=== PATIENT | male | born 1945 | race Caucasian/White ===

== ENCOUNTER 2016-03-12 15:46 | Emergency (ER) | payer MEDICARE ==
[~2016-03-12] VITALS: Ht 180.3 cm; Wt 94.8 kg
[~2016-03-12 15:46] MED LIST: APIX5TAB PO; ASP81CT PO; ASPI-983 PO; ATOR10TA66 PO; CEPH500C PO; CIPR-120 PO; CIPR-225 PO; CIPR500T78 PO; CPR250T PO; FNST5T PO; IBUP-30 PO; LEVO500T2 PO; LEVO500T80 PO; LISI10TA2 PO; LISI5TAB14 PO; Lisinopril PO; METO-270 PO; Metoprolol Succinate PO; NITR-65 PO; NITR100C3 PO; OMEG1CAP51 PO; OMG1KC PO; RIVA15TA PO; Rivaroxaban PO; SIMV10TA PO; SIMV40TA4 PO; Simvastatin PO; TMSL.4C PO; WARF7.5T PO
--- OUTSIDE RECORDS SUMMARY | 2016-03-12 15:51 | XMS REPORT | Continuity of Care Document ---
Author Author [facility] Organization [facility] Address Unknown Phone Unavailable Care Team Providers Care Flight Data Technician Name Role Phone ARNEL REZA MD PCP Insurance Providers Payer Name Policy Number Subscriber Name Relationship [employer] Gold Choice [id number] Jorge Alberto Caldwell 16 Self / Same As Patient Advance Directives Directive Response Recorded Date/Time Advance Directives No 03/15/14 5:31pm Health Care Power of Writing Manager No 03/15/14 5:31pm Organ Donor Yes 03/15/14 5:31pm Resuscitation Status Full Code 03/15/14 5:31pm Chief Complaint and Reason for Visit Chief Complaint BILATERAL PULMONARY EMBOLIS Reason for Visit Bilateral pulmonary embolism Chest pain Bilateral pulmonary embolism Problems Medical Problems Problem Onset Date Status acute renal failure/obstructive Unknown Active hematuria Unknown Active Obstructive Uropathy Unknown Active Urinary tract infectious disease Unknown Active hematuria Unknown Active Urinary obstruction Unknown Active UTI (urinary tract infection) Unknown Active Urinary tract infection Unknown Active Encounter for Sandhu catheter replacement Unknown Active Urinary tract infection Unknown Active Bilateral pulmonary embolism Unknown Active Chest pain Unknown Active Bilateral pulmonary embolism Unknown Active Medications Medication Dose Route Sig Days/Qty Instructions Order Date Discontinued Date Status Ciprofloxacin HCl 1 Tab PO TWICE A DAY 20 Qty 03/11/11 02/08/13 Discontinued Fish Oil 1,000 Mg PO DAILY 1 Qty 02/08/13 02/09/13 Discontinued [place]-3 Fatty Acids/Fish Oil 1,000 Mg PO DAILY 02/09/13 02/23/14 Discontinued Ibuprofen 400 Mg PO TWICE A DAY PRN PAIN TAKES 2 (200MG) TABLETS NEEDED FOR PAIN 02/09/13 03/03/13 Discontinued Warfarin Sodium 1 Each PO DAILY 03/03/13 02/23/14 Discontinued Tamsulosin HCl 0.4 Mg PO DAILY the patient has taken in several months 03/03/13 02/23/14 Discontinued Finasteride 5 Mg PO DAILY 03/03/13 02/23/14 Discontinued Aspirin 81 Mg PO DAILY 03/03/13 Active Nitrofurantoin Macrocrystals 100 Mg PO TWICE A DAY 7 Qty Clcr <60 mL/ minute: Contraindicated 03/05/13 09/11/13 Discontinued Cephalexin Monohydrate (Keflex) 1 Each PO FOUR TIMES DAILY 40 Qty 09/1102/23/14 Discontinued Nitrofurantoin Macrocrystals 1 Each PO TWICE A DAY 20 Qty 12/26/13 Discontinued Ciprofloxacin Hcl 250 Mg PO TWICE A DAY 7 Days 02/23/14 03/15/14 Discontinued [Rivaroxaban] 15 Mg PO BID@,17 42 Qty 03/19/14 Active [Metoprolol Succinate] 25 Mg PO DAILY 30 Qty 03/19/14 Active [Lisinopril] 5 Mg PO DAILY 30 Qty 03/19/14 Active [Simvastatin] 10 Mg PO BEDTIME 30 Qty 03/19/14 Active Social History Social History Problem Response Recorded Date/Time Alcohol Use Occasionally Uses 03/15/2014 5:32pm Recreational Drug Use No 03/15/2014 5:32pm Recent Foreign Travel No 09/11/2013 8:20am Recent Infectious Disease Exposure No 03/15/2014 5:32pm Hospitalization with Isolation Denies 03/19/2014 4:58pm Smoking Status Never a Smoker 03/15/2014 5:52pm Query Response Start Date Stop Date Smoking Status Never a Smoker Hospital Discharge Instructions No hospital discharge instructions. Plan of Care Discharge Date 03/19/14 3:19pm Disposition 30 STILL A PATIENT Instructions/Education Provided Pulmonary Embolism (DC) Prescriptions See Medications Section Referrals DR. TROTTER (Unspecified) Reason(s) for Referral: FOLLOW UP ON MARCH 26 AT 9:00 ([phone]) DR. REZA (Unspecified) Reason(s) for Referral: CALL TO SCHEDULE APPOINTMENT TO SEE DR. REZA IN 1 MONTH Care Plan and Goals Follow up with Dr Hernández per his reccomendation. Follow up with me in 1 month. Call in [facility] starter pac for first fill with #30 of the 20 mg tabs one daily after finishing starter pac with 11 refills thanks. Functional Status Query Response Date Recorded Comprehension Ability Understands Concepts March 17, 2014 9:00pm Allergies, Adverse Reactions, Alerts Allergen Type Severity Reaction Status Last Updated No Known Drug Allergies Active 02/08/13 Immunizations Name Given Type Date of Pneumonia Vaccine 02/11/13 Historical Date of Influenza Vaccine 02/11/13 Historical influenza, split (incl. purified surface antigen) 03/19/14 Administered influenza, split (incl. purified surface antigen) 03/19/14 Administered Vital Signs Acute Vital Signs Vital Response Date/Time Temperature (Fahrenheit) 98.0 degrees F (97.6 - 99.5) Temperature (Calculated Celsius) 36.27557 degrees C (36.4 - 37.5) Temperature Source Tympanic Pulse Rate (adult) 49 bpm (60 - 90) Respiratory Rate 20 bpm (12 - 24) O2 Sat by Pulse Oximetry 97 % (88 - 100) Blood Pressure 108/56 mm Hg Pain Pain Intensity 0 Height (Feet) 5 feet Height (Inches) 11.00 inches Height (Calculated Centimeters) 180.103607 cm Weight (Pounds) 203 pounds Weight (Ounces) 1.0 oz Weight (Calculated Grams) 52901.602 gm Weight (Calculated Kilograms) 92.115693 kilograms Calculated BMI 28.45 Results Laboratory Results Test Name Result Units Flags Reference Collection Date/Time Result Date/ Time Comments Urine Color YELLOW 02/23/2014 12:22pm 02/23/2014 1:10pm Urine Clarity VERY CLOUDY * 02/23/2014 12:22pm 02/23/2014 1:10pm Urine pH 6 5-9 02/23/2014 12:22pm 02/23/2014 1:10pm Urine Specific Lloyd 1.020 1.016-1.022 02/23/2014 12:22pm 2013 1:10pm Urine Protein 2+ * NEGATIVE 02/23/2014 12:22pm 02/23/2014 1:10pm Urine Glucose (UA) NEGATIVE NEGATIVE 02/23/2014 12:22pm 02/23/2014 1: 10pm Urine RBC (Auto) 3+ * NEGATIVE 02/23/2014 12:22pm 02/23/2014 1:10pm Urine Ketones NEGATIVE NEGATIVE 02/23/2014 12:22pm 02/23/2014 1:10pm Urine Nitrite NEGATIVE NEGATIVE 02/23/2014 12:22pm 02/23/2014 1:10pm Urine Bilirubin NEGATIVE NEGATIVE 02/23/2014 12:22pm 02/23/2014 1: 10pm Urine Urobilinogen NORMAL MG/DL NORMAL 02/23/2014 12:22pm 02/23/2014 1: 10pm Urine Leukocyte Esterase 3+ * NEGATIVE 02/23/2014 12:22pm 02/23/2014 1: 10pm Urine RBC 2-5 /HPF * 02/23/2014 12:22pm 02/23/2014 1:10pm Urine WBC >100 /HPF * 02/23/2014 12:22pm 02/23/2014 1:10pm Urine Bacteria FEW /HPF * 02/23/2014 12:22pm 02/23/2014 1:10pm Urine Squamous Epithelial Cells RARE /HPF 02/23/2014 12:22pm 2013 1:10pm Urine Crystals NONE /LPF 02/23/2014 12:22pm 02/23/2014 1:10pm Urine Casts NONE /LPF 02/23/2014 12:22pm 02/23/2014 1:10pm Urine Mucus NEGATIVE /LPF 02/23/2014 12:22pm 02/23/2014 1:10pm Urine Culture Indicated YES 02/23/2014 12:22pm 02/23/2014 1:10pm White Blood Count 5.1 10^3/uL 4.3-11.0 03/19/2014 3:30am 03/19/2014 4: 49am Red Blood Count 4.70 10^6/uL 4.35-5.85 03/19/2014 3:30am 03/19/2014 4: 49am Hemoglobin 14.4 G/DL 13.3-17.7 03/19/2014 3:30am 03/19/2014 4:49am Hematocrit 42 % 40-54 03/19/2014 3:30am 03/19/2014 4:49am Mean Corpuscular Volume 89 FL 80-99 03/19/2014 3:30am 03/19/2014 4: 49am Mean Corpuscular Hemoglobin 31 PG 25-34 03/19/2014 3:30am 03/19/2014 4: 49am Mean Corpuscular Hemoglobin Concent 34 G/DL 32-36 03/19/2014 3:30am 4:49am Red Cell Distribution Width 13.1 % 10.0-14.5 03/19/2014 3:30am 2014 4:49am Platelet Count 175 10^3/uL 130-400 03/19/2014 3:30am 03/19/2014 4:49am Mean Platelet Volume 10.6 FL H 7.4-10.4 03/19/2014 3:30am 03/19/2014 4: 49am Neutrophils (%) (Auto) 48 % 42-75 03/18/2014 5:03/18/2014 5:44am Lymphocytes (%) (Auto) 38 % 12-44 03/18/2014 5:03/18/2014 5:44am Monocytes (%) (Auto) 10 % 0-12 03/18/2014 5:03/18/2014 5:44am Eosinophils (%) (Auto) 4 % 0-10 03/18/2014 5:03/18/2014 5:44am Basophils (%) (Auto) 0 % 0-10 03/18/2014 5:03/18/2014 5:44am Neutrophils # (Auto) 2.5 X 10^3 1.8-7.8 03/18/2014 5:03/18/2014 5: 44am Lymphocytes # (Auto) 2.0 X 10^3 1.0-4.0 03/18/2014 5:03/18/2014 5: 44am Monocytes # (Auto) 0.5 X 10^3 0.0-1.0 03/18/2014 5:03/18/2014 5: 44am Eosinophils # (Auto) 0.2 10^3/uL 0.0-0.3 03/18/2014 5:03/18/2014 5 :44am Basophils # (Auto) 0.0 10^3/uL 0.0-0.1 03/18/2014 5:10am 03/18/2014 5: 44am Prothrombin Time 13.0 SEC 12.2-14.7 03/18/2014 5:10am 03/18/2014 5: 49am INR Comment 1.0 0.8-1.4 03/18/2014 5:10am 03/18/2014 5:49am INTERPRETIVE DATA SUGGESTED THERAPEUTIC RANGE FOR INR'S: VENOUS THROMBOSIS, PULMONARY EMBOLISM, OR PREVENTION OF SYSTEMIC EMBOLISM (EG. IN ATRIAL FIBRILLATION): 2.0 - 3.0 MECHANICAL PROSTHETIC HEART VALVES: 2.5 - 3.5* *NOTE: INR'S UP TO 4.5 MAY BE NECESSARY IN SELECTED GROUPS OF HIGH RISK PATIENTS. [employer] CONSENSUS CONFERENCE ON ANTITHROMBOTIC THERAPY (2000). Activated Partial Thromboplast Time 35 SEC 24-35 03/19/2014 3:30am 4:58am D-Dimer 2.36 UG/ML H 0.00-0.49 03/15/2014 10:50am 03/15/2014 11:13am Sodium Level 134 MMOL/L L 135-145 03/19/2014 3:30am 03/19/2014 4:54am Potassium Level 4.3 MMOL/L 3.6-5.0 03/19/2014 3:30am 03/19/2014 4:54am Chloride Level 104 MMOL/L 98-107 03/19/2014 3:30am 03/19/2014 4:54am Carbon Dioxide Level 23 MMOL/L 21-32 03/19/2014 3:30am 03/19/2014 4: 54am Blood Urea Nitrogen 30 MG/DL H 7-18 03/19/2014 3:30am 03/19/2014 4:54am Creatinine 1.12 MG/DL 0.60-1.30 03/19/2014 3:30am 03/19/2014 4:54am BUN/Creatinine Ratio 27 03/19/2014 3:30am 03/19/2014 4:54am Estimat Glomerular Filtration Rate > 60 03/19/2014 3:30am 2014 4:54am GFR INTERPRETIVE DATA UNITS FOR ESTIMATED GFR (eGFR): mL/min/1.73 M2 REFERENCE RANGE FOR ESTIMATED GFR (eGFR) eGFR NORMAL eGFR >60 MODERATELY DECREASED eGFR 30-59 SEVERLY DECREASED eGFR 15-29 KIDNEY FAILURE <15 (OR DIALYSIS) Glucose Level 84 MG/DL 70-105 03/19/2014 3:3003/19/2014 4:54am Calcium Level 9.4 MG/DL 8.5-10.1 03/19/2014 3:3003/19/2014 4:54am Magnesium Level 2.0 MG/DL 1.8-2.4 03/16/2014 7:27am 03/16/2014 7:56am Total Bilirubin 0.5 MG/DL 0.1-1.0 03/19/2014 3:3003/19/2014 4:54am Alkaline Phosphatase 76 U/L 40-136 03/19/2014 3:3003/19/2014 4:54am Aspartate Amino Transf (AST/SGOT) 24 U/L 5-34 03/19/2014 3:30am 2014 4:54am Alanine Aminotransferase (ALT/SGPT) 19 U/L 0-55 03/19/2014 3:3003/19 4:54am Creatine Kinase MB 4.0 NG/ML <6.6 03/15/2014 4:25pm 03/15/2014 4:52pm Troponin I < 0.30 NG/ML <0.30 03/15/2014 4:25pm 03/15/2014 4:52pm Troponin I < 0.30 NG/ML <0.30 03/15/2014 10:50am 03/15/2014 11:33am Myoglobin 98.6 NG/ML H 10.0-92.0 03/15/2014 10:50am 03/15/2014 11:33am B-Type Natriuretic Peptide 24.9 PG/ML <100.0 03/15/2014 10:50am 2014 11:27am Total Protein 6.2 G/DL L 6.4-8.2 03/19/2014 3:3003/19/2014 4:54am Albumin 3.5 G/DL 3.2-4.5 03/19/2014 3:3003/19/2014 4:54am Triglycerides Level 108 MG/DL <150 03/19/2014 3:3003/19/2014 4:54am Cholesterol Level 176 MG/DL < 200 03/19/2014 3:30am 03/19/2014 4:54am HDL Cholesterol 57 MG/DL 40-60 03/19/2014 3:30am 03/19/2014 4:54am LDL Cholesterol Direct 96 MG/DL 1-129 03/19/2014 3:30am 03/19/2014 4: 54am VLDL Cholesterol 22 MG/DL 5-40 03/19/2014 3:30am 03/19/2014 4:54am Thyroid Stimulating Hormone (TSH) 0.84 UIU/ML 0.35-4.94 03/16/2014 7: 27am 03/16/2014 8:13am Microbiology Results Procedure Source Result Collection Date/Time Result Date/Time Urine Culture Urine, Indwelling Cath (Shelter) PROTEUS SPECIES 02/23/2014 12:22pm 02/26/2014 10:58am PROTEUS SPECIES 02/23/2014 12:22pm 02/26/2014 10:58am PROBABLE PSEUDOMONAS 02/23/2014 12:22pm 02/26/2014 10:58am PROVIDENCIA RETTGERI 02/23/2014 12:22pm 02/26/2014 10:58am PROBABLE PSEUDOMONAS 02/23/2014 12:22pm 02/26/2014 10:58am PROVIDENCIA RETTGERI 02/23/2014 12:22pm 02/26/2014 10:58am PROTEUS MIRABILIS 02/23/2014 12:22pm 02/26/2014 10:58am PROVIDENCIA RETTGERI 02/23/2014 12:22pm 02/26/2014 10:58am PSEUDOMONAS AERUGINOSA 02/23/2014 12:22pm 02/26/2014 10:58am Procedures Procedure Status Date Provider(s) Tracing only of electrocardiogram completed 03/15/14 MARKIE FREIRE MD Tracing only of electrocardiogram completed 03/15/14 PREETI LEMOS MD Tracing only of electrocardiogram completed 03/15/14 PREETI LEMOS MD Tracing only of electrocardiogram completed 03/17/14 PREETI LEMOS MD Tracing only of electrocardiogram completed 03/18/14 PREETI LEMOS MD Tracing only of electrocardiogram completed 03/19/14 PREETI LEMOS MD Encounters Encounter Location Date/Time Discharged Inpatient [facility] 03/15/14 2:02pm Departed Emergency Room [facility] 02/23/14 12:22pm Recent Diagnosis Bilateral pulmonary embolism Chest pain Bilateral pulmonary embolism
[2016-03-12] MEDS ORDERED: ASPIRIN 81 MG CHEW (CHILDREN'S ASA) PO ONE (16:00)
[2016-03-12 16:02] LABS: BASOPHILS % (AUTO) 1 % (0-10); EOSINOPHILS % (AUTO) 0 % (0-10); LYMPHOCYTES # (AUTO) 1.3 X 10^3 (1.0-4.0); LYMPHOCYTES % (AUTO) 33 % (12-44); MEAN CORPUSCULAR HEMOGLOBIN 31 PG (25-34); MEAN CORPUSCULAR HGB CONC 34 G/DL (32-36); MEAN CORPUSCULAR VOLUME 92 FL (80-99); MONOCYTES # (AUTO) 1.1 X 10^3 (0.0-1.0); MONOCYTES % (AUTO) 27 % (0-12); NEUTROPHILS # (AUTO) 1.6 X 10^3 (1.8-7.8); NEUTROPHILS % (AUTO) 39 % (42-75); PLATELET COUNT 145 10^3/uL (130-400); RED BLOOD COUNT 4.74 10^6/uL (4.35-5.85); RED CELL DISTRIBUTION WIDTH 13.7 % (10.0-14.5)
[2016-03-12 16:15] LABS: INR 1.2 (0.8-1.4)
--- NOTE | 2016-03-12 16:23 | Diagnostic Imaging Report ---
Indication: Chest pain and dyspnea starting today. Discussion: Single portable upright view of the chest was obtained, comparison 06/01/2015. Moderate hiatal hernia, stable. Stable normal heart size. Low lung volumes with central atelectasis. No focal consolidation, pleural fluid or pneumothorax. No acute osseous abnormality. Impression: 1. Low lung volumes. Dictated by: Dictated on workstation # [id number]
[2016-03-12 16:29] LABS: ALANINE AMINOTRANSFERASE 24 U/L (0-55); ALBUMIN 4.1 G/DL (3.2-4.5); ANION GAP 9 MMOL/L (5-14); ASPARTATE AMINO TRANSFERASE 25 U/L (5-34); BAND NEUTROPHILS 1 %; BASOPHILS % (MANUAL) 0 %; BILIRUBIN,TOTAL 0.6 MG/DL (0.1-1.0); BLOOD UREA NITROGEN 18 MG/DL (7-18); BUN/CREATININE RATIO 15; CARBON DIOXIDE 21 MMOL/L (21-32); CHLORIDE 108 MMOL/L (98-107); CREATININE SERUM 1.23 MG/DL (0.60-1.30); EOSINOPHILS % (MANUAL) 0 %; GFR ESTIMATED 58; GLUCOSE 82 MG/DL (70-105); LYMPHOCYTES % (MANUAL) 49 %; MAGNESIUM 2.2 MG/DL (1.8-2.4); NEUTROPHILS % (MANUAL) 43 %; POTASSIUM 4.7 MMOL/L (3.6-5.0); REACTIVE LYMPHOCYTES 3 %; SODIUM 138 MMOL/L (135-145); TOTAL PROTEIN 6.9 G/DL (6.4-8.2)
[2016-03-12 16:38] LABS: MYOGLOBIN SERUM 69.8 NG/ML (10.0-92.0)
[2016-03-12 17:31] LABS: BILIRUBIN,URINE NEGATIVE (NEGATIVE); KETONES,URINE NEGATIVE (NEGATIVE); LEUKOCYTE ESTERASE ,URINE 3+ (NEGATIVE); NITRITE,URINE POSITIVE (NEGATIVE); PH,URINE 6 (5-9); PROTEIN,URINE 3+ (NEGATIVE); UROBILINOGEN,URINE 1 MG/DL (NORMAL)
[2016-03-12 17:42] LABS: WBC,URINE TNTC /HPF
--- NOTE | 2016-03-12 17:46 | ED Cardiac General ---
History of Present Illness General Chief Complaint: Chest Pain Stated Complaint: CP/SOA Nursing Triage Note: PT ARRIVED PER EMS, PT CO OF C/P STARTED DURING NITE, STATES PRESSURE, STATES HAS HAD COUGH AND SORE THROAT. ASA GIVEN BY EMS, NITRO X1 GIVEN BY EMS, SL IN PLACE L AC BY EMS. Source: patient Exam Limitations: no limitations History of Present Illness Time seen by provider: 17:41 Initial Comments The patient is a 70-year-old white male who presents with a chief complaint of chest pain. He reports that last evening he began to feel as if he might be feverish he then developed a sore throat and a cough. He has been coughing up some yellow to green sputum. He feels that he is clearly coming down with something. He also has a past history of rheumatic fever but has no known valvular disease at this time. He has had 2 coronary angiograms in the last 3+ years. Both of these were stated that show no blockage greater than 40 or 45 per since. He does not own an automobile and either walks or rides his bicycle. He continues to be employed. 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 (EMS) ASA po REAL ESTATE LOAN OFFICER: Yes (EMS) Allergies and Home Medications Allergies Coded Allergies: metoprolol (Unverified Allergy, Unknown, 09/18/14) "sunburn" rivaroxaban (Unverified Allergy, Unknown, 12/18/14) VOMITING/DIARRHEA Home Medications Apixaban 5 Mg Tablet #60 5 MG PO BID Prescribed by: GABRIELLE TROTTER on 06/03/15830 Aspirin 81 Mg Tablet.dr 81 MG PO DAILY (Reported) Atorvastatin Calcium 10 Mg Tablet #30 20 MG PO HS Prescribed by: GABRIELLE TROTTER on 06/03/15830 Levofloxacin 500 Mg Tablet #6 500 MG PO DAILY Prescribed by: MARKIE FREIRE on 10/24/159 Lisinopril 10 Mg Tablet #30 10 MG PO DAILY Prescribed by: GABRIELLE TROTTER on 06/03/15830 Review of Systems Constitutional: see HPI EENTM: Throat Pain Other (hoarseness) Respiratory: Cough Cardiovascular: Chest Pain Gastrointestinal: No Symptoms Reported Genitourinary: No Symptoms Reported Musculoskeletal: no symptoms reported Skin: no symptoms reported Psychiatric/Neurological: No Symptoms Reported Endocrine: No Symptoms Reported Hematologic/Lymphatic: No Symptoms Reported Past Luddose-Opueae-Tiubsk Hx Patient Social History Alcohol Use: Occasionally Uses Recreational Drug Use: Yes (etoh) Smoking Status: Never a Smoker Recent Foreign Travel: No Contact w/Someone Who Travel: No Recent Infectious Disease Expo: No Recent Hopitalizations: No Physical Abuse Screen: No Sexual Abuse: No Immunizations Up To Date Tetanus Booster (TDap): Unknown Date of Pneumonia Vaccine: Feb 11, 2013 Date of Influenza Vaccine: Apr 18, 2014 Seasonal Allergies Seasonal Allergies: No Surgeries HX Surgeries: Yes (BILATERAL CATARACTS) Surgeries: Eye Surgery Respiratory Hx Respiratory Disorders: Yes (PE 03/15/14) Respiratory Disorders: Pulmonary Embolism Cardiovascular Hx Cardiac Disorders: Yes (snypocal episode 09/17/14) Cardiac Disorders: Coronary Artery Disease, Deep Vein Thrombosis, Heart Murmur , High Cholesterol, Hypertension Neurological Hx Neurological Disorders: No Reproductive System Hx Reproductive Disorders: No Genitourinary Hx Genitourinary Disorders: Yes (obstructive uropathy with chronic solo cathater) Genitourinary Disorders: Benign Prostatic Hyperpl, Prostate Problems, Renal Failure, Neurogenic Bladder, UTI-Chronic Gastrointestinal Hx Gastrointestinal Disorders: No Musculoskeletal Hx Musculoskeletal Disorders: Yes (ANKLE FX) Musculoskeletal Disorders: Fractures Endocrine Hx Endocrine Disorders: No HEENT HX ENT Disorders: Yes (bilateral cataracts removed) HEENT Disorders: Cataract Loss of Vision: Denies Hearing Impairment: Denies Cancer Hx Cancer: No Psychosocial Hx Psychiatric Problems: No Integumentary HX Skin/Integumentary Disorder: No Blood Transfusions Hx Blood Disorders: No Family Medical History Family Medial History: Cancer 03 MOTHER Chest pain 03 FATHER Congestive heart failure 03 FATHER Family history: Arthritis 03 MOTHER Family history: Cardiovascular disease 03 FATHER Heart disease 03 FATHER Hypercholesterolemia 03 FATHER 03 MOTHER Myocardial infarction 03 FATHER Prostate cancer 03 FATHER Stroke 09 SISTER Visual impairment 09 SISTER No Family History of: Abdominal aortic aneurysm [place]'s disease Alcoholism Aphasia Cancer of colon Cataract Congenital heart disease Cystic fibrosis Dementia Dysphagia Family history: Allergy Family history: Alzheimer's disease Family history: Asthma Family history: Breast disease Family history: Coronary thrombosis Family history: Diabetes mellitus Family history: Gastrointestinal disease Family history: Glaucoma Family history: Hypertension Family history: Osteoporosis Family history: Thyroid disorder Headache Hearing loss Hereditary disease History of - anemia History of - disorder History of - respiratory disease History of drug abuse Human immunodeficiency virus (HIV) seropositivity Infertile Kidney disease Malignant neoplasm of lung Parkinson's disease Psychotic disorder Seizure disorder Tuberculosis Physical Exam Vital Signs Vital Sign - Last 12Hours Capillary Refill : Less Than 3 Seconds General Appearance: No Apparent Distress WD/WN HEENT: Normal ENT Inspection Neck: Full Range of Motion Normal Inspection Non Tender Respiratory: Decreased Breath Sounds Cardiovascular: Irregularly Irregular Gastrointestinal: Normal Bowel Sounds No Organomegaly No Pulsatile Mass Non Tender Extremity: Normal Capillary Refill Normal Inspection Normal Range of Motion Non Tender No Calf Tenderness No Pedal Edema Neurologic/Psychiatric: Alert Oriented x3 No Motor/Sensory Deficits Normal Mood/Affect Skin: Normal Color Warm/Dry Lymphatic: No Adenopathy Progress/Results/Core Measures Results/Orders Lab Results Laboratory Tests Test 03/12/16 15:51 03/12/16 17:14 Range/Units Activated Partial Thromboplast Time 26 24-35 SEC Alanine Aminotransferase (ALT/SGPT) 24 0-55 U/L Albumin 4.1 3.2-4.5 G/DL Alkaline Phosphatase 94 40-136 U/L Anion Gap 9 5-14 MMOL/L Aspartate Amino Transf (AST/SGOT) 25 5-34 U/L BUN/Creatinine Ratio 15 Band Neutrophils 1 % Basophils # (Auto) 0.0 0.0-0.1 10^3/uL Basophils % (Manual) 0 % Basophils (%) (Auto) 1 0-10 % Blood Morphology Comment NORMAL Blood Urea Nitrogen 18 7-18 MG/DL Calcium Level 9.0 8.5-10.1 MG/DL Carbon Dioxide Level 21 21-32 MMOL/L Chloride Level 108 H 98-107 MMOL/L Clumped Platelets OCCASIONAL Creatinine 1.23 0.60-1.30 MG/DL Eosinophils # (Auto) 0.0 0.0-0.3 10^3/uL Eosinophils % (Manual) 0 % Eosinophils (%) (Auto) 0 0-10 % Estimat Glomerular Filtration Rate 58 Glucose Level 82 70-105 MG/DL Hematocrit 43 40-54 % Hemoglobin 14.6 13.3-17.7 G/DL INR Comment 1.2 0.8-1.4 Lymphocytes # (Auto) 1.3 1.0-4.0 X 10^3 Lymphocytes % (Manual) 49 % Lymphocytes (%) (Auto) 33 12-44 % Magnesium Level 2.2 1.8-2.4 MG/DL Mean Corpuscular Hemoglobin 31 25-34 PG Mean Corpuscular Hemoglobin Concent 34 32-36 G/DL Mean Corpuscular Volume 92 80-99 FL Mean Platelet Volume 11.0 H 7.4-10.4 FL Monocytes # (Auto) 1.1 H 0.0-1.0 X 10^3 Monocytes % (Manual) 4 % Monocytes (%) (Auto) 27 H 0-12 % Myoglobin 69.8 10.0-92.0 NG/ML Neutrophils # (Auto) 1.6 L 1.8-7.8 X 10^3 Neutrophils % (Manual) 43 % Neutrophils (%) (Auto) 39 L 42-75 % Platelet Count 145 130-400 10^3/uL Potassium Level 4.7 3.6-5.0 MMOL/L Prothrombin Time 15.0 H 12.2-14.7 SEC Reactive Lymphocytes 3 % Red Blood Count 4.74 4.35-5.85 10^6/uL Red Cell Distribution Width 13.7 10.0-14.5 % Sodium Level 138 135-145 MMOL/L Total Bilirubin 0.6 0.1-1.0 MG/DL Total Protein 6.9 6.4-8.2 G/DL Troponin I < 0.30 <0.30 NG/ML White Blood Count 4.0 L 4.3-11.0 10^3/uL My Orders Orders-ERWIN DALLAS MD Ua Culture If Indicated (03/12/16 17:00) Vital Signs/I&O Vital Sign - Last 12Hours 03/12/16 03/12/16 15:46 15:46 Temp 98.2 Pulse 61 Resp 20 B/P 160/88 Pulse Ox 97 O2 Delivery Room Air Room Air Blood Pressure Mean: 112 Departure Impression Impression: Primary Impression: Bronchitis Disposition: 01 HOME, SELF-CARE Condition: Stable/Unchanged Departure-Patient Inst. Referrals: ARNEL REZA MD (PCP/Family) Primary Care Physician Patient Instructions: Acute Bronchitis in Adults Add. Discharge Instructions: All discharge instructions reviewed with patient and/or family. Voiced understanding. Plenty of rest and fluids. Take Z-Margarito as directed Scripts Azithromycin (Zithromax)250 Mg [id number] Mg PO UD #6 TAB TAKE 2 TABLETS TODAY, THEN TAKE 1 TABLET DAILY FOR 4 MORE DAYS Prov:ERWIN DALLAS MD 03/12/16 ERWIN DALLAS MD Mar 12, 2016 17:46
[2016-03-12] MEDS ORDERED: AZIT250T PO (17:50)
[2016-03-12 18:07] VITALS: BP 161/88
[2016-07-09] MEDS ORDERED: ASPI325T32 PO (11:27)
[2016-07-09] MEDS ORDERED: APIX5TAB PO ×2 (11:27→11:29)
[2016-07-09] MEDS ORDERED: LOVA10TA PO (11:27)
[2016-07-09] MEDS ORDERED: CIPR-225 PO (11:27)
== END 2016-03-12 18:02 | disposition home or self-care (01) ==
LOC: EDUNIT# 15:46 → ER 15:47
DX: J40 Bronchitis, not specified as acute or chronic (principal); I10 Essential (primary) hypertension; I25.10 Atherosclerotic heart disease of native coronary artery without angina pectoris; Z79.82 Long term (current) use of aspirin; Z79.899 Other long term (current) drug therapy; Z86.718 Personal history of other venous thrombosis and embolism
CPT/HCPCS: 36415; 51702; 71010; 80053; 81000; 83735; 83874; 84484; 85007; 85027; 85610; 85730; 87077; 87088; 87186; 93005; 93041

== ENCOUNTER 2016-07-07 16:20 | Inpatient (IN) | payer MEDICARE ==
[~2016-07-07] VITALS: Ht 180.3 cm; Wt 99.1 kg
[2016-07-07] VITALS (10 sets, daily range): BP systolic 130–170; BP diastolic 56–71
[~2016-07-07 16:20] MED LIST changes: +AZIT250T PO
[2016-07-07 16:43] LABS: BASOPHILS # (AUTO) 0.1 10^3/uL (0.0-0.1); BASOPHILS % (AUTO) 1 % (0-10); EOSINOPHILS # (AUTO) 0.1 10^3/uL (0.0-0.3); EOSINOPHILS % (AUTO) 2 % (0-10); LYMPHOCYTES # (AUTO) 2.1 X 10^3 (1.0-4.0); LYMPHOCYTES % (AUTO) 25 % (12-44); MEAN CORPUSCULAR HEMOGLOBIN 31 PG (25-34); MEAN CORPUSCULAR HGB CONC 34 G/DL (32-36); MEAN CORPUSCULAR VOLUME 91 FL (80-99); MEAN PLATELET VOLUME 10.7 FL (7.4-10.4); MONOCYTES % (AUTO) 12 % (0-12); NEUTROPHILS % (AUTO) 61 % (42-75); PLATELET COUNT 172 10^3/uL (130-400); RED BLOOD COUNT 4.44 10^6/uL (4.35-5.85); RED CELL DISTRIBUTION WIDTH 13.4 % (10.0-14.5); WHITE BLOOD COUNT 8.3 10^3/uL (4.3-11.0)
[2016-07-07] MEDS ORDERED: ASPIRIN 81 MG CHEW (CHILDREN'S ASA) PO ONE (16:45)
[2016-07-07] MEDS ORDERED: NITROGLYCERIN 2% OINT 1 GM UNIT DOSE PACKET TOP ONE (16:45)
--- NOTE | 2016-07-07 16:50 | ED Chest Pain ---
General Chief Complaint: Chest Pain Stated Complaint: CHEST PAIN/URINARY INFECTION Source: patient History of Present Illness Time seen by provider: 16:27 Initial Comments PT ARRIVES VIA POV C/O CHEST PAIN FOR THE LAST COUPLE OF DAYS STATES CHEST FEELS TIGHT AND RATES PAIN 3-4/10 C/O CONSTANT FEELING OF SHORTNESS OF BREATH + SWEATS HAS HAD A HEADACHE SINCE YESTERDAY, AND HAS BEEN LIGHTHEADED NO SWELLING TO LEGS / FEET OR PAIN IN CALVES NO PALPITATIONS NO RECENT ILLNESS, COUGH, FEVER, ETC. HAS HAD DVT WITH P.E. AND THIS FEELS SIMILAR TO P.E.--PT IS ON ELIQUIS AND DENIES ANY MISSED DOSES AND TOOK ONE THIS AM. PCP: DR. REZA ENVIRONMENTAL SPECIALIST: DR. TROTTER Allergies and Home Medications Allergies Coded Allergies: metoprolol (Unverified Allergy, Unknown, 09/18/14) "sunburn" rivaroxaban (Unverified Allergy, Unknown, 12/18/14) VOMITING/DIARRHEA Home Medications Apixaban 5 Mg Tablet, 5 MG PO BID, #60 Ref 4 Prescribed by: GABRIELLE TROTTER on 06/03/1531 Aspirin 81 Mg Tablet.dr, 81 MG PO DAILY, (Reported) Atorvastatin Calcium 10 Mg Tablet, 20 MG PO HS, #30 Ref 4 Prescribed by: GABRIELLE TROTTER on 06/03/15 0831 Azithromycin 250 Mg Tablet, 250 MG PO UD, #6 TAKE 2 TABLETS TODAY, THEN TAKE 1 TABLET DAILY FOR 4 MORE DAYS Prescribed by: ERWIN DALLAS on 03/12/16 1750 Levofloxacin 500 Mg Tablet, 500 MG PO DAILY, #6 Prescribed by: MARKIE FREIRE on 10/24/15 0219 Lisinopril 10 Mg Tablet, 10 MG PO DAILY, #30 Ref 4 Prescribed by: GABRIELLE TROTTER on 06/03/15 0831 Review of Systems Constitutional: see HPI, diaphoresis, dizziness, malaise, weakness EENTM: No Symptoms Reported Respiratory: See HPI, Shortness of Air, SOA With Exertion, SOA at Rest Cardiovascular: See HPI, Chest Pain, Denies Edema, Denies Irregular Heart Rate , Lightheadedness, Denies Palpitations, Denies Syncope Gastrointestinal: No Symptoms Reported Genitourinary: No Symptoms Reported Musculoskeletal: no symptoms reported Skin: no symptoms reported Psychiatric/Neurological: See HPI, Headache Endocrine: No Symptoms Reported Hematologic/Lymphatic: No Symptoms Reported Past Szsxpvf-Dwntmy-Gqzrfl Hx Patient Social History Recent Foreign Travel: No Contact w/Someone Who Travel: No Recent Hopitalizations: No Immunizations Up To Date Tetanus Booster (TDap): Unknown Date of Pneumonia Vaccine: Feb 11, 2013 Date of Influenza Vaccine: Apr 18, 2014 Seasonal Allergies Seasonal Allergies: No Surgeries HX Surgeries: Yes (BILATERAL CATARACTS) Surgeries: Eye Surgery Respiratory Hx Respiratory Disorders: Yes (PE 03/15/14) Respiratory Disorders: Pulmonary Embolism Cardiovascular Hx Cardiac Disorders: Yes (snypocal episode 09/17/14; DVT WITH P.E. 2014--ON ELIQUIS) Cardiac Disorders: Coronary Artery Disease, Deep Vein Thrombosis, Heart Murmur , High Cholesterol, Hypertension Neurological Hx Neurological Disorders: No Reproductive System Hx Reproductive Disorders: No Genitourinary Hx Genitourinary Disorders: Yes (obstructive uropathy with chronic solo cathater) Genitourinary Disorders: Benign Prostatic Hyperpl, Prostate Problems, Renal Failure, Neurogenic Bladder, UTI-Chronic Gastrointestinal Hx Gastrointestinal Disorders: No Musculoskeletal Hx Musculoskeletal Disorders: Yes (ANKLE FX) Musculoskeletal Disorders: Fractures Endocrine Hx Endocrine Disorders: No HEENT HX ENT Disorders: Yes (bilateral cataracts removed) HEENT Disorders: Cataract Loss of Vision: Denies Hearing Impairment: Denies Cancer Hx Cancer: No Psychosocial Hx Psychiatric Problems: No Integumentary HX Skin/Integumentary Disorder: No Blood Transfusions Hx Blood Disorders: No Family Medical History Family Medial History: Cancer (LINING OF ABD CAVITY, AT AGE 80) 03 MOTHER Chest pain (FATHER OF [place] AT AGE 83) 03 FATHER Congestive heart failure 03 FATHER Family history: Arthritis 03 MOTHER Family history: Cardiovascular disease 03 FATHER Heart disease 03 FATHER Hypercholesterolemia 03 FATHER 03 MOTHER Myocardial infarction 03 FATHER Prostate cancer (DIAGNOSED AT 72 OR 73 PER PT) 03 FATHER Stroke 09 SISTER Visual impairment (SISTER WEARS GLASSES ) 09 SISTER No Family History of: Abdominal aortic aneurysm [place]'s disease Alcoholism Aphasia Cancer of colon Cataract Congenital heart disease Cystic fibrosis Dementia Dysphagia Family history: Allergy Family history: Alzheimer's disease Family history: Asthma Family history: Breast disease Family history: Coronary thrombosis Family history: Diabetes mellitus Family history: Gastrointestinal disease Family history: Glaucoma Family history: Hypertension Family history: Osteoporosis Family history: Thyroid disorder Headache Hearing loss Hereditary disease History of - anemia History of - disorder History of - respiratory disease History of drug abuse Human immunodeficiency virus (HIV) seropositivity Infertile Kidney disease Malignant neoplasm of lung Parkinson's disease Psychotic disorder Seizure disorder Tuberculosis Physical Exam Vital Signs Vital Sign - Last 12Hours 07/07/16 16:20 Temp 97.2 Pulse 42 Resp 20 B/P (MAP) 187/86 Pulse Ox 97 O2 Delivery Room Air O2 Flow Rate 2.00 Capillary Refill : General Appearance: No Apparent Distress, WD/WN, Anxious HEENT: Other (POST OP CHANGES BILATERAL EYES WITH LEFT PUPIL SLIGHTLY LARGER THAN RIGHT) Neck: Full Range of Motion, Normal Inspection, Non Tender, Supple, No JVD Respiratory: Normal Breath Sounds, No Accessory Muscle Use, No Respiratory Distress Cardiovascular: No Edema, No JVD, Normal Peripheral Pulses, Bradycardia ( WITH REGULAR/IRREGULAR RHYTHM--PT IS IN BIGEMINY) Gastrointestinal: Non Tender, Soft Extremity: Normal Capillary Refill, Normal Range of Motion, Non Tender, No Calf Tenderness, Pedal Edema (TRACE ON LEFT), Other (VARICOSE VEINS BILATERALLY , WITH MILD CHRONIC VENOUS STASIS CHANGES--LEFT > RIGHT ) Neurologic/Psychiatric: Alert, Oriented x3, No Motor/Sensory Deficits, fiber machine tender II- XII Norm as Tested Skin: Normal Color, Diaphoresis (MILDLY ) Progress/Results/Core Measures Results/Orders Lab Results Laboratory Tests Test 07/07/16 16:30 Range/Units White Blood Count 8.3 4.3-11.0 10^3/uL Red Blood Count 4.44 4.35-5.85 10^6/uL Hemoglobin 13.6 13.3-17.7 G/DL Hematocrit 40 40-54 % Mean Corpuscular Volume 91 80-99 FL Mean Corpuscular Hemoglobin 31 25-34 PG Mean Corpuscular Hemoglobin Concent 34 32-36 G/DL Red Cell Distribution Width 13.4 10.0-14.5 % Platelet Count 172 130-400 10^3/uL Mean Platelet Volume 10.7 H 7.4-10.4 FL Neutrophils (%) (Auto) 61 42-75 % Lymphocytes (%) (Auto) 25 12-44 % Monocytes (%) (Auto) 12 0-12 % Eosinophils (%) (Auto) 2 0-10 % Basophils (%) (Auto) 1 0-10 % Neutrophils # (Auto) 5.0 1.8-7.8 X 10^3 Lymphocytes # (Auto) 2.1 1.0-4.0 X 10^3 Monocytes # (Auto) 1.0 0.0-1.0 X 10^3 Eosinophils # (Auto) 0.1 0.0-0.3 10^3/uL Basophils # (Auto) 0.1 0.0-0.1 10^3/uL Prothrombin Time 14.8 H 12.2-14.7 SEC INR Comment 1.2 0.8-1.4 Activated Partial Thromboplast Time 28 24-35 SEC Sodium Level 141 135-145 MMOL/L Potassium Level 4.6 3.6-5.0 MMOL/L Chloride Level 110 H 98-107 MMOL/L Carbon Dioxide Level 21 21-32 MMOL/L Anion Gap 10 5-14 MMOL/L Blood Urea Nitrogen 24 H 7-18 MG/DL Creatinine 1.49 H 0.60-1.30 MG/DL Estimat Glomerular Filtration Rate 46 BUN/Creatinine Ratio 16 Glucose Level 89 70-105 MG/DL Calcium Level 9.2 8.5-10.1 MG/DL Magnesium Level 2.3 1.8-2.4 MG/DL Total Bilirubin 0.6 0.1-1.0 MG/DL Aspartate Amino Transf (AST/SGOT) 16 5-34 U/L Alanine Aminotransferase (ALT/SGPT) 11 0-55 U/L Alkaline Phosphatase 98 40-136 U/L Total Creatine Kinase 156 30-200 U/L Creatine Kinase MB 4.4 <6.6 NG/ML Troponin I < 0.30 <0.30 NG/ML B-Type Natriuretic Peptide 347.8 H <100.0 PG/ML Total Protein 6.7 6.4-8.2 G/DL Albumin 4.0 3.2-4.5 G/DL Amylase Level 111 25-125 U/L Lipase 47 8-78 U/L TSH [place] Testing 1.40 0.35-4.94 UIU/ML My Orders Orders - SHAYY REYES DO Amylase (07/07/16 16:36) Cbc With Automated Diff (07/07/16 16:36) Comprehensive Metabolic Panel (07/07/16 16:36) Creatine Kinase (07/07/16 16:36) Creatine Kinase Mb (07/07/16 16:36) Lipase (07/07/16 16:36) Partial Thromboplastin Time (07/07/16 16:36) Protime With Inr (07/07/16 16:36) Troponin I (07/07/16 16:36) Chest 1 View, Ap/Pa Only (07/07/16 16:36) O2 (07/07/16 16:36) Ekg Tracing (07/07/16 16:36) Aspirin Chewable Tablet (Baby Aspirin Ch (07/07/16 16:45) BNP (07/07/16 16:36) Monitor-Rhythm Ecg Trace Only (07/07/16 16:36) Magnesium (07/07/16 16:36) Thyroid Analyzer (07/07/16 16:36) Nitroglycerin Ointment (Nitrobid Ointme (07/07/16 16:45) Medications Given in ED Current Medications Medications Dose Ordered Sig/Sukhjinder Route Start Time Stop Time Status Last Admin Dose Admin Aspirin 324 mg ONCE ONCE PO 07/07/16 16:45 07/07/16 16:46 DC 07/07/16 16:50 324 MG Nitroglycerin 0.5 inch ONCE ONCE TOP 07/07/16 16:45 07/07/16 16:46 DC 07/07/16 16:50 0.5 INCH Vital Signs/I&O Vital Sign - Last 12Hours 07/07/16 07/07/16 07/07/16 16:20 16:20 16:20 Temp 97.2 Pulse 42 Resp 20 B/P (MAP) 187/86 Pulse Ox 97 97 O2 Delivery Room Air Nasal Cannula Nasal Cannula O2 Flow Rate 2.00 Progress Note : Progress Note PT STATES HIS HEART RATE WAS IN 30'S ON HIS LAST ADMISSION--PT REMAINED IN BIGEMINY AND BRADYCARDIC DURING ENTIRE ER STAY PAIN RESOLVED AND BP DOWN WITH NITROPASTE UNEVENTFUL ER STAY ECG Initial ECG Impression Time: 16:26 Initial ECG Rate: 83 Initial ECG Comparisson: Unchanged Comment BIGEMINY WITH LBBB Diagnostic Imaging Comments CXR--NO ACUTE PROCESS, HIATAL HERNIA--PER RADIOLOGIST REPORT @ 1700 Reviewed: Reviewed by Me Departure Communication Progress Notes 1734--SPOKE WITH DR. HINOJOSA, FOR CARDIOLOGY CONSULT. HE DOES NOT ADVISE ANY TREATMENT OF BRADYCARDIA AT THIS TIME, DEFERS DVT/PE PROPHYLAXIS TO DR. HOPPER 6266--SPOKE WITH DR. HOPPER, ACCEPTS PT FOR ADMIT. SHE DOES NOT ADVISE ANY OTHER TREATMENT AT THIS TIME, WILL CONTINUE ELIQUIS Impression Impression: Primary Impression: Chest pain Additional Impression: BRADYCARDIA WITH BIGEMINY Disposition: ADMITTED INPATIENT Condition: Improved Decision to Admit Reason: Admit from ER (General) Decision to Admit/Date: July 07, 2016 Time/Decision to Admit Time: 17:40 Departure-Patient Inst. Referrals: ARNEL REZA MD (PCP/Family) Primary Care Physician SHAYY REYES DO July 07, 2016 16:50
--- NOTE | 2016-07-07 16:55 | Diagnostic Imaging Report ---
INDICATION: Chest pain. EXAMINATION: Portable chest at 4:45 p.m. FINDINGS: Heart size and pulmonary vascularity are normal. There is a hiatal hernia. Lungs are clear. There are no effusions or pneumothoraces. IMPRESSION: Hiatal hernia. No acute abnormalities seen in the chest. Dictated by: Dictated on workstation # [id number]
[2016-07-07 16:56] LABS: INR 1.2 (0.8-1.4); PROTHROMBIN TIME PATIENT 14.8 SEC (12.2-14.7)
[2016-07-07 17:07] LABS: ALANINE AMINOTRANSFERASE 11 U/L (0-55); AMYLASE 111 U/L (25-125); ANION GAP 10 MMOL/L (5-14); ASPARTATE AMINO TRANSFERASE 16 U/L (5-34); BILIRUBIN,TOTAL 0.6 MG/DL (0.1-1.0); BLOOD UREA NITROGEN 24 MG/DL (7-18); BUN/CREATININE RATIO 16; CALCIUM 9.2 MG/DL (8.5-10.1); CARBON DIOXIDE 21 MMOL/L (21-32); CHLORIDE 110 MMOL/L (98-107); CREATINE KINASE 156 U/L (30-200); CREATININE SERUM 1.49 MG/DL (0.60-1.30); GFR ESTIMATED 46; GLUCOSE 89 MG/DL (70-105); LIPASE 47 U/L (8-78); MAGNESIUM 2.3 MG/DL (1.8-2.4); POTASSIUM 4.6 MMOL/L (3.6-5.0); SODIUM 141 MMOL/L (135-145); TOTAL PROTEIN 6.7 G/DL (6.4-8.2)
[2016-07-07 17:28] LABS: TROPONIN I < 0.30 NG/ML (<0.30)
[2016-07-07] MEDS ORDERED: NITROGLYCERIN SUBLINGUAL 0.4 MG TAB (NITROSTAT) SL PRN (20:15)
[2016-07-07] MEDS ORDERED: CATHETER FLUSH 10 ML SYR IV PRN (20:15)
[2016-07-07] MEDS ORDERED: morphine INJ 4 MG/ML 1 ML (VIAL/SYRINGE) IV PRN (20:15)
[2016-07-07] MEDS: 1/2 NS IV SOLUTION 1,000 ML IV SCH (22:40)
[2016-07-07 23:24] LABS: BILIRUBIN,URINE NEGATIVE (NEGATIVE); KETONES,URINE NEGATIVE (NEGATIVE); LEUKOCYTE ESTERASE ,URINE 3+ (NEGATIVE); NITRITE,URINE POSITIVE (NEGATIVE); PH,URINE 6 (5-9); PROTEIN,URINE 2+ (NEGATIVE); UROBILINOGEN,URINE NORMAL (NORMAL)
[2016-07-07 23:34] LABS: WBC,URINE >100 /HPF
[2016-07-08] VITALS (11 sets, daily range): BP systolic 112–161; BP diastolic 62–72
[2016-07-08] MEDS: NITROGLYCERIN 2% OINT 1 GM UNIT DOSE PACKET TOP SCH ×4 (00:03→18:20)
[2016-07-08 04:09] LABS: BASOPHILS % (AUTO) 1 % (0-10); EOSINOPHILS # (AUTO) 0.2 10^3/uL (0.0-0.3); EOSINOPHILS % (AUTO) 3 % (0-10); LYMPHOCYTES # (AUTO) 1.9 X 10^3 (1.0-4.0); LYMPHOCYTES % (AUTO) 29 % (12-44); MEAN CORPUSCULAR HEMOGLOBIN 30 PG (25-34); MEAN CORPUSCULAR HGB CONC 33 G/DL (32-36); MEAN CORPUSCULAR VOLUME 91 FL (80-99); MEAN PLATELET VOLUME 10.6 FL (7.4-10.4); MONOCYTES # (AUTO) 0.7 X 10^3 (0.0-1.0); MONOCYTES % (AUTO) 11 % (0-12); NEUTROPHILS # (AUTO) 3.9 X 10^3 (1.8-7.8); NEUTROPHILS % (AUTO) 57 % (42-75); PLATELET COUNT 164 10^3/uL (130-400); RED BLOOD COUNT 4.31 10^6/uL (4.35-5.85); RED CELL DISTRIBUTION WIDTH 13.4 % (10.0-14.5); WHITE BLOOD COUNT 6.8 10^3/uL (4.3-11.0)
[2016-07-08 04:25] LABS: ALANINE AMINOTRANSFERASE 10 U/L (0-55); ALBUMIN 3.7 G/DL (3.2-4.5); ANION GAP 9 MMOL/L (5-14); ASPARTATE AMINO TRANSFERASE 15 U/L (5-34); BILIRUBIN,TOTAL 0.6 MG/DL (0.1-1.0); BLOOD UREA NITROGEN 25 MG/DL (7-18); BUN/CREATININE RATIO 22; CALCIUM 8.9 MG/DL (8.5-10.1); CARBON DIOXIDE 18 MMOL/L (21-32); CHLORIDE 109 MMOL/L (98-107); CHOLESTEROL 185 MG/DL (< 200); CREATININE SERUM 1.14 MG/DL (0.60-1.30); DIRECT LDL 119 MG/DL (1-129); GFR ESTIMATED > 60; GLUCOSE 85 MG/DL (70-105); POTASSIUM 4.3 MMOL/L (3.6-5.0); SODIUM 136 MMOL/L (135-145); TOTAL PROTEIN 6.2 G/DL (6.4-8.2); TRIGLYCERIDES 102 MG/DL (<150); VLDL CHOLESTEROL 20 MG/DL (5-40)
[2016-07-08] MEDS: 1/2 NS IV SOLUTION 1,000 ML IV SCH ×2 (06:41→17:17)
--- NOTE | 2016-07-08 08:22 | Diagnostic Imaging Report ---
PROCEDURE: CT angiography of the chest with contrast. TECHNIQUE: Multiple contiguous axial images were obtained through the chest after uneventful bolus administration of intravenous contrast. Reconstructed CTA MIP acquisitions were also performed. INDICATION: Shortness of breath. Chest pain. 125 mL of Omnipaque 350 is administered intravenously. FINDINGS: The left lower lobe pulmonary artery demonstrates a nonocclusive pulmonary embolus, new compared to 06/01/2015 exam. There is flow seen around it. It is also in the peripheral location within the vessel which can be seen with a recanalized subacute or chronic PE. This is not definitive and could be acute however. Correlate clinically. The thoracic aorta is normal in caliber. No dissection. The heart size is at the upper limits of normal. There is a moderate-sized hiatal hernia. No significantly enlarged mediastinal, hilar or axillary lymph nodes seen. The lungs demonstrate no significant consolidation, mass or suspicious nodule. There is mild scarring in the lung bases seen. Sections in the upper abdomen demonstrate no significant abnormality. Osseous structures demonstrate flowing syndesmophytes. IMPRESSION: 1. There is a nonocclusive embolus within the left lower lobe pulmonary artery, of indeterminate age. It is new from 06/01/2015 comparison exam, however. 2. Moderate-sized hiatal hernia. The critical findings were called to Dr. Jd Slater by Dr. Skelton at time of dictation. Dictated by: Dictated on workstation # [id number]
[2016-07-08] MEDS: ASPIRIN E.C. 325 MG (ECOTRIN) TABLET PO SCH (09:13)
[2016-07-08] MEDS ORDERED: HEParin DRIP 25000 UNIT/500ML 500 ML IV SCH (10:20)
--- NOTE | 2016-07-08 10:24 | Diagnostic Imaging Report ---
EXAMINATION: Bilateral lower extremity duplex venous ultrasound. TECHNIQUE: DVT protocol. Multiple sonographic images with color Doppler and waveform interrogation were performed of the lower extremity veins bilaterally with compression and augmentation maneuvers. INDICATION: Pulmonary embolism. FINDINGS: There is a partially occlusive thrombosis involving the lower aspect of the femoral vein in the distal thigh and the popliteal vein on both sides. Some color-flow is identified. The common femoral and proximal to mid segments of the femoral vein on both sides as well as the deep femoral vein are patent. The greater saphenous vein is compressible on both sides. The small saphenous vein on the right side demonstrates a clot. Flow is seen in the bilateral posterior tibial veins. The peroneal vein is not seen on both sides. IMPRESSION: Bilateral nonocclusive DVT involving the lower aspect of the femoral vein and popliteal vein on both sides. The findings were discussed with Dr. Molina by Dr. Skelton at the time of dictation. Dictated by: Dictated on workstation # [id number]
--- NOTE | 2016-07-08 10:31 | History & Physical-Hospitalist ---
HPI History of Present Illness: HPI/Chief Complaint CC: SOB HPI: This is a 70yoWM pt who presents with SOB. Pt has a history of heart caths performed by Dr. Mccall. Dr. Mccall Update: Dr. Mccall was informed that the pt has bilateral lower extremity DVTs and Bigeminy. Dr. Mccall states that he sent the pt to [facility] about a year ago, but he was noncompliant. Dr. Mccall would like the pt to be on Heparin for now. agronomy advisor: Pt's pulse is around 28 at times asymptomatic Patient Interview: Pt was informed that he has another PE, but the Xarelto is still helping. Pt states that he is now using Eliquis because after a year of taking Xarelto, it started to make him sick. Pt states that he does not smoke and he uses ETOH infrequently. Pt is feeling better now that he has been able to relax Pt has had two heart caths Feb 09 and one June 2015. Pt feels that he may need bypass, he does not want it, but he understands that this would be the best option for him. Physical exam stable. Lungs sound perfect. 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 Pt states that he is active walking his dog Dr Skelton notified me that his USG was + for bilateral DVT's so placed on Heparin and updated Dr Mccall who will see the patient. He should have had CABG 1 1/2 years ago but was lost to f/u. Scribed by Yara Baires under the direct supervision of Dr. Hopper. Source: patient Exam Limitations: no limitations Date Seen 07/08/16 Attending Physician Jd Slater MD PCP Jd Slater MD Referring Physician Date of Admission July 07, 2016 at 17:40 Home Medications & Allergies Home Medications Reviewed patient Home Medication Reconciliation Form Allergies Allergies Coded Allergies metoprolol (Unverified Allergy, Unknown, 09/18/14) "sunburn" rivaroxaban (Unverified Allergy, Unknown, 12/18/14) VOMITING/DIARRHEA Past Zixodnk-Nixtyh-Xgaxsi Hx Patient Social History Marrital Status: single Employed/Student: retired ([employer]) Alcohol Use: Occasionally Uses Recreational Drug Use: No Smoking Status: Never a Smoker 2nd Hand Smoke Exposure: No Physical Abuse Screen: No Sexual Abuse: No Recent Foreign Travel: No Contact w/other who traveled: No Recent Hopitalizations: No Recent Infectious Disease Expo: No Immunizations Up To Date Tetanus Booster (TDap): Unknown Date of Pneumonia Vaccine: Feb 11, 2013 Date of Influenza Vaccine: Apr 18, 2014 Seasonal Allergies Seasonal Allergies: No Surgeries HX Surgeries: Yes (BILATERAL CATARACTS) Surgeries: Eye Surgery Respiratory Hx Respiratory Disorders: Yes (PE 03/15/14) Cardiovascular Hx Cardiovascular Disorders: Yes (snypocal episode 09/17/14; DVT WITH P.E. 2015- -ON ELIQUIS) Cardiac Disorders: Coronary Artery Disease, Deep Vein Thrombosis, Heart Murmur , High Cholesterol, Hypertension Neurological Hx Neurological Disorders: No Reproductive System Hx Reproductive Disorders: No Genitourinary Hx Genitourinary Disorders: Yes (obstructive uropathy with chronic solo cathater) Genitourinary Disorders: Benign Prostatic Hyperpl, Prostate Problems, Renal Failure, Neurogenic Bladder, UTI-Chronic Gastrointestinal Hx Gastrointestinal Disorders: No Musculoskeletal Hx Musculoskeletal Disorders: Yes (ANKLE FX) Musculoskeletal Disorders: Fractures Endocrine Hx Endocrine Disorders: No HEENT HX ENT Disorders: Yes (bilateral cataracts removed) HEENT Disorders: Cataract Loss of Vision: Denies Hearing Impairment: Denies Cancer Hx Cancer: No Psychosocial Hx Psychiatric Problems: No Integumentary HX Skin/Integumentary Disorder: No Blood Transfusions Hx Blood Disorders: No Family Medical History Family Hx: Cancer (LINING OF ABD CAVITY, AT AGE 80) 03 MOTHER Chest pain (FATHER OF [place] AT AGE 83) 03 FATHER Congestive heart failure 03 FATHER Family history: Arthritis 03 MOTHER Family history: Cardiovascular disease 03 FATHER Heart disease 03 FATHER Hypercholesterolemia 03 FATHER 03 MOTHER Myocardial infarction 03 FATHER Prostate cancer (DIAGNOSED AT 70 OR 71 PER PT) 03 FATHER Stroke 09 SISTER Visual impairment (SISTER WEARS GLASSES ) 09 SISTER No Family History of: Abdominal aortic aneurysm [place]'s disease Alcoholism Aphasia Cancer of colon Cataract Congenital heart disease Cystic fibrosis Dementia Dysphagia Family history: Allergy Family history: Alzheimer's disease Family history: Asthma Family history: Breast disease Family history: Coronary thrombosis Family history: Diabetes mellitus Family history: Gastrointestinal disease Family history: Glaucoma Family history: Hypertension Family history: Osteoporosis Family history: Thyroid disorder Headache Hearing loss Hereditary disease History of - anemia History of - disorder History of - respiratory disease History of drug abuse Human immunodeficiency virus (HIV) seropositivity Infertile Kidney disease Malignant neoplasm of lung Parkinson's disease Psychotic disorder Seizure disorder Tuberculosis Review of Systems Constitutional: see HPI EENTM: no symptoms reported Respiratory: short of breath Cardiovascular: chest pain Gastrointestinal: no symptoms reported Genitourinary: no symptoms reported Musculoskeletal: no symptoms reported Skin: no symptoms reported Psychiatric/Neurological: No Symptoms Reported All Other Systems Reviewed Negative Unless Noted: Yes Physical Exam Physical Exam Vital Signs Vital Sign - Last 12Hours 07/07/16 16:20 Temp 97.2 Pulse 42 Resp 20 B/P (MAP) 187/86 Pulse Ox 97 O2 Delivery Room Air O2 Flow Rate 2.00 Capillary Refill : Less Than 3 Seconds General Appearance: No Apparent Distress, WD/WN, Chronically ill Eyes: Bilateral Eye Normal Inspection, Bilateral Eye PERRL HEENT: PERRL/EOMI, Normal ENT Inspection, Pharynx Normal Neck: Full Range of Motion, Normal Inspection, Non Tender, Supple, Carotid Bruit Respiratory: Chest Non Tender, Lungs Clear, Normal Breath Sounds, No Accessory Muscle Use, No Respiratory Distress Cardiovascular: No Edema, No Gallop, No JVD, No Murmur, Normal Peripheral Pulses, Bradycardia Gastrointestinal: Normal Bowel Sounds, No Organomegaly, No Pulsatile Mass, Non Tender, Soft Back: Normal Inspection, No CVA Tenderness, No Vertebral Tenderness Extremity: Normal Capillary Refill, Normal Inspection, Normal Range of Motion, Non Tender, No Calf Tenderness, No Pedal Edema Neurologic/Psychiatric: Alert, Oriented x3, No Motor/Sensory Deficits, Normal Mood/Affect Skin: Normal Color, Warm/Dry Lymphatic: No Adenopathy Results Results/Procedures Lab Laboratory Tests 07/07/16 16:30 07/08/16 03:40 Assessment/Plan Admission Diagnosis Assessment: Pulmonary embolism due to bilateral lower extremity DVTs occlusive type Poor follow-up and compliance with bypass surgery recommendations 1-1/[address] Mccall Prior pulmonary embolism should've been on Eliquis but noncompliant for the past one year Assessment and Plan Plan: Heparin drip protocol Dr Mccall to see patient and evaluate bigeminy issues Poor compliance with f/u with Dr. Slater and Dr. Mccall Clinical Quality Measures AMI/AHF: ASA po Prior to arrival: No DVT/VTE Risk/Contraindication: Risk Factor Score Per Nursin RFS Level Per Nursing on Admit: 2=Moderate DEBBIE HOPPER DO July 08, 2016 10:31
[2016-07-08 10:53] LABS: INR 1.1 (0.8-1.4); PROTHROMBIN TIME PATIENT 14.2 SEC (12.2-14.7)
[2016-07-08] MEDS: HEParin 1000 UNIT/ML BOLUS (FULL THERAPY) IV PRN (12:12)
--- NOTE | 2016-07-08 12:52 | Consultation-Cardiology ---
HPI-Cardiology Cardiology Consultation Date of Consultation 07/08/16 Date of Admission Indication: chest pain HPI 70-year-old gentleman with history of coronary artery disease, he was referred to sent to [facility] for evaluation for bypass, patient did not go for his appointment. Did not follow-up with my office. Return to the hospital for increasing shortness of breath and chest pain for the past few days. He has been noncompliant with his medications. He denied any syncope or near- syncopal episode, expressed that he usually exercise and walk for 3-5 miles without difficulties. Was resistant to have any cardiac testing or any follow- up done initially, he agreed on a cardiac catheterization at this point Home Medications & Allergies Allergies: Coded Allergies: metoprolol (Unverified Allergy, Unknown, 09/18/14) "sunburn" rivaroxaban (Unverified Allergy, Unknown, 12/18/14) VOMITING/DIARRHEA Home Medication List Reviewed: Yes [id number] Hx Patient Social History Marital Status: single Employed/Student: retired ([employer]) Alcohol Use: Occasionally Uses Recreational Drug Use: No Smoking Status: Never a Smoker 2nd Hand Smoke Exposure: No Recent Foreign Travel: No Recent Infectious Disease Expo: No Recent Hopitalizations: No Physical Abuse Screen: No Sexual Abuse: No Immunizations Up To Date Tetanus Booster (TDap): Unknown Date of Pneumonia Vaccine: Feb 11, 2013 Date of Influenza Vaccine: Apr 18, 2014 Past Medical History Past medical history as discussed below Family Medical History Family History: Cancer (LINING OF ABD CAVITY, AT AGE 80) 03 MOTHER Chest pain (FATHER OF [place] AT AGE 83) 03 FATHER Congestive heart failure 03 FATHER Family history: Arthritis 03 MOTHER Family history: Cardiovascular disease 03 FATHER Heart disease 03 FATHER Hypercholesterolemia 03 FATHER 03 MOTHER Myocardial infarction 03 FATHER Prostate cancer (DIAGNOSED AT 70 OR 71 PER PT) 03 FATHER Stroke 09 SISTER Visual impairment (SISTER WEARS GLASSES ) 09 SISTER No Family History of: Abdominal aortic aneurysm [place]'s disease Alcoholism Aphasia Cancer of colon Cataract Congenital heart disease Cystic fibrosis Dementia Dysphagia Family history: Allergy Family history: Alzheimer's disease Family history: Asthma Family history: Breast disease Family history: Coronary thrombosis Family history: Diabetes mellitus Family history: Gastrointestinal disease Family history: Glaucoma Family history: Hypertension Family history: Osteoporosis Family history: Thyroid disorder Headache Hearing loss Hereditary disease History of - anemia History of - disorder History of - respiratory disease History of drug abuse Human immunodeficiency virus (HIV) seropositivity Infertile Kidney disease Malignant neoplasm of lung Parkinson's disease Psychotic disorder Seizure disorder Tuberculosis Constitutional: see HPI, malaise, weakness EENTM: no symptoms reported, see HPI Respiratory: see HPI, No cough, dyspnea on exertion, No hemoptysis, No orthopnea, No phlegm, short of breath, No stridor, No wheezing, No other Cardiovascular: see HPI, chest pain, No edema, No Hx of Intervention, No palpitations, No syncope, No vascular heart diseas, No other Gastrointestinal: no symptoms reported, see HPI Genitourinary: no symptoms reported, see HPI Musculoskeletal: no symptoms reported, see HPI Skin: no symptoms reported, see HPI Psychiatric/Neurological: No Symptoms Reported, See HPI Reviewed Test Results Reviewed Test Results Lab Laboratory Tests Test 07/07/16 16:30 07/07/16 22:50 07/07/16 23:05 07/08/16 03:40 Range/Units White Blood Count 8.3 6.8 4.3-11.0 10^3/uL Red Blood Count 4.44 4.31 L 4.35-5.85 10^6/uL Hemoglobin 13.6 13.1 L 13.3-17.7 G/DL Hematocrit 40 39 L 40-54 % Mean Corpuscular Volume 91 91 80-99 FL Mean Corpuscular Hemoglobin 31 30 25-34 PG Mean Corpuscular Hemoglobin Concent 34 33 32-36 G/DL Red Cell Distribution Width 13.4 13.4 10.0-14.5 % Platelet Count 172 164 130-400 10^3/uL Mean Platelet Volume 10.7 H 10.6 H 7.4-10.4 FL Neutrophils (%) (Auto) 61 57 42-75 % Lymphocytes (%) (Auto) 25 29 12-44 % Monocytes (%) (Auto) 12 11 0-12 % Eosinophils (%) (Auto) 2 3 0-10 % Basophils (%) (Auto) 1 1 0-10 % Neutrophils # (Auto) 5.0 3.9 1.8-7.8 X 10^3 Lymphocytes # (Auto) 2.1 1.9 1.0-4.0 X 10^3 Monocytes # (Auto) 1.0 0.7 0.0-1.0 X 10^3 Eosinophils # (Auto) 0.1 0.2 0.0-0.3 10^3/uL Basophils # (Auto) 0.1 0.0 0.0-0.1 10^3/uL Prothrombin Time 14.8 H 12.2-14.7 SEC INR Comment 1.2 0.8-1.4 Activated Partial Thromboplast Time 28 24-35 SEC Sodium Level 141 136 135-145 MMOL/L Potassium Level 4.6 4.3 3.6-5.0 MMOL/L Chloride Level 110 H 109 H 98-107 MMOL/L Carbon Dioxide Level 21 18 L 21-32 MMOL/L Anion Gap 10 9 5-14 MMOL/L Blood Urea Nitrogen 24 H 25 H 7-18 MG/DL Creatinine 1.49 H 1.14 0.60-1.30 MG/DL Estimat Glomerular Filtration Rate 46 > 60 BUN/Creatinine Ratio 16 22 Glucose Level 89 85 70-105 MG/DL Calcium Level 9.2 8.9 8.5-10.1 MG/DL Magnesium Level 2.3 1.8-2.4 MG/DL Total Bilirubin 0.6 0.6 0.1-1.0 MG/DL Aspartate Amino Transf (AST/SGOT) 16 15 5-34 U/L Alanine Aminotransferase (ALT/SGPT) 11 10 0-55 U/L Alkaline Phosphatase 98 88 40-136 U/L Total Creatine Kinase 156 30-200 U/L Creatine Kinase MB 4.4 <6.6 NG/ML Troponin I < 0.30 < 0.30 <0.30 NG/ML B-Type Natriuretic Peptide 347.8 H <100.0 PG/ML Total Protein 6.7 6.2 L 6.4-8.2 G/DL Albumin 4.0 3.7 3.2-4.5 G/DL Amylase Level 111 25-125 U/L Lipase 47 8-78 U/L TSH [place] Testing 1.40 0.35-4.94 UIU/ML Myoglobin 59.0 10.0-92.0 NG/ML Urine Color YELLOW Urine Clarity SLIGHTLY CLOUDY Urine pH 6 5-9 Urine Specific [place] 1.015 L 1.016-1.022 Urine Protein 2+ H NEGATIVE Urine Glucose (UA) NEGATIVE NEGATIVE Urine Ketones NEGATIVE NEGATIVE Urine Nitrite POSITIVE H NEGATIVE Urine Bilirubin NEGATIVE NEGATIVE Urine Urobilinogen NORMAL NORMAL MG/DL Urine Leukocyte Esterase 3+ H NEGATIVE Urine RBC (Auto) 4+ H NEGATIVE Urine RBC 5-10 H /HPF Urine WBC >100 H /HPF Urine Crystals NONE /LPF Urine Bacteria FEW H /HPF Urine Casts NONE /LPF Urine Mucus NEGATIVE /LPF Urine Culture Indicated YES Triglycerides Level 102 <150 MG/DL Cholesterol Level 185 < 200 MG/DL LDL Cholesterol Direct 119 1-129 MG/DL VLDL Cholesterol 20 5-40 MG/DL HDL Cholesterol 53 40-60 MG/DL Test 07/08/16 10:30 07/08/16 14:06 Range/Units Prothrombin Time 14.2 12.2-14.7 SEC INR Comment 1.1 0.8-1.4 Activated Partial Thromboplast Time 29 133 *H 24-35 SEC Physical Exam Vital Signs Vital Sign - Last 12Hours 07/07/16 16:20 Temp 97.2 Pulse 42 Resp 20 B/P (MAP) 187/86 Pulse Ox 97 O2 Delivery Room Air O2 Flow Rate 2.00 Capillary Refill : Less Than 3 Seconds General Appearance: No Apparent Distress, WD/WN Eyes: Bilateral Eye EOMI, Bilateral Eye Normal Inspection, Bilateral Eye PERRL HEENT: PERRL/EOMI, TMs Normal, Normal ENT Inspection, Pharynx Normal Neck: Full Range of Motion, Normal Inspection, Non Tender, Supple, Carotid Bruit Respiratory: Chest Non Tender, Lungs Clear, Normal Breath Sounds, No Accessory Muscle Use, No Respiratory Distress Cardiovascular: Regular Rate, Rhythm, No Edema, No Gallop, No JVD, No Murmur, Normal Peripheral Pulses Gastrointestinal: Normal Bowel Sounds, No Organomegaly, No Pulsatile Mass, Non Tender, Soft Back: Normal Inspection, No CVA Tenderness, No Vertebral Tenderness Extremity: Normal Capillary Refill, Normal Inspection, Normal Range of Motion, Non Tender, No Calf Tenderness, No Pedal Edema Neurologic/Psychiatric: Alert, Oriented x3, No Motor/Sensory Deficits, Normal Mood/Affect Skin: Normal Color, Warm/Dry Lymphatic: No Adenopathy A/P-Cardiology Admission Diagnosis Anterior chest pain Coronary artery disease Pulmonary embolism Bradycardia Assessment/Plan Chest pain, resembling angina, patient has extensive cardiac history, cardiac catheterization showed extensive disease, patient will need bypass surgery, it is high risk due to the history of DVT, he requested to have it done at [facility] last here, did not follow-up with the surgeon, we discussed the importance of his condition and I offered him to be transferred to [place] to a tertiary care center for cardiac catheterization and possible bypass surgery, patient is resistant to have anything done at this point, he agreed on having a cardiac catheterization done in our hospital and follow-up with the surgeon as an outpatient but definitely does not want to be transferred to any other hospital. Coronary artery disease, cardiac catheterization was done in October 2012 and then in May 2015, both times patient was referred for bypass surgery and did not follow-up with the surgeon, we had a long discussion again emphasized the importance of having a bypass surgery done, he agreed on having a cardiac catheterization done but did not agree on being transferred to a tertiary care center for evaluation, patient wanted to be done as an outpatient Acute pulmonary embolism in the right upper lobe with deep venous thrombosis, history of DVT and PE in the past, patient has been on Eliquis but has been noncompliant with his medications. 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 Continue to monitor Hypertension, continue on lisinopril and monitor blood pressure Hyperlipidemia, monitor lipid and educated on compliance with medication Left bundle branch block, chronic, currently in bradycardia with ventricular bigeminy, patient has history of chronic sinus bradycardia with sick sinus syndrome, intolerant to beta blockers in the past. Probably will require to have a pacemaker implanted eventually. History of chronic urinary obstruction, had indwelling urinary catheter, managed by Dr. Yost, continue to monitor Clinical Quality Measures AMI/AHF: ASA po Prior to arrival: No DVT/VTE Risk/Contraindication: Risk Factor Score Per Nursin RFS Level Per Nursing on Admit: 2=Moderate GABRIELLE TROTTER MD July 08, 2016 12:52 pm
[2016-07-08] MEDS ORDERED: NS IV 1000 ML 0 ML ONE (15:22)
[2016-07-08] MEDS ORDERED: HEParin (CATH LAB) 2,000 ML IV ONE (15:22)
[2016-07-08] MEDS ORDERED: LIDOCAINE 1% INJ 20 ML (XYLOCAINE) VIAL ONE ×2 (15:22→19:21)
[2016-07-08] MEDS ORDERED: fentaNYL INJECTION 100 MCG/2 ML AMP ONE (18:05)
[2016-07-08] MEDS ORDERED: MIDAZOLAM 5 MG/5 ML (VERSED) VIAL ONE (18:05)
[2016-07-08] MEDS ORDERED: diphenhydrAMINE 50 MG/ML INJ (BENADRYL) ONE (18:05)
[2016-07-08] MEDS ORDERED: VERAPAMIL 5 MG/2 ML (CALAN) VIAL IV ONE (18:05)
[2016-07-08] MEDS ORDERED: NITROGLYCERIN DRIP 25 MG/D5W 250 ML IV ONE (18:06)
--- NOTE | 2016-07-08 18:39 | Cardiac Procedure Note-CS/ASA ---
Pre-Procedure Note Pre-Op Procedure Note H&P Reviewed The H&P was reviewed, patient examined and no changes noted. Date H&P Reviewed: July 08, 2016 Time H&P Reviewed: 18:39 Conscious Sedation Pre-Proced Time Reviewed: 18:39 ASA Class: 3 Airway Mallampati Classification: (kletsel dehe wintun appropriate class) I. II. III, IV Lungs Heart ASA score ASA 1: a normal healthy patient ASA 2: a patient with a mild systemic disease (mid diabetes, controlled hypertension, obesity ASA 3: a patient with a severe systemic disease that limits activity (angina , COPD, prior Myocardial infarction) ASA 4: a patient with an incapacitating disease that is a constant threat to life (CHF, renal failure) ASA 5: a moribund patient not expected to survive 24 hrs. (ruptured aneurysm) ASA 6: a declared brain patient whose organs are being harvested. For emergent operations, add the letter E after the classification Grade 1 Sedation Plan: Analgesia, Amnesia, Plan communicated to team members, Discussed options with patient/fam, Discussed risks with patient/fam Note The patient is an appropriate candidate to undergo the planned procedure, sedation, and anesthesia. The patient immediately re-assessed prior to indication. Gabrielle HINOJOSA MD July 08, 2016 6:39 pm
--- NOTE | 2016-07-08 20:02 | Cardiology Post Procedure Note ---
Post-Procedure Note Post-Op Procedure Note Procedure Start Date: July 08, 2016 Procedure Start Time: 20:00 Name of Procedure: Coronary angiography Findings/Procedure Note Significant LM disease, severe three vessel CAD Anesthesia Type: Conscious Sedation Estimated blood loss (mL): 30 ml Contrast Amount: 83 ml Post-Operative Diagnosis Post-operative diagnosis: Severe LM and three vessel CAD - Surgery is recommended Gabrielle HINOJOSA MD July 08, 2016 8:02 pm
[2016-07-08] MEDS ORDERED: PATIENT MAY USE OWN MEDS, ALL PO SCH (20:15)
[2016-07-08] MEDS: NS IV 1000 ML 1,000 ML IV SCH (23:44)
[2016-07-09] VITALS: BP 151/78
--- NOTE | 2016-07-09 03:01 | CARDIAC CATHETERIZATION ---
DATE OF SERVICE: 07/08/2016 CORONARY ANGIOGRAPHY REFERRING TURN SEWER: Dr. Mccall. INDICATION: Shortness of breath, Chest pain, previous history of left main disease without revascularization. PREOPERATIVE DIAGNOSES: Shortness of breath and chest pain, previous history of left main, severe triple -vessel disease, referred to surgery. However, the patient never followed up with surgery. POSTOPERATIVE DIAGNOSES: Left main disease, severe three-vessel disease. HISTORY: The patient is a 70-year-old gentleman who is a patient of Dr. Mccall. He previously had coronary angiography which showed left main disease and severe 3-vessel disease and was referred for surgery to [facility]. However, the patient never followed up with cardiac surgery and also did not follow up with cardiology. He presented in the last 24 hours with complaints of shortness of breath and chest pain and the working diagnosis is pulmonary embolism. The patient also has sinus bradycardia with ventricular bigeminy, although he is asymptomatic with normal blood pressure. Coronary angiography is recommended to evaluate for left main disease and transfer for cardiac surgery. COMPLICATIONS: None. SPECIMENS: None. BLOOD LOSS: 30 mL. ANTICOAGULATION: IV heparin. CONTRAST: 83 mL of Omnipaque. FLUOROSCOPY TIME: 13.9 minutes. FLUOROSCOPY DOSE: 893 mg. PROCEDURE IN DETAIL: The patient was brought to the laboratory apparatus glass blower after informed consent was taken. All the risks and complications were explained. He was draped and prepped in the usual sterile fashion. We gained access in the right radial artery with a 6-Afghan sheath. The patient has significantly tortuous right brachiocephalic artery. Therefore, it was very difficult to get to the aortic root with Troung catheter. We therefore exchanged the Truong catheter with a JL4 catheter; however, due to the tortuosity neither could be manipulate the catheter nor we were able to get to the aortic root. Therefore, we gained access in the right femoral artery with a 6-Afghan sheath. There was a kink in the sheath, therefore we were not able to pass a catheter or wire through it. During the process, we pulled the sheath back just so that at least we were able to pass the wire; however, the sheath came out. A manual pressure was held. We then gained access in the left femoral artery with a 6-Afghan sheath and coronary angiography was performed with a JR4 catheter and JL4 catheter. FINDINGS: 1. Left main: 50-60% distal left main disease. 2. LAD: moderate to severe proximal stenosis (60%). There is no severe disease in the rest of the LAD. Severe ostial stenosis of the first diagonal vessel which is 90% stenosis. 3. LCX: Severe ostial left circumflex artery stenosis with haziness. The stenosis severity is around 80 to 90%. There is also severe proximal first obtuse marginal artery stenosis with stenosis severity of 80 to 90%. 3. RCA: RCA has severe proximal 95% stenosis. There is also a mid stenosis which is 95% and distal disease which is also 80 to 90%. IMPRESSION/CONCLUSION: 1. Significant left main disease, severe 3-vessel disease. 2. Cardiac surgery is recommended. 3. Aggressive secondary prevention measures are recommended. Job ID: [id number] DocumentID: [id number] Dictated Date: 07/08/2016 19:50:19 Bobtail Driver Date: 07/09/2016 02:43:29 Dictated By: RADHA HINOJOSA MD MTDD
[2016-07-09] MEDS: NS IV 1000 ML 1,000 ML IV SCH (03:03)
[2016-07-09 04:00] VITALS: BP 130/64
[2016-07-09] MEDS: HEParin 1000 UNIT/ML BOLUS (FULL THERAPY) IV PRN (07:30)
[2016-07-09 08:18] VITALS: BP 140/68
[2016-07-09] MEDS: ASPIRIN E.C. 325 MG (ECOTRIN) TABLET PO SCH (08:52)
[2016-07-09] MEDS ORDERED: CIPR-225 PO (11:27)
[2016-07-09] MEDS ORDERED: LOVA10TA PO (11:27)
[2016-07-09] MEDS ORDERED: APIX5TAB PO ×2 (11:27→11:29)
[2016-07-09] MEDS ORDERED: ASPI325T32 PO (11:27)
[2016-07-09] MEDS ORDERED: APIXABAN 5 MG (ELIQUIS) TABLET PO NR (11:33)
--- NOTE | 2016-07-09 11:47 | Discharge Summary-Hospitalist ---
Diagnosis/Chief Complaint Date of Admission July 08, 2016 at 11:36 Date of Discharge Discharge Date: July 09, 2016 Admission Diagnosis Assessment: Pulmonary embolism due to bilateral lower extremity DVTs occlusive type Poor follow-up and compliance with bypass surgery recommendations 1-1/[address] Mccall Prior pulmonary embolism should've been on Eliquis but noncompliant for the past one year Discharge Diagnosis Assessment: Pulmonary embolism due to bilateral lower extremity DVTs occlusive type non- compliant with Eliquis Poor follow-up and compliance with bypass surgery recommendations 1-1/[address] Mccall now confirmed on cath yesterday that he needs bypass surgery and he is agreeable for clinic evaluation for Dr Canales and refused ambulance transfer after cath Prior pulmonary embolism should've been on Eliquis but noncompliant for the past one year Chronic in-dwelling catheter Plan: Heparin drip protocol Dr Mccall to see patient and evaluate bigeminy issues Poor compliance with f/u with Dr. Slater and Dr. Mccall Reason Hospital Visit/Course CC: SOB HPI: This is a 70yoWM pt who presents with SOB. Pt has a history of heart caths performed by Dr. Mccall. Dr. Mccall Update: Dr. Mccall was informed that the pt has bilateral lower extremity DVTs and Bigeminy. Dr. Mccall states that he sent the pt to [facility] about a year ago, but he was noncompliant. Dr. Mccall would like the pt to be on Heparin for now. project control officer: Pt's pulse is around 28 at times asymptomatic Patient Interview: Pt was informed that he has another PE, but the Xarelto is still helping. Pt states that he is now using Eliquis because after a year of taking Xarelto, it started to make him sick. Pt states that he does not smoke and he uses ETOH infrequently. Pt is feeling better now that he has been able to relax Pt has had two heart caths Feb 09 and one June 2015. Pt feels that he may need bypass, he does not want it, but he understands that this would be the best option for him. Physical exam stable. Lungs sound perfect. 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 Pt states that he is active walking his dog Dr Skelton notified me that his USG was + for bilateral DVT's so placed on Heparin and updated Dr Mccall who will see the patient. He should have had CABG 1 1/2 years ago but was lost to f/u. Scribed by Yara Baires under the direct supervision of Dr. Hopper. Note from 07/09/16 Chart Review: No fever, Vitals stable Pharmacy Review: Pt has 10 days worth of Eliquis at home. Pt needs Eliquis 10 BID for PE. Pt needs Lovastatin. Pt will receive coupon for Eliquis. Palliative Care Review: Pt can go home on Xarelto. Pt needs CABG but is not critical now. project control officer: Pt was on Eliquis. Pt has a Sandhu cath tube in. Pt has chronic urinary bladder infection. Confer with Cardiology if pt can be DC. Patient Interview: Pt states he has about 10 days worth of Eliquis with him. Pt states he has an appointment with Dr. Canales on Tuesday. Pt states he has a cath in currently. Pt states cath has been in for 3 months. Pt states he might have UTI. Pt would like cath changed. Pt states he would like to start seeing Dr. Hardin. Pt states he uses [facility]. Plan: Confer with Cardiology Scribed by Calixto Bradley under the direct supervision of Dr. Hopper. No fever, vital signs stable, pleasant Regular rate and rhythm, clear to auscultation bilaterally Hospital course: Patient had a lengthy hospital course he was admitted for shortness of breath found to have recurrent pulmonary embolism considering he had been noncompliant with Eliquis for the past one year the ultrasound on the lower extremity showed bilateral occlusive DVTs but he did undergo cardiac catheter after 3 attempts they did perform the catheter with radial approach he was found to have multivessel disease refused ambulance transfer for bypass surgery with Dr. Canales at [facility] and agreed for outpatient clinic appointment on Tuesday. Chronic indwelling catheter was removed and replaced and UTI per luminary culture prompted Cipro to be initiated for UTI treatment chronic with acute flare. Overall his prognosis remains poor considering his significant noncompliance with every medical recommendations initiated and poor follow-up with primary care provider office but he did seem interested in establishing his care with Dr. [place] so that was encouraged and he will be counseled to fill all of his new medications sent to his pharmacy but overall prognosis remains poor. Discharge Summary Discharge Physical Examination Allergies: Coded Allergies: metoprolol (Unverified Allergy, Unknown, 09/18/14) "sunburn" rivaroxaban (Unverified Allergy, Unknown, 12/18/14) VOMITING/DIARRHEA Vitals & I&Os Vital Signs Date Time Temp Pulse Resp B/P (MAP) Pulse Ox O2 Delivery O2 Flow Rate FiO2 07/09/16 13:14 98.8 34 20 135/70 98 07/08/16 08:30 Room Air 07/07/16 21:08 2.00 Hospital Course Labs (last 24 hrs) Laboratory Tests 07/08/16 14:06: Activated Partial Thromboplast Time 133*H 07/08/16 16:36: Activated Partial Thromboplast Time 98H 07/09/16 04:20: Platelet Count 182 07/09/16 07:09: Activated Partial Thromboplast Time 51H Microbiology 07/07/16 Urine Culture - Preliminary, Resulted Gram Negative Mark Gram Negative Mark#2 Enterococcus Faecalis Pending Labs Laboratory Tests 07/09/16 07:09: Activated Partial Thromboplast Time 51 Discharge Home Medications: Active Scripts Active Eliquis (Apixaban) 5 Mg Tablet 5 Mg PO BID START AFTER ELIQUIS 10MG BID X 7 DAYS Cipro (Ciprofloxacin HCl) 500 Mg Tablet 500 Mg PO BID Lovastatin 10 Mg Tablet 10 Mg PO DAILY Eliquis (Apixaban) 5 Mg Tablet 10 Mg PO BID 2 TABLETS TWICE DAILY X 7 DAYS Aspirin EC (Aspirin) 325 Mg Tablet.dr 325 Mg PO DAILY 30 Days Instructions to patient/family Please see electonic discharge instructions given to patient. Clinical Quality Measures AMI/AHF: ASA po Prior to arrival: No DVT/VTE Risk/Contraindication: Risk Factor Score Per Nursin RFS Level Per Nursing on Admit: 2=Moderate DEBBEI HOPPER DO July 09, 2016 11:47
--- NOTE | 2016-07-09 11:54 | Cardiology Progress Note ---
Cardiology SOAP Progress Note Subjective: no complaints Objective: I&O/Vital Signs Vital Sign - Last 12Hours 07/09/16 07/09/16 07/09/16 07/09/16 00:00 00:56 04:00 07:23 Temp 98.0 97.8 Pulse 32 53 28 30 Resp 18 18 B/P (MAP) 151/78 130/64 Pulse Ox 97 97 07/09/16 08:18 Temp 98.6 Pulse 36 Resp 18 B/P (MAP) 140/68 Pulse Ox 94 Intake and Output 07/09/16 00:00 Intake Total 1000 ml Balance 1000 ml Weight (Pounds): 218 Weight (Ounces): 6.0 Weight (Calculated Kilograms): 99.896999 Side: left Groin site without hematoma: No Device Insertion Site: without hematoma Constitutional: No appears stated age, No AAO x 3, No apparent distress, No PERRL, No well-developed, No well-nourished, No other Respiratory: chest expansion is symmetric, chest is bilaterally symmetric, lungs clear to percussion, lungs clear to auscultation Cardiovascular: regular rate-rhythm, S1 and S2 Gastrointestional: No tender, No soft, No round, No distended, No pulsatile mass, No organomegaly, No guarding, No rebound, No tenderness, No hernia, No mass, No audible bowel sounds, No abnormal bowel sounds, No abdominal bruits, No spleenomegaly, No other Extremities: No normal range of motion, No non-tender, No normal inspection, No pedal edema, No calf tenderness, No normal capillary refill, No pelvis stable , No calf tenderness, No inflammation, No pedal edema, No slow capillary refill , No swelling, other (right radial pulse palpable, normal right and left groin with no bruits.), No abrasion, No clubbing, No cyanosis, No ecchymosis, No laceration, No no lower extremity edema bilateral, No significant edema, No tenderness, No wound Neurologic/Psychiatric: No brush holder assembler II-XII nml as tested, No no motor/sensory deficits, No alert, No normal mood/affect, No oriented x 3, No abnormal cerebellar tests, No abnormal brush holder assembler II-XII, No abnormal gait, No aphasia, No EOM palsy, No facial droop, No motor weakness, No sensory deficit, No depressed affect, No disoriented x 3, No other, No grossly intact, No power is 5/5 both on sides Skin: No normal color, No warm/dry, No cyanosis, No cool, No diaphoresis, No damp, No ecchymosis, No jaundice, No mottled, No pallor, No rash, No tattoos/ piercings, No ulcerations, No rash on exposed areas, No ulcerations on exposed areas, No other Results/Procedures: Labs Laboratory Tests 07/08/16 14:06: Activated Partial Thromboplast Time 133*H 07/08/16 16:36: Activated Partial Thromboplast Time 98H 07/09/16 04:20: Platelet Count 182 07/09/16 07:09: Activated Partial Thromboplast Time 51H Microbiology 07/07/16 Urine Culture - Preliminary, Resulted Gram Negative Mark Gram Negative Mark#2 Probable Enterococcus Species A/P: Assessment/Dx: Chest pain, known history of severe coronary artery disease, status post coronary angiography yesterday Plan: Coronary angiography revealed severe left main and [place] three-vessel disease. I spoke at length to the patient and recommended inpatient transfer to [facility] for CABG however the patient refused. Dr. Mccall had also previously discussed with him but he refused as well. He has an appointment with Dr. Estrada on Tuesday and the patient promised me that he will keep the appointment. Medication compliance was also strongly recommended. All the risks of not following up with Dr. Estrada and early CABG were explained including recurrent NC and even . Patient will follow-up with Dr. Mccall as an outpatient as well. 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 Thank you for your consultation. Please call me if you have any questions. Jordyn Santos MD, FACP, FACC, FSCAI, FHRS, CCDS Interventional Cardiology Cardiac Electrophysiology Vascular Medicine and Endovascular Interventions Clinical Quality Measures AMI/AHF: ASA po Prior to arrival: Gabrielle Hicks MD July 09, 2016 11:54
[2016-07-09 13:14] VITALS: BP 135/70
--- NOTE | 2016-07-12 13:12 | ECHOCARDIOGRAPHY REPORT ---
DATE OF SERVICE: 07/08/2016 A 2D ECHOCARDIOGRAM REFERRING PHYSICIAN: INDICATION: Chest pain. MEASUREMENT: LVID end diastolic 5.8. IVS thickness 1.3. LVPW thickness 1.1. Left atrial diameter 4.3. Ejection fraction 50%. FINDINGS: 1. Technical quality is good. 2. The left ventricle is normal in size. The patient was in ventricular bigeminy which affected the quality of the study. Overall, systolic function appeared to be preserved. Estimated ejection fraction 50%. 3. The left atrium is mildly dilated. No clot or thrombus were seen within the left atrium. 4. The right atrium and right ventricle are normal in size. No clot or thrombus were seen within the right side. 5. Mitral valve is normal in morphology with mild mitral regurgitation noted by color Doppler flow, no mitral valve prolapse, no mitral valve stenosis. 6. Aortic valve is calcified, trileaflet with normal opening and closing pattern, no significant aortic valve stenosis was noted. Mild aortic regurgitation noted by color Doppler flow. 7. Tricuspid valve is normal in morphology with mild tricuspid regurgitation noted by color Doppler flow. Doppler across the tricuspid valve estimated pulmonary artery pressure of 10 plus right atrial pressure. 8. Pulmonic valve is functioning normally. 9. No pericardial effusion. CONCLUSION: 1. Normal left ventricular size, patient is in ventricular bigeminy. Overall systolic function appeared to be preserved. Estimated ejection fraction 50%. 2. Mildly dilated left atrium. 3. Aortic valve sclerosis, no aortic stenosis, mild aortic regurgitation. 4. Mild mitral and tricuspid regurgitation. 5. Estimated pulmonary artery pressure of 15 to 20 mmHg. Job ID: [id number] DocumentID: [id number] Dictated Date: 07/12/2016 08:08:13 Contract Runner Date: 07/12/2016 09:49:20 Dictated By: GABRIELLE TROTTER MD
== END 2016-07-09 13:40 | disposition home or self-care (01) | DRG 176 ==
LOC: EDUNIT# 16:20 → ER 16:22 → UNDOADMOB 17:40 → CSD 17:40 → OBSVTOIN 07-08 11:26 → INTOOBSV 07-08 11:36 → UNDODISIN 07-09 13:40
PROVIDERS: ADMIT Internal Medicine; ATTEND Internal Medicine
PROC: B2111ZZ Fluoroscopy of Multiple Coronary Arteries using Low Osmolar Contrast (ICD-10-PCS; principal; 2016-07-08)
DX: I26.99 Other pulmonary embolism without acute cor pulmonale (principal); I82.413 Acute embolism and thrombosis of femoral vein, bilateral; I82.433 Acute embolism and thrombosis of popliteal vein, bilateral; I50.22 Chronic systolic (congestive) heart failure; N39.0 Urinary tract infection, site not specified; E78.5 Hyperlipidemia, unspecified; I10 Essential (primary) hypertension; I44.7 Left bundle-branch block, unspecified; I25.10 Atherosclerotic heart disease of native coronary artery without angina pectoris; N40.1 Benign prostatic hyperplasia with lower urinary tract symptoms; Z79.01 Long term (current) use of anticoagulants; Z91.14 Patient's other noncompliance with medication regimen; Z91.19 Patient's noncompliance with other medical treatment and regimen
CPT/HCPCS: 36415; 71010; 71275; 80053; 80061; 81000; 82150; 82550; 82553; 83690; 83735; 83874; 83880; 84443; 84484; 85025; 85049; 85610; 85730; 87077; 87088; 87186; 93005; 93041; 93306; 93970; G0378

== ENCOUNTER 2016-09-08 17:28 | Inpatient (IN) | payer MEDICARE, MEDICAID ==
[~2016-09-08] VITALS: Ht 180.3 cm; Wt 98.2 kg
[~2016-09-08 17:28] MED LIST changes: +ASPI325T32 PO; +LOVA10TA PO; -METO-270 PO; +METO-387 PO
--- OUTSIDE RECORDS SUMMARY | 2016-09-08 17:35 | XMS REPORT | Continuity of Care Document ---
Author Author [facility] Organization [facility] Address Unknown Phone Unavailable Allergies Active Description Code Type Severity Reaction Onset Reported/Identified Relationship to Patient Clinical Status Yes No Known Drug Allergies [id number] Drug Allergy Unknown N/ A 02/08/2013 Yes metoprolol [id number] Drug Allergy Unknown N/A 09/18/2014 Yes rivaroxaban [id number] Drug Allergy Unknown N/A 12/18/2014 Medications Problems Date Dx Coded Attending Type Code Diagnosis Diagnosed By 03/05/2013 SOLOMON CAMPOS, JAYJAY A Ot 257.2 03/05/2013 SOLOMON CAMPOS, JAYJAY A Ot 414.01 03/05/2013 SOLOMON CAMPOS, JAYJAY A Ot 425.4 03/05/2013 SOLOMON CAMPOS, JAYJAY A Ot 428.0 03/05/2013 SOLOMON CAMPOS, JAYJAY A Ot 564.00 03/05/2013 SOLOMON CAMPOS, JAYJAY A Ot 586 03/05/2013 SOLOMON CAMPOS, JAYJAY A Ot 596.54 03/05/2013 SOLOMON CAMPOS, JAYJAY A Ot 599.0 03/05/2013 SOLOMON CAMPOS, JAYJAY A Ot 599.71 03/05/2013 SOLOMON CAMPOS, JAYJAY A Ot 600.01 03/05/2013 SOLOMON CAMPOS, JAYJAY A Ot 607.84 03/05/2013 SOLOMON CAMPOS, JAYJAY A Ot 788.20 03/05/2013 SOLOMON CAMPOS, JAYJAY A Ot V12.51 03/05/2013 SOLOMON CAMPOS, JAYJAY A Ot V58.61 03/05/2013 SOLOMON CAMPOS, JAYJAY A Ot V58.66 09/11/2013 ROSEMARY CAMPOS, PIEDAD Waller Ot 599.0 URIN TRACT INFECTION NOS 09/11/2013 ROSEMARY CAMPOS, PIEDAD Waller Ot 729.81 SWELLING OF LIMB 09/11/2013 ROSEMARY CAMPOS, PIEDAD Waller Ot 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 09/11/2013 ROSEMARY CAMPOS, PIEDAD Waller Ot V12.51 HX-VENOUS THROMBOSIS EMBOLISM 09/11/2013 ROSEMARY CAMPOS, PIEDAD Waller Ot V58.61 ANTICOAGULANTS,LT,CURRENT USE 09/11/2013 PIEDAD RILEY MD Ot V58.69 OTH MED,LT,CURRENT USE 12/26/2013 ERIC DO, SHAYY K Ot 599.0 URIN TRACT INFECTION NOS 12/26/2013 ERIC DO, SHAYY K Ot 788.20 RETENTION OF URINE NOS 12/26/2013 ERIC DO, SHAYY K Ot V53.6 FITTING URINARY DEVICES 02/23/2014 PHANI VILLA SHACKLER Ot 599.0 URIN TRACT INFECTION NOS 02/23/2014 PHANI VILLA SHACKLER Ot V55.6 ATTEN TO URINOSTOMY NEC 03/19/2014 ARNEL REZA MD Ot 415.19 03/19/2014 ARNEL REZA MD Ot 453.40 03/19/2014 ARNEL REZA MD Ot 414.01 CORONARY ATHEROSCLEROSIS OF [place] CORON 03/19/2014 ARNEL REZA MD Ot 414.8 CHR ISCHEMIC HRT DIS NEC 03/19/2014 ARNEL REZA MD Ot 415.19 OTH PULMON EMBOLISM/INFARCT 03/19/2014 ARNEL REZA MD Ot 453.40 ACUTE VENOUS EMBOLISM THROMBOSIS UNSP 03/19/2014 ARNEL REZA MD Ot 596.54 NEUROGENIC BLADDER, NOT OTHERWISE SPECIF 03/19/2014 ARNEL REZA MD Ot 600.01 HYPERTROPHY (BENIGN) OF PROSTATE W URINA 03/19/2014 ARNEL REZA MD Ot 788.20 RETENTION OF URINE NOS 03/19/2014 ARNEL REZA MD Ot V04.81 ND FOR PROPHYLACTIC VACCIN AND INOCULATI 03/19/2014 ARNEL REZA MD Ot V15.81 HX OF PAST NONCOMPLIANCE 03/19/2014 ARNEL REZA MD Ot 414.01 03/19/2014 ARNEL REZA MD Ot 414.8 03/19/2014 ARNEL REZA MD Ot 415.19 03/19/2014 ARNEL REZA MD Ot 453.40 03/19/2014 ARNEL REZA MD Ot 596.54 03/19/2014 LIBIA CAMPOS, ARNEL Jenkins Ot 600.01 03/19/2014 ARNEL REZA MD Ot 788.20 03/19/2014 ARNEL REZA MD Ot V15.81 04/11/2014 ROSE MARIE CAMPOS, GABRIELLE J Ot 414.00 04/11/2014 ROSE MARIE CAMPOS, BASHAR J Ot 425.4 04/11/2014 ROSE MARIE CAMPOS, BASHAR J Ot 426.3 04/11/2014 ROSE MARIE CAMPOS, BASHAR J Ot 453.40 04/23/2014 ROSE MARIE CAMPOS, BASHAR J Ot 414.00 04/23/2014 ROSE MARIE CAMPOS, BASHAR J Ot 425.4 04/23/2014 ROSE MARIE CAMPOS, BASHAR J Ot 426.3 04/23/2014 ROSE MARIE CAMPOS, BASHAR J Ot 453.40 05/05/2014 Ot 599.70 HEMATURIA, UNSPECIFIED 09/18/2014 ROSE MARIE CAMPOS, BASHAR J Ot 414.00 09/18/2014 ROSE MARIE CAMPOS, BASHAR J Ot 425.4 09/18/2014 ROSE MARIE CAMPOS, BASHAR J Ot 426.3 09/18/2014 ROSE MARIE CAMPOS, BASHAR J Ot 453.40 09/18/2014 ARNEL REZA MD Ot 272.4 HYPERLIPIDEMIA NEC/NOS 09/18/2014 ARNEL REZA MD Ot 305.02 ALCOHOL ABUSE-EPISODIC 09/18/2014 ARNEL REZA MD Ot 401.9 HYPERTENSION NOS 09/18/2014 ARNEL REZA MD Ot 596.54 NEUROGENIC BLADDER, NOT OTHERWISE SPECIF 09/18/2014 ARNEL REZA MD Ot 780.2 SYNCOPE AND COLLAPSE 09/18/2014 ARNEL REZA MD Ot 791.9 ABN URINE FINDINGS NEC 09/18/2014 ARNEL REZA MD Ot V12.51 HX-VENOUS THROMBOSIS EMBOLISM 09/18/2014 ARNEL REZA MD Ot V12.55 PERSONAL HISTORY OF PULMONARY EMBOLISM 12/18/2014 ROSEMARY CAMPOS, PIEDAD Waller Ot N13.9 OBSTRUCTIVE AND REFLUX UROPATHY, UNSPECI 12/18/2014 PIEDAD RILEY MD Ot N39.0 URINARY TRACT INFECTION, SITE NOT SPECIF 12/18/2014 PIEDAD RILEY MD Ot R31.9 HEMATURIA, UNSPECIFIED 12/18/2014 ROSEMARY CAMPOS, PIEDAD Waller Ot 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 12/18/2014 ROSEMARY CAMPOS, PIEDAD Waller Ot Z79.899 OTHER DETENTION (CURRENT) DRUG THERAPY 06/03/2015 WARD EPSTEIN DEBBIE Ot E78.5 HYPERLIPIDEMIA, UNSPECIFIED 06/03/2015 WARD DO, DEBBIE Ot I10 ESSENTIAL (PRIMARY) HYPERTENSION 06/03/2015 WARD EPSTEIN DEBBIE Ot I25.110 ATHSCL HEART DISEASE OF [place] COR ART W 06/03/2015 WARD DO DEBBIE Ot I44.7 LEFT BUNDLE-BRANCH BLOCK, UNSPECIFIED 06/03/2015 WARD DO DEBBIE Ot 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 SYSTOLIC (CONGESTIVE) HEART FAIL 06/03/2015 WARD EPSTEIN DEBBIE Ot I70.0 ATHEROSCLEROSIS OF [place] 06/03/2015 WARD EPSTEIN DEBBIE Ot I82.402 ACUTE EMBOLISM AND THOMBOS UNSP DEEP VEI 06/03/2015 WARD EPSTEIN DEBBIE Ot 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 06/03/2015 WARD EPSTEIN DEBBIE Ot N13.9 OBSTRUCTIVE AND REFLUX UROPATHY, UNSPECI 06/03/2015 WARD EPSTEIN DEBBIE Ot 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 06/03/2015 WARD EPSTEIN DEBBIE Ot Z79.899 OTHER ELECTRONIC CALIBRATION TECHNICIAN (CURRENT) DRUG THERAPY 06/10/2015 WARD EPSTEIN DEBBIE Ot E78.5 06/10/2015 WARD EPSTEIN DEBBIE Ot I10 06/10/2015 WARD EPSTEIN DEBBIE Ot I25.110 06/10/2015 WARD EPSTEIN, DEBBIE Ot I44.7 06/10/2015 WARD EPSTEIN, DEBBIE Ot I50.22 06/10/2015 WARD DO, DEBBIE Ot I70.0 06/10/2015 WARD EPSTEIN DEBBIE Ot I82.402 06/10/2015 WARD EPSTEIN DEBBIE Ot I82.91 06/10/2015 WARD DO, DEBBIE Ot N13.9 06/10/2015 WARD EPSTEIN DEBBIE Ot Z79.01 06/10/2015 WARD EPSTEIN DEBBIE Ot Z79.899 07/27/2015 BRUPIEDAD PANDA MD Ot F17.210 NICOTINE DEPENDENCE, CIGARETTES, UNCOMPL 07/27/2015 PIEDAD RILEY MD Ot N39.0 URINARY TRACT INFECTION, SITE NOT SPECIF 07/27/2015 PIEDAD RILEY MD Ot N40.1 ENLARGED PROSTATE WITH LOWER URINARY TRA 07/27/2015 PIEDAD RILEY MD Ot 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 07/29/2015 PIEDAD RILEY MD Ot F17.210 NICOTINE DEPENDENCE, CIGARETTES, UNCOMPL 07/29/2015 PIEDAD RILEY MD Ot N39.0 URINARY TRACT INFECTION, SITE NOT SPECIF 07/29/2015 PIEDAD RILEY MD Ot N40.1 ENLARGED PROSTATE WITH LOWER URINARY TRA 07/29/2015 PIEDAD RILEY MD Ot 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 07/30/2015 PIEDAD RILEY MD Ot F17.210 NICOTINE DEPENDENCE, CIGARETTES, UNCOMPL 07/30/2015 PIEDAD RILEY MD Ot N39.0 URINARY TRACT INFECTION, SITE NOT SPECIF 07/30/2015 PIEDAD RILEY MD Ot N40.1 ENLARGED PROSTATE WITH LOWER URINARY TRA 07/30/2015 PIEDAD RILEY MD Ot 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 08/02/2015 PIEDAD RILEY MD Ot F17.210 NICOTINE DEPENDENCE, CIGARETTES, UNCOMPL 08/02/2015 PIEDAD RILEY MD Ot N39.0 URINARY TRACT INFECTION, SITE NOT SPECIF 08/02/2015 PIEDAD RILEY MD Ot N40.1 ENLARGED PROSTATE WITH LOWER URINARY TRA 08/02/2015 PIEDAD RILEY MD Ot 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 09/03/2015 DEBBIE HOPPER DO Ot E78.5 HYPERLIPIDEMIA, UNSPECIFIED 09/03/2015 DEBBIE HOPPER DO Ot I10 ESSENTIAL (PRIMARY) HYPERTENSION 09/03/2015 DEBBIE HOPPER DO Ot I25.110 ATHSCL HEART DISEASE OF [place] COR ART W 09/03/2015 DEBBIE HOPPER DO Ot I44.7 LEFT BUNDLE-BRANCH BLOCK, UNSPECIFIED 09/03/2015 DEBBIE HOPPER DO Ot 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 SYSTOLIC (CONGESTIVE) HEART FAIL 09/03/2015 DEBBIE HOPPER DO Ot I70.0 ATHEROSCLEROSIS OF [place] 09/03/2015 DEBBIE HOPPER DO Ot I82.402 ACUTE EMBOLISM AND THOMBOS UNSP DEEP VEI 09/03/2015 DEBBIE HOPPER DO Ot 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 09/03/2015 DEBBIE HOPPER DO Ot N13.9 OBSTRUCTIVE AND REFLUX UROPATHY, UNSPECI 09/03/2015 DEBBIE HOPPER DO Ot Z79.01 DETENTION (CURRENT) USE OF ANTICOAGULANT 09/03/2015 DEBBIE HOPPER DO Ot Z79.899 OTHER DETENTION (CURRENT) DRUG THERAPY 10/24/2015 MARKIE FREIRE MD Ot N40.1 ENLARGED PROSTATE WITH LOWER URINARY TRA 10/24/2015 MARKIE FREIRE MD Ot 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 03/12/2016 ERWIN DALLAS MD, Ot I10 ESSENTIAL (PRIMARY) HYPERTENSION 03/12/2016 ERWIN DALLAS MD Ot I25.10 ATHSCL HEART DISEASE OF [place] CORONARY 03/12/2016 ERWIN DALLAS MD, Ot J40 BRONCHITIS, NOT SPECIFIED ACUTE OR CH 03/12/2016 ERWIN DALLAS MD, Ot R05 COUGH 03/12/2016 ERWIN DALLAS MD Ot Z79.82 DETENTION (CURRENT) USE OF ASPIRIN 03/12/2016 ERWIN DALLAS MD Ot Z79.899 OTHER ELECTRONIC CALIBRATION TECHNICIAN (CURRENT) DRUG THERAPY 03/12/2016 ERWIN DALLAS MD Ot Z86.718 PERSONAL HISTORY OF OTHER VENOUS THROMBO 03/12/2016 GABRIELLE TROTTER MD Ot 414.00 CORON ATHEROSCLER NOS TYPE VESSEL, NATIV 03/12/2016 GABRIELLE TROTTER MD Ot 425.4 PRIM CARDIOMYOPATHY NEC 03/12/2016 GABRIELLE TROTTER MD Ot 426.3 LEFT BB BLOCK NEC 03/12/2016 GABRIELLE TROTTER MD Ot 453.40 ACUTE VENOUS EMBOLISM THROMBOSIS UNSP 03/15/2016 ERWIN DALLAS MD Ot I10 ESSENTIAL (PRIMARY) HYPERTENSION 03/15/2016 ERWIN DALLAS MD Ot I25.10 ATHSCL HEART DISEASE OF [place] CORONARY 03/15/2016 ERWIN DALLAS MD Ot J40 BRONCHITIS, NOT SPECIFIED ACUTE OR CH 03/15/2016 ERWIN DALLAS MD Ot R05 COUGH 03/15/2016 ERWIN DALLAS MD Ot Z79.82 DETENTION (CURRENT) USE OF ASPIRIN 03/15/2016 ERWIN DALLAS MD Ot Z79.899 OTHER ELECTRONIC CALIBRATION TECHNICIAN (CURRENT) DRUG THERAPY 03/15/2016 ERWIN DALLAS MD Ot Z86.718 PERSONAL HISTORY OF OTHER VENOUS THROMBO 07/09/2016 ARNEL REZA MD Ot E78.5 HYPERLIPIDEMIA, UNSPECIFIED 07/09/2016 ARNEL REZA MD, Ot I10 ESSENTIAL (PRIMARY) HYPERTENSION 07/09/2016 ARNEL REZA MD Ot I25.10 ATHSCL HEART DISEASE OF [place] CORONARY 07/09/2016 ARNEL REZA MD Ot I26.99 OTHER PULMONARY EMBOLISM WITHOUT ACUTE C 07/09/2016 ARNEL REZA MD Ot I44.7 LEFT BUNDLE-BRANCH BLOCK, UNSPECIFIED 07/09/2016 ARNEL REZA MD Ot 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 SYSTOLIC (CONGESTIVE) HEART FAIL 07/09/2016 ARNEL ERZA MD Ot I82.413 ACUTE EMBOLISM AND THROMBOSIS OF [place] 07/09/2016 ARNEL REZA MD Ot I82.433 ACUTE EMBOLISM AND THROMBOSIS OF [place] 07/09/2016 ARNEL REZA MD Ot N39.0 URINARY TRACT INFECTION, SITE NOT SPECIF 07/09/2016 ARNEL REZA MD Ot N40.1 BENIGN PROSTATIC HYPERPLASIA WITH LOWER 07/09/2016 ARNEL REZA MD Ot Z79.01 DETENTION (CURRENT) USE OF ANTICOAGULANT 07/09/2016 ARNEL REZA MD Ot Z91.14 PATIENT'S OTHER NONCOMPLIANCE WITH MEDIC 07/09/2016 ARNEL REZA MD Ot Z91.19 PATIENT'S NONCOMPLIANCE W [facility] Procedures Code Description Performed By Performed On [id number] FLUOROSCOPY OF MULT COR ART USING L OSM 07/08/2016 Results Test Result Range Complete urinalysis with reflex to culture - 10/24/15 02:18 Urine color determination YELLOW NRG Urine clarity determination CLEAR NRG Urine pH measurement by test strip 6 5- 9 Specific gravity of urine by test strip 1.015 1.016-1.022 Urine protein assay by test strip, semi-quantitative 1+ NEGATIVE Urine glucose detection by automated test strip NEGATIVE NEGATIVE Erythrocytes detection in urine sediment by light microscopy 5+ NEGATIVE Urine ketones detection by automated test strip NEGATIVE NEGATIVE Urine nitrite detection by test strip POSITIVE NEGATIVE Urine total bilirubin detection by test strip NEGATIVE NEGATIVE Urine urobilinogen measurement by automated test strip (mass/volume) NORMAL NORMAL Urine leukocyte esterase detection by dipstick 3+ NEGATIVE Automated urine sediment erythrocyte count by microscopy (number/high power field) [HPF] NRG Automated urine sediment leukocyte count by microscopy (number/high power field ) [HPF] NRG Bacteria detection in urine sediment by light microscopy FEW NRG Squamous epithelial cells detection in urine sediment by light microscopy 0-2 NRG Crystals detection in urine sediment by light microscopy NONE NRG Casts detection in urine sediment by light microscopy NONE NRG Mucus detection in urine sediment by light microscopy NEGATIVE NRG Complete urinalysis with reflex to culture YES NRG Bacterial urine culture - 10/24/15 02:18 Bacterial urine culture [id number] NRG COLONY COUNT 10,000/ML - 100,000/ML NRG FTX;REPORTABLE SENSITIVITY REPORTED AT 0953, 8-28-16 [facility] Bacterial susceptibility panel - 10/24/15 02:18 Gentamicin susceptibility test by minimum inhibitory concentration R NRG Trimethoprim/sulfamethoxazole susceptibility test by minimum inhibitoryconcentration <= NR Ampicillin susceptibility test by minimum inhibitory concentration >= NR Tobramycin susceptibility test by minimum inhibitory concentration R NRG Cefazolin susceptibility test by minimum inhibitory concentration >= NR Ceftriaxone susceptibility test by minimum inhibitory concentration <= NR Ampicillin/sulbactam susceptibility test by minimum inhibitory concentration R NRG Piperacillin/tazobactam susceptibility test by minimum inhibitory concentration <= NR Ciprofloxacin susceptibility test by minimum inhibitory concentration <= NR Meropenem susceptibility test by minimum inhibitory concentration <= NR Nitrofurantoin susceptibility test by minimum inhibitory concentration 256 NR Aztreonam susceptibility test by minimum inhibitory concentration <= NR Bacterial susceptibility panel - 10/24/15 02:18 Gentamicin susceptibility test by minimum inhibitory concentration S NR Vancomycin susceptibility test by minimum inhibitory concentration 1 NRG Levofloxacin susceptibility test by minimum inhibitory concentration 1 NR Tetracycline susceptibility test by minimum inhibitory concentration <= NRG Ampicillin susceptibility test by minimum inhibitory concentration <= NRG Nitrofurantoin susceptibility test by minimum inhibitory concentration <= NRG Linezolid susceptibility test by minimum inhibitory concentration 2 NRG Complete blood count (CBC) with automated white blood cell (WBC) differential - 03/12/16 15:51 Blood leukocytes automated count (number/volume) 4.0 10*3/ uL 4.3-11.0 Blood erythrocytes automated count (number/volume) 4.74 10*6 /uL 4.35-5.85 Venous blood hemoglobin measurement (mass/volume) 14.6 g/dL 13.3-17.7 Blood hematocrit (volume fraction) 43 % 40-54 Automated erythrocyte mean corpuscular volume 92 [foz_us] 80-99 Automated erythrocyte mean corpuscular hemoglobin (mass per erythrocyte) 31 pg 25-34 Automated erythrocyte mean corpuscular hemoglobin concentration measurement ( mass/volume) 34 g/dL 32-36 Automated erythrocyte distribution width ratio 13.7 % 10.0-14.5 Automated blood platelet count (count/volume) 145 10*3/uL 130-400 Automated blood platelet mean volume measurement 11.0 [foz_ us] 7.4-10.4 Automated blood neutrophils/100 leukocytes 39 % 42-75 Automated blood lymphocytes/100 leukocytes 33 % 12-44 Blood monocytes/100 leukocytes 27 % 0-12 Automated blood eosinophils/100 leukocytes 0 % 0-10 Automated blood basophils/100 leukocytes 1 % 0-10 Blood neutrophils automated count (number/volume) 1.6 10*3 1.8-7.8 Blood lymphocytes automated count (number/volume) 1.3 10*3 1.0-4.0 Blood monocytes automated count (number/volume) 1.1 10*3 0.0-1.0 Automated eosinophil count 0.0 10*3/uL 0.0-0.3 Automated blood basophil count (count/volume) 0.0 10*3/uL 0.0-0.1 PT panel in platelet poor plasma by coagulation assay - 03/12/16 15:51 Prothrombin time (PT) in platelet poor plasma by coagulation assay 15.0 s 12.2-14.7 INR in platelet poor plasma or blood by coagulation assay 1.2 0.8-1.4 Activated partial thromboplastin time (aPTT) in platelet poor plasma bycoagulation assay - 03/12/16 15:51 Activated partial thromboplastin time (aPTT) in platelet poor plasma bycoagulation assay 26 s 24-35 Blood manual differential performed detection - 03/12/16 15:51 Blood monocytes/100 leukocytes 4 % NR Manual blood segmented neutrophils/100 leukocytes 43 % NRG Blood band neutrophils/100 leukocytes 1 % NR Manual blood lymphocytes/100 leukocytes 49 % NRG Manual eosinophils/100 leukocytes in nose 0 % NRG Manual blood basophils/100 leukocytes 0 % NRG Blood lymphocytes variant/100 leukocytes 3 % NRG Blood erythrocyte morphology finding identification NORMAL [facility] Blood platelet clump detection by light microscopy [facility] Comprehensive metabolic panel - 03/12/16 15:51 Serum or plasma sodium measurement (moles/volume) 138 mmol/ L 135-145 Serum or plasma potassium measurement (moles/volume) 4.7 mmol/L 3.6-5.0 Serum or plasma chloride measurement (moles/volume) 108 mmol /L 98-107 Carbon dioxide 21 mmol/L 21-32 Serum or plasma anion gap determination (moles/volume) 9 mmol/L 5-14 Serum or plasma urea nitrogen measurement (mass/volume) 18 mg/dL 7-18 Serum or plasma creatinine measurement (mass/volume) 1.23 mg /dL 0.60-1.30 Serum or plasma urea nitrogen/creatinine mass ratio 15 NRG Serum or plasma creatinine measurement with calculation of estimated glomerular filtration rate 58 NRG Serum or plasma glucose measurement (mass/volume) 82 mg/dL 70-105 Serum or plasma calcium measurement (mass/volume) 9.0 mg/dL 8.5-10.1 Serum or plasma total bilirubin measurement (mass/volume) 0.6 mg/dL 0.1-1.0 Serum or plasma alkaline phosphatase measurement (enzymatic activity/volume) 94 U/L 40-136 Serum or plasma aspartate aminotransferase measurement (enzymatic activity/ volume) 25 U/L 5-34 Serum or plasma alanine aminotransferase measurement (enzymatic activity/volume ) 24 U/L 0-55 Serum or plasma protein measurement (mass/volume) 6.9 g/dL 6.4-8.2 Serum or plasma albumin measurement (mass/volume) 4.1 g/dL 3.2-4.5 Magnesium - 03/12/16 15:51 Magnesium 2.2 mg/dL 1.8-2.4 Serum or plasma troponin i.cardiac measurement (mass/volume) - 03/12/16 15:51 Serum or plasma troponin i.cardiac measurement (mass/volume) < ng/mL <0.30 Myoglobin, serum - 03/12/16 15:51 Myoglobin, serum 69.8 ng/mL 10.0-92.0 Complete urinalysis with reflex to culture - 03/12/16 17:14 Urine color determination BROWN NRG Urine clarity determination VERY CLOUDY NRG Urine pH measurement by test strip 6 5- 9 Specific gravity of urine by test strip 1.020 1.016-1.022 Urine protein assay by test strip, semi-quantitative 3+ NEGATIVE Urine glucose detection by automated test strip NEGATIVE NEGATIVE Erythrocytes detection in urine sediment by light microscopy 5+ NEGATIVE Urine ketones detection by automated test strip NEGATIVE NEGATIVE Urine nitrite detection by test strip POSITIVE NEGATIVE Urine total bilirubin detection by test strip NEGATIVE NEGATIVE Urine urobilinogen measurement by automated test strip (mass/volume) 1 mg/dL NORMAL Urine leukocyte esterase detection by dipstick 3+ NEGATIVE Automated urine sediment erythrocyte count by microscopy (number/high power field) TNTC NRG Automated urine sediment leukocyte count by microscopy (number/high power field ) TNTC NRG Bacteria detection in urine sediment by light microscopy MODERATE NRG Crystals detection in urine sediment by light microscopy NONE NRG Casts detection in urine sediment by light microscopy NONE NRG Mucus detection in urine sediment by light microscopy NEGATIVE NRG Complete urinalysis with reflex to culture YES NRG Bacterial urine culture - 03/12/16 17:14 Bacterial urine culture [id number] NRG COLONY COUNT 10,000/ML - 100,000/ML NRG FTX;REPORTABLE SENSITIVITIES REPORTED 03/15 08:20 NRG Bacterial susceptibility panel - 03/12/16 17:14 Gentamicin susceptibility test by minimum inhibitory concentration 2 NRG Trimethoprim/sulfamethoxazole susceptibility test by minimum inhibitoryconcentration <= NRG Tobramycin susceptibility test by minimum inhibitory concentration 2 NRG Cefazolin susceptibility test by minimum inhibitory concentration >= NRG Ceftriaxone susceptibility test by minimum inhibitory concentration <= NRG Piperacillin/tazobactam susceptibility test by minimum inhibitory concentration <= NRG Ciprofloxacin susceptibility test by minimum inhibitory concentration <= NRG Meropenem susceptibility test by minimum inhibitory concentration <= NRG Nitrofurantoin susceptibility test by minimum inhibitory concentration 128 NRG Aztreonam susceptibility test by minimum inhibitory concentration <= NRG Bacterial susceptibility panel - 03/12/16 17:14 Gentamicin susceptibility test by minimum inhibitory concentration S NRG Vancomycin susceptibility test by minimum inhibitory concentration 1 NRG Levofloxacin susceptibility test by minimum inhibitory concentration 1 NRG Tetracycline susceptibility test by minimum inhibitory concentration <= NRG Ampicillin susceptibility test by minimum inhibitory concentration <= NRG Nitrofurantoin susceptibility test by minimum inhibitory concentration <= NRG Linezolid susceptibility test by minimum inhibitory concentration 2 NRG Complete blood count (CBC) with automated white blood cell (WBC) differential - 07/07/16 16:30 Blood leukocytes automated count (number/volume) 8.3 10*3/ uL 4.3-11.0 Blood erythrocytes automated count (number/volume) 4.44 10*6 /uL 4.35-5.85 Venous blood hemoglobin measurement (mass/volume) 13.6 g/dL 13.3-17.7 Blood hematocrit (volume fraction) 40 % 40-54 Automated erythrocyte mean corpuscular volume 91 [foz_us] 80-99 Automated erythrocyte mean corpuscular hemoglobin (mass per erythrocyte) 31 pg 25-34 Automated erythrocyte mean corpuscular hemoglobin concentration measurement ( mass/volume) 34 g/dL 32-36 Automated erythrocyte distribution width ratio 13.4 % 10.0-14.5 Automated blood platelet count (count/volume) 172 10*3/uL 130-400 Automated blood platelet mean volume measurement 10.7 [foz_ us] 7.4-10.4 Automated blood neutrophils/100 leukocytes 61 % 42-75 Automated blood lymphocytes/100 leukocytes 25 % 12-44 Blood monocytes/100 leukocytes 12 % 0-12 Automated blood eosinophils/100 leukocytes 2 % 0-10 Automated blood basophils/100 leukocytes 1 % 0-10 Blood neutrophils automated count (number/volume) 5.0 10*3 1.8-7.8 Blood lymphocytes automated count (number/volume) 2.1 10*3 1.0-4.0 Blood monocytes automated count (number/volume) 1.0 10*3 0.0-1.0 Automated eosinophil count 0.1 10*3/uL 0.0-0.3 Automated blood basophil count (count/volume) 0.1 10*3/uL 0.0-0.1 PT panel in platelet poor plasma by coagulation assay - 07/07/16 16:30 Prothrombin time (PT) in platelet poor plasma by coagulation assay 14.8 s 12.2-14.7 INR in platelet poor plasma or blood by coagulation assay 1.2 0.8-1.4 Activated partial thromboplastin time (aPTT) in platelet poor plasma bycoagulation assay - 07/07/16 16:30 Activated partial thromboplastin time (aPTT) in platelet poor plasma bycoagulation assay 28 s 24-35 Comprehensive metabolic panel - 07/07/16 16:30 Serum or plasma sodium measurement (moles/volume) 141 mmol/ L 135-145 Serum or plasma potassium measurement (moles/volume) 4.6 mmol/L 3.6-5.0 Serum or plasma chloride measurement (moles/volume) 110 mmol /L 98-107 Carbon dioxide 21 mmol/L 21-32 Serum or plasma anion gap determination (moles/volume) 10 mmol/L 5-14 Serum or plasma urea nitrogen measurement (mass/volume) 24 mg/dL 7-18 Serum or plasma creatinine measurement (mass/volume) 1.49 mg /dL 0.60-1.30 Serum or plasma urea nitrogen/creatinine mass ratio 16 NRG Serum or plasma creatinine measurement with calculation of estimated glomerular filtration rate 46 NRG Serum or plasma glucose measurement (mass/volume) 89 mg/dL 70-105 Serum or plasma calcium measurement (mass/volume) 9.2 mg/dL 8.5-10.1 Serum or plasma total bilirubin measurement (mass/volume) 0.6 mg/dL 0.1-1.0 Serum or plasma alkaline phosphatase measurement (enzymatic activity/volume) 98 U/L 40-136 Serum or plasma aspartate aminotransferase measurement (enzymatic activity/ volume) 16 U/L 5-34 Serum or plasma alanine aminotransferase measurement (enzymatic activity/volume ) 11 U/L 0-55 Serum or plasma protein measurement (mass/volume) 6.7 g/dL 6.4-8.2 Serum or plasma albumin measurement (mass/volume) 4.0 g/dL 3.2-4.5 Magnesium - 07/07/16 16:30 Magnesium 2.3 mg/dL 1.8-2.4 Serum or plasma creatine kinase measurement (enzymatic activity/volume) - 07/07 16:30 Serum or plasma creatine kinase measurement (enzymatic activity/volume) 156 U/L 30-200 Serum or plasma creatine kinase MB measurement (enzymatic activity/volume) - 16:30 Serum or plasma creatine kinase MB measurement (enzymatic activity/volume) 4.4 ng/mL <6.6 Serum or plasma troponin i.cardiac measurement (mass/volume) - 07/07/16 16:30 Serum or plasma troponin i.cardiac measurement (mass/volume) < ng/mL <0.30 Serum or plasma lithium measurement (moles/volume) - 07/07/16 16:30 BNP level 347.8 pg/mL <100.0 Serum or plasma amylase measurement (enzymatic activity/volume) - 07/07/16 16: 30 Serum or plasma amylase measurement (enzymatic activity/volume) 111 U/L 25-125 Lipase - 07/07/16 16:30 Lipase 47 U/L 8-78 Serum or plasma thyrotropin measurement by detection limit <=0.05 miu/l (units/ volume) - 07/07/16 16:30 Serum or plasma thyrotropin measurement by detection limit <=0.05 miu/l (units/ volume) 1.40 u[iU]/mL 0.35-4.94 Serum or plasma troponin i.cardiac measurement (mass/volume) - 07/07/16 22:50 Serum or plasma troponin i.cardiac measurement (mass/volume) < ng/mL <0.30 Myoglobin, serum - 07/07/16 22:50 Myoglobin, serum 59.0 ng/mL 10.0-92.0 Complete urinalysis with reflex to culture - 07/07/16 23:05 Urine color determination YELLOW NRG Urine clarity determination SLIGHTLY CLOUDY NRG Urine pH measurement by test strip 6 5- 9 Specific gravity of urine by test strip 1.015 1.016-1.022 Urine protein assay by test strip, semi-quantitative 2+ NEGATIVE Urine glucose detection by automated test strip NEGATIVE NEGATIVE Erythrocytes detection in urine sediment by light microscopy 4+ NEGATIVE Urine ketones detection by automated test strip NEGATIVE NEGATIVE Urine nitrite detection by test strip POSITIVE NEGATIVE Urine total bilirubin detection by test strip NEGATIVE NEGATIVE Urine urobilinogen measurement by automated test strip (mass/volume) NORMAL NORMAL Urine leukocyte esterase detection by dipstick 3+ NEGATIVE Automated urine sediment erythrocyte count by microscopy (number/high power field) [HPF] NRG Automated urine sediment leukocyte count by microscopy (number/high power field ) > [HPF] NRG Bacteria detection in urine sediment by light microscopy FEW NRG Crystals detection in urine sediment by light microscopy NONE NRG Casts detection in urine sediment by light microscopy NONE NRG Mucus detection in urine sediment by light microscopy NEGATIVE NRG Complete urinalysis with reflex to culture YES NRG Bacterial urine culture - 07/07/16 23:05 Bacterial urine culture [id number] NRG COLONY COUNT 10,000/ML - 100,000/ML NRG FTX;REPORT[place] SENSITIVITIES [place]ED [place] [address], 07-10-16 NR URINE CULTURE RESULTS PLUS NR Bacterial susceptibility panel - 07/07/16 23:05 Gentamicin susceptibility test by minimum inhibitory concentration <= NRG Trimethoprim/sulfamethoxazole susceptibility test by minimum inhibitoryconcentration <= NRG Ampicillin susceptibility test by minimum inhibitory concentration R NRG Tobramycin susceptibility test by minimum inhibitory concentration <= NRG Cefazolin susceptibility test by minimum inhibitory concentration >= NRG Ceftriaxone susceptibility test by minimum inhibitory concentration <= NRG Ampicillin/sulbactam susceptibility test by minimum inhibitory concentration <= NRG Piperacillin/tazobactam susceptibility test by minimum inhibitory concentration <= NRG Ciprofloxacin susceptibility test by minimum inhibitory concentration 0.5 NRG Meropenem susceptibility test by minimum inhibitory concentration <= NRG Nitrofurantoin susceptibility test by minimum inhibitory concentration R NR Aztreonam susceptibility test by minimum inhibitory concentration <= NR Bacterial susceptibility panel - 07/07/16 23:05 Gentamicin susceptibility test by minimum inhibitory concentration <= NRG Trimethoprim/sulfamethoxazole susceptibility test by minimum inhibitoryconcentration <= NRG Tobramycin susceptibility test by minimum inhibitory concentration <= NRG Cefazolin susceptibility test by minimum inhibitory concentration >= NRG Ceftriaxone susceptibility test by minimum inhibitory concentration <= NRG Piperacillin/tazobactam susceptibility test by minimum inhibitory concentration <= NRG Ciprofloxacin susceptibility test by minimum inhibitory concentration <= NRG Meropenem susceptibility test by minimum inhibitory concentration <= NRG Nitrofurantoin susceptibility test by minimum inhibitory concentration 256 NR Aztreonam susceptibility test by minimum inhibitory concentration <= NR Bacterial susceptibility panel - 07/07/16 23:05 Gentamicin susceptibility test by minimum inhibitory concentration S NR Vancomycin susceptibility test by minimum inhibitory concentration 1 NRG Levofloxacin susceptibility test by minimum inhibitory concentration 2 NR Tetracycline susceptibility test by minimum inhibitory concentration <= NRG Ampicillin susceptibility test by minimum inhibitory concentration <= NRG Ciprofloxacin susceptibility test by minimum inhibitory concentration S NRG Nitrofurantoin susceptibility test by minimum inhibitory concentration <= NRG Linezolid susceptibility test by minimum inhibitory concentration 2 NRG Complete blood count (CBC) with automated white blood cell (WBC) differential - 07/08/16 03:40 Blood leukocytes automated count (number/volume) 6.8 10*3/ uL 4.3-11.0 Blood erythrocytes automated count (number/volume) 4.31 10*6 /uL 4.35-5.85 Venous blood hemoglobin measurement (mass/volume) 13.1 g/dL 13.3-17.7 Blood hematocrit (volume fraction) 39 % 40-54 Automated erythrocyte mean corpuscular volume 91 [foz_us] 80-99 Automated erythrocyte mean corpuscular hemoglobin (mass per erythrocyte) 30 pg 25-34 Automated erythrocyte mean corpuscular hemoglobin concentration measurement ( mass/volume) 33 g/dL 32-36 Automated erythrocyte distribution width ratio 13.4 % 10.0-14.5 Automated blood platelet count (count/volume) 164 10*3/uL 130-400 Automated blood platelet mean volume measurement 10.6 [foz_ us] 7.4-10.4 Automated blood neutrophils/100 leukocytes 57 % 42-75 Automated blood lymphocytes/100 leukocytes 29 % 12-44 Blood monocytes/100 leukocytes 11 % 0-12 Automated blood eosinophils/100 leukocytes 3 % 0-10 Automated blood basophils/100 leukocytes 1 % 0-10 Blood neutrophils automated count (number/volume) 3.9 10*3 1.8-7.8 Blood lymphocytes automated count (number/volume) 1.9 10*3 1.0-4.0 Blood monocytes automated count (number/volume) 0.7 10*3 0.0-1.0 Automated eosinophil count 0.2 10*3/uL 0.0-0.3 Automated blood basophil count (count/volume) 0.0 10*3/uL 0.0-0.1 Comprehensive metabolic panel - 07/08/16 03:40 Serum or plasma sodium measurement (moles/volume) 136 mmol/ L 135-145 Serum or plasma potassium measurement (moles/volume) 4.3 mmol/L 3.6-5.0 Serum or plasma chloride measurement (moles/volume) 109 mmol /L 98-107 Carbon dioxide 18 mmol/L 21-32 Serum or plasma anion gap determination (moles/volume) 9 mmol/L 5-14 Serum or plasma urea nitrogen measurement (mass/volume) 25 mg/dL 7-18 Serum or plasma creatinine measurement (mass/volume) 1.14 mg /dL 0.60-1.30 Serum or plasma urea nitrogen/creatinine mass ratio 22 NRG Serum or plasma creatinine measurement with calculation of estimated glomerular filtration rate > NRG Serum or plasma glucose measurement (mass/volume) 85 mg/dL 70-105 Serum or plasma calcium measurement (mass/volume) 8.9 mg/dL 8.5-10.1 Serum or plasma total bilirubin measurement (mass/volume) 0.6 mg/dL 0.1-1.0 Serum or plasma alkaline phosphatase measurement (enzymatic activity/volume) 88 U/L 40-136 Serum or plasma aspartate aminotransferase measurement (enzymatic activity/ volume) 15 U/L 5-34 Serum or plasma alanine aminotransferase measurement (enzymatic activity/volume ) 10 U/L 0-55 Serum or plasma protein measurement (mass/volume) 6.2 g/dL 6.4-8.2 Serum or plasma albumin measurement (mass/volume) 3.7 g/dL 3.2-4.5 Lipid 1996 panel - 07/08/16 03:40 Serum or plasma triglyceride measurement (mass/volume) 102 mg/dL <150 Serum or plasma cholesterol measurement (mass/volume) 185 mg /dL < 200 Serum or plasma cholesterol in HDL measurement (mass/volume) 53 mg/dL 40-60 Cholesterol in LDL [mass/volume] in serum or plasma by direct assay 119 mg/dL 1-129 Serum or plasma cholesterol in VLDL measurement (mass/volume) 20 mg/dL 5-40 PT panel in platelet poor plasma by coagulation assay - 07/08/16 10:30 Prothrombin time (PT) in platelet poor plasma by coagulation assay 14.2 s 12.2-14.7 INR in platelet poor plasma or blood by coagulation assay 1.1 0.8-1.4 Activated partial thromboplastin time (aPTT) in platelet poor plasma bycoagulation assay - 07/08/16 10:30 Activated partial thromboplastin time (aPTT) in platelet poor plasma bycoagulation assay 29 s 24-35 Activated partial thromboplastin time (aPTT) in platelet poor plasma bycoagulation assay - 07/08/16 14:06 Activated partial thromboplastin time (aPTT) in platelet poor plasma bycoagulation assay 133 s 24-35 Activated partial thromboplastin time (aPTT) in platelet poor plasma bycoagulation assay - 07/08/16 16:36 Activated partial thromboplastin time (aPTT) in platelet poor plasma bycoagulation assay 98 s 24-35 Automated blood platelet count (count/volume) - 07/09/16 04:20 Automated blood platelet count (count/volume) 182 10*3/uL 130-400 Activated partial thromboplastin time (aPTT) in platelet poor plasma bycoagulation assay - 07/09/16 07:09 Activated partial thromboplastin time (aPTT) in platelet poor plasma bycoagulation assay 51 s 24-35 Encounters ACCT No. Visit Date/Time Discharge Status Pt. Type Provider Facility Loc./Unit Complaint [id number] 07/08/2016 11:26:00 2016 13:40:00 DIS Outpatient LIBIA CAMPOS, ARNEL Jenkins [facility] CSD CHEST PAIN; BRODYCARDIA WITH BIGEMINY [id number] 03/12/2016 15:47:00 2016 18:02:00 DIS Emergency CELENA CAMPOS, ERWIN Rodríguez [facility] ER CP/SOA [id number] 10/24/2015 02:02:00 2015 02:49:00 DIS Emergency MARKIE FREIRE MD [facility] ER CATH STOPPED UP [id number] 07/27/2015 15:24:00 2015 19:05:00 DIS Emergency ROSEMARY CAMPOS, PIEDAD Waller [facility] ER CATHETER BLOCKED [id number] 06/01/2015 20:14:00 2015 11:05:00 DIS Outpatient DEBBIE HOPPER DO [facility] CATH CHEST PAIN;LEG EDEMA;DYSPNEA;HX OF DVT P E [id number] 12/18/2014 20:04:00 2014 21:34:00 DIS Emergency PIEDAD RILEY MD [facility] ER UNABLE TO URINATE [id number] 09/18/2014 04:05:00 2014 14:55:00 DIS Inpatient ARNEL REZA MD [facility] CSD SYNCOPAL EPISODE;CHRONIC PULMONARY EMBOLISM [id number] 04/10/2014 11:56:00 2014 23:59:59 CLS Outpatient GABRIELLE TROTTER MD [facility] CARD LBB,DVT [id number] 03/15/2014 14:02:00 2014 15:19:00 DIS Inpatient ARNEL REZA MD [facility] CSD BILATERAL PULMONARY EMBOLIS [id number] 02/23/2014 12:22:00 2013 13:19:00 DIS Emergency PHANI VILLA APRN [facility] ER CATHETER CAME OUT [id number] 12/26/2013 22:05:00 2013 23:56:00 DIS Emergency SHAYY REYES DO [facility] ER CATH FELL OUT [id number] 09/11/2013 08:12:00 2013 10:38:00 DIS Emergency ROSEMARY CAMPOS, PIEDAD Waller [facility] ER CATHETER PLUGGED [id number] 06/15/2013 15:52:00 2013 16:45:00 DIS Emergency [id number] 03/03/2013 08:10:00 2013 11:02:00 DIS Inpatient JAYJAY CARBAJAL MD [facility] SURGICAL [id number] 02/27/2013 21:03:00 2012 22:30:00 DIS Emergency [id number] 02/08/2013 15:26:00 2012 17:24:00 DIS Inpatient [id number] 05/05/2014 20:44:00 Document Registration
[2016-09-08] MEDS ORDERED: ONDANSETRON 4 MG/2 ML (SDV) Z0FRAN IVP ONE (17:45)
[2016-09-08] MEDS ORDERED: ASPIRIN 81 MG CHEW (CHILDREN'S ASA) PO ONE (17:45)
[2016-09-08 17:49] LABS: BASOPHILS # (AUTO) 0.1 10^3/uL (0.0-0.1); BASOPHILS % (AUTO) 1 % (0-10); EOSINOPHILS # (AUTO) 1.1 10^3/uL (0.0-0.3); EOSINOPHILS % (AUTO) 17 % (0-10); LYMPHOCYTES # (AUTO) 1.5 X 10^3 (1.0-4.0); LYMPHOCYTES % (AUTO) 23 % (12-44); MEAN CORPUSCULAR HEMOGLOBIN 28 PG (25-34); MEAN CORPUSCULAR HGB CONC 31 G/DL (32-36); MEAN CORPUSCULAR VOLUME 91 FL (80-99); MEAN PLATELET VOLUME 9.4 FL (7.4-10.4); MONOCYTES # (AUTO) 0.7 X 10^3 (0.0-1.0); MONOCYTES % (AUTO) 10 % (0-12); NEUTROPHILS # (AUTO) 3.3 X 10^3 (1.8-7.8); NEUTROPHILS % (AUTO) 50 % (42-75); PLATELET COUNT 328 10^3/uL (130-400); RED BLOOD COUNT 3.47 10^6/uL (4.35-5.85); RED CELL DISTRIBUTION WIDTH 14.3 % (10.0-14.5); WHITE BLOOD COUNT 6.7 10^3/uL (4.3-11.0)
--- NOTE | 2016-09-08 17:52 | ED Cardiac General ---
History of Present Illness General Chief Complaint: Cardiac/General Problems Stated Complaint: SOB,CP Nursing Triage Note: pt reports a couple lightheadedness episodes this am. pt reports about an hour ago he became nauseated and soa. Source: patient, EMS Exam Limitations: no limitations History of Present Illness Time seen by provider: 17:35 Initial Comments Patient presents by EMS with chief complaint of shortness of breath. He is 3 weeks status post CABG with veins harvested from the right leg. He feels that his edema is been getting better he is not having any chest pain. However he just got out of rehabilitation yesterday he went home and his electricity was shut off. He did have a fan running on him but he feels like he was out in the heat and just got too dehydrated and is very weak. He is having mild nausea with no vomiting. He is not having any sweats now for the past hour and a half. He is had no chills or fever. No rash and his wounds are all healing quite well. He sees Dr. Mccall locally and was seen by Dr. Fraser in [place] for his CABG. Patient is a Solo catheter that he had drains into a leg bag at night. 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 He is having some tenderness in his bladder. Allergies and Home Medications Allergies Coded Allergies: metoprolol (Unverified Allergy, Unknown, 09/18/14) "sunburn" rivaroxaban (Unverified Allergy, Unknown, 12/18/14) VOMITING/DIARRHEA Home Medications Apixaban 5 Mg Tablet, 10 MG PO BID, #14 2 TABLETS TWICE DAILY X 7 DAYS Prescribed by: DEBBIE HOPPER on 07/09/16 1127 Apixaban 5 Mg Tablet, 5 MG PO BID, #60 START AFTER ELIQUIS 10MG BID X 7 DAYS Prescribed by: SHAHEEN LARKIN on 07/09/16 1129 Aspirin 325 Mg Tablet., 325 MG PO DAILY for 30 Days Prescribed by: DEBBIE HOPPER on 07/09/16 1127 Ciprofloxacin HCl 500 Mg Tablet, 500 MG PO BID, #14 Prescribed by: DEBBIE HOPPER on 07/09/16 1127 Lovastatin 10 Mg Tablet, 10 MG PO DAILY, #30 Prescribed by: DEBBIE HOPPER on 07/09/16 1127 Review of Systems Constitutional: No chills, No diaphoresis, No fever, malaise, weakness Respiratory: Denies Cough, Denies Orthopnea, Shortness of Air, SOA With Exertion, SOA at Rest Cardiovascular: Denies Chest Pain, Edema, Denies Irregular Heart Rate (baseline , improved), Denies Lightheadedness Gastrointestinal: Denies Constipated, Denies Diarrhea, Nausea, Denies Vomiting Genitourinary: Denies Burning, Denies Discharge Musculoskeletal: No back pain, No joint pain Skin: No pruritus, No rash Psychiatric/Neurological: Denies Headache, Denies Numbness Past Esoswqt-Kdwzah-Hmsnlw Hx Patient Social History Alcohol Use: Past History Recreational Drug Use: Yes (etoh) Smoking Status: Never a Smoker 2nd Hand Smoke Exposure: No Recent Foreign Travel: No Contact w/Someone Who Travel: No Recent Infectious Disease Expo: No Recent Hopitalizations: No Immunizations Up To Date Tetanus Booster (TDap): Unknown Date of Pneumonia Vaccine: Feb 11, 2013 Date of Influenza Vaccine: Apr 18, 2014 Seasonal Allergies Seasonal Allergies: No Surgeries HX Surgeries: Yes (BILATERAL CATARACTS) Surgeries: CABG, Eye Surgery, Pacemaker, Vascular Surgery Respiratory Hx Respiratory Disorders: Yes (PE 03/15/14) Respiratory Disorders: Pulmonary Embolism Cardiovascular Hx Cardiac Disorders: Yes (snypocal episode 09/17/14; DVT WITH P.E. 2015--ON ELIQUIS) Cardiac Disorders: Coronary Artery Disease, Deep Vein Thrombosis, Heart Murmur , High Cholesterol, Hypertension Neurological Hx Neurological Disorders: No Reproductive System Hx Reproductive Disorders: No Genitourinary Hx Genitourinary Disorders: Yes (obstructive uropathy with chronic solo cathater) Genitourinary Disorders: Benign Prostatic Hyperpl, Prostate Problems, Renal Failure, Neurogenic Bladder, UTI-Chronic Gastrointestinal Hx Gastrointestinal Disorders: No Musculoskeletal Hx Musculoskeletal Disorders: Yes (ANKLE FX) Musculoskeletal Disorders: Fractures Endocrine Hx Endocrine Disorders: No HEENT HX ENT Disorders: Yes (bilateral cataracts removed) HEENT Disorders: Cataract Loss of Vision: Denies Hearing Impairment: Denies Cancer Hx Cancer: No Psychosocial Hx Psychiatric Problems: No Integumentary HX Skin/Integumentary Disorder: No Blood Transfusions Hx Blood Disorders: No Family Medical History Family Medial History: Cancer (LINING OF ABD CAVITY, AT AGE 80) 03 MOTHER Chest pain (FATHER OF MD AT AGE 83) 03 FATHER Congestive heart failure 03 FATHER Family history: Arthritis 03 MOTHER Family history: Cardiovascular disease 03 FATHER Heart disease 03 FATHER Hypercholesterolemia 03 FATHER 03 MOTHER Myocardial infarction 03 FATHER Prostate cancer (DIAGNOSED AT 72 OR 73 PER PT) 03 FATHER Stroke 09 SISTER Visual impairment (SISTER WEARS GLASSES ) 09 SISTER No Family History of: Abdominal aortic aneurysm [place]'s disease Alcoholism Aphasia Cancer of colon Cataract Congenital heart disease Cystic fibrosis Dementia Dysphagia Family history: Allergy Family history: Alzheimer's disease Family history: Asthma Family history: Breast disease Family history: Coronary thrombosis Family history: Diabetes mellitus Family history: Gastrointestinal disease Family history: Glaucoma Family history: Hypertension Family history: Osteoporosis Family history: Thyroid disorder Headache Hearing loss Hereditary disease History of - anemia History of - disorder History of - respiratory disease History of drug abuse Human immunodeficiency virus (HIV) seropositivity Infertile Kidney disease Malignant neoplasm of lung Parkinson's disease Psychotic disorder Seizure disorder Tuberculosis Physical Exam Vital Signs Vital Sign - Last 12Hours 09/08/16 17:39 Temp 98.9 Pulse 82 Resp 16 B/P (MAP) 121/87 Pulse Ox 99 Capillary Refill : Less Than 3 Seconds General Appearance: WD/WN, Mild Distress HEENT: PERRL/EOMI, Pharynx Normal Neck: Full Range of Motion, Supple Respiratory: Chest Non Tender, Lungs Clear, Normal Breath Sounds, No Accessory Muscle Use Cardiovascular: Regular Rate, Rhythm, No Edema, Normal Peripheral Pulses Gastrointestinal: Normal Bowel Sounds, Non Tender, Soft Extremity: Normal Capillary Refill, Non Tender, No Calf Tenderness, Pedal Edema (1+ Edema bilateral), Other (wounds from vein grafts are healing well. Dry and intact.) Neurologic/Psychiatric: Alert, Oriented x3, No Motor/Sensory Deficits Skin: Normal Color, Warm/Dry Lymphatic: No Adenopathy Progress/Results/Core Measures Results/Orders Lab Results Laboratory Tests Test 09/08/16 17:31 09/08/16 18:10 09/08/16 18:57 Range/Units White Blood Count 6.7 4.3-11.0 10^3/uL Red Blood Count 3.47 L 4.35-5.85 10^6/uL Hemoglobin 9.8 L 13.3-17.7 G/DL Hematocrit 32 L 40-54 % Mean Corpuscular Volume 91 80-99 FL Mean Corpuscular Hemoglobin 28 25-34 PG Mean Corpuscular Hemoglobin Concent 31 L 32-36 G/DL Red Cell Distribution Width 14.3 10.0-14.5 % Platelet Count 328 130-400 10^3/uL Mean Platelet Volume 9.4 7.4-10.4 FL Neutrophils (%) (Auto) 50 42-75 % Lymphocytes (%) (Auto) 23 12-44 % Monocytes (%) (Auto) 10 0-12 % Eosinophils (%) (Auto) 17 H 0-10 % Basophils (%) (Auto) 1 0-10 % Neutrophils # (Auto) 3.3 1.8-7.8 X 10^3 Lymphocytes # (Auto) 1.5 1.0-4.0 X 10^3 Monocytes # (Auto) 0.7 0.0-1.0 X 10^3 Eosinophils # (Auto) 1.1 H 0.0-0.3 10^3/uL Basophils # (Auto) 0.1 0.0-0.1 10^3/uL Neutrophils % (Manual) 48 % Lymphocytes % (Manual) 27 % Monocytes % (Manual) 2 % Eosinophils % (Manual) 19 % Basophils % (Manual) 0 % Band Neutrophils 4 % Blood Morphology Comment NORMAL Prothrombin Time 16.4 H 12.2-14.7 SEC INR Comment 1.4 0.8-1.4 Activated Partial Thromboplast Time 32 24-35 SEC B-Type Natriuretic Peptide 233.1 H <100.0 PG/ML Sodium Level 137 135-145 MMOL/L Potassium Level 4.5 3.6-5.0 MMOL/L Chloride Level 105 98-107 MMOL/L Carbon Dioxide Level 25 21-32 MMOL/L Anion Gap 7 5-14 MMOL/L Blood Urea Nitrogen 22 H 7-18 MG/DL Creatinine 1.69 H 0.60-1.30 MG/DL Estimat Glomerular Filtration Rate 40 BUN/Creatinine Ratio 13 Glucose Level 84 70-105 MG/DL Calcium Level 8.3 L 8.5-10.1 MG/DL Magnesium Level 1.8 1.8-2.4 MG/DL Total Bilirubin 0.6 0.1-1.0 MG/DL Aspartate Amino Transf (AST/SGOT) 14 5-34 U/L Alanine Aminotransferase (ALT/SGPT) 13 0-55 U/L Alkaline Phosphatase 117 40-136 U/L Myoglobin 50.5 10.0-92.0 NG/ML Troponin I 0.43 *H <0.30 NG/ML Total Protein 6.0 L 6.4-8.2 GM/DL Albumin 3.2 3.2-4.5 GM/DL My Orders Orders - ODILON FITZGERALD Cbc With Automated Diff (09/08/16 17:40) Magnesium (09/08/16 17:40) Chest 1 View, Ap/Pa Only (09/08/16 17:40) Ekg Tracing (09/08/16 17:40) Cardiac Profile 1 (09/08/16 17:40) Comprehensive Metabolic Panel (09/08/16 17:40) Myoglobin Serum (09/08/16 17:40) Protime With Inr (09/08/16:40) Partial Thromboplastin Time (09/08/16 17:40) O2 (09/08/16 17:40) Monitor-Rhythm Ecg Trace Only (09/08/16 17:40) Lipid Panel (09/09/16 06:00) Aspirin Chewable Tablet (Baby Aspirin Ch (09/08/16 17:45) Saline Lock/Iv-Start (09/08/16 17:40) BNP (09/08/16 17:40) Ondansetron Injection (Zofran Injectio (09/08/16 17:45) Manual Differential (09/08/16 17:31) Saline Lock/Iv-Start (09/08/16 18:35) Ns Iv 500 Ml (Sodium Chloride 0.9%) (09/08/16 18:35) Ua Culture If Indicated (09/08/16 18:52) Medications Given in ED Current Medications Medications Dose Ordered Sig/Sukhjinder Route Start Time Stop Time Status Last Admin Dose Admin Aspirin 324 mg ONCE ONCE PO 09/08/16 17:45 09/08/16 17:46 DC 09/08/16 17:51 324 MG Ondansetron HCl 4 mg ONCE ONCE IVP 09/08/16 17:45 09/08/16 17:46 DC 09/08/16 17:52 4 MG Vital Signs/I&O Vital Sign - Last 12Hours 09/08/16 17:39 Temp 98.9 Pulse 82 Resp 16 B/P (MAP) 121/87 Pulse Ox 99 Blood Pressure Mean: 98 Progress Note #1: Time: 17:51 Progress Note Patient appears to have been suffering from possible heat exhaustion status post CABG 3 weeks ago. We'll workup his heart and he will probably need an observation stay given his recent coronary status. Sending him home without electricity is not a good idea. Progress Note #2: Time: 18:55 Progress Note Clinically the patient oral mucosa appears dry and his history indicates he is not sweating in his edema is down. However he does have edema and his BNP is elevated to 230. We will give him the liter of fluid and stop there. He is mildly anemic but this is probably due to his recent CABG. His troponin was called back critical at 0.43 this is likely related to his recent surgery and will need to be trended overnight. His creatinine is elevated at 1.69 however his baseline over the past year is 1-1.5. ECG Initial ECG Impression Date: Sep 08, 2016 Initial ECG Impression Time: 17:39 Initial ECG Rate: 80 Initial ECG Intervals: QRS (prolonged) Initial ECG Intervals Atrioventricular dual paced rhythm Initial ECG Impression: Nonspecific Changes Initial ECG Comparisson: Changed Comment No ST-T wave aberrations. P waves not since. Paced rhythm. Diagnostic Imaging Diagonstic Imaging: Xray Plain Films/CT/US/NM/MRI: chest Comments Left lower atelectasis and pulmonary effusion. Compared last study in June this is stable. There are no acute cardiopulmonary processes noted. NAME: JAVIJORGE ALBERTO Tamir [facility] REC#: [id number] PHYSICIAN: ODILON FITZGERALD MD CC: TONA QUIGLEY; ODILON FITZGERALD Page 1 of 1 RADIOLOGY REPORT [facility]. [place], [place] CC: TONA QUIGLEY; ODILON FITZGERALD Page 1 of 1 RADIOLOGY REPORT NAME: JAVIJORGE ALBERTO [facility] REC#: [id number] PT STATUS: REG ER : 1945 PHYSICIAN: ODILON FITZGERALD MD ADMIT DATE: 09/08/16/ER Signed Date of Exam: 09/08/16 CHEST 1 VIEW, AP/PA ONLY INDICATION: Shortness of breath. COMPARISON: Comparison is made with the prior examination dated 07/07/2016. FINDINGS: There is cardiomegaly. There is some left basilar atelectasis and pneumonitis. There is a left pleural effusion. There is no pneumothorax. Mediastinum is unremarkable. Pacemaker overlies the left hemithorax. There has been previous median sternotomy and coronary artery bypass graft. IMPRESSION: 1. Left basilar atelectasis, pneumonitis, and left pleural effusion. 2. Cardiomegaly. Dictated by: Dictated on workstation # [id number] Dict: 09/08/161817 Trans: 09/08/161824 Interpreted by: TONA QUIGLEY Electronically signed by: TONA QUIGLEY 09/08/161824 Reviewed: Reviewed by Me Departure Communication Time/Spoke to Admitting Phy: 19:12 Communication Hopper: Consult cardiology. Time/Spoke to Consulting Physi: 19:12 Communication/Consulting BNP elevations probably secondary to elevated creatinine secondary to dehydration. Trend the troponins. Impression Impression: Primary Impression: SOB (shortness of breath) Additional Impressions: Chest pain, rule out acute myocardial infarction Urinary retention Disposition: ADMITTED INPATIENT (obs) Condition: Improved Decision to Admit Reason: Admit from ER (General) Decision to Admit/Date: Sep 08, 2016 Time/Decision to Admit Time: 19:12 Departure-Patient Inst. Referrals: ARNEL REZA MD (PCP/Family) Primary Care Physician Copy Copies To 1: ARNEL REZA MD, TITUS J Sep 08, 2016 17:52
[2016-09-08 18:21] LABS: INR 1.4 (0.8-1.4); PROTHROMBIN TIME PATIENT 16.4 SEC (12.2-14.7)
--- NOTE | 2016-09-08 18:25 | Diagnostic Imaging Report ---
INDICATION: Shortness of breath. COMPARISON: Comparison is made with the prior examination dated 07/07/2016. FINDINGS: There is cardiomegaly. There is some left basilar atelectasis and pneumonitis. There is a left pleural effusion. There is no pneumothorax. Mediastinum is unremarkable. Pacemaker overlies the left hemithorax. There has been previous median sternotomy and coronary artery bypass graft. IMPRESSION: 1. Left basilar atelectasis, pneumonitis, and left pleural effusion. 2. Cardiomegaly. Dictated by: Dictated on workstation # [id number]
[2016-09-08] MEDS ORDERED: NS IV 500 ML 500 ML IV ONE (18:35)
[2016-09-08 18:38] LABS: BAND NEUTROPHILS 4 %; BASOPHILS % (MANUAL) 0 %; EOSINOPHILS % (MANUAL) 19 %; LYMPHOCYTES % (MANUAL) 27 %; NEUTROPHILS % (MANUAL) 48 %
[2016-09-08 18:44] LABS: ALBUMIN 3.2 GM/DL (3.2-4.5); BILIRUBIN,TOTAL 0.6 MG/DL (0.1-1.0); CALCIUM 8.3 MG/DL (8.5-10.1); CREATININE SERUM 1.69 MG/DL (0.60-1.30); MAGNESIUM 1.8 MG/DL (1.8-2.4); POTASSIUM 4.5 MMOL/L (3.6-5.0)
[2016-09-08 18:51] LABS: MYOGLOBIN SERUM 50.5 NG/ML (10.0-92.0)
[2016-09-08 19:03] LABS: BILIRUBIN,URINE NEGATIVE (NEGATIVE); KETONES,URINE NEGATIVE (NEGATIVE); LEUKOCYTE ESTERASE ,URINE 3+ (NEGATIVE); NITRITE,URINE POSITIVE (NEGATIVE); PH,URINE 6 (5-9); PROTEIN,URINE NEGATIVE (NEGATIVE); UROBILINOGEN,URINE NORMAL (NORMAL)
[2016-09-08 19:12] LABS: WBC,URINE 50-100 /HPF
--- OUTSIDE RECORDS SUMMARY | 2016-09-08 19:47 | XMS REPORT | Continuity of Care Document ---
Author Author [facility] Organization [facility] Address Unknown Phone Unavailable Allergies Active Description Code Type Severity Reaction Onset Reported/Identified Relationship to Patient Clinical Status Yes No Known Drug Allergies [id number] Drug Allergy Unknown N/ A 02/08/2013 Yes metoprolol [id number] Drug Allergy Unknown N/A 09/18/2014 Yes rivaroxaban [id number] Drug Allergy Unknown N/A 12/18/2014 Medications Problems [...] V53.6 FITTING URINARY DEVICES 02/23/2014 PHANI VILLA DAY CARE PROVIDER Ot 599.0 URIN TRACT INFECTION NOS 02/23/2014 PHANI VILLA DAY CARE PROVIDER Ot V55.6 ATTEN TO URINOSTOMY NEC 03/19/2014 ARNEL REZA MD Ot 415.19 03/19/2014 ARNEL REZA MD Ot 453.40 03/19/2014 ARNEL REZA MD Ot 414.01 CORONARY ATHEROSCLEROSIS OF [place] CORON 03/19/2014 ARNEL REZA MD Ot 414.8 [...] 12/18/2014 ROSEMARY CAMPOS, PIEDAD Waller Ot Z79.82 COUNTERINTELLIGENCE ANALYST (CURRENT) USE OF ASPIRIN 12/18/2014 ROSEMARY CAMPOS, PIEDAD Waller Ot Z79.899 OTHER SKILLED NURSING (CURRENT) DRUG THERAPY 06/03/2015 WARD EPSTEIN DEBBIE Ot E78.5 HYPERLIPIDEMIA, UNSPECIFIED 06/03/2015 WARD DO, DEBBIE Ot I10 ESSENTIAL (PRIMARY) HYPERTENSION 06/03/2015 WARD EPSTEIN DEBBIE Ot I25.110 ATHSCL HEART DISEASE OF [place] COR ART W 06/03/2015 WARD DO DEBBIE [...] UNSPECI 06/03/2015 WARD EPSTEIN DEBBIE Ot Z79.01 COUNTERINTELLIGENCE ANALYST (CURRENT) USE OF ANTICOAGULANT 06/03/2015 WARD EPSTEIN DEBBIE Ot Z79.899 OTHER COUNTERINTELLIGENCE ANALYST (CURRENT) DRUG THERAPY 06/10/2015 WARD EPSTEIN DEBBIE [...] TRA 07/27/2015 PIEDAD RILEY MD Ot T83.098A [facility] COMPL OF OTH INDWELLING URETHRAL CA 07/29/2015 PIEDAD RILEY MD Ot F17.210 NICOTINE DEPENDENCE, CIGARETTES, UNCOMPL 07/29/2015 PIEDAD RILEY MD Ot N39.0 URINARY TRACT INFECTION, SITE NOT SPECIF 07/29/2015 PIEDAD RILEY MD Ot N40.1 ENLARGED PROSTATE WITH LOWER URINARY TRA 07/29/2015 PIEDAD RILEY MD Ot T83.098A [facility] COMPL OF OTH INDWELLING URETHRAL CA 07/30/2015 PIEDAD RILEY MD Ot F17.210 NICOTINE DEPENDENCE, CIGARETTES, UNCOMPL 07/30/2015 PIEDAD RILEY MD Ot N39.0 URINARY TRACT INFECTION, SITE NOT SPECIF 07/30/2015 PIEDAD RILEY MD Ot N40.1 ENLARGED PROSTATE WITH LOWER URINARY TRA 07/30/2015 PIEDAD RILEY MD Ot T83.098A [facility] COMPL OF OTH INDWELLING URETHRAL CA 08/02/2015 PIEDAD RILEY MD Ot F17.210 NICOTINE DEPENDENCE, CIGARETTES, UNCOMPL 08/02/2015 PIEDAD RILEY MD Ot N39.0 URINARY TRACT INFECTION, SITE NOT SPECIF 08/02/2015 PIEDAD RILEY MD Ot N40.1 ENLARGED PROSTATE WITH LOWER URINARY TRA 08/02/2015 PIEDAD RILEY MD Ot T83.098A [facility] COMPL OF OTH INDWELLING URETHRAL CA 09/03/2015 DEBBIE HOPPER DO Ot E78.5 HYPERLIPIDEMIA, UNSPECIFIED 09/03/2015 DEBBIE HOPPER DO Ot I10 ESSENTIAL (PRIMARY) HYPERTENSION 09/03/2015 DEBBIE HOPPER DO Ot I25.110 ATHSCL HEART DISEASE OF [place] COR ART W 09/03/2015 DEBBIE HOPPER DO [...] UNSPECI 09/03/2015 DEBBIE HOPPER DO Ot Z79.01 SKILLED NURSING (CURRENT) USE OF ANTICOAGULANT 09/03/2015 DEBBIE HOPPER DO Ot Z79.899 OTHER SKILLED NURSING (CURRENT) DRUG THERAPY 10/24/2015 MARKIE FREIRE MD Ot N40.1 ENLARGED PROSTATE WITH LOWER URINARY TRA 10/24/2015 MARKIE FREIRE MD Ot T83.098A [facility] COMPL OF OTH INDWELLING URETHRAL CA 03/12/2016 ERWIN DALLAS MD, Ot I10 ESSENTIAL (PRIMARY) HYPERTENSION 03/12/2016 ERWIN DALLAS MD Ot I25.10 ATHSCL HEART DISEASE OF [place] CORONARY 03/12/2016 ERWIN DALLAS MD, Ot J40 BRONCHITIS, NOT SPECIFIED ACUTE OR CH 03/12/2016 ERWIN DALLAS MD, Ot R05 COUGH 03/12/2016 ERWIN DALLAS MD Ot Z79.82 SKILLED NURSING (CURRENT) USE OF ASPIRIN 03/12/2016 ERWIN DALLAS MD Ot Z79.899 OTHER COUNTERINTELLIGENCE ANALYST (CURRENT) DRUG THERAPY 03/12/2016 ERWIN DALLAS MD [...] MD Ot I25.10 ATHSCL HEART DISEASE OF [place] CORONARY 03/15/2016 ERWIN DALLAS MD Ot J40 BRONCHITIS, NOT SPECIFIED ACUTE OR CH 03/15/2016 ERWIN DALLAS MD Ot R05 COUGH 03/15/2016 ERWIN DALLAS MD Ot Z79.82 SKILLED NURSING (CURRENT) USE OF ASPIRIN 03/15/2016 ERWIN DALLAS MD Ot Z79.899 OTHER COUNTERINTELLIGENCE ANALYST (CURRENT) DRUG THERAPY 03/15/2016 ERWIN DALLAS MD Ot Z86.718 PERSONAL HISTORY OF OTHER VENOUS THROMBO 07/09/2016 ARNEL REZA MD Ot E78.5 HYPERLIPIDEMIA, UNSPECIFIED 07/09/2016 ARNEL REZA MD, Ot I10 ESSENTIAL (PRIMARY) HYPERTENSION 07/09/2016 ARNEL REZA MD Ot I25.10 ATHSCL HEART DISEASE OF [place] CORONARY 07/09/2016 ARNEL REZA MD Ot I26.99 OTHER PULMONARY EMBOLISM WITHOUT ACUTE C 07/09/2016 ARNEL REZA MD Ot I44.7 LEFT BUNDLE-BRANCH BLOCK, UNSPECIFIED 07/09/2016 ARNEL REZA MD Ot 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 SYSTOLIC (CONGESTIVE) HEART FAIL 07/09/2016 ARNEL REZA MD Ot I82.413 ACUTE EMBOLISM AND THROMBOSIS OF [place] 07/09/2016 ARNEL REZA MD Ot I82.433 ACUTE EMBOLISM AND THROMBOSIS OF [place] 07/09/2016 ARNEL REZA MD Ot N39.0 URINARY TRACT INFECTION, SITE NOT SPECIF 07/09/2016 ARNEL REZA MD Ot N40.1 BENIGN PROSTATIC HYPERPLASIA WITH LOWER 07/09/2016 ARNEL REZA MD Ot Z79.01 SKILLED NURSING (CURRENT) USE OF ANTICOAGULANT 07/09/2016 ARNEL REZA MD Ot Z91.14 PATIENT'S OTHER NONCOMPLIANCE WITH MEDIC 07/09/2016 ARNEL REZA MD Ot Z91.19 PATIENT'S NONCOMPLIANCE W [facility] Procedures Code Description Performed By Performed On [id number] FLUOROSCOPY OF MULT COR ART USING L [...] culture - 10/24/15 02:18 Bacterial urine culture [id number] NRG COLONY COUNT 10,000/ML - 100,000/ML NRG FTX;REPORTABLE SENSITIVITY REPORTED AT 0953, 8-28-16 [facility] Bacterial susceptibility panel - 10/24/15 02:18 Gentamicin [...] NRG Blood erythrocyte morphology finding identification NORMAL [facility] Blood platelet clump detection by light microscopy OCCASIONAL [facility] Comprehensive metabolic panel - 03/12/16 15:51 Serum [...] culture - 03/12/16 17:14 Bacterial urine culture [id number] NRG COLONY COUNT 10,000/ML - 100,000/ML NRG [...] culture - 07/07/16 23:05 Bacterial urine culture [id number] NRG COLONY COUNT 10,000/ML - 100,000/ML NRG [...] Status Pt. Type Provider Facility Loc./Unit Complaint [id number] 07/08/2016 11:26:00 2016 13:40:00 DIS Outpatient LIBIA CAMPOS, ARNEL Jenkins [facility] CSD CHEST PAIN; BRODYCARDIA WITH BIGEMINY [id number] 03/12/2016 15:47:00 2016 18:02:00 DIS Emergency CELENA CAMPOS, ERWIN Rodríguez [facility] ER CP/SOA [id number] 10/24/2015 02:02:00 2015 02:49:00 DIS Emergency MARKIE FREIRE MD [facility] ER CATH STOPPED UP [id number] 07/27/2015 15:24:00 2015 19:05:00 DIS Emergency ROSEMARY CAMPOS, PIEDAD Waller [facility] ER CATHETER BLOCKED [id number] 06/01/2015 20:14:00 2015 11:05:00 DIS Outpatient DEBBIE HOPPER DO [facility] CATH CHEST PAIN;LEG EDEMA;DYSPNEA;HX OF DVT P E [id number] 12/18/2014 20:04:00 2014 21:34:00 DIS Emergency PIEDAD RILEY MD [facility] ER UNABLE TO URINATE [id number] 09/18/2014 04:05:00 2014 14:55:00 DIS Inpatient ARNEL REZA MD [facility] CSD SYNCOPAL EPISODE;CHRONIC PULMONARY EMBOLISM [id number] 04/10/2014 11:56:00 2014 23:59:59 CLS Outpatient GABRIELLE TROTTER MD [facility] CARD LBB,DVT [id number] 03/15/2014 14:02:00 2014 15:19:00 DIS Inpatient ARNEL REZA MD [facility] CSD BILATERAL PULMONARY EMBOLIS [id number] 02/23/2014 12:22:00 2013 13:19:00 DIS Emergency PHANI VILLA APRN [facility] ER CATHETER CAME OUT [id number] 12/26/2013 22:05:00 2013 23:56:00 DIS Emergency SHAYY REYES DO [facility] ER CATH FELL OUT [id number] 09/11/2013 08:12:00 2013 10:38:00 DIS Emergency ROSEMARY CAMPOS, PIEDAD Waller [facility] ER CATHETER PLUGGED [id number] 06/15/2013 15:52:00 2013 16:45:00 DIS Emergency [id number] 03/03/2013 08:10:00 2013 11:02:00 DIS Inpatient JAYJAY CARBAJAL MD [facility] SURGICAL [id number] 02/27/2013 21:03:00 2012 22:30:00 DIS Emergency [id number] 02/08/2013 15:26:00 2012 17:24:00 DIS Inpatient [id number] 05/05/2014 20:44:00 Document Registration
[2016-09-08 21:21] VITALS: BP 150/79
[2016-09-09] VITALS (7 sets, daily range): BP systolic 108–147; BP diastolic 65–86
[2016-09-09 06:22] LABS: BASOPHILS # (AUTO) 0.1 10^3/uL (0.0-0.1); BASOPHILS % (AUTO) 1 % (0-10); EOSINOPHILS # (AUTO) 1.4 10^3/uL (0.0-0.3); EOSINOPHILS % (AUTO) 22 % (0-10); LYMPHOCYTES # (AUTO) 1.3 X 10^3 (1.0-4.0); LYMPHOCYTES % (AUTO) 20 % (12-44); MEAN CORPUSCULAR HEMOGLOBIN 29 PG (25-34); MEAN CORPUSCULAR HGB CONC 32 G/DL (32-36); MEAN CORPUSCULAR VOLUME 92 FL (80-99); MEAN PLATELET VOLUME 9.2 FL (7.4-10.4); MONOCYTES # (AUTO) 0.5 X 10^3 (0.0-1.0); MONOCYTES % (AUTO) 9 % (0-12); NEUTROPHILS % (AUTO) 48 % (42-75); PLATELET COUNT 336 10^3/uL (130-400); RED BLOOD COUNT 3.33 10^6/uL (4.35-5.85); RED CELL DISTRIBUTION WIDTH 14.3 % (10.0-14.5); WHITE BLOOD COUNT 6.3 10^3/uL (4.3-11.0)
[2016-09-09 06:44] LABS: ALBUMIN 3.3 GM/DL (3.2-4.5); BILIRUBIN,TOTAL 0.7 MG/DL (0.1-1.0); CALCIUM 8.9 MG/DL (8.5-10.1); CREATININE SERUM 1.46 MG/DL (0.60-1.30); POTASSIUM 4.6 MMOL/L (3.6-5.0); TOTAL PROTEIN 6.3 GM/DL (6.4-8.2)
[2016-09-09 06:48] LABS: CHOLESTEROL 153 MG/DL (< 200); DIRECT LDL 89 MG/DL (1-129); TRIGLYCERIDES 52 MG/DL (<150); VLDL CHOLESTEROL 10 MG/DL (5-40)
[2016-09-09 06:54] LABS: TROPONIN I 0.51 NG/ML (<0.30)
[2016-09-09] MEDS ORDERED: CATHETER FLUSH 10 ML SYR IV PRN (09:00)
[2016-09-09] MEDS ORDERED: APIXABAN 5 MG (ELIQUIS) TABLET PO SCH (09:00)
[2016-09-09] MEDS ORDERED: REGADENOSON 0.4 MG/5 ML SYR (LEXISCAN) IV ONE ×2 (09:43→10:00)
--- NOTE | 2016-09-09 10:01 | Consultation-Cardiology ---
HPI-Cardiology Cardiology Consultation: Date of Consultation 09/09/16 Date of Admission Attending Physician Cinthya Hopper DO Admitting Physician Jd Slater MD Consulting Physician Gabrielle SANTOS MD HPI: Time Seen by Provider: 09:45 Chief Complaint: chest pain and shortness of breath this is a 70-year-old gentleman who has history of significant coronary artery disease, he had CABG with 5 bypasses at [facility] in [place] 3 weeks ago. He also had a pacemaker due to significant bradycardia. He presents with episode of shortness of breath, sweating and chest pain yesterday. Symptoms were substernal with no radiation. There were no associated palpitations , syncope or near syncope. Review of Systems-Cardiology Review of Systems Constitutional: No As described under HPI, No no symptoms reported, No chills, No fever, No lightheadedness, No malaise, No tiredness, No weight loss, No weight gain, No other Eyes: No As described under HPI, No no symptoms reported, No blindness, No blurred vision, No contact lenses, No drainage, No decreased acuity, No foreign body sensation, No glasses, No inflammation, No pain, No photophobia, No previous injury, No shadows, No tunnel vision, No other, No vision change Ears/Nose/Throat: No As described under HPI, No no symptoms reported, No chronic hearing loss, No epistaxis, No ear discharge, No ear pain, No loose teeth, No mouth pain, No mouth swelling, No nasal drainage, No nose pain, No recent hearing loss, No throat pain, No throat swelling, No ulcerations, No other Respiratory: shortness of breath Cardiovascular: chest pain Gastrointestinal: No no symptoms reported, No As described under HPI, No abdomen distended, No abdominal pain, No blood streaked bowels, No constipation , No diarrhea, No difficulty swallowing, No nausea, No poor appetite, No poor fluid intake, No rectal bleeding, No vomiting, No other, No nausea/vomiting/ diarrhea, No stool coloration changes Genitourinary: No no symptoms reported, No As described under HPI, No burning, No dysuria, No discharge, No frequency, No flank pain, No hematuria, No incontinence, No pain, No urgency, No other, No urine frequency changes, No urine coloration changes Musculoskeletal: No no symptoms reported, No As describe under HPI, No back pain, No gout, No joint pain, No joint swelling, No muscle pain, No muscle stiffness, No neck pain, No other Skin: No no symptoms reported, No As described under HPI, No change in color, No change in hair/nails, No dryness, No lesions, No lumps, No rash, No other, No skin related problems, No ulcerations, No rash on exposed areas, No ulcerations on exposed areas Psychiatric/Neurological: No As described under HPI, No anxiety, No depression , No emotional problems, No focal weakness, No headache, No no symptoms reported , No numbness, No other, No pre-existing deficit, No seizure, No syncope, No tingling, No tremors, No weakness AOM-[id number]-Pjlizu Hx Patient Social History Alcohol Use: Denies Use Recreational Drug Use: No Smoking Status: Never a Smoker 2nd Hand Smoke Exposure: No Recent Foreign Travel: No Recent Infectious Disease Expo: No Physical Abuse Screen: No Sexual Abuse: No Immunizations Up To Date Tetanus Booster (TDap): Unknown Date of Pneumonia Vaccine: Feb 28, 2013 Date of Influenza Vaccine: Apr 18, 2014 Past Medical History PMH As described under Assessment. Family Medical History Family History: Cancer (LINING OF ABD CAVITY, AT AGE 80) 03 MOTHER Chest pain (FATHER OF [place] AT AGE 83) 03 FATHER Congestive heart failure 03 FATHER Family history: Arthritis 03 MOTHER Family history: Cardiovascular disease 03 FATHER Heart disease 03 FATHER Hypercholesterolemia 03 FATHER 03 MOTHER Myocardial infarction 03 FATHER Prostate cancer (DIAGNOSED AT 72 OR 73 PER PT) 03 FATHER Stroke 09 SISTER Visual impairment (SISTER WEARS GLASSES ) 09 SISTER No Family History of: Abdominal aortic aneurysm Jorge's disease Alcoholism Aphasia Cancer of colon Cataract Congenital heart disease Cystic fibrosis Dementia Dysphagia Family history: Allergy Family history: Alzheimer's disease Family history: Asthma Family history: Breast disease Family history: Coronary thrombosis Family history: Diabetes mellitus Family history: Gastrointestinal disease Family history: Glaucoma Family history: Hypertension Family history: Osteoporosis Family history: Thyroid disorder Headache Hearing loss Hereditary disease History of - anemia History of - disorder History of - respiratory disease History of drug abuse Human immunodeficiency virus (HIV) seropositivity Infertile Kidney disease Malignant neoplasm of lung Parkinson's disease Psychotic disorder Seizure disorder Tuberculosis Allergies and Home Medications Allergies Coded Allergies: metoprolol (Unverified Allergy, Unknown, 09/18/14) "sunburn" rivaroxaban (Unverified Allergy, Unknown, 12/18/14) VOMITING/DIARRHEA Home Medications Amiodarone HCl 200 Mg Tablet, 400 MG PO BID, (Reported) TAKES 2 (200MG) TABLETS Apixaban 5 Mg Tablet, 5 MG PO BID, (Reported) Aspirin 325 Mg Tablet.dr, 325 MG PO DAILY for 30 Days Prescribed by: CINTHYA HOPPER on 07/09/16 1127 Carvedilol 12.5 Mg Tablet, 12.5 MG PO BID, (Reported) Furosemide 40 Mg Tablet, 40 MG PO DAILY, (Reported) Losartan Potassium 25 Mg Tablet, 25 MG PO DAILY, (Reported) Lovastatin 10 Mg Tablet, 10 MG PO DAILY, (Reported) Potassium Chloride 20 Meq Tab.er.prt, 20 MEQ PO DAILY, (Reported) Physical Exam-Cardiology Physical Exam Vital Signs/I&O Vital Sign - Last 12Hours 09/09/16 09/09/16 09/09/16 09/09/16 00:00 01:00 04:00 07:00 Temp 98.3 99.1 Pulse 85 80 81 85 Resp 22 20 B/P (MAP) 118/73 112/69 Pulse Ox 94 96 O2 Delivery Room Air Room Air 09/09/16 09/09/16 08:00 09:00 Temp 97.5 Pulse 80 Resp 20 B/P (MAP) 133/78 Pulse Ox 95 95 O2 Delivery Room Air Room Air O2 Flow Rate 2.00 Intake and Output 09/09/16 00:00 Intake Total 0 ml Output Total 375 ml Balance -375 ml Capillary Refill : Less Than 3 Seconds Constitutional: No appears stated age, No AAO x 3, No apparent distress, No PERRL, No well-developed, No well-nourished, No other HEENT: No PERRL, No normal ENT inspection, No TMs normal, No pharynx normal, No scleral icterus (R), No scleral icterus (L), No pale conjunctivae (R), No pale conjunctivae (L), No photophobia, No TM abnormal (R), No TM abnormal (L), No pharyngeal erythema, No tonsillar exudate, No other, No discharge, No EOMI, No hearing is well preserved, No hard of hearing, No oral hygience is good, No ulceration, No xanthelasmas are seen Neck: No non-tender, No full range of motion, No supple, No normal inspection, No carotid bruit, No limited range of motion, No lymphadenopathy (R), No lymphadenopathy (L), No tender lateral, No tender midline, No thyromegaly, No other, No carotid pulses are 2 + bilaterally, No with good upstrokes Respiratory: No accessory muscle use, No respiratory distress, No chest tender , No chest expansion is symmetric, No chest is bilaterally symmetric, No lungs clear to percussion, No lungs clear to auscultation, No crackles, No rhonchi, No rales, No stridor, No wheezing, No pleural rub, No other Cardiovascular: No regular rate-rhythm, No irregularly irregular, No extra beats, No parasternal heave is noted, No JVD, edema, No bradycardia, No tachycardia, No point of maximal impulse, No cardiac thrills are palpable, No S1 and S2, No gallop/S3, No gallop/S4, No diastolic murmur, No systolic murmur, No friction rub, No click, No other Gastrointestinal: No tender, No soft, No round, No distended, No pulsatile mass , No organomegaly, No guarding, No rebound, No tenderness, No hernia, No mass, No audible bowel sounds, No abnormal bowel sounds, No abdominal bruits, No spleenomegaly, No other Rectal: deferred Extremities: No normal range of motion, No non-tender, No normal inspection, No pedal edema, No calf tenderness, No normal capillary refill, No pelvis stable , No calf tenderness, No inflammation, No pedal edema, No slow capillary refill , No swelling, No other, No abrasion, No clubbing, No cyanosis, No ecchymosis, No laceration, No no lower extremity edema bilateral, No significant edema, No tenderness, No wound Neurologic/Psychiatric: No wet pan operator II-XII nml as tested, No no motor/sensory deficits, No alert, No normal mood/affect, No oriented x 3, No abnormal cerebellar tests, No abnormal wet pan operator II-XII, No abnormal gait, No aphasia, No EOM palsy, No facial droop, No motor weakness, No sensory deficit, No depressed affect, No disoriented x 3, No other, No grossly intact, No power is 5/5 both on sides Skin: No normal color, No warm/dry, No cyanosis, No cool, No diaphoresis, No damp, No ecchymosis, No jaundice, No mottled, No pallor, No rash, No tattoos/ piercings, No ulcerations, No rash on exposed areas, No ulcerations on exposed areas, No other Data Review Labs Laboratory Tests 09/08/16 17:31: White Blood Count 6.7, Red Blood Count 3.47L, Hemoglobin 9.8L, Hematocrit 32L, Mean Corpuscular Volume 91, Mean Corpuscular Hemoglobin 28, Mean Corpuscular Hemoglobin Concent 31L, Red Cell Distribution Width 14.3, Platelet Count 328, Mean Platelet Volume 9.4, Neutrophils (%) (Auto) 50, Lymphocytes (%) (Auto) 23, Monocytes (%) (Auto) 10, Eosinophils (%) (Auto) 17H, Basophils (%) (Auto) 1, Neutrophils # (Auto) 3.3, Lymphocytes # (Auto) 1.5, Monocytes # (Auto) 0.7, Eosinophils # (Auto) 1.1H, Basophils # (Auto) 0.1, Neutrophils % (Manual) 48, Lymphocytes % (Manual) 27, Monocytes % (Manual) 2, Eosinophils % (Manual) 19, Basophils % (Manual) 0, Band Neutrophils 4, Blood Morphology Comment NORMAL, Prothrombin Time 16.4H, INR Comment 1.4, Activated Partial Thromboplast Time 32 , B-Type Natriuretic Peptide 233.1H 09/08/16 18:10: Sodium Level 137, Potassium Level 4.5, Chloride Level 105, Carbon Dioxide Level 25, Anion Gap 7, Blood Urea Nitrogen 22H, Creatinine 1.69H, Estimat Glomerular Filtration Rate 40, BUN/Creatinine Ratio 13, Glucose Level 84, Calcium Level 8.3L, Magnesium Level 1.8, Total Bilirubin 0.6, Aspartate Amino Transf (AST/SGOT ) 14, Alanine Aminotransferase (ALT/SGPT) 13, Alkaline Phosphatase 117, Myoglobin 50.5, Troponin I 0.43*H, Total Protein 6.0L, Albumin 3.2 09/08/16 18:57: Urine Color YELLOW, Urine Clarity CLEAR, Urine pH 6, Urine Specific [place] 1.010L, Urine Protein NEGATIVE, Urine Glucose (UA) NEGATIVE, Urine Ketones NEGATIVE, Urine Nitrite POSITIVEH, Urine Bilirubin NEGATIVE, Urine Urobilinogen NORMAL, Urine Leukocyte Esterase 3+H, Urine RBC (Auto) NEGATIVE, Urine RBC NONE , Urine WBC 50-100H, Urine Crystals NONE, Urine Bacteria MODERATEH, Urine Casts NONE, Urine Mucus NEGATIVE, Urine Culture Indicated YES 09/08/16 23:43: Troponin I 0.46*H 09/09/16 06:11: White Blood Count 6.3, Red Blood Count 3.33L, Hemoglobin 9.7L, Hematocrit 31L, Mean Corpuscular Volume 92, Mean Corpuscular Hemoglobin 29, Mean Corpuscular Hemoglobin Concent 32, Red Cell Distribution Width 14.3, Platelet Count 336, Mean Platelet Volume 9.2, Neutrophils (%) (Auto) 48, Lymphocytes (%) (Auto) 20, Monocytes (%) (Auto) 9, Eosinophils (%) (Auto) 22H, Basophils (%) (Auto) 1, Neutrophils # (Auto) 3.0, Lymphocytes # (Auto) 1.3, Monocytes # (Auto) 0.5, Eosinophils # (Auto) 1.4H, Basophils # (Auto) 0.1, Sodium Level 138, Potassium Level 4.6, Chloride Level 105, Carbon Dioxide Level 23, Anion Gap 10, Blood Urea Nitrogen 20H, Creatinine 1.46H, Estimat Glomerular Filtration Rate 47, BUN/ Creatinine Ratio 14, Glucose Level 86, Calcium Level 8.9, Total Bilirubin 0.7, Aspartate Amino Transf (AST/SGOT) 18, Alanine Aminotransferase (ALT/SGPT) 15, Alkaline Phosphatase 123, Troponin I 0.51*H, Total Protein 6.3L, Albumin 3.3, Triglycerides Level 52, Cholesterol Level 153, LDL Cholesterol Direct 89, VLDL Cholesterol 10, HDL Cholesterol 49 Microbiology 09/08/16 Urine Culture - Preliminary, Resulted Gram Negative Mark ECG Impression ECG Initial ECG Rhythm: Normal Sinus A/P-Cardiology Assessment/Admission Diagnosis chest pain, shortness of breath, Coronary artery disease status post recent CABG. Bradycardia, status post recent permanent pacemaker. Plan continue current medical therapy. Pharmacological nuclear stress test is recommended. If abnormal, patient will require coronary angiography. On examination the patient is not in significant congestive heart failure area did bilateral lower external to swelling is noted though Thank you for your consultation. Please call me if you have any questions. Jordyn Santos MD, FACP, FACC, FSCAI, FHRS, CCDS Interventional Cardiology Cardiac Electrophysiology Vascular Medicine and Endovascular Interventions Clinical Quality Measures DVT/VTE Risk/Contraindication: Risk Factor Score Per Nursin RFS Level Per Nursing on Admit: 4+=Very High Gabrielle SANTOS MD Sep 09, 2016 10:01 am
[2016-09-09] MEDS ORDERED: POTA20TA8 PO (10:31)
[2016-09-09] MEDS ORDERED: AMIO200T2 PO (10:31)
[2016-09-09] MEDS ORDERED: CARV12.53 PO (10:31)
[2016-09-09] MEDS ORDERED: FURO40TA4 PO (10:31)
[2016-09-09] MEDS ORDERED: APIX5TAB PO (10:31)
[2016-09-09] MEDS ORDERED: LOSA25TA21 PO (10:31)
[2016-09-09] MEDS ORDERED: LOVA10TA PO (10:31)
[2016-09-09] MEDS ORDERED: ASPI325T32 PO (12:43)
[2016-09-09] MEDS ORDERED: NS IV 1000 ML 0 ML ONE (12:49)
[2016-09-09] MEDS ORDERED: HEParin (CATH LAB) 2,000 ML IV ONE (12:49)
[2016-09-09] MEDS ORDERED: MIDAZOLAM 5 MG/5 ML (VERSED) VIAL ONE (12:55)
[2016-09-09] MEDS ORDERED: fentaNYL INJECTION 100 MCG/2 ML AMP ONE (12:55)
--- NOTE | 2016-09-09 13:48 | Cardiology Progress Note ---
Cardiology SOAP Progress Note Objective: I&O/Vital Signs Vital Sign - Last 12Hours 09/09/16 09/09/16 09/09/16 09/09/16 04:00 07:00 08:00 09:00 Temp 99.1 97.5 Pulse 81 85 80 Resp 20 20 B/P (MAP) 112/69 133/78 Pulse Ox 96 95 95 O2 Delivery Room Air Room Air Room Air O2 Flow Rate 2.00 09/09/16 09/09/16 12:00 12:00 Temp 97.1 97.1 Pulse 80 80 Resp 20 20 B/P (MAP) 147/86 147/86 Pulse Ox 98 98 O2 Delivery Room Air Room Air Intake and Output 09/09/16 00:00 Intake Total 0 ml Output Total 375 ml Balance -375 ml Weight (Pounds): 218 Weight (Ounces): 10.0 Weight (Calculated Kilograms): 99.067465 Constitutional: No appears stated age, No AAO x 3, No apparent distress, No PERRL, No well-developed, No well-nourished, No other Respiratory: No accessory muscle use, No respiratory distress, No chest tender , No chest expansion is symmetric, No chest is bilaterally symmetric, No lungs clear to percussion, No lungs clear to auscultation, No crackles, No rhonchi, No rales, No stridor, No wheezing, No pleural rub, No other Cardiovascular: No regular rate-rhythm, No irregularly irregular, No extra beats, No parasternal heave is noted, No JVD, edema, No bradycardia, No tachycardia, No point of maximal impulse, No cardiac thrills are palpable, No S1 and S2, No gallop/S3, No gallop/S4, No diastolic murmur, No systolic murmur, No friction rub, No click, No other Gastrointestional: No tender, No soft, No round, No distended, No pulsatile mass, No organomegaly, No guarding, No rebound, No tenderness, No hernia, No mass, No audible bowel sounds, No abnormal bowel sounds, No abdominal bruits, No spleenomegaly, No other Extremities: No normal range of motion, No non-tender, No normal inspection, No pedal edema, No calf tenderness, No normal capillary refill, No pelvis stable , No calf tenderness, No inflammation, No pedal edema, No slow capillary refill , No swelling, No other, No abrasion, No clubbing, No cyanosis, No ecchymosis, No laceration, No no lower extremity edema bilateral, No significant edema, No tenderness, No wound Neurologic/Psychiatric: No precision aircraft structure assembler II-XII nml as tested, No no motor/sensory deficits, No alert, No normal mood/affect, No oriented x 3, No abnormal cerebellar tests, No abnormal precision aircraft structure assembler II-XII, No abnormal gait, No aphasia, No EOM palsy, No facial droop, No motor weakness, No sensory deficit, No depressed affect, No disoriented x 3, No other, No grossly intact, No power is 5/5 both on sides Skin: No normal color, No warm/dry, No cyanosis, No cool, No diaphoresis, No damp, No ecchymosis, No jaundice, No mottled, No pallor, No rash, No tattoos/ piercings, No ulcerations, No rash on exposed areas, No ulcerations on exposed areas, No other Results/Procedures: Labs Laboratory Tests 09/08/16 17:31: White Blood Count 6.7, Red Blood Count 3.47L, Hemoglobin 9.8L, Hematocrit 32L, Mean Corpuscular Volume 91, Mean Corpuscular Hemoglobin 28, Mean Corpuscular Hemoglobin Concent 31L, Red Cell Distribution Width 14.3, Platelet Count 328, Mean Platelet Volume 9.4, Neutrophils (%) (Auto) 50, Lymphocytes (%) (Auto) 23, Monocytes (%) (Auto) 10, Eosinophils (%) (Auto) 17H, Basophils (%) (Auto) 1, Neutrophils # (Auto) 3.3, Lymphocytes # (Auto) 1.5, Monocytes # (Auto) 0.7, Eosinophils # (Auto) 1.1H, Basophils # (Auto) 0.1, Neutrophils % (Manual) 48, Lymphocytes % (Manual) 27, Monocytes % (Manual) 2, Eosinophils % (Manual) 19, Basophils % (Manual) 0, Band Neutrophils 4, Blood Morphology Comment NORMAL, Prothrombin Time 16.4H, INR Comment 1.4, Activated Partial Thromboplast Time 32 , B-Type Natriuretic Peptide 233.1H 09/08/16 18:10: Sodium Level 137, Potassium Level 4.5, Chloride Level 105, Carbon Dioxide Level 25, Anion Gap 7, Blood Urea Nitrogen 22H, Creatinine 1.69H, Estimat Glomerular Filtration Rate 40, BUN/Creatinine Ratio 13, Glucose Level 84, Calcium Level 8.3L, Magnesium Level 1.8, Total Bilirubin 0.6, Aspartate Amino Transf (AST/SGOT ) 14, Alanine Aminotransferase (ALT/SGPT) 13, Alkaline Phosphatase 117, Myoglobin 50.5, Troponin I 0.43*H, Total Protein 6.0L, Albumin 3.2 09/08/16 18:57: Urine Color YELLOW, Urine Clarity CLEAR, Urine pH 6, Urine Specific [place] 1.010L, Urine Protein NEGATIVE, Urine Glucose (UA) NEGATIVE, Urine Ketones NEGATIVE, Urine Nitrite POSITIVEH, Urine Bilirubin NEGATIVE, Urine Urobilinogen NORMAL, Urine Leukocyte Esterase 3+H, Urine RBC (Auto) NEGATIVE, Urine RBC NONE , Urine WBC 50-100H, Urine Crystals NONE, Urine Bacteria MODERATEH, Urine Casts NONE, Urine Mucus NEGATIVE, Urine Culture Indicated YES 09/08/16 23:43: Troponin I 0.46*H 09/09/16 06:11: White Blood Count 6.3, Red Blood Count 3.33L, Hemoglobin 9.7L, Hematocrit 31L, Mean Corpuscular Volume 92, Mean Corpuscular Hemoglobin 29, Mean Corpuscular Hemoglobin Concent 32, Red Cell Distribution Width 14.3, Platelet Count 336, Mean Platelet Volume 9.2, Neutrophils (%) (Auto) 48, Lymphocytes (%) (Auto) 20, Monocytes (%) (Auto) 9, Eosinophils (%) (Auto) 22H, Basophils (%) (Auto) 1, Neutrophils # (Auto) 3.0, Lymphocytes # (Auto) 1.3, Monocytes # (Auto) 0.5, Eosinophils # (Auto) 1.4H, Basophils # (Auto) 0.1, Sodium Level 138, Potassium Level 4.6, Chloride Level 105, Carbon Dioxide Level 23, Anion Gap 10, Blood Urea Nitrogen 20H, Creatinine 1.46H, Estimat Glomerular Filtration Rate 47, BUN/ Creatinine Ratio 14, Glucose Level 86, Calcium Level 8.9, Total Bilirubin 0.7, Aspartate Amino Transf (AST/SGOT) 18, Alanine Aminotransferase (ALT/SGPT) 15, Alkaline Phosphatase 123, Troponin I 0.51*H, Total Protein 6.3L, Albumin 3.3, Triglycerides Level 52, Cholesterol Level 153, LDL Cholesterol Direct 89, VLDL Cholesterol 10, HDL Cholesterol 49 Microbiology 09/08/16 Urine Culture - Preliminary, Resulted Gram Negative Mark A/P: Assessment/Dx: chest pain, shortness of breath, Coronary artery disease status post recent CABG. Bradycardia, status post recent permanent pacemaker. Plan: continue current medical therapy. Pharmacological nuclear stress test shows distal anterior/apical infarct with evidence of moderate sized earline-infarct ischemia. EF is 28 percent. I spoke to the patient and recommended coronary angiography but the patient refused. I spoke to him for at least 30 minutes and discussed all the risks and benefits. However, the patient does not want to proceed with an angiogram at this point in time and he understands the risk. I also gave him the option of in the hospital and transferred to [facility] and also an outpatient visit with his cardiac surgeon, however, that will entail higher risk. The patient will think about it and let us know tomorrow morning. The patient also has no electricity at home and is worried about that. I have requested manager social media to get involved. Thank you for your consultation. Please call me if you have any questions. Jordyn Santos MD, FACP, FACC, FSCAI, FHRS, CCDS Interventional Cardiology Cardiac Electrophysiology Vascular Medicine and Endovascular Interventions Gabrielle SANTOS MD Sep 09, 2016 1:48 pm
--- NOTE | 2016-09-09 17:24 | History & Physical-Hospitalist ---
HPI History of Present Illness: HPI/Chief Complaint Mr. Banuelos is a 70-year-old white male roughly 3 weeks out from reported 5 vessel coronary artery bypass grafting done by Dr. Parkinson in [place]. reports that he been progressing well and over the weekend walked up to a mile and a half without symptoms. He currently doesn't have air conditioning and it became quite hot in his home. For 24 hours prior to his admission he was feeling lightheaded with shortness of breath aggravated by exertion. He has a history of ischemic cardiomyopathy and previously is not noted any anginal sounding symptoms. He has never described chest pain or discomfort. He has chronic venous insufficiency and lower extremity edema right greater than left denies that it been any worse than baseline. He has a past history of pulmonary embolism with several episodes. His last occurred in June when he had been noncompliant with L Kaplan. He reports she's been taking L Kaplan and has not missed any of his home medication. He is still on high-dose amiodarone for reasons unknown to him. He is not sure whether or not he had any problems with atrial fibrillation or other heart arrhythmias around his bypass surgery. I'm not aware of any past bouts prior to bypass of atrial fibrillation or ventricular arrhythmia. Date Seen 09/09/16 Time Seen by Provider: 17:30 Attending Physician Cinthya Molina Mark D MD Referring Physician Date of Admission Sep 08, 2016 at 19:40 Home Medications & Allergies Home Medications Reviewed patient Home Medication Reconciliation Form Allergies Allergies Coded Allergies metoprolol (Unverified Allergy, Unknown, 09/18/14) "sunburn" rivaroxaban (Unverified Allergy, Unknown, 12/18/14) VOMITING/DIARRHEA Past [id number] Hx Patient Social History Alcohol Use: Denies Use Recreational Drug Use: No Smoking Status: Never a Smoker 2nd Hand Smoke Exposure: No Physical Abuse Screen: No Sexual Abuse: No Recent Foreign Travel: No Contact w/other who traveled: No Recent Hopitalizations: Yes Recent Infectious Disease Expo: No Immunizations Up To Date Tetanus Booster (TDap): Unknown Date of Pneumonia Vaccine: Feb 28, 2013 Date of Influenza Vaccine: Apr 18, 2014 Seasonal Allergies Seasonal Allergies: No Surgeries HX Surgeries: Yes (BILATERAL CATARACTS) Surgeries: CABG, Eye Surgery, Pacemaker, Vascular Surgery Respiratory Hx Respiratory Disorders: Yes (PE 03/15/14) Cardiovascular Hx Cardiovascular Disorders: Yes (snypocal episode 09/17/14; DVT WITH P.E. 2015- -ON ELIQUIS) Cardiac Disorders: Coronary Artery Disease, Deep Vein Thrombosis, Heart Murmur , High Cholesterol, Hypertension Neurological Hx Neurological Disorders: No Reproductive System Hx Reproductive Disorders: No Genitourinary Hx Genitourinary Disorders: Yes (obstructive uropathy with chronic solo cathater) Genitourinary Disorders: Benign Prostatic Hyperpl, Prostate Problems, Renal Failure, Neurogenic Bladder, UTI-Chronic Gastrointestinal Hx Gastrointestinal Disorders: No Musculoskeletal Hx Musculoskeletal Disorders: Yes (ANKLE FX) Musculoskeletal Disorders: Fractures Endocrine Hx Endocrine Disorders: No HEENT HX ENT Disorders: Yes (bilateral cataracts removed) HEENT Disorders: Cataract Loss of Vision: Denies Hearing Impairment: Denies Cancer Hx Cancer: No Psychosocial Hx Psychiatric Problems: No Integumentary HX Skin/Integumentary Disorder: No Blood Transfusions Hx Blood Disorders: No Family Medical History Family Hx: Cancer (LINING OF ABD CAVITY, AT AGE 80) 03 MOTHER Chest pain (FATHER OF [place] AT AGE 83) 03 FATHER Congestive heart failure 03 FATHER Family history: Arthritis 03 MOTHER Family history: Cardiovascular disease 03 FATHER Heart disease 03 FATHER Hypercholesterolemia 03 FATHER 03 MOTHER Myocardial infarction 03 FATHER Prostate cancer (DIAGNOSED AT 72 OR 73 PER PT) 03 FATHER Stroke 09 SISTER Visual impairment (SISTER WEARS GLASSES ) 09 SISTER No Family History of: Abdominal aortic aneurysm Jorge's disease Alcoholism Aphasia Cancer of colon Cataract Congenital heart disease Cystic fibrosis Dementia Dysphagia Family history: Allergy Family history: Alzheimer's disease Family history: Asthma Family history: Breast disease Family history: Coronary thrombosis Family history: Diabetes mellitus Family history: Gastrointestinal disease Family history: Glaucoma Family history: Hypertension Family history: Osteoporosis Family history: Thyroid disorder Headache Hearing loss Hereditary disease History of - anemia History of - disorder History of - respiratory disease History of drug abuse Human immunodeficiency virus (HIV) seropositivity Infertile Kidney disease Malignant neoplasm of lung Parkinson's disease Psychotic disorder Seizure disorder Tuberculosis Review of Systems Constitutional: No chills, No diaphoresis, No dizziness, No fever, No malaise, weakness, No weight gain, No weight loss, No other Respiratory: No cough, dyspnea on exertion, No hemoptysis, No orthopnea, No phlegm, short of breath, No stridor, No wheezing, No other Cardiovascular: No no symptoms reported, see HPI, No chest pain, edema, No Hx of Intervention, No palpitations, No syncope, vascular heart diseas Physical Exam Physical Exam Vital Signs Vital Sign - Last 12Hours 09/08/16 09/08/16 09/08/16 17:39 21:00 21:01 Temp 98.9 Pulse 82 Resp 16 B/P (MAP) 121/87 Pulse Ox 99 O2 Delivery Room Air O2 Flow Rate 2.00 Capillary Refill : Less Than 3 Seconds General Appearance: No Apparent Distress Neck: Full Range of Motion, Normal Inspection, Non Tender, Supple, Carotid Bruit Respiratory: Chest Non Tender, Lungs Clear, Normal Breath Sounds, No Accessory Muscle Use, No Respiratory Distress Cardiovascular: Regular Rate, Rhythm, No Edema, No Gallop, No JVD, No Murmur, Normal Peripheral Pulses Gastrointestinal: Normal Bowel Sounds, No Organomegaly, No Pulsatile Mass, Non Tender, Soft Extremity: Other (2+ right pedal edema to the mid tibia 1+ on the left lower tibia. Chronic changes of venous insufficiency without ulceration. healing vein harvest surgical incision sites.) Neurologic/Psychiatric: Alert, Oriented x3 Results Results/Procedures Lab Laboratory Tests 09/08/16 17:31 09/08/16 18:10 09/09/16 06:11 09/10/16 10:50 Assessment/Plan Admission Diagnosis 1. Non-ST segment elevation [place] with abnormal nuclear medicine stress test suggesting there is still myocardium at risk. After discussion with the patient he now states that he will go through with recommended cardiac catheterization per Dr. Santos tomorrow. Currently he feels well. While he denies chest discomfort this has not been a symptom he is experienced with ischemic heart disease in the past. We discussed that his warts of breath with lightheadedness may very well be an anginal equivalent. 2. Neurogenic bladder with chronic indwelling Solo catheter. The patient always has bacteriuria and pyuria. He does not feel like he has a urinary tract infection. His urine is slightly yellowish but clear in the bag. We will hold off treatment although I expect him to have multiple cultured bacteria with sensitivities. This may need to be reconsidered if the patient undergoes stent placement. 3. Past history of multiple DVTs with chronic lower extremity venous insufficiency and several episodes of symptomatic pulmonary embolism. The patient has only had recurrences when he is been off of anticoagulant therapy which had been due to intermittent noncompliance in the past. Currently has been taking medication in the form of Eliquis regularly and understands the importance of continuing. Clinical Quality Measures DVT/VTE Risk/Contraindication: Risk Factor Score Per Nursin RFS Level Per Nursing on Admit: 4+=Very High ARNEL REZA MD Sep 09, 2016 17:24
[2016-09-09] MEDS: APIXABAN 5 MG (ELIQUIS) TABLET PO SCH (21:10)
[2016-09-09] MEDS: ATORVASTATIN 40 MG (LIPITOR) TABLET PO SCH (21:10)
[2016-09-09] MEDS: AMIODARONE 200 MG (CORDARONE) TAB PO SCH (21:10)
[2016-09-09] MEDS: CARVEDILOL 12.5 MG (COREG) TABLET PO SCH (21:10)
[2016-09-10] VITALS (12 sets, daily range): BP systolic 90–127; BP diastolic 61–83
[2016-09-10] MEDS: CARVEDILOL 12.5 MG (COREG) TABLET PO SCH ×2 (08:47→20:21)
[2016-09-10] MEDS: FUROSEMIDE 40 MG (LASIX) TAB PO SCH (08:47)
[2016-09-10] MEDS: APIXABAN 5 MG (ELIQUIS) TABLET PO SCH ×2 (08:47→20:30)
[2016-09-10] MEDS: AMIODARONE 200 MG (CORDARONE) TAB PO SCH ×2 (08:47→20:30)
[2016-09-10] MEDS: KCL 20 MEQ TAB (K-DUR) PO SCH (08:47)
[2016-09-10] MEDS: LOSARTAN 25 MG (COZAAR) TAB PO SCH (08:47)
[2016-09-10] MEDS ORDERED: ASPIRIN E.C. 325 MG (ECOTRIN) TABLET PO SCH (09:00)
[2016-09-10] MEDS ORDERED: NS IV 1000 ML 1,000 ML ONE ×2 (10:28→14:27)
[2016-09-10] MEDS ORDERED: HEParin (CATH LAB) 2,000 ML IV ONE (10:28)
[2016-09-10 11:07] LABS: RED BLOOD COUNT 3.68 10^6/uL (4.35-5.85); RED CELL DISTRIBUTION WIDTH 14.2 % (10.0-14.5); WHITE BLOOD COUNT 5.7 10^3/uL (4.3-11.0)
[2016-09-10 11:25] LABS: ALANINE AMINOTRANSFERASE 14 U/L (0-55); ALBUMIN 3.2 GM/DL (3.2-4.5); ANION GAP 5 MMOL/L (5-14); ASPARTATE AMINO TRANSFERASE 16 U/L (5-34); BILIRUBIN,TOTAL 0.7 MG/DL (0.1-1.0); BLOOD UREA NITROGEN 17 MG/DL (7-18); BUN/CREATININE RATIO 15; CARBON DIOXIDE 26 MMOL/L (21-32); CHLORIDE 105 MMOL/L (98-107); CREATININE SERUM 1.15 MG/DL (0.60-1.30); GFR ESTIMATED > 60; GLUCOSE 90 MG/DL (70-105); POTASSIUM 4.8 MMOL/L (3.6-5.0); SODIUM 136 MMOL/L (135-145); TOTAL PROTEIN 6.1 GM/DL (6.4-8.2)
--- NOTE | 2016-09-10 12:24 | STRESS TEST ---
PROCEDURE PHYSICIAN: RADHA SANTOS DATE OF PROCEDURE: 09/09/2016 PHARMACOLOGIC NUCLEAR STRESS TEST REPORT: ATTENDING PHYSICIAN: Dr. Cinthya Molina. PRIMARY PHYSICIAN: Dr. Slater PERFORMING PHYSICIAN: Dr. Adam Santos. DIAGNOSES: 1. Shortness of breath. 2. Chest tightness. 3. Coronary artery disease. 4. Status post CABG. PROCEDURE DETAILS: The patient was brought to the stress lab after informed consent was taken. Lexiscan stress test was performed according to the protocol. 0.4 mg of Lexiscan was given IV. Low grade exercise was performed. Baseline EKG shows atrial ventricular paced rhythm, heart rate was 80 bpm. 10.12 mCi of Myoview were given for rest imaging and 29 mCi of Myoview were given for stress imaging. TID was 1.01. Ejection fraction is 28%. There is severe, moderate sized distal anterior, apical fixed defect. Around this fixed defect there is distal anterior wall and apical reversible defect. SSS 14, SRS is 9 and SDS is 4. IMPRESSION/CONCLUSION: 1. Pharmacological stress test is negative for ischemia. 2. LV systolic dysfunction is noted with an EF of 28%. 3. There is evidence of distal anterior, apical infarct with evidence of significant earline-infarct ischemia. Job ID: [id number] Dictated Date: 09/09/2016 13:12:57 Bridge Carpenter Date: 09/10/2016 12:20:10 / tbeda
--- NOTE | 2016-09-10 13:06 | Progress Note-Hospitalist ---
Subjective HPI/CC On Admission Date Seen by Provider: Sep 10, 2016 Time Seen by Provider: 12:30 Mr. Banuelos is a 70-year-old white male roughly 3 weeks out from reported 5 vessel coronary artery bypass grafting done by Dr. Parkinson in [place]. reports that he been progressing well and over the weekend walked up to a mile and a half without symptoms. He currently doesn't have air conditioning and it became quite hot in his home. For 24 hours prior to his admission he was feeling lightheaded with shortness of breath aggravated by exertion. He has a history of ischemic cardiomyopathy and previously is not noted any anginal sounding symptoms. He has never described chest pain or discomfort. He has chronic venous insufficiency and lower extremity edema right greater than left denies that it been any worse than baseline. He has a past history of pulmonary embolism with several episodes. His last occurred in June when he had been noncompliant with L Kaplan. He reports she's been taking L Kaplan and has not missed any of his home medication. He is still on high-dose amiodarone for reasons unknown to him. He is not sure whether or not he had any problems with atrial fibrillation or other heart arrhythmias around his bypass surgery. I'm not aware of any past bouts prior to bypass of atrial fibrillation or ventricular arrhythmia. Subjective/Events-last exam patient reports he slept well last night reports no chest pain or shortness of breath. Appetite is been normal and he denies any significant pain over his chest or leg incision sites. Objective Exam Vital Signs Vital Sign - Last 12Hours 09/08/16 09/08/16 09/08/16 17:39 21:00 21:01 Temp 98.9 Pulse 82 Resp 16 B/P (MAP) 121/87 Pulse Ox 99 O2 Delivery Room Air O2 Flow Rate 2.00 Capillary Refill : Less Than 3 Seconds General Appearance: No Apparent Distress, WD/WN Respiratory: Chest Non Tender, Lungs Clear, Normal Breath Sounds, No Accessory Muscle Use, No Respiratory Distress Cardiovascular: Regular Rate, Rhythm, No Edema, No Gallop, No JVD, No Murmur, Normal Peripheral Pulses Extremity: Other (stable lower extremity edema 2+ right 1+ left) Neurologic/Psychiatric: Alert, Oriented x3 Results/Procedures Lab Laboratory Tests 09/10/16 10:50 Assessment/Plan Assessment and Plan Assess & Plan/Chief Complaint an. Non-ST segment elevation [place] 3 weeks post 5 vessel cardiac bypass. Abnormal nuclear medicines stress test per Dr. Santos isn't consenting now to proceed with cardiac catheterization to follow later today. Discharge orders have been placed timing to be determined by Dr. Santos. 2. Past history of multiple DVTs and several episodes of pulmonary embolism continue Eliquis indefinitely. ARNEL REZA MD Sep 10, 2016 13:06
[2016-09-10] MEDS ORDERED: fentaNYL INJECTION 100 MCG/2 ML AMP ONE (14:12)
[2016-09-10] MEDS ORDERED: MIDAZOLAM 5 MG/5 ML (VERSED) VIAL ONE (14:12)
--- NOTE | 2016-09-10 14:21 | Cardiac Procedure Note-CS/ASA ---
Pre-Procedure Note Pre-Op Procedure Note H&P Reviewed The H&P was reviewed, patient examined and no changes noted. Date H&P Reviewed: Sep 10, 2016 Time H&P Reviewed: 14:21 Conscious Sedation Pre-Proced Time Reviewed: 14:21 ASA Class: 3 Airway Mallampati Classification: (deering appropriate class) I. II. III, IV Lungs Heart ASA score ASA 1: a normal healthy patient ASA 2: a patient with a mild systemic disease (mid diabetes, controlled hypertension, obesity ASA 3: a patient with a severe systemic disease that limits activity (angina , COPD, prior Myocardial infarction) ASA 4: a patient with an incapacitating disease that is a constant threat to life (CHF, renal failure) ASA 5: a moribund patient not expected to survive 24 hrs. (ruptured aneurysm) ASA 6: a declared brain patient whose organs are being harvested. For emergent operations, add the letter E after the classification Grade 1 Sedation Plan: Analgesia, Amnesia, Plan communicated to team members, Discussed options with patient/fam, Discussed risks with patient/fam Note The patient is an appropriate candidate to undergo the planned procedure, sedation, and anesthesia. The patient immediately re-assessed prior to indication. Gabrielle HINOJOSA MD Sep 10, 2016 2:21 pm
--- NOTE | 2016-09-10 14:21 | Cardiology Progress Note ---
Cardiology SOAP Progress Note Subjective: no further chest discomfort Objective: I&O/Vital Signs Vital Sign - Last 12Hours 09/10/16 09/10/16 09/10/16 09/10/16 03:15 07:00 08:00 12:00 Temp 99.2 98.7 98.2 Pulse 75 91 81 81 Resp 20 16 20 B/P (MAP) 115/71 110/71 116/66 Pulse Ox 91 96 98 O2 Delivery Room Air Room Air Room Air Intake and Output 09/10/16 00:00 Intake Total 710 ml Output Total 2550 ml Balance -1840 ml Weight (Pounds): 212 Weight (Ounces): 8.0 Weight (Calculated Kilograms): 96.957023 Constitutional: No appears stated age, No AAO x 3, No apparent distress, No PERRL, No well-developed, No well-nourished, No other Respiratory: No accessory muscle use, No respiratory distress, No chest tender , No chest expansion is symmetric, No chest is bilaterally symmetric, No lungs clear to percussion, No lungs clear to auscultation, No crackles, No rhonchi, No rales, No stridor, No wheezing, No pleural rub, No other Cardiovascular: No regular rate-rhythm, No irregularly irregular, No extra beats, No parasternal heave is noted, No JVD, edema, No bradycardia, No tachycardia, No point of maximal impulse, No cardiac thrills are palpable, No S1 and S2, No gallop/S3, No gallop/S4, No diastolic murmur, No systolic murmur, No friction rub, No click, No other Gastrointestional: No tender, No soft, No round, No distended, No pulsatile mass, No organomegaly, No guarding, No rebound, No tenderness, No hernia, No mass, No audible bowel sounds, No abnormal bowel sounds, No abdominal bruits, No spleenomegaly, No other Extremities: No normal range of motion, No non-tender, No normal inspection, No pedal edema, No calf tenderness, No normal capillary refill, No pelvis stable , No calf tenderness, No inflammation, No pedal edema, No slow capillary refill , No swelling, No other, No abrasion, No clubbing, No cyanosis, No ecchymosis, No laceration, No no lower extremity edema bilateral, No significant edema, No tenderness, No wound Neurologic/Psychiatric: No medical management trainer II-XII nml as tested, No no motor/sensory deficits, No alert, No normal mood/affect, No oriented x 3, No abnormal cerebellar tests, No abnormal medical management trainer II-XII, No abnormal gait, No aphasia, No EOM palsy, No facial droop, No motor weakness, No sensory deficit, No depressed affect, No disoriented x 3, No other, No grossly intact, No power is 5/5 both on sides Skin: No normal color, No warm/dry, No cyanosis, No cool, No diaphoresis, No damp, No ecchymosis, No jaundice, No mottled, No pallor, No rash, No tattoos/ piercings, No ulcerations, No rash on exposed areas, No ulcerations on exposed areas, No other Results/Procedures: Labs Laboratory Tests 09/10/16 10:50: White Blood Count 5.7, Red Blood Count 3.68L, Hemoglobin 10.4L, Hematocrit 34L, Mean Corpuscular Volume 91, Mean Corpuscular Hemoglobin 28, Mean Corpuscular Hemoglobin Concent 31L, Red Cell Distribution Width 14.2, Platelet Count 318, Mean Platelet Volume 9.0, Sodium Level 136, Potassium Level 4.8, Chloride Level 105, Carbon Dioxide Level 26, Anion Gap 5, Blood Urea Nitrogen 17, Creatinine 1.15, Estimat Glomerular Filtration Rate > 60, BUN/Creatinine Ratio 15, Glucose Level 90, Calcium Level 9.0, Total Bilirubin 0.7, Aspartate Amino Transf (AST/ SGOT) 16, Alanine Aminotransferase (ALT/SGPT) 14, Alkaline Phosphatase 123, Total Protein 6.1L, Albumin 3.2 Microbiology 09/08/16 Urine Culture - Final, Complete Gram Negative Mark A/P: Assessment/Dx: chest pain, shortness of breath, Coronary artery disease status post recent CABG. Bradycardia, status post recent permanent pacemaker. Plan: continue current medical therapy. Pharmacological nuclear stress test shows distal anterior/apical infarct with evidence of moderate sized earline-infarct ischemia. EF is 28 percent. initially the patient had refused coronary angiography yesterday afternoon. I discussed with him again this morning and he is agreeing to coronary angiography. All the risks and complication were explained in detail. Thank you for your consultation. Please call me if you have any questions. Jordyn Santos MD, FACP, FACC, FSCAI, FHRS, CCDS Interventional Cardiology Cardiac Electrophysiology Vascular Medicine and Endovascular Interventions Gabrielle SANTOS MD Sep 10, 2016 2:21 pm
[2016-09-10] MEDS ORDERED: diphenhydrAMINE 50 MG/ML INJ (BENADRYL) ONE (14:35)
--- NOTE | 2016-09-10 15:36 | Cardiology Post Procedure Note ---
Post-Procedure Note Physician (s)/Records Specialist (s) Physician Gabrielle HINOJOSA MD Pre-Procedure Diagnosis Pre-Procedure Diagnosis: Unstable angina, recent CABG Post-Procedure Note Procedure Start Date: Sep 10, 2016 Procedure Start Time: 15:00 Name of Procedure: coronary angiography, LHC, GILLESPIE angiography, Venous graft angiography Findings/Procedure Note Moderate to severe distal LM disease. Severe proximal LAD - Patent GILLESPIE to the LAD. Patent graft to OM. Graft to another OM is occluded. SVG to first diagonal is occluded. First diagonal has diffuse severe disease. Severe RCA disease with patent SVG to distal RCA. Poor LV systolic function Flouro time 9.1min Flouro dose [id number] Anesthesia Type: Conscious Sedation Estimated blood loss (mL): 30 Contrast Amount: 195 Post-Procedure Diagnosis Post-operative diagnosis: Severe [place] CAD. Patent grafts to LAD, OM2 and RCA. Occluded graft to OM1 and First diagonal Gabrielle HINOJOSA MD Sep 10, 2016 3:36 pm
[2016-09-10] MEDS ORDERED: PATIENT MAY USE OWN MEDS, ALL PO SCH (15:45)
[2016-09-10] MEDS: ATORVASTATIN 40 MG (LIPITOR) TABLET PO SCH (20:30)
[2016-09-11 00:09] VITALS: BP 106/64
[2016-09-11] MEDS: NS IV 1000 ML 1,000 ML IV SCH ×4 (02:52→22:17)
[2016-09-11 03:43] VITALS: BP 119/64
[2016-09-11 04:35] LABS: MEAN PLATELET VOLUME 9.7 FL (7.4-10.4); RED BLOOD COUNT 3.61 10^6/uL (4.35-5.85); RED CELL DISTRIBUTION WIDTH 14.2 % (10.0-14.5)
[2016-09-11 05:00] LABS: ANION GAP 10 MMOL/L (5-14); BLOOD UREA NITROGEN 21 MG/DL (7-18); BUN/CREATININE RATIO 18; CALCIUM 8.7 MG/DL (8.5-10.1); CARBON DIOXIDE 21 MMOL/L (21-32); CHLORIDE 104 MMOL/L (98-107); CREATININE SERUM 1.18 MG/DL (0.60-1.30); GFR ESTIMATED > 60; GLUCOSE 88 MG/DL (70-105); POTASSIUM 4.4 MMOL/L (3.6-5.0); SODIUM 135 MMOL/L (135-145)
[2016-09-11 08:00] VITALS: BP 121/58
[2016-09-11] MEDS: FUROSEMIDE 40 MG (LASIX) TAB PO SCH (08:46)
[2016-09-11] MEDS: APIXABAN 5 MG (ELIQUIS) TABLET PO SCH ×2 (08:47→20:07)
[2016-09-11] MEDS: LOSARTAN 25 MG (COZAAR) TAB PO SCH (08:47)
[2016-09-11] MEDS: ASPIRIN E.C. 81 MG (ECOTRIN) TAB PO SCH (08:47)
[2016-09-11] MEDS: CARVEDILOL 12.5 MG (COREG) TABLET PO SCH ×2 (08:47→20:07)
[2016-09-11] MEDS: AMIODARONE 200 MG (CORDARONE) TAB PO SCH ×2 (08:47→20:07)
[2016-09-11] MEDS: KCL 20 MEQ TAB (K-DUR) PO SCH (08:47)
[2016-09-11] MEDS: CLOPIDOGREL 75 MG (PLAVIX) TABLET PO SCH (08:47)
--- NOTE | 2016-09-11 11:53 | Cardiology Progress Note ---
Cardiology SOAP Progress Note Subjective: No Cardec symptoms Objective: I&O/Vital Signs Vital Sign - Last 12Hours 09/11/16 09/11/16 09/11/16 09/11/16 00:09 01:00 03:43 07:00 Temp 99.4 98.7 Pulse 84 78 77 80 Resp 18 18 B/P (MAP) 106/64 119/64 Pulse Ox 95 96 O2 Delivery Room Air Room Air 09/11/16 09/11/16 08:00 08:14 Temp 98.8 Pulse 88 Resp 18 B/P (MAP) 121/58 Pulse Ox 95 95 O2 Delivery Room Air Room Air Intake and Output 09/11/16 00:00 Intake Total 1795 ml Output Total 250 ml Balance 1545 ml Weight (Pounds): 212 Weight (Ounces): 1.0 Weight (Calculated Kilograms): 96.756384 Side: right Groin site without hematoma: Yes Device Insertion Site: without hematoma Drainage: No Constitutional: No appears stated age, No AAO x 3, No apparent distress, No PERRL, No well-developed, No well-nourished, No other Respiratory: No accessory muscle use, No respiratory distress, No chest tender , No chest expansion is symmetric, No chest is bilaterally symmetric, No lungs clear to percussion, No lungs clear to auscultation, No crackles, No rhonchi, No rales, No stridor, No wheezing, No pleural rub, No other Cardiovascular: No regular rate-rhythm, No irregularly irregular, No extra beats, No parasternal heave is noted, No JVD, edema, No bradycardia, No tachycardia, No point of maximal impulse, No cardiac thrills are palpable, No S1 and S2, No gallop/S3, No gallop/S4, No diastolic murmur, No systolic murmur, No friction rub, No click, No other Gastrointestional: No tender, No soft, No round, No distended, No pulsatile mass, No organomegaly, No guarding, No rebound, No tenderness, No hernia, No mass, No audible bowel sounds, No abnormal bowel sounds, No abdominal bruits, No spleenomegaly, No other Extremities: No normal range of motion, No non-tender, No normal inspection, No pedal edema, No calf tenderness, No normal capillary refill, No pelvis stable , No calf tenderness, No inflammation, No pedal edema, No slow capillary refill , No swelling, No other, No abrasion, No clubbing, No cyanosis, No ecchymosis, No laceration, No no lower extremity edema bilateral, No significant edema, No tenderness, No wound Neurologic/Psychiatric: No gis software developer II-XII nml as tested, No no motor/sensory deficits, No alert, No normal mood/affect, No oriented x 3, No abnormal cerebellar tests, No abnormal gis software developer II-XII, No abnormal gait, No aphasia, No EOM palsy, No facial droop, No motor weakness, No sensory deficit, No depressed affect, No disoriented x 3, No other, No grossly intact, No power is 5/5 both on sides Skin: No normal color, No warm/dry, No cyanosis, No cool, No diaphoresis, No damp, No ecchymosis, No jaundice, No mottled, No pallor, No rash, No tattoos/ piercings, No ulcerations, No rash on exposed areas, No ulcerations on exposed areas, No other Results/Procedures: Labs Laboratory Tests 09/11/16 03:48: White Blood Count 6.0, Red Blood Count 3.61L, Hemoglobin 10.3L, Hematocrit 33L, Mean Corpuscular Volume 91, Mean Corpuscular Hemoglobin 29, Mean Corpuscular Hemoglobin Concent 31L, Red Cell Distribution Width 14.2, Platelet Count 296, Mean Platelet Volume 9.7, Sodium Level 135, Potassium Level 4.4, Chloride Level 104, Carbon Dioxide Level 21, Anion Gap 10, Blood Urea Nitrogen 21H, Creatinine 1.18, Estimat Glomerular Filtration Rate > 60, BUN/Creatinine Ratio 18, Glucose Level 88, Calcium Level 8.7 Microbiology 09/08/16 Urine Culture - Final, Complete Gram Negative Mark A/P: Assessment/Dx: chest pain, shortness of breath, Coronary artery disease status post recent CABG. Bradycardia, status post recent permanent pacemaker. Plan: continue current medical therapy. Pharmacological nuclear stress test shows distal anterior/apical infarct with evidence of moderate sized earline-infarct ischemia. EF is 28 percent. Ischemic cardiomyopathy: Continue current aggressive medical therapy. Coronary angiography showed severe [place] three-vessel coronary artery disease. Patent GILLESPIE to the LAD, patent SVG graft to the distal RCA, patent SVG graft to OM. Occluded graft to first diagonal and another OM. No intervention required. Continue medical therapy. Right groin site no complication. Okay to discharge as per cardiology. He can follow-up with me for cardiology as an outpatient in the next 2-3 weeks. Thank you for your consultation. Please call me if you have any questions. Jordyn Santos MD, FACP, FACC, FSCAI, FHRS, CCDS Interventional Cardiology Cardiac Electrophysiology Vascular Medicine and Endovascular Interventions Gabrielle SANTOS MD Sep 11, 2016 11:53 am
[2016-09-11 12:00] VITALS: BP 92/58
--- NOTE | 2016-09-11 12:07 | Progress Note-Hospitalist ---
Subjective HPI/CC On Admission Date Seen by Provider: Sep 11, 2016 Time Seen by Provider: 11:00 Mr. Banuelos is a 70-year-old white male roughly 3 weeks out from reported 5 vessel coronary artery bypass grafting done by Dr. Parkinson in [place]. reports that he been progressing well and over the weekend walked up to a mile and a half without symptoms. He currently doesn't have air conditioning and it became quite hot in his home. For 24 hours prior to his admission he was feeling lightheaded with shortness of breath aggravated by exertion. He has a history of ischemic cardiomyopathy and previously is not noted any anginal sounding symptoms. He has never described chest pain or discomfort. He has chronic venous insufficiency and lower extremity edema right greater than left denies that it been any worse than baseline. He has a past history of pulmonary embolism with several episodes. His last occurred in June when he had been noncompliant with L Kaplan. He reports she's been taking L Kaplan and has not missed any of his home medication. He is still on high-dose amiodarone for reasons unknown to him. He is not sure whether or not he had any problems with atrial fibrillation or other heart arrhythmias around his bypass surgery. I'm not aware of any past bouts prior to bypass of atrial fibrillation or ventricular arrhythmia. Subjective/Events-last exam patient is without complaint this morning. He does not have air conditioning at home and is very reticent to go home in the heat. He is been ambulating without problems otherwise. Objective Exam Vital Signs Vital Sign - Last 12Hours 09/08/16 09/08/16 09/08/16 17:39 21:00 21:01 Temp 98.9 Pulse 82 Resp 16 B/P (MAP) 121/87 Pulse Ox 99 O2 Delivery Room Air O2 Flow Rate 2.00 Capillary Refill : Less Than 3 Seconds General Appearance: No Apparent Distress HEENT: Normal ENT Inspection Neck: Normal Inspection Respiratory: Lungs Clear, Normal Breath Sounds, No Accessory Muscle Use, No Respiratory Distress Cardiovascular: Regular Rate, Rhythm, No Gallop, No Murmur Gastrointestinal: Normal Bowel Sounds, Non Tender, Soft Extremity: No Calf Tenderness, Pedal Edema, Other (healing incision) Neurologic/Psychiatric: Alert, Oriented x3, No Motor/Sensory Deficits, Normal Mood/Affect Results/Procedures Lab Laboratory Tests 7/15/17 03:48 Assessment/Plan Assessment and Plan Assess & Plan/Chief Complaint coronary artery disease status post bypass with a new occlusion of one of his grafts History of pulmonary emboli multiple on Elquis chronic indwelling Sandhu catheter Poor social situation Plan to continue to monitor patient for another 24 hours hopefully reinstating his air condition PREETI LEMOS MD Sep 11, 2016 12:07
[2016-09-11 16:08] VITALS: BP 132/76
[2016-09-11 20:00] VITALS: BP 122/63
[2016-09-11] MEDS: ATORVASTATIN 40 MG (LIPITOR) TABLET PO SCH (20:07)
[2016-09-12] VITALS: BP 125/68
[2016-09-12 04:00] VITALS: BP 125/85
[2016-09-12] MEDS: FUROSEMIDE 40 MG (LASIX) TAB PO SCH (08:32)
[2016-09-12] MEDS: KCL 20 MEQ TAB (K-DUR) PO SCH (08:32)
[2016-09-12] MEDS: AMIODARONE 200 MG (CORDARONE) TAB PO SCH (08:32)
[2016-09-12] MEDS: ASPIRIN E.C. 81 MG (ECOTRIN) TAB PO SCH (08:32)
[2016-09-12] MEDS: LOSARTAN 25 MG (COZAAR) TAB PO SCH (08:32)
[2016-09-12] MEDS: APIXABAN 5 MG (ELIQUIS) TABLET PO SCH (08:32)
[2016-09-12] MEDS: CLOPIDOGREL 75 MG (PLAVIX) TABLET PO SCH (08:32)
[2016-09-12] MEDS: CARVEDILOL 12.5 MG (COREG) TABLET PO SCH (08:32)
[2016-09-12 08:37] VITALS: BP 105/66
[2016-09-12 11:08] VITALS: BP 94/57
--- NOTE | 2016-09-12 13:54 | Progress Note-Hospitalist ---
Subjective HPI/CC On Admission Date Seen by Provider: Sep 12, 2016 Time Seen by Provider: 12:50 Mr. Banuelos is a 70-year-old white male roughly 3 weeks out from reported 5 vessel coronary artery bypass grafting done by Dr. Parkinson in [place]. reports that he been progressing well and over the weekend walked up to a mile and a half without symptoms. He currently doesn't have air conditioning and it became quite hot in his home. For 24 hours prior to his admission he was feeling lightheaded with shortness of breath aggravated by exertion. He has a history of ischemic cardiomyopathy and previously is not noted any anginal sounding symptoms. He has never described chest pain or discomfort. He has chronic venous insufficiency and lower extremity edema right greater than left denies that it been any worse than baseline. He has a past history of pulmonary embolism with several episodes. His last occurred in June when he had been noncompliant with L Kaplan. He reports she's been taking L Kaplan and has not missed any of his home medication. He is still on high-dose amiodarone for reasons unknown to him. He is not sure whether or not he had any problems with atrial fibrillation or other heart arrhythmias around his bypass surgery. I'm not aware of any past bouts prior to bypass of atrial fibrillation or ventricular arrhythmia. Subjective/Events-last exam patient is clinically ready to go home although he continues to have some anxiety about going home to an air-conditioned home. Otherwise he's been ambulating with is without complaint Review of Systems Neurological: Weakness Objective Exam Vital Signs Vital Sign - Last 12Hours 09/08/16 09/08/16 09/08/16 17:39 21:00 21:01 Temp 98.9 Pulse 82 Resp 16 B/P (MAP) 121/87 Pulse Ox 99 O2 Delivery Room Air O2 Flow Rate 2.00 Capillary Refill : Less Than 3 Seconds General Appearance: No Apparent Distress HEENT: Normal ENT Inspection Neck: Supple Respiratory: Lungs Clear, Normal Breath Sounds, No Accessory Muscle Use, No Respiratory Distress Cardiovascular: Regular Rate, Rhythm, No Gallop Gastrointestinal: Soft Extremity: Pedal Edema, Other (healing incisions post sternal and on his legs without evidence of infection) Neurologic/Psychiatric: Alert, Oriented x3, No Motor/Sensory Deficits, Normal Mood/Affect Assessment/Plan Assessment and Plan Assess & Plan/Chief Complaint coronary artery disease status post bypass with a new occlusion of one of his grafts History of pulmonary emboli multiple on Elquis chronic indwelling Sandhu catheter Poor social situation Plan to discharge today PREETI LEMOS MD Sep 12, 2016 1:54 pm
--- NOTE | 2016-09-12 14:51 | Cardiology Progress Note ---
Cardiology SOAP Progress Note Subjective: stable Objective: I&O/Vital Signs Vital Sign - Last 12Hours 09/12/16 09/12/16 09/12/16 09/12/16 04:00 07:00 08:37 11:08 Temp 98.8 98.7 98.5 Pulse 80 81 88 84 Resp 18 16 18 B/P (MAP) 125/85 105/66 94/57 Pulse Ox 96 97 94 O2 Delivery Room Air Room Air Room Air 09/12/16 13:00 Pulse 80 Intake and Output 09/12/16 00:00 Intake Total 2900 ml Output Total 2800 ml Balance 100 ml Weight (Pounds): 216 Weight (Ounces): 7.0 Weight (Calculated Kilograms): 98.791592 Side: right Groin site without hematoma: Yes Device Insertion Site: without hematoma Drainage: No Constitutional: No appears stated age, No AAO x 3, No apparent distress, No PERRL, No well-developed, No well-nourished, No other Respiratory: No accessory muscle use, No respiratory distress, No chest tender , No chest expansion is symmetric, No chest is bilaterally symmetric, No lungs clear to percussion, No lungs clear to auscultation, No crackles, No rhonchi, No rales, No stridor, No wheezing, No pleural rub, No other Cardiovascular: No regular rate-rhythm, No irregularly irregular, No extra beats, No parasternal heave is noted, No JVD, edema, No bradycardia, No tachycardia, No point of maximal impulse, No cardiac thrills are palpable, No S1 and S2, No gallop/S3, No gallop/S4, No diastolic murmur, No systolic murmur, No friction rub, No click, No other Gastrointestional: No tender, No soft, No round, No distended, No pulsatile mass, No organomegaly, No guarding, No rebound, No tenderness, No hernia, No mass, No audible bowel sounds, No abnormal bowel sounds, No abdominal bruits, No spleenomegaly, No other Extremities: No normal range of motion, No non-tender, No normal inspection, No pedal edema, No calf tenderness, No normal capillary refill, No pelvis stable , No calf tenderness, No inflammation, No pedal edema, No slow capillary refill , No swelling, No other, No abrasion, No clubbing, No cyanosis, No ecchymosis, No laceration, No no lower extremity edema bilateral, No significant edema, No tenderness, No wound Neurologic/Psychiatric: No senior dynamics crm developer II-XII nml as tested, No no motor/sensory deficits, No alert, No normal mood/affect, No oriented x 3, No abnormal cerebellar tests, No abnormal senior dynamics crm developer II-XII, No abnormal gait, No aphasia, No EOM palsy, No facial droop, No motor weakness, No sensory deficit, No depressed affect, No disoriented x 3, No other, No grossly intact, No power is 5/5 both on sides Skin: No normal color, No warm/dry, No cyanosis, No cool, No diaphoresis, No damp, No ecchymosis, No jaundice, No mottled, No pallor, No rash, No tattoos/ piercings, No ulcerations, No rash on exposed areas, No ulcerations on exposed areas, No other Results/Procedures: Labs Microbiology 09/08/16 Urine Culture - Final, Complete Gram Negative Mark A/P: Assessment/Dx: chest pain, shortness of breath, Coronary artery disease status post recent CABG. Bradycardia, status post recent permanent pacemaker. Plan: continue current medical therapy. Pharmacological nuclear stress test shows distal anterior/apical infarct with evidence of moderate sized earline-infarct ischemia. EF is 28 percent. Ischemic cardiomyopathy: Continue current aggressive medical therapy. Coronary angiography showed severe [place] three-vessel coronary artery disease. Patent GILLESPIE to the LAD, patent SVG graft to the distal RCA, patent SVG graft to OM. Occluded graft to first diagonal and another OM. No intervention required. Continue medical therapy. Okay to discharge as per cardiology. He can follow-up with me for cardiology as an outpatient in the next 2-3 weeks. Thank you for your consultation. Please call me if you have any questions. Jordyn Santos MD, FACP, FACC, FSCAI, FHRS, CCDS Interventional Cardiology Cardiac Electrophysiology Vascular Medicine and Endovascular Interventions Gabrielle SANTOS MD Sep 12, 2016 2:51 pm
--- NOTE | 2016-09-13 12:16 | CARDIAC CATHETERIZATION ---
PROCEDURE PHYSICIAN: RADHA HINOJOSA DATE OF PROCEDURE: 09/10/2016 CORONARY ANGIOGRAPHY REPORT INDICATION: Chest pain, shortness of breath, positive cardiac enzymes, recent CABG. PREOPERATIVE DIAGNOSIS: Chest pain, shortness of breath, positive cardiac enzymes, and recent CABG. POSTOPERATIVE DIAGNOSES: 1. Severe [place] 3 vessel disease. 2. Patent grafts to LAD, obtuse marginal artery, and RCA. 3. Occluded graft to another OM and first diagonal artery. HISTORY: Mr. Banuelos is a 70-year-old gentleman who has known history of distal left main disease and significant three-vessel disease. He was referred to [facility] for CABG 3 to 4 weeks ago. He presented into the ER with complaint of prolonged episode of chest pain with sweating and shortness of breath. Cardiac enzymes was positive; however there was no significant upward trend. Therefore, the question was whether this is tail end of the troponin after a previous event during the bypass. Therefore nuclear stress test was performed, which showed evidence of anterior infarct with periinfarct ischemia. Therefore coronary angiography was recommended. Initially the patient was hesitant to get coronary angiography however all the risks and complications were explained in detail at length and he finally agreed. PROCEDURE PERFORMED: 1. Coronary angiography. 2. Left heart catheterization. 3. GILLESPIE angiography. 4. Venous graft angiography. COMPLICATIONS: None. SPECIMENS: None. ESTIMATED BLOOD LOSS: 30 mL. Anticoagulation: None. Contrast: 195 mL of Omnipaque. Fluoroscopy time: 9.1 minutes. Fluoroscopy dose: 1333 mGy. PROCEDURE DETAILS: The patient was brought to the [facility] after informed consent was taken. All the risks and complications were explained in detail. He was draped and prepped in the usual sterile fashion. Access was gained in the right femoral artery with a 6-Armenian sheath. The following catheters were used: JR4 catheter, IMC catheter for GILLESPIE, JL4 catheter for left coronary system. FINDINGS: 1. Left heart catheterization showed aortic pressure 107-67 mmHg. LV pressure 115/1 mmHg, LVEDP 10 mmHg. Severe LV systolic dysfunction with an EF of 25 to 30%. Mid to distal anterior akinesis is noted with severe apical hypokinesis as well. Normal wall motion is noted in the inferior and basal anterior wall. There was no gradient across the aortic valve. 2. RCA shows KLEBER one to KLEBER 2 flow. There is severe tandem lesions in the proximal and mid RCA which are over 90% stenosis. Comparative flow is noted in the distal RCA. 3. There are two occluded saphenous vein grafts; one to likely to the first diagonal artery and secondary is likely to an obtuse marginal artery. 4. Patent graft to an obtuse marginal artery. No significant disease is noted. The obtuse marginal artery is small and diffusely diseased; however, there is no focal stenosis. 5. Patent SVG graft to the distal RCA/PDA. There is no proximal or distal anastomotic heart disease. There is no focal stenosis after the distal anastomotic site. 6. Very tortuous left subclavian artery is noted. We therefore switched to an IMC catheter. The GILLESPIE is very tortuous; however, there is no disease in the graft. The distal anastomotic site is normal and attaches to the mid LAD with reasonable flow distally. There is no focal stenosis noted distally. 7. Left main: Moderate to severe distal left main disease is noted. There is likely severe disease in the proximal left circumflex artery. Severe disease is noted in the proximal segment of the LAD as well. Competitive flow is noted in the LAD mid to distal LAD. There is first diagonal artery, which has ostial disease. IMPRESSION/CONCLUSION: 1. Severe 3 vessel [place] coronary artery disease with distal left main disease. 2. Patent GILLESPIE to the mid LAD, patent SVG graft to obtuse marginal artery and patent SVG graft to the distal RCA. 3. Occluded graft to first diagonal artery as well as another obtuse marginal artery. 4. Severe LV systolic dysfunction with distal anterior akinesis is noted. No intervention was recommended. Job ID: [id number] Dictated Date: 09/12/2016 16:32:14 Corn Miller Date: 09/13/2016 11:51:57 / thea PHILLIPS
--- NOTE | 2016-09-23 08:33 | Discharge Summary-Hospitalist ---
Diagnosis/Chief Complaint Date of Admission Sep 08, 2016 at 19:40 Date of Discharge Sep 12, 2016 at 14:50 Discharge Date: Sep 12, 2016 Discharge Time: 1500 Admission Diagnosis 1. Non-ST segment elevation UT with abnormal nuclear medicine stress test suggesting there is still myocardium at risk. After discussion with the patient he now states that he will go through with recommended cardiac catheterization per Dr. Santos tomorrow. Currently he feels well. While he denies chest discomfort this has not been a symptom he is experienced with ischemic heart disease in the past. We discussed that his warts of breath with lightheadedness may very well be an anginal equivalent. 2. Neurogenic bladder with chronic indwelling Sandhu catheter. The patient always has bacteriuria and pyuria. He does not feel like he has a urinary tract infection. His urine is slightly yellowish but clear in the bag. We will hold off treatment although I expect him to have multiple cultured bacteria with sensitivities. This may need to be reconsidered if the patient undergoes stent placement. 3. Past history of multiple DVTs with chronic lower extremity venous insufficiency and several episodes of symptomatic pulmonary embolism. The patient has only had recurrences when he is been off of anticoagulant therapy which had been due to intermittent noncompliance in the past. Currently has been taking medication in the form of Eliquis regularly and understands the importance of continuing. Discharge Diagnosis coronary artery disease status post bypass with a new occlusion of one of his grafts History of pulmonary emboli multiple on Elquis chronic indwelling Sandhu catheter Poor social situation Plan to discharge today Reason Hospital Visit/Course Mr. Banuelos is a 70-year-old white male roughly 3 weeks out from reported 5 vessel coronary artery bypass grafting done by Dr. Parkinson in [place]. reports that he been progressing well and over the weekend walked up to a mile and a half without symptoms. He currently doesn't have air conditioning and it became quite hot in his home. For 24 hours prior to his admission he was feeling lightheaded with shortness of breath aggravated by exertion. He has a history of ischemic cardiomyopathy and previously is not noted any anginal sounding symptoms. He has never described chest pain or discomfort. He has chronic venous insufficiency and lower extremity edema right greater than left denies that it been any worse than baseline. He has a past history of pulmonary embolism with several episodes. His last occurred in June when he had been noncompliant with L Kaplan. He reports she's been taking L Kaplan and has not missed any of his home medication. He is still on high-dose amiodarone for reasons unknown to him. He is not sure whether or not he had any problems with atrial fibrillation or other heart arrhythmias around his bypass surgery. I'm not aware of any past bouts prior to bypass of atrial fibrillation or ventricular arrhythmia. Discharge Summary Procedures Cardiac cath stress test Consultations Dr. Santos Discharge Physical Examination Allergies: Coded Allergies: metoprolol (Unverified Allergy, Unknown, 09/18/14) "sunburn" rivaroxaban (Unverified Allergy, Unknown, 12/18/14) VOMITING/DIARRHEA General Appearance: Alert, Oriented X3, Cooperative Respiratory: Clear to Auscultation Cardiovascular: Regular Rate Abdominal: Soft Neuro: Normal Gait Psych/Mental Status: Mental Status NL Hospital Course Pt admitted with NSTEMI- heart cath revealed occlusion of graft to the OM and first diagonal :;patent grafts to LAD,OM, RCA, severe systolic dysfunction, severe [place] vessel disease. No intervention done. D/c in stable condition Labs (last 24 hrs) Microbiology 09/08/16 Urine Culture - Final, Complete Gram Negative Mark Discharge Home Medications: Active Scripts Active Reported Aspirin EC (Aspirin) 325 Mg Tablet.dr 325 Mg PO DAILY Eliquis (Apixaban) 5 Mg Tablet 5 Mg PO BID Losartan Potassium 25 Mg Tablet 25 Mg PO DAILY Klor-Con M20 (Potassium Chloride) 20 Meq Tab.er.prt 20 Meq PO DAILY Carvedilol 12.5 Mg Tablet 12.5 Mg PO BID Furosemide 40 Mg Tablet 40 Mg PO DAILY Amiodarone HCl 200 Mg Tablet 400 Mg PO BID TAKES 2 (200MG) TABLETS Lovastatin 10 Mg Tablet 10 Mg PO DAILY Condition at discharge stable Instructions to patient/family Please see electonic discharge instructions given to patient. Clinical Quality Measures DVT/VTE Risk/Contraindication: Risk Factor Score Per Nursin RFS Level Per Nursing on Admit: 4+=Very High PREETI LEMOS MD Sep 23, 2016 08:33
[2016-09-23] MEDS ORDERED: AMOX500C2 PO (13:04)
[2016-09-23] MEDS ORDERED: CIPR-225 PO (13:04)
[2016-12-21] MEDS ORDERED: LOVA20TA2 PO (08:23)
[2016-12-21] MEDS ORDERED: MULT-35 PO (08:27)
[2016-12-21] MEDS ORDERED: OMG1KC PO (08:27)
[2016-12-23] MEDS ORDERED: CARV3.122 PO (09:20)
[2016-12-23] MEDS ORDERED: MECL-106 PO (09:20)
[2016-12-23] MEDS ORDERED: FLDR.1T PO (09:20)
[2016-12-23] MEDS ORDERED: CEPH-507 PO (09:20)
[2016-12-24] MEDS ORDERED: WALK1EAC23 MC (12:54)
[2016-12-30] MEDS ORDERED: LOSA25TA21 PO (10:27)
[2016-12-31] MEDS ORDERED: AMOX1TAB12 PO (12:56)
[2017-01-06] MEDS ORDERED: LEVO750T39 PO (10:14)
[2017-01-06] MEDS ORDERED: ASPI-479 PO (10:14)
[2017-01-06] MEDS ORDERED: NEBI2.5T5 PO (11:26)
== END 2016-09-12 14:50 | disposition home or self-care (01) | DRG 281 ==
LOC: ER 17:28 → EDUNIT# 17:28 → 4TH 19:40 → ENPENDDIS 09-12 15:00
PROVIDERS: ADMIT Internal Medicine; ATTEND Internal Medicine
PROC: 4A023N7 Measurement of Cardiac Sampling and Pressure, Left Heart, Percutaneous Approach (ICD-10-PCS; principal; 2016-09-10)
PROC: B2151ZZ Fluoroscopy of Left Heart using Low Osmolar Contrast (ICD-10-PCS; 2016-09-10)
PROC: B2181ZZ Fluoroscopy of Left Internal Mammary Bypass Graft using Low Osmolar Contrast (ICD-10-PCS; 2016-09-10)
PROC: B2131ZZ Fluoroscopy of Multiple Coronary Artery Bypass Grafts using Low Osmolar Contrast (ICD-10-PCS; 2016-09-10)
PROC: B2111ZZ Fluoroscopy of Multiple Coronary Arteries using Low Osmolar Contrast (ICD-10-PCS; 2016-09-10)
DX: I25.110 Atherosclerotic heart disease of native coronary artery with unstable angina pectoris (principal); I25.710 Atherosclerosis of autologous vein coronary artery bypass graft(s) with unstable angina pectoris; I21.4 Non-ST elevation (NSTEMI) myocardial infarction; N31.9 Neuromuscular dysfunction of bladder, unspecified; I87.2 Venous insufficiency (chronic) (peripheral); E78.00 Pure hypercholesterolemia, unspecified; I10 Essential (primary) hypertension; R01.1 Cardiac murmur, unspecified; D64.9 Anemia, unspecified; Z95.1 Presence of aortocoronary bypass graft; Z79.01 Long term (current) use of anticoagulants; Z95.0 Presence of cardiac pacemaker; Z86.711 Personal history of pulmonary embolism; Z86.718 Personal history of other venous thrombosis and embolism
CPT/HCPCS: 36415; 71010; 78452; 80048; 80053; 80061; 81000; 83735; 83874; 83880; 84484; 85007; 85025; 85027; 85610; 85730; 87077; 87088; 93005; 93017; 93041; 93306; 93459; 96374

== ENCOUNTER 2016-09-16 03:59 | Emergency (ER) | payer MEDICARE, MEDICAID ==
[~2016-09-16] VITALS: Ht 180.3 cm; Wt 94.8 kg
[~2016-09-16 03:59] MED LIST changes: +AMIO200T2 PO; +CARV12.53 PO; +FURO40TA4 PO; +LOSA25TA21 PO; +METO-270 PO; -METO-387 PO; +POTA20TA8 PO
[2016-09-16] MEDS ORDERED: LIDOCAINE UROJET 2% GEL 10 ML PKG ONE (04:17)
--- NOTE | 2016-09-16 04:20 | ED GU-Male ---
General Chief Complaint: -Male Stated Complaint: CAN'T URINATE Nursing Triage Note: PT REPORTS HE IS UNABLE TO URINATE. HE HAD AN INDWELLING CATHETER FOR 3.5 YEARS, REMOVED YESTERDAY AT APPROX 1300. HE HAS BEEN UNABLE TO VOID OR SELF-CATH EFFECTIVELY SINCE IT WAS DC'D. Source: patient Exam Limitations: no limitations History of Present Illness Time seen by provider: 04:06 Initial Comments Here with report of being unable to urinate. He had an indwelling catheter for the last 3 Years. He is transitioning to self catheter but does not have all his supplies jet. His catheter was removed yesterday and he has been unable to void since. Denies other concerns. Timing/Duration: yesterday, getting worse Severity/Quality: moderate Location: suprapubic Radiation: none Activities at Onset: none Associated Symptoms: No fever/chills, No nausea/vomiting Allergies and Home Medications Allergies Coded Allergies: metoprolol (Unverified Allergy, Unknown, 09/18/14) "sunburn" rivaroxaban (Unverified Allergy, Unknown, 12/18/14) VOMITING/DIARRHEA Home Medications Amiodarone HCl 200 Mg Tablet, 400 MG PO BID, (Reported) TAKES 2 (200MG) TABLETS Apixaban 5 Mg Tablet, 5 MG PO BID, (Reported) Aspirin 325 Mg Tablet.dr, 325 MG PO DAILY, (Reported) Carvedilol 12.5 Mg Tablet, 12.5 MG PO BID, (Reported) Furosemide 40 Mg Tablet, 40 MG PO DAILY, (Reported) Losartan Potassium 25 Mg Tablet, 25 MG PO DAILY, (Reported) Lovastatin 10 Mg Tablet, 10 MG PO DAILY, (Reported) Potassium Chloride 20 Meq Tab.er.prt, 20 MEQ PO DAILY, (Reported) Constitutional: see HPI, No chills, No fever Respiratory: no symptoms reported Cardiovascular: no symptoms reported Genitourinary: see HPI, denies dysuria Psychiatric/Neurological: No Symptoms Reported Past Tmjqkse-Nmpagl-Lbtncp Hx Patient Social History Alcohol Use: Denies Use Recreational Drug Use: No Smoking Status: Never a Smoker 2nd Hand Smoke Exposure: No Recent Foreign Travel: No Contact w/Someone Who Travel: No Recent Infectious Disease Expo: No Recent Hopitalizations: Yes Immunizations Up To Date Tetanus Booster (TDap): Unknown PED Vaccines UTD: No Date of Pneumonia Vaccine: Feb 28, 2013 Date of Influenza Vaccine: Apr 18, 2014 Seasonal Allergies Seasonal Allergies: No Surgeries HX Surgeries: Yes (BILATERAL CATARACTS) Surgeries: CABG, Eye Surgery, Pacemaker, Vascular Surgery Respiratory Hx Respiratory Disorders: Yes (PE 03/15/14) Respiratory Disorders: Pulmonary Embolism Cardiovascular Hx Cardiac Disorders: Yes (snypocal episode 09/17/14; DVT WITH P.E. 2015--ON ELIQUIS) Cardiac Disorders: Coronary Artery Disease, Deep Vein Thrombosis, Heart Murmur , High Cholesterol, Hypertension Neurological Hx Neurological Disorders: No Reproductive System Hx Reproductive Disorders: No Genitourinary Hx Genitourinary Disorders: Yes (obstructive uropathy with chronic solo cathater) Genitourinary Disorders: Benign Prostatic Hyperpl, Prostate Problems, Renal Failure, Neurogenic Bladder, UTI-Chronic Gastrointestinal Hx Gastrointestinal Disorders: No Musculoskeletal Hx Musculoskeletal Disorders: Yes (ANKLE FX) Musculoskeletal Disorders: Fractures Endocrine Hx Endocrine Disorders: No HEENT HX ENT Disorders: Yes (bilateral cataracts removed) HEENT Disorders: Cataract Loss of Vision: Denies Hearing Impairment: Denies Cancer Hx Cancer: No Psychosocial Hx Psychiatric Problems: No Integumentary HX Skin/Integumentary Disorder: No Blood Transfusions Hx Blood Disorders: No Reviewed Nursing Assessment Reviewed/Agree w Nursing PMH: Yes Family Medical History Family Medial History: Cancer (LINING OF ABD CAVITY, AT AGE 80) 03 MOTHER Chest pain (FATHER OF ME AT AGE 83) 03 FATHER Congestive heart failure 03 FATHER Family history: Arthritis 03 MOTHER Family history: Cardiovascular disease 03 FATHER Heart disease 03 FATHER Hypercholesterolemia 03 FATHER 03 MOTHER Myocardial infarction 03 FATHER Prostate cancer (DIAGNOSED AT 70 OR 73 PER PT) 03 FATHER Stroke 09 SISTER Visual impairment (SISTER WEARS GLASSES ) 09 SISTER Physical Exam Vital Signs Vital Sign - Last 12Hours 09/16/16 04:07 Temp 98.6 Pulse 84 Resp 18 B/P (MAP) 105/73 Capillary Refill : Less Than 3 Seconds General Appearance: WD/WN, no apparent distress Cardiovascular: regular rate, rhythm, no murmur Respiratory: lungs clear, normal breath sounds Gastrointestinal: non tender, soft Neurologic/Psychiatric: alert, oriented x 3 Progress/Results/Core Measures Results/Orders Vital Signs/I&O Vital Sign - Last 12Hours 09/16/16 04:07 Temp 98.6 Pulse 84 Resp 18 B/P (MAP) 105/73 Blood Pressure Mean: 84 Progress Note : Progress Note Seen and evaluated. Indwelling urinary catheter placed by nursing. Discharged home with return precautions. Patient verbalize understanding instructions and agreement with plan. Departure Impression Impression: Primary Impression: Urinary retention Additional Impression: Solo catheter placement Disposition: 01 HOME, SELF-CARE Condition: Improved Departure-Patient Inst. Decision time for Depature: 04:19 Referrals: ARNEL REZA MD (PCP/Family) Primary Care Physician Patient Instructions: How to Care for Your Solo Catheter, Male, Urinary Retention (DC) Add. Discharge Instructions: All discharge instructions reviewed with patient and/or family. Voiced understanding. Follow-up with your DrPablo in a few days for recheck. When you have your supplies available for self-catheterization, follow-up with your DrPablo for Solo catheter removal and self catheterization training. Return for other concerns as needed. MARKIE FREIRE MD Sep 16, 2016 04:20
[2016-09-16 04:54] VITALS: BP 110/68
[2016-09-16 05:01] LABS: BILIRUBIN,URINE NEGATIVE (NEGATIVE); KETONES,URINE NEGATIVE (NEGATIVE); LEUKOCYTE ESTERASE ,URINE 3+ (NEGATIVE); NITRITE,URINE POSITIVE (NEGATIVE); PH,URINE 6 (5-9); PROTEIN,URINE 2+ (NEGATIVE); UROBILINOGEN,URINE NORMAL (NORMAL)
[2016-09-16 05:06] LABS: WBC,URINE 25-50 /HPF
== END 2016-09-16 04:54 | disposition home or self-care (01) ==
LOC: EDUNIT# 03:59 → ER 04:01
DX: R33.9 Retention of urine, unspecified (principal); I25.10 Atherosclerotic heart disease of native coronary artery without angina pectoris; E78.00 Pure hypercholesterolemia, unspecified; I10 Essential (primary) hypertension; Z46.6 Encounter for fitting and adjustment of urinary device; Z87.81 Personal history of (healed) traumatic fracture; Z86.718 Personal history of other venous thrombosis and embolism; Z86.711 Personal history of pulmonary embolism; Z95.1 Presence of aortocoronary bypass graft; Z95.0 Presence of cardiac pacemaker; Z79.82 Long term (current) use of aspirin; Z79.01 Long term (current) use of anticoagulants
CPT/HCPCS: 51702; 81000; 87088; 87186

== ENCOUNTER 2017-02-18 06:49 | Emergency (ER) | payer MEDICARE, MEDICAID ==
[~2017-02-18] VITALS: Ht 180.3 cm; Wt 93.9 kg
[~2017-02-18 06:49] MED LIST changes: +AMOX1TAB12 PO; +AMOX500C2 PO; +ASPI-479 PO; +CARV3.122 PO; +CEPH-507 PO; +FLDR.1T PO; +LEVO750T39 PO; +LOVA20TA2 PO; +MECL-106 PO; -METO-270 PO; +METO-387 PO; +MULT-35 PO; +NEBI2.5T5 PO; +WALK1EAC23 MC
[2017-02-18 07:17] LABS: BASOPHILS # (AUTO) 0.1 10^3/uL (0.0-0.1); BASOPHILS % (AUTO) 2 % (0-10); EOSINOPHILS # (AUTO) 0.1 10^3/uL (0.0-0.3); EOSINOPHILS % (AUTO) 2 % (0-10); LYMPHOCYTES # (AUTO) 1.8 X 10^3 (1.0-4.0); LYMPHOCYTES % (AUTO) 39 % (12-44); MEAN CORPUSCULAR HEMOGLOBIN 26 PG (25-34); MEAN CORPUSCULAR HGB CONC 32 G/DL (32-36); MEAN CORPUSCULAR VOLUME 82 FL (80-99); MEAN PLATELET VOLUME 10.5 FL (7.4-10.4); MONOCYTES # (AUTO) 0.6 X 10^3 (0.0-1.0); MONOCYTES % (AUTO) 13 % (0-12); NEUTROPHILS % (AUTO) 44 % (42-75); PLATELET COUNT 234 10^3/uL (130-400); RED BLOOD COUNT 4.58 10^6/uL (4.35-5.85); RED CELL DISTRIBUTION WIDTH 18.9 % (10.0-14.5); WHITE BLOOD COUNT 4.6 10^3/uL (4.3-11.0)
--- NOTE | 2017-02-18 07:26 | Diagnostic Imaging Report ---
INDICATION: Coronary artery disease, arrhythmia. Portable chest 7:13 a.m. There are postop changes from CABG surgery. There is a dual-chamber pacemaker. Heart size and pulmonary vascularity are normal. Lungs are clear. There are no effusions or pneumothoraces. There is a small hiatal hernia. IMPRESSION: No acute abnormalities in the chest. Dictated by: Dictated on workstation # [id number]
[2017-02-18 07:29] LABS: ALANINE AMINOTRANSFERASE 16 U/L (0-55); ALBUMIN 3.9 GM/DL (3.2-4.5); ANION GAP 10 MMOL/L (5-14); ASPARTATE AMINO TRANSFERASE 19 U/L (5-34); BILIRUBIN,TOTAL 0.7 MG/DL (0.1-1.0); BLOOD UREA NITROGEN 14 MG/DL (7-18); BUN/CREATININE RATIO 11; CALCIUM 9.2 MG/DL (8.5-10.1); CARBON DIOXIDE 23 MMOL/L (21-32); CHLORIDE 107 MMOL/L (98-107); CREATININE SERUM 1.27 MG/DL (0.60-1.30); GFR ESTIMATED 56; GLUCOSE 89 MG/DL (70-105); POTASSIUM 4.1 MMOL/L (3.6-5.0); SODIUM 140 MMOL/L (135-145); TOTAL PROTEIN 6.7 GM/DL (6.4-8.2)
[2017-02-18 07:35] LABS: TROPONIN I < 0.30 NG/ML (<0.30)
--- NOTE | 2017-02-18 07:36 | ED Cardiac General ---
History of Present Illness General Chief Complaint: Dizziness/Syncope Stated Complaint: LIGHTHEADED Nursing Triage Note: Pt c/o dizziness upon standing, has pacemaker but heartrate varies from upper 20's to 80's. Source: patient Exam Limitations: no limitations History of Present Illness Time seen by provider: 07:31 Initial Comments The patient is a 71-year-old white male known to me. He has had numerous recent admissions. He has had a previous cardiac Bypass surgery and pacemaker implantation. He reports that this morning he felt very lightheaded and woozy as if he might pass out. This was worse if he were to stand up or attempts to walk. He presently lives at [facility]. They reported that his pulse was alternately between 30 and 80. The tracing from EMS showed a left bundle- branch block and a bigeminal rhythm. He denies chest pain. He also notes a bulge below the xiphoid on standing. It resolves when lying down. It is not painful. Timing/Duration: 1-3 hours Severity: mild Activities at Onset: activity Prior CP/Workup: cardiac cath, other (cardiothoracic surgery and pacemaker) NTG SL COLLECTOR OF PORT: No ASA po COLLECTOR OF PORT: No Allergies and Home Medications Allergies Coded Allergies: metoprolol (Unverified Allergy, Unknown, 09/18/14) "sunburn" rivaroxaban (Unverified Allergy, Unknown, 12/18/14) VOMITING/DIARRHEA Home Medications Apixaban 5 Mg Tablet, 5 MG PO BID, (Reported) Aspirin 81 Mg Tablet.dr, 81 MG PO DAILY, #30 Prescribed by: ROBE LOMBARDI on 01/06/17 1014 Fludrocortisone Acetate 0.1 Mg Tab, 0.1 MG PO DAILY, #30 Prescribed by: LIZA PIMENTEL on 12/23/16 0920 Levofloxacin 750 Mg Tablet, 750 MG PO DAILY@1100, #5 Prescribed by: ROBE LOMBARDI on 01/06/17 1014 Lovastatin 20 Mg Tablet, 10 MG PO HS, (Reported) TAKES 1/2 (20MG) TABLET Multivitamin 1 Each Tablet, 1 TAB PO DAILY, (Reported) Nebivolol HCl 2.5 Mg Tablet, 2.5 MG PO DAILY, #30 Prescribed by: NILSA EATON on 01/06/17 1126 [place] 3 Polyunsat Fatty Acids 1,000 Mg Cap, 1,000 MG PO DAILY, (Reported) Review of Systems Constitutional: see HPI EENTM: No Symptoms Reported Respiratory: No Symptoms Reported Cardiovascular: See HPI, Irregular Heart Rate, Lightheadedness Gastrointestinal: No Symptoms Reported Genitourinary: No Symptoms Reported Musculoskeletal: no symptoms reported Skin: no symptoms reported Psychiatric/Neurological: No Symptoms Reported Endocrine: No Symptoms Reported Hematologic/Lymphatic: No Symptoms Reported Past Gsaznjj-Inbwny-Iybjky Hx Patient Social History Alcohol Use: Occasionally Uses Number of Drinks Today: AA Alcohol Beverage of Choice: Beer Recreational Drug Use: Yes (etoh) Smoking Status: Never a Smoker 2nd Hand Smoke Exposure: Yes (Father was a heavy smoker in his youth) Recent Foreign Travel: No Contact w/Someone Who Travel: No Recent Infectious Disease Expo: No Recent Hopitalizations: No Immunizations Up To Date Tetanus Booster (TDap): Unknown PED Vaccines UTD: No Date of Pneumonia Vaccine: Feb 28, 2013 Date of Influenza Vaccine: Dec 27, 2016 Seasonal Allergies Seasonal Allergies: No Surgeries History of Surgeries: Yes Surgeries: CABG, Eye Surgery, Pacemaker, Vascular Surgery Respiratory History of Respiratory Disorde: Yes Respiratory Disorders: Pulmonary Embolism Currently Using CPAP: No Currently Using BIPAP: No Cardiovascular History of Cardiac Disorders: Yes Cardiac Disorders: Cardiomyopathy, Coronary Artery Disease, Deep Vein Thrombosis, Heart Murmur, High Cholesterol, Hypertension, Irregular Heartbeat Neurological History of Neurological Disord: No Reproductive System Hx Reproductive Disorders: No Genitourinary History of Genitourinary Disor: Yes (RETENTION) Genitourinary Disorders: Benign Prostatic Hyperpl, Prostate Problems, Renal Failure, Neurogenic Bladder, UTI-Chronic Gastrointestinal History of Gastrointestinal Di: No Musculoskeletal History of Musculoskeletal Dis: Yes (L hip fx, right ankle broken) Musculoskeletal Disorders: Fractures Endocrine History of Endocrine Disorders: No HEENT History of HEENT Disorders: Yes HEENT Disorders: Cataract Loss of Vision: Denies Hearing Impairment: Denies Cancer History of Cancer: No Psychosocial History of Psychiatric Problem: No Integumentary History of Skin or Integumenta: No Blood Transfusions History of Blood Disorders: No Family Medical History Significant Family History: Cancer, CAD Over 55 Years Old, CVA Family Medial History: Cancer (LINING OF ABD CAVITY, AT AGE 80) 03 MOTHER Chest pain (FATHER OF [place] AT AGE 83) 03 FATHER Congestive heart failure 03 FATHER Family history: Arthritis 03 MOTHER Family history: Cardiovascular disease 03 FATHER Heart disease 03 FATHER Hypercholesterolemia 03 FATHER 03 MOTHER Myocardial infarction 03 FATHER Prostate cancer (DIAGNOSED AT 70 OR 73 PER PT) 03 FATHER Stroke 09 SISTER Visual impairment (SISTER WEARS GLASSES ) 09 SISTER No Family History of: Abdominal aortic aneurysm Harrison's disease Alcoholism Aphasia Cancer of colon Cataract Congenital heart disease Cystic fibrosis Dementia Dysphagia Family history: Allergy Family history: Alzheimer's disease Family history: Asthma Family history: Breast disease Family history: Coronary thrombosis Family history: Diabetes mellitus Family history: Gastrointestinal disease Family history: Glaucoma Family history: Hypertension Family history: Osteoporosis Family history: Thyroid disorder Headache Hearing loss Hereditary disease History of - anemia History of - disorder History of - respiratory disease History of drug abuse Human immunodeficiency virus (HIV) seropositivity Infertile Kidney disease Malignant neoplasm of lung Parkinson's disease Psychotic disorder Seizure disorder Tuberculosis Physical Exam Vital Signs Vital Sign - Last 12Hours 02/18/17 06:55 Temp 98.4 Pulse 73 Resp 18 B/P (MAP) 143/64 (90) Pulse Ox 98 O2 Delivery Room Air Capillary Refill : Less Than 3 Seconds General Appearance: No Apparent Distress, WD/WN HEENT: Normal ENT Inspection Neck: Normal Inspection Respiratory: Chest Non Tender, Lungs Clear, Normal Breath Sounds, No Accessory Muscle Use, No Respiratory Distress Cardiovascular: Other (regularly irregular) Extremity: Pedal Edema (bilateral 1-2+) Neurologic/Psychiatric: Alert, Oriented x3, No Motor/Sensory Deficits, Normal Mood/Affect Skin: Normal Color, Warm/Dry Other comments A good sized incisional hernia is noted on Valsalva at the subxiphoid distal sternotomy incision. Electrocardiogram shows a left bundle branch block with ventricular bigeminy. The palpable pulse is in the 30s. No pacemaker spikes are seen. Progress/Results/Core Measures Results/Orders Lab Results Laboratory Tests Test 02/18/17 06:55 Range/Units White Blood Count 4.6 4.3-11.0 10^3/uL Red Blood Count 4.58 4.35-5.85 10^6/uL Hemoglobin 12.1 L 13.3-17.7 G/DL Hematocrit 37 L 40-54 % Mean Corpuscular Volume 82 80-99 FL Mean Corpuscular Hemoglobin 26 25-34 PG Mean Corpuscular Hemoglobin Concent 32 32-36 G/DL Red Cell Distribution Width 18.9 H 10.0-14.5 % Platelet Count 234 130-400 10^3/uL Mean Platelet Volume 10.5 H 7.4-10.4 FL Neutrophils (%) (Auto) 44 42-75 % Lymphocytes (%) (Auto) 39 12-44 % Monocytes (%) (Auto) 13 H 0-12 % Eosinophils (%) (Auto) 2 0-10 % Basophils (%) (Auto) 2 0-10 % Neutrophils # (Auto) 2.0 1.8-7.8 X 10^3 Lymphocytes # (Auto) 1.8 1.0-4.0 X 10^3 Monocytes # (Auto) 0.6 0.0-1.0 X 10^3 Eosinophils # (Auto) 0.1 0.0-0.3 10^3/uL Basophils # (Auto) 0.1 0.0-0.1 10^3/uL Sodium Level 140 135-145 MMOL/L Potassium Level 4.1 3.6-5.0 MMOL/L Chloride Level 107 98-107 MMOL/L Carbon Dioxide Level 23 21-32 MMOL/L Anion Gap 10 5-14 MMOL/L Blood Urea Nitrogen 14 7-18 MG/DL Creatinine 1.27 0.60-1.30 MG/DL Estimat Glomerular Filtration Rate 56 BUN/Creatinine Ratio 11 Glucose Level 89 70-105 MG/DL Calcium Level 9.2 8.5-10.1 MG/DL Total Bilirubin 0.7 0.1-1.0 MG/DL Aspartate Amino Transf (AST/SGOT) 19 5-34 U/L Alanine Aminotransferase (ALT/SGPT) 16 0-55 U/L Alkaline Phosphatase 90 40-136 U/L Troponin I < 0.30 <0.30 NG/ML Total Protein 6.7 6.4-8.2 GM/DL Albumin 3.9 3.2-4.5 GM/DL My Orders Orders - ERWIN DALLAS MD Cbc With Automated Diff (02/18/17 06:57) Comprehensive Metabolic Panel (02/18/17 06:57) Troponin I (02/18/17 06:57) Ua Culture If Indicated (02/18/17 06:57) Chest 1 View, Ap/Pa Only (02/18/17 06:57) Ekg Tracing (02/18/17 06:57) Vital Signs/I&O Vital Sign - Last 12Hours 12/22/17 06:55 Temp 98.4 Pulse 73 Resp 18 B/P (MAP) 143/64 (90) Pulse Ox 98 O2 Delivery Room Air Blood Pressure Mean: 90 Departure Communication (Admissions) Progress Notes Spoke to LUIS CARLOS Costello medical technical writer electronics test engineer at [phone]. He recommended calling [employer] to interrogate the pacer and potentially to increase the rate to achieve better perfusion. Spoke to [employer] tach at [phone]. They will call and believe this to be a reasonable approach. Subsequently they arrived and performed interrogation. No arrhythmias were noted the pacemaker was adjusted ultimately to a rate of 80 with much better perfusion and only an occasional PVC. The patient reports he feels much better as well. Impression Impression: Primary Impression: ventricular bigeminy with hypoperfusion Disposition: 01 HOME, SELF-CARE Condition: Improved Departure-Patient Inst. Decision time for Depature: 10:39 Referrals: [facility] (PCP/Family) Primary Care Physician Add. Discharge Instructions: All discharge instructions reviewed with patient and/or family. Voiced understanding. [facility] under [facility] previous orders. Personal physician follow- ups as previously scheduled. ERWIN DALLAS MD Feb 18, 2017 07:36
[2017-02-18 10:43] LABS: BILIRUBIN,URINE NEGATIVE (NEGATIVE); KETONES,URINE NEGATIVE (NEGATIVE); LEUKOCYTE ESTERASE ,URINE 3+ (NEGATIVE); NITRITE,URINE NEGATIVE (NEGATIVE); PH,URINE 7 (5-9); PROTEIN,URINE 2+ (NEGATIVE); UROBILINOGEN,URINE NORMAL (NORMAL)
[2017-02-18 10:49] VITALS: BP 140/72
[2017-02-18 10:53] LABS: WBC,URINE >100 /HPF
== END 2017-02-18 10:56 | disposition home or self-care (01) ==
LOC: EDUNIT# 06:49 → ER 06:51
DX: I49.3 Ventricular premature depolarization (principal); I24.8 Other forms of acute ischemic heart disease; I10 Essential (primary) hypertension; I42.9 Cardiomyopathy, unspecified; I25.10 Atherosclerotic heart disease of native coronary artery without angina pectoris; E78.00 Pure hypercholesterolemia, unspecified; Z95.0 Presence of cardiac pacemaker; Z95.1 Presence of aortocoronary bypass graft; Z79.82 Long term (current) use of aspirin; Z79.01 Long term (current) use of anticoagulants; Z77.22 Contact with and (suspected) exposure to environmental tobacco smoke (acute) (chronic); Z86.718 Personal history of other venous thrombosis and embolism; N40.0 Benign prostatic hyperplasia without lower urinary tract symptoms; Z87.440 Personal history of urinary (tract) infections; Z80.0 Family history of malignant neoplasm of digestive organs; Z82.49 Family history of ischemic heart disease and other diseases of the circulatory system; Z80.42 Family history of malignant neoplasm of prostate
CPT/HCPCS: 36415; 71010; 80053; 81000; 84484; 85025; 87088; 87186; 93005

== ENCOUNTER 2017-07-26 16:05 | Day surgery (SDC) | payer MEDICARE, MEDICAID ==
[~2017-07-26] VITALS: Ht 180.3 cm; Wt 90.0 kg
[2017-07-26] VITALS (12 sets, daily range): BP systolic 70–138; BP diastolic 42–94
[2017-07-26] MEDS ORDERED: NS IV 1000 ML 1,000 ML IV ONE (16:24)
[2017-07-26 16:28] LABS: BASOPHILS % (AUTO) 1 % (0-10); EOSINOPHILS # (AUTO) 0.1 10^3/uL (0.0-0.3); EOSINOPHILS % (AUTO) 1 % (0-10); HEMATOCRIT 27 % (40-54); HEMOGLOBIN 8.4 G/DL (13.3-17.7); LYMPHOCYTES # (AUTO) 1.5 X 10^3 (1.0-4.0); LYMPHOCYTES % (AUTO) 32 % (12-44); MEAN CORPUSCULAR HEMOGLOBIN 24 PG (25-34); MEAN CORPUSCULAR HGB CONC 31 G/DL (32-36); MEAN CORPUSCULAR VOLUME 75 FL (80-99); MEAN PLATELET VOLUME 10.7 FL (7.4-10.4); MONOCYTES # (AUTO) 0.5 X 10^3 (0.0-1.0); MONOCYTES % (AUTO) 11 % (0-12); NEUTROPHILS # (AUTO) 2.6 X 10^3 (1.8-7.8); NEUTROPHILS % (AUTO) 55 % (42-75); PLATELET COUNT 237 10^3/uL (130-400); RED BLOOD COUNT 3.58 10^6/uL (4.35-5.85); RED CELL DISTRIBUTION WIDTH 16.2 % (10.0-14.5); WHITE BLOOD COUNT 4.7 10^3/uL (4.3-11.0)
[2017-07-26] MEDS ORDERED: ASPIRIN 81 MG CHEW (CHILDREN'S ASA) PO ONE (16:30)
[2017-07-26 16:42] LABS: INR 1.3 (0.8-1.4); PROTHROMBIN TIME PATIENT 16.4 SEC (12.2-14.7)
[2017-07-26 16:49] LABS: ALANINE AMINOTRANSFERASE 16 U/L (0-55); ALKALINE PHOSPHATASE 71 U/L (40-136); BILIRUBIN,TOTAL 0.5 MG/DL (0.1-1.0); BUN/CREATININE RATIO 14; CARBON DIOXIDE 17 MMOL/L (21-32); CHLORIDE 109 MMOL/L (98-107); CREATININE SERUM 1.68 MG/DL (0.60-1.30); GFR ESTIMATED 40; GLUCOSE 100 MG/DL (70-105); MAGNESIUM 2.1 MG/DL (1.8-2.4); POTASSIUM 4.3 MMOL/L (3.6-5.0); SODIUM 137 MMOL/L (135-145); TOTAL PROTEIN 6.5 GM/DL (6.4-8.2)
[2017-07-26 16:55] LABS: MYOGLOBIN SERUM 326.5 NG/ML (10.0-92.0)
--- NOTE | 2017-07-26 17:24 | Diagnostic Imaging Report ---
INDICATION: Near syncope. Chest pain. FINDINGS: Upright chest shows mild cardiomegaly with normal vascularity. The lungs are clear. There is no effusion or pneumothorax. There are changes of prior CABG. A pacemaker is present. IMPRESSION: No acute abnormality is seen with no significant change from 05/18/17. Dictated by: Dictated on workstation # [id number]
--- NOTE | 2017-07-26 18:31 | ED Cardiac General ---
History of Present Illness General Chief Complaint: Dizziness/Syncope Stated Complaint: SYNCOPE Nursing Triage Note: ARRIVED VIA EMS TO ROOM 03 WITH COMPLAINTS NEAR SYNCOPE EPISODE AND SUDDEN ONSET OF WEAKNESS. ALSO COMPLAINS OF MILD CHEST PAIN THAT LASTED A FEW SECONDS. Source: patient, EMS Exam Limitations: no limitations History of Present Illness Date Seen by Provider: July 26, 2017 Time Seen by Provider: 16:07 Initial Comments This 71 old gentleman presents to the emergency room with complaints of near syncope after having lunch today. He drank 3 beers at lunch and then developed significant dizziness while ambulating. He activated EMS for further evaluation. He also had a brief episode of chest pain during his episode of near syncope. He still feels dizzy now upon rising. Orthostatic systolic blood pressures in the 70s. Patient has history of CABG. He also has history of significant bladder hemorrhage for which she was treated in April in [place]. He was taken off of all anticoagulants and antiplatelet medications because of this bleed. He required a transfusion of 4 units of blood during that admission in [place]. He had previously been on anticoagulation for history of PE and DVT. He denies any chest pain at present. He is alert and oriented. Allergies and Home Medications Allergies Coded Allergies: metoprolol (Unverified Allergy, Unknown, 09/18/14) "sunburn" rivaroxaban (Unverified Allergy, Unknown, 12/18/14) VOMITING/DIARRHEA Home Medications Apixaban 5 Mg Tablet, 5 MG PO BID, (Reported) Aspirin 81 Mg Tablet.dr, 81 MG PO DAILY, (Reported) Fludrocortisone Acetate 0.1 Mg Tab, 0.1 MG PO DAILY, (Reported) LAST FILLED #30 17 Lovastatin 20 Mg Tablet, 10 MG PO HS, (Reported) LAST FILLED 09-28-16 #45 TAKES 1/2 (20MG) TABLET Multivitamin 1 Each Tablet, 1 TAB PO DAILY, (Reported) Nebivolol HCl 2.5 Mg Tablet, 2.5 MG PO DAILY, (Reported) LAST FILLED #30 01-30-17 [place] 3 Polyunsat Fatty Acids 1,000 Mg Cap, 1,000 MG PO DAILY, (Reported) Patient Home Medication List Home Medication List Reviewed: Yes Review of Systems Constitutional: no symptoms reported EENTM: No Symptoms Reported Respiratory: No Symptoms Reported Cardiovascular: See HPI Gastrointestinal: No Symptoms Reported Genitourinary: See HPI Musculoskeletal: no symptoms reported Skin: no symptoms reported Psychiatric/Neurological: No Symptoms Reported Endocrine: No Symptoms Reported Hematologic/Lymphatic: See HPI Past Sxoeqwy-Oljagi-Uwiyuc Hx Patient Social History Alcohol Use: Denies Use Alcohol Beverage of Choice: Beer Recreational Drug Use: No Drug of Choice: distant past history of marijuana use Smoking Status: Never a Smoker 2nd Hand Smoke Exposure: Yes (Father was a heavy smoker in his youth) Recent Foreign Travel: No Contact w/Someone Who Travel: No Recent Infectious Disease Expo: No Recent Hopitalizations: No Immunizations Up To Date Tetanus Booster (TDap): Unknown PED Vaccines UTD: Yes Date of Pneumonia Vaccine: Feb 28, 2013 Date of Influenza Vaccine: Dec 27, 2016 Seasonal Allergies Seasonal Allergies: No Past Medical History Surgeries: Yes CABG, Eye Surgery, Pacemaker, Vascular Surgery Respiratory: Yes Pneumonia, Pulmonary Embolism Currently Using CPAP: No Currently Using BIPAP: No Cardiac: Yes Cardiomyopathy, Coronary Artery Disease, Deep Vein Thrombosis, Heart Murmur, High Cholesterol, Hypertension, Irregular Heartbeat Neurological: No Reproductive Disorders: No Sexually Transmitted Disease: No HIV/AIDS: No Genitourinary: Yes (RETENTION) Benign Prostatic Hyperpl, Prostate Problems, Renal Failure, Neurogenic Bladder, UTI-Chronic Gastrointestinal: No Musculoskeletal: Yes (L hip fx, right ankle broken) Fractures Endocrine: No HEENT: Yes Cataract Loss of Vision: Denies Hearing Impairment: Denies Cancer: No Psychosocial: No Integumentary: No Blood Disorders: No Family Medical History Cancer (LINING OF ABD CAVITY, AT AGE 80) 03 MOTHER Chest pain (FATHER OF [place] AT AGE 83) 03 FATHER Congestive heart failure 03 FATHER Family history: Arthritis 03 MOTHER Family history: Cardiovascular disease 03 FATHER Heart disease 03 FATHER Hypercholesterolemia 03 FATHER 03 MOTHER Myocardial infarction 03 FATHER Prostate cancer (DIAGNOSED AT 70 OR 71 PER PT) 03 FATHER Stroke 09 SISTER Visual impairment (SISTER WEARS GLASSES ) 09 SISTER No Family History of: Abdominal aortic aneurysm Jorge's disease Alcoholism Aphasia Cancer of colon Cataract Congenital heart disease Cystic fibrosis Dementia Dysphagia Family history: Allergy Family history: Alzheimer's disease Family history: Asthma Family history: Breast disease Family history: Coronary thrombosis Family history: Diabetes mellitus Family history: Gastrointestinal disease Family history: Glaucoma Family history: Hypertension Family history: Osteoporosis Family history: Thyroid disorder Headache Hearing loss Hereditary disease History of - anemia History of - disorder History of - respiratory disease History of drug abuse Human immunodeficiency virus (HIV) seropositivity Infertile Kidney disease Malignant neoplasm of lung Parkinson's disease Psychotic disorder Seizure disorder Tuberculosis Cancer, CAD Over 55 Years Old, CVA Physical Exam Vital Signs Vital Signs - First Documented 07/26/17 07/26/17 16:16 16:28 Temp 97.6 Pulse 75 73 89 Resp 18 B/P (MAP) 116/62 (80) 108/60 (76) 70/42 (51) Pulse Ox 97 O2 Delivery Room Air Capillary Refill : Less Than 3 Seconds General Appearance: No Apparent Distress, WD/WN HEENT: PERRL/EOMI, Normal ENT Inspection, Pharynx Normal Neck: Normal Inspection, Carotid Bruit (mild carotid bruit bilaterally) Respiratory: Lungs Clear, Normal Breath Sounds, No Accessory Muscle Use, No Respiratory Distress Cardiovascular: Regular Rate, Rhythm, No Edema, No Murmur Gastrointestinal: Normal Bowel Sounds, Non Tender, Soft Extremity: Normal Inspection, No Pedal Edema Neurologic/Psychiatric: Alert, Oriented x3, No Motor/Sensory Deficits, Normal Mood/Affect, sleever II-XII Norm as Tested Skin: Normal Color, Warm/Dry Progress/Results/Core Measures Results/Orders Lab Results Laboratory Tests Test 07/26/17 16:13 07/26/17 18:36 Range/Units White Blood Count 4.7 4.3-11.0 10^3/uL Red Blood Count 3.58 L 4.35-5.85 10^6/uL Hemoglobin 8.4 L 13.3-17.7 G/DL Hematocrit 27 L 40-54 % Mean Corpuscular Volume 75 L 80-99 FL Mean Corpuscular Hemoglobin 24 L 25-34 PG Mean Corpuscular Hemoglobin Concent 31 L 32-36 G/DL Red Cell Distribution Width 16.2 H 10.0-14.5 % Platelet Count 237 130-400 10^3/uL Mean Platelet Volume 10.7 H 7.4-10.4 FL Neutrophils (%) (Auto) 55 42-75 % Lymphocytes (%) (Auto) 32 12-44 % Monocytes (%) (Auto) 11 0-12 % Eosinophils (%) (Auto) 1 0-10 % Basophils (%) (Auto) 1 0-10 % Neutrophils # (Auto) 2.6 1.8-7.8 X 10^3 Lymphocytes # (Auto) 1.5 1.0-4.0 X 10^3 Monocytes # (Auto) 0.5 0.0-1.0 X 10^3 Eosinophils # (Auto) 0.1 0.0-0.3 10^3/uL Basophils # (Auto) 0.0 0.0-0.1 10^3/uL Prothrombin Time 16.4 H 12.2-14.7 SEC INR Comment 1.3 0.8-1.4 Activated Partial Thromboplast Time 30 24-35 SEC Sodium Level 137 135-145 MMOL/L Potassium Level 4.3 3.6-5.0 MMOL/L Chloride Level 109 H 98-107 MMOL/L Carbon Dioxide Level 17 L 21-32 MMOL/L Anion Gap 11 5-14 MMOL/L Blood Urea Nitrogen 23 H 7-18 MG/DL Creatinine 1.68 H 0.60-1.30 MG/DL Estimat Glomerular Filtration Rate 40 BUN/Creatinine Ratio 14 Glucose Level 100 70-105 MG/DL Calcium Level 9.0 8.5-10.1 MG/DL Magnesium Level 2.1 1.8-2.4 MG/DL Total Bilirubin 0.5 0.1-1.0 MG/DL Aspartate Amino Transf (AST/SGOT) 25 5-34 U/L Alanine Aminotransferase (ALT/SGPT) 16 0-55 U/L Alkaline Phosphatase 71 40-136 U/L Myoglobin 326.5 H 10.0-92.0 NG/ML Troponin I < 0.30 <0.30 NG/ML Total Protein 6.5 6.4-8.2 GM/DL Albumin 4.0 3.2-4.5 GM/DL Serum Alcohol 38 H <10 MG/DL Urine Color YELLOW Urine Clarity CLEAR Urine pH 6 5-9 Urine Specific [place] 1.015 L 1.016-1.022 Urine Protein 2+ H NEGATIVE Urine Glucose (UA) NEGATIVE NEGATIVE Urine Ketones NEGATIVE NEGATIVE Urine Nitrite NEGATIVE NEGATIVE Urine Bilirubin NEGATIVE NEGATIVE Urine Urobilinogen NORMAL NORMAL MG/DL Urine Leukocyte Esterase 3+ H NEGATIVE Urine RBC (Auto) 2+ H NEGATIVE Urine RBC NONE /HPF Urine WBC >100 H /HPF Urine Crystals NONE /LPF Urine Bacteria FEW H /HPF Urine Casts PRESENT /LPF Urine Hyaline Casts RARE /LPF Urine Mucus NEGATIVE /LPF Urine Culture Indicated YES My Orders Orders - PIEDAD RILEY MD Ekg Tracing (07/26/17 16:09) Cbc With Automated Diff (07/26/17 16:22) Magnesium (07/26/17 16:22) Chest 1 View, Ap/Pa Only (07/26/17 16:22) Cardiac Profile 1 (07/26/17 16:22) Comprehensive Metabolic Panel (07/26/17 16:22) Myoglobin Serum (07/26/17 16:22) Protime With Inr (07/26/17 16:22) Partial Thromboplastin Time (07/26/17 16:22) O2 (07/26/17 16:22) Monitor-Rhythm Ecg Trace Only (07/26/17 16:) Lipid Panel (07/27/17 06:00) Aspirin Chewable Tablet (Baby Aspirin Ch (07/26/17 16:30) Saline Lock/Iv-Start (07/26/17 16:22) Saline Lock/Iv-Start (07/26/17 16:24) Ns Iv 1000 Ml (Sodium Chloride 0.9%) (07/26/17 16:24) Alcohol (07/26/17 16:24) Red Cells Leukocytes Reduced (07/26/17 18:43) Ua Culture If Indicated (07/26/17 18:43) Type And Screen (07/26/17 18:43) Medications Given in ED Current Medications Medications Dose Ordered Sig/Sukhjinder Route Start Time Stop Time Status Last Admin Dose Admin Aspirin 324 mg ONCE ONCE PO 07/26/17 16:30 07/26/17 16:31 DC 07/26/17 16:38 324 MG Sodium Chloride 1,000 ml @ 0 mls/hr Q0M ONCE IV 07/26/17 16:24 07/26/17 16:25 DC 07/26/17 16:38 1,000 MLS/HR Vital Signs/I&O 07/26/17 07/26/17 16:16 16:28 Temp 97.6 Pulse 75 82 73 89 Resp 18 B/P (MAP) 116/62 (80) 114/69 (84) 108/60 (76) 70/42 (51) Pulse Ox 97 O2 Delivery Room Air Blood Pressure Mean: 84 Progress Progress Note : Progress Note Orthostatic hypotension resolved with a liter of IV fluids. Patient was found to be significantly anemic. It is unclear if this is new anemia or residual from his prior admission requiring transfusions. However, in the context of his near syncope it deserves further observation. Case was discussed with Dr. oMlina who agrees with admission. Case was also discussed with Dr. Sullivan who would like a transfusion given due to concerns for cardiac health and possible acute occult blood loss. Patient is agreeable to admission. Frequent PVCs and trigeminy were noted on the rhythm monitoring. This is a known problem and was seen on prior EKGs. A urine specimen resulted after patient was admitted. He was noted to have urinary tract infection and Rocephin was added to his orders. Initial ECG Impression Date: July 26, 2017 Initial ECG Impression Time: 16:14 Initial ECG Rate: 80 Comment Atrial paced complexes Diagnostic Imaging Diagonstic Imaging: Xray Plain Films/CT/US/NM/MRI: chest Comments NAME: JORGE ALBERTO CALDWELL JR MED REC#: [id number] PT STATUS: REG ER : 1945 PHYSICIAN: PIEDAD RILEY MD ADMIT DATE: 07/26/17/ER Signed Date of Exam: 07/26/17 CHEST 1 VIEW, AP/PA ONLY INDICATION: Near syncope. Chest pain. FINDINGS: Upright chest shows mild cardiomegaly with normal vascularity. The lungs are clear. There is no effusion or pneumothorax. There are changes of prior CABG. A pacemaker is present. IMPRESSION: No acute abnormality is seen with no significant change from 05/18/17. Dictated by: Dictated on workstation # [id number] Dict: 07/26/17 172 Trans: 07/26/17 173 Interpreted by: SOFIE MCCABE MD Electronically signed by: SOFIE MCCABE MD 07/26/17 1736 Departure Communication (Admissions) Time/Spoke to Admitting Phy: 18:30 Dr. Molina Time/Spoke to Consulting Phy: 18:35 Dr. Sullivan Impression Primary Impression: Near syncope Additional Impressions: Orthostatic hypotension Anemia Qualified Codes: D64.9 - Anemia, unspecified Alcohol ingestion Chest pain Qualified Codes: R07.9 - Chest pain, unspecified Trigeminy Urinary tract infection Qualified Codes: N39.0 - Urinary tract infection, site not specified Disposition: ADMITTED INPATIENT Condition: Improved Admissions Decision to Admit Reason: Admit from ER (General) Decision to Admit/Date: July 26, 2017 Time/Decision to Admit Time: 18:30 Departure-Patient Inst. Referrals: [facility] (PCP/Family) Primary Care Physician PIEDAD RILEY MD July 26, 2017 18:31
[2017-07-26 18:50] LABS: BILIRUBIN,URINE NEGATIVE (NEGATIVE); CLARITY,URINE CLEAR; COLOR,URINE YELLOW; GLUCOSE, URINE (UA) NEGATIVE (NEGATIVE); KETONES,URINE NEGATIVE (NEGATIVE); LEUKOCYTE ESTERASE ,URINE 3+ (NEGATIVE); NITRITE,URINE NEGATIVE (NEGATIVE); PH,URINE 6 (5-9); PROTEIN,URINE 2+ (NEGATIVE); UROBILINOGEN,URINE NORMAL (NORMAL)
[2017-07-26 19:10] LABS: BACTERIA,URINE FEW /HPF; HYALINE CASTS, URINE RARE /LPF; WBC,URINE >100 /HPF
[2017-07-26] MEDS ORDERED: NS IV 1000 ML 1,000 ML ONE (19:40)
[2017-07-26] MEDS: NS IV 1000 ML 1,000 ML IV SCH (19:45)
[2017-07-26] MEDS ORDERED: NS IV 500 ML 500 ML IV ONE (20:15)
[2017-07-26] MEDS ORDERED: CATHETER FLUSH 10 ML SYR IV PRN (20:15)
[2017-07-26 20:35] LABS: BASOPHILS # (AUTO) 0.1 10^3/uL (0.0-0.1); BASOPHILS % (AUTO) 2 % (0-10); EOSINOPHILS # (AUTO) 0.1 10^3/uL (0.0-0.3); EOSINOPHILS % (AUTO) 4 % (0-10); HEMATOCRIT 27 % (40-54); HEMOGLOBIN 8.6 G/DL (13.3-17.7); LYMPHOCYTES # (AUTO) 1.6 X 10^3 (1.0-4.0); LYMPHOCYTES % (AUTO) 40 % (12-44); MEAN CORPUSCULAR HEMOGLOBIN 24 PG (25-34); MEAN CORPUSCULAR HGB CONC 31 G/DL (32-36); MEAN CORPUSCULAR VOLUME 76 FL (80-99); MONOCYTES # (AUTO) 0.5 X 10^3 (0.0-1.0); MONOCYTES % (AUTO) 12 % (0-12); NEUTROPHILS # (AUTO) 1.7 X 10^3 (1.8-7.8); NEUTROPHILS % (AUTO) 43 % (42-75); PLATELET COUNT 232 10^3/uL (130-400); RED BLOOD COUNT 3.62 10^6/uL (4.35-5.85); RED CELL DISTRIBUTION WIDTH 16.3 % (10.0-14.5); WHITE BLOOD COUNT 4.1 10^3/uL (4.3-11.0)
[2017-07-26] MEDS ORDERED: cefTRIAXone 1 GM (ROCEPHIN) VIAL ONE (20:57)
[2017-07-26] MEDS ORDERED: NS (IVPB) 50 ML ONE (20:58)
[2017-07-26] MEDS ORDERED: cefTRIAXone INJECTION 1,000 MG in NS (IVPB) 50 ML IV ONE (21:00)
[2017-07-27] VITALS (7 sets, daily range): BP systolic 103–132; BP diastolic 59–83
[2017-07-27 04:43] LABS: BASOPHILS % (AUTO) 1 % (0-10); EOSINOPHILS # (AUTO) 0.2 10^3/uL (0.0-0.3); EOSINOPHILS % (AUTO) 3 % (0-10); HEMATOCRIT 30 % (40-54); HEMOGLOBIN 9.3 G/DL (13.3-17.7); LYMPHOCYTES # (AUTO) 1.6 X 10^3 (1.0-4.0); LYMPHOCYTES % (AUTO) 30 % (12-44); MEAN CORPUSCULAR HEMOGLOBIN 24 PG (25-34); MEAN CORPUSCULAR HGB CONC 31 G/DL (32-36); MEAN CORPUSCULAR VOLUME 77 FL (80-99); MEAN PLATELET VOLUME 10.8 FL (7.4-10.4); MONOCYTES # (AUTO) 0.7 X 10^3 (0.0-1.0); MONOCYTES % (AUTO) 13 % (0-12); NEUTROPHILS # (AUTO) 2.8 X 10^3 (1.8-7.8); NEUTROPHILS % (AUTO) 53 % (42-75); PLATELET COUNT 209 10^3/uL (130-400); RED BLOOD COUNT 3.85 10^6/uL (4.35-5.85); RED CELL DISTRIBUTION WIDTH 17.3 % (10.0-14.5); WHITE BLOOD COUNT 5.3 10^3/uL (4.3-11.0)
[2017-07-27 05:03] LABS: CALCIUM 8.7 MG/DL (8.5-10.1); CREATININE SERUM 1.32 MG/DL (0.60-1.30); POTASSIUM 4.7 MMOL/L (3.6-5.0)
[2017-07-27] MEDS: NS IV 1000 ML 1,000 ML IV SCH (06:16)
--- NOTE | 2017-07-27 10:10 | History & Physical-Hospitalist ---
History of Present Illness HPI/Chief Complaint CC: Weakness with pre-syncope HPI: This is a 71-year-old white male who is known to me from prior hospital stay with a past medical history of corner artery bypass graft one year ago and severe hematuria in April 2017 which required sending over to [place] and holding all anticoagulation and antiplatelet agents since that time and maintains an indwelling Sandhu catheter who presented to the ER with pre- syncopal episode which a factor was drinking alcohol yesterday afternoon. Cardiology was concerned due to an episode of chest pain and severe hemoglobin decline but he does have a history of renal insufficiency. He was placed in the hospital for observation given 2 units of blood last night and has improved status. He's never had an EGD or colonoscopy so we'll consult Dr. Sebastian to get those scopes done at one point or another. He has been placed on Rocephin empirically for abnormal UA but he does have an indwelling Sandhu catheter. Source: patient Date Seen 07/27/17 Time Seen by Provider: 09:30 Attending Physician Cinthya Molina DO [facility] Referring Physician Date of Admission July 26, 2017 at 18:55 Home Medications & Allergies Home Medications Reviewed patient Home Medication Reconciliation performed by pharmacy medication reconciliations lay out technician and/or nursing. Patients Allergies have been reviewed. Allergies Allergies Coded Allergies metoprolol (Unverified Allergy, Unknown, 09/18/14) "sunburn" rivaroxaban (Unverified Allergy, Unknown, 12/18/14) VOMITING/DIARRHEA Past Oattfty-Iskzha-Pvnzoa Hx Past Med/Social Hx: Reviewed Nursing Past Med/Soc Hx, Reviewed and Corrections made Patient Social History Employed/Student: retired Alcohol Use: Denies Use Number of Drinks Today: AA Alcohol Beverage of Choice: Beer Recreational Drug Use: No Drug of Choice: distant past history of marijuana use Smoking Status: Never a Smoker 2nd Hand Smoke Exposure: Yes (Father was a heavy smoker in his youth) Physical Abuse Screen: No Sexual Abuse: No Recent Foreign Travel: No Contact w/other who traveled: No Recent Hopitalizations: No Recent Infectious Disease Expo: No Immunizations Up To Date Tetanus Booster (TDap): Unknown Pediatric: Yes Date of Pneumonia Vaccine: Feb 28, 2013 Date of Influenza Vaccine: Dec 27, 2016 Seasonal Allergies Seasonal Allergies: No Past Medical History Surgeries: CABG, Eye Surgery, Pacemaker, Vascular Surgery Respiratory: Pulmonary Embolism Currently Using CPAP: No Currently Using BIPAP: No Cardiac: Cardiomyopathy, Coronary Artery Disease, Deep Vein Thrombosis, Heart Murmur, High Cholesterol, Hypertension, Irregular Heartbeat Reproductive: No Sexually Transmitted Disease: No HIV/AIDS: No Genitourinary: Benign Prostatic Hyperpl, Prostate Problems, Renal Failure, Neurogenic Bladder, UTI-Chronic Gastrointestinal: Abdominal Hernia Musculoskeletal: Fractures HEENT: Cataract Loss of Vision: Denies Hearing Impairment: Denies History of Blood Disorders: No Family History Cancer (LINING OF ABD CAVITY, AT AGE 80) 03 MOTHER Chest pain (FATHER OF [place] AT AGE 83) 03 FATHER Congestive heart failure 03 FATHER Family history: Arthritis 03 MOTHER Family history: Cardiovascular disease 03 FATHER Heart disease 03 FATHER Hypercholesterolemia 03 FATHER 03 MOTHER Myocardial infarction 03 FATHER Prostate cancer (DIAGNOSED AT 70 OR 73 PER PT) 03 FATHER Stroke 09 SISTER Visual impairment (SISTER WEARS GLASSES ) 09 SISTER No Family History of: Abdominal aortic aneurysm Jorge's disease Alcoholism Aphasia Cancer of colon Cataract Congenital heart disease Cystic fibrosis Dementia Dysphagia Family history: Allergy Family history: Alzheimer's disease Family history: Asthma Family history: Breast disease Family history: Coronary thrombosis Family history: Diabetes mellitus Family history: Gastrointestinal disease Family history: Glaucoma Family history: Hypertension Family history: Osteoporosis Family history: Thyroid disorder Headache Hearing loss Hereditary disease History of - anemia History of - disorder History of - respiratory disease History of drug abuse Human immunodeficiency virus (HIV) seropositivity Infertile Kidney disease Malignant neoplasm of lung Parkinson's disease Psychotic disorder Seizure disorder Tuberculosis Cancer, CAD Over 55 Years Old, CVA Review of Systems Constitutional: see HPI, dizziness, weakness EENTM: no symptoms reported Respiratory: no symptoms reported Cardiovascular: chest pain Gastrointestinal: no symptoms reported Genitourinary: decreased output Musculoskeletal: back pain Skin: no symptoms reported Psychiatric/Neurological: Depressed All Other Systems Reviewed Negative Unless Noted: Yes Physical Exam Physical Exam Vital Signs Vital Signs - First Documented 07/26/17 07/26/17 16:16 16:28 Temp 97.6 Pulse 75 73 89 Resp 18 B/P (MAP) 116/62 (80) 108/60 (76) 70/42 (51) Pulse Ox 97 O2 Delivery Room Air Capillary Refill : Less Than 3 Seconds General Appearance: No Apparent Distress, WD/WN, Chronically ill Eyes: Bilateral Eye Normal Inspection, Bilateral Eye PERRL HEENT: PERRL/EOMI, Normal ENT Inspection, Pharynx Normal Neck: Full Range of Motion, Normal Inspection, Non Tender, Supple, Carotid Bruit Respiratory: Chest Non Tender, Lungs Clear, Normal Breath Sounds, No Accessory Muscle Use, No Respiratory Distress Cardiovascular: Regular Rate, Rhythm, No Edema, No Gallop, No JVD, No Murmur, Normal Peripheral Pulses Gastrointestinal: Normal Bowel Sounds, No Organomegaly, No Pulsatile Mass, Non Tender, Soft Back: Normal Inspection, No CVA Tenderness, No Vertebral Tenderness Extremity: Normal Capillary Refill, Normal Inspection, Normal Range of Motion, Non Tender, No Calf Tenderness, No Pedal Edema Neurologic/Psychiatric: Alert, Oriented x3, No Motor/Sensory Deficits, Depressed Affect Skin: Normal Color, Warm/Dry Lymphatic: No Adenopathy Results Results/Procedures Labs Laboratory Tests 07/26/17 16:13 07/26/17 20:11 07/27/17 03:25 Patient resulted labs reviewed. Assessment/Plan Admission Diagnosis Assessment: Pre-syncope Plan: Dr Sebastian consultation Monitor labs closely [facility] Admission Status: Observation Diagnosis/Problems Diagnosis/Problems (1) Near syncope Status: Acute (2) Renal insufficiency Status: Chronic (3) Alcohol ingestion Status: Acute (4) Trigeminy Status: Acute (5) Chest pain Status: Acute Qualifiers: Chest pain type: unspecified Qualified Codes: R07.9 - Chest pain, unspecified (6) Anemia Status: Acute Qualifiers: Anemia type: unspecified type Qualified Codes: D64.9 - Anemia, unspecified (7) Orthostatic hypotension Status: Chronic (8) Indwelling catheter present on admission Status: Acute (9) CAD (coronary artery disease) of bypass graft Status: Chronic Qualifiers: [place] vs. transplanted heart: [place] heart Associated angina: with stable angina Qualified Codes: I25.708 - Atherosclerosis of coronary artery bypass graft(s), unspecified, with other forms of angina pectoris (10) Essential (primary) hypertension Status: Chronic (11) BPH (benign prostatic hyperplasia) Status: Chronic Qualifiers: Lower urinary tract symptom presence: unspecified whether lower urinary tract symptoms present Qualified Codes: N40.0 - Benign prostatic hyperplasia without lower urinary tract symptoms (12) Urinary tract infection Status: Chronic Qualifiers: Indwelling urinary catheter type: indwelling urethral catheter Encounter type: sequela (13) Transfusion of blood during current hospitalisation Status: Acute Clinical Quality Measures DVT/VTE Risk/Contraindication: Risk Factor Score Per Nursin RFS Level Per Nursing on Admit: 2=Moderate CINTHYA MOLINA DO July 27, 2017 10:10
[2017-07-27] MEDS: MAGNESIUM CITRATE 300 ML BTL PO SCH ×3 (13:46→16:00)
--- NOTE | 2017-07-27 15:44 | CONSULTATION REPORT ---
DATE OF SERVICE: 07/27/2017 ADMITTING PHYSICIAN: Dr. Molina. ATTENDING PRESS LEADER: Xenia Madden APRN HISTORY OF PRESENT ILLNESS: The patient is a 71-year-old male, who was brought in by EMS due to fatigue and lightheadedness. He reports that he had exercise and then had lunch; however, did unintentionally have two to three beers and after exiting the location, felt significantly lightheaded. This gentleman does have a history of urinary retention and has had a catheter in place and changed since 2012. He was brought to the Emergency Department and orthostatic blood pressures were performed, which were significant and he was hydrated and this did improve. He was also found to be anemic with hemoglobin of 8.4 upon admission. He does have a significant history of what appears to be hypercoagulable issues including coronary artery disease requiring a 5-vessel bypass in 07/2016. He also reports that he had a DVT of the lower extremity as well as pulmonary embolism twice proximally within five months of each other and did have the second episode while on anticoagulation. When asked about having a blood testing done for hypercoagulable disorder, he states that something was done; however, was not sure of the results. He reports that he was on Eliquis; however, due to this anemia and the bleeding and hematuria approximately of 04/2017, he has not been on anticoagulation therapy. He has not had an endoscopy done in the past before. He does not report any family history of colon cancer and does have occasional episodes of reflux; however, nothing severe. PAST MEDICAL HISTORY: Coronary artery disease, history of DVT and pulmonary embolism x2, atrial fibrillation, hypercholesterolemia, hypertension, benign prostatic hypertrophy, renal failure, neurogenic bladder, chronic urinary tract infections. PAST SURGICAL HISTORY: Coronary artery bypass grafting x5 vessels in 07/2016, bilateral eye surgery, pacemaker implantation. ALLERGIES: METOPROLOL, RIVAROXABAN. MEDICATIONS: 1. Lovastatin 20 mg daily. 2. Nebivolol 2.5 mg daily 3. Mozier-3 fatty acid daily. 4. Fludrocortisone 1 mg daily. SOCIAL HISTORY: Negative smoke, social alcohol. FAMILY HISTORY: Mother, primary peritoneal carcinomatosis. Father, prostate cancer and myocardial infarction. REVIEW OF SYSTEMS: This is a well-nourished male in no acute distress. He is not experiencing any shortness of breath or difficulty breathing. No chest pain, palpitations, or diaphoresis. No nausea or vomiting. No diarrhea or constipation. No fever or chills. No recent inadvertent weight loss. All other review of systems negative. PHYSICAL EXAMINATION: VITAL SIGNS: Temperature 98.4, blood pressure 112/68, pulse 80, respirations 16, pulse ox 98% on room air. CHEST: Clear. Good breath sounds bilaterally. HEART: Regular, no murmurs. EXTREMITIES: No lower extremity edema. Negative Homans sign. HEENT: No scleral icterus. NECK: No cervical lymphadenopathy. ABDOMEN: Soft, nontender, nondistended. SKIN: Warm, dry. LABORATORY DATA: WBC 5.3, hemoglobin 9.3, hematocrit 30, platelets 209, BUN 27, creatinine 1.32. ASSESSMENT AND PLAN: A 71-year-old male with symptomatic anemia. He has had issues with blood loss anemia from the urogenital source, several, approximately two months ago. Since that time, his anticoagulants have been held; however, he continues to have another episode of symptomatic anemia. He has not had any endoscopy done in the past before and there may be an occult source and we will proceed with an EGD and biopsy on this admission. Job ID: [id number] DocumentID: [id number] Dictated Date: 07/27/2017 15:22:40 Yardmaster Date: 07/27/2017 15:43:38 Dictated By: HARDY ROACH MD
--- NOTE | 2017-07-27 15:47 | Conscious Sedation/ASA ---
Conscious Sedation Pre-Proced Time Reviewed: 15:30 ASA Class: 3 Airway Mallampati Classification: (quileute appropriate class) I. II. III, IV Lungs Heart ASA score ASA 1: a normal healthy patient ASA 2: a patient with a mild systemic disease (mid diabetes, controlled hypertension, obesity ASA 3: a patient with a severe systemic disease that limits activity (angina , COPD, prior Myocardial infarction) ASA 4: a patient with an incapacitating disease that is a constant threat to life (CHF, renal failure) ASA 5: a moribund patient not expected to survive 24 hrs. (ruptured aneurysm) ASA 6: a declared brain patient whose organs are being harvested. For emergent operations, add the letter E after the classification Grade 2 Sedation Plan: Analgesia, Amnesia, Plan communicated to team members, Discussed options with patient/fam, Discussed risks with patient/fam Note The patient is an appropriate candidate to undergo the planned procedure, sedation, and anesthesia. The patient immediately re-assessed prior to indication. HARDY ROACH MD July 27, 2017 3:47 pm
--- NOTE | 2017-07-27 15:48 | Progress Note-Pre Operative ---
Pre-Operative Progress Note H&P Reviewed The H&P was reviewed, patient examined and no changes noted. Date Seen by Provider: July 27, 2017 Time Seen by Provider: 15:30 Date H&P Reviewed: July 27, 2017 Time H&P Reviewed: 15:30 Pre-Operative Diagnosis: symptomatic recurrent anemia HARDY ROACH MD July 27, 2017 3:48 pm
--- NOTE | 2017-07-27 17:27 | Consultation-Cardiology ---
HPI-Cardiology Cardiology Consultation: Date of Consultation 07/27/17 Date of Admission Attending Physician Cinthya Molina DO Admitting Physician [facility] Consulting Physician Gabrielle SANTOS MD HPI: Time Seen by Provider: 12:45 Chief Complaint: near syncope This is a 71-year-old gentleman who is well known to us. His cardiac history includes history of CABG one year ago, atrial fibrillation and dual-chamber permanent pacemaker. During one of his previous admissions he was found to be orthostatic hypotensive and antihypertensives were discontinued. He was started on Florinef with some improvement and then discharged. He presented in April 2017 with severe hematuria and significant hypotension and was transferred to [facility] in [place] where his oral anticoagulation and antiplatelet agents were held. He has an indwelling Sandhu catheter. He presented with complain of significant dizziness and near-syncope. There was a very brief episode of chest pain which according to the patient was for a second. He was found to be severely anemic therefore will be admitted. Review of Systems-Cardiology Review of Systems Constitutional: As described under HPI; No As described under HPI, No no symptoms reported, No chills, No fever, No lightheadedness Eyes: No As described under HPI, No no symptoms reported, No blindness, No blurred vision, No contact lenses, No drainage, No decreased acuity, No foreign body sensation, No pain, No vision change Ears/Nose/Throat: No As described under HPI, No no symptoms reported, No chronic hearing loss, No ear discharge, No ear pain, No nasal drainage, No ulcerations Respiratory: No no symptoms reported; As described under HPI; No As described under HPI, No cough, No orthopnea, No shortness of breath, No SOB with excertion Cardiovascular: No no symptoms reported; As described under HPI; No As described under HPI; chest pain; No edema, No irregular heart rate, No lightheadedness, No palpitations Gastrointestinal: No no symptoms reported, No As described under HPI, No abdomen distended, No abdominal pain, No blood streaked bowels, No constipation , No diarrhea, No nausea, No vomiting, No stool coloration changes Genitourinary: As described under HPI; No burning, No dysuria, No discharge, No frequency, No flank pain, No hematuria, No urgency Musculoskeletal: No no symptoms reported, No As describe under HPI, No back pain, No gout, No joint pain, No joint swelling, No muscle pain, No muscle stiffness, No neck pain, No other Skin: No no symptoms reported, No As described under HPI, No change in color, No change in hair/nails, No dryness, No lesions, No lumps, No rash, No other, No skin related problems, No ulcerations, No rash on exposed areas, No ulcerations on exposed areas Psychiatric/Neurological: syncope; No anxiety, No depression, No seizure, No focal weakness Hematologic: anemia; No bleeding abnormalities All Other Systems Reviewed Negative Unless Noted: Yes [id number]-[id number] Hx Patient Social History Employed/Student: retired Alcohol Use: Denies Use Recreational Drug Use: No Drug of Choice: distant past history of marijuana use Smoking Status: Never a Smoker 2nd Hand Smoke Exposure: Yes (Father was a heavy smoker in his youth) Recent Foreign Travel: No Recent Infectious Disease Expo: No Physical Abuse Screen: No Sexual Abuse: No Immunizations Up To Date Tetanus Booster (TDap): Unknown Date of Pneumonia Vaccine: Feb 28, 2013 Date of Influenza Vaccine: Dec 27, 2016 Past Medical History PMH As described under Assessment. Family Medical History Family History: Cancer (LINING OF ABD CAVITY, AT AGE 80) 03 MOTHER Chest pain (FATHER OF [place] AT AGE 83) 03 FATHER Congestive heart failure 03 FATHER Family history: Arthritis 03 MOTHER Family history: Cardiovascular disease 03 FATHER Heart disease 03 FATHER Hypercholesterolemia 03 FATHER 03 MOTHER Myocardial infarction 03 FATHER Prostate cancer (DIAGNOSED AT 70 OR 71 PER PT) 03 FATHER Stroke 09 SISTER Visual impairment (SISTER WEARS GLASSES ) 09 SISTER No Family History of: Abdominal aortic aneurysm Jorge's disease Alcoholism Aphasia Cancer of colon Cataract Congenital heart disease Cystic fibrosis Dementia Dysphagia Family history: Allergy Family history: Alzheimer's disease Family history: Asthma Family history: Breast disease Family history: Coronary thrombosis Family history: Diabetes mellitus Family history: Gastrointestinal disease Family history: Glaucoma Family history: Hypertension Family history: Osteoporosis Family history: Thyroid disorder Headache Hearing loss Hereditary disease History of - anemia History of - disorder History of - respiratory disease History of drug abuse Human immunodeficiency virus (HIV) seropositivity Infertile Kidney disease Malignant neoplasm of lung Parkinson's disease Psychotic disorder Seizure disorder Tuberculosis Allergies and Home Medications Allergies Coded Allergies: metoprolol (Unverified Allergy, Unknown, 09/18/14) "sunburn" rivaroxaban (Unverified Allergy, Unknown, 12/18/14) VOMITING/DIARRHEA Home Medications Multivitamin 1 Each Tablet, 1 TAB PO DAILY, (Reported) [place] 3 Polyunsat Fatty Acids 1,000 Mg Cap, 1,000 MG PO DAILY, (Reported) Patient Home Medication List Home Medication List Reviewed: Yes Physical Exam-Cardiology Physical Exam Vital Signs/I&O 07/28/17 07/28/17 07/28/17 07/28/17 07:00 08:39 13:00 15:45 Temp 96.9 96.8 Pulse 80 82 79 79 Resp 20 18 B/P (MAP) 144/79 (100) 122/63 (82) Pulse Ox 95 95 O2 Delivery Room Air Room Air 07/28/17 00:00 Intake Total 1520 ml Output Total 2550 ml Balance -1030 ml Capillary Refill : Less Than 3 Seconds Constitutional: appears stated age, AAO x 3; No apparent distress; well- developed, well-nourished HEENT: PERRL; No normal ENT inspection, No TMs normal, No pharynx normal, No scleral icterus (R), No scleral icterus (L), No pale conjunctivae (R), No pale conjunctivae (L), No photophobia, No TM abnormal (R), No TM abnormal (L), No pharyngeal erythema, No tonsillar exudate, No other, No discharge, No EOMI; hearing is well preserved; No hard of hearing; oral hygience is good; No ulceration, No xanthelasmas are seen Neck: No non-tender, No full range of motion, No supple, No normal inspection, No carotid bruit, No limited range of motion, No lymphadenopathy (R), No lymphadenopathy (L), No tender lateral, No tender midline, No thyromegaly, No other; carotid pulses are 2 + bilaterally; No with good upstrokes Respiratory: No accessory muscle use, No respiratory distress, No chest tender , No chest expansion is symmetric; chest is bilaterally symmetric; No lungs clear to percussion; lungs clear to auscultation; No crackles, No rhonchi, No rales, No stridor, No wheezing, No pleural rub, No other Cardiovascular: regular rate-rhythm; No irregularly irregular, No extra beats, No parasternal heave is noted, No JVD, No edema, No bradycardia, No tachycardia , No point of maximal impulse, No cardiac thrills are palpable; S1 and S2; No gallop/S3, No gallop/S4, No diastolic murmur, No systolic murmur, No friction rub, No click, No other Gastrointestinal: No tender, No soft, No round, No distended, No pulsatile mass , No organomegaly, No guarding, No rebound, No tenderness, No hernia, No mass, No audible bowel sounds, No abnormal bowel sounds, No abdominal bruits, No spleenomegaly, No other Rectal: deferred Extremities: No normal range of motion, No non-tender, No normal inspection, No pedal edema, No calf tenderness, No normal capillary refill, No pelvis stable , No calf tenderness, No inflammation, No pedal edema, No slow capillary refill , No swelling, No other, No abrasion, No clubbing, No cyanosis, No ecchymosis, No laceration, No no lower extremity edema bilateral, No significant edema, No tenderness, No wound Neurologic/Psychiatric: no motor/sensory deficits, alert, normal mood/affect, oriented x 3, power is 5/5 both on sides Skin: No normal color, No warm/dry, No cyanosis, No cool, No diaphoresis, No damp, No ecchymosis, No jaundice, No mottled; pallor; No rash, No tattoos/ piercings, No ulcerations, No rash on exposed areas, No ulcerations on exposed areas, No other Data Review Labs Laboratory Tests 07/28/17 06:28: White Blood Count 4.1L, Red Blood Count 4.32L, Hemoglobin 10.6L, Hematocrit 33L , Mean Corpuscular Volume 76L, Mean Corpuscular Hemoglobin 25, Mean Corpuscular Hemoglobin Concent 32, Red Cell Distribution Width 17.1H, Platelet Count 213, Mean Platelet Volume 10.6H, Neutrophils (%) (Auto) 42, Lymphocytes (%) (Auto) 42 , Monocytes (%) (Auto) 12, Eosinophils (%) (Auto) 3, Basophils (%) (Auto) 1, Neutrophils # (Auto) 1.7L, Lymphocytes # (Auto) 1.7, Monocytes # (Auto) 0.5, Eosinophils # (Auto) 0.1, Basophils # (Auto) 0.1, Sodium Level 138, Potassium Level 4.6, Chloride Level 108H, Carbon Dioxide Level 22, Anion Gap 8, Blood Urea Nitrogen 21H, Creatinine 0.98, Estimat Glomerular Filtration Rate > 60, BUN /Creatinine Ratio 21, Glucose Level 79, Calcium Level 8.9, Total Bilirubin 0.7, Aspartate Amino Transf (AST/SGOT) 18, Alanine Aminotransferase (ALT/SGPT) 15, Alkaline Phosphatase 76, Total Protein 6.4, Albumin 3.8 Microbiology 07/26/17 Urine Culture - Final, Complete See Comments ECG Impression ECG Comment Atrial, ventricular paced rhythm. A/P-Cardiology Assessment/Admission Diagnosis Near syncope, chest pain, CAD/CABG, Atrial fibrillation, Orthostatic hypotension, Previous history of hematuria, Renal insufficiency Plan Near syncope, chest pain: Chest pain unlikely coronary in origin since it was less then a second in duration. Troponin serial 2 negative. Patient was found to be orthostatic in the ER which is likely the cause of his dizziness and near-syncope. Orthostatics improved significantly after he was given blood transfusion. We repeated it again in the ICU and he was normal. Therefore orthostatic hypotension is likely due to hypovolemia due to anemia. CAD/CABG, previously antiplatelet agents were held due to severe hematuria and blood loss. Will not start till the cause of anemia in the current admission is verified. Atrial fibrillation, not on oral anticoagulation due to previous severe hematuria and current anemia. Orthostatic hypotension, improved significantly after blood transfusion was given. Previous history of hematuria, no current bleeding and the Sandhu catheter. Renal insufficiency, improved kidney function. Anemia: Defer to primary team and Gen. surgery. Thank you for your consultation. Please call me if you have any questions. Jordyn Santos MD, FACP, FACC, FSCAI, FHRS, CCDS Interventional Cardiology Cardiac Electrophysiology Vascular Medicine and Endovascular Interventions Clinical Quality Measures DVT/VTE Risk/Contraindication: Risk Factor Score Per Nursin RFS Level Per Nursing on Admit: 2=Moderate Gabrielle SANTOS MD July 27, 2017 17:27
[2017-07-27] MEDS: cefTRIAXone INJECTION 1,000 MG in NS (IVPB) 50 ML IV SCH (20:51)
[2017-07-27] MEDS: POLYETHYLENE GLYCOL 17 GM (MIRALAX) PACK PO SCH (20:51)
[2017-07-28] VITALS: BP 126/77
[2017-07-28 05:00] VITALS: BP 130/73
[2017-07-28 06:51] LABS: BASOPHILS # (AUTO) 0.1 10^3/uL (0.0-0.1); BASOPHILS % (AUTO) 1 % (0-10); EOSINOPHILS # (AUTO) 0.1 10^3/uL (0.0-0.3); EOSINOPHILS % (AUTO) 3 % (0-10); HEMATOCRIT 33 % (40-54); HEMOGLOBIN 10.6 G/DL (13.3-17.7); LYMPHOCYTES # (AUTO) 1.7 X 10^3 (1.0-4.0); LYMPHOCYTES % (AUTO) 42 % (12-44); MEAN CORPUSCULAR HEMOGLOBIN 25 PG (25-34); MEAN CORPUSCULAR HGB CONC 32 G/DL (32-36); MEAN CORPUSCULAR VOLUME 76 FL (80-99); MEAN PLATELET VOLUME 10.6 FL (7.4-10.4); MONOCYTES # (AUTO) 0.5 X 10^3 (0.0-1.0); MONOCYTES % (AUTO) 12 % (0-12); NEUTROPHILS # (AUTO) 1.7 X 10^3 (1.8-7.8); NEUTROPHILS % (AUTO) 42 % (42-75); PLATELET COUNT 213 10^3/uL (130-400); RED BLOOD COUNT 4.32 10^6/uL (4.35-5.85); RED CELL DISTRIBUTION WIDTH 17.1 % (10.0-14.5); WHITE BLOOD COUNT 4.1 10^3/uL (4.3-11.0)
[2017-07-28 07:10] LABS: ALANINE AMINOTRANSFERASE 15 U/L (0-55); ALBUMIN 3.8 GM/DL (3.2-4.5); ALKALINE PHOSPHATASE 76 U/L (40-136); BILIRUBIN,TOTAL 0.7 MG/DL (0.1-1.0); BUN/CREATININE RATIO 21; CALCIUM 8.9 MG/DL (8.5-10.1); CARBON DIOXIDE 22 MMOL/L (21-32); CHLORIDE 108 MMOL/L (98-107); CREATININE SERUM 0.98 MG/DL (0.60-1.30); GFR ESTIMATED > 60; GLUCOSE 79 MG/DL (70-105); POTASSIUM 4.6 MMOL/L (3.6-5.0); SODIUM 138 MMOL/L (135-145); TOTAL PROTEIN 6.4 GM/DL (6.4-8.2)
[2017-07-28 08:39] VITALS: BP 144/79
[2017-07-28] MEDS: cefTRIAXone INJECTION 1,000 MG in NS (IVPB) 50 ML IV SCH (10:43)
[2017-07-28] MEDS: POLYETHYLENE GLYCOL 17 GM (MIRALAX) PACK PO SCH (10:50)
--- NOTE | 2017-07-28 10:51 | Progress Note-Hospitalist ---
Subjective HPI/CC On Admission Date Seen by Provider: July 28, 2017 Time Seen by Provider: 11:00 CC: Weakness with pre-syncope HPI: This is a 71-year-old white male who is known to me from prior hospital stay with a past medical history of corner artery bypass graft one year ago and severe hematuria in April 2017 which required sending over to [facility] and holding all anticoagulation and antiplatelet agents since that time and maintains an indwelling Sandhu catheter who presented to the ER with pre- syncopal episode which a factor was drinking alcohol yesterday afternoon. Cardiology was concerned due to an episode of chest pain and severe hemoglobin decline but he does have a history of renal insufficiency. He was placed in the hospital for observation given 2 units of blood last night and has improved status. He's never had an EGD or colonoscopy so we'll consult Dr. Sebastian to get those scopes done at one point or another. He has been placed on Rocephin empirically for abnormal UA but he does have an indwelling Sandhu catheter. Subjective/Events-last exam Patient doing well overall and waiting for colonoscopy and EGD by Dr. Sebastian Feels much better since receiving the 2 units of packed red blood cell transfusions Telemetry has revealed no arrhythmia during his hospital stay Likely will go home after the scopes Maintains Sandhu catheter chronically Reviewed urine culture and mixed jose enrique so will stop Rocephin Review of Systems General: Fatigue Objective Exam Vital Signs Vital Signs Date Time Temp Pulse Resp B/P (MAP) Pulse Ox O2 Delivery O2 Flow Rate FiO2 07/28/17 08:39 96.9 82 20 144/79 (100) 95 Room Air Capillary Refill : Less Than 3 Seconds General Appearance: No Apparent Distress, WD/WN, Chronically ill Respiratory: Lungs Clear, Normal Breath Sounds Cardiovascular: No Edema, Irregularly Irregular Neurologic/Psychiatric: Alert, Oriented x3, No Motor/Sensory Deficits, Normal Mood/Affect Results/Procedures Lab Laboratory Tests 07/28/17 06:28 Patient resulted labs reviewed. Assessment/Plan Assessment and Plan Assess & Plan/Chief Complaint Pre-syncope Anemia obtaining scopes today Plan: DC home after scopes if ok with Dr Sebastian Diagnosis/Problems Diagnosis/Problems (1) Near syncope Status: Resolved (2) Renal insufficiency Status: Resolved (3) Alcohol ingestion Status: Acute (4) Trigeminy Status: Acute (5) Chest pain Status: Acute Qualifiers: Chest pain type: unspecified Qualified Codes: R07.9 - Chest pain, unspecified (6) Anemia Status: Acute Qualifiers: Anemia type: unspecified type Qualified Codes: D64.9 - Anemia, unspecified (7) Orthostatic hypotension Status: Chronic (8) Indwelling catheter present on admission Status: Acute (9) CAD (coronary artery disease) of bypass graft Status: Chronic Qualifiers: [place] vs. transplanted heart: [place] heart Associated angina: with stable angina Qualified Codes: I25.708 - Atherosclerosis of coronary artery bypass graft(s), unspecified, with other forms of angina pectoris (10) Essential (primary) hypertension Status: Chronic (11) BPH (benign prostatic hyperplasia) Status: Chronic Qualifiers: Lower urinary tract symptom presence: unspecified whether lower urinary tract symptoms present Qualified Codes: N40.0 - Benign prostatic hyperplasia without lower urinary tract symptoms (12) Transfusion of blood during current hospitalisation Status: Resolved Clinical Quality Measures DVT/VTE Risk/Contraindication: Risk Factor Score Per Nursin RFS Level Per Nursing on Admit: 2=Moderate DEBBIE HOPPER DO July 28, 2017 10:51
[2017-07-28] MEDS ORDERED: LIDOCAINE JELLY 2% (XYLOCAINE) 5 ML TUBE ONE (12:12)
[2017-07-28] MEDS ORDERED: fentaNYL INJECTION 100 MCG/2 ML AMP ONE (12:12)
[2017-07-28] MEDS ORDERED: HURRICAINE EXT TUBE (BENZOCAINE) ONE (12:13)
[2017-07-28] MEDS ORDERED: NS IV 500 ML 500 ML ONE (12:13)
[2017-07-28] MEDS ORDERED: MIDAZOLAM 2 MG/2 ML (VERSED) VIAL ONE ×4 (12:13)
[2017-07-28] MEDS: MIDAZOLAM 2 MG/2 ML (VERSED) VIAL IVP PRN ×4 (12:35→13:30)
[2017-07-28] MEDS ORDERED: NS IV 500 ML 500 ML IV PRN (12:46)
[2017-07-28] MEDS ORDERED: LIDOCAINE JELLY 2% (XYLOCAINE) 5 ML TUBE MM PRN (13:00)
[2017-07-28] MEDS ORDERED: HURRICAINE EXT TUBE (BENZOCAINE) XX PRN (13:00)
[2017-07-28] MEDS: fentaNYL INJECTION 100 MCG/2 ML AMP IVP PRN ×2 (13:03→13:20)
--- NOTE | 2017-07-28 14:25 | Progress Note-Post Operative ---
Post-Operative Progess Note Surgeon (s)/Dampener (s) Surgeon HARDY ROACH MD Dampener: none Pre-Operative Diagnosis symptomatic recurrent anemia Post-Operative Diagnosis reflux esophagitis(class B), moderate-large hiatal hernia(5-6cm) with tony's ulcers without active bleed, moderate gastritis. mild anal stenosis, mild sigmoid diverticulosis. Procedure & Operative Findings Date of Procedure 07/28/17 Procedure Performed/Findings EGD with bx. Colonoscopy. Anesthesia Type CS Estimated Blood Loss Estimated blood loss (mL): minimal Specimens/Packing Specimens Removed GE jxn, antrum HARDY ROACH MD July 28, 2017 14:25
[2017-07-28 15:45] VITALS: BP 122/63
[2017-07-28] MEDS ORDERED: SUCRALFATE 1 GM (CARAFATE) TAB PO SCH (16:00)
--- NOTE | 2017-07-28 18:14 | Cardiology Progress Note ---
Cardiology SOAP Progress Note Subjective: No cardiac symptoms. Objective: I&O/Vital Signs 07/28/17 07/28/17 07/28/17 07/28/17 07:00 08:39 13:00 15:45 Temp 96.9 96.8 Pulse 80 82 79 79 Resp 20 18 B/P (MAP) 144/79 (100) 122/63 (82) Pulse Ox 95 95 O2 Delivery Room Air Room Air 07/28/17 00:00 Intake Total 1520 ml Output Total 2550 ml Balance -1030 ml Weight (Pounds): 198 Weight (Ounces): 5.4 Weight (Calculated Kilograms): 89.402463 Constitutional: appears stated age, AAO x 3; No apparent distress; well- developed, well-nourished Respiratory: No accessory muscle use, No respiratory distress, No chest tender , No chest expansion is symmetric; chest is bilaterally symmetric; No lungs clear to percussion; lungs clear to auscultation; No crackles, No rhonchi, No rales, No stridor, No wheezing, No pleural rub, No other Cardiovascular: regular rate-rhythm; No irregularly irregular, No extra beats, No parasternal heave is noted, No JVD, No edema, No bradycardia, No tachycardia , No point of maximal impulse, No cardiac thrills are palpable; S1 and S2; No gallop/S3, No gallop/S4, No diastolic murmur, No systolic murmur, No friction rub, No click, No other Gastrointestional: No tender, No soft, No round, No distended, No pulsatile mass, No organomegaly, No guarding, No rebound, No tenderness, No hernia, No mass, No audible bowel sounds, No abnormal bowel sounds, No abdominal bruits, No spleenomegaly, No other Extremities: No normal range of motion, No non-tender, No normal inspection, No pedal edema, No calf tenderness, No normal capillary refill, No pelvis stable , No calf tenderness, No inflammation, No pedal edema, No slow capillary refill , No swelling, No other, No abrasion, No clubbing, No cyanosis, No ecchymosis, No laceration, No no lower extremity edema bilateral, No significant edema, No tenderness, No wound Neurologic/Psychiatric: no motor/sensory deficits, alert, normal mood/affect, oriented x 3, power is 5/5 both on sides Skin: No normal color, No warm/dry, No cyanosis, No cool, No diaphoresis, No damp, No ecchymosis, No jaundice, No mottled; pallor; No rash, No tattoos/ piercings, No ulcerations, No rash on exposed areas, No ulcerations on exposed areas, No other Results/Procedures: Labs Laboratory Tests 07/28/17 06:28: White Blood Count 4.1L, Red Blood Count 4.32L, Hemoglobin 10.6L, Hematocrit 33L , Mean Corpuscular Volume 76L, Mean Corpuscular Hemoglobin 25, Mean Corpuscular Hemoglobin Concent 32, Red Cell Distribution Width 17.1H, Platelet Count 213, Mean Platelet Volume 10.6H, Neutrophils (%) (Auto) 42, Lymphocytes (%) (Auto) 42 , Monocytes (%) (Auto) 12, Eosinophils (%) (Auto) 3, Basophils (%) (Auto) 1, Neutrophils # (Auto) 1.7L, Lymphocytes # (Auto) 1.7, Monocytes # (Auto) 0.5, Eosinophils # (Auto) 0.1, Basophils # (Auto) 0.1, Sodium Level 138, Potassium Level 4.6, Chloride Level 108H, Carbon Dioxide Level 22, Anion Gap 8, Blood Urea Nitrogen 21H, Creatinine 0.98, Estimat Glomerular Filtration Rate > 60, BUN /Creatinine Ratio 21, Glucose Level 79, Calcium Level 8.9, Total Bilirubin 0.7, Aspartate Amino Transf (AST/SGOT) 18, Alanine Aminotransferase (ALT/SGPT) 15, Alkaline Phosphatase 76, Total Protein 6.4, Albumin 3.8 Microbiology 07/26/17 Urine Culture - Final, Complete See Comments A/P: Assessment/Dx: Near syncope, chest pain, CAD/CABG, Atrial fibrillation, Orthostatic hypotension, Previous history of hematuria, Renal insufficiency Plan: Near syncope, chest pain: Now resolved. Chest pain unlikely coronary in origin since it was less then a second in duration. Troponin serial 2 negative. Patient was found to be orthostatic in the ER which is likely the cause of his dizziness and near-syncope. Orthostatics improved significantly after he was given blood transfusion. We repeated it again in the ICU and he was normal. Therefore orthostatic hypotension is likely due to hypovolemia due to anemia. CAD/CABG, previously antiplatelet agents were held due to severe hematuria and blood loss. Will not start till the cause of anemia in the current admission is verified. Atrial fibrillation, not on oral anticoagulation due to previous severe hematuria and current anemia. Orthostatic hypotension, improved significantly after blood transfusion was given. Previous history of hematuria, no current bleeding and the Sandhu catheter. Renal insufficiency, improved kidney function. Anemia: Defer to primary team and Gen. surgery. Endoscopy performed which showed hiatal hernia, esophagitis but no active source of bleeding. Thank you for your consultation. Please call me if you have any questions. Jordyn Santos MD, FACP, FACC, FSCAI, FHRS, CCDS Interventional Cardiology Cardiac Electrophysiology Vascular Medicine and Endovascular Interventions Gabrielle SANTOS MD July 28, 2017 18:14
[2017-07-28] MEDS ORDERED: SUCR1TAB36 PO (19:35)
[2017-07-28] MEDS ORDERED: PANT40TA2 PO (19:35)
[2017-07-28 19:50] VITALS: BP 122/63
--- NOTE | 2017-07-29 01:06 | OPERATIVE REPORT ---
DATE OF SERVICE: 07/28/2017 ADMITTING PHYSICIAN: Dr. Molina. ATTENDING ROD BUSTER HELPER: Xenia Madden APRN. PREOPERATIVE DIAGNOSIS: Anemia. POSTOPERATIVE DIAGNOSES: Reflux esophagitis class B, moderate to large hiatal hernia with multiple small Jesús's ulcers that were not actively bleeding, moderate severity gastritis, mild anal stenosis, mild sigmoid diverticulosis. PROCEDURE: EGD with biopsy, colonoscopy. SURGEON: Hardy Sebastian MD. ANESTHESIA: Conscious sedation. ESTIMATED BLOOD LOSS: Minimal. FINDINGS: EGD: Reflux esophagitis class B, intrathoracic GE junction with a moderate to large size hiatal hernia identified with multiple small Jesús's ulcers with no active bleeding. Moderate severity gastritis towards the stomach antrum with no formal ulcers, polyps or neoplasms. Pylorus and duodenum appeared normal with no distal obstructions. Colonoscopy: Mild anal stenosis, mild sigmoid diverticulosis with no mucosal inflammatory changes to indicate any diverticulitis and no bleeding. No polyps or any active bleeding sources identified. DISPOSITION: The patient tolerated the procedure well. INDICATIONS: The patient is a 71-year-old male who was brought in by EMS due to fatigue and lightheadedness. He reported that he had exercise and had lunch and did unintentionally have two or three beers after exiting his current location, felt significantly lightheaded. He does have a history of medical problems including urinary retention requiring a Sandhu catheter since 2012. He was brought into the Emergency Department and found to have orthostatic hypotension, which did improve with hydration. He was also found to be anemic with a hemoglobin of 8.4. 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 He reports that this had occurred within five months of each other and the second episode did occur while on anticoagulation. He was asked about having blood testing done for hypercoagulable disorders and he states that something was done; however, was unsure of any results. He reports that he has been on Eliquis; however, due to his anemia, bleeding as well as hematuria, which had occurred in 04/2017 requiring hospitalization as anticoagulation therapy has been discontinued. He has not had any endoscopy done before in the past. DESCRIPTION OF PROCEDURE: The patient was brought to the endoscopy suite, laid in the left lateral decubitus position with head slightly elevated. After adequate IV pain and sedating medications and conscious sedation anesthesia, the mouthpiece was applied. The endoscope was placed in the mouth, visualizing the pharynx and hypopharyngeal region. Vocal cords, epiglottis and vallecula identified and appeared to be normal. The endoscope was then gently intubated in the esophageal opening and esophagus insufflated. The endoscope was then advanced to the first, second and third portions of the esophagus. At the level of the GE junction, a reflux esophagitis class B identified. The GE junction appeared slightly intrathoracic consistent with either a type 1 or type 3 hiatal hernia. There were no strictures identified in this region. A biopsy was taken using forceps with visualization of good hemostasis. The endoscope was then advanced into the stomach where multiple small linear ulcerations were identified. This appeared to be within a pocket of a hiatal hernia of the stomach within the hiatal hernia. This was confirmed on retroflexed positioning of the scope with a hiatal hernia, moderate to large in size, approximately 5 to 6 cm. There was no active bleeding identified. There was a moderate severity gastritis towards the stomach antrum. There were no formal ulcers, polyps or any neoplasms identified as well as no active bleeding sources. A biopsy was taken using forceps with visualization of good hemostasis. Endoscope was then advanced to the pylorus and the first and second portion of the duodenum, which appeared normal with no distal obstructions as well as no ulcerations. The endoscope was then slowly withdrawn while taking a second look and suctioning of residual air with no additional findings. The patient tolerated this portion of procedure well. We will start him on medical therapy with the necessary lifestyle and diet accommodation including small and more frequent meals, avoidance of eating at night as well as head elevation while lying supine. He also needs to avoid caffeinated beverages as well as alcoholic beverages. He also needs to avoid spicy, greasy and acidic foods. We will also start him on Protonix 40 mg daily as well as Carafate 1 gram q.i.d. for the next 2 weeks and then on a p.r.n. basis. He may be restarted on anticoagulation at any time. However, there is the risk of recurrent episodes of bleeding due to this size and nature of the hiatal hernia. If he would like to have the hiatal hernia repaired and a Jessica fundoplication performed, we will proceed with further evaluation including an esophageal manometry study. If there are normal waveform contractions of the body of his esophagus, we will then perform a hiatal hernia repair as well as a Jessica fundoplication. Under the same anesthesia, we then proceeded with colonoscopy portion of procedure. A digital rectal examination was performed, which revealed mild anal stenosis. There were no hemorrhoids identified as well as no bleeding. Normal sphincter tone was felt and there were no palpable masses. Prostate gland was palpable and appeared normal. The endoscope was then intubated to the anus and rectum gently insufflated. The endoscope was then advanced through the valves of Call of the rectum with no polyps or neoplasms identified. We then proceeded through the sigmoid colon where mild sigmoid diverticulosis identified. There was no active bleeding identified as well as no inflammatory changes to indicate any active diverticulitis. The endoscope was then advanced to the remainder of the descending, transverse, ascending colon to the cecum. These segments were normal. There were no polyps or any neoplasms identified as well as no active bleeding sources. The endoscope was then slowly withdrawn while taking a second look and suctioning residual air with no additional findings. The patient tolerated this portion of the procedure well. We will recommend a high-fiber diet with at least 30 grams of fiber per day as well as at least 64 fluid ounces of water daily to promote soft stools on a daily basis. We will have him follow up in the office in approximately 2 weeks. Job ID: [id number] DocumentID: [id number] Dictated Date: 07/28/2017 14:38:12 Heavy Repairer Date: 07/28/2017 23:24:45 Dictated By: HARDY SEBASTIAN MD
[2017-07-29] MEDS ORDERED: PANTOPRAZOLE 40 MG (PROTONIX) TAB PO SCH (07:00)
== END 2017-07-28 19:29 | disposition home or self-care (01) ==
LOC: EDUNIT# 16:05 → ER 16:07 → UNDOADMOB 18:55 → ICU 18:55 → SDC 19:30 → UNDOADMOB 19:30 → ICU 07-27 15:22 → 4TH 07-27 17:25 → ICU 07-27 17:25 → 4TH 07-27 17:25 → SDC 07-28 19:29 → 4TH 07-28 19:50 → UNDODISOB 07-28 19:50
PROVIDERS: ATTEND Internal Medicine
DX: K21.0 Gastro-esophageal reflux disease with esophagitis (principal); K44.9 Diaphragmatic hernia without obstruction or gangrene; K25.9 Gastric ulcer, unspecified as acute or chronic, without hemorrhage or perforation; K29.70 Gastritis, unspecified, without bleeding; K57.30 Diverticulosis of large intestine without perforation or abscess without bleeding; K62.4 Stenosis of anus and rectum; D64.9 Anemia, unspecified; N39.0 Urinary tract infection, site not specified; R55 Syncope and collapse; I25.10 Atherosclerotic heart disease of native coronary artery without angina pectoris; I48.91 Unspecified atrial fibrillation; I95.0 Idiopathic hypotension; N18.9 Chronic kidney disease, unspecified; Z95.1 Presence of aortocoronary bypass graft; Z86.711 Personal history of pulmonary embolism; Z86.718 Personal history of other venous thrombosis and embolism; E78.00 Pure hypercholesterolemia, unspecified; I12.9 Hypertensive chronic kidney disease with stage 1 through stage 4 chronic kidney disease, or unspecified chronic kidney disease; N40.0 Benign prostatic hyperplasia without lower urinary tract symptoms; N31.9 Neuromuscular dysfunction of bladder, unspecified; Z95.0 Presence of cardiac pacemaker
CPT/HCPCS: 36415; 36430; 71045; 80048; 80053; 80061; 80320; 81000; 83735; 83874; 84484; 85025; 85610; 85730; 86850; 86900; 86901; 86920; 87088; 88305; 93005; 93041; 96360; 96361

== ENCOUNTER 2017-08-15 15:19 | Emergency (ER) | payer MEDICARE, MEDICAID ==
[~2017-08-15] VITALS: Ht 180.3 cm; Wt 93.1 kg
[~2017-08-15 15:19] MED LIST changes: +PANT40TA2 PO; +SUCR1TAB36 PO
--- NOTE | 2017-08-15 15:35 | ED General ---
General Chief Complaint: General Problems/Pain Stated Complaint: DIZZINESS Source of Information: Patient, EMS Exam Limitations: No Limitations History of Present Illness Date Seen by Provider: Aug 15, 2017 Time Seen by Provider: 15:30 Initial Comments The patient is 71-year-old male was brought to the emergency room by [facility] with complaints of lightheaded and dizziness. He reports he had a similar episode to this 3 weeks ago and his hemoglobin was low at this time. He reports that his lightheadedness is worse when he goes from a sitting to standing position. Timing/Duration: 1-3 Hours Allergies and Home Medications Allergies Coded Allergies: metoprolol (Unverified Allergy, Unknown, 09/18/14) "sunburn" rivaroxaban (Unverified Allergy, Unknown, 12/18/14) VOMITING/DIARRHEA Home Medications Multivitamin 1 Each Tablet, 1 TAB PO DAILY, (Reported) [place] 3 Polyunsat Fatty Acids 1,000 Mg Cap, 1,000 MG PO DAILY, (Reported) Pantoprazole Sodium 40 Mg Tablet.dr, 40 MG PO DAILY Prescribed by: KALIA WASHINGTON on 07/28/171934 Sucralfate 1 Gm Tablet, 1 GM PO ACHS Prescribed by: KALIA WASHINGTON on 07/28/171934 Sulfamethoxazole/Trimethoprim 1 Each Tablet, 1 EACH PO BID Prescribed by: PHANI VILLA on 08/15/171813 Patient Home Medication List Home Medication List Reviewed: Yes Review of Systems Constitutional: see HPI, dizziness, weakness EENTM: see HPI; No ear pain, No blurred vision Respiratory: see HPI; No dyspnea on exertion, No short of breath, No wheezing Cardiovascular: see HPI; No chest pain, No palpitations Gastrointestinal: see HPI; No abdominal pain Genitourinary: see HPI; No dysuria Musculoskeletal: see HPI; No back pain, No gout Skin: see HPI; No change in color, No change in hair/nails Psychiatric/Neurological: See HPI; Denies Anxiety, Denies Depressed Hematologic/Lymphatic: See HPI, Anemia; Denies Blood Clots, Denies Easy Bleeding Immunological/Allergic: see HPI; denies food allergy Past Ikoudzt-Xppdiu-Xplpuz Hx Past Med/Social Hx: Reviewed Nursing Past Med/Soc Hx Patient Social History Alcohol Beverage of Choice: Beer Drug of Choice: distant past history of marijuana use 2nd Hand Smoke Exposure: Yes (Father was a heavy smoker in his youth) Recent Hopitalizations: No Immunizations Up To Date Tetanus Booster (TDap): Unknown PED Vaccines UTD: Yes Date of Pneumonia Vaccine: Feb 28, 2013 Date of Influenza Vaccine: Dec 27, 2016 Seasonal Allergies Seasonal Allergies: No Past Medical History Surgeries: Yes CABG, Eye Surgery, Pacemaker, Vascular Surgery Respiratory: Yes Pneumonia, Pulmonary Embolism Currently Using CPAP: No Currently Using BIPAP: No Cardiac: Yes Cardiomyopathy, Coronary Artery Disease, Deep Vein Thrombosis, Heart Murmur, High Cholesterol, Hypertension, Irregular Heartbeat Neurological: No Reproductive Disorders: No Sexually Transmitted Disease: No HIV/AIDS: No Genitourinary: Yes (RETENTION) Benign Prostatic Hyperpl, Prostate Problems, Renal Failure, Neurogenic Bladder, UTI-Chronic Gastrointestinal: Yes Abdominal Hernia Musculoskeletal: Yes (L hip fx, right ankle broken) Fractures Endocrine: No HEENT: Yes Cataract Loss of Vision: Denies Hearing Impairment: Denies Cancer: No Psychosocial: No Integumentary: No Blood Disorders: No Family Medical History Reviewed Nursing Family Hx Cancer (LINING OF ABD CAVITY, AT AGE 80) 03 MOTHER Chest pain (FATHER OF NH AT AGE 83) 03 FATHER Congestive heart failure 03 FATHER Family history: Arthritis 03 MOTHER Family history: Cardiovascular disease 03 FATHER Heart disease 03 FATHER Hypercholesterolemia 03 FATHER 03 MOTHER Myocardial infarction 03 FATHER Prostate cancer (DIAGNOSED AT 70 OR 71 PER PT) 03 FATHER Stroke 09 SISTER Visual impairment (SISTER WEARS GLASSES ) 09 SISTER No Family History of: Abdominal aortic aneurysm Jorge's disease Alcoholism Aphasia Cancer of colon Cataract Congenital heart disease Cystic fibrosis Dementia Dysphagia Family history: Allergy Family history: Alzheimer's disease Family history: Asthma Family history: Breast disease Family history: Coronary thrombosis Family history: Diabetes mellitus Family history: Gastrointestinal disease Family history: Glaucoma Family history: Hypertension Family history: Osteoporosis Family history: Thyroid disorder Headache Hearing loss Hereditary disease History of - anemia History of - disorder History of - respiratory disease History of drug abuse Human immunodeficiency virus (HIV) seropositivity Infertile Kidney disease Malignant neoplasm of lung Parkinson's disease Psychotic disorder Seizure disorder Tuberculosis Cancer, CAD Over 55 Years Old, CVA Physical Exam Vital Signs Vital Signs - First Documented 08/15/17 15:25 Temp 97.0 Pulse 83 Resp 20 B/P (MAP) 123/86 (98) Pulse Ox 97 O2 Delivery Room Air Capillary Refill : General Appearance: No Apparent Distress, WD/WN Eyes: Bilateral Eye Normal Inspection, Bilateral Eye PERRL, Bilateral Eye EOMI HEENT: TMs Normal, Normal ENT Inspection, Pharynx Normal Neck: Full Range of Motion, Normal Inspection, Non Tender Respiratory: Chest Non Tender, Lungs Clear, Normal Breath Sounds, No Accessory Muscle Use Cardiovascular: Regular Rate, Rhythm, No Edema, No Gallop, No JVD, No Murmur Gastrointestinal: Normal Bowel Sounds, Non Tender, Soft Back: Normal Inspection, No CVA Tenderness, No Vertebral Tenderness Extremity: Normal Capillary Refill, Non Tender, No Calf Tenderness, Other (. Venous insufficiency appearance of lower extremity bilaterally) Neurologic/Psychiatric: Alert, Oriented x3, Normal Mood/Affect Skin: Normal Color, Warm/Dry Lymphatic: No Adenopathy Progress/Results/Core Measures Suspected Sepsis SIRS Temperature: Pulse: Respiratory Rate: Laboratory Tests 08/15/17 15:30: White Blood Count 4.0L Blood Pressure / Mean: Laboratory Tests 08/15/17 15:30: Creatinine 1.32H, Platelet Count 228, Total Bilirubin 0.8 Results/Orders Lab Results Laboratory Tests Test 08/15/17 15:30 08/15/17 16:25 Range/Units White Blood Count 4.0 L 4.3-11.0 10^3/uL Red Blood Count 4.26 L 4.35-5.85 10^6/uL Hemoglobin 10.4 L 13.3-17.7 G/DL Hematocrit 33 L 40-54 % Mean Corpuscular Volume 77 L 80-99 FL Mean Corpuscular Hemoglobin 24 L 25-34 PG Mean Corpuscular Hemoglobin Concent 32 32-36 G/DL Red Cell Distribution Width 19.4 H 10.0-14.5 % Platelet Count 228 130-400 10^3/uL Mean Platelet Volume 9.2 7.4-10.4 FL Neutrophils (%) (Auto) 51 42-75 % Lymphocytes (%) (Auto) 33 12-44 % Monocytes (%) (Auto) 13 H 0-12 % Eosinophils (%) (Auto) 2 0-10 % Basophils (%) (Auto) 1 0-10 % Neutrophils # (Auto) 2.0 1.8-7.8 X 10^3 Lymphocytes # (Auto) 1.3 1.0-4.0 X 10^3 Monocytes # (Auto) 0.5 0.0-1.0 X 10^3 Eosinophils # (Auto) 0.1 0.0-0.3 10^3/uL Basophils # (Auto) 0.1 0.0-0.1 10^3/uL Sodium Level 140 135-145 MMOL/L Potassium Level 4.5 3.6-5.0 MMOL/L Chloride Level 112 H 98-107 MMOL/L Carbon Dioxide Level 21 21-32 MMOL/L Anion Gap 7 5-14 MMOL/L Blood Urea Nitrogen 18 7-18 MG/DL Creatinine 1.32 H 0.60-1.30 MG/DL Estimat Glomerular Filtration Rate 53 BUN/Creatinine Ratio 14 Glucose Level 87 70-105 MG/DL Calcium Level 9.1 8.5-10.1 MG/DL Total Bilirubin 0.8 0.1-1.0 MG/DL Aspartate Amino Transf (AST/SGOT) 17 5-34 U/L Alanine Aminotransferase (ALT/SGPT) 13 0-55 U/L Alkaline Phosphatase 77 40-136 U/L Total Protein 6.7 6.4-8.2 GM/DL Albumin 4.1 3.2-4.5 GM/DL Serum Alcohol < 10 <10 MG/DL Urine Color YELLOW Urine Clarity CLEAR Urine pH 5 5-9 Urine Specific [place] 1.020 1.016-1.022 Urine Protein 1+ H NEGATIVE Urine Glucose (UA) NEGATIVE NEGATIVE Urine Ketones 1+ H NEGATIVE Urine Nitrite POSITIVE H NEGATIVE Urine Bilirubin 1+ H NEGATIVE Urine Urobilinogen NORMAL NORMAL MG/DL Urine Leukocyte Esterase 3+ H NEGATIVE Urine RBC (Auto) 1+ H NEGATIVE Urine RBC 2-5 H /HPF Urine WBC 50-100 H /HPF Urine Crystals NONE /LPF Urine Bacteria MODERATE H /HPF Urine Casts NONE /LPF Urine Mucus NEGATIVE /LPF Urine Culture Indicated YES My Orders Orders - PHANI VILLA APRN Cbc With Automated Diff (08/15/17 15:27) Comprehensive Metabolic Panel (08/15/17 15:27) Ekg Tracing (08/15/17 15:27) Ua Culture If Indicated (08/15/17 15:27) Accucheck Stat ONCE (08/15/17 15:27) Saline Lock/Iv-Start (08/15/17 15:27) Orthostatic Vital Signs (Adult (08/15/17 15:35) Ns Iv 500 Ml (Sodium Chloride 0.9%) (08/15/17 16:45) Urine Culture (08/15/17 16:25) Ns Iv 500 Ml (Sodium Chloride 0.9%) (08/15/17 17:30) Ceftriaxone Injection (Rocephin Injectio (08/15/17 17:30) Alcohol (08/15/17 17:16) Medications Given in ED Current Medications Medications Dose Ordered Sig/Sukhjinder Route Start Time Stop Time Status Last Admin Dose Admin Ceftriaxone Sodium 1000 mg/ Sodium Chloride 50 ml @ 100 mls/hr ONCE ONCE IV 08/15/17 17:30 08/15/17 17:59 DC 08/15/17 17:36 100 MLS/HR Vital Signs/I&O 08/15/17 08/15/17 15:25 16:20 Temp 97.0 Pulse 83 80 84 81 Resp 20 B/P (MAP) 123/86 (98) 110/64 (79) 112/71 (85) 96/61 (73) Pulse Ox 97 O2 Delivery Room Air Capillary Refill : Progress Note : Time: 16:24 Progress Note Patient's blood pressure did drop from 112/71-96/61 when he was transitioned from a sitting to a standing position. I have ordered a 500 mL bag of saline to see if the patient responds, patient does have a history of CHF this is why 500ml was ordered. Departure Communication (Admissions) 0322-blood pressure 123/84, heart rate 80s paced without ectopy, oxygen 99% on room air. He reports that he still feels very lightheaded. Discussed with Dr. Kirk. The patient can be discharged home with close follow-up this week. He does not have any indication for admission at this time. Impression Primary Impression: UTI (urinary tract infection) Qualified Codes: N39.0 - Urinary tract infection, site not specified Additional Impression: Lightheaded Disposition: 01 HOME, SELF-CARE Condition: Stable/Unchanged Departure-Patient Inst. Decision time for Depature: 17:12 Referrals: [facility] (PCP/Family) Primary Care Physician Patient Instructions: Urinary Tract Infection, Adult (DC), Fibromyalgia (DC) Add. Discharge Instructions: Take medications as directed. Increase her fluid intake to flush out your kidneys and to keep hydrated. We spoke with Dr. iKrk and she agrees with plan of discharge and close follow-up within 48 hours call first thing tomorrow morning for an appointment time. Return back to the emergency room for increasing dizziness, shortness of breath, chest pains, or any other concerns as needed. All discharge instructions reviewed with patient and/or family. Voiced understanding. Scripts Sulfamethoxazole/Trimethoprim (Bactrim Ds Tablet) 1 Each Tablet 1 EACH PO BID, #20 TAB Prov: PHANI VILLA APRN 08/15/17 PHANI VILLA APRN Aug 15, 2017 15:35
[2017-08-15 15:37] LABS: BASOPHILS # (AUTO) 0.1 10^3/uL (0.0-0.1); BASOPHILS % (AUTO) 1 % (0-10); EOSINOPHILS # (AUTO) 0.1 10^3/uL (0.0-0.3); EOSINOPHILS % (AUTO) 2 % (0-10); HEMATOCRIT 33 % (40-54); HEMOGLOBIN 10.4 G/DL (13.3-17.7); LYMPHOCYTES # (AUTO) 1.3 X 10^3 (1.0-4.0); LYMPHOCYTES % (AUTO) 33 % (12-44); MEAN CORPUSCULAR HEMOGLOBIN 24 PG (25-34); MEAN CORPUSCULAR HGB CONC 32 G/DL (32-36); MEAN CORPUSCULAR VOLUME 77 FL (80-99); MEAN PLATELET VOLUME 9.2 FL (7.4-10.4); MONOCYTES # (AUTO) 0.5 X 10^3 (0.0-1.0); MONOCYTES % (AUTO) 13 % (0-12); NEUTROPHILS % (AUTO) 51 % (42-75); PLATELET COUNT 228 10^3/uL (130-400); RED BLOOD COUNT 4.26 10^6/uL (4.35-5.85); RED CELL DISTRIBUTION WIDTH 19.4 % (10.0-14.5)
[2017-08-15 15:55] LABS: ALBUMIN 4.1 GM/DL (3.2-4.5); BILIRUBIN,TOTAL 0.8 MG/DL (0.1-1.0); CALCIUM 9.1 MG/DL (8.5-10.1); CREATININE SERUM 1.32 MG/DL (0.60-1.30); POTASSIUM 4.5 MMOL/L (3.6-5.0); TOTAL PROTEIN 6.7 GM/DL (6.4-8.2)
[2017-08-15 16:20] VITALS: BP_SYST 110; BP_SYST 112; BP_SYST 96; BP_DIAS 61; BP_DIAS 64; BP_DIAS 71
[2017-08-15 16:34] LABS: CLARITY,URINE CLEAR; COLOR,URINE YELLOW; GLUCOSE, URINE (UA) NEGATIVE (NEGATIVE); KETONES,URINE 1+ (NEGATIVE); LEUKOCYTE ESTERASE ,URINE 3+ (NEGATIVE); NITRITE,URINE POSITIVE (NEGATIVE); PH,URINE 5 (5-9); PROTEIN,URINE 1+ (NEGATIVE); UROBILINOGEN,URINE NORMAL (NORMAL)
[2017-08-15] MEDS ORDERED: NS IV 500 ML 500 ML IV SCH ×2 (16:45→17:30)
[2017-08-15 16:46] LABS: BACTERIA,URINE MODERATE /HPF; BILIRUBIN,URINE 1+ (NEGATIVE); WBC,URINE 50-100 /HPF
[2017-08-15] MEDS ORDERED: cefTRIAXone INJECTION 1,000 MG in NS (IVPB) 50 ML IV ONE (17:30)
[2017-08-15] MEDS ORDERED: SULF1TAB35 PO (18:14)
[2017-08-15 18:34] VITALS: BP 128/81
== END 2017-08-15 18:34 | disposition home or self-care (01) ==
LOC: EDUNIT# 15:19 → ER 15:20
DX: N39.0 Urinary tract infection, site not specified (principal); R42 Dizziness and giddiness; I25.10 Atherosclerotic heart disease of native coronary artery without angina pectoris; E78.00 Pure hypercholesterolemia, unspecified; I10 Essential (primary) hypertension; N40.0 Benign prostatic hyperplasia without lower urinary tract symptoms; Z87.81 Personal history of (healed) traumatic fracture; Z86.718 Personal history of other venous thrombosis and embolism; Z95.5 Presence of coronary angioplasty implant and graft; Z95.0 Presence of cardiac pacemaker; Z86.711 Personal history of pulmonary embolism; Z88.8 Allergy status to other drugs, medicaments and biological substances
CPT/HCPCS: 36415; 80053; 80320; 81000; 85025; 87077; 87088; 87186; 93005; 96361; 96365

== ENCOUNTER 2017-09-13 17:05 | Day surgery (SDC) | payer MEDICARE, MEDICAID ==
[~2017-09-13] VITALS: Ht 180.3 cm; Wt 93.2 kg
[2017-09-13] VITALS (9 sets, daily range): BP systolic 116–152; BP diastolic 54–97
[~2017-09-13 17:05] MED LIST changes: -AMIO200T2 PO; +AMIO200T4 PO; +SULF1TAB35 PO
[2017-09-13] MEDS ORDERED: DEXTROSE 50% 50 ML (IMS) SYR IV ONE (17:15)
[2017-09-13] MEDS ORDERED: ASPIRIN 81 MG CHEW (CHILDREN'S ASA) PO ONE (17:15)
[2017-09-13 17:21] LABS: BASOPHILS # (AUTO) 0.1 10^3/uL (0.0-0.1); BASOPHILS % (AUTO) 1 % (0-10); EOSINOPHILS # (AUTO) 0.1 10^3/uL (0.0-0.3); EOSINOPHILS % (AUTO) 3 % (0-10); HEMATOCRIT 35 % (40-54); LYMPHOCYTES # (AUTO) 1.5 X 10^3 (1.0-4.0); LYMPHOCYTES % (AUTO) 39 % (12-44); MEAN CORPUSCULAR HEMOGLOBIN 23 PG (25-34); MEAN CORPUSCULAR HGB CONC 32 G/DL (32-36); MEAN CORPUSCULAR VOLUME 74 FL (80-99); MEAN PLATELET VOLUME 10.4 FL (7.4-10.4); MONOCYTES # (AUTO) 0.6 X 10^3 (0.0-1.0); MONOCYTES % (AUTO) 14 % (0-12); NEUTROPHILS # (AUTO) 1.8 X 10^3 (1.8-7.8); NEUTROPHILS % (AUTO) 44 % (42-75); PLATELET COUNT 217 10^3/uL (130-400); RED BLOOD COUNT 4.72 10^6/uL (4.35-5.85); RED CELL DISTRIBUTION WIDTH 21.8 % (10.0-14.5)
[2017-09-13 17:40] LABS: INR 1.2 (0.8-1.4); PROTHROMBIN TIME PATIENT 15.2 SEC (12.2-14.7)
[2017-09-13 17:46] LABS: ALANINE AMINOTRANSFERASE 12 U/L (0-55); ALBUMIN 4.5 GM/DL (3.2-4.5); ALKALINE PHOSPHATASE 78 U/L (40-136); BILIRUBIN,TOTAL 0.8 MG/DL (0.1-1.0); BUN/CREATININE RATIO 11; CALCIUM 9.6 MG/DL (8.5-10.1); CARBON DIOXIDE 22 MMOL/L (21-32); CHLORIDE 109 MMOL/L (98-107); CREATININE SERUM 1.59 MG/DL (0.60-1.30); GFR ESTIMATED 43; GLUCOSE 83 MG/DL (70-105); MAGNESIUM 2.1 MG/DL (1.8-2.4); POTASSIUM 4.8 MMOL/L (3.6-5.0); SODIUM 137 MMOL/L (135-145); TOTAL PROTEIN 7.3 GM/DL (6.4-8.2)
--- NOTE | 2017-09-13 17:48 | Diagnostic Imaging Report ---
INDICATION: Chest pain. TIME OF EXAM: 05:35 p.m. Correlation is made with prior study from 07/26/2017. FINDINGS: Cardiac pacemaker remains in place. The lungs are clear. No infiltrate or failure is detected. No effusion or pneumothorax is seen. IMPRESSION: No acute cardiopulmonary process is detected. Dictated by: Dictated on workstation # [id number]
[2017-09-13 17:52] LABS: MYOGLOBIN SERUM 92.2 NG/ML (10.0-92.0)
--- NOTE | 2017-09-13 17:55 | ED General ---
General Chief Complaint: Dizziness/Syncope Stated Complaint: LIGHT HEADED Nursing Triage Note: PT REPORTS LIGHTHEADED SINCE HE WOKE UP THIS AM. PT REPORTS HE HAS HAD GENERALIZED WEAKNESS TODAY AND FELL BACKWARDS TWICE TODAY. PT DENIES ANY INJURY FORM FALL. PT STATES HE HAS HX OF ANEMIA. Nursing Sepsis Screen: No Definite Risk Source of Information: Patient Exam Limitations: No Limitations History of Present Illness Date Seen by Provider: Sep 13, 2017 Time Seen by Provider: 17:12 Initial Comments Here with report of lightheadedness since this morning. Reports that he was dizzy. Has had history of anemia. Reportedly fell back today but did not hurt himself a couple times due to weakness. Denies breathing problems currently. Does have central chest discomfort that he reports is related to his incisional hernia. Does have a long history of heart failure. Has had blood transfusion in the last month due to anemia. Timing/Duration: 12-24 Hours Severity: Moderate Associated Systoms: Chest Pain; No Cough, No Fever/Chills, No Nausea/Vomiting, No Shortness of Air; Weakness Allergies and Home Medications Allergies Coded Allergies: metoprolol (Unverified Allergy, Unknown, 09/18/14) "sunburn" rivaroxaban (Unverified Allergy, Unknown, 12/18/14) VOMITING/DIARRHEA Home Medications Multivitamin 1 Each Tablet, 1 TAB PO DAILY, (Reported) [place] 3 Polyunsat Fatty Acids 1,000 Mg Cap, 1,000 MG PO DAILY, (Reported) Pantoprazole Sodium 40 Mg Tablet.dr, 40 MG PO DAILY Prescribed by: KALIA WASHINGTON on 07/28/171934 Sucralfate 1 Gm Tablet, 1 GM PO ACHS Prescribed by: KALIA WASHINGTON on 07/28/171934 Sulfamethoxazole/Trimethoprim 1 Each Tablet, 1 EACH PO BID Prescribed by: PHANI VILLA on 08/15/171813 Patient Home Medication List Home Medication List Reviewed: Yes Review of Systems Constitutional: see HPI; No chills, No fever EENTM: no symptoms reported Respiratory: no symptoms reported; No cough, No short of breath Cardiovascular: see HPI, chest pain, edema; No palpitations Gastrointestinal: No abdominal pain, No nausea, No vomiting Genitourinary: no symptoms reported Musculoskeletal: no symptoms reported Skin: no symptoms reported Psychiatric/Neurological: No Symptoms Reported Hematologic/Lymphatic: See HPI, Anemia All Other Systems Reviewed Negative Unless Noted: Yes Past Ombanmf-Nhnbea-Fwghtx Hx Past Med/Social Hx: Reviewed Nursing Past Med/Soc Hx Patient Social History Alcohol Use: Rarely Uses Number of Drinks Today: AA Alcohol Beverage of Choice: Beer Recreational Drug Use: Yes (etoh) Drug of Choice: distant past history of marijuana use Smoking Status: Never a Smoker 2nd Hand Smoke Exposure: Yes (Father was a heavy smoker in his youth) Recent Foreign Travel: No Contact w/Someone Who Travel: No Recent Infectious Disease Expo: No Recent Hopitalizations: Yes (06/2017) Physical Abuse: No Sexual Abuse: No Mistreated: No Fear: No Immunizations Up To Date Tetanus Booster (TDap): Unknown PED Vaccines UTD: Yes Date of Pneumonia Vaccine: Feb 28, 2013 Date of Influenza Vaccine: Dec 27, 2016 Seasonal Allergies Seasonal Allergies: No Past Medical History Surgeries: Yes CABG, Eye Surgery, Pacemaker, Vascular Surgery Respiratory: Yes Pneumonia, Pulmonary Embolism Currently Using CPAP: No Currently Using BIPAP: No Cardiac: Yes (CHF) Cardiomyopathy, Coronary Artery Disease, Deep Vein Thrombosis, Heart Murmur, High Cholesterol, Hypertension, Irregular Heartbeat Neurological: No Reproductive Disorders: No Sexually Transmitted Disease: No HIV/AIDS: No Genitourinary: Yes (RETENTION) Benign Prostatic Hyperpl, Prostate Problems, Renal Failure, Neurogenic Bladder, UTI-Chronic Gastrointestinal: Yes Abdominal Hernia Musculoskeletal: Yes (L hip fx, right ankle broken) Fractures Endocrine: No HEENT: Yes Cataract Loss of Vision: Denies Hearing Impairment: Denies Cancer: No Psychosocial: No Nursing Suicide Risk Score: 0 Integumentary: No Blood Disorders: No (ANEMIA) Family Medical History Reviewed Nursing Family Hx Cancer (LINING OF ABD CAVITY, AT AGE 80) 03 MOTHER Chest pain (FATHER OF [place] AT AGE 83) 03 FATHER Congestive heart failure 03 FATHER Family history: Arthritis 03 MOTHER Family history: Cardiovascular disease 03 FATHER Heart disease 03 FATHER Hypercholesterolemia 03 FATHER 03 MOTHER Myocardial infarction 03 FATHER Prostate cancer (DIAGNOSED AT 70 OR 71 PER PT) 03 FATHER Stroke 09 SISTER Visual impairment (SISTER WEARS GLASSES ) 09 SISTER No Family History of: Abdominal aortic aneurysm Jorge's disease Alcoholism Aphasia Cancer of colon Cataract Congenital heart disease Cystic fibrosis Dementia Dysphagia Family history: Allergy Family history: Alzheimer's disease Family history: Asthma Family history: Breast disease Family history: Coronary thrombosis Family history: Diabetes mellitus Family history: Gastrointestinal disease Family history: Glaucoma Family history: Hypertension Family history: Osteoporosis Family history: Thyroid disorder Headache Hearing loss Hereditary disease History of - anemia History of - disorder History of - respiratory disease History of drug abuse Human immunodeficiency virus (HIV) seropositivity Infertile Kidney disease Malignant neoplasm of lung Parkinson's disease Psychotic disorder Seizure disorder Tuberculosis Cancer, CAD Over 55 Years Old, CVA Physical Exam Vital Signs Vital Signs - First Documented 09/13/17 17:16 Temp 97.0 Pulse 82 Resp 16 B/P (MAP) 131/82 (98) Pulse Ox 100 Capillary Refill : Less Than 3 Seconds Height, Weight, BMI Height: 5'11.00" Weight: 198lbs. 5.4oz. 89.758953um; 28.0 BMI Method:Stated General Appearance: No Apparent Distress, WD/WN HEENT: PERRL/EOMI, Pharynx Normal, Pale Conjunctivae (L), Pale Conjunctivae (R) Neck: Non Tender, Supple Respiratory: Lungs Clear, Normal Breath Sounds Cardiovascular: Regular Rate, Rhythm, No Murmur Gastrointestinal: Non Tender, Soft Back: Normal Inspection, No CVA Tenderness, No Vertebral Tenderness Extremity: Normal Range of Motion, Non Tender, Pedal Edema (1+ to the mid tibia bilateral) Neurologic/Psychiatric: Alert, Oriented x3 Skin: Normal Color, Warm/Dry Progress/Results/Core Measures Suspected Sepsis Recent Fever Within 48 Hours: No Infection Criteria Present: None New/Unexplained Altered Menta: No Sepsis Screen: No Definite Risk SIRS Temperature:97.0 Pulse: 82 Respiratory Rate: 16 Laboratory Tests 09/13/17 17:10: White Blood Count 4.0L Blood Pressure 131 /82 Mean: 98 Laboratory Tests 09/13/17 17:10: Creatinine 1.59H, INR Comment 1.2, Platelet Count 217, Total Bilirubin 0.8 Results/Orders Lab Results Laboratory Tests Test 09/13/17 17:10 09/13/17 17:13 09/13/17 18:04 Range/Units White Blood Count 4.0 L 4.3-11.0 10^3/uL Red Blood Count 4.72 4.35-5.85 10^6/uL Hemoglobin 11.0 L 13.3-17.7 G/DL Hematocrit 35 L 40-54 % Mean Corpuscular Volume 74 L 80-99 FL Mean Corpuscular Hemoglobin 23 L 25-34 PG Mean Corpuscular Hemoglobin Concent 32 32-36 G/DL Red Cell Distribution Width 21.8 H 10.0-14.5 % Platelet Count 217 130-400 10^3/uL Mean Platelet Volume 10.4 7.4-10.4 FL Neutrophils (%) (Auto) 44 42-75 % Lymphocytes (%) (Auto) 39 12-44 % Monocytes (%) (Auto) 14 H 0-12 % Eosinophils (%) (Auto) 3 0-10 % Basophils (%) (Auto) 1 0-10 % Neutrophils # (Auto) 1.8 1.8-7.8 X 10^3 Lymphocytes # (Auto) 1.5 1.0-4.0 X 10^3 Monocytes # (Auto) 0.6 0.0-1.0 X 10^3 Eosinophils # (Auto) 0.1 0.0-0.3 10^3/uL Basophils # (Auto) 0.1 0.0-0.1 10^3/uL Prothrombin Time 15.2 H 12.2-14.7 SEC INR Comment 1.2 0.8-1.4 Activated Partial Thromboplast Time 29 24-35 SEC Sodium Level 137 135-145 MMOL/L Potassium Level 4.8 3.6-5.0 MMOL/L Chloride Level 109 H 98-107 MMOL/L Carbon Dioxide Level 22 21-32 MMOL/L Anion Gap 6 5-14 MMOL/L Blood Urea Nitrogen 18 7-18 MG/DL Creatinine 1.59 H 0.60-1.30 MG/DL Estimat Glomerular Filtration Rate 43 BUN/Creatinine Ratio 11 Glucose Level 83 70-105 MG/DL Calcium Level 9.6 8.5-10.1 MG/DL Magnesium Level 2.1 1.8-2.4 MG/DL Total Bilirubin 0.8 0.1-1.0 MG/DL Aspartate Amino Transf (AST/SGOT) 21 5-34 U/L Alanine Aminotransferase (ALT/SGPT) 12 0-55 U/L Alkaline Phosphatase 78 40-136 U/L Myoglobin 92.2 H 10.0-92.0 NG/ML Troponin I < 0.30 <0.30 NG/ML B-Type Natriuretic Peptide 303.3 H <100.0 PG/ML Total Protein 7.3 6.4-8.2 GM/DL Albumin 4.5 3.2-4.5 GM/DL Glucometer 56 *L 97 70-110 MG/DL My Orders Orders - MARKIE FREIRE MD Cbc With Automated Diff (09/13/17 17:15) Magnesium (09/13/17 17:15) Chest 1 View, Ap/Pa Only (09/13/17 17:15) Ekg Tracing (09/13/17 17:15) Cardiac Profile 1 (09/13/17:15) Comprehensive Metabolic Panel (09/13/17:15) Myoglobin Serum (09/13/17 17:15) Protime With Inr (09/13/17:15) Partial Thromboplastin Time (09/13/17:15) O2 (09/13/17:15) Monitor-Rhythm Ecg Trace Only (09/13/17:15) Lipid Panel (09/14/17 06:00) Aspirin Chewable Tablet (Baby Aspirin Ch (09/13/17 17:15) Saline Lock/Iv-Start (09/13/17:15) D50w (Emergency) Syringe (Dextrose 50% 5 (09/13/17 17:15) BNP (09/13/17 17:17) Alcohol (09/13/17 18:11) Medications Given in ED Current Medications Medications Dose Ordered Sig/Sukhjinder Route Start Time Stop Time Status Last Admin Dose Admin Aspirin 324 mg ONCE ONCE PO 09/13/17 17:15 09/13/17 17:18 DC 09/13/17 17:29 324 MG Dextrose 50 ml ONCE ONCE IV 09/13/17 17:15 09/13/17 17:18 DC 09/13/17 17:29 50 ML Vital Signs/I&O 09/13/17 17:16 Temp 97.0 Pulse 82 Resp 16 B/P (MAP) 131/82 (98) Pulse Ox 100 Capillary Refill : Less Than 3 Seconds Blood Pressure Mean: 98 Point of Care Testing Finger Stick Blood Glucose: 56 Blood Glucose Action Taken: NOTIFIED Progress Note : Progress Note Seen and evaluated. IV, labs, EKG and chest x-ray ordered. ASA 324 mg by mouth given. Monitor patient. Patient declined pain medicine for the incisional hernia/chest pain. 1811: Labs reviewed. Myoglobin slightly elevated. He is not anemic at this point. Patient is high risk so observation for chest pain indicated. I discussed this with Dr. Sevilla she agrees and accepts patient for admission, observation status. 182: I have consulted Dr. Meng relating to the incisional hernia. Dr. Meng states that they are just waiting for cardiology evaluation and clearance so that they can fix that hernia. He will see the patient in consult. I have discussed the case with Dr. Sullivan on-call for cardiology. He is covering but Dr. Santos is his primary industrial servicer. He will be consulted in the morning with Dr. Sullivan covering overnight. All findings and concerns discussed with patient he agrees with admission. ECG Initial ECG Impression Date: Sep 13, 2017 Initial ECG Impression Time: 17:25 Initial ECG Rate: 81 Comment Paced atrial rhythm with left bundle branch block. No evidence of ST elevation PA. Similar to previous of 08/15/17. Interpreted by me. Diagnostic Imaging Diagonstic Imaging: Xray Plain Films/CT/US/NM/MRI: chest Comments NAME: JORGE ALBERTO [facility]DWELL [facility] REC#: [id number] PT STATUS: REG ER : 1945 PHYSICIAN: MARKIE FREIRE MD ADMIT DATE: 09/13/17/ER Draft Date of Exam:09/13/17 CHEST 1 VIEW, AP/PA ONLY INDICATION: Chest pain. TIME OF EXAM: 05:35 p.m. Correlation is made with prior study from 07/26/2017. FINDINGS: Cardiac pacemaker remains in place. The lungs are clear. No infiltrate or failure is detected. No effusion or pneumothorax is seen. IMPRESSION: No acute cardiopulmonary process is detected. Dictated on workstation # [id number] Dict: 09/13/17 1741 Trans: 09/13/17 1747 [id number] Interpreted by: GINETTE SIMS MD Electronically signed by: Departure Communication (Admissions) Time/Spoke to Admitting Phy: 18:12 Time/Spoke to Consulting Phy: 18:20 Impression Primary Impression: Chest pain Qualified Codes: R07.9 - Chest pain, unspecified Disposition: ADMITTED INPATIENT Condition: Stable Admissions Decision to Admit Reason: Admit from ER (General) Decision to Admit/Date: Sep 13, 2017 Time/Decision to Admit Time: 18:12 Departure-Patient Inst. Referrals: [facility] (PCP/Family) Primary Care Physician MARKIE FREIRE MD Sep 13, 2017 17:55
[2017-09-13] MEDS ORDERED: NITROGLYCERIN 0.4 MG SL TABS BTL 25'S SL PRN (19:30)
[2017-09-13] MEDS ORDERED: morphine INJ 4 MG/ML 1 ML (VIAL/SYRINGE) IV PRN (19:45)
[2017-09-13] MEDS ORDERED: RT-ALBUTEROL SULF 2.5 MG/3 ML PRE-MIX VIAL INH PRN (21:15)
[2017-09-13 23:29] LABS: CREATINE KINASE 108 U/L (30-200)
[2017-09-13 23:36] LABS: MYOGLOBIN SERUM 64.6 NG/ML (10.0-92.0)
[2017-09-14] VITALS (7 sets, daily range): BP systolic 114–158; BP diastolic 54–84
[2017-09-14 06:03] LABS: BASOPHILS # (AUTO) 0.1 10^3/uL (0.0-0.1); BASOPHILS % (AUTO) 1 % (0-10); EOSINOPHILS # (AUTO) 0.1 10^3/uL (0.0-0.3); EOSINOPHILS % (AUTO) 3 % (0-10); HEMATOCRIT 33 % (40-54); HEMOGLOBIN 10.5 G/DL (13.3-17.7); LYMPHOCYTES # (AUTO) 1.3 X 10^3 (1.0-4.0); LYMPHOCYTES % (AUTO) 32 % (12-44); MEAN CORPUSCULAR HEMOGLOBIN 24 PG (25-34); MEAN CORPUSCULAR HGB CONC 32 G/DL (32-36); MEAN CORPUSCULAR VOLUME 74 FL (80-99); MEAN PLATELET VOLUME 10.2 FL (7.4-10.4); MONOCYTES # (AUTO) 0.7 X 10^3 (0.0-1.0); MONOCYTES % (AUTO) 16 % (0-12); NEUTROPHILS % (AUTO) 48 % (42-75); PLATELET COUNT 205 10^3/uL (130-400); RED BLOOD COUNT 4.44 10^6/uL (4.35-5.85); RED CELL DISTRIBUTION WIDTH 21.2 % (10.0-14.5); WHITE BLOOD COUNT 4.1 10^3/uL (4.3-11.0)
[2017-09-14 06:22] LABS: ALBUMIN 3.9 GM/DL (3.2-4.5); BILIRUBIN,TOTAL 0.6 MG/DL (0.1-1.0); CALCIUM 9.3 MG/DL (8.5-10.1); CREATININE SERUM 1.26 MG/DL (0.60-1.30); POTASSIUM 4.3 MMOL/L (3.6-5.0); TOTAL PROTEIN 6.3 GM/DL (6.4-8.2)
[2017-09-14] MEDS ORDERED: OMEP20CA12 PO (09:20)
[2017-09-14] MEDS: ASPIRIN E.C. 81 MG (ECOTRIN) TAB PO SCH (09:20)
--- NOTE | 2017-09-14 09:42 | Consultation-Cardiology ---
HPI-Cardiology Cardiology Consultation: Date of Consultation 09/14/17 Date of Admission Attending Physician Nay Perea MD Admitting Physician [place] Consulting Physician Gabrielle SANTOS MD HPI: Time Seen by Provider: 09:45 Chief Complaint: Chest pain This is a 71-year-old gentleman who has history of CAD, status post CABG, status post permanent pacemaker. He has history of significant postural hypotension and could not tolerate either beta myrna or GABRIEL inhibitors. He also has history of DVT and pulmonary embolism and was on Eliquis. He also has history of significant renal bleeding and was taken off Eliquis and Plavix. He presents with complain of upper abdominal pain. He denies any significant shortness of breath. He denies any PND or orthopnea. Review of Systems-Cardiology Review of Systems Constitutional: As described under HPI; No As described under HPI, No no symptoms reported, No chills, No fever, No lightheadedness Eyes: No As described under HPI, No no symptoms reported, No blindness, No blurred vision, No contact lenses, No drainage, No decreased acuity, No foreign body sensation, No pain, No vision change Ears/Nose/Throat: No As described under HPI, No no symptoms reported, No chronic hearing loss, No ear discharge, No ear pain, No nasal drainage, No ulcerations Respiratory: No no symptoms reported; As described under HPI; No As described under HPI, No cough, No orthopnea, No shortness of breath, No SOB with excertion Cardiovascular: No no symptoms reported; As described under HPI; No As described under HPI; chest pain; No edema, No irregular heart rate, No lightheadedness, No palpitations Gastrointestinal: No no symptoms reported, No As described under HPI, No abdomen distended; abdominal pain; No blood streaked bowels, No constipation, No diarrhea, No nausea, No vomiting, No stool coloration changes Genitourinary: No As described under HPI, No burning, No dysuria, No discharge , No frequency, No flank pain, No hematuria, No urgency Skin: No rash, No skin related problems, No ulcerations Psychiatric/Neurological: No anxiety, No depression, No seizure, No focal weakness, No syncope Hematologic: No bleeding abnormalities All Other Systems Reviewed Negative Unless Noted: Yes [id number] Hx Patient Social History Alcohol Use: Rarely Uses Recreational Drug Use: Yes (etoh) Drug of Choice: distant past history of marijuana use Smoking Status: Never a Smoker 2nd Hand Smoke Exposure: Yes (Father was a heavy smoker in his youth) Recent Foreign Travel: No Recent Infectious Disease Expo: No Physical Abuse Screen: No Sexual Abuse: No Immunizations Up To Date Tetanus Booster (TDap): Unknown Date of Pneumonia Vaccine: Feb 28, 2013 Date of Influenza Vaccine: Dec 27, 2016 Past Medical History PMH As described under Assessment. Family Medical History Family History: Cancer (LINING OF ABD CAVITY, AT AGE 80) 03 MOTHER Chest pain (FATHER OF [place] AT AGE 83) 03 FATHER Congestive heart failure 03 FATHER Family history: Arthritis 03 MOTHER Family history: Cardiovascular disease 03 FATHER Heart disease 03 FATHER Hypercholesterolemia 03 FATHER 03 MOTHER Myocardial infarction 03 FATHER Prostate cancer (DIAGNOSED AT 70 OR 71 PER PT) 03 FATHER Stroke 09 SISTER Visual impairment (SISTER WEARS GLASSES ) 09 SISTER No Family History of: Abdominal aortic aneurysm Jorge's disease Alcoholism Aphasia Cancer of colon Cataract Congenital heart disease Cystic fibrosis Dementia Dysphagia Family history: Allergy Family history: Alzheimer's disease Family history: Asthma Family history: Breast disease Family history: Coronary thrombosis Family history: Diabetes mellitus Family history: Gastrointestinal disease Family history: Glaucoma Family history: Hypertension Family history: Osteoporosis Family history: Thyroid disorder Headache Hearing loss Hereditary disease History of - anemia History of - disorder History of - respiratory disease History of drug abuse Human immunodeficiency virus (HIV) seropositivity Infertile Kidney disease Malignant neoplasm of lung Parkinson's disease Psychotic disorder Seizure disorder Tuberculosis Allergies and Home Medications Allergies Coded Allergies: metoprolol (Unverified Allergy, Unknown, 09/18/14) "sunburn" rivaroxaban (Unverified Allergy, Unknown, 12/18/14) VOMITING/DIARRHEA Home Medications Multivitamin 1 Each Tablet, 1 TAB PO DAILY, (Reported) [place] 3 Polyunsat Fatty Acids 1,000 Mg Cap, 1,000 MG PO DAILY, (Reported) Omeprazole 20 Mg Capsule.dr, 20 MG PO BID, (Reported) Patient Home Medication List Home Medication List Reviewed: Yes Physical Exam-Cardiology Physical Exam Vital Signs/I&O 09/14/17 09/14/17 09/14/17 09/14/17 04:00 07:00 08:39 11:30 Temp 97.2 96.2 98.0 Pulse 83 79 99 69 Resp 20 20 20 B/P (MAP) 122/66 (84) 135/64 (87) 128/77 (94) Pulse Ox 97 92 99 O2 Delivery Room Air Room Air Room Air 09/14/17 13:00 Pulse 80 09/13/17 23:59 Intake Total 475 ml Output Total 0 ml Balance 475 ml Capillary Refill : Less Than 3 Seconds Constitutional: appears stated age, AAO x 3; No apparent distress; well- developed, well-nourished HEENT: PERRL; No discharge; hearing is well preserved, oral hygience is good; No ulceration, No xanthelasmas are seen Neck: No carotid bruit; carotid pulses are 2 + bilaterally Respiratory: No accessory muscle use, No respiratory distress, No chest tender , No chest expansion is symmetric; chest is bilaterally symmetric; No lungs clear to percussion; lungs clear to auscultation; No crackles, No rhonchi, No rales, No stridor, No wheezing, No pleural rub, No other Cardiovascular: regular rate-rhythm; No irregularly irregular, No extra beats, No parasternal heave is noted, No JVD, No edema, No bradycardia, No tachycardia , No point of maximal impulse, No cardiac thrills are palpable; S1 and S2; No gallop/S3, No gallop/S4, No diastolic murmur, No systolic murmur, No friction rub, No click, No other Gastrointestinal: No tender, No soft, No round, No distended, No pulsatile mass , No organomegaly, No guarding, No rebound, No tenderness, No hernia, No mass, No audible bowel sounds, No abnormal bowel sounds, No abdominal bruits, No spleenomegaly, No other Rectal: deferred Extremities: No normal range of motion, No non-tender, No normal inspection, No pedal edema, No calf tenderness, No normal capillary refill, No pelvis stable , No calf tenderness, No inflammation, No pedal edema, No slow capillary refill , No swelling, No other, No abrasion, No clubbing, No cyanosis, No ecchymosis, No laceration, No no lower extremity edema bilateral, No significant edema, No tenderness, No wound Neurologic/Psychiatric: no motor/sensory deficits, alert, normal mood/affect, oriented x 3, power is 5/5 both on sides Skin: No normal color, No warm/dry, No cyanosis, No cool, No diaphoresis, No damp, No ecchymosis, No jaundice, No mottled, No pallor, No rash, No tattoos/ piercings, No ulcerations, No rash on exposed areas, No ulcerations on exposed areas, No other Data Review Labs Laboratory Tests 09/13/17 17:10: White Blood Count 4.0L, Red Blood Count 4.72, Hemoglobin 11.0L, Hematocrit 35L, Mean Corpuscular Volume 74L, Mean Corpuscular Hemoglobin 23L, Mean Corpuscular Hemoglobin Concent 32, Red Cell Distribution Width 21.8H, Platelet Count 217, Mean Platelet Volume 10.4, Neutrophils (%) (Auto) 44, Lymphocytes (%) (Auto) 39 , Monocytes (%) (Auto) 14H, Eosinophils (%) (Auto) 3, Basophils (%) (Auto) 1, Neutrophils # (Auto) 1.8, Lymphocytes # (Auto) 1.5, Monocytes # (Auto) 0.6, Eosinophils # (Auto) 0.1, Basophils # (Auto) 0.1, Prothrombin Time 15.2H, INR Comment 1.2, Activated Partial Thromboplast Time 29, Sodium Level 137, Potassium Level 4.8, Chloride Level 109H, Carbon Dioxide Level 22, Anion Gap 6, Blood Urea Nitrogen 18, Creatinine 1.59H, Estimat Glomerular Filtration Rate 43 , BUN/Creatinine Ratio 11, Glucose Level 83, Calcium Level 9.6, Magnesium Level 2.1, Total Bilirubin 0.8, Aspartate Amino Transf (AST/SGOT) 21, Alanine Aminotransferase (ALT/SGPT) 12, Alkaline Phosphatase 78, Myoglobin 92.2H, Troponin I < 0.30, B-Type Natriuretic Peptide 303.3H, Total Protein 7.3, Albumin 4.5, Serum Alcohol < 10 09/13/17 17:13: Glucometer 56*L 09/13/17 18:04: Glucometer 97 09/13/17 23:05: Myoglobin 64.6, Troponin I < 0.30, Total Creatine Kinase 108 09/14/17 05:45: White Blood Count 4.1L, Red Blood Count 4.44, Hemoglobin 10.5L, Hematocrit 33L, Mean Corpuscular Volume 74L, Mean Corpuscular Hemoglobin 24L, Mean Corpuscular Hemoglobin Concent 32, Red Cell Distribution Width 21.2H, Platelet Count 205, Mean Platelet Volume 10.2, Neutrophils (%) (Auto) 48, Lymphocytes (%) (Auto) 32 , Monocytes (%) (Auto) 16H, Eosinophils (%) (Auto) 3, Basophils (%) (Auto) 1, Neutrophils # (Auto) 2.0, Lymphocytes # (Auto) 1.3, Monocytes # (Auto) 0.7, Eosinophils # (Auto) 0.1, Basophils # (Auto) 0.1, Sodium Level 137, Potassium Level 4.3, Chloride Level 109H, Carbon Dioxide Level 22, Anion Gap 6, Blood Urea Nitrogen 17, Creatinine 1.26, Estimat Glomerular Filtration Rate 56, BUN/ Creatinine Ratio 13, Glucose Level 83, Calcium Level 9.3, Total Bilirubin 0.6, Aspartate Amino Transf (AST/SGOT) 20, Alanine Aminotransferase (ALT/SGPT) 9, Alkaline Phosphatase 72, Total Protein 6.3L, Albumin 3.9, Triglycerides Level 85 , Cholesterol Level 163, LDL Cholesterol Direct 101, VLDL Cholesterol 17, HDL Cholesterol 48 ECG Impression ECG Initial ECG Rhythm: Normal Sinus A/P-Cardiology Assessment/Admission Diagnosis CAD, CABG, Chest pain, PPM DVT/PE Hyperlipidemia, Hypertension/Previous postural hypotension, Microcytic anemia, Ischemic Dilated Cardiomyopathy/Mild Acute on chronic CHF, Incisional hernia. Plan CAD, CABG, Chest pain, ACS ruled out. Will continue aspirin. Will need Plavix however patient needs to have surgery for incisional hernia therefore was started after wards. We will also add statin therapy. PPM: Patient needs to follow-up in our office and we'll set up device interrogation. DVT/PE: Eliquis was previously discontinued because of urinary bleeding. Hyperlipidemia, restart Lipitor. Hypertension/Previous postural hypotension, blood pressure is better. We will consider beta blockers and lisinopril in the near future. Microcytic anemia, likely secondary to urinary bleeding. Will defer to the primary team. Ischemic Dilated Cardiomyopathy/Mild Acute on chronic CHF: Could not tolerate BB and GABRIEL inhibitors due hypotension. EF still 30-35%. Will recommend Life vest. ICD upgrade to his PPM in the near future. Incisional hernia. Patient will be considered at moderate risk for major adverse perioperative cardiac events undergoing an intermediate risk noncardiac surgery. I don't see any cardiac contraindication to the above-mentioned procedure. Chronic kidney disease: Referral to nephrology is recommended. Strongly recommend following the patient in office in one week. Thank you for your consultation. Please call me if you have any questions. Jordyn Santos MD, FACP, FACC, FSCAI, FHRS, CCDS Interventional Cardiology Cardiac Electrophysiology Vascular Medicine and Endovascular Interventions Clinical Quality Measures DVT/VTE Risk/Contraindication: Risk Factor Score Per Nursin RFS Level Per Nursing on Admit: 4+=Very High Gabrielle SANTOS MD Sep 14, 2017 09:42
--- NOTE | 2017-09-14 10:13 | Consultation ---
History of Present Illness History of Present Illness Patient Consulted On(lisa/time) 09/14/17 10:08 Date Seen by Provider: Sep 14, 2017 Time Seen by Provider: 08:50 History of Present Illness Consult requested by Dr. Perea for incisional hernia. Patient is a 71-year-old male who had seen producing the clinic for incisional hernia. After having a CABG he later developed an incisional hernia on the upper portion of the abdomen. This causes him moderate to severe discomfort at times. Patient states that this area seems to be causing him pain in the epigastric region and into the chest. Patient went to the emergency part of her feeling lightheaded this and having more chest pain which she feels is related to the incisional hernia. Patient has noticed that the bulge has gotten bigger and not reducing as much. Patient would like to get this repaired. He denies any nausea vomiting fever sweats chills shortness of breath or chest pain at this time. Activity makes the bulge worse. Lying on his back makes it feel a bit better. Allergies and Home Medications Allergies Coded Allergies: metoprolol (Unverified Allergy, Unknown, 09/18/14) "sunburn" rivaroxaban (Unverified Allergy, Unknown, 12/18/14) VOMITING/DIARRHEA Home Medications Multivitamin 1 Each Tablet, 1 TAB PO DAILY, (Reported) [place] 3 Polyunsat Fatty Acids 1,000 Mg Cap, 1,000 MG PO DAILY, (Reported) Omeprazole 20 Mg Capsule.dr, 20 MG PO BID, (Reported) Patient Home Medication List Home Medication List Reviewed: Yes Past [id number]-Wtxexi Hx Patient Social History Alcohol Use: Rarely Uses Number of Drinks Today: AA Recreational Drug Use: Yes (etoh) Drug of Choice: distant past history of marijuana use Smoking Status: Never a Smoker 2nd Hand Smoke Exposure: Yes (Father was a heavy smoker in his youth) Recent Foreign Travel: No Contact w/Someone Who Travel: No Recent Infectious Disease Expo: No Recent Hopitalizations: Yes (06/2017) Physical Abuse Screen: No Sexual Abuse: No Immunizations Up To Date Tetanus Booster (TDap): Unknown PED Vaccines UTD: Yes Date of Pneumonia Vaccine: Feb 28, 2013 Date of Influenza Vaccine: Dec 27, 2016 Seasonal Allergies Seasonal Allergies: No Surgeries History of Surgeries: Yes Surgeries: CABG, Eye Surgery, Pacemaker, Vascular Surgery Respiratory History of Respiratory Disorde: Yes Respiratory Disorders: Pneumonia, Pulmonary Embolism Cardiovascular History of Cardiac Disorders: Yes (CHF) Cardiac Disorders: Cardiomyopathy, Coronary Artery Disease, Deep Vein Thrombosis, Heart Murmur, High Cholesterol, Hypertension, Irregular Heartbeat Neurological History of Neurological Disord: No Reproductive System Hx Reproductive Disorders: No Sexually Transmitted Disease: No HIV/AIDS: No Genitourinary History of Genitourinary Disor: Yes (RETENTION) Genitourinary Disorders: Benign Prostatic Hyperpl, Prostate Problems, Renal Failure, Neurogenic Bladder, UTI-Chronic Gastrointestinal History of Gastrointestinal Di: Yes Gastrointestinal Disorders: Abdominal Hernia Musculoskeletal History of Musculoskeletal Dis: Yes (L hip fx, right ankle broken) Musculoskeletal Disorders: Fractures Endocrine History of Endocrine Disorders: No HEENT History of HEENT Disorders: Yes HEENT Disorders: Cataract Loss of Vision: Denies Hearing Impairment: Denies Cancer History of Cancer: No Psychosocial History of Psychiatric Problem: No Integumentary History of Skin or Integumenta: No Blood Transfusions History of Blood Disorders: No (ANEMIA) Family Medical History Significant Family History: Cancer, CAD Over 55 Years Old, CVA Family Medial History: Cancer (LINING OF ABD CAVITY, AT AGE 80) 03 MOTHER Chest pain (FATHER OF ME AT AGE 83) 03 FATHER Congestive heart failure 03 FATHER Family history: Arthritis 03 MOTHER Family history: Cardiovascular disease 03 FATHER Heart disease 03 FATHER Hypercholesterolemia 03 FATHER 03 MOTHER Myocardial infarction 03 FATHER Prostate cancer (DIAGNOSED AT 70 OR 71 PER PT) 03 FATHER Stroke 09 SISTER Visual impairment (SISTER WEARS GLASSES ) 09 SISTER No Family History of: Abdominal aortic aneurysm Jorge's disease Alcoholism Aphasia Cancer of colon Cataract Congenital heart disease Cystic fibrosis Dementia Dysphagia Family history: Allergy Family history: Alzheimer's disease Family history: Asthma Family history: Breast disease Family history: Coronary thrombosis Family history: Diabetes mellitus Family history: Gastrointestinal disease Family history: Glaucoma Family history: Hypertension Family history: Osteoporosis Family history: Thyroid disorder Headache Hearing loss Hereditary disease History of - anemia History of - disorder History of - respiratory disease History of drug abuse Human immunodeficiency virus (HIV) seropositivity Infertile Kidney disease Malignant neoplasm of lung Parkinson's disease Psychotic disorder Seizure disorder Tuberculosis Review of Systems-General Constitutional: see HPI EENTM: no symptoms reported Respiratory: no symptoms reported Cardiovascular: see HPI Gastrointestinal: see HPI Genitourinary: no symptoms reported Musculoskeletal: no symptoms reported Skin: no symptoms reported Psychiatric/Neurological: No Symptoms Reported Physical Exam-General Problems Physical Exam Vital Signs Vital Signs - First Documented 09/13/17 09/14/17 17:16 00:38 Temp 97.0 Pulse 82 Resp 16 B/P (MAP) 131/82 (98) Pulse Ox 100 O2 Delivery Room Air Capillary Refill : Less Than 3 Seconds General Appearance: no apparent distress HEENT: PERRL/EOMI Neck: supple Respiratory: no respiratory distress, no accessory muscle use Cardiovascular: regular rate, rhythm Gastrointestinal: soft, tenderness (Reducible incisional hernia in the epigastric region moderate tenderness with palpation, slightly increase in size since last seen him) Rectal: deferred Back: normal inspection Extremities: non-tender Neurologic/Psychiatric: hoop coiler II-XII nml as tested, no motor/sensory deficits, alert, normal mood/affect, oriented x 3 Skin: normal color, warm/dry Lymphatic: no adenopathy Data Review Labs Laboratory Tests 09/13/17 17:10: White Blood Count 4.0L, Red Blood Count 4.72, Hemoglobin 11.0L, Hematocrit 35L, Mean Corpuscular Volume 74L, Mean Corpuscular Hemoglobin 23L, Mean Corpuscular Hemoglobin Concent 32, Red Cell Distribution Width 21.8H, Platelet Count 217, Mean Platelet Volume 10.4, Neutrophils (%) (Auto) 44, Lymphocytes (%) (Auto) 39 , Monocytes (%) (Auto) 14H, Eosinophils (%) (Auto) 3, Basophils (%) (Auto) 1, Neutrophils # (Auto) 1.8, Lymphocytes # (Auto) 1.5, Monocytes # (Auto) 0.6, Eosinophils # (Auto) 0.1, Basophils # (Auto) 0.1, Prothrombin Time 15.2H, INR Comment 1.2, Activated Partial Thromboplast Time 29, Sodium Level 137, Potassium Level 4.8, Chloride Level 109H, Carbon Dioxide Level 22, Anion Gap 6, Blood Urea Nitrogen 18, Creatinine 1.59H, Estimat Glomerular Filtration Rate 43 , BUN/Creatinine Ratio 11, Glucose Level 83, Calcium Level 9.6, Magnesium Level 2.1, Total Bilirubin 0.8, Aspartate Amino Transf (AST/SGOT) 21, Alanine Aminotransferase (ALT/SGPT) 12, Alkaline Phosphatase 78, Myoglobin 92.2H, Troponin I < 0.30, B-Type Natriuretic Peptide 303.3H, Total Protein 7.3, Albumin 4.5, Serum Alcohol < 10 09/13/17 17:13: Glucometer 56*L 09/13/17 18:04: Glucometer 97 09/13/17 23:05: Myoglobin 64.6, Troponin I < 0.30, Total Creatine Kinase 108 09/14/17 05:45: White Blood Count 4.1L, Red Blood Count 4.44, Hemoglobin 10.5L, Hematocrit 33L, Mean Corpuscular Volume 74L, Mean Corpuscular Hemoglobin 24L, Mean Corpuscular Hemoglobin Concent 32, Red Cell Distribution Width 21.2H, Platelet Count 205, Mean Platelet Volume 10.2, Neutrophils (%) (Auto) 48, Lymphocytes (%) (Auto) 32 , Monocytes (%) (Auto) 16H, Eosinophils (%) (Auto) 3, Basophils (%) (Auto) 1, Neutrophils # (Auto) 2.0, Lymphocytes # (Auto) 1.3, Monocytes # (Auto) 0.7, Eosinophils # (Auto) 0.1, Basophils # (Auto) 0.1, Sodium Level 137, Potassium Level 4.3, Chloride Level 109H, Carbon Dioxide Level 22, Anion Gap 6, Blood Urea Nitrogen 17, Creatinine 1.26, Estimat Glomerular Filtration Rate 56, BUN/ Creatinine Ratio 13, Glucose Level 83, Calcium Level 9.3, Total Bilirubin 0.6, Aspartate Amino Transf (AST/SGOT) 20, Alanine Aminotransferase (ALT/SGPT) 9, Alkaline Phosphatase 72, Total Protein 6.3L, Albumin 3.9, Triglycerides Level 85 , Cholesterol Level 163, LDL Cholesterol Direct 101, VLDL Cholesterol 17, HDL Cholesterol 48 Assessment/Plan Assessment/Plan Assessment/Plan Incisional hernia, chest pain Patient was discuss need for cardiac clearance to proceed with incisional hernia repair. Would do as an outpatient basis. Patient agrees with plan. We'll await cardiac recommendations. Clinical Quality Measures DVT/VTE Risk/Contraindication: Risk Factor Score Per Nursin RFS Level Per Nursing on Admit: 4+=Very High PATSY MCADAMS DO Sep 14, 2017 10:13
--- NOTE | 2017-09-14 15:08 | Short Stay Summary ---
History of Present Illness History of Present Illness Date of Admission Sep 13, 2017 at 6:34 pm Date of Discharge Attending Physician Robe Perea MD Admitting Physician [facility] Consult Allergies and Home Medications Allergies Coded Allergies: metoprolol (Unverified Allergy, Unknown, 09/18/14) "sunburn" rivaroxaban (Unverified Allergy, Unknown, 12/18/14) VOMITING/DIARRHEA Home Medications Multivitamin 1 Each Tablet, 1 TAB PO DAILY, (Reported) [place] 3 Polyunsat Fatty Acids 1,000 Mg Cap, 1,000 MG PO DAILY, (Reported) Omeprazole 20 Mg Capsule.dr, 20 MG PO BID, (Reported) Past Mrdntdt-Ettjiq-Wbzvqy Hx Patient Social History Alcohol Use: Rarely Uses Number of Drinks Today: AA Alcohol Beverage of Choice: Beer Recreational Drug Use: Yes (etoh) Drug of Choice: distant past history of marijuana use Smoking Status: Never a Smoker 2nd Hand Smoke Exposure: Yes (Father was a heavy smoker in his youth) Physical Abuse Screen: No Sexual Abuse: No Recent Foreign Travel: No Contact w/other who traveled: No Recent Hopitalizations: Yes (06/2017) Recent Infectious Disease Expo: No Immunizations Up To Date Tetanus Booster (TDap): Unknown Pediatric: Yes Date of Pneumonia Vaccine: Feb 28, 2013 Date of Influenza Vaccine: Dec 27, 2016 Seasonal Allergies Seasonal Allergies: No Surgeries Yes CABG, Eye Surgery, Pacemaker, Vascular Surgery Respiratory Yes Pulmonary Embolism Currently Using CPAP: No Currently Using BIPAP: No Cardiovascular Yes (CHF) Cardiomyopathy, Coronary Artery Disease, Deep Vein Thrombosis, Heart Murmur, High Cholesterol, Hypertension, Irregular Heartbeat Neurological No Reproductive System Hx Reproductive Disorders: No Sexually Transmitted Disease: No HIV/AIDS: No Genitourinary Yes (RETENTION) Benign Prostatic Hyperpl, Prostate Problems, Renal Failure, Neurogenic Bladder, UTI-Chronic Gastrointestinal Yes Abdominal Hernia Musculoskeletal Yes (L hip fx, right ankle broken) Fractures Endocrine History of Endocrine Disorders: No HEENT History of HEENT Disorders: Yes HEENT Disorders: Cataract Loss of Vision: Denies Hearing Impairment: Denies Cancer No Psychosocial History of Psychiatric Problem: No Integumentary History of Skin or Integumenta: No Blood Transfusions History of Blood Disorders: No (ANEMIA) Family Medical History Significant Family History: Cancer, CAD Over 55 Years Old, CVA Family Hx: Cancer (LINING OF ABD CAVITY, AT AGE 80) 03 MOTHER Chest pain (FATHER OF [place] AT AGE 83) 03 FATHER Congestive heart failure 03 FATHER Family history: Arthritis 03 MOTHER Family history: Cardiovascular disease 03 FATHER Heart disease 03 FATHER Hypercholesterolemia 03 FATHER 03 MOTHER Myocardial infarction 03 FATHER Prostate cancer (DIAGNOSED AT 70 OR 73 PER PT) 03 FATHER Stroke 09 SISTER Visual impairment (SISTER WEARS GLASSES ) 09 SISTER No Family History of: Abdominal aortic aneurysm Jorge's disease Alcoholism Aphasia Cancer of colon Cataract Congenital heart disease Cystic fibrosis Dementia Dysphagia Family history: Allergy Family history: Alzheimer's disease Family history: Asthma Family history: Breast disease Family history: Coronary thrombosis Family history: Diabetes mellitus Family history: Gastrointestinal disease Family history: Glaucoma Family history: Hypertension Family history: Osteoporosis Family history: Thyroid disorder Headache Hearing loss Hereditary disease History of - anemia History of - disorder History of - respiratory disease History of drug abuse Human immunodeficiency virus (HIV) seropositivity Infertile Kidney disease Malignant neoplasm of lung Parkinson's disease Psychotic disorder Seizure disorder Tuberculosis Physical Exam Vital Signs Vital Signs - First Documented 09/13/17 09/14/17 17:16 00:38 Temp 97.0 Pulse 82 Resp 16 B/P (MAP) 131/82 (98) Pulse Ox 100 O2 Delivery Room Air Capillary Refill : Less Than 3 Seconds Height, Weight, BMI Height: 5'11.00" Weight: 197lbs. 12.0oz. [id number]; 27.6 BMI Method:Stated Clinical Quality Measures DVT/VTE Risk/Contraindication: Risk Factor Score Per Nursin RFS Level Per Nursing on Admit: 4+=Very High Short Stay Diagnosis Conclusion Labs Laboratory Tests 09/13/17 17:10: White Blood Count 4.0L, Red Blood Count 4.72, Hemoglobin 11.0L, Hematocrit 35L, Mean Corpuscular Volume 74L, Mean Corpuscular Hemoglobin 23L, Mean Corpuscular Hemoglobin Concent 32, Red Cell Distribution Width 21.8H, Platelet Count 217, Mean Platelet Volume 10.4, Neutrophils (%) (Auto) 44, Lymphocytes (%) (Auto) 39 , Monocytes (%) (Auto) 14H, Eosinophils (%) (Auto) 3, Basophils (%) (Auto) 1, Neutrophils # (Auto) 1.8, Lymphocytes # (Auto) 1.5, Monocytes # (Auto) 0.6, Eosinophils # (Auto) 0.1, Basophils # (Auto) 0.1, Prothrombin Time 15.2H, INR Comment 1.2, Activated Partial Thromboplast Time 29, Sodium Level 137, Potassium Level 4.8, Chloride Level 109H, Carbon Dioxide Level 22, Anion Gap 6, Blood Urea Nitrogen 18, Creatinine 1.59H, Estimat Glomerular Filtration Rate 43 , BUN/Creatinine Ratio 11, Glucose Level 83, Calcium Level 9.6, Magnesium Level 2.1, Total Bilirubin 0.8, Aspartate Amino Transf (AST/SGOT) 21, Alanine Aminotransferase (ALT/SGPT) 12, Alkaline Phosphatase 78, Myoglobin 92.2H, Troponin I < 0.30, B-Type Natriuretic Peptide 303.3H, Total Protein 7.3, Albumin 4.5, Serum Alcohol < 10 09/13/17 17:13: Glucometer 56*L 09/13/17 18:04: Glucometer 97 09/13/17 23:05: Myoglobin 64.6, Troponin I < 0.30, Total Creatine Kinase 108 09/14/17 05:45: White Blood Count 4.1L, Red Blood Count 4.44, Hemoglobin 10.5L, Hematocrit 33L, Mean Corpuscular Volume 74L, Mean Corpuscular Hemoglobin 24L, Mean Corpuscular Hemoglobin Concent 32, Red Cell Distribution Width 21.2H, Platelet Count 205, Mean Platelet Volume 10.2, Neutrophils (%) (Auto) 48, Lymphocytes (%) (Auto) 32 , Monocytes (%) (Auto) 16H, Eosinophils (%) (Auto) 3, Basophils (%) (Auto) 1, Neutrophils # (Auto) 2.0, Lymphocytes # (Auto) 1.3, Monocytes # (Auto) 0.7, Eosinophils # (Auto) 0.1, Basophils # (Auto) 0.1, Sodium Level 137, Potassium Level 4.3, Chloride Level 109H, Carbon Dioxide Level 22, Anion Gap 6, Blood Urea Nitrogen 17, Creatinine 1.26, Estimat Glomerular Filtration Rate 56, BUN/ Creatinine Ratio 13, Glucose Level 83, Calcium Level 9.3, Total Bilirubin 0.6, Aspartate Amino Transf (AST/SGOT) 20, Alanine Aminotransferase (ALT/SGPT) 9, Alkaline Phosphatase 72, Total Protein 6.3L, Albumin 3.9, Triglycerides Level 85 , Cholesterol Level 163, LDL Cholesterol Direct 101, VLDL Cholesterol 17, HDL Cholesterol 48 GAULT,ROBE R MD Sep 14, 2017 3:08 pm
--- NOTE | 2017-09-14 15:31 | History & Physicial (CHS) ---
HPI History of Present Illness: 71 yo M that presents to ER with chest pain. Patient has recent h/o CABG and has incisional hernia that causes him pain when he coughs or sneezes. He had plans to get hernia repaired but needed surgical clearance. States that the pain is not similar to prior to CABG. States that he is having normal bowel movements w/o blood in stool. Denies missing any doses of medications. Source: patient, family Exam Limitations: no limitations Date seen by provider: Sep 14, 2017 Time Seen by Provider: 10:45 Attending Physician Robe Perea MD PCP [facility] Consult Date of Admission Sep 13, 2017 at 6:34 pm Home Medications Home Medications Reviewed patient Home Medication Reconciliation performed by pharmacy medication reconciliations cathodic protection technician and/or nursing. Patients Allergies have been reviewed. Allergies Coded Allergies: metoprolol (Unverified Allergy, Unknown, 09/18/14) "sunburn" rivaroxaban (Unverified Allergy, Unknown, 12/18/14) VOMITING/DIARRHEA JQY-Lmielv-Qyravk Hx Patient Social History Living Status: Home Alcohol Use: Rarely Uses Recreational Drug Use: Yes (etoh) Drug of Choice: distant past history of marijuana use Smoking Status: Never a Smoker 2nd Hand Smoke Exposure: Yes (Father was a heavy smoker in his youth) Recent Foreign Travel: No Contact w/other who traveled: No Recent Hopitalizations: Yes (06/2017) Recent Infectious Disease Expo: No Physical Abuse Screen: No Sexual Abuse: No Immunizations Up To Date Tetanus Booster (TDap): Unknown Date of Pneumonia Vaccine: Feb 28, 2013 Date of Influenza Vaccine: Dec 27, 2016 Past Medical History PMHx: PE: Unable to tolerate blood thinners Chronic systolic CHF EF 40% echo 11/2016 CAD s/p quintuple bypass 07/2016 ([facility] Dewey in [place]) 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 HTN Orthostatic hypotension PSurghx: Coronary artery bypass Family Medical History Significant Family History: Cancer, CAD Over 55 Years Old, CVA Family History: Cancer (LINING OF ABD CAVITY, AT AGE 80) 03 MOTHER Chest pain (FATHER OF [place] AT AGE 83) 03 FATHER Congestive heart failure 03 FATHER Family history: Arthritis 03 MOTHER Family history: Cardiovascular disease 03 FATHER Heart disease 03 FATHER Hypercholesterolemia 03 FATHER 03 MOTHER Myocardial infarction 03 FATHER Prostate cancer (DIAGNOSED AT 70 OR 71 PER PT) 03 FATHER Stroke 09 SISTER Visual impairment (SISTER WEARS GLASSES ) 09 SISTER No Family History of: Abdominal aortic aneurysm Baraga's disease Alcoholism Aphasia Cancer of colon Cataract Congenital heart disease Cystic fibrosis Dementia Dysphagia Family history: Allergy Family history: Alzheimer's disease Family history: Asthma Family history: Breast disease Family history: Coronary thrombosis Family history: Diabetes mellitus Family history: Gastrointestinal disease Family history: Glaucoma Family history: Hypertension Family history: Osteoporosis Family history: Thyroid disorder Headache Hearing loss Hereditary disease History of - anemia History of - disorder History of - respiratory disease History of drug abuse Human immunodeficiency virus (HIV) seropositivity Infertile Kidney disease Malignant neoplasm of lung Parkinson's disease Psychotic disorder Seizure disorder Tuberculosis Review of Systems (CHC) Constitutional: no symptoms reported; No fever, No malaise, No weakness EENTM: no symptoms reported; No blurred vision, No double vision Respiratory: no symptoms reported; No cough, No dyspnea on exertion, No short of breath Cardiovascular: chest pain; No edema, No palpitations Gastrointestinal: abdominal pain (epigastric pain); No constipation, No diarrhea, No nausea, No vomiting Genitourinary: no symptoms reported; No dysuria, No frequency, No hematuria Musculoskeletal: no symptoms reported; No back pain, No joint pain, No muscle pain Skin: no symptoms reported; No lesions, No rash Psychiatric/Neurological: No Symptoms Reported; Denies Anxiety, Denies Depressed, Denies Headache, Denies Weakness Reviewed Test Results Reviewed Test Results Lab Laboratory Tests Test 09/13/17 17:10 09/13/17 17:13 09/13/17 18:04 09/13/17 23:05 Range/Units White Blood Count 4.0 L 4.3-11.0 10^3/uL Red Blood Count 4.72 4.35-5.85 10^6/uL Hemoglobin 11.0 L 13.3-17.7 G/DL Hematocrit 35 L 40-54 % Mean Corpuscular Volume 74 L 80-99 FL Mean Corpuscular Hemoglobin 23 L 25-34 PG Mean Corpuscular Hemoglobin Concent 32 32-36 G/DL Red Cell Distribution Width 21.8 H 10.0-14.5 % Platelet Count 217 130-400 10^3/uL Mean Platelet Volume 10.4 7.4-10.4 FL Neutrophils (%) (Auto) 44 42-75 % Lymphocytes (%) (Auto) 39 12-44 % Monocytes (%) (Auto) 14 H 0-12 % Eosinophils (%) (Auto) 3 0-10 % Basophils (%) (Auto) 1 0-10 % Neutrophils # (Auto) 1.8 1.8-7.8 X 10^3 Lymphocytes # (Auto) 1.5 1.0-4.0 X 10^3 Monocytes # (Auto) 0.6 0.0-1.0 X 10^3 Eosinophils # (Auto) 0.1 0.0-0.3 10^3/uL Basophils # (Auto) 0.1 0.0-0.1 10^3/uL Prothrombin Time 15.2 H 12.2-14.7 SEC INR Comment 1.2 0.8-1.4 Activated Partial Thromboplast Time 29 24-35 SEC Sodium Level 137 135-145 MMOL/L Potassium Level 4.8 3.6-5.0 MMOL/L Chloride Level 109 H 98-107 MMOL/L Carbon Dioxide Level 22 21-32 MMOL/L Anion Gap 6 5-14 MMOL/L Blood Urea Nitrogen 18 7-18 MG/DL Creatinine 1.59 H 0.60-1.30 MG/DL Estimat Glomerular Filtration Rate 43 BUN/Creatinine Ratio 11 Glucose Level 83 70-105 MG/DL Calcium Level 9.6 8.5-10.1 MG/DL Magnesium Level 2.1 1.8-2.4 MG/DL Total Bilirubin 0.8 0.1-1.0 MG/DL Aspartate Amino Transf (AST/SGOT) 21 5-34 U/L Alanine Aminotransferase (ALT/SGPT) 12 0-55 U/L Alkaline Phosphatase 78 40-136 U/L Myoglobin 92.2 H 64.6 10.0-92.0 NG/ML Troponin I < 0.30 < 0.30 <0.30 NG/ML B-Type Natriuretic Peptide 303.3 H <100.0 PG/ML Total Protein 7.3 6.4-8.2 GM/DL Albumin 4.5 3.2-4.5 GM/DL Serum Alcohol < 10 <10 MG/DL Glucometer 56 *L 97 70-110 MG/DL Total Creatine Kinase 108 30-200 U/L Test 09/14/17 05:45 Range/Units White Blood Count 4.1 L 4.3-11.0 10^3/uL Red Blood Count 4.44 4.35-5.85 10^6/uL Hemoglobin 10.5 L 13.3-17.7 G/DL Hematocrit 33 L 40-54 % Mean Corpuscular Volume 74 L 80-99 FL Mean Corpuscular Hemoglobin 24 L 25-34 PG Mean Corpuscular Hemoglobin Concent 32 32-36 G/DL Red Cell Distribution Width 21.2 H 10.0-14.5 % Platelet Count 205 130-400 10^3/uL Mean Platelet Volume 10.2 7.4-10.4 FL Neutrophils (%) (Auto) 48 42-75 % Lymphocytes (%) (Auto) 32 12-44 % Monocytes (%) (Auto) 16 H 0-12 % Eosinophils (%) (Auto) 3 0-10 % Basophils (%) (Auto) 1 0-10 % Neutrophils # (Auto) 2.0 1.8-7.8 X 10^3 Lymphocytes # (Auto) 1.3 1.0-4.0 X 10^3 Monocytes # (Auto) 0.7 0.0-1.0 X 10^3 Eosinophils # (Auto) 0.1 0.0-0.3 10^3/uL Basophils # (Auto) 0.1 0.0-0.1 10^3/uL Sodium Level 137 135-145 MMOL/L Potassium Level 4.3 3.6-5.0 MMOL/L Chloride Level 109 H 98-107 MMOL/L Carbon Dioxide Level 22 21-32 MMOL/L Anion Gap 6 5-14 MMOL/L Blood Urea Nitrogen 17 7-18 MG/DL Creatinine 1.26 0.60-1.30 MG/DL Estimat Glomerular Filtration Rate 56 BUN/Creatinine Ratio 13 Glucose Level 83 70-105 MG/DL Calcium Level 9.3 8.5-10.1 MG/DL Total Bilirubin 0.6 0.1-1.0 MG/DL Aspartate Amino Transf (AST/SGOT) 20 5-34 U/L Alanine Aminotransferase (ALT/SGPT) 9 0-55 U/L Alkaline Phosphatase 72 40-136 U/L Total Protein 6.3 L 6.4-8.2 GM/DL Albumin 3.9 3.2-4.5 GM/DL Triglycerides Level 85 <150 MG/DL Cholesterol Level 163 < 200 MG/DL LDL Cholesterol Direct 101 1-129 MG/DL VLDL Cholesterol 17 5-40 MG/DL HDL Cholesterol 48 40-60 MG/DL Radiology Date of Exam: 09/13/17 CHEST 1 VIEW, AP/PA ONLY INDICATION: Chest pain. TIME OF EXAM: 05:35 p.m. Correlation is made with prior study from 07/26/2017. FINDINGS: Cardiac pacemaker remains in place. The lungs are clear. No infiltrate or failure is detected. No effusion or pneumothorax is seen. IMPRESSION: No acute cardiopulmonary process is detected. Physical Exam-(CHC) Physical Exam Vital Signs VS - Last 72 Hours, by Label 09/13/17 09/13/17 09/13/17 09/13/17 17:16 18:45 19:13 19:28 Temp 97.0 97.6 Pulse 82 80 82 79 Resp 16 18 18 B/P (MAP) 131/82 (98) 137/91 134/95 152/97 Pulse Ox 100 100 98 99 09/13/17 09/13/17 09/13/17 09/13/17 19:42 19:58 20:13 20:44 Pulse 70 80 62 81 B/P (MAP) 141/92 138/91 135/91 Pulse Ox 98 95 98 09/13/17 09/13/17 09/13/17 09/13/17 21:10 21:30 22:30 23:30 Pulse 100 77 80 82 B/P (MAP) 137/80 127/67 116/54 Pulse Ox 98 97 99 98 09/14/17 09/14/17 09/14/17 09/14/17 00:38 01:00 04:00 07:00 Temp 97.6 97.2 Pulse 80 77 83 79 Resp 20 20 B/P (MAP) 116/54 (74) 122/66 (84) Pulse Ox 98 97 O2 Delivery Room Air Room Air 09/14/17 09/14/17 09/14/17 09/14/17 08:39 11:30 13:00 15:40 Temp 96.2 98.0 97.7 Pulse 99 69 80 80 Resp 20 20 18 B/P (MAP) 135/64 (87) 128/77 (94) 116/72 (87) Pulse Ox 92 99 99 O2 Delivery Room Air Room Air Room Air Capillary Refill : Less Than 3 Seconds General Appearance: WD/WN, no apparent distress HEENT: PERRL/EOMI Neck: non-tender Respiratory: chest non-tender, lungs clear, normal breath sounds, no respiratory distress, no accessory muscle use Cardiovascular: normal peripheral pulses, regular rate, rhythm, no edema, no murmur Gastrointestinal: normal bowel sounds, soft, tenderness (epigastric tenderness with hernia) Extremities: normal range of motion, non-tender, no pedal edema, no calf tenderness, normal capillary refill Neurologic/Psychiatric: automatic grinder operator II-XII nml as tested, no motor/sensory deficits, alert, normal mood/affect, oriented x 3 Skin: normal color, warm/dry Lymphatic: no adenopathy Assessment/Plan Assessment/Plan Admission Status: Observation (1) Chest pain Status: Acute Assessment & Plan: - High risk patient s/p CABG last month, CE neg, pain likely 2/2 to incisional hernia - Echo today - Cardiology consulted Qualifiers: Qualified Codes: R07.9 - Chest pain, unspecified (2) Incisional hernia Status: Acute Assessment & Plan: - Dr Meng consulted - Cardiac clearance needed for surgery Qualifiers: Qualified Codes: K43.2 - Incisional hernia without obstruction or gangrene (3) Microcytic anemia Status: Acute Assessment & Plan: - Iron studies pending (4) CAD (coronary artery disease) of bypass graft Status: Chronic Assessment & Plan: - Patient not currently on antiplatelet therapy due to hematuria and not on ACEI or BB due to hypotension Qualifiers: Qualified Codes: I25.810 - Atherosclerosis of coronary artery bypass graft(s ) without angina pectoris (5) Renal insufficiency Status: Acute Assessment & Plan: - Conservative IVF hydration (6) Systolic CHF Status: Chronic Qualifiers: Qualified Codes: I50.22 - Chronic systolic (congestive) heart failure (7) Chronic pulmonary embolism Status: Chronic Assessment & Plan: - Patient not on blood thinner due to hematuria, no hypoxia currently Qualifiers: Qualified Codes: I27.82 - Chronic pulmonary embolism Clinical Quality Measures DVT/VTE Risk/Contraindication: Risk Factor Score Per Nursin RFS Level Per Nursing on Admit: 4+=Very High Copy Copies To 1: [facility] RO[facility] Peng MD Sep 14, 2017 15:31
--- NOTE | 2017-09-14 16:12 | Physical Therapy Evaluation ---
PT Evaluation-General Medical Diagnosis Admission Date Sep 13, 2017 at 18:34 Medical Diagnosis: chest pain Onset Date: Sep 13, 2017 Therapy Diagnosis Therapy Diagnosis: weakness; abn gait Height/Weight Height (Feet): 5 Height (Inches): 11.00 Weight (Pounds): 197 Weight (Ounces): 12.0 Precautions Precautions/Isolations: Standard Precautions Weight Bear Status Right Lower Extremity: Right Weight Bearing/Tolerated Left Lower Extremity: Left Weight Bearing/Tolerated Referral Physician: Brit Reason for Referral: Evaluation/Treatment Medical History Pertinent Medical History: CABG, CAD, HTN, PVD, Renal Insufficiency Additional Medical History Hx of PE; EF 40%, CABG Current History Pt presented to ER with complaints of chest pain; pt now complaining of dizziness with standing, recent falls and intermittent nausea/headache with the dizziness. Reports he had to "prop" himself up at times when he is standing and feels dizzy. Reviewed History: Yes Social History Home: Single Level Current Living Status: Alone Entry Into Home: Stairs With Railing Prior/Core FIM Prior Level of Function Functional [place] Measure 0=Not Assessed/NA 4=Minimal Assistance 1=Total Assistance 5=Supervision or Setup 2=Maximal Assistance 6=Modified [place] 3=Moderate Assistance 7=Complete [place] Bed Mobility: 7 Transfers (B,C,W/C) (FIM): 7 Gait: 7 Pt walks throughout town ([place]), rides his bike. Active and mobile PT Evaluation-Current Subjective Reports he is fearful of falling at home and reports the dizziness comes without warning and he falls. Objective Patient Orientation: Person, Place, Time, Situation Problem Solving: Good ROM/Strength ROM Lower Extremities WNL Strength Lower Extremities WNL Integumentary/Posture Integumentary refer to nursing notes Bowel Incontinence: No Bladder Incontinence: No Posture normal and symmetrical Neuromuscular (Tone, Coordination, Reflexes) wNL Sensory Vision: Functional Hearing: Functional Hand Dominance: Right Sensation Right Lower Extremit: Intact Sensation Left Lower Extremity: Intact Transfers Functional [place] Measure 0=Not Assessed/NA 4=Minimal Assistance 1=Total Assistance 5=Supervision or Setup 2=Maximal Assistance 6=Modified [place] 3=Moderate Assistance 7=Complete [place] Transfers (B, C, W/C) (FIM): 5 SBA with all transfers for safety due to complaints of dizziness with standing. BP measurements taken: supine 116/72; seated EOB 114/71 and standing 120/84; BP taken post walking 120/69 Gait Mode of Locomotion: Walk Anticipated Mode of Locomotion: Walk Gait (FIM): 4 (CGA for safety due to reports of recent falls) Distance (FIM): 3=150 ft Gait Assistive Device: FWW Comments/Gait Description 250 ft with FWW with CGA but no noted LOB episode or need for assist from this therapist. 1 standing rest break due to pt reports of dizziness or needing to rest due to not feeling well. No extra support provided other than CGA. Balance Sitting Static: Good Sitting Dynamic: Good Standing Static: Good Standing Dynamic: Good Assessment/Needs Pt reports episodes of dizziness in standing with recent falls at home. He was able to transition and move with therapy without outside assist needed. His BP appears stable with transitional movements. Unsure of cause of dizziness at this time. If he does not have an "episode", he seems to mobilize well and safely. Will monitor 1 additional visit tomorrow to ensure safety with mobility. Rehab Potential: Good PT Skilled Nursing Goals Skilled Nursing Goals PT Slot Tag Inserter Goals Time Frame: Sep 16, 2017 Transfers (B,C,W/C) (FIM): 6 Gait (FIM): 6 Gait distance (FIM): 3=150 ft Gait Assistive Device: FWW PT Plan Problem List Problem List: Activity Tolerance, Safety, Gait Treatment/Plan Treatment Plan: Continue Plan of Care Treatment Plan: Education, Functional Activity Bianca, Functional Strength, Gait , Safety, Transfers Treatment Duration: Sep 16, 2017 Frequency: 5 times per week Estimated Hrs Per Day: .25 hour per day Patient and/or Family Agrees t: Yes Safety Risks/Education Patient Education: Gait Training, Transfer Techniques, Safety Issues Teaching Recipient: Patient Teaching Methods: Discussion Response to Teaching: Reinforcement Needed Time/GCodes Time In: 1535 Time Out: 1600 Total Billed Treatment Time: 25 Total Billed Treatment co treat with OT PT eval 10 minutes. EVL and a visit. G Codes Necessary: Yes PT/OT Therapy GCodes Therapy Functional Limitation: Physical Therapy Test(s)/Tool used to determine: Level of Assistance Scale Functional Limitation-Current Charge Code: MOBCUR Modifier: CJ Functional Limitation-Goal Charge Code: MOBGOAL Modifier: JAKY FREEMAN PT Sep 14, 2017 16:12
--- NOTE | 2017-09-14 16:21 | Occupational Therapy Eval ---
OT Evaluation-General/PLF Medical Diagnosis Admission Date Sep 13, 2017 at 18:34 Medical Diagnosis: Dizziness Onset Date: Sep 13, 2017 Therapy Diagnosis Therapy Diagnosis: Weakness Height/Weight Height (Feet): 5 Height (Inches): 11.00 Weight (Pounds): 197 Weight (Ounces): 12.0 Precautions Precautions/Isolations: Standard Precautions Weight Bear Status Weight Bearing Restriction: Weight Bearing/Tolerated Referral Physician: Dr. Perea Referral Reason: Activity Tolerance, Self Care, Evaluation/Treatment, Strengthening/ROM Medical History Pertinent Medical History: CABG, CAD, HTN, PVD, Renal Insufficiency Current History Pt. presents stating that he has been very dizzy at home. Also reports that he has "fallen" a couple of times at home. Reviewed History: Yes Social History Home: Single Level Current Living Status: Alone Entry Into Home: Stairs Without Railing Steps Into Home: 2 ADL-Prior Level of Function ADL PLOF Comments Pt. states that he rides a bike around town. States that he is able to bathe and dress self. DME/Equipment: Shower DME/Equipment Comments Pt. reports that he has a walker but does not use it. Drive Self: No OT Current Status Subjective No pain reported. However, pt. states that he feels dizzy and is light headed. Appearance Pt. agrees to work with therapy. Mental Status/Objective Patient Orientation: Person, Place Current Upper Extremity ROM WFL Upper Extremity Strength WFL ADL-Treatment Functional [place] Measure 0=Not Assessed/NA 4=Minimal Assistance 1=Total Assistance 5=Supervision or Setup 2=Maximal Assistance 6=Modified [place] 3=Moderate Assistance 7=Complete IndependenceIRFPAI Quality Coding Scale 6 Independent with activity with or without an assistive device 5 Patient requires set up or clean up by helper. Patient completes activity by themselves 4 Supervision or touching assist (CGA). [place] provide cues , steadying assist 3 The helper provides less than half the effort to complete the activity 2 The helper provides more than half the effort to complete the activity 1 Dependent. The helper does all the effort to complete an activity 7 Patient refused to complete or attempt activity 9 The patient did not perform the activity before the current illness or injury 88 Not attempted due to Medical conditions or safety concerns Lower Body Dressing (FIM): 7 (To don shoes) Transfers (B, C, W/C) (FIM): 4 (Please see note) Other Treatments OT/PT co-treated due to pt. report of severe dizziness. Nursing assessing BP as therapy came into room. Laying- 116/72, Sitting- 114/71, Standing 120/84. Pt. agrees to ambulate with therapy but states that he is "unsure" of himself. OT focused on assessing LE dressing. Pt. is able to bend over and don sandals, including fastening them. PT assesses transfers and mobility. Both therapists provide skilled assistance to ambulate with walker. Please see PT note for distance. Pt. able to ambulate with walker but reports feeling dizzy and had to stop and rest in standing position. After rest break, pt. able to ambulate back to room. BP taken after walk and is 120/69. Pt. is up on side of bed with all needs met. Education OT Patient Education: Correct positioning, Progress toward Goal/Update tx plan , Purpose of tx/functional activities, Reviewed precautions, Rehab process, Safety issues, Transfer techniques Teaching Recipient: Patient Teaching Methods: Demonstration, Discussion Response to Teaching: Verbalize Understanding, Return Demonstration OT Short Term Goals Short Term Goals 1=Demonstrate adherence to instructed precautions during ADL tasks. 2=Patient will verbalize/demonstrate understanding of assistive devices/ modifications for ADL. 3=Patient will improve strength/tolerance for activity to enable patient to perform ADL's. OT Fdc Goals Fdc Goals Time Frame: Sep 21, 2017 Eating (FIM): 7 Grooming(FIM): 6 Bathing(FIM): 6 Upper Body Dressing(FIM): 6 Lower Body Dressing(FIM): 6 Toileting(FIM): 6 Transfers (B,C,W/C) (FIM): 6 Toilet/Commode Transfer(FIM): 6 Shower Transfer(FIM): 6 Additional Goals: 1-Demonstrate ADL Tasks, 2-Verbalize Understanding, 3- ImproveStrength/Bianca 1=Demonstrate adherence to instructed precautions during ADL tasks. 2=Patient will verbalize/demonstrate understanding of assistive devices/ modifications for ADL. 3=Patient will improve strength/tolerance for activity to enable patient to perform ADL's. OT Education/Plan Problem List/Assessment Assessment: Decreased Activ Tolerance Discharge Recommendations Plan/Recommendations: Continue POC Therapy D/C Recommendations: Home Independently Barriers to Progress Pt. seems somewhat self limiting. States that he is worried about going home. Treatment Plan/Plan of Care Treatment,Training & Education: Yes Patient would benefit from OT for education, treatment and training to promote independence in ADL's, mobility, safety and/or upper extremity function for ADL' s. Plan of Care: ADL Retraining, Functional Mobility Treatment Duration: Sep 21, 2017 Frequency: 5 times per week Estimated Hrs Per Day: .25 hour per day Agreement: Yes Rehab Potential: Good Time/GCodes Start Time: 15:35 Stop Time: 16:00 Total Time Billed (hr/min): 25 Billed Treatment Time Co-treat with PT. Please see note for designated roles. 15 15) 1, FLACA Selfcur-CK Selfgoal-DALIA POSEY OT Sep 14, 2017 16:21
[2017-09-14] MEDS: ATORVASTATIN 20 MG (LIPITOR) TABLET PO SCH ×2 (16:38→21:11)
[2017-09-15] VITALS (7 sets, daily range): BP systolic 97–154; BP diastolic 59–88
[2017-09-15] MEDS: ASPIRIN E.C. 81 MG (ECOTRIN) TAB PO SCH (09:00)
--- NOTE | 2017-09-15 09:30 | Cardiology Progress Note ---
Cardiology SOAP Progress Note Subjective: According to the nurse, the patient complained of dizziness overnight. Objective: I&O/Vital Signs 09/14/17 09/15/17 09/15/17 09/15/17 22:01 00:21 01:00 04:32 Temp 99.5 97.8 Pulse 86 82 83 Resp 20 18 B/P (MAP) 126/71 (89) 143/72 (95) Pulse Ox 94 100 99 O2 Delivery Room Air Room Air Room Air 09/15/17 09/15/17 09/15/17 04:33 07:00 08:54 Temp 96.4 Pulse 83 77 78 82 83 Resp 20 B/P (MAP) 143/72 (95) 98/71 (80) 97/70 (79) 104/59 (74) Pulse Ox 92 O2 Delivery Room Air 09/15/17 00:00 Intake Total 1920 ml Balance 1920 ml Weight (Pounds): 197 Weight (Ounces): 12.0 Weight (Calculated Kilograms): 89.795561 Constitutional: appears stated age, AAO x 3; No apparent distress; well- developed, well-nourished Respiratory: No accessory muscle use, No respiratory distress, No chest tender , No chest expansion is symmetric; chest is bilaterally symmetric; No lungs clear to percussion; lungs clear to auscultation; No crackles, No rhonchi, No rales, No stridor, No wheezing, No pleural rub, No other Cardiovascular: regular rate-rhythm; No irregularly irregular, No extra beats, No parasternal heave is noted, No JVD, No edema, No bradycardia, No tachycardia , No point of maximal impulse, No cardiac thrills are palpable; S1 and S2; No gallop/S3, No gallop/S4, No diastolic murmur, No systolic murmur, No friction rub, No click, No other Gastrointestional: No tender, No soft, No round, No distended, No pulsatile mass, No organomegaly, No guarding, No rebound, No tenderness, No hernia, No mass, No audible bowel sounds, No abnormal bowel sounds, No abdominal bruits, No spleenomegaly, No other Extremities: No normal range of motion, No non-tender, No normal inspection, No pedal edema, No calf tenderness, No normal capillary refill, No pelvis stable , No calf tenderness, No inflammation, No pedal edema, No slow capillary refill , No swelling, No other, No abrasion, No clubbing, No cyanosis, No ecchymosis, No laceration, No no lower extremity edema bilateral, No significant edema, No tenderness, No wound Neurologic/Psychiatric: no motor/sensory deficits, alert, normal mood/affect, oriented x 3, power is 5/5 both on sides Skin: No normal color, No warm/dry, No cyanosis, No cool, No diaphoresis, No damp, No ecchymosis, No jaundice, No mottled, No pallor, No rash, No tattoos/ piercings, No ulcerations, No rash on exposed areas, No ulcerations on exposed areas, No other A/P: Assessment/Dx: CAD, CABG, Chest pain, PPM DVT/PE Hyperlipidemia, Hypertension/Previous postural hypotension, Microcytic anemia, Ischemic Dilated Cardiomyopathy/Mild Acute on chronic CHF, Incisional hernia. Plan: CAD, CABG, Chest pain, ACS ruled out. Continue aspirin and Lipitor. Plavix after incisional hernia surgery. PPM: Getting device interrogation with [employer] today. DVT/PE: Eliquis was previously discontinued because of urinary bleeding. Hyperlipidemia, restart Lipitor. 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 For now no beta blockers or GABRIEL inhibitor. Might require Florinef or midodrine. Microcytic anemia, likely secondary to urinary bleeding. Will defer to the primary team. Ischemic Dilated Cardiomyopathy/Mild Acute on chronic CHF: Could not tolerate BB and GABRIEL inhibitors due hypotension. EF still 30-35%. Will recommend Life vest for dilated cardiomyopathy. ICD upgrade to his PPM in the near future. Incisional hernia. Patient will be considered at moderate risk for major adverse perioperative cardiac events undergoing an intermediate risk noncardiac surgery. I don't see any cardiac contraindication to the above-mentioned procedure. Chronic kidney disease: Referral to nephrology is recommended. Strongly recommend following the patient in office in one week. Thank you for your consultation. Please call me if you have any questions. Jordyn Santos MD, FACP, FACC, FSCAI, FHRS, CCDS Interventional Cardiology Cardiac Electrophysiology Vascular Medicine and Endovascular Interventions Gabrielle SANTOS MD Sep 15, 2017 09:30
--- NOTE | 2017-09-15 10:30 | Physical Therapy Daily Note ---
PT Daily Note-Current Subjective Patient has no c/o of dizziness. Pain Numeric Pain Scale: 0-No Pain Location: No Pain Reported Mental Status Patient Orientation: Normal For Age Transfers Functional [place] Measure 0=Not Assessed/NA 4=Minimal Assistance 1=Total Assistance 5=Supervision or Setup 2=Maximal Assistance 6=Modified [place] 3=Moderate Assistance 7=Complete IndependenceIRFPAI Quality Coding Scale 6 Independent with activity with or without an assistive device 5 Patient requires set up or clean up by helper. Patient completes activity by themselves 4 Supervision or touching assist (CGA). [place] provide cues , steadying assist 3 The helper provides less than half the effort to complete the activity 2 The helper provides more than half the effort to complete the activity 1 Dependent. The helper does all the effort to complete an activity 7 Patient refused to complete or attempt activity 9 The patient did not perform the activity before the current illness or injury 88 Not attempted due to Medical conditions or safety concerns Transfers (B, C, W/C) (FIM): 7 Scootin Rollin Supine to/from Sit: 7 Sit to/from Stand: 7 Bed to/from Chair: 7 Weight Bearing Right Lower Extremity: Right Weight Bearing/Tolerated Left Lower Extremity: Left Weight Bearing/Tolerated Gait Training Gait (FIM): 6 Distance (FIM): 3=150 ft Distance: 500' Gait Level of Assist: 6 Gait Assistive Device: FWW Patient requested use of FWW "just in case". Patient is independent in room mobility Assessment Patient is currently at [facility] with gross motor skills with no c/o dizziness. PT to dismiss patient from services at this time. 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 Time Frame: Sep 16, 2017 Transfers (B,C,W/C) (FIM): 6 Gait (FIM): 6 Gait distance (FIM): 3=150 ft Gait Assistive Device: FWW PT Plan Treatment/Plan Treatment Plan: Discontinue PT, goals met Treatment Plan: Education, Functional Activity Bianca, Functional Strength, Gait , Safety, Transfers Treatment Duration: Sep 16, 2017 Frequency: 5 times per week Estimated Hrs Per Day: .25 hour per day Patient and/or Family Agrees t: Yes Time/GCodes Time In: 935 Time Out: 950 Total Billed Treatment Time: 15 Total Billed Treatment 1 visit FA 15 min G Codes Necessary: Yes PT/OT Therapy GCodes Therapy Functional Limitation: Physical Therapy Test(s)/Tool used to determine: Level of Assistance Scale Functional Limitation-Current Charge Code: MOBCUR Modifier: CJ Functional Limitation-Goal Charge Code: MOBGOUZMA Modifier: [place] Functional Limitation-D/C Charge Codes: MOBDC Modifier: CI TAMMI BARBOSA PT Sep 15, 2017 10:30
--- NOTE | 2017-09-15 14:37 | Occupational Ther Daily Note ---
OT Current Status-Daily Note Subjective Pt alert, lying in bed. Pt agrees to therapy. No c/o pain. Mental Status/Objective Patient Orientation: Person, Place, Time, Situation Functional [place] Measure 0=Not Assessed/NA 4=Minimal Assistance 1=Total Assistance 5=Supervision or Setup 2=Maximal Assistance 6=Modified [place] 3=Moderate Assistance 7=Complete [place] ADL-Treatment Per nrsg and pt report, pt completed own bathing and dressing mod I. Nrsg reported that towels and washcloth were placed in bathroom and pt was told if help was needed to use the call light. Pt stated that he had no difficulty with completing bathing and dressing by self. Had one slight dizzy spell during shower and sat on shower bench until it resolved. No further dizzy spells throughout rest of ADLs. PT has pt up ad guerrero in room, no equipment. Pt has met goals. D/C pt from OT. Pt left in room lying in bed with call light /phone in reach. All needs met in room. Grooming (FIM): 7 Bathing (FIM): 6 Bathing Location: L Arm, R Arm, L Upper Leg, R Upper Leg, L Lower Leg ( including foot), R Lower Leg (including foot), Chest, Abdomen, Buttocks, Perineal Area Upper Body (FIM): 7 Lower Body Dressing (FIM): 7 Toileting (FIM): 7 Transfers (B, C, W/C) (FIM): 7 Toilet/Commode Transfer (FIM): 6 Shower Transfer(FIM): 6 OT Short Term Goals Short Term Goals 1=Demonstrate adherence to instructed precautions during ADL tasks. 2=Patient will verbalize/demonstrate understanding of assistive devices/ modifications for ADL. 3=Patient will improve strength/tolerance for activity to enable patient to perform ADL's. OT Mechanical Striper Goals Senior Living Goals Time Frame: Sep 21, 2017 Eating (FIM): 7 Grooming(FIM): 6 Bathing(FIM): 6 Upper Body Dressing(FIM): 6 Lower Body Dressing(FIM): 6 Toileting(FIM): 6 Transfers (B,C,W/C) (FIM): 6 Toilet/Commode Transfer(FIM): 6 Shower Transfer(FIM): 6 Additional Goals: 1-Demonstrate ADL Tasks, 2-Verbalize Understanding, 3- ImproveStrength/Bianca 1=Demonstrate adherence to instructed precautions during ADL tasks. 2=Patient will verbalize/demonstrate understanding of assistive devices/ modifications for ADL. 3=Patient will improve strength/tolerance for activity to enable patient to perform ADL's. OT Education/Plan Discharge Recommendations Plan/Recommendations: Discharge/Goals Met Treatment Plan/Plan of Care Patient would benefit from OT for education, treatment and training to promote independence in ADL's, mobility, safety and/or upper extremity function for ADL' s. Plan of Care: ADL Retraining, Functional Mobility Treatment Duration: Sep 21, 2017 Frequency: 5 times per week Estimated Hrs Per Day: .25 hour per day Agreement: Yes Rehab Potential: Good Time/GCodes Start Time: 14:25 Stop Time: 14:35 Total Time Billed (hr/min): 10 Billed Treatment Time 1 visit-FA 1 (10 min) PT/OT Therapy GCodes Therapy Functional Limitation: Physical Therapy Test(s)/Tool used to determine: Level of Assistance Scale Functional Limitation-Current Charge Code: MOBCUR Modifier: CJ Functional Limitation-Goal Charge Code: MOBALYSSA Modifier: JAKY HOLDER Sep 15, 2017 14:37
[2017-09-15] MEDS ORDERED: IRON SUCROSE 200 MG/10 ML (VENOFER) VIAL IV ONE (15:15)
--- NOTE | 2017-09-15 17:00 | Progress Note (SOAP) ---
Subjective Subjective/Events-last exam States that he is still having dizziness. States that it can happen any time. When he is sitting or standing. Orthostatics were positive yesterday. Tolerating PT and PO diet. Review of Systems Date Seen by Provider: Sep 15, 2017 Time Seen by Provider: 10:45 Pulmonary: No Dyspnea, No Cough Cardiovascular: Lt Headedness; No: Chest Pain, Palpitations Gastrointestinal: No: Nausea, Vomiting, Abdominal Pain, Diarrhea, Constipation Neurological: Other (dizziness) Objective Exam Last Set of Vital Signs Vital Signs Date Time Temp Pulse Resp B/P (MAP) Pulse Ox O2 Delivery O2 Flow Rate FiO2 09/15/17 12:30 98.5 81 22 154/85 (108) 100 Room Air Capillary Refill : Less Than 3 Seconds I&O Intake and Output 09/15/17 00:00 Intake Total 2120 ml Balance 2120 ml Intake Oral 2120 ml # Voids 8 General: Alert, Oriented X3, Cooperative, No Acute Distress HEENT: Mucous Memb Moist/[place] Lungs: Clear to Auscultation, Normal Air Movement Heart: Regular Rate, No Murmurs Abdomen: Normal Bowel Sounds, Soft, No Tenderness, No Hepatosplenomegaly, No Masses Extremities: No Edema, No Tenderness/Swelling Neuro: Strength at 5/5 X4 Ext, Cranial Nerves 3-12 NL Psych/Mental Status: Mental Status NL, Mood NL Results/Procedures Radiology Date of Exam: 09/13/17 CHEST 1 VIEW, AP/PA ONLY INDICATION: Chest pain. TIME OF EXAM: 05:35 p.m. Correlation is made with prior study from 07/26/2017. FINDINGS: Cardiac pacemaker remains in place. The lungs are clear. No infiltrate or failure is detected. No effusion or pneumothorax is seen. IMPRESSION: No acute cardiopulmonary process is detected. Assessment/Plan Assessment/Plan Admission Status: Observation (1) Chest pain Status: Acute Assessment & Plan: - High risk patient s/p CABG last month, CE neg, pain likely 2/2 to incisional hernia - Echo today - Cardiology consulted 09/15: Still having some dizziness, waiting for ICD interrogation and life vest, + orthostatics Qualifiers: Qualified Codes: R07.9 - Chest pain, unspecified (2) Incisional hernia Status: Acute Assessment & Plan: - Dr Meng consulted - Cardiac clearance needed for surgery 09/15: Scheduled for Tuesday Qualifiers: Qualified Codes: K43.2 - Incisional hernia without obstruction or gangrene (3) Microcytic anemia Status: Acute Assessment & Plan: - Iron studies pending 09/15: Iron def anemia, iron replaced, Patient will need outpatient colonoscopy (4) CAD (coronary artery disease) of bypass graft Status: Chronic Assessment & Plan: - Patient not currently on antiplatelet therapy due to hematuria and not on ACEI or BB due to hypotension, Cardiology managing Qualifiers: Qualified Codes: I25.810 - Atherosclerosis of coronary artery bypass graft(s ) without angina pectoris (5) Renal insufficiency Status: Acute Assessment & Plan: - Conservative IVF hydration 09/15: Needs outpatient referral to nephrology (6) Systolic CHF Status: Chronic Assessment & Plan: 09/15: Life vest rep to come talk to patient today Qualifiers: Qualified Codes: I50.22 - Chronic systolic (congestive) heart failure (7) Chronic pulmonary embolism Status: Chronic Assessment & Plan: - Patient not on blood thinner due to hematuria, no hypoxia currently Qualifiers: Qualified Codes: I27.82 - Chronic pulmonary embolism (8) Discharge planning issues Status: Acute Assessment & Plan: 09/15: Patient [facility], consult placed Clinical Quality Measures DVT/VTE Risk/Contraindication: Risk Factor Score Per Nursin RFS Level Per Nursing on Admit: 4+=Very High ROBE LOMBARDI MD Sep 15, 2017 5:00 pm
--- NOTE | 2017-09-15 18:08 | Progress Note ---
Subjective Date Seen by Provider: Sep 15, 2017 Time Seen by Provider: 09:30 Subjective/Events-last exam Having less chest pain. Still having some dizziness. Comes and goes. Incisional hernia feeling better today. Cleared by cardiology for hernia repair. Tolerating diet. He denies n/v fever sweats chills shortness of breath or chest pain at this time. Objective Exam Vital Signs Date Time Temp Pulse Resp B/P (MAP) Pulse Ox O2 Delivery O2 Flow Rate FiO2 09/15/17 15:35 97.7 63 18 120/73 (89) 100 Room Air 09/15/17 12:30 98.5 81 22 154/85 (108) 100 Room Air 09/15/17 08:54 96.4 78 20 98/71 (80) 92 Room Air 09/15/17 07:00 77 09/15/17 04:33 83 143/72 (95) 82 97/70 (79) 83 104/59 (74) 09/15/17 04:32 97.8 83 18 143/72 (95) 99 Room Air 09/15/17 01:00 82 09/15/17 00:21 99.5 86 20 126/71 (89) 100 Room Air 09/14/17 22:01 94 Room Air 09/14/17 19:15 98.0 82 18 130/84 (99) 100 Room Air 09/14/17 19:00 85 09/14/17 19:00 80 116/72 (87) 88 114/71 (85) 82 120/84 (96) I & O 09/15/17 07:00 Intake Total 2370 ml Balance 2370 ml Capillary Refill : Less Than 3 Seconds General Appearance: No Apparent Distress, WD/WN HEENT: PERRL/EOMI, Pharynx Normal Neck: Non Tender, Supple Respiratory: Lungs Clear, Normal Breath Sounds Cardiovascular: Regular Rate, Rhythm, No Murmur Gastrointestinal: normal bowel sounds, soft, tenderness (epigastric tenderness at incsisional hernia site) Extremity: Normal Range of Motion, Non Tender, Pedal Edema (1+ to the mid tibia bilateral) Neurologic/Psychiatric: Alert, Oriented x3 Skin: Normal Color, Warm/Dry Assessment/Plan Assessment/Plan Assessment/Plan Incisional hernia, chest pain, dizziness Patient cleared by cardiology for surgery. He is scheduled for Tuesday. Patient understands risks and benefits of laparoscopic incisional hernia repair possible open. From surgical standpoint could go home and come back for outpatient surgery if medical issues resolved. Clinical Quality Measures DVT/VTE Risk/Contraindication: Risk Factor Score Per Nursin RFS Level Per Nursing on Admit: 4+=Very High PATSY MCADAMS DO Sep 15, 2017 18:08
[2017-09-15] MEDS: ATORVASTATIN 20 MG (LIPITOR) TABLET PO SCH (20:14)
[2017-09-16] VITALS (7 sets, daily range): BP systolic 82–106; BP diastolic 47–70
[2017-09-16 06:41] LABS: BASOPHILS % (AUTO) 1 % (0-10); EOSINOPHILS # (AUTO) 0.2 10^3/uL (0.0-0.3); EOSINOPHILS % (AUTO) 4 % (0-10); HEMATOCRIT 36 % (40-54); HEMOGLOBIN 11.6 G/DL (13.3-17.7); LYMPHOCYTES # (AUTO) 1.2 X 10^3 (1.0-4.0); LYMPHOCYTES % (AUTO) 32 % (12-44); MEAN CORPUSCULAR HEMOGLOBIN 24 PG (25-34); MEAN CORPUSCULAR HGB CONC 32 G/DL (32-36); MEAN CORPUSCULAR VOLUME 74 FL (80-99); MEAN PLATELET VOLUME 10.8 FL (7.4-10.4); MONOCYTES # (AUTO) 0.5 X 10^3 (0.0-1.0); MONOCYTES % (AUTO) 12 % (0-12); NEUTROPHILS % (AUTO) 51 % (42-75); PLATELET COUNT 208 10^3/uL (130-400); RED BLOOD COUNT 4.89 10^6/uL (4.35-5.85); RED CELL DISTRIBUTION WIDTH 21.3 % (10.0-14.5); WHITE BLOOD COUNT 3.9 10^3/uL (4.3-11.0)
[2017-09-16 07:00] LABS: BUN/CREATININE RATIO 20; CALCIUM 10.1 MG/DL (8.5-10.1); CARBON DIOXIDE 26 MMOL/L (21-32); CHLORIDE 102 MMOL/L (98-107); CREATININE SERUM 1.11 MG/DL (0.60-1.30); GFR ESTIMATED > 60; GLUCOSE 81 MG/DL (70-105); POTASSIUM 4.3 MMOL/L (3.6-5.0); SODIUM 136 MMOL/L (135-145)
[2017-09-16] MEDS: ASPIRIN E.C. 81 MG (ECOTRIN) TAB PO SCH (07:58)
--- NOTE | 2017-09-16 10:25 | Cardiology Progress Note ---
Cardiology SOAP Progress Note Subjective: No cardiac complaints Objective: I&O/Vital Signs 09/16/17 09/16/17 09/16/17 09/16/17 08:00 09:05 09:05 12:00 Temp 98.8 97.9 Pulse 69 64 64 Resp 18 18 B/P (MAP) 98/52 (67) 104/70 (81) Pulse Ox 96 93 93 97 O2 Delivery Room Air Room Air Room Air 09/16/17 16:35 Temp 97.5 Pulse 63 Resp 18 B/P (MAP) 82/58 (66) Pulse Ox 99 O2 Delivery Room Air 09/16/17 00:00 Intake Total 1750 ml Balance 1750 ml Weight (Pounds): 197 Weight (Ounces): 1.0 Weight (Calculated Kilograms): 89.815450 Constitutional: appears stated age, AAO x 3; No apparent distress; well- developed, well-nourished Respiratory: No accessory muscle use, No respiratory distress, No chest tender , No chest expansion is symmetric; chest is bilaterally symmetric; No lungs clear to percussion; lungs clear to auscultation; No crackles, No rhonchi, No rales, No stridor, No wheezing, No pleural rub, No other Cardiovascular: regular rate-rhythm; No irregularly irregular, No extra beats, No parasternal heave is noted, No JVD, No edema, No bradycardia, No tachycardia , No point of maximal impulse, No cardiac thrills are palpable; S1 and S2; No gallop/S3, No gallop/S4, No diastolic murmur, No systolic murmur, No friction rub, No click, No other Gastrointestional: No tender, No soft, No round, No distended, No pulsatile mass, No organomegaly, No guarding, No rebound, No tenderness, No hernia, No mass, No audible bowel sounds, No abnormal bowel sounds, No abdominal bruits, No spleenomegaly, No other Extremities: No normal range of motion, No non-tender, No normal inspection, No pedal edema, No calf tenderness, No normal capillary refill, No pelvis stable , No calf tenderness, No inflammation, No pedal edema, No slow capillary refill , No swelling, No other, No abrasion, No clubbing, No cyanosis, No ecchymosis, No laceration, No no lower extremity edema bilateral, No significant edema, No tenderness, No wound Neurologic/Psychiatric: no motor/sensory deficits, alert, normal mood/affect, oriented x 3, power is 5/5 both on sides Skin: No normal color, No warm/dry, No cyanosis, No cool, No diaphoresis, No damp, No ecchymosis, No jaundice, No mottled, No pallor, No rash, No tattoos/ piercings, No ulcerations, No rash on exposed areas, No ulcerations on exposed areas, No other Results/Procedures: Labs Laboratory Tests 09/16/17 06:01: White Blood Count 3.9L, Red Blood Count 4.89, Hemoglobin 11.6L, Hematocrit 36L, Mean Corpuscular Volume 74L, Mean Corpuscular Hemoglobin 24L, Mean Corpuscular Hemoglobin Concent 32, Red Cell Distribution Width 21.3H, Platelet Count 208, Mean Platelet Volume 10.8H, Neutrophils (%) (Auto) 51, Lymphocytes (%) (Auto) 32 , Monocytes (%) (Auto) 12, Eosinophils (%) (Auto) 4, Basophils (%) (Auto) 1, Neutrophils # (Auto) 2.0, Lymphocytes # (Auto) 1.2, Monocytes # (Auto) 0.5, Eosinophils # (Auto) 0.2, Basophils # (Auto) 0.0, Sodium Level 136, Potassium Level 4.3, Chloride Level 102, Carbon Dioxide Level 26, Anion Gap 8, Blood Urea Nitrogen 22H, Creatinine 1.11, Estimat Glomerular Filtration Rate > 60, BUN/ Creatinine Ratio 20, Glucose Level 81, Calcium Level 10.1 09/16/17 08:53: Stool Occult Blood Immunoassay NEGATIVE A/P: Assessment/Dx: CAD, CABG, Chest pain, PPM DVT/PE Hyperlipidemia, Hypertension/Previous postural hypotension, Microcytic anemia, Ischemic Dilated Cardiomyopathy/Mild Acute on chronic CHF, Incisional hernia. Plan: CAD, CABG, Chest pain, ACS ruled out. Continue aspirin and Lipitor. Plavix after incisional hernia surgery. PPM: Device interrogation showed normal sensing and pacing thresholds. DVT/PE: Eliquis was previously discontinued because of urinary bleeding. Hyperlipidemia, restart Lipitor. 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 For now no beta blockers or GABRIEL inhibitor. Might require Florinef or midodrine. Microcytic anemia, likely secondary to urinary bleeding. Will defer to the primary team. Ischemic Dilated Cardiomyopathy/Mild Acute on chronic CHF: Could not tolerate BB and GABRIEL inhibitors due hypotension. EF still 30-35%. LifeVest. Cammy upgrade to ICD in the near future. Incisional hernia. Patient will be considered at moderate risk for major adverse perioperative cardiac events undergoing an intermediate risk noncardiac surgery. I don't see any cardiac contraindication to the above-mentioned procedure. Chronic kidney disease: Referral to nephrology is recommended. Strongly recommend following the patient in office in one week. Thank you for your consultation. Please call me if you have any questions. Jordyn Santos MD, FACP, FACC, FSCAI, FHRS, CCDS Interventional Cardiology Cardiac Electrophysiology Vascular Medicine and Endovascular Interventions Gabrielle SANTOS MD Sep 16, 2017 10:24
--- NOTE | 2017-09-16 15:28 | Progress Note (SOAP) ---
Subjective Subjective/Events-last exam States that he has not had any dizziness since yesterday. Tolerating ambulation and PO diet. Pain in hernia is well controlled. Review of Systems Date Seen by Provider: Sep 16, 2017 Time Seen by Provider: 08:10 Pulmonary: No Dyspnea; Cough Cardiovascular: No: Chest Pain, Palpitations, Edema Gastrointestinal: Abdominal Pain (hernia site) Genitourinary: No Dysuria, No Frequency, No Hematuria Objective Exam Last Set of Vital Signs Vital Signs Date Time Temp Pulse Resp B/P (MAP) Pulse Ox O2 Delivery O2 Flow Rate FiO2 09/16/17 12:00 97.9 64 18 104/70 (81) 97 Room Air Capillary Refill : Less Than 3 Seconds I&O Intake and Output 09/16/17 00:00 Intake Total 2200 ml Balance 2200 ml Intake Oral 2200 ml # Voids 11 # Bowel Movements 1 General: Alert, Oriented X3, Cooperative, No Acute Distress Lungs: Clear to Auscultation, Normal Air Movement Heart: Regular Rate, No Murmurs Extremities: No Edema, No Tenderness/Swelling Results/Procedures Lab Laboratory Tests 09/16/17 06:01: White Blood Count 3.9L, Red Blood Count 4.89, Hemoglobin 11.6L, Hematocrit 36L, Mean Corpuscular Volume 74L, Mean Corpuscular Hemoglobin 24L, Mean Corpuscular Hemoglobin Concent 32, Red Cell Distribution Width 21.3H, Platelet Count 208, Mean Platelet Volume 10.8H, Neutrophils (%) (Auto) 51, Lymphocytes (%) (Auto) 32 , Monocytes (%) (Auto) 12, Eosinophils (%) (Auto) 4, Basophils (%) (Auto) 1, Neutrophils # (Auto) 2.0, Lymphocytes # (Auto) 1.2, Monocytes # (Auto) 0.5, Eosinophils # (Auto) 0.2, Basophils # (Auto) 0.0, Sodium Level 136, Potassium Level 4.3, Chloride Level 102, Carbon Dioxide Level 26, Anion Gap 8, Blood Urea Nitrogen 22H, Creatinine 1.11, Estimat Glomerular Filtration Rate > 60, BUN/ Creatinine Ratio 20, Glucose Level 81, Calcium Level 10.1 09/16/17 08:53: Stool Occult Blood Immunoassay NEGATIVE Radiology Date of Exam: 09/13/17 CHEST 1 VIEW, AP/PA ONLY INDICATION: Chest pain. TIME OF EXAM: 05:35 p.m. Correlation is made with prior study from 07/26/2017. FINDINGS: Cardiac pacemaker remains in place. The lungs are clear. No infiltrate or failure is detected. No effusion or pneumothorax is seen. IMPRESSION: No acute cardiopulmonary process is detected. Assessment/Plan Assessment/Plan (1) Chest pain Status: Acute Assessment & Plan: - High risk patient s/p CABG last month, CE neg, pain likely 2/2 to incisional hernia - Echo today - Cardiology consulted 09/15: Still having some dizziness, waiting for ICD interrogation and life vest, + orthostatics 09/16: Pain has resolved, waiting for life vest Qualifiers: Qualified Codes: R07.9 - Chest pain, unspecified (2) Incisional hernia Status: Acute Assessment & Plan: - Dr Meng consulted - Cardiac clearance needed for surgery 09/15: Scheduled for Tuesday Qualifiers: Qualified Codes: K43.2 - Incisional hernia without obstruction or gangrene (3) Microcytic anemia Status: Acute Assessment & Plan: - Iron studies pending 09/15: Iron def anemia, iron replaced, Patient will need outpatient colonoscopy 09/16: Patient states that he had colonoscopy in June that was normal, stool occult neg, continue IV iron replacement (4) CAD (coronary artery disease) of bypass graft Status: Chronic Assessment & Plan: - Patient not currently on antiplatelet therapy due to hematuria and not on ACEI or BB due to hypotension, Cardiology managing Qualifiers: Qualified Codes: I25.810 - Atherosclerosis of coronary artery bypass graft(s ) without angina pectoris (5) Renal insufficiency Status: Acute Assessment & Plan: - Conservative IVF hydration 09/15: Needs outpatient referral to nephrology (6) Systolic CHF Status: Chronic Assessment & Plan: 09/15: Life vest rep to come talk to patient today Qualifiers: Qualified Codes: I50.22 - Chronic systolic (congestive) heart failure (7) Chronic pulmonary embolism Status: Chronic Assessment & Plan: - Patient not on blood thinner due to hematuria, no hypoxia currently Qualifiers: Qualified Codes: I27.82 - Chronic pulmonary embolism (8) Discharge planning issues Status: Acute Assessment & Plan: 09/15: Patient [facility], SW consult placed Clinical Quality Measures DVT/VTE Risk/Contraindication: Risk Factor Score Per Nursin RFS Level Per Nursing on Admit: 4+=Very High ROBE LOMBARDI MD Sep 16, 2017 15:28
[2017-09-16] MEDS ORDERED: ONDANSETRON 4 MG/2 ML (SDV) Z0FRAN IVP PRN (17:00)
[2017-09-16] MEDS: ATORVASTATIN 20 MG (LIPITOR) TABLET PO SCH (19:59)
--- NOTE | 2017-09-16 22:17 | Progress Note ---
Subjective Date Seen by Provider: Sep 16, 2017 Time Seen by Provider: 17:10 Subjective/Events-last exam patient with life vest. patient feeling better, not having as much pain with hernia. still episodes of dizziness. blood pressure lower. denies n/v fever sweats chills shortness of breath or chest pain. Objective Exam Vital Signs Date Time Temp Pulse Resp B/P (MAP) Pulse Ox O2 Delivery O2 Flow Rate FiO2 09/16/17 19:40 97.9 87 18 95/59 (71) 99 Room Air 09/16/17 16:35 97.5 63 18 82/58 (66) 99 Room Air 09/16/17 12:00 97.9 64 18 104/70 (81) 97 Room Air 09/16/17 09:05 64 93 09/16/17 09:05 93 Room Air 09/16/17 08:00 98.8 69 18 98/52 (67) 96 Room Air 09/16/17 03:36 96.6 85 15 90/47 (61) Nasal Cannula 09/16/17 00:00 96.7 77 16 106/62 (77) 93 Room Air I & O 09/16/17 07:00 Intake Total 1970 ml Balance 1970 ml Capillary Refill : Less Than 3 Seconds General Appearance: No Apparent Distress, WD/WN HEENT: PERRL/EOMI Neck: Non Tender, Supple Respiratory: Lungs Clear, Normal Breath Sounds Cardiovascular: Regular Rate, Rhythm Gastrointestinal: normal bowel sounds, soft, tenderness (improved) Extremity: Normal Range of Motion, Non Tender, Pedal Edema (1+ to the mid tibia bilateral) Neurologic/Psychiatric: Alert, Oriented x3 Skin: Normal Color, Warm/Dry Results Lab Laboratory Tests 09/16/17 06:01: White Blood Count 3.9L, Red Blood Count 4.89, Hemoglobin 11.6L, Hematocrit 36L, Mean Corpuscular Volume 74L, Mean Corpuscular Hemoglobin 24L, Mean Corpuscular Hemoglobin Concent 32, Red Cell Distribution Width 21.3H, Platelet Count 208, Mean Platelet Volume 10.8H, Neutrophils (%) (Auto) 51, Lymphocytes (%) (Auto) 32 , Monocytes (%) (Auto) 12, Eosinophils (%) (Auto) 4, Basophils (%) (Auto) 1, Neutrophils # (Auto) 2.0, Lymphocytes # (Auto) 1.2, Monocytes # (Auto) 0.5, Eosinophils # (Auto) 0.2, Basophils # (Auto) 0.0, Sodium Level 136, Potassium Level 4.3, Chloride Level 102, Carbon Dioxide Level 26, Anion Gap 8, Blood Urea Nitrogen 22H, Creatinine 1.11, Estimat Glomerular Filtration Rate > 60, BUN/ Creatinine Ratio 20, Glucose Level 81, Calcium Level 10.1 09/16/17 08:53: Stool Occult Blood Immunoassay NEGATIVE Assessment/Plan Assessment/Plan Assessment/Plan Incisional hernia, chest pain, dizziness life vest today, hypotension monitor Patient cleared by cardiology for surgery. He is scheduled for Tuesday. Patient understands risks and benefits of laparoscopic incisional hernia repair possible open. From surgical standpoint could go home and come back for outpatient surgery if medical issues resolved. Clinical Quality Measures DVT/VTE Risk/Contraindication: Risk Factor Score Per Nursin RFS Level Per Nursing on Admit: 4+=Very High PATSY MCADAMS DO Sep 16, 2017 22:17
[2017-09-17] VITALS (7 sets, daily range): BP systolic 100–126; BP diastolic 56–72
[2017-09-17 06:00] LABS: BASOPHILS % (AUTO) 1 % (0-10); EOSINOPHILS # (AUTO) 0.3 10^3/uL (0.0-0.3); EOSINOPHILS % (AUTO) 5 % (0-10); HEMATOCRIT 33 % (40-54); HEMOGLOBIN 10.7 G/DL (13.3-17.7); LYMPHOCYTES # (AUTO) 1.7 X 10^3 (1.0-4.0); LYMPHOCYTES % (AUTO) 30 % (12-44); MEAN CORPUSCULAR HEMOGLOBIN 24 PG (25-34); MEAN CORPUSCULAR HGB CONC 32 G/DL (32-36); MEAN CORPUSCULAR VOLUME 74 FL (80-99); MONOCYTES # (AUTO) 0.8 X 10^3 (0.0-1.0); MONOCYTES % (AUTO) 15 % (0-12); NEUTROPHILS # (AUTO) 2.8 X 10^3 (1.8-7.8); NEUTROPHILS % (AUTO) 51 % (42-75); PLATELET COUNT 196 10^3/uL (130-400); RED CELL DISTRIBUTION WIDTH 21.1 % (10.0-14.5); WHITE BLOOD COUNT 5.6 10^3/uL (4.3-11.0)
[2017-09-17 06:25] LABS: BUN/CREATININE RATIO 23; CALCIUM 9.6 MG/DL (8.5-10.1); CARBON DIOXIDE 25 MMOL/L (21-32); CHLORIDE 104 MMOL/L (98-107); CREATININE SERUM 1.12 MG/DL (0.60-1.30); GFR ESTIMATED > 60; GLUCOSE 84 MG/DL (70-105); POTASSIUM 4.6 MMOL/L (3.6-5.0); SODIUM 136 MMOL/L (135-145)
[2017-09-17] MEDS: ASPIRIN E.C. 81 MG (ECOTRIN) TAB PO SCH (08:20)
--- NOTE | 2017-09-17 09:48 | Progress Note ---
Subjective Date Seen by Provider: Sep 17, 2017 Time Seen by Provider: 09:46 Subjective/Events-last exam doing well. no complaints at this time. no significant pain from hernia. denies n/v fever sweats chills shortness of breath or chest pain. Objective Exam Vital Signs Date Time Temp Pulse Resp B/P (MAP) Pulse Ox O2 Delivery O2 Flow Rate FiO2 09/17/17 08:08 97.1 73 20 108/70 (83) 96 Room Air 09/17/17 04:33 98.0 62 20 102/62 (75) 96 Room Air 09/17/17 00:00 99.3 76 20 109/64 (79) 100 Room Air 09/16/17 19:40 97.9 87 18 95/59 (71) 99 Room Air 09/16/17 16:35 97.5 63 18 82/58 (66) 99 Room Air 09/16/17 12:00 97.9 64 18 104/70 (81) 97 Room Air I & O 09/17/17 07:00 Intake Total 1745 ml Balance 1745 ml Capillary Refill : Less Than 3 Seconds General Appearance: No Apparent Distress, WD/WN HEENT: PERRL/EOMI Neck: Non Tender, Supple Respiratory: Lungs Clear, Normal Breath Sounds Cardiovascular: Regular Rate, Rhythm Gastrointestinal: normal bowel sounds, soft, tenderness (improved) Extremity: Normal Range of Motion, Non Tender, Pedal Edema (1+ to the mid tibia bilateral) Neurologic/Psychiatric: Alert, Oriented x3 Skin: Normal Color, Warm/Dry Results Lab Laboratory Tests 09/17/17 05:15: White Blood Count 5.6, Red Blood Count 4.50, Hemoglobin 10.7L, Hematocrit 33L, Mean Corpuscular Volume 74L, Mean Corpuscular Hemoglobin 24L, Mean Corpuscular Hemoglobin Concent 32, Red Cell Distribution Width 21.1H, Platelet Count 196, Mean Platelet Volume 11.0H, Neutrophils (%) (Auto) 51, Lymphocytes (%) (Auto) 30 , Monocytes (%) (Auto) 15H, Eosinophils (%) (Auto) 5, Basophils (%) (Auto) 1, Neutrophils # (Auto) 2.8, Lymphocytes # (Auto) 1.7, Monocytes # (Auto) 0.8, Eosinophils # (Auto) 0.3, Basophils # (Auto) 0.0, Sodium Level 136, Potassium Level 4.6, Chloride Level 104, Carbon Dioxide Level 25, Anion Gap 7, Blood Urea Nitrogen 26H, Creatinine 1.12, Estimat Glomerular Filtration Rate > 60, BUN/ Creatinine Ratio 23, Glucose Level 84, Calcium Level 9.6 Assessment/Plan Assessment/Plan Assessment/Plan Incisional hernia, chest pain, dizziness life vest, hypotension monitor Patient cleared by cardiology for surgery. He is scheduled for Tuesday. Patient understands risks and benefits of laparoscopic incisional hernia repair possible open. From surgical standpoint could go home and come back for outpatient surgery if medical issues resolved. Clinical Quality Measures DVT/VTE Risk/Contraindication: Risk Factor Score Per Nursin RFS Level Per Nursing on Admit: 4+=Very High PATSY MCADAMS DO Sep 17, 2017 09:48
--- NOTE | 2017-09-17 11:39 | Progress Note (SOAP) ---
Subjective Subjective/Events-last exam Patient states that he feels much better. Yesterday had episode of hypotension and dizziness that resolved with rest. Review of Systems Date Seen by Provider: Sep 17, 2017 Time Seen by Provider: 09:45 Pulmonary: No Dyspnea, No Cough Cardiovascular: No: Chest Pain, Palpitations Neurological: Other (occassional dizziness) Objective Exam Last Set of Vital Signs Vital Signs Date Time Temp Pulse Resp B/P (MAP) Pulse Ox O2 Delivery O2 Flow Rate FiO2 09/17/17 08:08 97.1 73 20 108/70 (83) 96 Room Air Capillary Refill : Less Than 3 Seconds I&O Intake and Output 09/17/17 00:00 Intake Total 1765 ml Balance 1765 ml Intake Oral 1765 ml # Voids 11 # Bowel Movements 1 General: Alert, Oriented X3, Cooperative, No Acute Distress Lungs: Clear to Auscultation, Normal Air Movement Heart: Regular Rate, No Murmurs Abdomen: Other (hernia tender to palpation, no color change) Extremities: No Edema, No Tenderness/Swelling Results/Procedures Lab Laboratory Tests 09/17/17 05:15: White Blood Count 5.6, Red Blood Count 4.50, Hemoglobin 10.7L, Hematocrit 33L, Mean Corpuscular Volume 74L, Mean Corpuscular Hemoglobin 24L, Mean Corpuscular Hemoglobin Concent 32, Red Cell Distribution Width 21.1H, Platelet Count 196, Mean Platelet Volume 11.0H, Neutrophils (%) (Auto) 51, Lymphocytes (%) (Auto) 30 , Monocytes (%) (Auto) 15H, Eosinophils (%) (Auto) 5, Basophils (%) (Auto) 1, Neutrophils # (Auto) 2.8, Lymphocytes # (Auto) 1.7, Monocytes # (Auto) 0.8, Eosinophils # (Auto) 0.3, Basophils # (Auto) 0.0, Sodium Level 136, Potassium Level 4.6, Chloride Level 104, Carbon Dioxide Level 25, Anion Gap 7, Blood Urea Nitrogen 26H, Creatinine 1.12, Estimat Glomerular Filtration Rate > 60, BUN/ Creatinine Ratio 23, Glucose Level 84, Calcium Level 9.6 Radiology Date of Exam: 09/13/17 CHEST 1 VIEW, AP/PA ONLY INDICATION: Chest pain. TIME OF EXAM: 05:35 p.m. Correlation is made with prior study from 07/26/2017. FINDINGS: Cardiac pacemaker remains in place. The lungs are clear. No infiltrate or failure is detected. No effusion or pneumothorax is seen. IMPRESSION: No acute cardiopulmonary process is detected. Assessment/Plan Assessment/Plan (1) Chest pain Status: Acute Assessment & Plan: - High risk patient s/p CABG last month, CE neg, pain likely 2/2 to incisional hernia - Echo today - Cardiology consulted 09/15: Still having some dizziness, waiting for ICD interrogation and life vest, + orthostatics 09/16: Pain has resolved, waiting for life vest Qualifiers: Qualified Codes: R07.9 - Chest pain, unspecified (2) Incisional hernia Status: Acute Assessment & Plan: - Dr Meng consulted - Cardiac clearance needed for surgery 09/15: Scheduled for Tuesday Qualifiers: Qualified Codes: K43.2 - Incisional hernia without obstruction or gangrene (3) Microcytic anemia Status: Acute Assessment & Plan: - Iron studies pending 09/15: Iron def anemia, iron replaced, Patient will need outpatient colonoscopy 09/16: Patient states that he had colonoscopy in June that was normal, stool occult neg, continue IV iron replacement (4) CAD (coronary artery disease) of bypass graft Status: Chronic Assessment & Plan: - Patient not currently on antiplatelet therapy due to hematuria and not on ACEI or BB due to hypotension, Cardiology managing Qualifiers: Qualified Codes: I25.810 - Atherosclerosis of coronary artery bypass graft(s ) without angina pectoris (5) Renal insufficiency Status: Acute Assessment & Plan: - Conservative IVF hydration 09/15: Needs outpatient referral to nephrology (6) Systolic CHF Status: Chronic Assessment & Plan: 09/15: Life vest rep to come talk to patient today Qualifiers: Qualified Codes: I50.22 - Chronic systolic (congestive) heart failure (7) Chronic pulmonary embolism Status: Chronic Assessment & Plan: - Patient not on blood thinner due to hematuria, no hypoxia currently Qualifiers: Qualified Codes: I27.82 - Chronic pulmonary embolism (8) Discharge planning issues Status: Acute Assessment & Plan: 09/15: Patient interested in going to [facility], consult placed Clinical Quality Measures DVT/VTE Risk/Contraindication: Risk Factor Score Per Nursin RFS Level Per Nursing on Admit: 4+=Very High ROBE LOMBARDI MD Sep 17, 2017 11:39 am
--- NOTE | 2017-09-17 13:26 | Cardiology Progress Note ---
Cardiology SOAP Progress Note Subjective: No cardiac symptoms. Objective: I&O/Vital Signs 09/17/17 09/17/17 09/17/17 04:33 08:08 12:00 Temp 98.0 97.1 97.3 Pulse 62 73 76 Resp 20 20 20 B/P (MAP) 102/62 (75) 108/70 (83) 113/72 (86) Pulse Ox 96 96 99 O2 Delivery Room Air Room Air Room Air 09/17/17 00:00 Intake Total 1545 ml Balance 1545 ml Weight (Pounds): 197 Weight (Ounces): 1.0 Weight (Calculated Kilograms): 89.785500 Constitutional: appears stated age, AAO x 3; No apparent distress; well- developed, well-nourished Respiratory: No accessory muscle use, No respiratory distress, No chest tender , No chest expansion is symmetric; chest is bilaterally symmetric; No lungs clear to percussion; lungs clear to auscultation; No crackles, No rhonchi, No rales, No stridor, No wheezing, No pleural rub, No other Cardiovascular: regular rate-rhythm; No irregularly irregular, No extra beats, No parasternal heave is noted, No JVD, No edema, No bradycardia, No tachycardia , No point of maximal impulse, No cardiac thrills are palpable; S1 and S2; No gallop/S3, No gallop/S4, No diastolic murmur, No systolic murmur, No friction rub, No click, No other Gastrointestional: No tender, No soft, No round, No distended, No pulsatile mass, No organomegaly, No guarding, No rebound, No tenderness, No hernia, No mass, No audible bowel sounds, No abnormal bowel sounds, No abdominal bruits, No spleenomegaly, No other Extremities: No normal range of motion, No non-tender, No normal inspection, No pedal edema, No calf tenderness, No normal capillary refill, No pelvis stable , No calf tenderness, No inflammation, No pedal edema, No slow capillary refill , No swelling, No other, No abrasion, No clubbing, No cyanosis, No ecchymosis, No laceration, No no lower extremity edema bilateral, No significant edema, No tenderness, No wound Neurologic/Psychiatric: no motor/sensory deficits, alert, normal mood/affect, oriented x 3, power is 5/5 both on sides Skin: No normal color, No warm/dry, No cyanosis, No cool, No diaphoresis, No damp, No ecchymosis, No jaundice, No mottled, No pallor, No rash, No tattoos/ piercings, No ulcerations, No rash on exposed areas, No ulcerations on exposed areas, No other Results/Procedures: Labs Laboratory Tests 09/17/17 05:15: White Blood Count 5.6, Red Blood Count 4.50, Hemoglobin 10.7L, Hematocrit 33L, Mean Corpuscular Volume 74L, Mean Corpuscular Hemoglobin 24L, Mean Corpuscular Hemoglobin Concent 32, Red Cell Distribution Width 21.1H, Platelet Count 196, Mean Platelet Volume 11.0H, Neutrophils (%) (Auto) 51, Lymphocytes (%) (Auto) 30 , Monocytes (%) (Auto) 15H, Eosinophils (%) (Auto) 5, Basophils (%) (Auto) 1, Neutrophils # (Auto) 2.8, Lymphocytes # (Auto) 1.7, Monocytes # (Auto) 0.8, Eosinophils # (Auto) 0.3, Basophils # (Auto) 0.0, Sodium Level 136, Potassium Level 4.6, Chloride Level 104, Carbon Dioxide Level 25, Anion Gap 7, Blood Urea Nitrogen 26H, Creatinine 1.12, Estimat Glomerular Filtration Rate > 60, BUN/ Creatinine Ratio 23, Glucose Level 84, Calcium Level 9.6 A/P: Assessment/Dx: CAD, CABG, Chest pain, PPM DVT/PE Hyperlipidemia, Hypertension/Previous postural hypotension, Microcytic anemia, Ischemic Dilated Cardiomyopathy/Mild Acute on chronic CHF, Incisional hernia. Plan: CAD, CABG, Chest pain, ACS ruled out. Continue aspirin and Lipitor. Plavix after incisional hernia surgery. PPM: Device interrogation showed normal sensing and pacing thresholds. DVT/PE: Eliquis was previously discontinued because of urinary bleeding. Hyperlipidemia, restart Lipitor. 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 For now no beta blockers or GABRIEL inhibitor. Might require Florinef or midodrine. Microcytic anemia, likely secondary to urinary bleeding. Will defer to the primary team. Ischemic Dilated Cardiomyopathy/Mild Acute on chronic CHF: Could not tolerate BB and GABRIEL inhibitors due hypotension. EF still 30-35%. LifeVest done. Will consider ICD upgrade as an outpatient. Incisional hernia. Patient will be considered at moderate risk for major adverse perioperative cardiac events undergoing an intermediate risk noncardiac surgery. I don't see any cardiac contraindication to the above-mentioned procedure. Chronic kidney disease: Referral to nephrology is recommended. Strongly recommend following the patient in office in one week. Thank you for your consultation. Please call me if you have any questions. Jordyn Santos MD, FACP, FACC, FSCAI, FHRS, CCDS Interventional Cardiology Cardiac Electrophysiology Vascular Medicine and Endovascular Interventions Gabrielle SANTOS MD Sep 17, 2017 1:26 pm
[2017-09-17] MEDS: ATORVASTATIN 20 MG (LIPITOR) TABLET PO SCH (20:24)
[2017-09-18 04:11] VITALS: BP 116/72
[2017-09-18 08:00] VITALS: BP 146/71
--- NOTE | 2017-09-18 09:56 | Progress Note ---
Subjective Date Seen by Provider: Sep 18, 2017 Time Seen by Provider: 09:54 Subjective/Events-last exam doing well. no new complaints. ready to have hernia fixed. denies n/v fever sweats chills shortness of breath or chest pain. has been cleared for surgical intervention. Objective Exam Vital Signs Date Time Temp Pulse Resp B/P (MAP) Pulse Ox O2 Delivery O2 Flow Rate FiO2 09/18/17 04:11 97.5 84 20 116/72 (87) 98 Room Air 09/17/17 23:44 97.8 64 20 107/63 (78) 99 Room Air 09/17/17 19:10 97.7 80 16 126/72 (90) 99 Room Air 09/17/17 16:12 99.0 82 16 100/56 (71) 99 Room Air 09/17/17 12:00 97.3 76 20 113/72 (86) 99 Room Air I & O 09/18/17 07:00 Intake Total 2160 ml Balance 2160 ml Capillary Refill : Less Than 3 Seconds General Appearance: No Apparent Distress, WD/WN HEENT: PERRL/EOMI Neck: Non Tender, Supple Respiratory: Lungs Clear, Normal Breath Sounds Cardiovascular: Regular Rate, Rhythm Gastrointestinal: normal bowel sounds, soft, tenderness (improved) Extremity: Normal Range of Motion, Non Tender, Pedal Edema (1+ to the mid tibia bilateral) Neurologic/Psychiatric: Alert, Oriented x3 Skin: Normal Color, Warm/Dry Assessment/Plan Assessment/Plan Assessment/Plan Incisional hernia, chest pain, dizziness life vest, hypotension monitor Patient cleared by cardiology for surgery. He is scheduled for Tuesday. Patient understands risks and benefits of laparoscopic incisional hernia repair possible open. Surgery tomorrow. Consent. npo after midnight Clinical Quality Measures DVT/VTE Risk/Contraindication: Risk Factor Score Per Nursin RFS Level Per Nursing on Admit: 4+=Very High PATSY MCADAMS DO Sep 18, 2017 09:56
--- NOTE | 2017-09-18 10:32 | Cardiology Progress Note ---
Cardiology SOAP Progress Note Subjective: No cardiac complaints. Objective: I&O/Vital Signs 09/18/17 09/18/17 09/18/17 09/18/17 12:00 16:55 19:40 21:00 Temp 96.9 98.2 98.4 Pulse 79 83 80 Resp 16 20 18 B/P (MAP) 132/66 (88) 117/73 (88) 146/72 (96) Pulse Ox 100 97 96 O2 Delivery Room Air Room Air Room Air Room Air 09/18/17 00:00 Intake Total 1610 ml Balance 1610 ml Weight (Pounds): 199 Weight (Ounces): 7.0 Weight (Calculated Kilograms): 90.776293 Constitutional: appears stated age, AAO x 3; No apparent distress; well- developed, well-nourished Respiratory: No accessory muscle use, No respiratory distress, No chest tender , No chest expansion is symmetric; chest is bilaterally symmetric; No lungs clear to percussion; lungs clear to auscultation; No crackles, No rhonchi, No rales, No stridor, No wheezing, No pleural rub, No other Cardiovascular: regular rate-rhythm; No irregularly irregular, No extra beats, No parasternal heave is noted, No JVD, No edema, No bradycardia, No tachycardia , No point of maximal impulse, No cardiac thrills are palpable; S1 and S2; No gallop/S3, No gallop/S4, No diastolic murmur, No systolic murmur, No friction rub, No click, No other Gastrointestional: No tender, No soft, No round, No distended, No pulsatile mass, No organomegaly, No guarding, No rebound, No tenderness, No hernia, No mass, No audible bowel sounds, No abnormal bowel sounds, No abdominal bruits, No spleenomegaly, No other Extremities: No normal range of motion, No non-tender, No normal inspection, No pedal edema, No calf tenderness, No normal capillary refill, No pelvis stable , No calf tenderness, No inflammation, No pedal edema, No slow capillary refill , No swelling, No other, No abrasion, No clubbing, No cyanosis, No ecchymosis, No laceration, No no lower extremity edema bilateral, No significant edema, No tenderness, No wound Neurologic/Psychiatric: no motor/sensory deficits, alert, normal mood/affect, oriented x 3, power is 5/5 both on sides Skin: No normal color, No warm/dry, No cyanosis, No cool, No diaphoresis, No damp, No ecchymosis, No jaundice, No mottled, No pallor, No rash, No tattoos/ piercings, No ulcerations, No rash on exposed areas, No ulcerations on exposed areas, No other A/P: Assessment/Dx: CAD, CABG, Chest pain, PPM DVT/PE Hyperlipidemia, Hypertension/Previous postural hypotension, Microcytic anemia, Ischemic Dilated Cardiomyopathy/Mild Acute on chronic CHF, Incisional hernia. Plan: CAD, CABG, Chest pain, ACS ruled out. Continue aspirin and Lipitor. Plavix after incisional hernia surgery. PPM: Device interrogation showed normal sensing and pacing thresholds. DVT/PE: Eliquis was previously discontinued because of urinary bleeding. Hyperlipidemia, restart Lipitor. 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 For now no beta blockers or GABRIEL inhibitor. Might require Florinef or midodrine. Microcytic anemia, likely secondary to urinary bleeding. Will defer to the primary team. Ischemic Dilated Cardiomyopathy/Mild Acute on chronic CHF: Could not tolerate BB and GABRIEL inhibitors due hypotension. EF still 30-35%. LifeVest done. Will consider ICD upgrade as an outpatient. Incisional hernia. Patient will be considered at moderate risk for major adverse perioperative cardiac events undergoing an intermediate risk noncardiac surgery. I don't see any cardiac contraindication to the above-mentioned procedure. Chronic kidney disease: Referral to nephrology is recommended. Strongly recommend following the patient in office in one week. Thank you for your consultation. Please call me if you have any questions. Jordyn Santos MD, FACP, FACC, FSCAI, FHRS, CCDS Interventional Cardiology Cardiac Electrophysiology Vascular Medicine and Endovascular Interventions Gabrielle SANTOS MD Sep 18, 2017 10:32
[2017-09-18] MEDS: ASPIRIN E.C. 81 MG (ECOTRIN) TAB PO SCH (10:58)
[2017-09-18 12:00] VITALS: BP 132/66
[2017-09-18 16:55] VITALS: BP 117/73
[2017-09-18 19:40] VITALS: BP 146/72
--- NOTE | 2017-09-18 20:33 | Progress Note (SOAP) ---
Subjective Subjective/Events-last exam Patient sitting up watching TV. No new concerns. Tolerating ambulation and PO diet Review of Systems Date Seen by Provider: Sep 18, 2017 Time Seen by Provider: 09:45 Pulmonary: No Dyspnea, No Cough Cardiovascular: No: Chest Pain, Palpitations, Edema Gastrointestinal: Abdominal Pain Genitourinary: No Dysuria, No Frequency Neurological: No: Weakness, Numbness, Confusion Objective Exam Last Set of Vital Signs Vital Signs Date Time Temp Pulse Resp B/P (MAP) Pulse Ox O2 Delivery O2 Flow Rate FiO2 09/18/17 16:55 98.2 83 20 117/73 (88) 97 Room Air Capillary Refill : Less Than 3 SecondsLess Than 3 Seconds I&O Intake and Output 09/18/17 00:00 Intake Total 1810 ml Balance 1810 ml Intake Oral 1810 ml # Voids 7 General: Alert, Oriented X3, Cooperative, No Acute Distress Lungs: Clear to Auscultation, Normal Air Movement Heart: Regular Rate, No Murmurs Abdomen: Normal Bowel Sounds, Soft, Other (+ incisional hernia that is ttp, no skin color change) Extremities: No Edema, No Tenderness/Swelling Results/Procedures Radiology Date of Exam: 09/13/17 CHEST 1 VIEW, AP/PA ONLY INDICATION: Chest pain. TIME OF EXAM: 05:35 p.m. Correlation is made with prior study from 07/26/2017. FINDINGS: Cardiac pacemaker remains in place. The lungs are clear. No infiltrate or failure is detected. No effusion or pneumothorax is seen. IMPRESSION: No acute cardiopulmonary process is detected. Assessment/Plan Assessment/Plan (1) Chest pain Status: Acute Assessment & Plan: - High risk patient s/p CABG last month, CE neg, pain likely 2/2 to incisional hernia - Echo today - Cardiology consulted 09/15: Still having some dizziness, waiting for ICD interrogation and life vest, + orthostatics 09/16: Pain has resolved, waiting for life vest 09/18: Resolves Qualifiers: Qualified Codes: R07.9 - Chest pain, unspecified (2) Incisional hernia Status: Acute Assessment & Plan: - Dr Meng consulted - Cardiac clearance needed for surgery 09/15: Scheduled for Monday 09/18: Surgery tomorrow, NPO after midnight Qualifiers: Qualified Codes: K43.2 - Incisional hernia without obstruction or gangrene (3) Microcytic anemia Status: Acute Assessment & Plan: - Iron studies pending 09/15: Iron def anemia, iron replaced, Patient will need outpatient colonoscopy 09/16: Patient states that he had colonoscopy in June that was normal, stool occult neg, continue IV iron replacement (4) CAD (coronary artery disease) of bypass graft Status: Chronic Assessment & Plan: - Patient not currently on antiplatelet therapy due to hematuria and not on ACEI or BB due to hypotension, Cardiology managing Qualifiers: Qualified Codes: I25.810 - Atherosclerosis of coronary artery bypass graft(s ) without angina pectoris (5) Renal insufficiency Status: Acute Assessment & Plan: - Conservative IVF hydration 09/15: Needs outpatient referral to nephrology (6) Systolic CHF Status: Chronic Assessment & Plan: 09/15: Life vest rep to come talk to patient today 09/18: Life vest, unable to tolerate BB, ACEI or spironolactone Qualifiers: Qualified Codes: I50.22 - Chronic systolic (congestive) heart failure (7) Chronic pulmonary embolism Status: Chronic Assessment & Plan: - Patient not on blood thinner due to hematuria, no hypoxia currently Qualifiers: Qualified Codes: I27.82 - Chronic pulmonary embolism (8) Discharge planning issues Status: Acute Assessment & Plan: 09/15: Patient [facility], SW consult placed 09/18: Plan to d/c to SNF after surgery if accepted Clinical Quality Measures DVT/VTE Risk/Contraindication: Risk Factor Score Per Nursin RFS Level Per Nursing on Admit: 4+=Very High ROBE LOMBARDI MD Sep 18, 2017 8:33 pm
[2017-09-18] MEDS: ATORVASTATIN 20 MG (LIPITOR) TABLET PO SCH (21:23)
[2017-09-19] VITALS (7 sets, daily range): BP systolic 124–135; BP diastolic 64–76
[2017-09-19 05:38] LABS: BASOPHILS % (AUTO) 1 % (0-10); EOSINOPHILS # (AUTO) 0.3 10^3/uL (0.0-0.3); EOSINOPHILS % (AUTO) 5 % (0-10); HEMATOCRIT 34 % (40-54); HEMOGLOBIN 10.6 G/DL (13.3-17.7); LYMPHOCYTES # (AUTO) 1.7 X 10^3 (1.0-4.0); LYMPHOCYTES % (AUTO) 32 % (12-44); MEAN CORPUSCULAR HEMOGLOBIN 23 PG (25-34); MEAN CORPUSCULAR HGB CONC 31 G/DL (32-36); MEAN CORPUSCULAR VOLUME 75 FL (80-99); MEAN PLATELET VOLUME 10.8 FL (7.4-10.4); MONOCYTES # (AUTO) 0.7 X 10^3 (0.0-1.0); MONOCYTES % (AUTO) 14 % (0-12); NEUTROPHILS # (AUTO) 2.6 X 10^3 (1.8-7.8); NEUTROPHILS % (AUTO) 49 % (42-75); PLATELET COUNT 199 10^3/uL (130-400); RED BLOOD COUNT 4.56 10^6/uL (4.35-5.85); RED CELL DISTRIBUTION WIDTH 21.9 % (10.0-14.5); WHITE BLOOD COUNT 5.3 10^3/uL (4.3-11.0)
[2017-09-19 06:00] LABS: ALANINE AMINOTRANSFERASE 7 U/L (0-55); ALKALINE PHOSPHATASE 75 U/L (40-136); BILIRUBIN,TOTAL 0.5 MG/DL (0.1-1.0); BUN/CREATININE RATIO 23; CALCIUM 9.7 MG/DL (8.5-10.1); CARBON DIOXIDE 27 MMOL/L (21-32); CHLORIDE 104 MMOL/L (98-107); CREATININE SERUM 1.11 MG/DL (0.60-1.30); GFR ESTIMATED > 60; GLUCOSE 84 MG/DL (70-105); POTASSIUM 4.7 MMOL/L (3.6-5.0); SODIUM 138 MMOL/L (135-145); TOTAL PROTEIN 6.3 GM/DL (6.4-8.2)
[2017-09-19 06:09] LABS: INR 1.1 (0.8-1.4); PROTHROMBIN TIME PATIENT 14.7 SEC (12.2-14.7)
[2017-09-19] MEDS: ASPIRIN E.C. 81 MG (ECOTRIN) TAB PO SCH (08:47)
[2017-09-19] MEDS ORDERED: ROCURONIUM 10 MG/ML 5 ML SYRINGE IV ONE (09:13)
[2017-09-19] MEDS ORDERED: DEXAMETHASONE 10 MG/ML (DECADRON) 1 ML VIAL ONE (09:13)
[2017-09-19] MEDS ORDERED: GLYCOPYRROLATE 0.2 MG/ML (ROBINUL) 2 ML VIAL ONE (09:13)
[2017-09-19] MEDS ORDERED: proPOfol 200 MG/20 ML (DIPRIVAN) VIAL IV ONE (09:13)
[2017-09-19] MEDS ORDERED: fentaNYL INJECTION 100 MCG/2 ML AMP ONE ×2 (09:13→10:55)
[2017-09-19] MEDS ORDERED: LIDOCAINE PF 2% 5 ML (XYLOCAINE) VIAL ONE (09:13)
[2017-09-19] MEDS ORDERED: ONDANSETRON 4 MG/2 ML (SDV) Z0FRAN ONE (09:13)
[2017-09-19] MEDS ORDERED: SEVOFLURANE (ULTANE) 15 ML INHAL SOLN ONE ×4 (09:13→11:08)
[2017-09-19] MEDS ORDERED: LIDOCAINE 1% INJ 20 ML 20 ML VIAL ONE (09:21)
[2017-09-19] MEDS ORDERED: BUPIVACAINE 0.5% 30 ML (SENSORCAINE) VIAL ONE (09:21)
--- NOTE | 2017-09-19 09:23 | Progress Note-Pre Operative ---
Pre-Operative Progress Note H&P Reviewed The H&P was reviewed, patient examined and no changes noted. Date Seen by Provider: Sep 19, 2017 Time Seen by Provider: : Date H&P Reviewed: Sep 19, 2017 Time H&P Reviewed: : Pre-Operative Diagnosis: incisional hernia PATSY MCADAMS DO Sep 19, 2017 09:23
[2017-09-19] MEDS: LACTATED RINGERS 1,000 ML IV PRN ×2 (09:30→11:25)
[2017-09-19] MEDS ORDERED: ceFAZolin 1,000 MG (ANCEF) VIAL ONE (09:39)
[2017-09-19] MEDS ORDERED: NS (IVPB) 100 ML ONE (09:39)
[2017-09-19] MEDS ORDERED: ETOMIDATE IV SOLN 20 MG/10 ML VIAL ONE (09:50)
[2017-09-19] MEDS ORDERED: PHENYLEPHRINE 100 MCG/ML 10 ML (ANESTHESIA) SYR ONE (10:00)
--- NOTE | 2017-09-19 10:49 | Progress Note-Hospitalist ---
Subjective HPI/CC On Admission Date Seen by Provider: Sep 19, 2017 Time Seen by Provider: 13:20 Subjective/Events-last exam Patient doing much better but is sore from incisional hernia surgery LifeVest at the bedside Once to go [facility] tomorrow Social work on board and I did recheck out Sharron Checked meds and labs Overall doing much better Review of Systems General: Malaise Gastrointestinal: Abdominal Pain Objective Exam Vital Signs Vital Signs Date Time Temp Pulse Resp B/P (MAP) Pulse Ox O2 Delivery O2 Flow Rate FiO2 09/19/17 12:35 97.2 80 16 132/76 (94) 94 Room Air Capillary Refill : Less Than 3 SecondsLess Than 3 Seconds General Appearance: No Apparent Distress, WD/WN Neck: Full Range of Motion, Normal Inspection, Non Tender, Supple, Carotid Bruit Respiratory: Chest Non Tender, Lungs Clear, Normal Breath Sounds, No Accessory Muscle Use, No Respiratory Distress Cardiovascular: Regular Rate, Rhythm, No Edema, No Gallop, No JVD, No Murmur, Normal Peripheral Pulses Gastrointestinal: Normal Bowel Sounds, No Organomegaly, No Pulsatile Mass, Non Tender, Soft Back: Normal Inspection, No CVA Tenderness, No Vertebral Tenderness Extremity: Normal Capillary Refill, Normal Inspection, Normal Range of Motion, Non Tender, No Calf Tenderness, No Pedal Edema Neurologic/Psychiatric: Alert, Oriented x3, No Motor/Sensory Deficits, Normal Mood/Affect Skin: Normal Color, Warm/Dry Lymphatic: No Adenopathy Results/Procedures Lab Laboratory Tests 09/19/17 05:05 Patient resulted labs reviewed. Assessment/Plan Assessment and Plan Assess & Plan/Chief Complaint Assessment: Status post incisional hernia repair uncomplicated Congestive heart failure with severely depressed systolic function will wear LifeVest at discharge CAD previous bypass surgery one year ago Plan: for PRP tomorrow Monitor BP and labs closely Pain control Diagnosis/Problems Diagnosis/Problems (1) Debility Status: Acute (2) S/P hernia repair Status: Acute (3) Discharge planning issues Status: Acute (4) Systolic CHF Status: Chronic Qualifiers: Heart failure chronicity: chronic Qualified Codes: I50.22 - Chronic systolic (congestive) heart failure (5) Chronic pulmonary embolism Status: Chronic Qualifiers: Pulmonary embolism type: other Acute cor pulmonale presence: without acute cor pulmonale Qualified Codes: I27.82 - Chronic pulmonary embolism (6) CAD (coronary artery disease) of bypass graft Status: Chronic Qualifiers: [place] vs. transplanted heart: [place] heart Associated angina: without angina Qualified Codes: I25.810 - Atherosclerosis of coronary artery bypass graft(s) without angina pectoris (7) Incisional hernia Status: Resolved Qualifiers: Obstruction and gangrene presence: without obstruction or gangrene Qualified Codes: K43.2 - Incisional hernia without obstruction or gangrene (8) Renal insufficiency Status: Acute Clinical Quality Measures DVT/VTE Risk/Contraindication: Risk Factor Score Per Nursin RFS Level Per Nursing on Admit: 4+=Very High DEBBIE HOPPER DO Sep 19, 2017 10:49
[2017-09-19] MEDS ORDERED: NEOSTIGMINE 1 MG/ML 5 ML SYRINGE ONE (11:21)
--- NOTE | 2017-09-19 11:32 | Progress Note-Post Operative ---
Post-Operative Progess Note Surgeon (s)/Soap Boiler (s) Surgeon PATSY MCADAMS DO Soap Boiler: Dr. Garcia Pre-Operative Diagnosis incisional hernia Post-Operative Diagnosis same Procedure & Operative Findings Date of Procedure 09/19/17 Procedure Performed/Findings lap incisional hernia repair Anesthesia Type general Estimated Blood Loss Estimated blood loss (mL): minimal Specimens/Packing Specimens Removed none PATSY MCADAMS DO Sep 19, 2017 11:31
[2017-09-19] MEDS ORDERED: ACHD5005 PO (11:35)
[2017-09-19] MEDS ORDERED: DOCU-143 PO (11:35)
--- NOTE | 2017-09-19 11:37 | Discharge Inst-Simple/Standard ---
Discharge Inst-Standard Discharge Medications New, Converted or Re-Newed RX: RX on Chart Patient Instructions/Follow Up Plan of Care/Instructions/FU: [address] [employer] Perea Wear life vest as explained. Keep incisions clean and dry. Activity as Tolerated: No Discharge Diet: Regular Diet Other Inst to Patient Follow up Appt: Make appointment for 2 week. Instructions: No lifting greater than 10 pounds. No strenuous activity. May shower in 24 hours, no tub bath or soaking. Use incentive spirometer at home as directed. No Smoking Skin/Wound Care: May remove bandages in 24 hours. Symptoms to Report: Appetite Changes, Extremity Discoloration, Numbness/Tingling, Swelling Increased , Bleeding Excessive, Eyesight Changes, Pain Increased, Urine Color Change, Constipation(Persistent), Fever over 101 degree F, Pain/Pressure in chest, Urinating Difficulty, Cough Up/Vomit Blood, Heart Beat Irreg/Pounding, Pain/ Pressure in jaw, Vaginal Bleeding Increase, Cramps in feet or legs, Lightheadedness, Pain/Pressure in shoulder, Diarrhea(Persistent), Memory Changes Suddenly, Questions/Concerns, Weight gain consecutive days, Dizziness/ Fainting, Nausea/Vomiting, Shortness of Breath, Weight gain over 2 pounds If questions or concerns contact your physician Or seek help at emergency department. PATSY MCADAMS DO Sep 19, 2017 11:37
[2017-09-19] MEDS ORDERED: HYDROmorphone 1 MG/ML (DILAUDID) 1 ML SYRINGE ONE (11:50)
[2017-09-19] MEDS: HYDROmorphone 1 MG/ML (DILAUDID) 1 ML SYRINGE IV PRN ×2 (11:53→12:03)
[2017-09-19] MEDS ORDERED: ONDANSETRON 4 MG/2 ML (SDV) Z0FRAN IVP PRN (12:00)
[2017-09-19] MEDS ORDERED: fentaNYL INJECTION 100 MCG/2 ML AMP IVP PRN (12:00)
--- NOTE | 2017-09-19 12:35 | Cardiology Progress Note ---
Cardiology SOAP Progress Note Subjective: No cardiac complaints. Status post incision hernia surgery. Objective: I&O/Vital Signs 09/19/17 09/19/17 09/19/17 09/19/17 04:15 08:00 09:00 12:35 Temp 97.5 97.9 97.2 Pulse 79 81 80 Resp 20 20 16 B/P (MAP) 124/64 (84) 133/74 (93) 132/76 (94) Pulse Ox 98 99 94 O2 Delivery Room Air Room Air Room Air Room Air 09/19/17 00:00 Intake Total 700 ml Balance 700 ml Weight (Pounds): 201 Weight (Ounces): 4.8 Weight (Calculated Kilograms): 91.178421 Constitutional: appears stated age, AAO x 3; No apparent distress; well- developed, well-nourished Respiratory: No accessory muscle use, No respiratory distress, No chest tender , No chest expansion is symmetric; chest is bilaterally symmetric; No lungs clear to percussion; lungs clear to auscultation; No crackles, No rhonchi, No rales, No stridor, No wheezing, No pleural rub, No other Cardiovascular: regular rate-rhythm; No irregularly irregular, No extra beats, No parasternal heave is noted, No JVD, No edema, No bradycardia, No tachycardia , No point of maximal impulse, No cardiac thrills are palpable; S1 and S2; No gallop/S3, No gallop/S4, No diastolic murmur, No systolic murmur, No friction rub, No click, No other Gastrointestional: No tender, No soft, No round, No distended, No pulsatile mass, No organomegaly, No guarding, No rebound, No tenderness, No hernia, No mass, No audible bowel sounds, No abnormal bowel sounds, No abdominal bruits, No spleenomegaly, No other Extremities: No normal range of motion, No non-tender, No normal inspection, No pedal edema, No calf tenderness, No normal capillary refill, No pelvis stable , No calf tenderness, No inflammation, No pedal edema, No slow capillary refill , No swelling, No other, No abrasion, No clubbing, No cyanosis, No ecchymosis, No laceration, No no lower extremity edema bilateral, No significant edema, No tenderness, No wound Neurologic/Psychiatric: no motor/sensory deficits, alert, normal mood/affect, oriented x 3, power is 5/5 both on sides Skin: No normal color, No warm/dry, No cyanosis, No cool, No diaphoresis, No damp, No ecchymosis, No jaundice, No mottled, No pallor, No rash, No tattoos/ piercings, No ulcerations, No rash on exposed areas, No ulcerations on exposed areas, No other Results/Procedures: Labs Laboratory Tests 09/19/17 05:05: White Blood Count 5.3, Red Blood Count 4.56, Hemoglobin 10.6L, Hematocrit 34L, Mean Corpuscular Volume 75L, Mean Corpuscular Hemoglobin 23L, Mean Corpuscular Hemoglobin Concent 31L, Red Cell Distribution Width 21.9H, Platelet Count 199, Mean Platelet Volume 10.8H, Neutrophils (%) (Auto) 49, Lymphocytes (%) (Auto) 32 , Monocytes (%) (Auto) 14H, Eosinophils (%) (Auto) 5, Basophils (%) (Auto) 1, Neutrophils # (Auto) 2.6, Lymphocytes # (Auto) 1.7, Monocytes # (Auto) 0.7, Eosinophils # (Auto) 0.3, Basophils # (Auto) 0.0, Prothrombin Time 14.7, INR Comment 1.1, Sodium Level 138, Potassium Level 4.7, Chloride Level 104, Carbon Dioxide Level 27, Anion Gap 7, Blood Urea Nitrogen 26H, Creatinine 1.11, Estimat Glomerular Filtration Rate > 60, BUN/Creatinine Ratio 23, Glucose Level 84, Calcium Level 9.7, Total Bilirubin 0.5, Aspartate Amino Transf (AST/SGOT) 15 , Alanine Aminotransferase (ALT/SGPT) 7, Alkaline Phosphatase 75, Total Protein 6.3L, Albumin 4.0 Microbiology 09/18/17 MRSA Screen - Final, Complete MRSA not isolated A/P: Assessment/Dx: CAD, CABG, Chest pain, PPM DVT/PE Hyperlipidemia, Hypertension/Previous postural hypotension, Microcytic anemia, Ischemic Dilated Cardiomyopathy/Mild Acute on chronic CHF, s/p Incisional hernia surgery. Plan: CAD, CABG, Chest pain, ACS ruled out. Continue aspirin and Lipitor. Plavix after incisional hernia surgery. PPM: Device interrogation showed normal sensing and pacing thresholds. DVT/PE: Eliquis was previously discontinued because of urinary bleeding. Hyperlipidemia, restart Lipitor. Hypertension/Previous postural hypotension, hypertension a auxiliary. For now no beta blockers or GABRIEL inhibitor. Might require Florinef or midodrine. Microcytic anemia, likely secondary to urinary bleeding. Will defer to the primary team. Ischemic Dilated Cardiomyopathy/Mild Acute on chronic CHF: Could not tolerate BB and GABRIEL inhibitors due hypotension. EF still 30-35%. LifeVest done. Will consider ICD upgrade as an outpatient. Incisional hernia. Chronic kidney disease: Referral to nephrology is recommended. Strongly recommend following the patient in office in one week after discharge. Thank you for your consultation. Please call me if you have any questions. Jordyn Santos MD, FACP, FACC, FSCAI, FHRS, CCDS Interventional Cardiology Cardiac Electrophysiology Vascular Medicine and Endovascular Interventions Gabrielle SANTOS MD Sep 19, 2017 12:35 pm
[2017-09-19] MEDS ORDERED: ACETAMINOPHEN 325 MG TABLET PO PRN (14:30)
[2017-09-19] MEDS ORDERED: IBUPROFEN 600 MG (MOTRIN) TAB PO PRN (14:30)
--- NOTE | 2017-09-19 14:37 | Anesthesia-General Post-Op ---
General Patient Condition Mental Status/LOC: Same as Preop Cardiovascular: Satisfactory Nausea/Vomiting: Absent Respiratory: Satisfactory Pain: Controlled Complications: Absent Post Op Complications Complications None Follow Up Care/Instructions Patient Instructions None needed. Anesthesia/Patient Condition Patient Condition Patient is doing well, no complaints, stable vital signs, no apparent adverse anesthesia problems. No complications reported per nursing. PIEDAD BORDEN CRNA Sep 19, 2017 14:37
[2017-09-19] MEDS: HYDROcodone/APAP 5 MG/325 MG (LORTAB) TAB PO PRN (16:16)
--- NOTE | 2017-09-19 16:19 | OPERATIVE REPORT ---
DATE OF SERVICE: 09/19/2017 PREOPERATIVE DIAGNOSIS: Incisional hernia. POSTOPERATIVE DIAGNOSIS: Incisional hernia. PROCEDURE: Laparoscopic incisional hernia repair. SURGEON: Patsy Meng DO SOLDERING MACHINE TENDER: Dr. Garcia, assisted in retraction, dissection and closure. ESTIMATED BLOOD LOSS: Minimal. COMPLICATIONS: None. ANESTHESIA: General. ESTIMATED BLOOD LOSS: Minimal. COMPLICATIONS: None. INDICATIONS: The patient is a 71-year-old male with incisional hernia post CABG. He understands the risks and benefits of repair and wishes to proceed. Consent was signed on the chart. DESCRIPTION OF PROCEDURE: The patient was taken to the operating suite. He was prepped and draped in sterile fashion. Surgical pause was performed. Katarina technique was used to enter the abdomen in the left upper quadrant. A balloon trocar was inserted and pneumoperitoneum was achieved. Under direct visualization of the laparoscope, a 5 mm trocar was placed at the umbilicus and a 5 mm trocar was placed in the right upper quadrant. The falciform ligament was then taken down with LigaSure. The preperitoneum around the hernia was then started taken down. Demonstrating a fairly large defect. Therefore, a small incision was made at the hernia site, which the hernia sac was then dissected around and the fascia was then reattached up to the superior portion of the defect in a caudad to cephalad fashion. This was closed with 0 Vicryl reducing the hernia sac. The hernia sac was then taken down with harmonic intraabdominally. Totally used as a cover in the end. A 4 x 6 echo Ventralight mesh was then inserted into the abdomen and grasped through the incision with a Roger-Jessica. This was then tacked circumferentially with SecureStrap Tacker. The balloons were then removed and an inner crown was created as well. The hernia sac was then placed over the mesh and tacked to the mesh for coverage. The abdomen was then desufflated. The trocars were removed. The 12 mm fascial defect was then closed using 0 Vicryl in a [id number] fashion. The abdomen was then washed and dried and the skin was closed with jessica. The patient tolerated the procedure well without any complications. He was taken to recovery room in stable condition. Job ID: [id number] DocumentID: [id number] Dictated Date: 09/19/2017 11:40:57 Ride Operator Date: 09/19/2017 16:18:05 Dictated By: PATSY MENG DO
[2017-09-19] MEDS: ATORVASTATIN 20 MG (LIPITOR) TABLET PO SCH (20:44)
[2017-09-19] MEDS ORDERED: ATORVASTATIN 20 MG (LIPITOR) TABLET PO SCH (21:00)
[2017-09-20 00:25] VITALS: BP 115/61
[2017-09-20] MEDS: HYDROcodone/APAP 5 MG/325 MG (LORTAB) TAB PO PRN ×2 (01:29→10:29)
[2017-09-20 04:24] VITALS: BP 114/61
[2017-09-20 08:30] VITALS: BP 115/67
[2017-09-20] MEDS: ASPIRIN E.C. 81 MG (ECOTRIN) TAB PO SCH (09:09)
[2017-09-20] MEDS ORDERED: ATOR20TA66 PO (10:09)
[2017-09-20] MEDS ORDERED: ASPI-983 PO (10:09)
--- NOTE | 2017-09-20 10:12 | D/C HH Face to Face Order ---
D/C Face to Face Orders Instructions for Patient Patient Instructions/FollowUp: [facility] appt as scheduled Physician to follow Patient: [facility] Xenia Madden Discharge Diet for Home: Cardiac Diet Patient Problems: CHF requiring life vest s/p hernia repair Urinary retention with in-dwelling catheter Patient Data-Allergies,Ht & Wt Patient Allergies: Coded Allergies: metoprolol (Unverified Allergy, Unknown, 09/18/14) "sunburn" rivaroxaban (Unverified Allergy, Unknown, 12/18/14) VOMITING/DIARRHEA Height (Feet): 5 Height (Inches): 11.00 Weight (Pounds): 205 Weight (Ounces): 9.0 Home Health Need/Face to Face Date of Face to Face: Sep 20, 2017 Clinical Findings: Generalized weakness and fatigue, Unsteady gait I have seen Pt [id number]: Yes Discharged To: Home Diagnosis/Conditions: CHF requiring life vest s/p hernia repair Urinary retention with in-dwelling catheter Patient is Homebound due to: Marie fall risk due to instabilty, Pain w/ ambulation Homebound Status Due to the above stated illness, injury or surgical procedure (medical condition or diagnosis) and associated clinical findings, the patient is homebound because of his/her inability to leave home except with aid of a supportive device and/or person AND leaving the home requires a considerable and taxing effort or is medically contraindicated. Pt req the following assistanc: [facility] Line Start Date: Sep 19, 2017 Line Start Time: 0930 Line Type: Peripheral IV Site Location: Hand Certify Stmt I certify that this patient is under my care and that I, a nurse practitioner or a physician; a occupational therapist assistants working with me, had a face to face encounter that - meets the physician face to face encounter requirements with this patient as dated. DEBBIE HOPPER DO Sep 20, 2017 10:12
--- NOTE | 2017-09-20 10:13 | Discharge Summary-Hospitalist ---
Diagnosis/Chief Complaint Date of Admission Sep 16, 2017 at 13:50 Date of Discharge Discharge Date: Sep 20, 2017 Discharge Diagnosis (1) Debility Status: Acute (2) S/P hernia repair Status: Acute (3) Discharge planning issues Status: Acute (4) Systolic CHF Status: Chronic (5) Chronic pulmonary embolism Status: Chronic (6) CAD (coronary artery disease) of bypass graft Status: Chronic (7) Incisional hernia Status: Resolved (8) Renal insufficiency Status: Acute Discharge Summary Discharge Physical Exam Allergies: Coded Allergies: metoprolol (Unverified Allergy, Unknown, 09/18/14) "sunburn" rivaroxaban (Unverified Allergy, Unknown, 12/18/14) VOMITING/DIARRHEA Vitals & I&Os Vital Signs Date Time Temp Pulse Resp B/P (MAP) Pulse Ox O2 Delivery O2 Flow Rate FiO2 09/20/17 19:20 09/20/17 15:50 98.6 84 18 96 Room Air General Appearance: Alert, Oriented X3, Cooperative Respiratory: Clear to Auscultation, Normal Air Movement Cardiovascular: Regular Rate Neuro: Normal Gait, Normal Speech, Strength at 5/5 X4 Ext Psych/Mental Status: Mental Status NL, Mood NL Hospital Course Hospital course: patient had a complex hospital course. Patient was admitted for chest pain after having coronary artery bypass graft one year ago. He was found to have systolic dysfunction requiring LifeVest arrangement. Labs remained stable but the incisional hernia caused so much abdominal pain that required repair during hospital stay by Dr. Meng in an uncomplicated manner. He wanted to go to the custodial at discharge but insurance denied that request sent he was sent home with home health and physical therapy and will have close follow-up with [facility] the day following discharge. Labs (last 24 hrs) Microbiology 09/18/17 MRSA Screen - Final, Complete MRSA not isolated Patient resulted labs reviewed. Discussion & Recommendations Discharge Planning: <30 minutes discharge planning Discharge Home Medications: Active Scripts Active Aspirin EC (Aspirin) 81 Mg Tablet. 81 Mg PO DAILY Atorvastatin Calcium 20 Mg Tablet 20 Mg PO HS Hydrocodone/Acetaminophen 5/325mg Tablet (Acetaminophen/Hydrocodone Bitart) 1 Tab Tab 1 Tab PO Q4H PRN Colace (Docusate Sodium) 100 Mg Capsule 100 Mg PO BID Reported Omeprazole 20 Mg Capsule.dr 20 Mg PO BID Fish Oil 1,000 mg Capsule ([place] 3 Polyunsat Fatty Acids) 1,000 Mg Cap 1,000 Mg PO DAILY Daily Multiple Vitamin (Multivitamin) 1 Each Tablet 1 Tab PO DAILY Instructions to patient/family Please see electronic discharge instructions given to patient. Clinical Quality Measures DVT/VTE Risk/Contraindication: Risk Factor Score Per Nursin RFS Level Per Nursing on Admit: 4+=Very High Problem Qualifiers (1) Systolic CHF: Heart failure chronicity: chronic Qualified Codes: I50.22 - Chronic systolic (congestive) heart failure (2) Chronic pulmonary embolism: Pulmonary embolism type: other Acute cor pulmonale presence: without acute cor pulmonale Qualified Codes: I27.82 - Chronic pulmonary embolism (3) CAD (coronary artery disease) of bypass graft: [place] vs. transplanted heart: [place] heart Associated angina: without angina Qualified Codes: I25.810 - Atherosclerosis of coronary artery bypass graft(s) without angina pectoris (4) Incisional hernia: Obstruction and gangrene presence: without obstruction or gangrene Qualified Codes: K43.2 - Incisional hernia without obstruction or gangrene DEBBIE HOPPER DO Sep 20, 2017 10:13
[2017-09-20 11:46] VITALS: BP 120/61
[2017-09-20] MEDS ORDERED: fentaNYL INJECTION 100 MCG/2 ML AMP IVP NR (15:15)
[2017-09-20 15:50] VITALS: BP 141/73
--- NOTE | 2017-09-20 16:41 | D/C HH Face to Face Order ---
D/C Face to Face Orders Instructions for Patient Patient Instructions/FollowUp: [facility] appt as scheduled Physician to follow Patient: [facility] Discharge Diet for Home: Cardiac Diet Patient Problems: CHF using lifevest Urinary retention requiring solo cath Hernia repair Patient Data-Allergies,Ht & Wt Patient Allergies: Coded Allergies: metoprolol (Unverified Allergy, Unknown, 09/18/14) "sunburn" rivaroxaban (Unverified Allergy, Unknown, 12/18/14) VOMITING/DIARRHEA Height (Feet): 5 Height (Inches): 11.00 Weight (Pounds): 205 Weight (Ounces): 9.0 Home Health Need/Face to Face Date of Face to Face: Sep 20, 2017 Clinical Findings: Generalized weakness and fatigue, Unsteady gait I have seen Pt [id number]: Yes Discharged To: Home Diagnosis/Conditions: CHF requiring life vest s/p hernia repair Urinary retention with in-dwelling catheter Patient is Homebound due to: Marie fall risk due to instabilty, Pain w/ ambulation Homebound Status Due to the above stated illness, injury or surgical procedure (medical condition or diagnosis) and associated clinical findings, the patient is homebound because of his/her inability to leave home except with aid of a supportive device and/or person AND leaving the home requires a considerable and taxing effort or is medically contraindicated. Pt req the following assistanc: [facility] Nursing Orders Home Health Services Order: Nursing Services, Horse Show Manager-Evaluate & Treat, Physical Therapy-Evaluate & Treat Home Health Infusion Therapy Line Start Date: Sep 19, 2017 Line Start Time: 0930 Line Type: Peripheral IV Site Location: Hand Certify Stmt I certify that this patient is under my care and that I, a nurse practitioner or a physician; a assistant fitness manager working with me, had a face to face encounter that - meets the physician face to face encounter requirements with this patient as dated. DEBBIE HOPPER DO Sep 20, 2017 16:41
--- NOTE | 2017-09-20 16:55 | Cardiology Progress Note ---
Cardiology SOAP Progress Note Subjective: No chest pain. Objective: I&O/Vital Signs 09/20/17 09/20/17 09/20/17 11:46 15:50 19:20 Temp 98.7 98.6 Pulse 79 84 Resp 16 18 B/P (MAP) 120/61 (80) 141/73 (95) Pulse Ox 92 96 O2 Delivery Room Air Room Air 09/20/17 00:00 Intake Total 1246 ml Output Total 1110 ml Balance 136 ml Weight (Pounds): 205 Weight (Ounces): 9.0 Weight (Calculated Kilograms): [id number] Constitutional: appears stated age, AAO x 3; No apparent distress; well- developed, well-nourished Respiratory: No accessory muscle use, No respiratory distress, No chest tender , No chest expansion is symmetric; chest is bilaterally symmetric; No lungs clear to percussion; lungs clear to auscultation; No crackles, No rhonchi, No rales, No stridor, No wheezing, No pleural rub, No other Cardiovascular: regular rate-rhythm; No irregularly irregular, No extra beats, No parasternal heave is noted, No JVD, No edema, No bradycardia, No tachycardia , No point of maximal impulse, No cardiac thrills are palpable; S1 and S2; No gallop/S3, No gallop/S4, No diastolic murmur, No systolic murmur, No friction rub, No click, No other Gastrointestional: No tender, No soft, No round, No distended, No pulsatile mass, No organomegaly, No guarding, No rebound, No tenderness, No hernia, No mass, No audible bowel sounds, No abnormal bowel sounds, No abdominal bruits, No spleenomegaly, No other Extremities: No normal range of motion, No non-tender, No normal inspection, No pedal edema, No calf tenderness, No normal capillary refill, No pelvis stable , No calf tenderness, No inflammation, No pedal edema, No slow capillary refill , No swelling, No other, No abrasion, No clubbing, No cyanosis, No ecchymosis, No laceration, No no lower extremity edema bilateral, No significant edema, No tenderness, No wound Neurologic/Psychiatric: no motor/sensory deficits, alert, normal mood/affect, oriented x 3, power is 5/5 both on sides Skin: No normal color, No warm/dry, No cyanosis, No cool, No diaphoresis, No damp, No ecchymosis, No jaundice, No mottled, No pallor, No rash, No tattoos/ piercings, No ulcerations, No rash on exposed areas, No ulcerations on exposed areas, No other Results/Procedures: Labs Microbiology 09/18/17 MRSA Screen - Final, Complete MRSA not isolated A/P: Assessment/Dx: CAD, CABG, Chest pain, PPM DVT/PE Hyperlipidemia, Hypertension/Previous postural hypotension, Microcytic anemia, Ischemic Dilated Cardiomyopathy/Mild Acute on chronic CHF, s/p Incisional hernia surgery. Plan: CAD, CABG, Chest pain, ACS ruled out. Continue aspirin and Lipitor. Plavix after incisional hernia surgery. PPM: Device interrogation showed normal sensing and pacing thresholds. DVT/PE: Eliquis was previously discontinued because of urinary bleeding. Hyperlipidemia, restart Lipitor. 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 For now no beta blockers or GABRIEL inhibitor. Might require Florinef or midodrine. Microcytic anemia, likely secondary to urinary bleeding. Will defer to the primary team. Ischemic Dilated Cardiomyopathy/Mild Acute on chronic CHF: Could not tolerate BB and GABRIEL inhibitors due hypotension. EF still 30-35%. LifeVest done. Will consider ICD upgrade as an outpatient. Incisional hernia. Chronic kidney disease: Referral to nephrology is recommended. Strongly recommend following the patient in office in one week after discharge. Thank you for your consultation. Please call me if you have any questions. Jordyn Santos MD, FACP, FACC, FSCAI, FHRS, CCDS Interventional Cardiology Cardiac Electrophysiology Vascular Medicine and Endovascular Interventions Gabrielle SANTOS MD Sep 20, 2017 16:55
[2017-09-20] MEDS ORDERED: ATORVASTATIN 20 MG (LIPITOR) TABLET PO NR (18:19)
--- NOTE | 2017-09-20 18:50 | Progress Note ---
Subjective Date Seen by Provider: Sep 20, 2017 Time Seen by Provider: 18:44 Subjective/Events-last exam Patient states he having a fair mount of pain. He is ambulating. Tolerating diet. Denies n/v fever sweats chills shortness of breath or chest pain. Objective Exam Vital Signs Date Time Temp Pulse Resp B/P (MAP) Pulse Ox O2 Delivery O2 Flow Rate FiO2 09/20/17 15:50 98.6 84 18 141/73 (95) 96 Room Air 09/20/17 11:46 98.7 79 16 120/61 (80) 92 Room Air 09/20/17 09:00 Room Air 09/20/17 08:30 98.4 77 16 115/67 (83) 94 Room Air 09/20/17 04:24 98.5 81 20 114/61 (78) 94 Room Air 09/20/17 00:25 98.2 80 20 115/61 (79) 93 Room Air 09/19/17 21:00 Room Air 09/19/17 20:01 97.8 80 20 132/65 (87) 97 Room Air I & O 09/20/17 07:00 Intake Total 2868 ml Output Total 1835 ml Balance 1033 ml Capillary Refill : Less Than 3 SecondsLess Than 3 Seconds General Appearance: No Apparent Distress, WD/WN HEENT: PERRL/EOMI Neck: Full Range of Motion, Normal Inspection, Non Tender, Supple, Carotid Bruit Respiratory: Chest Non Tender, Lungs Clear, Normal Breath Sounds, No Accessory Muscle Use, No Respiratory Distress Cardiovascular: Regular Rate, Rhythm, No Edema, No Gallop, No JVD, No Murmur, Normal Peripheral Pulses Gastrointestinal: normal bowel sounds, soft, tenderness (incisional) Extremity: Normal Capillary Refill, Normal Inspection, Normal Range of Motion, Non Tender, No Calf Tenderness, No Pedal Edema Neurologic/Psychiatric: Alert, Oriented x3, No Motor/Sensory Deficits, Normal Mood/Affect Skin: Normal Color, Warm/Dry Lymphatic: No Adenopathy Results Lab Microbiology 09/18/17 MRSA Screen - Final, Complete MRSA not isolated Assessment/Plan Assessment/Plan Assessment/Plan Incisional hernia,s/p lap incisional hernia chest pain, dizziness life vest, hypotension monitor patient okay to dc discussed discharge with patient. Patient to follow up with PCP and Cardiology and will have them start Plavix at follow up appointment. Clinical Quality Measures DVT/VTE Risk/Contraindication: Risk Factor Score Per Nursin RFS Level Per Nursing on Admit: 4+=Very High PATSY MCADAMS DO Sep 20, 2017 18:50
== END 2017-09-20 16:35 | disposition home health service (06) ==
LOC: EDUNIT# 17:05 → ER 17:06 → UNDOADMOB 18:34 → 4TH 18:34 → UNDOADMOB 19:10 → 4TH 19:10 → SDC 19:10 → 4TH 09-15 15:38 → OBSVTOIN 09-16 13:50 → INTOOBSV 09-16 13:50 → 4TH 09-20 16:35 → SDC 09-20 16:35 → UNDODISIN 09-20 16:35
PROVIDERS: ATTEND Family Medicine
DX: K43.2 Incisional hernia without obstruction or gangrene (principal); I25.810 Atherosclerosis of coronary artery bypass graft(s) without angina pectoris; I13.0 Hypertensive heart and chronic kidney disease with heart failure and stage 1 through stage 4 chronic kidney disease, or unspecified chronic kidney disease; I50.23 Acute on chronic systolic (congestive) heart failure; N18.9 Chronic kidney disease, unspecified; I42.0 Dilated cardiomyopathy; D50.0 Iron deficiency anemia secondary to blood loss (chronic); R31.9 Hematuria, unspecified; Z79.899 Other long term (current) drug therapy; R01.1 Cardiac murmur, unspecified; E78.5 Hyperlipidemia, unspecified; N40.1 Benign prostatic hyperplasia with lower urinary tract symptoms; R33.9 Retention of urine, unspecified; N31.9 Neuromuscular dysfunction of bladder, unspecified; R53.81 Other malaise; I95.1 Orthostatic hypotension; Z86.711 Personal history of pulmonary embolism; Z86.718 Personal history of other venous thrombosis and embolism; Z95.1 Presence of aortocoronary bypass graft; Z95.0 Presence of cardiac pacemaker; Z87.01 Personal history of pneumonia (recurrent)
CPT/HCPCS: 36415; 71045; 80048; 80053; 80061; 80320; 82274; 82550; 82728; 82962; 83540; 83735; 83874; 83880; 84484; 85025; 85610; 85730; 87081; 93005; 93041; 93306; 94760; 96374; G0378

== ENCOUNTER → 2017-09-15 | Outpatient (CLI) | payer MEDICARE, MEDICAID ==
[~2017-09-15] MED LIST changes: +ACHD5005 PO; +ATOR20TA66 PO; +DOCU-143 PO; +HYDROmorphone 1 MG/ML (DILAUDID) 1 ML SYRINGE IV PRN; +OMEP20CA12 PO; +ONDANSETRON 4 MG/2 ML (SDV) Z0FRAN IVP PRN; +fentaNYL INJECTION 100 MCG/2 ML AMP IVP PRN
== END ==
LOC: PREOP 05:28
PROVIDERS: ATTEND Surgery
DX: Z01.818 Encounter for other preprocedural examination (principal)

== ENCOUNTER 2017-09-24 17:47 | Observation (INO) | payer MEDICARE, MEDICAID ==
[~2017-09-24] VITALS: Ht 180.3 cm; Wt 89.1 kg
[~2017-09-24 17:47] MED LIST changes: -HYDROmorphone 1 MG/ML (DILAUDID) 1 ML SYRINGE IV PRN; -ONDANSETRON 4 MG/2 ML (SDV) Z0FRAN IVP PRN; -fentaNYL INJECTION 100 MCG/2 ML AMP IVP PRN
[2017-09-24 18:02] LABS: BASOPHILS % (AUTO) 1 % (0-10); EOSINOPHILS # (AUTO) 0.1 10^3/uL (0.0-0.3); EOSINOPHILS % (AUTO) 2 % (0-10); HEMATOCRIT 35 % (40-54); HEMOGLOBIN 11.3 G/DL (13.3-17.7); LYMPHOCYTES # (AUTO) 0.8 X 10^3 (1.0-4.0); LYMPHOCYTES % (AUTO) 14 % (12-44); MEAN CORPUSCULAR HEMOGLOBIN 24 PG (25-34); MEAN CORPUSCULAR HGB CONC 33 G/DL (32-36); MEAN CORPUSCULAR VOLUME 74 FL (80-99); MEAN PLATELET VOLUME 10.2 FL (7.4-10.4); MONOCYTES # (AUTO) 0.9 X 10^3 (0.0-1.0); MONOCYTES % (AUTO) 15 % (0-12); NEUTROPHILS # (AUTO) 4.2 X 10^3 (1.8-7.8); NEUTROPHILS % (AUTO) 69 % (42-75); PLATELET COUNT 224 10^3/uL (130-400); RED BLOOD COUNT 4.66 10^6/uL (4.35-5.85); RED CELL DISTRIBUTION WIDTH 22.6 % (10.0-14.5); WHITE BLOOD COUNT 6.1 10^3/uL (4.3-11.0)
[2017-09-24 18:08] LABS: CLARITY,URINE CLEAR; COLOR,URINE YELLOW; GLUCOSE, URINE (UA) NEGATIVE (NEGATIVE); KETONES,URINE NEGATIVE (NEGATIVE); LEUKOCYTE ESTERASE ,URINE 3+ (NEGATIVE); NITRITE,URINE NEGATIVE (NEGATIVE); PH,URINE 6 (5-9); PROTEIN,URINE 2+ (NEGATIVE); UROBILINOGEN,URINE 1 MG/DL (NORMAL)
[2017-09-24 18:20] LABS: BACTERIA,URINE TRACE /HPF; BILIRUBIN,URINE 1+ (NEGATIVE); WBC,URINE 25-50 /HPF
--- NOTE | 2017-09-24 18:21 | ED General ---
General Chief Complaint: General Problems/Pain Stated Complaint: CONSTIPATION/WEAK Nursing Triage Note: pt verbalized had surgery tuesday. has not had bm since/ Nursing Sepsis Screen: No Definite Risk Source of Information: Patient Exam Limitations: No Limitations History of Present Illness Date Seen by Provider: Sep 24, 2017 Time Seen by Provider: 18:18 Initial Comments to ER per EMS with reports of constipation and diffuse weakness. He walked from his home to the convenience store and [place] earlier today. He been feeling weak and he thought maybe this would give him some energy. While at the convenience store he became too weak to walk home so EMS was summoned. He did have a laparoscopic incisional hernia repair done here 1 week ago. He has known congestive heart failure and was found on echocardiogram during his visit last week to have ejection fraction of 30-35% so he was given a life vest. He's been wearing this faithfully and has had no discharges from it. He does see Dr. Santos. Very weak since discharge. He is been eating and drinking okay but no bowel movement for one week. he does report periumbilical abdominal pain. Timing/Duration: 1-2 Days Severity: Moderate Associated Systoms: No Chest Pain, No Cough, No Diaphoresis, No Fever/Chills, No Headaches, No Loss of Appetite, No Malaise, No Nausea/Vomiting, No Rash; Shortness of Air (cchronic and unchanged); No Syncope; Weakness Allergies and Home Medications Allergies Coded Allergies: metoprolol (Unverified Allergy, Unknown, 09/18/14) "sunburn" rivaroxaban (Unverified Allergy, Unknown, 12/18/14) VOMITING/DIARRHEA Home Medications Aspirin 81 Mg Tablet.dr, 81 MG PO DAILY Prescribed by: DEBBIE HOPPER on 09/20/17 1009 Atorvastatin Calcium 20 Mg Tablet, 20 MG PO HS Prescribed by: DEBBIE HOPPER on 09/20/17 1009 Docusate Sodium 100 Mg Capsule, 100 MG PO BID Prescribed by: PATSY MCADAMS on 09/19/17 1135 Hydrocodone Bit/Acetaminophen 1 Tab Tab, 1 TAB PO Q4H PRN Prescribed by: PATSY MCADAMS on 09/19/17 1135 Multivitamin 1 Each Tablet, 1 TAB PO DAILY, (Reported) [place] 3 Polyunsat Fatty Acids 1,000 Mg Cap, 1,000 MG PO DAILY, (Reported) Omeprazole 20 Mg Capsule.dr, 20 MG PO BID, (Reported) Patient Home Medication List Home Medication List Reviewed: Yes Review of Systems Constitutional: see HPI, weakness EENTM: see HPI Respiratory: see HPI, short of breath Cardiovascular: see HPI Genitourinary: no symptoms reported Musculoskeletal: no symptoms reported Skin: no symptoms reported Psychiatric/Neurological: No Symptoms Reported Hematologic/Lymphatic: No Symptoms Reported Past Lnalpll-Ewwzwm-Eivkur Hx Patient Social History Alcohol Beverage of Choice: Beer Drug of Choice: distant past history of marijuana use 2nd Hand Smoke Exposure: Yes (Father was a heavy smoker in his youth) Recent Foreign Travel: No Contact w/Someone Who Travel: No Recent Infectious Disease Expo: No Recent Hopitalizations: Yes (06/2017) Immunizations Up To Date Tetanus Booster (TDap): Unknown PED Vaccines UTD: Yes Date of Pneumonia Vaccine: Feb 28, 2013 Date of Influenza Vaccine: Dec 27, 2016 Seasonal Allergies Seasonal Allergies: No Past Medical History Surgeries: Yes CABG, Eye Surgery, Pacemaker, Vascular Surgery Respiratory: Yes Pneumonia, Pulmonary Embolism Currently Using CPAP: No Currently Using BIPAP: No Cardiac: Yes (CHF) Cardiomyopathy, Coronary Artery Disease, Deep Vein Thrombosis, Heart Murmur, High Cholesterol, Hypertension, Irregular Heartbeat Neurological: No Reproductive Disorders: No Sexually Transmitted Disease: No HIV/AIDS: No Genitourinary: Yes (RETENTION) Benign Prostatic Hyperpl, Prostate Problems, Renal Failure, Neurogenic Bladder, UTI-Chronic Gastrointestinal: Yes Abdominal Hernia Musculoskeletal: Yes (L hip fx, right ankle broken) Fractures Endocrine: No HEENT: Yes Cataract Loss of Vision: Denies Hearing Impairment: Denies Cancer: No Psychosocial: No Integumentary: No Blood Disorders: No (ANEMIA) Family Medical History Cancer (LINING OF ABD CAVITY, AT AGE 80) 03 MOTHER Chest pain (FATHER OF [place] AT AGE 83) 03 FATHER Congestive heart failure 03 FATHER Family history: Arthritis 03 MOTHER Family history: Cardiovascular disease 03 FATHER Heart disease 03 FATHER Hypercholesterolemia 03 FATHER 03 MOTHER Myocardial infarction 03 FATHER Prostate cancer (DIAGNOSED AT 70 OR 73 PER PT) 03 FATHER Stroke 09 SISTER Visual impairment (SISTER WEARS GLASSES ) 09 SISTER No Family History of: Abdominal aortic aneurysm Jorge's disease Alcoholism Aphasia Cancer of colon Cataract Congenital heart disease Cystic fibrosis Dementia Dysphagia Family history: Allergy Family history: Alzheimer's disease Family history: Asthma Family history: Breast disease Family history: Coronary thrombosis Family history: Diabetes mellitus Family history: Gastrointestinal disease Family history: Glaucoma Family history: Hypertension Family history: Osteoporosis Family history: Thyroid disorder Headache Hearing loss Hereditary disease History of - anemia History of - disorder History of - respiratory disease History of drug abuse Human immunodeficiency virus (HIV) seropositivity Infertile Kidney disease Malignant neoplasm of lung Parkinson's disease Psychotic disorder Seizure disorder Tuberculosis Cancer, CAD Over 55 Years Old, CVA Physical Exam Vital Signs Vital Signs - First Documented 09/24/17 18:06 Temp 98.0 Pulse 83 Resp 20 B/P (MAP) 162/99 (120) Pulse Ox 100 Capillary Refill : Less Than 3 Seconds Height, Weight, BMI Height: 5'11.00" Weight: 205lbs. 9.0oz. 92.499381sy; 27.6 BMI Method:Stated General Appearance: No Apparent Distress, WD/WN Eyes: Bilateral Eye Normal Inspection, Bilateral Eye PERRL, Bilateral Eye EOMI HEENT: PERRL/EOMI, TMs Normal Neck: Full Range of Motion, Normal Inspection Respiratory: Normal Breath Sounds, No Accessory Muscle Use, No Respiratory Distress Cardiovascular: Regular Rate, Rhythm, Normal Peripheral Pulses Gastrointestinal: Normal Bowel Sounds, Non Tender, Soft Extremity: Normal Capillary Refill, Normal Inspection, Other (chronic and unchanged swelling of bilateral lower extremities) Neurologic/Psychiatric: Alert, Oriented x3, No Motor/Sensory Deficits Skin: Normal Color, Warm/Dry, Other (abdominal incisions are clean dry and intact without drainage or erythema. There is some ecchymosis around them. There is some fluctuance beneath the midline superior abdominal incision. However, again no drainage and no erythema of the overlying skin. He reports no fevers or chills his white count is normal. Radiologist mentions that this appears to be an abscess however he just had surgery week ago and some more likely a seroma.) Progress/Results/Core Measures Suspected Sepsis Recent Fever Within 48 Hours: No Infection Criteria Present: None New/Unexplained Altered Menta: No Sepsis Screen: No Definite Risk SIRS Temperature:98.0 Pulse: 83 Respiratory Rate: 20 Laboratory Tests 09/24/17 17:55: White Blood Count 6.1 Blood Pressure 162 /99 Mean: 120 Laboratory Tests 09/24/17 17:55: Creatinine 1.38H, Platelet Count 224, Total Bilirubin 0.8 Results/Orders Lab Results Laboratory Tests Test 09/24/17 17:55 09/24/17 18:00 Range/Units White Blood Count 6.1 4.3-11.0 10^3/uL Red Blood Count 4.66 4.35-5.85 10^6/uL Hemoglobin 11.3 L 13.3-17.7 G/DL Hematocrit 35 L 40-54 % Mean Corpuscular Volume 74 L 80-99 FL Mean Corpuscular Hemoglobin 24 L 25-34 PG Mean Corpuscular Hemoglobin Concent 33 32-36 G/DL Red Cell Distribution Width 22.6 H 10.0-14.5 % Platelet Count 224 130-400 10^3/uL Mean Platelet Volume 10.2 7.4-10.4 FL Neutrophils (%) (Auto) 69 42-75 % Lymphocytes (%) (Auto) 14 12-44 % Monocytes (%) (Auto) 15 H 0-12 % Eosinophils (%) (Auto) 2 0-10 % Basophils (%) (Auto) 1 0-10 % Neutrophils # (Auto) 4.2 1.8-7.8 X 10^3 Lymphocytes # (Auto) 0.8 L 1.0-4.0 X 10^3 Monocytes # (Auto) 0.9 0.0-1.0 X 10^3 Eosinophils # (Auto) 0.1 0.0-0.3 10^3/uL Basophils # (Auto) 0.0 0.0-0.1 10^3/uL Sodium Level 136 135-145 MMOL/L Potassium Level 4.4 3.6-5.0 MMOL/L Chloride Level 102 98-107 MMOL/L Carbon Dioxide Level 22 21-32 MMOL/L Anion Gap 12 5-14 MMOL/L Blood Urea Nitrogen 24 H 7-18 MG/DL Creatinine 1.38 H 0.60-1.30 MG/DL Estimat Glomerular Filtration Rate 51 BUN/Creatinine Ratio 17 Glucose Level 126 H 70-105 MG/DL Calcium Level 10.0 8.5-10.1 MG/DL Total Bilirubin 0.8 0.1-1.0 MG/DL Aspartate Amino Transf (AST/SGOT) 18 5-34 U/L Alanine Aminotransferase (ALT/SGPT) 11 0-55 U/L Alkaline Phosphatase 77 40-136 U/L Troponin I < 0.30 <0.30 NG/ML B-Type Natriuretic Peptide 291.9 H <100.0 PG/ML Total Protein 7.3 6.4-8.2 GM/DL Albumin 4.4 3.2-4.5 GM/DL D-Dimer 14.89 H 0.00-0.49 UG/ML Urine Color YELLOW Urine Clarity CLEAR Urine pH 6 5-9 Urine Specific [place] 1.020 1.016-1.022 Urine Protein 2+ H NEGATIVE Urine Glucose (UA) NEGATIVE NEGATIVE Urine Ketones NEGATIVE NEGATIVE Urine Nitrite NEGATIVE NEGATIVE Urine Bilirubin 1+ H NEGATIVE Urine Urobilinogen 1 NORMAL MG/DL Urine Leukocyte Esterase 3+ H NEGATIVE Urine RBC (Auto) 4+ H NEGATIVE Urine RBC 5-10 H /HPF Urine WBC 25-50 H /HPF Urine Squamous Epithelial Cells NONE /HPF Urine Crystals NONE /LPF Urine Bacteria TRACE /HPF Urine Casts NONE /LPF Urine Mucus NEGATIVE /LPF Urine Culture Indicated YES My Orders Orders - PHANI VILLA APRN Cbc With Automated Diff (09/24/17 17:50) Comprehensive Metabolic Panel (09/24/17 17:50) BNP (09/24/17 17:50) Chest 1 View, Ap/Pa Only (09/24/17 17:50) Iv Heplock-Insert (Order) (09/24/17 17:50) Ua Culture If Indicated (09/24/17 17:50) Ct Abdomen/Pelvis Wo (09/24/17 17:50) Urine Culture (09/24/17 18:00) Fibrin Degradation Products (09/24/17 18:27) Troponin I (09/24/17 19:28) Na Phos/Na Biphos Enema (Fleet Enema Romulo (09/24/17 20:15) Vital Signs/I&O 09/24/17 18:06 Temp 98.0 Pulse 83 Resp 20 B/P (MAP) 162/99 (120) Pulse Ox 100 Capillary Refill : Less Than 3 Seconds Blood Pressure Mean: 120 Diagnostic Imaging Diagonstic Imaging: CT Comments NAME: JORGE ALBERTO CALDWELL JR [facility] REC#: [id number] PT STATUS: REG ER : 1945 PHYSICIAN: PHANI VILLA APRN ADMIT DATE: 09/24/17/ER Signed Date of Exam:09/24/17 CT ABDOMEN/PELVIS WO PROCEDURE: CT abdomen and pelvis without contrast. TECHNIQUE: Multiple contiguous axial images were obtained through the abdomen and pelvis without the use of intravenous contrast. INDICATION: Nausea, abdominal pain and constipation. COMPARISON: 12/29/2016. FINDINGS: Lung bases are clear. There is a stable large hiatal hernia. There has been a prior anterior abdominal wall hernia repair. There is a fluid gas collection in the subcutaneous tissues, likely an abscess. The collection is just below the midline upper skin staple line and measures approximately 85 x 25 mm. This likely represents an abscess. Solid organs of the gallbladder are otherwise unremarkable. There is no free air or free fluid. There is moderate constipation with fecal impaction. The rectum expands to approximately 9.5 cm. There is prostate enlargement. A Sandhu catheter is seen within the urinary bladder. There is diverticulosis of the sigmoid colon without diverticulitis. Osseous structures are stable. IMPRESSION: 1. Subcutaneous abscess just below the upper midline skin staple line. 2. No recurrent abdominal wall hernia. 3. Significant constipation with fecal impaction. 4. Stable hiatal hernia. 5. Prostate enlargement. Dictated by: Dictated on workstation # [id number] Dict: 09/24/17 1838 Trans: 09/24/171857 [facility] [id number] Interpreted by: MAYDA RODRIGUEZ Electronically signed by: MAYDA RODRIGUEZ 09/24/171857 Departure Communication (Admissions) Time/Spoke to Admitting Phy: 19:[address] Galloway. She's most graciously agrees to admit the patient oobservation status. She would like to ensure that he gets his Florinef so Ill write for this to be given on my order sheet. Time/Spoke to Consulting Phy: 20:[address] Santos to notify of consult since the patient is wearing a life vest and has known coronary artery disease/CHF. However this is a chronic issue and I don't know that anything needs to be done from cardiology standpoint. his elevated d-dimer is likely explained by his recent surgery. He does have a history of DVT and pulmonary embolism but he's been intolerant of anticoagulants.I did discuss the questionable abdominal wall abscess with Taqueria who did his surgery. He feels this is likely a seroma and I would agree with that. his most recent urine culture on 08/15/17 showed Citrobacter freundii with sensitivity to Levaquin, Cipro, Bactrim, meropenem, nitrofurantoin and Rocephin. I'll use a third generation cephalosporin orally to treat this UTI which seems to be chronic for him. I will do a digital disimpaction of the fecal impaction here in the emergency room. He does not feel that he can go home and take care of himself, feels that he is too weak. Impression Primary Impression: General weakness Additional Impressions: Systolic CHF Dyspnea Constipation Fecal impaction Disposition: ADMITTED INPATIENT Condition: Stable Admissions Decision to Admit Reason: Admit from ER (General) Decision to Admit/Date: Sep 24, 2017 Time/Decision to Admit Time: 19:12 Departure-Patient Inst. Referrals: [facility] (PCP/Family) Primary Care Physician PHANI VILLA APRN Sep 24, 2017 18:21
[2017-09-24 18:22] LABS: ALBUMIN 4.4 GM/DL (3.2-4.5); BILIRUBIN,TOTAL 0.8 MG/DL (0.1-1.0); CREATININE SERUM 1.38 MG/DL (0.60-1.30); POTASSIUM 4.4 MMOL/L (3.6-5.0); TOTAL PROTEIN 7.3 GM/DL (6.4-8.2)
--- NOTE | 2017-09-24 18:42 | Diagnostic Imaging Report ---
INDICATION: Weakness. COMPARISON: 09/13/17. FINDINGS: Single view of the chest demonstrates cardiac enlargement without overt pulmonary edema. There is no pneumothorax, effusion or focal infiltrate. Pacemaker is stable. Osseous structures are normal. IMPRESSION: Stable cardiac enlargement without pulmonary edema or infiltrate. Dictated by: Dictated on workstation # [id number]
--- NOTE | 2017-09-24 18:56 | Diagnostic Imaging Report ---
PROCEDURE: CT abdomen and pelvis without contrast. TECHNIQUE: Multiple contiguous axial images were obtained through the abdomen and pelvis without the use of intravenous contrast. INDICATION: Nausea, abdominal pain and constipation. COMPARISON: 12/29/2016. FINDINGS: Lung bases are clear. There is a stable large hiatal hernia. There has been a prior anterior abdominal wall hernia repair. There is a fluid gas collection in the subcutaneous tissues, likely an abscess. The collection is just below the midline upper skin staple line and measures approximately 85 x 25 mm. This likely represents an abscess. Solid organs of the gallbladder are otherwise unremarkable. There is no free air or free fluid. There is moderate constipation with fecal impaction. The rectum expands to approximately 9.5 cm. There is prostate enlargement. A Sandhu catheter is seen within the urinary bladder. There is diverticulosis of the sigmoid colon without diverticulitis. Osseous structures are stable. IMPRESSION: 1. Subcutaneous abscess just below the upper midline skin staple line. 2. No recurrent abdominal wall hernia. 3. Significant constipation with fecal impaction. 4. Stable hiatal hernia. 5. Prostate enlargement. Dictated by: Dictated on workstation # [id number]
[2017-09-24] MEDS ORDERED: FLEET ENEMA ADULT 1 EA BTL PR ONE (20:15)
[2017-09-24 21:40] VITALS: BP 107/54
[2017-09-24] MEDS ORDERED: POLYETHYLENE GLYCOL 17 GM (MIRALAX) PACK PO ONE (22:30)
[2017-09-25] VITALS: BP 119/55
[2017-09-25 04:27] VITALS: BP 114/67
[2017-09-25 08:00] VITALS: BP 105/55
[2017-09-25] MEDS ORDERED: CEFDINIR 300 MG (OMNICEF) CAP PO SCH (09:00)
[2017-09-25] MEDS ORDERED: FLUDROCORTISONE 0.1 MG (FLORINEF) TAB PO SCH (09:00)
[2017-09-25 11:37] VITALS: BP 118/74
--- NOTE | 2017-09-25 13:31 | Consultation-Cardiology ---
HPI-Cardiology Cardiology Consultation: Date of Consultation 09/25/17 Date of Admission Attending Physician Janeth Galloway DO Admitting Physician [place] [facility] Consulting Physician Gabrielle SANTOS MD HPI: Time Seen by Provider: 13:26 Chief Complaint: Weakness This is a 71-year-old gentleman with history of ischemic cardiomyopathy, CAD status post CABG, status post permanent pacemaker. He previously refused lifevest but in the last admission echocardiogram showed persistent low systolic function with an EF of 30-35 percent, and that time he agreed for lifevest for primary prevention of sudden cardiac . Patient also has history of DVT and PE and was previously on oral anticoagulation which was discontinued when he had significant urinary bleeding. Patient also previously had obstructive uropathy, acute kidney injury, chronic kidney disease. He also has history of orthostatic hypotension and was not able to tolerate beta myrna and PJ inhibitor, in fact he was started on Florinef. The patient was recently discharged after an incisional hernia operation by Dr. Meng. He presented again to the ER with complains of fatigue and weakness. The patient denies any cardiac symptoms including chest pain, shortness of breath, palpitation, near syncope or syncope. Review of Systems-Cardiology Review of Systems Constitutional: As described under HPI; No As described under HPI, No no symptoms reported, No chills, No fever, No lightheadedness; tiredness Eyes: No As described under HPI, No no symptoms reported, No blindness, No blurred vision, No contact lenses, No drainage, No decreased acuity, No foreign body sensation, No pain, No vision change Ears/Nose/Throat: No As described under HPI, No no symptoms reported, No chronic hearing loss, No ear discharge, No ear pain, No nasal drainage, No ulcerations Respiratory: No no symptoms reported; As described under HPI; No As described under HPI, No cough, No orthopnea, No shortness of breath, No SOB with excertion Cardiovascular: No no symptoms reported; As described under HPI; No As described under HPI, No chest pain, No edema, No irregular heart rate, No lightheadedness, No palpitations Gastrointestinal: No no symptoms reported, No As described under HPI, No abdomen distended, No abdominal pain, No blood streaked bowels, No constipation , No diarrhea, No nausea, No vomiting, No stool coloration changes Genitourinary: No As described under HPI, No burning, No dysuria, No discharge , No frequency, No flank pain, No hematuria, No urgency Musculoskeletal: No no symptoms reported, No As describe under HPI, No back pain, No gout, No joint pain, No joint swelling, No muscle pain, No muscle stiffness, No neck pain, No other Skin: No no symptoms reported, No As described under HPI, No change in color, No change in hair/nails, No dryness, No lesions, No lumps, No rash, No other, No skin related problems, No ulcerations, No rash on exposed areas, No ulcerations on exposed areas Psychiatric/Neurological: No anxiety, No depression, No seizure, No focal weakness, No syncope Hematologic: No bleeding abnormalities EIC-Kdwrwd-Zacmiq Hx Patient Social History Alcohol Use: Denies Use Recreational Drug Use: Yes (etoh) Drug of Choice: distant past history of marijuana use 2nd Hand Smoke Exposure: Yes (Father was a heavy smoker in his youth) Recent Foreign Travel: No Recent Infectious Disease Expo: No Hospitalization with Isolation: Denies Physical Abuse Screen: No Sexual Abuse: No Immunizations Up To Date Tetanus Booster (TDap): Unknown Date of Pneumonia Vaccine: Feb 28, 2013 Date of Influenza Vaccine: Dec 27, 2016 Past Medical History PMH As described under Assessment. Family Medical History Family History: Cancer (LINING OF ABD CAVITY, AT AGE 80) 03 MOTHER Chest pain (FATHER OF [place] AT AGE 83) 03 FATHER Congestive heart failure 03 FATHER Family history: Arthritis 03 MOTHER, Onset:60 years & older Family history: Cardiovascular disease 03 FATHER Heart disease 03 FATHER Hypercholesterolemia 03 FATHER 03 MOTHER Myocardial infarction 03 FATHER Prostate cancer (DIAGNOSED AT 72 OR 73 PER PT) 03 FATHER Stroke 09 SISTER Visual impairment (SISTER WEARS GLASSES ) 09 SISTER No Family History of: Abdominal aortic aneurysm Jorge's disease Alcoholism Aphasia Cancer of colon Cataract Congenital heart disease Cystic fibrosis Dementia Dysphagia Family history: Allergy Family history: Alzheimer's disease Family history: Asthma Family history: Breast disease Family history: Coronary thrombosis Family history: Diabetes mellitus Family history: Gastrointestinal disease Family history: Glaucoma Family history: Hypertension Family history: Osteoporosis Family history: Thyroid disorder Headache Hearing loss Hereditary disease History of - anemia History of - disorder History of - respiratory disease History of drug abuse Human immunodeficiency virus (HIV) seropositivity Infertile Kidney disease Malignant neoplasm of lung Parkinson's disease Psychotic disorder Seizure disorder Tuberculosis Allergies and Home Medications Allergies Coded Allergies: metoprolol (Unverified Allergy, Unknown, 09/18/14) "sunburn" rivaroxaban (Unverified Allergy, Unknown, 12/18/14) VOMITING/DIARRHEA Home Medications Aspirin 81 Mg Tablet.dr, 81 MG PO DAILY Prescribed by: DEBBIE HOPPER on 09/20/17 1009 Atorvastatin Calcium 20 Mg Tablet, 20 MG PO HS Prescribed by: DEBBIE HOPPER on 09/20/17 1009 Multivitamin 1 Each Tablet, 1 TAB PO DAILY, (Reported) [place] 3 Polyunsat Fatty Acids 1,000 Mg Cap, 1,000 MG PO DAILY, (Reported) Omeprazole 20 Mg Capsule.dr, 20 MG PO BID, (Reported) Patient Home Medication List Home Medication List Reviewed: Yes Physical Exam-Cardiology Physical Exam Vital Signs/I&O 09/25/17 09/25/17 09/25/17 09/25/17 04:27 07:00 08:00 11:37 Temp 99.5 99.3 99.1 Pulse 84 79 87 82 Resp 18 20 20 B/P (MAP) 114/67 (83) 105/55 (72) 118/74 (89) Pulse Ox 94 97 99 O2 Delivery Room Air Room Air Room Air Capillary Refill : Less Than 3 Seconds Constitutional: appears stated age, AAO x 3; No apparent distress; well- developed, well-nourished HEENT: PERRL; No normal ENT inspection, No TMs normal, No pharynx normal, No scleral icterus (R), No scleral icterus (L), No pale conjunctivae (R), No pale conjunctivae (L), No photophobia, No TM abnormal (R), No TM abnormal (L), No pharyngeal erythema, No tonsillar exudate, No other, No discharge, No EOMI; hearing is well preserved; No hard of hearing; oral hygience is good; No ulceration, No xanthelasmas are seen Neck: No non-tender, No full range of motion, No supple, No normal inspection, No carotid bruit, No limited range of motion, No lymphadenopathy (R), No lymphadenopathy (L), No tender lateral, No tender midline, No thyromegaly, No other; carotid pulses are 2 + bilaterally; No with good upstrokes Respiratory: chest is bilaterally symmetric, lungs clear to auscultation Cardiovascular: regular rate-rhythm; No irregularly irregular, No extra beats, No parasternal heave is noted, No JVD, No edema, No bradycardia, No tachycardia , No point of maximal impulse, No cardiac thrills are palpable; S1 and S2; No gallop/S3, No gallop/S4, No diastolic murmur, No systolic murmur, No friction rub, No click, No other Gastrointestinal: No tender, No soft, No round, No distended, No pulsatile mass , No organomegaly, No guarding, No rebound, No tenderness, No hernia, No mass, No audible bowel sounds, No abnormal bowel sounds, No abdominal bruits, No spleenomegaly, No other Rectal: deferred Extremities: No normal range of motion, No non-tender, No normal inspection, No pedal edema, No calf tenderness, No normal capillary refill, No pelvis stable , No calf tenderness, No inflammation, No pedal edema, No slow capillary refill , No swelling, No other, No abrasion, No clubbing, No cyanosis, No ecchymosis, No laceration, No no lower extremity edema bilateral, No significant edema, No tenderness, No wound Neurologic/Psychiatric: no motor/sensory deficits, alert, normal mood/affect, oriented x 3, power is 5/5 both on sides Skin: No normal color, No warm/dry, No cyanosis, No cool, No diaphoresis, No damp, No ecchymosis, No jaundice, No mottled, No pallor, No rash, No tattoos/ piercings, No ulcerations, No rash on exposed areas, No ulcerations on exposed areas, No other Data Review Labs Laboratory Tests 09/24/17 17:55: White Blood Count 6.1, Red Blood Count 4.66, Hemoglobin 11.3L, Hematocrit 35L, Mean Corpuscular Volume 74L, Mean Corpuscular Hemoglobin 24L, Mean Corpuscular Hemoglobin Concent 33, Red Cell Distribution Width 22.6H, Platelet Count 224, Mean Platelet Volume 10.2, Neutrophils (%) (Auto) 69, Lymphocytes (%) (Auto) 14 , Monocytes (%) (Auto) 15H, Eosinophils (%) (Auto) 2, Basophils (%) (Auto) 1, Neutrophils # (Auto) 4.2, Lymphocytes # (Auto) 0.8L, Monocytes # (Auto) 0.9, Eosinophils # (Auto) 0.1, Basophils # (Auto) 0.0, Sodium Level 136, Potassium Level 4.4, Chloride Level 102, Carbon Dioxide Level 22, Anion Gap 12, Blood Urea Nitrogen 24H, Creatinine 1.38H, Estimat Glomerular Filtration Rate 51, BUN/ Creatinine Ratio 17, Glucose Level 126H, Calcium Level 10.0, Total Bilirubin 0.8 , Aspartate Amino Transf (AST/SGOT) 18, Alanine Aminotransferase (ALT/SGPT) 11, Alkaline Phosphatase 77, Troponin I < 0.30, B-Type Natriuretic Peptide 291.9H, Total Protein 7.3, Albumin 4.4 09/24/17 18:00: D-Dimer 14.89H, Urine Color YELLOW, Urine Clarity CLEAR, Urine pH 6, Urine Specific [place] 1.020, Urine Protein 2+H, Urine Glucose (UA) NEGATIVE, Urine Ketones NEGATIVE, Urine Nitrite NEGATIVE, Urine Bilirubin 1+H, Urine Urobilinogen 1, Urine Leukocyte Esterase 3+H, Urine RBC (Auto) 4+H, Urine RBC 5- 10H, Urine WBC 25-50H, Urine Squamous Epithelial Cells NONE, Urine Crystals NONE , Urine Bacteria TRACE, Urine Casts NONE, Urine Mucus NEGATIVE, Urine Culture Indicated YES A/P-Cardiology Assessment/Admission Diagnosis Fatigue/weakness, UTI sepsis, Chronic kidney disease, Microcytic anemia, CAD/CABG, Ischemic cardiomyopathy, Permanent pacemaker, LifeVest, History of DVT/PE Plan Fatigue/weakness, no clear etiology. Could be secondary to anemia and UTI sepsis. UTI sepsis, on antibiotics. History of obstructive uropathy. Chronic kidney disease, should follow with nephrology as an outpatient. Microcytic anemia, stable. Likely iron deficiency anemia due to previous bleeding. Defer to primary team if iron supplementation is required. CAD/CABG, continue aspirin and atorvastatin. Patient did not tolerate the tub blockers and Pj inhibitors previously due to significant orthostatic hypotension. Ischemic cardiomyopathy, mild elevation in BNP. Euvolemic on examination. Keep input and output equal to or a little bit negative. Permanent pacemaker, device interrogation one week ago which was within normal limits. LifeVest, for primary prevention of sudden cardiac . Likely ICD upgrade in the near future if no significant improvement in LVEF. History of DVT/PE, was previously on oral anticoagulation however that was held due to significant urinary bleeding and microcytic anemia. Thank you for your consultation. Please call me if you have any questions. Jordyn Santos MD, FACP, FACC, FSCAI, FHRS, CCDS Interventional Cardiology Cardiac Electrophysiology Vascular Medicine and Endovascular Interventions Clinical Quality Measures DVT/VTE Risk/Contraindication: Risk Factor Score Per Nursin RFS Level Per Nursing on Admit: 4+=Very High Gabrielle SANTOS MD Sep 25, 2017 1:31 pm
--- NOTE | 2017-09-25 14:27 | Short Stay Summary ---
History of Present Illness History of Present Illness Reason for visit/HPI Patient presented to ED via EMS yesterday afternoon with complaint of constipation and significant weakness. The patient had a laparoscopic incisional hernia repair done 1 week ago, where he had a 5 vessel CABG in July 2016. Patient had been very fatigued since discharge and yesterday was feeling better, so he thought that "getting out and about" would help, and he tried to walk from home to the convenience store about 3/10ths a mile away to get a drink. By the time he got to the convenience store he was incredibly weak, and called EMS who brought him to the ED. He has known CHF, and was found to have an EF of 30-35% last week, and is currently wearing a lifevest. He was found to have significant stool load on imaging and exam. He had some periumbilical abdominal pain; he has been eating and drinking okay. Attempts were made to place him in a prison at discharge several days ago, but this was declined by his insurance company. He was set up with home health, including PT and OT, but they have not been out to see him yet. Date of Admission Sep 24, 2017 at 19:30 Date of Discharge 09/25/17 Time Seen by Provider: 13:40 Attending Physician Janeth Galloway DO Admitting Physician [place] Consult Dr. Santos, Cardiology Allergies and Home Medications Allergies Coded Allergies: metoprolol (Unverified Allergy, Unknown, 09/18/14) "sunburn" rivaroxaban (Unverified Allergy, Unknown, 12/18/14) VOMITING/DIARRHEA Home Medications Aspirin 81 Mg Tablet., 81 MG PO DAILY Prescribed by: DEBBIE HOPPER on 09/20/17 1009 Atorvastatin Calcium 20 Mg Tablet, 20 MG PO HS Prescribed by: DEBBIE HOPPER on 09/20/17 1009 Multivitamin 1 Each Tablet, 1 TAB PO DAILY, (Reported) [place] 3 Polyunsat Fatty Acids 1,000 Mg Cap, 1,000 MG PO DAILY, (Reported) Omeprazole 20 Mg Capsule., 20 MG PO BID, (Reported) Patient Home Medication List Home Medication List Reviewed: Yes Past Knlsvwd-Cnpvvj-Iyszqx Hx Patient Social History Marrital Status: single Living Status: lives alone in [place], [place] Employed/Student: retired Alcohol Use: Denies Use Number of Drinks Today: AA Alcohol Beverage of Choice: Beer Recreational Drug Use: No Drug of Choice: distant past history of marijuana use Smoking Status: Never a Smoker 2nd Hand Smoke Exposure: Yes (Father was a heavy smoker in his youth) Physical Abuse Screen: No Sexual Abuse: No Recent Foreign Travel: No Contact w/other who traveled: No Recent Hopitalizations: Yes (June 2017) Recent Infectious Disease Expo: No Immunizations Up To Date Tetanus Booster (TDap): Unknown Pediatric: Yes Date of Pneumonia Vaccine: Feb 28, 2013 Date of Influenza Vaccine: Dec 27, 2016 Seasonal Allergies Seasonal Allergies: No Surgeries Yes (colonoscopy, EGD) Abdominal (laparoscopic incisional hernia repair - August 2017), CABG (5 vessel, [address] Fraser at [facility] in [place]), Eye Surgery, Pacemaker, Vascular Surgery Respiratory Yes Pulmonary Embolism Currently Using CPAP: No Currently Using BIPAP: No Cardiovascular Yes Atrial Fibrillation, Cardiomyopathy (Dilated Cardiomyopathy, EF 30-35% August 2017 ), Coronary Artery Disease (Severe Multivessel Disease), Deep Vein Thrombosis, Heart Murmur, High Cholesterol, Hypertension, Irregular Heartbeat Neurological No Reproductive System Hx Reproductive Disorders: No Sexually Transmitted Disease: No HIV/AIDS: No Genitourinary Yes (chronic solo) Benign Prostatic Hyperpl, Kidney Infection, Bladder Infection, Neurogenic Bladder Gastrointestinal Yes Chronic Constipation Musculoskeletal Yes (L hip fx, right ankle broken) Fractures Endocrine History of Endocrine Disorders: No HEENT History of HEENT Disorders: Yes HEENT Disorders: Cataract Loss of Vision: Denies Hearing Impairment: Denies Cancer No Psychosocial History of Psychiatric Problem: No Integumentary History of Skin or Integumenta: No Blood Transfusions History of Blood Disorders: Yes Hx of Blood Transfusion July 2017 Adverse Reaction to a Blood Tr: No Reviewed Nursing Assessment Reviewed/Agree w Nursing PMH: Yes Family Medical History Significant Family History: Cancer, CAD Over 55 Years Old, CVA Family Hx: Cancer (LINING OF ABD CAVITY, AT AGE 80) 03 MOTHER Chest pain (FATHER OF [place] AT AGE 83) 03 FATHER Congestive heart failure 03 FATHER Family history: Arthritis 03 MOTHER, Onset:60 years & older Family history: Cardiovascular disease 03 FATHER Heart disease 03 FATHER Hypercholesterolemia 03 FATHER 03 MOTHER Myocardial infarction 03 FATHER Prostate cancer (DIAGNOSED AT 70 OR 71 PER PT) 03 FATHER Stroke 09 SISTER Visual impairment (SISTER WEARS GLASSES ) 09 SISTER No Family History of: Abdominal aortic aneurysm Coleman's disease Alcoholism Aphasia Cancer of colon Cataract Congenital heart disease Cystic fibrosis Dementia Dysphagia Family history: Allergy Family history: Alzheimer's disease Family history: Asthma Family history: Breast disease Family history: Coronary thrombosis Family history: Diabetes mellitus Family history: Gastrointestinal disease Family history: Glaucoma Family history: Hypertension Family history: Osteoporosis Family history: Thyroid disorder Headache Hearing loss Hereditary disease History of - anemia History of - disorder History of - respiratory disease History of drug abuse Human immunodeficiency virus (HIV) seropositivity Infertile Kidney disease Malignant neoplasm of lung Parkinson's disease Psychotic disorder Seizure disorder Tuberculosis Constitutional: see HPI EENTM: no symptoms reported Respiratory: no symptoms reported Cardiovascular: no symptoms reported, Hx of Intervention Gastrointestinal: see HPI, constipation Genitourinary: no symptoms reported Musculoskeletal: see HPI Skin: no symptoms reported Psychiatric/Neurological: See HPI, Weakness Physical Exam Vital Signs Vital Signs - First Documented 09/24/17 09/24/17 18:06 21:20 Temp 98.0 Pulse 83 Resp 20 B/P (MAP) 162/99 (120) Pulse Ox 100 O2 Delivery Room Air Capillary Refill : Less Than 3 Seconds Height, Weight, BMI Height: 5'11.00" Weight: 196lbs. 6.0oz. [id number]; 27.6 BMI Method:Stated General Appearance: No Apparent Distress, WD/WN Eyes: Bilateral Eye Normal Inspection, Bilateral Eye EOMI HEENT: Normal ENT Inspection, Moist Mucous Membranes; No Photophobia, No Scleral Icterus (L), No Scleral Icterus (R) Neck: Full Range of Motion, Normal Inspection, Non Tender, Supple Respiratory: Chest Non Tender, Lungs Clear, Normal Breath Sounds, No Accessory Muscle Use, No Respiratory Distress Cardiovascular: No Edema, No Gallop, No JVD, Normal Peripheral Pulses, Systolic Murmur, Irregularly Irregular Gastrointestinal: Normal Bowel Sounds, No Organomegaly, No Pulsatile Mass, Non Tender, Soft; No Distended, No Guarding Rectal: Deferred Extremity: Normal Capillary Refill, Normal Inspection, Normal Range of Motion, Non Tender, No Calf Tenderness, No Pedal Edema Neurologic/Psychiatric: Alert, Oriented x3, No Motor/Sensory Deficits, Normal Mood/Affect, television host II-XII Norm as Tested Skin: Normal Color, Warm/Dry Clinical Quality Measures DVT/VTE Risk/Contraindication: Risk Factor Score Per Nursin RFS Level Per Nursing on Admit: 4+=Very High Short Stay Diagnosis Discharge Diagnosis-Short Stay Admission Diagnosis: Weakness Constipation Dilated Cardiomyopathy Lifevest CAD Renal Insufficiency BPH Neurogenic Bladder Personal Hx of Pulmonary Embolism Personal Hx of Deep Vein Thrombosis Final Discharge Diagnosis: Weakness Constipation Dilated Cardiomyopathy Lifevest CAD Renal Insufficiency BPH Neurogenic Bladder Personal Hx of Pulmonary Embolism Personal Hx of Deep Vein Thrombosis Conclusion Labs Laboratory Tests 09/24/17 17:55: White Blood Count 6.1, Red Blood Count 4.66, Hemoglobin 11.3L, Hematocrit 35L, Mean Corpuscular Volume 74L, Mean Corpuscular Hemoglobin 24L, Mean Corpuscular Hemoglobin Concent 33, Red Cell Distribution Width 22.6H, Platelet Count 224, Mean Platelet Volume 10.2, Neutrophils (%) (Auto) 69, Lymphocytes (%) (Auto) 14 , Monocytes (%) (Auto) 15H, Eosinophils (%) (Auto) 2, Basophils (%) (Auto) 1, Neutrophils # (Auto) 4.2, Lymphocytes # (Auto) 0.8L, Monocytes # (Auto) 0.9, Eosinophils # (Auto) 0.1, Basophils # (Auto) 0.0, Sodium Level 136, Potassium Level 4.4, Chloride Level 102, Carbon Dioxide Level 22, Anion Gap 12, Blood Urea Nitrogen 24H, Creatinine 1.38H, Estimat Glomerular Filtration Rate 51, BUN/ Creatinine Ratio 17, Glucose Level 126H, Calcium Level 10.0, Total Bilirubin 0.8 , Aspartate Amino Transf (AST/SGOT) 18, Alanine Aminotransferase (ALT/SGPT) 11, Alkaline Phosphatase 77, Troponin I < 0.30, B-Type Natriuretic Peptide 291.9H, Total Protein 7.3, Albumin 4.4 09/24/17 18:00: D-Dimer 14.89H, Urine Color YELLOW, Urine Clarity CLEAR, Urine pH 6, Urine Specific [place] 1.020, Urine Protein 2+H, Urine Glucose (UA) NEGATIVE, Urine Ketones NEGATIVE, Urine Nitrite NEGATIVE, Urine Bilirubin 1+H, Urine Urobilinogen 1, Urine Leukocyte Esterase 3+H, Urine RBC (Auto) 4+H, Urine RBC 5- 10H, Urine WBC 25-50H, Urine Squamous Epithelial Cells NONE, Urine Crystals NONE , Urine Bacteria TRACE, Urine Casts NONE, Urine Mucus NEGATIVE, Urine Culture Indicated YES Conclusion/Plan Patient's constipation was relieved and at the time of exam he is feeling much better. Discussed with patient that he needed to be careful with his activity, as he was just hospitalized for nearly a week, and it takes time for him to recover. Patient also was previously on Florinef for hypotension, which was started after he had multiple hospitalizations for weakness and orthostatic hypotension. He was on this medication when admitted on 05/18/17, patient states that when he was discharged from [facility] on 05/26 he was told to stop all of his medications. That hospitalization was for hematuria, which led to shock and profound hypotension and blood loss. Discharge records from [facility] were obtained via the clinic system, and the discharge instructions clearly state that the patient was NOT supposed to be off all of his medications. In addition to the medications the patient is currently taking, he was supposed to be taking: Florinef 0.1 mg daily, midodrine 5 mg TID, and amiodarone 400 mg BID. The medications the patient was supposed to stop were his blood thinners, until he followed up with urology two weeks after discharge, at which point they would discuss further whether to continue to hold or restart his anticoagulation. Given that patient has been off of his Florinef for nearly four months, and seems to have been doing relatively well other than his current observation stay for weakness; and that he never too the midodrine or the amiodarone at all , we will not have the patient start these medications at this time. He has follow up appointments scheduled with Dr. Santos on 10/05, and it is my opinion that it would be best for the decision regarding these medications to be made by cardiology, as the patient is no longer seeing Dr. Fraser and will be seeing Dr. Santos. Patient also has follow up appointments scheduled with Leonardo Madden APRN on 10/[address] Meng on 10/05. Copy Copies To 1: [facility] [place] Copies To 2: Gabrielle SANTOS MD, MARGARET E DO Sep 25, 2017 14:26
--- NOTE | 2017-09-25 14:31 | Discharge Instructions ---
Discharge [email or web address] Discharge Medications New, Converted or Re-Newed RX: Other (no medication changes) Patient Instructions Patient Instructions -take medications as prescribed at previous discharge -keep follow up appointments as previously scheduled -call clinic with any questions or concerns Goal/Follow Up Appt: Leonardo Madden APRN 10/04/17 Dr. Santos 10/05/17 Return to The Hospital For: chest pain or pressure, shortness of breath unrelieved by rest, nausea or vomiting that makes you unable to keep down clear liquids and lasts more than 24 hours, temp >101 that does not decrease with tylenol or ibuprofen and lasts longer than 2-3 days in a row, severe pain not controlled by routine measures and prescribed medications, if directed by enterprise applications manager provider, or with any other emergent complaints or concerns Activity & Diet Discharge Diet: Low Sodium Diet Activity as Tolerated: Yes Copy Copies To 1: [facility]/JIM BALLESTEROS DO Sep 25, 2017 14:31
[2017-09-25 15:12] VITALS: BP 118/74
[2017-09-25] MEDS ORDERED: PANTOPRAZOLE 20 MG TABLET (PROTONIX) PO SCH (21:00)
[2017-09-25] MEDS ORDERED: ATORVASTATIN 20 MG (LIPITOR) TABLET PO SCH (21:00)
[2017-09-26] MEDS ORDERED: MULTIVIT W/MINERALS TAB (THERAGRAN M) PO SCH (07:00)
[2017-09-26] MEDS ORDERED: OMEGA 3 (FISH OIL) 1000 MG CAP PO SCH (09:00)
[2017-09-26] MEDS ORDERED: ASPIRIN E.C. 81 MG (ECOTRIN) TAB PO SCH (09:00)
== END 2017-09-25 14:25 | disposition home or self-care (01) ==
LOC: EDUNIT# 17:47 → ER 17:48 → 4TH 19:30 → UNDOADMOB 19:30 → 4TH 22:38 → UNDODISOB 09-25 15:12
PROVIDERS: ADMIT Family Medicine; ATTEND Family Medicine
DX: R53.1 Weakness (principal); K59.00 Constipation, unspecified; I42.0 Dilated cardiomyopathy; I25.10 Atherosclerotic heart disease of native coronary artery without angina pectoris; N28.9 Disorder of kidney and ureter, unspecified; N40.1 Benign prostatic hyperplasia with lower urinary tract symptoms; I11.0 Hypertensive heart disease with heart failure; N31.9 Neuromuscular dysfunction of bladder, unspecified; I50.20 Unspecified systolic (congestive) heart failure; D50.9 Iron deficiency anemia, unspecified; E78.00 Pure hypercholesterolemia, unspecified; Z86.711 Personal history of pulmonary embolism; Z86.718 Personal history of other venous thrombosis and embolism; Z95.0 Presence of cardiac pacemaker; Z95.1 Presence of aortocoronary bypass graft
CPT/HCPCS: 36415; 71045; 74176; 80053; 81000; 83880; 84484; 85025; 85379; 87077; 87088; 87186; G0378

== ENCOUNTER → 2018-01-16 | Outpatient (CLI) | payer MEDICARE, MEDICAID ==
[~2018-01-16] MED LIST changes: -LOSA25TA21 PO; +LOSA25TA6 PO
== END ==
LOC: CARD 11:13
PROVIDERS: ATTEND Internal Medicine Interventional Cardiology
DX: I25.10 Atherosclerotic heart disease of native coronary artery without angina pectoris (principal); N18.9 Chronic kidney disease, unspecified; I42.9 Cardiomyopathy, unspecified; Z95.0 Presence of cardiac pacemaker
CPT/HCPCS: 93306

== ENCOUNTER 2018-03-08 11:10 | Emergency (ER) | payer MEDICAID, MEDICARE ==
[~2018-03-08] VITALS: Ht 177.8 cm; Wt 90.3 kg
[2018-03-08 13:27] LABS: BILIRUBIN,URINE NEGATIVE (NEGATIVE); CLARITY,URINE BLOODY; COLOR,URINE RED; GLUCOSE, URINE (UA) NEGATIVE (NEGATIVE); KETONES,URINE 1+ (NEGATIVE); LEUKOCYTE ESTERASE ,URINE 3+ (NEGATIVE); NITRITE,URINE NEGATIVE (NEGATIVE); PH,URINE 5 (5-9); PROTEIN,URINE 4+ (NEGATIVE); UROBILINOGEN,URINE NORMAL (NORMAL)
[2018-03-08 13:30] LABS: BACTERIA,URINE TRACE /HPF; RBC,URINE >100 /HPF; WBC,URINE 25-50 /HPF
[2018-03-08] MEDS ORDERED: LEVO500T2 PO (14:11)
--- NOTE | 2018-03-08 14:13 | ED GU-Male ---
General Chief Complaint: Catheter/Drain/Tube Problems Stated Complaint: CATHETER ISSUES Nursing Triage Note: pt states he needs his urinary catheter changed. states this one has been in a while. Source: patient Exam Limitations: no limitations Allergies and Home Medications Allergies Coded Allergies: metoprolol (Unverified Allergy, Unknown, 09/18/14) "sunburn" rivaroxaban (Unverified Allergy, Unknown, 12/18/14) VOMITING/DIARRHEA Home Medications Aspirin 81 Mg Tablet.dr, 81 MG PO DAILY Prescribed by: DEBBIE HOPPER on 09/20/17 1009 Atorvastatin Calcium 20 Mg Tablet, 20 MG PO HS Prescribed by: DEBBIE HOPPER on 09/20/17 1009 Multivitamin 1 Each Tablet, 1 TAB PO DAILY, (Reported) [place] 3 Polyunsat Fatty Acids 1,000 Mg Cap, 1,000 MG PO DAILY, (Reported) Omeprazole 20 Mg Capsule.dr, 20 MG PO BID, (Reported) Past Ayajtia-Uxbjsz-Jayhup Hx Patient Social History Alcohol Use: Past History Number of Drinks Today: AA Alcohol Beverage of Choice: Beer Recreational Drug Use: Yes (etoh) Drug of Choice: distant past history of marijuana use Smoking Status: Never a Smoker 2nd Hand Smoke Exposure: Yes (Father was a heavy smoker in his youth) Recent Foreign Travel: No Contact w/Someone Who Travel: No Recent Infectious Disease Expo: No Recent Hopitalizations: No Immunizations Up To Date Tetanus Booster (TDap): Unknown PED Vaccines UTD: Yes Date of Pneumonia Vaccine: Feb 28, 2013 Date of Influenza Vaccine: Dec 27, 2016 Seasonal Allergies Seasonal Allergies: No Past Medical History Surgeries: Yes (colonoscopy, EGD) Abdominal, CABG, Eye Surgery, Pacemaker, Vascular Surgery Respiratory: Yes Pneumonia, Pulmonary Embolism Currently Using CPAP: No Currently Using BIPAP: No Cardiac: Yes Atrial Fibrillation, Cardiomyopathy, Coronary Artery Disease, Deep Vein Thrombosis, Heart Murmur, High Cholesterol, Hypertension, Irregular Heartbeat Neurological: No Reproductive Disorders: No Sexually Transmitted Disease: No HIV/AIDS: No Genitourinary: Yes (chronic solo) Benign Prostatic Hyperpl, Kidney Infection, Bladder Infection, Neurogenic Bladder Gastrointestinal: Yes Chronic Constipation Musculoskeletal: Yes (L hip fx, right ankle broken) Fractures Endocrine: No HEENT: Yes Cataract Loss of Vision: Denies Hearing Impairment: Denies Cancer: No Psychosocial: No Integumentary: No Blood Disorders: Yes Adverse Reaction/Blood Tranf: No Family Medical History Cancer (LINING OF ABD CAVITY, AT AGE 80) 03 MOTHER Chest pain (FATHER OF [place] AT AGE 83) 03 FATHER Congestive heart failure 03 FATHER Family history: Arthritis 03 MOTHER, Onset:60 years & older Family history: Cardiovascular disease 03 FATHER Heart disease 03 FATHER Hypercholesterolemia 03 FATHER 03 MOTHER Myocardial infarction 03 FATHER Prostate cancer (DIAGNOSED AT 70 OR 73 PER PT) 03 FATHER Stroke 09 SISTER Visual impairment (SISTER WEARS GLASSES ) 09 SISTER No Family History of: Abdominal aortic aneurysm Trumbull's disease Alcoholism Aphasia Cancer of colon Cataract Congenital heart disease Cystic fibrosis Dementia Dysphagia Family history: Allergy Family history: Alzheimer's disease Family history: Asthma Family history: Breast disease Family history: Coronary thrombosis Family history: Diabetes mellitus Family history: Gastrointestinal disease Family history: Glaucoma Family history: Hypertension Family history: Osteoporosis Family history: Thyroid disorder Headache Hearing loss Hereditary disease History of - anemia History of - disorder History of - respiratory disease History of drug abuse Human immunodeficiency virus (HIV) seropositivity Infertile Kidney disease Malignant neoplasm of lung Parkinson's disease Psychotic disorder Seizure disorder Tuberculosis Cancer, CAD Over 55 Years Old, CVA Physical Exam Vital Signs Vital Signs - First Documented 03/08/18 11:20 Temp 97.0 Pulse 73 Resp 20 B/P (MAP) 144/94 (111) Pulse Ox 98 O2 Delivery Room Air Capillary Refill : Less Than 3 Seconds Height, Weight, BMI Height: 5'10.00" Weight: 199lbs. 6.0oz. 90.323933vb; 27.6 BMI Method:Stated Progress/Results/Core Measures Suspected Sepsis Recent Fever Within 48 Hours: No Infection Criteria Present: None New/Unexplained Altered Menta: No Sepsis Screen: No Definite Risk SIRS Temperature:97.0 Pulse: 73 Respiratory Rate: 20 Blood Pressure 144 /94 Mean: 111 Results/Orders Lab Results Laboratory Tests Test 03/08/18 13:03 Range/Units Urine Color RED H Urine Clarity BLOODY H Urine pH 5 5-9 Urine Specific [place] 1.015 L 1.016-1.022 Urine Protein 4+ NEGATIVE Urine Glucose (UA) NEGATIVE NEGATIVE Urine Ketones 1+ H NEGATIVE Urine Nitrite NEGATIVE NEGATIVE Urine Bilirubin NEGATIVE NEGATIVE Urine Urobilinogen NORMAL NORMAL MG/DL Urine Leukocyte Esterase 3+ H NEGATIVE Urine RBC (Auto) 5+ H NEGATIVE Urine RBC >100 H /HPF Urine WBC 25-50 H /HPF Urine Crystals NONE /LPF Urine Bacteria TRACE /HPF Urine Casts NONE /LPF Urine Mucus NEGATIVE /LPF Urine Culture Indicated YES My Orders Orders - PIEDAD RILEY MD Ua Culture If Indicated (03/08/18 13:19) Urine Culture (03/08/18 13:03) Vital Signs/I&O 03/08/18 11:20 Temp 97.0 Pulse 73 Resp 20 B/P (MAP) 144/94 (111) Pulse Ox 98 O2 Delivery Room Air Capillary Refill : Less Than 3 Seconds Blood Pressure Mean: 111 Departure Impression Primary Impression: Neurogenic bladder Additional Impression: Urinary tract infection Qualified Codes: N39.0 - Urinary tract infection, site not specified; R31.9 - Hematuria, unspecified Disposition: 01 HOME, SELF-CARE Condition: Against Medical Advice Departure-Patient Inst. Decision time for Depature: 14:09 Referrals: [facility] (PCP/Family) Primary Care Physician Patient Instructions: How to Catheterize Yourself, Male, How to Prevent Catheter Associated Urinary Tract Infections Add. Discharge Instructions: Drink plenty of clear liquids to flush out your urinary tract. Self catheterize often, ideally every 4 hours or more often if needed. Please ensure you're using sterile technique when catheterizing. Follow-up with your primary care provider as soon as possible. Complete your antibiotic as prescribed. Return to care if you're having any problems or complications. All discharge instructions reviewed with patient and/or family. Voiced understanding. Scripts Levofloxacin (Levaquin) 500 Mg Tablet 500 MG PO DAILY, #5 TAB Prov: PIEDAD RILEY MD 03/08/18 PIEDAD RILEY MD Mar 08, 2018 14:13
[2018-03-08 14:24] VITALS: BP 144/94
== END 2018-03-08 14:24 | disposition home or self-care (01) ==
LOC: EDUNIT# 11:10 → ER 11:11
DX: N31.9 Neuromuscular dysfunction of bladder, unspecified (principal); N39.0 Urinary tract infection, site not specified; I48.91 Unspecified atrial fibrillation; I42.9 Cardiomyopathy, unspecified; E78.00 Pure hypercholesterolemia, unspecified; I10 Essential (primary) hypertension; I25.10 Atherosclerotic heart disease of native coronary artery without angina pectoris; Z88.8 Allergy status to other drugs, medicaments and biological substances; Z87.19 Personal history of other diseases of the digestive system; Z79.82 Long term (current) use of aspirin; Z86.718 Personal history of other venous thrombosis and embolism; Z87.448 Personal history of other diseases of urinary system; Z80.1 Family history of malignant neoplasm of trachea, bronchus and lung; Z82.49 Family history of ischemic heart disease and other diseases of the circulatory system; Z80.42 Family history of malignant neoplasm of prostate; Z77.22 Contact with and (suspected) exposure to environmental tobacco smoke (acute) (chronic); Z95.1 Presence of aortocoronary bypass graft; Z90.711 Acquired absence of uterus with remaining cervical stump; Z98.890 Other specified postprocedural states; Z95.0 Presence of cardiac pacemaker; Z87.01 Personal history of pneumonia (recurrent); Z96.0 Presence of urogenital implants
CPT/HCPCS: 81000; 87077; 87088; 99282

== ENCOUNTER 2018-03-12 12:41 | Emergency (ER) | payer MEDICARE ==
[~2018-03-12] VITALS: Ht 180.3 cm; Wt 90.3 kg
[2018-03-12] MEDS ORDERED: ASPIRIN 81 MG CHEW (CHILDREN'S ASA) PO ONE (13:00)
[2018-03-12 13:01] LABS: BASOPHILS % (AUTO) 0 % (0-10); EOSINOPHILS # (AUTO) 0.1 10^3/uL (0.0-0.3); EOSINOPHILS % (AUTO) 1 % (0-10); HEMATOCRIT 41 % (40-54); HEMOGLOBIN 13.1 G/DL (13.3-17.7); LYMPHOCYTES # (AUTO) 1.1 X 10^3 (1.0-4.0); LYMPHOCYTES % (AUTO) 13 % (12-44); MEAN CORPUSCULAR HEMOGLOBIN 26 PG (25-34); MEAN CORPUSCULAR HGB CONC 32 G/DL (32-36); MEAN CORPUSCULAR VOLUME 79 FL (80-99); MEAN PLATELET VOLUME 10.7 FL (7.4-10.4); MONOCYTES % (AUTO) 11 % (0-12); NEUTROPHILS # (AUTO) 6.3 X 10^3 (1.8-7.8); NEUTROPHILS % (AUTO) 74 % (42-75); PLATELET COUNT 205 10^3/uL (130-400); RED CELL DISTRIBUTION WIDTH 17.3 % (10.0-14.5); WHITE BLOOD COUNT 8.5 10^3/uL (4.3-11.0)
--- NOTE | 2018-03-12 13:04 | ED General ---
General Chief Complaint: Chest Pain Stated Complaint: CP Nursing Triage Note: PT BROUGHT IN BY EMS WITH COMPLAINT OF CHEST PAIN. STATES PAIN STARTED YESTERDAY AFTERNOON. PT STATES IT IS A SHARP STABBING PAIN ON BOTH LOWER SIDES OF HIS CHEST. PT STATES IT IS PAINFUL WHENEVER HE TAKES A DEEP BREATH. Nursing Sepsis Screen: No Definite Risk Source of Information: Patient Exam Limitations: No Limitations History of Present Illness Date Seen by Provider: Mar 12, 2018 Time Seen by Provider: 13:01 Initial Comments To ER per EMS with reports of chest pain shortness of breath that began yesterday afternoon. He also states that he had a very high fever but is not sure how high because he didn't measure it thermometer. He has some lower central chest pain described as stabbing. Worse when he takes a deep breath. He denies a cough. He was seen here on 03/08/17 and requested to have his chronic indwelling Solo catheter removed. He has since been self catheterizing but was unable to do so today due to resistance that he met. He was also given a prescription for Levaquin for urinary tract infection found on urinalysis during his visit on 03/08/17 but states that he has not yet had a chance to fill that. Timing/Duration: 1-2 Days Severity: Moderate Associated Systoms: Chest Pain; No Cough; Fever/Chills, Malaise; No Nausea/ Vomiting; Shortness of Air Allergies and Home Medications Allergies Coded Allergies: metoprolol (Unverified Allergy, Unknown, 09/18/14) "sunburn" rivaroxaban (Unverified Allergy, Unknown, 12/18/14) VOMITING/DIARRHEA Home Medications Apixaban 5 Mg Tablet, 5 MG PO BID Prescribed by: PHANI VILLA on 03/12/18 1634 Aspirin 81 Mg Tablet., 81 MG PO DAILY Prescribed by: DEBBIE HOPPER on 09/20/17 1009 Atorvastatin Calcium 20 Mg Tablet, 20 MG PO HS Prescribed by: DEBBIE HOPPER on 09/20/17 1009 Levofloxacin 500 Mg Tablet, 500 MG PO DAILY Prescribed by: PIEDAD WIN on 03/08/18 1411 Multivitamin 1 Each Tablet, 1 TAB PO DAILY, (Reported) [place] 3 Polyunsat Fatty Acids 1,000 Mg Cap, 1,000 MG PO DAILY, (Reported) Omeprazole 20 Mg Capsule.dr, 20 MG PO BID, (Reported) Patient Home Medication List Home Medication List Reviewed: Yes Review of Systems Review of Systems Constitutional: see HPI EENTM: see HPI Respiratory: see HPI; No cough; short of breath Cardiovascular: see HPI, chest pain Genitourinary: no symptoms reported Musculoskeletal: no symptoms reported Skin: no symptoms reported Psychiatric/Neurological: No Symptoms Reported Past Btecewl-Eqctpi-Edpmdh Hx Patient Social History Alcohol Use: Past History Number of Drinks Today: AA Alcohol Beverage of Choice: Beer Recreational Drug Use: Yes (etoh) Drug of Choice: distant past history of marijuana use Smoking Status: Never a Smoker 2nd Hand Smoke Exposure: Yes (Father was a heavy smoker in his youth) Recent Foreign Travel: No Contact w/Someone Who Travel: No Recent Infectious Disease Expo: No Recent Hopitalizations: No Immunizations Up To Date Tetanus Booster (TDap): Unknown PED Vaccines UTD: Yes Date of Pneumonia Vaccine: Feb 28, 2013 Date of Influenza Vaccine: Dec 27, 2016 Seasonal Allergies Seasonal Allergies: No Past Medical History Surgeries: Yes (colonoscopy, EGD) Abdominal, CABG, Eye Surgery, Pacemaker, Vascular Surgery Respiratory: Yes Pneumonia, Pulmonary Embolism Currently Using CPAP: No Currently Using BIPAP: No Cardiac: Yes Atrial Fibrillation, Cardiomyopathy, Coronary Artery Disease, Deep Vein Thrombosis, Heart Murmur, High Cholesterol, Hypertension, Irregular Heartbeat Neurological: No Reproductive Disorders: No Sexually Transmitted Disease: No HIV/AIDS: No Genitourinary: Yes (chronic solo) Benign Prostatic Hyperpl, Kidney Infection, Bladder Infection, Neurogenic Bladder Gastrointestinal: Yes Chronic Constipation Musculoskeletal: Yes (L hip fx, right ankle broken) Fractures Endocrine: No HEENT: Yes Cataract Loss of Vision: Denies Hearing Impairment: Denies Cancer: No Psychosocial: No Integumentary: No Blood Disorders: Yes Adverse Reaction/Blood Tranf: No Family Medical History Cancer (LINING OF ABD CAVITY, AT AGE 80) 03 MOTHER Chest pain (FATHER OF [place] AT AGE 83) 03 FATHER Congestive heart failure 03 FATHER Family history: Arthritis 03 MOTHER, Onset:60 years & older Family history: Cardiovascular disease 03 FATHER Heart disease 03 FATHER Hypercholesterolemia 03 FATHER 03 MOTHER Myocardial infarction 03 FATHER Prostate cancer (DIAGNOSED AT 70 OR 71 PER PT) 03 FATHER Stroke 09 SISTER Visual impairment (SISTER WEARS GLASSES ) 09 SISTER No Family History of: Abdominal aortic aneurysm Jorge's disease Alcoholism Aphasia Cancer of colon Cataract Congenital heart disease Cystic fibrosis Dementia Dysphagia Family history: Allergy Family history: Alzheimer's disease Family history: Asthma Family history: Breast disease Family history: Coronary thrombosis Family history: Diabetes mellitus Family history: Gastrointestinal disease Family history: Glaucoma Family history: Hypertension Family history: Osteoporosis Family history: Thyroid disorder Headache Hearing loss Hereditary disease History of - anemia History of - disorder History of - respiratory disease History of drug abuse Human immunodeficiency virus (HIV) seropositivity Infertile Kidney disease Malignant neoplasm of lung Parkinson's disease Psychotic disorder Seizure disorder Tuberculosis Cancer, CAD Over 55 Years Old, CVA Physical Exam Vital Signs Vital Signs - First Documented 03/12/18 12:41 Temp 98.8 Pulse 82 Resp 16 B/P (MAP) 136/81 (99) Pulse Ox 100 O2 Delivery Room Air Capillary Refill : Less Than 3 Seconds Height, Weight, BMI Height: 5'11.00" Weight: 199lbs. 6.0oz. 90.919469mi; 27.6 BMI Method:Stated General Appearance: No Apparent Distress, WD/WN Eyes: Bilateral Eye Normal Inspection, Bilateral Eye PERRL, Bilateral Eye EOMI HEENT: PERRL/EOMI, TMs Normal Neck: Full Range of Motion, Normal Inspection, Other (there is no jugular vein distention) Respiratory: No Accessory Muscle Use, No Respiratory Distress, Other Cardiovascular: Regular Rate, Rhythm, Normal Peripheral Pulses Gastrointestinal: Non Tender, Soft Extremity: Normal Capillary Refill, Normal Inspection, Other (no pitting edema) Neurologic/Psychiatric: Alert, Oriented x3 Skin: Normal Color, Warm/Dry Focused Exam Lactate Level 03/12/18 13:39: Lactic Acid Level 2.03*H 03/12/18 15:55: Lactic Acid Level 1.21 Lactic Acid Level Laboratory Tests Test 03/12/18 13:39 03/12/18 15:55 Lactic Acid Level 2.03 MMOL/L (0.50-2.00) *H 1.21 MMOL/L (0.50-2.00) Progress/Results/Core Measures Suspected Sepsis Recent Fever Within 48 Hours: No Infection Criteria Present: None New/Unexplained Altered Menta: No Sepsis Screen: No Definite Risk SIRS Temperature:98.8 Pulse: 82 Respiratory Rate: 16 Laboratory Tests 03/12/18 12:46: White Blood Count 8.5 Blood Pressure 136 /81 Mean: 99 03/12/18 13:39: Lactic Acid Level 2.03*H 03/12/18 15:55: Lactic Acid Level 1.21 Laboratory Tests 03/12/18 12:46: Creatinine 1.43H, INR Comment 1.1, Platelet Count 205, Total Bilirubin 1.6H Results/Orders Lab Results Laboratory Tests Test 03/12/18 12:46 03/12/18 12:58 03/12/18 13:39 03/12/18 15:55 Range/Units White Blood Count 8.5 4.3-11.0 10^3/uL Red Blood Count 5.10 4.35-5.85 10^6/uL Hemoglobin 13.1 L 13.3-17.7 G/DL Hematocrit 41 40-54 % Mean Corpuscular Volume 79 L 80-99 FL Mean Corpuscular Hemoglobin 26 25-34 PG Mean Corpuscular Hemoglobin Concent 32 32-36 G/DL Red Cell Distribution Width 17.3 H 10.0-14.5 % Platelet Count 205 130-400 10^3/uL Mean Platelet Volume 10.7 H 7.4-10.4 FL Neutrophils (%) (Auto) 74 42-75 % Lymphocytes (%) (Auto) 13 12-44 % Monocytes (%) (Auto) 11 0-12 % Eosinophils (%) (Auto) 1 0-10 % Basophils (%) (Auto) 0 0-10 % Neutrophils # (Auto) 6.3 1.8-7.8 X 10^3 Lymphocytes # (Auto) 1.1 1.0-4.0 X 10^3 Monocytes # (Auto) 1.0 0.0-1.0 X 10^3 Eosinophils # (Auto) 0.1 0.0-0.3 10^3/uL Basophils # (Auto) 0.0 0.0-0.1 10^3/uL Prothrombin Time 14.6 12.2-14.7 SEC INR Comment 1.1 0.8-1.4 Activated Partial Thromboplast Time 30 24-35 SEC Sodium Level 137 135-145 MMOL/L Potassium Level 4.0 3.6-5.0 MMOL/L Chloride Level 103 98-107 MMOL/L Carbon Dioxide Level 20 L 21-32 MMOL/L Anion Gap 14 5-14 MMOL/L Blood Urea Nitrogen 17 7-18 MG/DL Creatinine 1.43 H 0.60-1.30 MG/DL Estimat Glomerular Filtration Rate 48 BUN/Creatinine Ratio 12 Glucose Level 88 70-105 MG/DL Calcium Level 10.1 8.5-10.1 MG/DL Corrected Calcium 8.5-10.1 MG/DL Magnesium Level 2.2 1.8-2.4 MG/DL Total Bilirubin 1.6 H 0.1-1.0 MG/DL Aspartate Amino Transf (AST/SGOT) 18 5-34 U/L Alanine Aminotransferase (ALT/SGPT) 9 0-55 U/L Alkaline Phosphatase 102 40-136 U/L Myoglobin 102.7 H 10.0-92.0 NG/ML Troponin I 0.098 0.093 <0.028 NG/ML B-Type Natriuretic Peptide 441.6 H <100.0 PG/ML Total Protein 7.9 6.4-8.2 GM/DL Albumin 4.6 H 3.2-4.5 GM/DL Lipase 29 8-78 U/L Urine Color YELLOW Urine Clarity CLEAR Urine pH 7 5-9 Urine Specific [place] 1.015 L 1.016-1.022 Urine Protein 2+ H NEGATIVE Urine Glucose (UA) NEGATIVE NEGATIVE Urine Ketones NEGATIVE NEGATIVE Urine Nitrite NEGATIVE NEGATIVE Urine Bilirubin NEGATIVE NEGATIVE Urine Urobilinogen NORMAL NORMAL MG/DL Urine Leukocyte Esterase 1+ H NEGATIVE Urine RBC (Auto) 5+ H NEGATIVE Urine RBC 50-100 H /HPF Urine WBC 2-5 /HPF Urine Squamous Epithelial Cells NONE /HPF Urine Crystals NONE /LPF Urine Bacteria NEGATIVE /HPF Urine Casts NONE /LPF Urine Mucus NEGATIVE /LPF Urine Culture Indicated NO Lactic Acid Level 2.03 *H 1.21 0.50-2.00 MMOL/L My Orders Orders - PHANI VILLA [employer] RESURFACER Cbc With Automated Diff (03/12/18 12:48) Magnesium (03/12/18 12:48) Chest 1 View, Ap/Pa Only (03/12/18 12:48) Ekg Tracing (03/12/18 12:48) Cardiac Profile 1 (03/12/18 12:48) Comprehensive Metabolic Panel (03/12/18 12:48) Myoglobin Serum (03/12/18 12:48) Protime With Inr (03/12/18 12:48) Partial Thromboplastin Time (03/12/18 12:48) O2 (03/12/18 12:48) Monitor-Rhythm Ecg Trace Only (03/12/18 12:48) Lipid Panel (03/13/18 06:00) Aspirin Chewable Tablet (Baby Aspirin Ch (03/12/18 13:00) Saline Lock/Iv-Start (03/12/18 12:48) BNP (03/12/18 12:48) Ua Culture If Indicated (03/12/18 12:53) Solo Cath (03/12/18 12:53) Influenza A And B Antigens (03/12/18 12:53) Blood Culture (03/12/18 12:54) Lactic Acid Analyzer (03/12/18 12:54) Lipase (03/12/18 12:48) Ct Angio Chest W (03/12/18 13:58) Iohexol Injection (Omnipaque 350 Mg/Ml 1 (03/12/18 14:15) Contrast Received (Contrast Received) (03/12/18 14:15) Ns (Ivpb) (Sodium Chloride 0.9% Ivpb Bag (03/12/18 14:15) Troponin I (03/12/18 15:43) Medications Given in ED Current Medications Medications Dose Ordered Sig/Sukhjinder Route Start Time Stop Time Status Last Admin Dose Admin Iohexol 125 ml ONCE ONCE IV 03/12/18 14:15 03/12/18 14:16 DC 03/12/18 14:28 125 ML Sodium Chloride 50 ml ONCE ONCE IV 03/12/18 14:15 03/12/18 14:16 DC 03/12/18 14:28 80 ML Vital Signs/I&O 03/12/18 12:41 Temp 98.8 Pulse 82 Resp 16 B/P (MAP) 136/81 (99) Pulse Ox 100 O2 Delivery Room Air Capillary Refill : Less Than 3 Seconds Blood Pressure Mean: 99 Diagnostic Imaging Diagonstic Imaging: Xray Plain Films/CT/US/NM/MRI: chest Comments NAME: JORGE ALBERTO CALDWELL JR MED REC#: [id number] PT STATUS: REG ER : 1945 PHYSICIAN: PHANI VILLA APRN ADMIT DATE: 03/12/18/ER Draft Date of Exam:03/12/18 CHEST 1 VIEW, AP/PA ONLY EXAMINATION: Portable chest INDICATION: Chest pain. Comparison made to the prior study from 09/24/2017. FINDINGS: Patient is status post previous sternotomy and coronary artery bypass grafting. Pacemaker device is also present. Heart size appears stable. There is no evidence to suggest current congestive failure. No effusion. There is no alveolar consolidation. There is no pneumothorax. There are degenerative changes present within the spine but no acute osseous abnormality demonstrated. IMPRESSION: 1. Previous bypass grafting without evidence of edema or failure. No focal alveolar infiltrate or effusion evident. No acute osseous abnormality demonstrated. Dictated on workstation # [id number] Dict: 03/12/18 1314 Trans: 03/12/18 1327 [facility] [id number] Interpreted by: SHERIE WILSON MD Electronically signed by: NAME: JORGE ALBERTO CALDWELL JR [facility] REC#: [id number] PT STATUS: REG ER : 1945 PHYSICIAN: PHANI VILLA APRN ADMIT DATE: 03/12/18/ER Draft Date of Exam:03/12/18 CT ANGIO CHEST W INDICATION: Chest pain, started yesterday afternoon. Sharp stabbing sensation. Pain with deep breaths. EXAMINATION: CTA chest, 03/12/2018. COMPARISON: 07/08/2012. FINDINGS: A linear focal low-density area noted at the bifurcation of the vessels in the right lower lobe, similar to prior due to the appearance of the bifurcation rather than an acute embolus. The previously noted left lower lobe embolus is seen. This area demonstrated emboli previously although decreased in size. Some of this could be chronic but superimposed. New thrombus is difficult to exclude. Remaining vessels appear patent. No central emboli appreciated. The thoracic aorta is stable from prior postoperative findings, anterior to the aorta, noted. There is a moderate-sized hiatal hernia. The lungs contain linear densities in the left upper lobe and lingula, likely scar and/or atelectasis. No pneumothorax or pleural effusions. Visualized upper abdominal structures demonstrate no acute findings. No acute osseous abnormality. IMPRESSION: Emboli in the left lower lobe could be chronic although new superimposed embolus is difficult to completely exclude. Correlate with symptoms. Remaining vessels are stable from previous. Findings discussed with Dr. Edwadr by Dr. Romano at time of dictation, 3:22 p.m., 03/12/2018. Dictated on workstation # [id number] Dict: 03/12/18 1516 Trans: 03/12/18 1618 [facility] [id number] Interpreted by: DIGNA ROMANO MD Electronically signed by: Departure Communication (Admissions) Patient states that he was formerly on Eliquis until May of last year for history of DVT/pulmonary embolism but this was stopped in May 2017 due to hematuria 1510-discussed further workup plan with Dr. Orta on-call for [facility] to include whether we admit with empiric Lovenox and VQ scan tomorrow or proceed with CT imaging currently and hydrate (given his kidney dysfunction). He recommends proceeding with CT imaging. 1529- radiologist called to report a similar appearance a CT angiogram which is to say that there is still bilateral pulmonary emboli. However he is neither hypotensive nor hypoxic, not hemodynamically unstable and does not need to be admitted. However his Eliquis should be restarted. I discussed with Dr. Carbajal. He agrees that this is a tough situation and we should proceed with managing the pulmonary embolism and if he develops significant hematuria address that at the time. He does have 50-100 red blood cells in the urine but it is not grossly bloody Impression Primary Impression: Bilateral pulmonary embolism Additional Impression: Hematuria Qualified Codes: R31.9 - Hematuria, unspecified Disposition: 01 HOME, SELF-CARE Condition: Stable Departure-Patient Inst. Decision time for Depature: 15:31 Referrals: [facility] [place] ([place]) Primary Care Physician JAYJAY CARBAJAL MD Patient Instructions: Blood in the Urine (Hematuria) in Adults, Pulmonary Embolism (Blood Clot in the Lungs) Add. Discharge Instructions: 1. Call [facility] to make an appointment to be seen tomorrow. Take blood thinners as directed. If you develop sensation of full bladder or very bloody- appearing urine, call your doctor or return to the emergency room. Also, call Dr. Carbajal tomorrow to make an appointment to be seen. All discharge instructions reviewed with patient and/or family. Voiced understanding. Scripts Apixaban (Eliquis) 5 Mg Tablet 5 MG PO BID, #72 TAB Prov: PHANI VILLA [employer] RESURFACER 03/12/18 PHANI VILLA APRN Mar 12, 2018 13:04
[2018-03-12 13:06] LABS: BILIRUBIN,URINE NEGATIVE (NEGATIVE); CLARITY,URINE CLEAR; COLOR,URINE YELLOW; GLUCOSE, URINE (UA) NEGATIVE (NEGATIVE); KETONES,URINE NEGATIVE (NEGATIVE); LEUKOCYTE ESTERASE ,URINE 1+ (NEGATIVE); NITRITE,URINE NEGATIVE (NEGATIVE); PH,URINE 7 (5-9); PROTEIN,URINE 2+ (NEGATIVE); UROBILINOGEN,URINE NORMAL (NORMAL)
[2018-03-12 13:14] LABS: INR 1.1 (0.8-1.4); PROTHROMBIN TIME PATIENT 14.6 SEC (12.2-14.7)
[2018-03-12 13:17] LABS: BACTERIA,URINE NEGATIVE /HPF; RBC,URINE 50-100 /HPF
[2018-03-12 13:23] LABS: ALANINE AMINOTRANSFERASE 9 U/L (0-55); ALBUMIN 4.6 GM/DL (3.2-4.5); ALKALINE PHOSPHATASE 102 U/L (40-136); BILIRUBIN,TOTAL 1.6 MG/DL (0.1-1.0); BUN/CREATININE RATIO 12; CALCIUM 10.1 MG/DL (8.5-10.1); CARBON DIOXIDE 20 MMOL/L (21-32); CHLORIDE 103 MMOL/L (98-107); CREATININE SERUM 1.43 MG/DL (0.60-1.30); GFR ESTIMATED 48; GLUCOSE 88 MG/DL (70-105); LIPASE 29 U/L (8-78); MAGNESIUM 2.2 MG/DL (1.8-2.4); SODIUM 137 MMOL/L (135-145); TOTAL PROTEIN 7.9 GM/DL (6.4-8.2)
--- NOTE | 2018-03-12 13:28 | Diagnostic Imaging Report ---
EXAMINATION: Portable chest INDICATION: Chest pain. Comparison made to the prior study from 09/24/2017. FINDINGS: Patient is status post previous sternotomy and coronary artery bypass grafting. Pacemaker device is also present. Heart size appears stable. There is no evidence to suggest current congestive failure. No effusion. There is no alveolar consolidation. There is no pneumothorax. There are degenerative changes present within the spine but no acute osseous abnormality demonstrated. IMPRESSION: 1. Previous bypass grafting without evidence of edema or failure. No focal alveolar infiltrate or effusion evident. No acute osseous abnormality demonstrated. Dictated by: Dictated on workstation # [id number]
[2018-03-12 13:30] LABS: MYOGLOBIN SERUM 102.7 NG/ML (10.0-92.0)
[2018-03-12] MEDS ORDERED: IOHEXOL 350 MG/ML 150 ML (OMNIPAQUE 350) VIAL IV ONE (14:15)
[2018-03-12] MEDS ORDERED: RECEIVED CONTRAST (Hold Metformin) IV SCH (14:15)
[2018-03-12] MEDS ORDERED: NS 50 ML (IVPB) BAG IV ONE (14:15)
--- NOTE | 2018-03-12 16:18 | Diagnostic Imaging Report ---
INDICATION: Chest pain, started yesterday afternoon. Sharp stabbing sensation. Pain with deep breaths. EXAMINATION: CTA chest, 03/12/2018. COMPARISON: 07/08/2012. FINDINGS: A linear focal low-density area noted at the bifurcation of the vessels in the right lower lobe, similar to prior due to the appearance of the bifurcation rather than an acute embolus. The previously noted left lower lobe embolus is seen. This area demonstrated emboli previously although decreased in size. Some of this could be chronic but superimposed. New thrombus is difficult to exclude. Remaining vessels appear patent. No central emboli appreciated. The thoracic aorta is stable from prior postoperative findings, anterior to the aorta, noted. There is a moderate-sized hiatal hernia. The lungs contain linear densities in the left upper lobe and lingula, likely scar and/or atelectasis. No pneumothorax or pleural effusions. Visualized upper abdominal structures demonstrate no acute findings. No acute osseous abnormality. IMPRESSION: Emboli in the left lower lobe could be chronic although new superimposed embolus is difficult to completely exclude. Correlate with symptoms. Remaining vessels are stable from previous. Findings discussed with Dr. Edward by Dr. Romano at time of dictation, 3:22 p.m., 03/12/2018. Dictated by: Dictated on workstation # [id number]
[2018-03-12] MEDS ORDERED: APIX5TAB PO (16:34)
[2018-03-12 17:25] VITALS: BP 115/63
== END 2018-03-12 17:25 | disposition home or self-care (01) ==
LOC: ER 12:41 → EDUNIT# 12:41 → ER 17:25
DX: I26.99 Other pulmonary embolism without acute cor pulmonale (principal); R31.9 Hematuria, unspecified; I48.91 Unspecified atrial fibrillation; I42.9 Cardiomyopathy, unspecified; E78.00 Pure hypercholesterolemia, unspecified; I10 Essential (primary) hypertension; I25.10 Atherosclerotic heart disease of native coronary artery without angina pectoris; Z86.718 Personal history of other venous thrombosis and embolism; Z88.8 Allergy status to other drugs, medicaments and biological substances; Z87.448 Personal history of other diseases of urinary system; Z87.19 Personal history of other diseases of the digestive system; Z80.0 Family history of malignant neoplasm of digestive organs; Z82.49 Family history of ischemic heart disease and other diseases of the circulatory system; Z80.42 Family history of malignant neoplasm of prostate; Z96.0 Presence of urogenital implants; Z87.440 Personal history of urinary (tract) infections; Z79.82 Long term (current) use of aspirin; Z79.01 Long term (current) use of anticoagulants; Z77.22 Contact with and (suspected) exposure to environmental tobacco smoke (acute) (chronic); Z95.1 Presence of aortocoronary bypass graft; Z98.890 Other specified postprocedural states; Z95.0 Presence of cardiac pacemaker; Z87.01 Personal history of pneumonia (recurrent); Z86.711 Personal history of pulmonary embolism
CPT/HCPCS: 36415; 51702; 71045; 71275; 80053; 81000; 83605; 83690; 83735; 83874; 83880; 84484; 85025; 85610; 85730; 87040; 87804; 93005; 93041

== ENCOUNTER 2018-07-18 18:00 | Inpatient (IN) | payer MEDICARE ==
[2018-07-18] VITALS (9 sets, daily range): BP systolic 111–125; BP diastolic 60–81
[~2018-07-18] VITALS: Ht 180.3 cm; Wt 93.1 kg
[~2018-07-18 18:00] MED LIST changes: +LOSA25TA41 PO; -LOSA25TA6 PO
--- OUTSIDE RECORDS SUMMARY | 2018-07-18 18:05 | XMS REPORT | Clinical Summary ---
Author Author [facility] Organization [facility] Address Unknown Phone Unavailable Care Team Providers Care Balloon Pilot Name Role Phone PCP Unavailable Allergies Not on File Current Medications Not on file Active Problems Not on file Social History Tobacco Use Types Packs/Day Years Used Date Never Assessed Sex Assigned at Date Recorded Not on file Last Filed Vital Signs Not on file Plan of Treatment Not on file Results Not on filefrom Last 3 Months
[2018-07-18] MEDS ORDERED: ASPIRIN 81 MG CHEW (CHILDREN'S ASA) PO ONE ×2 (18:15→21:30)
[2018-07-18 18:16] LABS: BASOPHILS % (AUTO) 1 % (0-10); EOSINOPHILS % (AUTO) 1 % (0-10); HEMATOCRIT 39 % (40-54); HEMOGLOBIN 12.7 G/DL (13.3-17.7); LYMPHOCYTES # (AUTO) 1.7 X 10^3 (1.0-4.0); LYMPHOCYTES % (AUTO) 29 % (12-44); MEAN CORPUSCULAR HEMOGLOBIN 26 PG (25-34); MEAN CORPUSCULAR HGB CONC 32 G/DL (32-36); MEAN CORPUSCULAR VOLUME 80 FL (80-99); MEAN PLATELET VOLUME 10.1 FL (7.4-10.4); MONOCYTES # (AUTO) 0.5 X 10^3 (0.0-1.0); MONOCYTES % (AUTO) 9 % (0-12); NEUTROPHILS # (AUTO) 3.4 X 10^3 (1.8-7.8); NEUTROPHILS % (AUTO) 60 % (42-75); PLATELET COUNT 216 10^3/uL (130-400); WHITE BLOOD COUNT 5.7 10^3/uL (4.3-11.0)
[2018-07-18] MEDS: NITROGLYCERIN 0.4 MG SL TABS BTL 25'S SL PRN (18:16)
[2018-07-18 18:27] LABS: INR 1.1 (0.8-1.4); PROTHROMBIN TIME PATIENT 14.4 SEC (12.2-14.7)
[2018-07-18 18:36] LABS: BILIRUBIN,TOTAL 0.7 MG/DL (0.1-1.0); CALCIUM 9.6 MG/DL (8.5-10.1); CREATININE SERUM 1.77 MG/DL (0.60-1.30); MAGNESIUM 1.9 MG/DL (1.8-2.4); POTASSIUM 4.1 MMOL/L (3.6-5.0); TOTAL PROTEIN 6.5 GM/DL (6.4-8.2)
[2018-07-18] MEDS ORDERED: fentaNYL INJECTION 100 MCG/2 ML AMP ONE ×2 (18:42→19:23)
[2018-07-18] MEDS ORDERED: NS IV 1000 ML 1,000 ML ONE ×2 (18:42→19:24)
[2018-07-18 18:43] LABS: CREATINE KINASE MB 3.9 NG/ML (<6.6)
--- NOTE | 2018-07-18 18:44 | Diagnostic Imaging Report ---
INDICATION: Chest pain. TIME OF EXAM: 6:26 p.m. COMPARISON: Correlation is made with prior study from 03/12/2018. FINDINGS: Changes of median sternotomy and CABG are noted. Cardiac pacer is in place. Lungs are clear. No infiltrate or failure is detected. No effusion or pneumothorax is seen. IMPRESSION: No acute cardiopulmonary process is detected. Dictated by: Dictated on workstation # [id number]
[2018-07-18] MEDS ORDERED: fentaNYL INJECTION 100 MCG/2 ML AMP IVP ONE ×2 (18:45→19:15)
[2018-07-18] MEDS ORDERED: NS IV 1000 ML 1,000 ML IV ONE (18:45)
--- OUTSIDE RECORDS SUMMARY | 2018-07-18 19:03 | XMS REPORT | Clinical Summary ---
Author Author [facility] Organization [facility] Address Unknown Phone Unavailable Care Team Providers Care Green Feed Attendant Name Role Phone PCP Unavailable Allergies Not [...]
[2018-07-18] MEDS ORDERED: HEParin 1000 UNIT/ML (10ML VIAL) FOR BOLUS ONE (19:23)
[2018-07-18] MEDS ORDERED: MIDAZOLAM 5 MG/5 ML (VERSED) VIAL ONE (19:23)
[2018-07-18] MEDS ORDERED: NITRO DRIP 25000 MCG/D5W 0 ML IV ONE (19:23)
[2018-07-18] MEDS ORDERED: EPTIFIBATIDE BOLUS 0 ML IV ONE (19:24)
[2018-07-18] MEDS ORDERED: HEParin (CATH LAB) 2,000 ML IV ONE (19:24)
[2018-07-18] MEDS ORDERED: LIDOCAINE 1% INJ 20 ML 20 ML VIAL ONE (19:24)
--- NOTE | 2018-07-18 19:42 | Cardiology History & Physical ---
HPI-Cardiology Cardiology H&P Date of Admission [facility] Attending Physician Adithya Sullivan MD, MA FACP FAC FSCAI CCDS Consulting Physician KAELA CC: Chest pain HPI: 72 yo man with known CAD and other comorbidities (see below) who presents with chest pain of sudden onset while at dinner. Pain is a severe pressure in the mid sternum radiating to the back and shoulders and associated with some diaphoresis, continuous for nearly 2 hours prior to presentation, still present, without aggravating or relieving factors. Has had similar symptoms for a few days prior to presentation, lasting for several minutes, but is severer and u nresolving today. Does not report palp or syncope or leg swelling. Has chronic shortness of breath Review of Systems-Cardiology Review of Systems Constitutional: malaise; No weight loss, No weight gain Eyes: No vision change Ears/Nose/Throat: No ear discharge, No nasal drainage, No recent hearing loss Respiratory: As described under HPI Cardiovascular: As described under HPI Gastrointestinal: No diarrhea, No nausea, No vomiting Genitourinary: No hematuria; other (chronic indwelling catheter); No urine frequency changes Musculoskeletal: No back pain, No joint pain Skin: No rash, No ulcerations Psychiatric/Neurological: No focal weakness, No syncope Hematologic: No bleeding abnormalities FAV-Mhxhkx-Hvngeo Hx Patient Social History Alcohol Use: Occasionally Uses Recreational Drug Use: No (etoh) Drug of Choice: distant past history of marijuana use Smoking Status: Never a Smoker 2nd Hand Smoke Exposure: Yes (Father was a heavy smoker in his youth) Recent Foreign Travel: No Recent Infectious Disease Expo: No Hospitalization with Isolation: Denies Immunizations Up To Date Tetanus Booster (TDap): Unknown Date of Pneumonia Vaccine: Feb 28, 2013 Date of Influenza Vaccine: Dec 27, 2016 Past Medical History PMH As described under Assessment. Family Medical History Family History: Cancer (LINING OF ABD CAVITY, AT AGE 80) 03 MOTHER Chest pain (FATHER OF [place] AT AGE 83) 03 FATHER Congestive heart failure 03 FATHER Family history: Arthritis 03 MOTHER, Onset:60 years & older Family history: Cardiovascular disease 03 FATHER Heart disease 03 FATHER Hypercholesterolemia 03 FATHER 03 MOTHER Myocardial infarction 03 FATHER Prostate cancer (DIAGNOSED AT 72 OR 73 PER PT) 03 FATHER Stroke 09 SISTER Visual impairment (SISTER WEARS GLASSES ) 09 SISTER No Family History of: Abdominal aortic aneurysm [place]'s disease Alcoholism Aphasia Cancer of colon Cataract Congenital heart disease Cystic fibrosis Dementia Dysphagia Family history: Allergy Family history: Alzheimer's disease Family history: Asthma Family history: Breast disease Family history: Coronary thrombosis Family history: Diabetes mellitus Family history: Gastrointestinal disease Family history: Glaucoma Family history: Hypertension Family history: Osteoporosis Family history: Thyroid disorder Headache Hearing loss Hereditary disease History of - anemia History of - disorder History of - respiratory disease History of drug abuse Human immunodeficiency virus (HIV) seropositivity Infertile Kidney disease Malignant neoplasm of lung Parkinson's disease Psychotic disorder Seizure disorder Tuberculosis Allergies and Home Medications Allergies Coded Allergies: metoprolol (Unverified Allergy, Unknown, 09/18/14) "sunburn" rivaroxaban (Unverified Allergy, Unknown, 12/18/14) VOMITING/DIARRHEA Home Medications Apixaban 5 Mg Tablet, 5 MG PO BID Prescribed by: PHANI VILLA on 03/12/18 1634 Aspirin 81 Mg Tablet.dr, 81 MG PO DAILY Prescribed by: DEBBIE HOPPER on 09/20/17 1009 Atorvastatin Calcium 20 Mg Tablet, 20 MG PO HS Prescribed by: DEBBIE HOPPER on 09/20/17 1009 Levofloxacin 500 Mg Tablet, 500 MG PO DAILY Prescribed by: PIEDAD WIN on 03/08/18 1411 Multivitamin 1 Each Tablet, 1 TAB PO DAILY, (Reported) [place] 3 Polyunsat Fatty Acids 1,000 Mg Cap, 1,000 MG PO DAILY, (Reported) Omeprazole 20 Mg Capsule.dr, 20 MG PO BID, (Reported) Patient Home Medication List Home Medication List Reviewed: Yes Physical Exam-Cardiology Physical Exam Vital Signs/I&O 07/18/18 18:00 Temp 97.2 Pulse 80 Resp 20 B/P (MAP) 130/72 (91) Pulse Ox 98 Capillary Refill : Less Than 3 Seconds Constitutional: AAO x 3, well-developed, well-nourished HEENT: hearing is well preserved; No xanthelasmas are seen Neck: carotid pulses are 2 + bilaterally, with good upstrokes Respiratory: No accessory muscle use; other (Good bilat air entry, somewhat diminished at the bases) Cardiovascular: regular rate-rhythm, S1 and S2, systolic murmur (2/6 KARINA at card base) Gastrointestinal: No tender; soft; No guarding, No rebound; audible bowel sounds, other (ventral abdominal hernia in the episgastrium, self-reducing) Extremities: No clubbing, No cyanosis, No significant edema Neurologic/Psychiatric: oriented x 3, grossly intact, power is 5/5 both on sides Skin: No rash on exposed areas, No ulcerations on exposed areas Data Review Labs Laboratory Tests 07/18/18 18:05: White Blood Count 5.7, Red Blood Count 4.92, Hemoglobin 12.7L, Hematocrit 39L, Mean Corpuscular Volume 80, Mean Corpuscular Hemoglobin 26, Mean Corpuscular Hemoglobin Concent 32, Red Cell Distribution Width 17.0H, Platelet Count 216, Mean Platelet Volume 10.1, Neutrophils (%) (Auto) 60, Lymphocytes (%) (Auto) 29, Monocytes (%) (Auto) 9, Eosinophils (%) (Auto) 1, Basophils (%) (Auto) 1, Neutrophils # (Auto) 3.4, Lymphocytes # (Auto) 1.7, Monocytes # (Auto) 0.5, Eosinophils # (Auto) 0.0, Basophils # (Auto) 0.0, Prothrombin Time 14.4, INR Comment 1.1, Activated Partial Thromboplast Time 29, Sodium Level 138, Potassium Level 4.1, Chloride Level 106, Carbon Dioxide Level 19L, Anion Gap 13, Blood Urea Nitrogen 16, Creatinine 1.77H, Estimat Glomerular Filtration Rate 38, BUN/Creatinine Ratio 9, Glucose Level 142H, Calcium Level 9.6, Corrected Calcium 9.6, Magnesium Level 1.9, Total Bilirubin 0.7, Aspartate Amino Transf (AST/SGOT) 21, Alanine Aminotransferase (ALT/SGPT) 18, Alkaline Phosphatase 81, Total Creatine Kinase 183, Creatine Kinase MB 3.9, Myoglobin 149.5H, Troponin I 0.072H , B-Type Natriuretic Peptide 254.0H, Total Protein 6.5, Albumin 4.0, Amylase Level 126H, Lipase 37 Laboratory Tests 07/18/18 18:05 A/P-Cardiology Assessment/Admission Diagnosis Ac NSTEMI with continuing chest pain CAD. H/o CABG in 2017: [place] to LAD, SVG to diag, SVG to OM1, SVG to OM2, SVG to PDA (Dr Fraser at [facility]) S/p dual chamber pacemaker for complete heart block, followed by Dr Khalid Ischemic cardiomyopathy. LVEF 30-35% on echo August 2016. Pt has been noncompliant with ICD placement CKD 3-4 Chronic indwelling urinary catheter. Pt states he has never had a full w/u. Has catheter in place since 2012 Frequent UTI due to chronic indwelling catheter Epigastric hernia post sternotomy, recurrent post repair R inguinal hernia by history Admission Status: Inpatient Order (span 2 midnights) Reason for Inpatient Admission: Ac SD Discussion and Recomendations * Given above history and ongoing symptoms, we recommend urgent cath. His risk for complication is higher than usual, given baseline renal insufficiency/failure. We discussed the rationale, procedure, risks, benefits, potential complications and alternatives in detail. He understands and wants to proceed * Medical Svce / Hospitalist consult for renal failure, UTI, and chronic urologic issues ADITHYA SULLIVAN MD FACP FACC CCDS July 18, 2018 19:42
[2018-07-18] MEDS: NS IV 1000 ML 1,000 ML IV SCH ×2 (20:03→21:54)
[2018-07-18] MEDS ORDERED: APIXABAN 5 MG (ELIQUIS) TABLET PO ONE (21:30)
[2018-07-18] MEDS ORDERED: ACETAMINOPHEN 325 MG TABLET PO PRN (21:30)
[2018-07-18] MEDS ORDERED: ATORVASTATIN 20 MG (LIPITOR) TABLET PO SCH (21:45)
[2018-07-18] MEDS ORDERED: PATIENT MAY USE OWN MEDS, ALL PO SCH (21:45)
--- NOTE | 2018-07-18 21:46 | NUR ---
Aspirin non admin d/t dose given in ED 324mg.
[2018-07-19] VITALS (12 sets, daily range): BP systolic 106–160; BP diastolic 61–100
--- NOTE | 2018-07-19 00:03 | NUR ---
Patient having chest pain rated 8 out of 10 at this time. Pain radiating to back. BP 122/100.
[2018-07-19] MEDS: NITROGLYCERIN 0.4 MG SL TABS BTL 25'S SL PRN (00:06)
--- NOTE | 2018-07-19 00:18 | NUR ---
Spoke to Dr Sullivan at this time to update on patent c/o chest pain unrelieved with Nitro and Tylenol. Order for Morphine for pain PRN. See orders.
[2018-07-19] MEDS ORDERED: morphine INJ 4 MG/ML 1 ML (VIAL/SYRINGE) ONE (00:21)
[2018-07-19] MEDS ORDERED: morphine INJ 4 MG/ML 1 ML (VIAL/SYRINGE) IVP PRN (00:30)
--- NOTE | 2018-07-19 00:48 | CARDIAC CATHETERIZATION ---
DATE OF SERVICE: 07/18/2018 The patient is a 72-year-old man who had coronary artery bypass surgery in [address] Fraser at [facility] in [place], [place]. He presents with chest pain. His troponin was minimally elevated. Electrocardiogram showed chronic left bundle branch block versus a paced ventricular rhythm. Because of ongoing symptoms, urgent cardiac catheterization was recommended. Informed consent was obtained. He is previously known to have a left internal mammary artery graft to left anterior descending, saphenous vein graft to diagonal, saphenous vein graft to first obtuse marginal, saphenous vein graft to second obtuse marginal, and saphenous vein graft to posterior descending branch of the right coronary artery. DESCRIPTION OF PROCEDURE: He was brought to the cardiac catheterization laboratory. Right groin was prepared and draped in the usual sterile fashion. A 1% lidocaine was used for local anesthesia. Modified Seldinger technique was used to advance a 6-Sudanese sheath in the right femoral artery, 6-Sudanese JL4 catheter used for left coronary angiography, 6-Sudanese JR4 catheter used for right coronary angiography. Engaging the grafts proved to be very difficult. We did, however, engage all grafts selectively. Various catheters were used, including the JR4, JR5, Brock right, multipurpose for the aortocoronary grafts. For left internal mammary artery graft to the left anterior descending artery, we used a 6-Sudanese ISACC catheter. We used a 6-Sudanese pigtail catheter for left heart catheterization and left ventricular angiography. Pigtail was pulled back to the ascending aorta and ascending aortography was performed. This was because of the difficulty that we were experiencing with engaging the grafts. At the end of the procedure, Mynx was used to achieve hemostasis following sheath removal. He tolerated the procedure well. HEMODYNAMICS: Left ventricular end-diastolic pressure following coronary angiography was 12 mmHg. There was no significant pressure gradient on pullback across the aortic valve. Ascending aortic pressure was 101/55 with a mean of 71 mmHg. LEFT VENTRICULAR ANGIOGRAPHY: Left ventricular angiography was carried out in the right anterior oblique projection only. We used a small amount of dye and this did not allow adequate visualization of all the wall motion. Overall, global left ventricular systolic function appears fairly well preserved and left ventricular ejection fraction is estimated to be approximately 45%. There does appear to be cardiomegaly. ASCENDING AORTOGRAPHY: Ascending aortography was done to delineate the aortocoronary grafts. Only one graft is found to be patent. This is the aortocoronary graft to the posterior descending branch of the right coronary artery, which was subsequently selectively engaged. The left coronary grafts were all occluded and they were all selectively engaged, subsequently, as well. LEFT INTERNAL MAMMARY ARTERY GRAFT ANGIOGRAPHY: Left internal mammary artery graft to the distal left anterior descending artery is widely patent and free of significant disease. CORONARY ANGIOGRAPHY: Left main coronary artery has approximately 30% to 40% distal stenosis. The left anterior descending artery has multiple lesions, which constitute up to approximately 60% to 70% stenosis in the mid portion. The first diagonal branch, left anterior descending artery has approximately 50% ostial stenosis. The left circumflex artery has approximately 70% ostial stenosis. The mid left circumflex artery following the origin of the first obtuse marginal branch has approximately 70% long stenosis. The right coronary artery has multiple lesions. There are up to 90% lesions in the proximal and mid and distal portion of the right coronary artery prior to the origin of the posterior descending branch. SAPHENOUS VEIN GRAFT ANGIOGRAPHY: Aortocoronary grafts will be diagonal. First obtuse marginal and second obtuse marginal are all occluded at their ostia. These appeared to be chronic occlusions. The aortocoronary graft to the posterior descending branch of the right coronary artery is patent and does not exhibit significant disease. CONCLUSIONS: 1. [place] coronary artery disease consisting of 60% to 70% mid vessel stenosis of the left anterior descending, 50% ostial stenosis of the first diagonal, 70% ostial stenosis of the left circumflex, long 70% mid vessel stenosis of the left circumflex, and multiple up to 90% stenosis in the proximal and mid right coronary artery. 2. Occluded aortocoronary grafts to a diagonal, first obtuse marginal, second obtuse marginal. 3. Patent aortocoronary graft to the distal right coronary artery. 4. Patent left internal mammary artery graft to the distal left anterior descending. 5. Left ventricular ejection fraction is estimated to be approximately 45%. 6. Left ventricular end-diastolic pressure is normal. DISCUSSION AND RECOMMENDATIONS: Based on results of the study, it appears appropriate to continue a conservative approach. Medications are being optimized. He has been hospitalized for further titration of medications. Job ID: [id number] DocumentID: [id number] Dictated Date: 07/18/2018 21:09:42 Supervisor Instrument Repair Date: 07/19/2018 00:47:53 Dictated By: LUIS CARLOS MASON MD, MA, FACP, FACC, MTDD
--- NOTE | 2018-07-19 02:46 | ED Chest Pain ---
General Chief Complaint: Chest Pain Stated Complaint: NON STEMI Nursing Triage Note: PATIENT HERE BY EMS AFTER CHEST PAIN SUDDENLY CAME ON WHILE AT [facility] [place]. PATIENT STATES HE HAS NEVER HAD AN OH BUT DOES HAVE HX OF CABG AND PERMANENT PACEMAKER. Nursing Sepsis Screen: No Definite Risk Source: patient History of Present Illness Date Seen by Provider: July 18, 2018 Time Seen by Provider: 18:05 Initial Comments PT ARRIVES VIA EMS FROM [facility] PT STATES HE BEGAN HAVING LEFT SIDED CHEST PAIN 1 HOUR AGO RATES PAIN 8/10 NO RADIATION OF PAIN NOTHING WORSENS OR IMPROVES PAIN + SHORTNESS OF BREATH + SWEATS + HEADACHE NO NAUSEA/VOMITING NO PALPITATIONS NO DIZZINESS NO SWELLING IN LEGS/ FEET OR PAIN IN CALVES NO FEVER OR RECENT ILLNESS PT HAS HISTORY OF CAD, WITH CABG 07/2016; LAST CATH DONE HERE WAS 09/13/16--WAS 3-4 WEEKS POST CABG AT THAT TIME. DID HAVE OCCLUSION OF OM AND FIRST DIAGONAL ARTERIES; NO INTERVENTION WAS DONE AT THAT TIME PT HAS PACEMAKER, AND PT HAS REFUSED A LIFE VEST IN THE PAST. HAS HISTORY OF CARDIOMYOPATHY. PT HAD BILATERAL P.E.'S 02/2018 AND IS ON ELIQUIS. Allergies and Home Medications Allergies Coded Allergies: metoprolol (Unverified Allergy, Unknown, 09/18/14) "sunburn" rivaroxaban (Unverified Allergy, Unknown, 12/18/14) VOMITING/DIARRHEA Home Medications Apixaban 5 Mg Tablet, 5 MG PO BID Prescribed by: PHANI VILLA on 03/12/18 1634 Aspirin 81 Mg Tablet.dr 81 MG PO DAILY Prescribed by: DEBBIE HOPPER on 09/20/17 1009 Atorvastatin Calcium 20 Mg Tablet, 20 MG PO HS Prescribed by: DEBBIE HOPPER on 09/20/17 1009 Levofloxacin 500 Mg Tablet, 500 MG PO DAILY Prescribed by: PIEDAD WIN on 03/08/18 1411 Multivitamin 1 Each Tablet, 1 TAB PO DAILY, (Reported) [place] 3 Polyunsat Fatty Acids 1,000 Mg Cap, 1,000 MG PO DAILY, (Reported) Omeprazole 20 Mg Capsule., 20 MG PO BID, (Reported) Past Iclffbx-Qzvnxw-Oggwas Hx Patient Social History Alcohol Use: Occasionally Uses Number of Drinks Today: AA Alcohol Beverage of Choice: Beer Recreational Drug Use: No (etoh) Drug of Choice: distant past history of marijuana use Smoking Status: Never a Smoker 2nd Hand Smoke Exposure: Yes (Father was a heavy smoker in his youth) Recent Foreign Travel: No Contact w/Someone Who Travel: No Recent Infectious Disease Expo: No Recent Hopitalizations: No Immunizations Up To Date Tetanus Booster (TDap): Unknown PED Vaccines UTD: Yes Date of Pneumonia Vaccine: Feb 28, 2013 Date of Influenza Vaccine: Dec 27, 2016 Seasonal Allergies Seasonal Allergies: No Past Medical History Surgeries: Yes (colonoscopy, EGD) Abdominal, CABG, Eye Surgery, Pacemaker, Vascular Surgery Respiratory: Yes Pneumonia, Pulmonary Embolism Currently Using CPAP: No Currently Using BIPAP: No Cardiac: Yes Atrial Fibrillation, Cardiomyopathy, Coronary Artery Disease, Deep Vein Thrombosis, Heart Murmur, High Cholesterol, Hypertension, Irregular Heartbeat Neurological: No Reproductive Disorders: No Sexually Transmitted Disease: No HIV/AIDS: No Genitourinary: Yes (chronic solo) Benign Prostatic Hyperpl, Kidney Infection, Bladder Infection, Neurogenic Bladder Gastrointestinal: Yes Chronic Constipation Musculoskeletal: Yes (L hip fx, right ankle broken) Fractures Endocrine: No HEENT: Yes Cataract Loss of Vision: Denies Hearing Impairment: Denies Cancer: No Psychosocial: No Integumentary: No Blood Disorders: Yes Adverse Reaction/Blood Tranf: No Family Medical History Cancer (LINING OF ABD CAVITY, AT AGE 80) 03 MOTHER Chest pain (FATHER OF [place] AT AGE 83) 03 FATHER Congestive heart failure 03 FATHER Family history: Arthritis 03 MOTHER, Onset:60 years & older Family history: Cardiovascular disease 03 FATHER Heart disease 03 FATHER Hypercholesterolemia 03 FATHER 03 MOTHER Myocardial infarction 03 FATHER Prostate cancer (DIAGNOSED AT 70 OR 71 PER PT) 03 FATHER Stroke 09 SISTER Visual impairment (SISTER WEARS GLASSES ) 09 SISTER No Family History of: Abdominal aortic aneurysm Hill's disease Alcoholism Aphasia Cancer of colon Cataract Congenital heart disease Cystic fibrosis Dementia Dysphagia Family history: Allergy Family history: Alzheimer's disease Family history: Asthma Family history: Breast disease Family history: Coronary thrombosis Family history: Diabetes mellitus Family history: Gastrointestinal disease Family history: Glaucoma Family history: Hypertension Family history: Osteoporosis Family history: Thyroid disorder Headache Hearing loss Hereditary disease History of - anemia History of - disorder History of - respiratory disease History of drug abuse Human immunodeficiency virus (HIV) seropositivity Infertile Kidney disease Malignant neoplasm of lung Parkinson's disease Psychotic disorder Seizure disorder Tuberculosis Cancer, CAD Over 55 Years Old, CVA Physical Exam Vital Signs Vital Signs - First Documented 5/21/19 5/21/19 18:00 18:50 Temp 97.2 Pulse 80 Resp 20 B/P (MAP) 130/72 (91) Pulse Ox 98 O2 Delivery Room Air Capillary Refill : Less Than 3 Seconds Height, Weight, BMI Height: 5'11.00" Weight: 214lbs. 0.0oz. 97.598821bg; 29.9 BMI Method:Stated Progress/Results/Core Measures Results/Orders Lab Results Laboratory Tests Test 07/18/18 18:05 Range/Units White Blood Count 5.7 4.3-11.0 10^3/uL Red Blood Count 4.92 4.35-5.85 10^6/uL Hemoglobin 12.7 L 13.3-17.7 G/DL Hematocrit 39 L 40-54 % Mean Corpuscular Volume 80 80-99 FL Mean Corpuscular Hemoglobin 26 25-34 PG Mean Corpuscular Hemoglobin Concent 32 32-36 G/DL Red Cell Distribution Width 17.0 H 10.0-14.5 % Platelet Count 216 130-400 10^3/uL Mean Platelet Volume 10.1 7.4-10.4 FL Neutrophils (%) (Auto) 60 42-75 % Lymphocytes (%) (Auto) 29 12-44 % Monocytes (%) (Auto) 9 0-12 % Eosinophils (%) (Auto) 1 0-10 % Basophils (%) (Auto) 1 0-10 % Neutrophils # (Auto) 3.4 1.8-7.8 X 10^3 Lymphocytes # (Auto) 1.7 1.0-4.0 X 10^3 Monocytes # (Auto) 0.5 0.0-1.0 X 10^3 Eosinophils # (Auto) 0.0 0.0-0.3 10^3/uL Basophils # (Auto) 0.0 0.0-0.1 10^3/uL Prothrombin Time 14.4 12.2-14.7 SEC INR Comment 1.1 0.8-1.4 Activated Partial Thromboplast Time 29 24-35 SEC Sodium Level 138 135-145 MMOL/L Potassium Level 4.1 3.6-5.0 MMOL/L Chloride Level 106 98-107 MMOL/L Carbon Dioxide Level 19 L 21-32 MMOL/L Anion Gap 13 5-14 MMOL/L Blood Urea Nitrogen 16 7-18 MG/DL Creatinine 1.77 H 0.60-1.30 MG/DL Estimat Glomerular Filtration Rate 38 BUN/Creatinine Ratio 9 Glucose Level 142 H 70-105 MG/DL Calcium Level 9.6 8.5-10.1 MG/DL Corrected Calcium 9.6 8.5-10.1 MG/DL Magnesium Level 1.9 1.8-2.4 MG/DL Total Bilirubin 0.7 0.1-1.0 MG/DL Aspartate Amino Transf (AST/SGOT) 21 5-34 U/L Alanine Aminotransferase (ALT/SGPT) 18 0-55 U/L Alkaline Phosphatase 81 40-136 U/L Total Creatine Kinase 183 30-200 U/L Creatine Kinase MB 3.9 <6.6 NG/ML Myoglobin 149.5 H 10.0-92.0 NG/ML Troponin I 0.072 H <0.028 NG/ML B-Type Natriuretic Peptide 254.0 H <100.0 PG/ML Total Protein 6.5 6.4-8.2 GM/DL Albumin 4.0 3.2-4.5 GM/DL Amylase Level 126 H 25-125 U/L Lipase 37 8-78 U/L My Orders Orders - SHAYY REYES DO Ekg Tracing (07/18/18 18:04) Cbc With Automated Diff (07/18/18 18:09) Magnesium (07/18/18 18:09) Chest 1 View, Ap/Pa Only (07/18/18 18:09) Cardiac Profile 1 (07/18/18 18:09) Comprehensive Metabolic Panel (07/18/18 18:09) Myoglobin Serum (07/18/18 18:09) Protime With Inr (07/18/18 18:) Partial Thromboplastin Time (07/18/18 18:09) O2 (07/18/18 18:09) Monitor-Rhythm Ecg Trace Only (07/18/18 18:) Ed Iv/Invasive Line Start (07/18/18 18:09) Creatine Kinase (07/18/18 18:09) Creatine Kinase Mb (07/18/18 18:09) Lipase (07/18/18 18:09) Amylase (07/18/18 18:09) BNP (07/18/18 18:09) Nitroglycerin 0.4 Mg Btl 25's (Nitrostat (07/18/18 18:15) Aspirin Chewable Tablet (Baby Aspirin Ch (07/18/18 18:15) Fentanyl Injection (Sublimaze Injection (07/18/18 18:42) Ns Iv 1000 Ml (Sodium Chloride 0.9%) (07/18/18 18:42) Fentanyl Injection (Sublimaze Injection (07/18/18 18:45) Ed Iv/Invasive Line Start (07/18/18 18:45) Ns Iv 1000 Ml (Sodium Chloride 0.9%) (07/18/18 18:45) Medications Given in ED Current Medications Medications Dose Ordered Sig/Sukhjinder Route Start Time Stop Time Status Last Admin Dose Admin Aspirin 324 mg ONCE ONCE PO 07/18/18 18:15 07/18/18 18:16 DC 07/18/18 18:16 324 MG Fentanyl Citrate 25 mcg ONCE ONCE IVP 07/18/18 18:45 07/18/18 18:48 DC 07/18/18 18:48 25 MCG Nitroglycerin 0.4 mg UD PRN SL 07/18/18 18:15 07/19/18 00:06 0.4 MG Sodium Chloride 1,000 ml @ 0 mls/hr Q0M ONCE IV 07/18/18 18:45 07/18/18 18:48 DC 07/18/18 18:49 1,000 MLS/HR Vital Signs/I&O 07/18/18 07/18/18 18:00 18:50 Temp 97.2 Pulse 80 Resp 20 B/P (MAP) 130/72 (91) Pulse Ox 98 99 O2 Delivery Room Air 07/19/18 00:00 Intake Total 700 ml Balance 700 ml Blood Pressure Mean: 107 Departure Impression Primary Impression: Chest pain Disposition: ADMITTED INPATIENT Condition: Improved Departure-Patient Inst. Referrals: [facility] (PCP) Primary Care Physician SHAYY REYES DO July 19, 2018 02:46
[2018-07-19 03:21] LABS: BASOPHILS % (AUTO) 1 % (0-10); EOSINOPHILS # (AUTO) 0.1 10^3/uL (0.0-0.3); EOSINOPHILS % (AUTO) 1 % (0-10); HEMATOCRIT 35 % (40-54); HEMOGLOBIN 11.2 G/DL (13.3-17.7); LYMPHOCYTES # (AUTO) 1.6 X 10^3 (1.0-4.0); LYMPHOCYTES % (AUTO) 34 % (12-44); MEAN CORPUSCULAR HEMOGLOBIN 26 PG (25-34); MEAN CORPUSCULAR HGB CONC 32 G/DL (32-36); MEAN CORPUSCULAR VOLUME 80 FL (80-99); MEAN PLATELET VOLUME 9.9 FL (7.4-10.4); MONOCYTES # (AUTO) 0.6 X 10^3 (0.0-1.0); MONOCYTES % (AUTO) 13 % (0-12); NEUTROPHILS # (AUTO) 2.5 X 10^3 (1.8-7.8); NEUTROPHILS % (AUTO) 52 % (42-75); PLATELET COUNT 190 10^3/uL (130-400); RED CELL DISTRIBUTION WIDTH 16.9 % (10.0-14.5); WHITE BLOOD COUNT 4.8 10^3/uL (4.3-11.0)
[2018-07-19 03:43] LABS: ALBUMIN 3.3 GM/DL (3.2-4.5); BILIRUBIN,TOTAL 0.4 MG/DL (0.1-1.0); CALCIUM 8.5 MG/DL (8.5-10.1); CREATININE SERUM 1.59 MG/DL (0.60-1.30); MAGNESIUM 1.8 MG/DL (1.8-2.4); POTASSIUM 4.7 MMOL/L (3.6-5.0); TOTAL PROTEIN 5.3 GM/DL (6.4-8.2)
[2018-07-19 04:25] LABS: BILIRUBIN,URINE NEGATIVE (NEGATIVE); CLARITY,URINE CLEAR; COLOR,URINE YELLOW; GLUCOSE, URINE (UA) NEGATIVE (NEGATIVE); KETONES,URINE NEGATIVE (NEGATIVE); LEUKOCYTE ESTERASE ,URINE 3+ (NEGATIVE); NITRITE,URINE NEGATIVE (NEGATIVE); PH,URINE 8 (5-9); PROTEIN,URINE 2+ (NEGATIVE); UROBILINOGEN,URINE NORMAL (NORMAL)
[2018-07-19 04:26] LABS: BACTERIA,URINE FEW /HPF; WBC,URINE 50-100 /HPF
[2018-07-19] MEDS: inSUlin ASPART (NovoLOG) 1 UNIT/0.01 ML (CHARGE PER UNIT) SC SCH ×2 (04:57→10:19)
[2018-07-19] MEDS: NS IV 1000 ML 1,000 ML IV SCH ×3 (05:11→10:57)
[2018-07-19] MEDS: ASPIRIN 81 MG CHEW (CHILDREN'S ASA) PO SCH (08:45)
[2018-07-19] MEDS: APIXABAN 5 MG (ELIQUIS) TABLET PO SCH ×2 (08:45→20:32)
[2018-07-19] MEDS: CARVEDILOL 3.125 MG (COREG) TABLET PO SCH ×2 (08:45→20:33)
--- NOTE | 2018-07-19 11:19 | Consultation-Hospitalist ---
HPI History of Present Illness: HPI/Chief Complaint Chief complaint: Chest pain HPI: This is a 72yoWM s/p cardiac catheterization that showed no evidence of any stenosis who had elevated troponin but having epigastric pain requiring Dr. Sebastian consultation. He recently had an EGD last year. He lives alone and is maintained with a solo catheter and refuses to see Dr. Yost urology consultation here at [facility]. He was scheduled to have a renal ultrasound on July 06 but that will need to be rescheduled. There is no evidence of the need to treat chronic UTI since he has pseudomonas and that will continue to be a bacteria in his bladder but that will continue because of the solo catheter maintenance. Source: patient Exam Limitations: no limitations Date Seen 07/19/18 Attending Physician Adithya Sullivan MD [facility] [place] Referring Physician Date of Admission July 18, 2018 at 21:19 Home Medications & Allergies Home Medications Reviewed patient Home Medication Reconciliation performed by pharmacy medication reconciliations overhead crane technician and/or nursing. Patients Allergies have been reviewed. Allergies Allergies Coded Allergies metoprolol (Unverified Allergy, Unknown, 09/18/14) "sunburn" rivaroxaban (Unverified Allergy, Unknown, 12/18/14) VOMITING/DIARRHEA Past Gdxgaqv-Qmzjmw-Lvtoio Hx Past Med/Social Hx: Reviewed Nursing Past Med/Soc Hx, Reviewed and Corrections made Patient Social History Marrital Status: single Employed/Student: retired Alcohol Use: Occasionally Uses Number of Drinks Today: AA Alcohol Beverage of Choice: Beer Recreational Drug Use: No (etoh) Drug of Choice: distant past history of marijuana use Smoking Status: Never a Smoker 2nd Hand Smoke Exposure: Yes (Father was a heavy smoker in his youth) Recent Foreign Travel: No Contact w/other who traveled: No Recent Hopitalizations: No Recent Infectious Disease Expo: No Immunizations Up To Date Tetanus Booster (TDap): Unknown Pediatric: Yes Date of Pneumonia Vaccine: Feb 28, 2013 Date of Influenza Vaccine: Dec 27, 2016 Seasonal Allergies Seasonal Allergies: No Past Medical History Surgeries: Abdominal, CABG, Eye Surgery, Pacemaker, Vascular Surgery Respiratory: Pulmonary Embolism Currently Using CPAP: No Currently Using BIPAP: No Cardiac: Atrial Fibrillation, Cardiomyopathy, Coronary Artery Disease, Deep Vein Thrombosis, Heart Murmur, High Cholesterol, Hypertension, Irregular Heartbeat Reproductive: No Sexually Transmitted Disease: No HIV/AIDS: No Genitourinary: Benign Prostatic Hyperpl, Kidney Infection, Bladder Infection, Neurogenic Bladder Gastrointestinal: Gastroesophageal Reflux, Chronic Constipation Musculoskeletal: Fractures HEENT: Cataract Loss of Vision: Denies Hearing Impairment: Denies History of Blood Disorders: Yes Adverse Reaction to Blood Maurer: No Family History Cancer (LINING OF ABD CAVITY, AT AGE 80) 03 MOTHER Chest pain (FATHER OF [place] AT AGE 83) 03 FATHER Congestive heart failure 03 FATHER Family history: Arthritis 03 MOTHER, Onset:60 years & older Family history: Cardiovascular disease 03 FATHER Heart disease 03 FATHER Hypercholesterolemia 03 FATHER 03 MOTHER Myocardial infarction 03 FATHER Prostate cancer (DIAGNOSED AT 70 OR 71 PER PT) 03 FATHER Stroke 09 SISTER Visual impairment (SISTER WEARS GLASSES ) 09 SISTER No Family History of: Abdominal aortic aneurysm Jorge's disease Alcoholism Aphasia Cancer of colon Cataract Congenital heart disease Cystic fibrosis Dementia Dysphagia Family history: Allergy Family history: Alzheimer's disease Family history: Asthma Family history: Breast disease Family history: Coronary thrombosis Family history: Diabetes mellitus Family history: Gastrointestinal disease Family history: Glaucoma Family history: Hypertension Family history: Osteoporosis Family history: Thyroid disorder Headache Hearing loss Hereditary disease History of - anemia History of - disorder History of - respiratory disease History of drug abuse Human immunodeficiency virus (HIV) seropositivity Infertile Kidney disease Malignant neoplasm of lung Parkinson's disease Psychotic disorder Seizure disorder Tuberculosis Cancer, CAD Over 55 Years Old, CVA Review of Systems Constitutional: see HPI EENTM: no symptoms reported Respiratory: no symptoms reported Cardiovascular: chest pain Gastrointestinal: abdominal pain (RUQ) Genitourinary: no symptoms reported Musculoskeletal: no symptoms reported Skin: no symptoms reported Psychiatric/Neurological: No Symptoms Reported Physical Exam Physical Exam Vital Signs Vital Signs - First Documented 07/18/18 07/18/18 07/18/18 18:00 18:50 21:25 Temp 97.2 Pulse 80 Resp 20 B/P (MAP) 130/72 (91) Pulse Ox 98 O2 Delivery Room Air O2 Flow Rate 2.00 Capillary Refill : Less Than 3 Seconds Height, Weight, BMI Height: 5'11.00" Weight: 215lbs. 3.0oz. 97.565196zs; 29.9 BMI Method:Stated General Appearance: No Apparent Distress, WD/WN, Chronically ill Eyes: Bilateral Eye Normal Inspection, Bilateral Eye PERRL HEENT: PERRL/EOMI, Normal ENT Inspection, Pharynx Normal Neck: Full Range of Motion, Normal Inspection, Non Tender, Supple, Carotid Bruit Respiratory: Chest Non Tender, Lungs Clear, Normal Breath Sounds, No Accessory Muscle Use, No Respiratory Distress Cardiovascular: Regular Rate, Rhythm, No Edema, No Gallop, No JVD, No Murmur, Normal Peripheral Pulses Gastrointestinal: Normal Bowel Sounds, No Organomegaly, No Pulsatile Mass, Non Tender, Soft Back: Normal Inspection, No CVA Tenderness, No Vertebral Tenderness Extremity: Normal Capillary Refill, Normal Inspection, Normal Range of Motion, Non Tender, No Calf Tenderness, No Pedal Edema Neurologic/Psychiatric: Alert, Oriented x3, No Motor/Sensory Deficits, Normal Mood/Affect Skin: Normal Color, Warm/Dry Lymphatic: No Adenopathy Results Results/Procedures Labs Laboratory Tests 07/18/18 18:05 07/19/18 03:00 Patient resulted labs reviewed. Assessment/Plan Assessment and Plan Assess & Plan/Chief Complaint Assessment: CP Elevated troponin Chronic UTI no evidence of needing antibiotic coverage with chronic UTI due to in-dwelling catheter and refuses to see Dr Yost Urology CRI GERD Plan: Monitor clinical status No abx required he is colonized with Pseudomonas Home meds Dr Sebastian consultation Diagnosis/Problems Diagnosis/Problems (1) Chest pain Status: Acute Qualifiers: Chest pain type: chest pain on breathing Qualified Codes: R07.1 - Chest pain on breathing (2) Troponin level elevated Status: Acute (3) Elevated brain natriuretic peptide (BNP) level Status: Acute (4) GERD (gastroesophageal reflux disease) Status: Chronic Qualifiers: Esophagitis presence: esophagitis presence not specified Qualified Codes: K21.9 - Gastro-esophageal reflux disease without esophagitis (5) Pseudomonas aeruginosa colonization Status: Chronic (6) CAD (coronary artery disease) of bypass graft Status: Chronic Qualifiers: [place] vs. transplanted heart: [place] heart Associated angina: without angina Qualified Codes: I25.810 - Atherosclerosis of coronary artery bypass graft(s) without angina pectoris (7) Renal insufficiency Status: Chronic (8) Microcytic anemia Status: Chronic (9) Indwelling catheter present on admission Status: Chronic (10) BPH (benign prostatic hyperplasia) Status: Chronic Qualifiers: Lower urinary tract symptom presence: symptoms present Lower urinary tract symptom detail: urinary frequency Qualified Codes: N40.1 - Benign prostatic hyperplasia with lower urinary tract symptoms; R35.0 - Frequency of micturition (11) Essential (primary) hypertension Status: Chronic Clinical Quality Measures DVT/VTE Risk/Contraindication: Risk Factor Score Per Nursin RFS Level Per Nursing on Admit: 4+=Very High DEBBIE HOPPER DO July 19, 2018 11:19
--- NOTE | 2018-07-19 16:50 | Progress Note-Cardiology ---
Cardiology SOAP Progress Note Subjective: Gen malaise and body discomfort Denies palp or syncope Chronic exertional shortness of breath Objective: I&O/Vital Signs 07/19/18 07/19/18 07/19/18 07/19/18 05:00 06:20 07:00 07:32 Pulse 80 86 81 Resp 11 17 B/P (MAP) 110/72 (85) 138/77 (97) Pulse Ox 98 100 O2 Delivery Nasal Cannula Nasal Cannula Nasal Cannula O2 Flow Rate 2.00 2.00 2.00 07/19/18 07/19/18 07/19/18 07/19/18 08:00 08:00 08:00 09:00 Temp 98.0 Pulse 82 Resp 16 B/P (MAP) 132/75 (94) Pulse Ox 100 100 O2 Delivery Room Air Nasal Cannula Room Air O2 Flow Rate 2.00 07/19/18 07/19/18 07/19/18 07/19/18 12:00 12:00 14:00 16:00 Temp 98.2 Pulse 79 Resp 17 B/P (MAP) 136/80 (98) Pulse Ox 100 96 100 O2 Delivery Room Air Room Air Room Air 07/19/18 16:00 Temp 98.8 07/19/18 00:00 Intake Total 1800 ml Output Total 200 ml Balance 1600 ml Weight (Pounds): 215 Weight (Ounces): 3.0 Weight (Calculated Kilograms): 97.772697 Constitutional: AAO x 3, well-developed, well-nourished Respiratory: No accessory muscle use; other (Good bilat air entry, somewhat diminished at the bases) Cardiovascular: regular rate-rhythm, S1 and S2, systolic murmur (2/6 KARINA at card base) Gastrointestional: No tender; soft; No guarding, No rebound; audible bowel sounds, other (ventral abdominal hernia in the episgastrium, self-reducing) Extremities: No clubbing, No cyanosis, No significant edema Neurologic/Psychiatric: oriented x 3, grossly intact, power is 5/5 both on sides Skin: No rash on exposed areas, No ulcerations on exposed areas Results/Procedures: Labs Laboratory Tests 07/18/18 18:05: White Blood Count 5.7, Red Blood Count 4.92, Hemoglobin 12.7L, Hematocrit 39L, Mean Corpuscular Volume 80, Mean Corpuscular Hemoglobin 26, Mean Corpuscular Hemoglobin Concent 32, Red Cell Distribution Width 17.0H, Platelet Count 216, Mean Platelet Volume 10.1, Neutrophils (%) (Auto) 60, Lymphocytes (%) (Auto) 29, Monocytes (%) (Auto) 9, Eosinophils (%) (Auto) 1, Basophils (%) (Auto) 1, Neutrophils # (Auto) 3.4, Lymphocytes # (Auto) 1.7, Monocytes # (Auto) 0.5, Eosinophils # (Auto) 0.0, Basophils # (Auto) 0.0, Prothrombin Time 14.4, INR Comment 1.1, Activated Partial Thromboplast Time 29, Sodium Level 138, Potassium Level 4.1, Chloride Level 106, Carbon Dioxide Level 19L, Anion Gap 13, Blood Urea Nitrogen 16, Creatinine 1.77H, Estimat Glomerular Filtration Rate 38, BUN /Creatinine Ratio 9, Glucose Level 142H, Calcium Level 9.6, Corrected Calcium 9 .6, Magnesium Level 1.9, Total Bilirubin 0.7, Aspartate Amino Transf (AST/SGOT) 21, Alanine Aminotransferase (ALT/SGPT) 18, Alkaline Phosphatase 81, Total Creatine Kinase 183, Creatine Kinase MB 3.9, Myoglobin 149.5H, Troponin I 0.072H , B-Type Natriuretic Peptide 254.0H, Total Protein 6.5, Albumin 4.0, Amylase Level 126H, Lipase 37 07/19/18 03:00: White Blood Count 4.8, Red Blood Count 4.33L, Hemoglobin 11.2L, Hematocrit 35L, Mean Corpuscular Volume 80, Mean Corpuscular Hemoglobin 26, Mean Corpuscular Hemoglobin Concent 32, Red Cell Distribution Width 16.9H, Platelet Count 190, Mean Platelet Volume 9.9, Neutrophils (%) (Auto) 52, Lymphocytes (%) (Auto) 34, Monocytes (%) (Auto) 13H, Eosinophils (%) (Auto) 1, Basophils (%) (Auto) 1, Neutrophils # (Auto) 2.5, Lymphocytes # (Auto) 1.6, Monocytes # (Auto) 0.6, Eosinophils # (Auto) 0.1, Basophils # (Auto) 0.0, Sodium Level 140, Potassium Level 4.7, Chloride Level 110H, Carbon Dioxide Level 21, Anion Gap 9, Blood Urea Nitrogen 19H, Creatinine 1.59H, Estimat Glomerular Filtration Rate 43, BUN/Creatinine Ratio 12, Glucose Level 90, Calcium Level 8.5, Corrected Calcium 9.1, Magnesium Level 1.8, Total Bilirubin 0.4, Aspartate Amino Transf (AST/SGOT) 14, Alanine Aminotransferase (ALT/SGPT) 16, Alkaline Phosphatase 71, Total Protein 5.3L, Albumin 3.3, Triglycerides Level 58, Cholesterol Level 148, LDL Cholesterol Direct 91, VLDL Cholesterol 12, HDL Cholesterol 45, Thyroid Stimulating Hormone (TSH) 1.68 07/19/18 04:00: Urine Color YELLOW, Urine Clarity CLEAR, Urine pH 8, Urine Specific [place] 1.020, Urine Protein 2+H, Urine Glucose (UA) NEGATIVE, Urine Ketones NEGATIVE, Urine Nitrite NEGATIVE, Urine Bilirubin NEGATIVE, Urine Urobilinogen NORMAL, Urine Leukocyte Esterase 3+H, Urine RBC (Auto) 4+H, Urine RBC 10-25H, Urine WBC 50-100H, Urine Squamous Epithelial Cells NONE, Urine Crystals NONE, Urine [place] FEWH, Urine Casts NONE, Urine Mucus LARGEH, Urine Culture Indicated YES 07/19/18 10:19: Troponin I 0.155H Laboratory Tests 07/18/18 18:05 07/19/18 03:00 A/P: Assessment: Ac NSTEMI, but card cath of 07/18/18 did not show any acute lesions (all lesions appeared chronic; see below) CAD. H/o CABG in 2017: [place] to LAD, SVG to diag, SVG to OM1, SVG to OM2, SVG to PDA (Dr Fraser at [facility]) Card cath of 07/18/18: [place] coronary artery disease consisting of 60% to 70% mid LAD, 50% ostial D1, 70% ostial and long 70% mid vessel stenosis of LCX, and multiple up to 90% stenosis in the proximal and mid RCA. Occluded aortocoronary grafts to a diagonal, first obtuse marginal, second obtuse marginal. Patent aortocoronary graft to the distal right coronary artery. Patent left internal mammary artery graft to the distal left anterior descending. Left ventricular ejection fraction is estimated to be approximately 45%. Left ventricular end- diastolic pressure is normal. S/p dual chamber pacemaker for complete heart block, followed by Dr Santos Ischemic cardiomyopathy. LVEF 30-35% on echo August 2016. Pt has been noncompliant with ICD placement CKD 3-4 Chronic indwelling urinary catheter. Pt states he has never had a full w/u. Has catheter in place since 2012 Frequent UTI due to chronic indwelling catheter Epigastric hernia post sternotomy, recurrent post repair R inguinal hernia by history Plan: * Based on results card cath yesterday, med management appears reasonable * We are trying to optimize meds * Monitor labs closely * Medical Svce / Hospitalist consult for renal failure, UTI, and chronic urologic issues. I discussed her case with Dr Molina this am LUIS CARLOS MASON MD FACP FAC CCDS July 19, 2018 16:50
--- NOTE | 2018-07-19 17:40 | CONSULTATION REPORT ---
DATE OF SERVICE: 07/19/2018 ATTENDING PRIMARY RECEPTION CENTRE MANAGER: Xenia Madden APRN HISTORY OF PRESENT ILLNESS: The patient is a 72-year-old male who was admitted for sudden onset of chest pain with radiation towards the mid sternum back as well as shoulders and associated diaphoresis. He reports that this continued for approximately 2 hours. This gentleman does have a history of coronary artery disease and is status post open heart surgery as well as 4-vessel bypass. Upon examination, he did not report any palpitations or syncopal episodes nor any lower extremity edema. He does have chronic shortness of breath and he reports that this was not exacerbated. He did undergo a recent cardiac catheterization and again he does have a significant coronary artery disease with ejection fraction estimated to be approximately 35% in 08/2014. He is status post coronary artery bypass grafting, [place] to LAD, saphenous vein to diagonal and saphenous vein to obtuse marginal 1 as well as obtuse marginal 2 and saphenous vein to the posterior descending done by Dr. Fraser at [facility]. He has had epigastric hernia from his sternotomy incision that was repaired approximately two years ago. This has reoccurred. He reports that this is not symptomatic. Upon examination this is easily reducible and nontender to palpation. His chief complaint from a general surgical standpoint is a right groin hernia. He states that this has been around for the past few weeks and is painful and does cause significant discomfort. This is reducible; however, tender to palpation. He is otherwise eating well and having normal bowel movements. PAST MEDICAL HISTORY: Hypertension, hypercholesterolemia, coronary artery disease, atrial fibrillation, history of pulmonary embolism three months ago, hypercholesterolemia and BPH. PAST SURGICAL HISTORY: Coronary artery bypass grafting x4 vessels, epigastric hernia repair in 2017, pacemaker implantation. ALLERGIES: METOPROLOL AND RIVAROXABAN. MEDICATIONS: Eliquis 5 mg b.i.d., aspirin 81 mg daily, atorvastatin 20 mg daily, multivitamin daily, omeprazole 20 mg b.i.d. SOCIAL HISTORY: Negative smoke; however, exposed to secondhand smoke and occasional alcohol. FAMILY HISTORY: Mother some form of intra-abdominal cancer. Father, myocardial infarction, congestive heart failure and prostate cancer. Sister with stroke. VITAL SIGNS: Temperature 98.8, blood pressure 160/67, pulse 71, respirations 20, pulse ox 100% on room air. REVIEW OF SYSTEMS: GENERAL: Well-nourished male currently in no acute distress. He is not experiencing any shortness of breath or difficulty breathing. No chest pain, palpitations, diaphoresis. No nausea, vomiting, no diarrhea, or constipation. He does not report any history of peptic ulcer disease as well as no classic symptoms of reflux or regurgitation. He also does not report any hematemesis, no coffee ground emesis. No diarrhea, constipation, no red blood per rectum, no dark tarry stools. No fever, chills, no recent inadvertent weight loss. CHEST: few scattered rhales. HEART: regular, no murmurs. EXTREMITIES: No lower extremity edema. Negative Homans sign. HEENT: No scleral icterus. No cervical lymphadenopathy. ABDOMEN: Soft, nondistended. There is an easily reducible recurrent epigastric hernia, which he states is not painful. There is a reducible right inguinal hernia. It is reducible; however, tender to palpation. He is otherwise eating well. SKIN: Warm, dry. LABORATORY DATA: WBC 4.8, hemoglobin 11.2, hematocrit 35, platelets 190, BUN 19, creatinine 0.159. ASSESSMENT AND PLAN: A 72-year-old male with an episode of angina. He underwent a cardiac catheterization, which did show continue to mid vessel stenosis of the left anterior descending, 50% ostial stenosis of the first diagonal and 70% of the left circumflex. His ejection fraction is approximately a 45%. Based on these findings, the recommendation was to proceed with conservative management with a diet and exercise as well as anticoagulation. He did undergo a significant amount of contrast during the cardiac catheterization and did have develop some renal insufficiency postprocedure. He would like to have his right inguinal hernia repaired because it is symptomatic. However, the recommendation was to proceed with this as an outpatient. For now, we will just recommend no heavy lifting or exertion for the next several weeks. Once he is doing well and cleared by cardiology we will then proceed with a laparoscopic repair of the right inguinal hernia. Job ID: [id number] DocumentID: [id number] Dictated Date: 07/19/2018 17:05:58 Superintendent [employer] Date: 07/19/2018 17:39:20 Dictated By: HARDY ROACH MD [facility]
[2018-07-19] MEDS: ENALAPRIL 2.5 MG (VASOTEC) TAB PO SCH (20:34)
[2018-07-19] MEDS ORDERED: ATORVASTATIN 40 MG (LIPITOR) TABLET PO SCH (21:00)
[2018-07-20] MEDS: NS IV 1000 ML 1,000 ML IV SCH (02:41)
[2018-07-20 03:10] VITALS: BP 120/77
[2018-07-20 03:45] LABS: BASOPHILS # (AUTO) 0.1 10^3/uL (0.0-0.1); BASOPHILS % (AUTO) 1 % (0-10); EOSINOPHILS # (AUTO) 0.2 10^3/uL (0.0-0.3); EOSINOPHILS % (AUTO) 4 % (0-10); HEMATOCRIT 35 % (40-54); HEMOGLOBIN 11.3 G/DL (13.3-17.7); LYMPHOCYTES # (AUTO) 1.8 X 10^3 (1.0-4.0); LYMPHOCYTES % (AUTO) 32 % (12-44); MEAN CORPUSCULAR HEMOGLOBIN 26 PG (25-34); MEAN CORPUSCULAR HGB CONC 33 G/DL (32-36); MEAN CORPUSCULAR VOLUME 79 FL (80-99); MEAN PLATELET VOLUME 10.5 FL (7.4-10.4); MONOCYTES # (AUTO) 0.6 X 10^3 (0.0-1.0); MONOCYTES % (AUTO) 11 % (0-12); NEUTROPHILS # (AUTO) 2.9 X 10^3 (1.8-7.8); NEUTROPHILS % (AUTO) 53 % (42-75); PLATELET COUNT 191 10^3/uL (130-400); RED CELL DISTRIBUTION WIDTH 16.7 % (10.0-14.5); WHITE BLOOD COUNT 5.5 10^3/uL (4.3-11.0)
[2018-07-20 04:05] LABS: BUN/CREATININE RATIO 18; CALCIUM 8.8 MG/DL (8.5-10.1); CARBON DIOXIDE 19 MMOL/L (21-32); CHLORIDE 107 MMOL/L (98-107); CREATININE SERUM 0.97 MG/DL (0.60-1.30); GFR ESTIMATED > 60; GLUCOSE 79 MG/DL (70-105); MAGNESIUM 1.7 MG/DL (1.8-2.4); POTASSIUM 4.6 MMOL/L (3.6-5.0); SODIUM 135 MMOL/L (135-145)
[2018-07-20] MEDS: ASPIRIN 81 MG CHEW (CHILDREN'S ASA) PO SCH (07:57)
[2018-07-20] MEDS: CARVEDILOL 3.125 MG (COREG) TABLET PO SCH (07:57)
[2018-07-20] MEDS: ENALAPRIL 2.5 MG (VASOTEC) TAB PO SCH (07:57)
[2018-07-20] MEDS: APIXABAN 5 MG (ELIQUIS) TABLET PO SCH (07:57)
[2018-07-20 07:58] VITALS: BP 136/83
--- NOTE | 2018-07-20 08:39 | Progress Note-Hospitalist ---
Subjective HPI/CC On Admission Date Seen by Provider: July 20, 2018 Time Seen by Provider: 08:45 Chief complaint: Chest pain HPI: This is a 72yoWM s/p cardiac catheterization that showed no evidence of any stenosis who had elevated troponin but having epigastric pain requiring Dr. Sebastian consultation. He recently had an EGD last year. He lives alone and is maintained with a solo catheter and refuses to see Dr. Yost urology consultation here at [facility]. He was scheduled to have a renal ultrasound on July 06 but that w ill need to be rescheduled. There is no evidence of the need to treat chronic UTI since he has pseudomonas and that will continue to be a bacteria in his bladder but that will continue because of the solo catheter maintenance. Subjective/Events-last exam Pt is doing well DC as planned Dr. Sebastian will repair the inguinal hernia at a different time Maintaining Solo catheter and refuses to see Urology Pseudomonas is colonized and does not need treatment Ready for DC Review of Systems General: Fatigue Objective Exam Vital Signs Vital Signs Date Time Temp Pulse Resp B/P (MAP) Pulse Ox O2 Delivery O2 Flow Rate FiO2 07/20/18 10:19 07/20/18 09:00 98 Room Air 07/20/18 07:58 97.0 82 16 07/19/18 08:00 2.00 Capillary Refill : Less Than 3 Seconds General Appearance: No Apparent Distress, WD/WN, Chronically ill HEENT: PERRL/EOMI, Normal ENT Inspection, Pharynx Normal Neck: Full Range of Motion, Normal Inspection, Non Tender, Supple, Carotid Bruit Respiratory: Chest Non Tender, Lungs Clear, Normal Breath Sounds, No Accessory Muscle Use, No Respiratory Distress Cardiovascular: Regular Rate, Rhythm, No Edema, No Gallop, No JVD, No Murmur, Normal Peripheral Pulses Gastrointestinal: Normal Bowel Sounds, No Organomegaly, No Pulsatile Mass, Non Tender, Soft Back: Normal Inspection, No CVA Tenderness, No Vertebral Tenderness Extremity: Normal Capillary Refill, Normal Inspection, Normal Range of Motion, Non Tender, No Calf Tenderness, No Pedal Edema Neurologic/Psychiatric: Alert, Oriented x3, No Motor/Sensory Deficits, Normal Mood/Affect Skin: Normal Color, Warm/Dry Lymphatic: No Adenopathy Results/Procedures Lab Laboratory Tests 07/20/18 03:05 Patient resulted labs reviewed. Assessment/Plan Assessment and Plan Assess & Plan/Chief Complaint Assessment: CP Elevated troponin Chronic UTI no evidence of needing antibiotic coverage with chronic UTI due to in-dwelling catheter and refuses to see Dr Yost Urology CRI GERD Plan: Monitor clinical status No abx required he is colonized with Pseudomonas Home meds Dr Sebastian consultation is appreciated DC home Diagnosis/Problems Diagnosis/Problems (1) Chest pain Status: Acute Qualifiers: Chest pain type: chest pain on breathing Qualified Codes: R07.1 - Chest pain on breathing (2) Troponin level elevated Status: Acute (3) Elevated brain natriuretic peptide (BNP) level Status: Acute (4) GERD (gastroesophageal reflux disease) Status: Chronic Qualifiers: Esophagitis presence: esophagitis presence not specified Qualified Codes: K21.9 - Gastro-esophageal reflux disease without esophagitis (5) Pseudomonas aeruginosa colonization Status: Chronic (6) CAD (coronary artery disease) of bypass graft Status: Chronic Qualifiers: [place] vs. transplanted heart: [place] heart Associated angina: without angina Qualified Codes: I25.810 - Atherosclerosis of coronary artery bypass graft(s) without angina pectoris (7) Renal insufficiency Status: Chronic (8) Microcytic anemia Status: Chronic (9) Indwelling catheter present on admission Status: Chronic (10) BPH (benign prostatic hyperplasia) Status: Chronic Qualifiers: Lower urinary tract symptom presence: symptoms present Lower urinary tract symptom detail: urinary frequency Qualified Codes: N40.1 - Benign prostatic hyperplasia with lower urinary tract symptoms; R35.0 - Frequency of micturition (11) Essential (primary) hypertension Status: Chronic Clinical Quality Measures DVT/VTE Risk/Contraindication: Risk Factor Score Per Nursin RFS Level Per Nursing on Admit: 4+=Very High DEBBIE HOPPER DO July 20, 2018 08:39
--- NOTE | 2018-07-20 09:03 | Progress Note-Cardiology ---
Cardiology SOAP Progress Note Subjective: Sitting up in bed. States he is ready to go home. Has been up ambulating in the halls. No c/o CP, palpitations, syncope, dyspnea or near syncope. Wants to go home. Objective: I&O/Vital Signs 07/20/18 07/20/18 07/20/18 07/20/18 01:00 03:10 03:10 07:00 Temp 97.5 Pulse 80 82 80 Resp 16 B/P (MAP) 120/77 (91) Pulse Ox 94 94 O2 Delivery Room Air Room Air 07/20/18 07/20/18 07/20/18 07/20/18 07:58 08:00 09:00 10:19 Temp 97.0 Pulse 82 Resp 16 B/P (MAP) 136/83 (100) Pulse Ox 96 94 98 O2 Delivery Room Air Room Air Room Air 07/20/18 00:00 Intake Total 1400 ml Output Total 1375 ml Balance 25 ml Weight (Pounds): 205 Weight (Ounces): 3.0 Weight (Calculated Kilograms): 93.292342 Constitutional: AAO x 3, well-developed, well-nourished Respiratory: No accessory muscle use; other (Good bilat air entry, somewhat diminished at the bases) Cardiovascular: regular rate-rhythm, S1 and S2, systolic murmur (2/6 KARINA at card base) Gastrointestional: No tender; soft; No guarding, No rebound; audible bowel sounds, other (ventral abdominal hernia in the episgastrium, self-reducing) Genital/Rectal: other (Indwelling urinary catheter with cloudy, yellow urine) Extremities: No clubbing, No cyanosis, No significant edema Neurologic/Psychiatric: oriented x 3, grossly intact, power is 5/5 both on sides Skin: No rash on exposed areas, No ulcerations on exposed areas Results/Procedures: Labs Laboratory Tests 07/20/18 03:05: White Blood Count 5.5, Red Blood Count 4.39, Hemoglobin 11.3L, Hematocrit 35L, Mean Corpuscular Volume 79L, Mean Corpuscular Hemoglobin 26, Mean Corpuscular Hemoglobin Concent 33, Red Cell Distribution Width 16.7H, Platelet Count 191, Mean Platelet Volume 10.5H, Neutrophils (%) (Auto) 53, Lymphocytes (%) (Auto) 32, Monocytes (%) (Auto) 11, Eosinophils (%) (Auto) 4, Basophils (%) (Auto) 1, Neutrophils # (Auto) 2.9, Lymphocytes # (Auto) 1.8, Monocytes # (Auto) 0.6, Eosinophils # (Auto) 0.2, Basophils # (Auto) 0.1, Sodium Level 135, Potassium Level 4.6, Chloride Level 107, Carbon Dioxide Level 19L, Anion Gap 9, Blood Urea Nitrogen 17, Creatinine 0.97, Estimat Glomerular Filtration Rate > 60, BUN/Creatinine Ratio 18, Glucose Level 79, Calcium Level 8.8, Magnesium Level 1.7L Microbiology 07/19/18 Urine Culture - Preliminary, Resulted Gram Negative Bacillus 1 Mixed Bacterial Aubree With A/P: Assessment: Ac NSTEMI, but card cath of 07/18/18 did not show any acute lesions (all lesions appeared chronic; see below) CAD. H/o CABG in 2017: GILLESPIE to LAD, SVG to diag, SVG to OM1, SVG to OM2, SVG to PDA (Dr Fraser at [facility]) Card cath of 07/18/18: [place] coronary artery disease consisting of 60% to 70% mid LAD, 50% ostial D1, 70% ostial and long 70% mid vessel stenosis of LCX, and multiple up to 90% stenosis in the proximal and mid RCA. Occluded aortocoronary grafts to a diagonal, first obtuse marginal, second obtuse marginal. Patent aortocoronary graft to the distal right coronary artery. Patent left internal mammary artery graft to the distal left anterior descending. Left ventricular ejection fraction is estimated to be approximately 45%. Left ventricular end- diastolic pressure is normal. S/p dual chamber pacemaker for complete heart block, followed by Dr Santos Ischemic cardiomyopathy. LVEF 30-35% on echo August 2016. Pt has been noncompliant with ICD placement CKD 3-4 Chronic indwelling urinary catheter. Pt states he has never had a full w/u. Has catheter in place since 2012 Frequent UTI due to chronic indwelling catheter - colonized pseudomonas per Dr Zion bennett Epigastric hernia post sternotomy, recurrent post repair R inguinal hernia by history - Dr. Sebastian following - out pt repair Plan: * Based on results card cath yesterday, med management appears reasonable * Continue current medication regimen * Lab as an out pt * Appreciate Dr. Molina's assist - urince showing pseudomonas, colonized * Appreciate Dr. Sebastian's assist - inguinal hernia repair as an out pt * Discussed importance of compliance with medications and f/u - verbalizes understanding Physician Assessment Physician Assessment No cp or palp or syncope. Chronic mild to mod shortness of breath Lungs: good bilat air entry Cor: reg Ext: no c/c/e A&R * As documented in our note above that I updated (italics) and as noted below * Close outpt f/u advised * Risk factor mod reviewed and med compliance advised * Advised to return to ER in case of recurrent or new symptoms OPHELIA HUNTER BOILING HOUSE OILER July 20, 2018 09:03 LUIS CARLOS MASON MD FACP FAC CCDS July 20, 2018 12:14
[2018-07-20] MEDS ORDERED: ASPI-999 PO (09:06)
[2018-07-20] MEDS ORDERED: ENAL2.5T PO (09:06)
[2018-07-20] MEDS ORDERED: ATOR40TA PO (09:06)
[2018-07-20] MEDS ORDERED: CARV3.122 PO (09:06)
--- NOTE | 2018-07-20 09:07 | Discharge Inst-Cardiology ---
Discharge Inst-Cardiac Discharge Medications New Medications: Aspirin (Aspirin) 81 Mg Tab.chew 81 MG PO DAILY, #30 TAB 5 Refills Atorvastatin Calcium (Lipitor) 40 Mg Tablet 40 MG PO HS, #30 TAB 4 Refills Carvedilol (Carvedilol) 3.125 Mg Tablet 3.125 MG PO BID, #60 TAB 5 Refills Enalapril Maleate (Enalapril Maleate) 2.5 Mg Tablet 2.5 MG PO BID, #60 TAB 5 Refills Continued Medications: Apixaban (Eliquis) 5 Mg Tablet 5 MG PO BID, #72 TAB Levofloxacin (Levaquin) 500 Mg Tablet 500 MG PO DAILY, #5 TAB Multivitamin (Daily Multiple Vitamin) 1 Each Tablet 1 TAB PO DAILY, TAB [place] 3 Polyunsat Fatty Acids (Fish Oil 1,000 mg Capsule) 1,000 Mg Cap 1000 MG PO DAILY, CAP Omeprazole (Omeprazole) 20 Mg Capsule.dr 20 MG PO BID, CAP Discontinued Medications: Aspirin (Aspirin EC) 81 Mg Tablet.dr 81 MG PO DAILY, #30 TAB Atorvastatin Calcium (Atorvastatin Calcium) 20 Mg Tablet 20 MG PO HS, #30 TAB New, Converted or Re-Newed RX: Transmitted to Pharmacy Patient Instructions Patient Instructions: Lab: BMP in 2 weeks Please schedule follow up appointment to see Dr. Sullivan in 2 weeks OPHELIA HUNTER July 20, 2018 09:07
--- NOTE | 2018-07-20 10:15 | Cardiology Discharge Summary ---
Diagnosis/Chief Complaint Date of Admission July 18, 2018 at 21:19 Date of Discharge 07-20-18 Admission Diagnosis Ac NSTEMI with continuing chest pain CAD. H/o CABG in 2017: GILLESPIE to LAD, SVG to diag, SVG to OM1, SVG to OM2, SVG to PDA (Dr Fraser at [facility]) S/p dual chamber pacemaker for complete heart block, followed by Dr Santos Ischemic cardiomyopathy. LVEF 30-35% on echo August 2016. Pt has been noncompliant with ICD placement CKD 3-4 Chronic indwelling urinary catheter. Pt states he has never had a full w/u. Has catheter in place since 2012 Frequent UTI due to chronic indwelling catheter Epigastric hernia post sternotomy, recurrent post repair R inguinal hernia by history Final/Discharge Diagnosis Ac NSTEMI, but card cath of 07/18/18 did not show any acute lesions (all lesions appeared chronic; see below) CAD. H/o CABG in 2017: GILLESPIE to LAD, SVG to diag, SVG to OM1, SVG to OM2, SVG to PDA (Dr Fraser at [facility]) Card cath of 07/18/18: [place] coronary artery disease consisting of 60% to 70% mid LAD, 50% ostial D1, 70% ostial and long 70% mid vessel stenosis of LCX, and multiple up to 90% stenosis in the proximal and mid RCA. Occluded aortocoronary grafts to a diagonal, first obtuse marginal, second obtuse marginal. Patent aortocoronary graft to the distal right coronary artery. Patent left internal mammary artery graft to the distal left anterior descending. Left ventricular ejection fraction is estimated to be approximately 45%. Left ventricular end- diastolic pressure is normal. S/p dual chamber pacemaker for complete heart block, followed by Dr Santos Ischemic cardiomyopathy. LVEF 30-35% on echo August 2016. Pt has been noncompliant with ICD placement CKD 3-4 Chronic indwelling urinary catheter. Pt states he has never had a full w/u. Has catheter in place since 2012 Frequent UTI due to chronic indwelling catheter - colonized pseudomonas per Dr Molina Epigastric hernia post sternotomy, recurrent post repair R inguinal hernia by history - Dr. Sebastian following - out pt repair Chief Complaint/HPI Chief Complaint/HPI CC: Chest pain HPI: 72 yo man with known CAD and other comorbidities (see below) who presents with chest pain of sudden onset while at dinner. Pain is a severe pressure in the mid sternum radiating to the back and shoulders and associated with some diaphoresis, continuous for nearly 2 hours prior to presentation, still present, without aggravating or relieving factors. Has had similar symptoms for a few days prior to presentation, lasting for several minutes, but is severer and unr esolving today. Does not report palp or syncope or leg swelling. Has chronic shortness of breath Discharge Summary Procedures Please refer to cardiac cath report of 07-19-[address] Sullivan Discharge Physical Examination Please refer to progress note of 07-20-18 Hospital Course Pending Labs Discussion & Recommendations Discussion Based on results card cath yesterday, med management appears reasonable Continue current medication regimen Lab as an out pt Appreciate Dr. Molina's assist - urine showing pseudomonas, colonized Appreciate Dr. Sebastian's assist - inguinal hernia repair as an out pt Discussed importance of compliance with medications and f/u - verbalizes understanding Follow up appt.: Follow up appointment with Dr. Sullivan in 2 weeks Lab: BMP in 2 weeks, prior to follow up appointment Home Medications Reviewed patient Home Medication Reconciliation performed by pharmacy medication reconciliations two way radio technician and/or nursing. Patients Allergies have been reviewed. Discharge Home Medications: Discharge Medications New Medications: Aspirin (Aspirin) 81 Mg Tab.chew 81 MG PO DAILY, #30 TAB 5 Refills Atorvastatin Calcium (Lipitor) 40 Mg Tablet 40 MG PO HS, #30 TAB 4 Refills Carvedilol (Carvedilol) 3.125 Mg Tablet 3.125 MG PO BID, #60 TAB 5 Refills Enalapril Maleate (Enalapril Maleate) 2.5 Mg Tablet 2.5 MG PO BID, #60 TAB 5 Refills Continued Medications: Apixaban (Eliquis) 5 Mg Tablet 5 MG PO BID, #72 TAB Levofloxacin (Levaquin) 500 Mg Tablet 500 MG PO DAILY, #5 TAB Multivitamin (Daily Multiple Vitamin) 1 Each Tablet 1 TAB PO DAILY, TAB [place] 3 Polyunsat Fatty Acids (Fish Oil 1,000 mg Capsule) 1,000 Mg Cap 1000 MG PO DAILY, CAP Omeprazole (Omeprazole) 20 Mg Capsule. 20 MG PO BID, CAP Discontinued Medications: Aspirin (Aspirin EC) 81 Mg Tablet. 81 MG PO DAILY, #30 TAB Atorvastatin Calcium (Atorvastatin Calcium) 20 Mg Tablet 20 MG PO HS, #30 TAB Clinical Quality Measures DVT/VTE Risk/Contraindication: Risk Factor Score Per Nursin RFS Level Per Nursing on Admit: 4+=Very High OPHELIA HUNTER [employer]PER[employer] July 20, 2018 10:15 LUIS CARLOS SULLIVAN MD FACP FAC CCDS July 20, 2018 12:24
[2018-07-21] MEDS ORDERED: FAMO-119 PO (20:21)
[2018-07-21] MEDS ORDERED: OMEP40CA36 PO (20:21)
[2018-07-21] MEDS ORDERED: ISOS30TA3 PO (20:21)
[2018-07-21] MEDS ORDERED: CEFD300C3 PO (20:27)
== END 2018-07-20 10:22 | disposition home or self-care (01) | DRG 281 ==
LOC: EDUNIT# 18:00 → ER 18:01 → CATH 19:00 → ICU 21:19
PROVIDERS: ADMIT Internal Medicine Cardiovascular Disease; ATTEND Internal Medicine Cardiovascular Disease
PROC: 4A023N7 Measurement of Cardiac Sampling and Pressure, Left Heart, Percutaneous Approach (ICD-10-PCS; principal; 2018-07-18)
PROC: B2131ZZ Fluoroscopy of Multiple Coronary Artery Bypass Grafts using Low Osmolar Contrast (ICD-10-PCS; 2018-07-18)
PROC: B2151ZZ Fluoroscopy of Left Heart using Low Osmolar Contrast (ICD-10-PCS; 2018-07-18)
PROC: B2181ZZ Fluoroscopy of Left Internal Mammary Bypass Graft using Low Osmolar Contrast (ICD-10-PCS; 2018-07-18)
PROC: B2111ZZ Fluoroscopy of Multiple Coronary Arteries using Low Osmolar Contrast (ICD-10-PCS; 2018-07-18)
PROC: B3101ZZ Fluoroscopy of Thoracic Aorta using Low Osmolar Contrast (ICD-10-PCS; 2018-07-18)
PROC: B51B1ZZ Fluoroscopy of Right Lower Extremity Veins using Low Osmolar Contrast (ICD-10-PCS; 2018-07-18)
DX: I21.4 Non-ST elevation (NSTEMI) myocardial infarction (principal); I25.810 Atherosclerosis of coronary artery bypass graft(s) without angina pectoris; I12.9 Hypertensive chronic kidney disease with stage 1 through stage 4 chronic kidney disease, or unspecified chronic kidney disease; N18.4 Chronic kidney disease, stage 4 (severe); I25.5 Ischemic cardiomyopathy; T83.511A Infection and inflammatory reaction due to indwelling urethral catheter, initial encounter; N39.0 Urinary tract infection, site not specified; I25.10 Atherosclerotic heart disease of native coronary artery without angina pectoris; K40.90 Unilateral inguinal hernia, without obstruction or gangrene, not specified as recurrent; B96.5 Pseudomonas (aeruginosa) (mallei) (pseudomallei) as the cause of diseases classified elsewhere; K21.9 Gastro-esophageal reflux disease without esophagitis; D50.9 Iron deficiency anemia, unspecified; N40.1 Benign prostatic hyperplasia with lower urinary tract symptoms; R35.0 Frequency of micturition; E78.00 Pure hypercholesterolemia, unspecified; I48.91 Unspecified atrial fibrillation; N28.9 Disorder of kidney and ureter, unspecified; K59.09 Other constipation; N31.9 Neuromuscular dysfunction of bladder, unspecified; I44.7 Left bundle-branch block, unspecified; Z95.0 Presence of cardiac pacemaker; Z95.1 Presence of aortocoronary bypass graft; Z77.22 Contact with and (suspected) exposure to environmental tobacco smoke (acute) (chronic); Z86.711 Personal history of pulmonary embolism; Z86.718 Personal history of other venous thrombosis and embolism; Z80.42 Family history of malignant neoplasm of prostate; Z79.01 Long term (current) use of anticoagulants
CPT/HCPCS: 36415; 71045; 80048; 80053; 80061; 81000; 82150; 82550; 82553; 83690; 83735; 83874; 83880; 84443; 84484; 85025; 85610; 85730; 87077; 87088; 87186; 93005; 93041; 93306; 93459; 96374

== ENCOUNTER 2018-07-21 15:50 | Emergency (ER) | payer MEDICARE ==
[~2018-07-21] VITALS: Ht 180.3 cm; Wt 93.9 kg
[~2018-07-21 15:50] MED LIST changes: +ASPI-999 PO; +ATOR40TA PO; +ENAL2.5T PO
[2018-07-21] MEDS ORDERED: morphine INJ 10 MG/ML 1ML (SYR OR VIAL) IVP STA ×2 (15:58→17:41)
[2018-07-21] MEDS ORDERED: NS IV 1000 ML 1,000 ML IV ONE (16:00)
[2018-07-21 16:06] LABS: BASOPHILS % (AUTO) 0 % (0-10); EOSINOPHILS % (AUTO) 0 % (0-10); HEMATOCRIT 36 % (40-54); HEMOGLOBIN 11.8 G/DL (13.3-17.7); LYMPHOCYTES # (AUTO) 0.8 X 10^3 (1.0-4.0); LYMPHOCYTES % (AUTO) 8 % (12-44); MEAN CORPUSCULAR HEMOGLOBIN 26 PG (25-34); MEAN CORPUSCULAR HGB CONC 33 G/DL (32-36); MEAN CORPUSCULAR VOLUME 78 FL (80-99); MEAN PLATELET VOLUME 10.3 FL (7.4-10.4); MONOCYTES # (AUTO) 0.8 X 10^3 (0.0-1.0); MONOCYTES % (AUTO) 8 % (0-12); NEUTROPHILS # (AUTO) 8.1 X 10^3 (1.8-7.8); NEUTROPHILS % (AUTO) 83 % (42-75); PLATELET COUNT 211 10^3/uL (130-400); RED CELL DISTRIBUTION WIDTH 16.7 % (10.0-14.5); WHITE BLOOD COUNT 9.7 10^3/uL (4.3-11.0)
[2018-07-21 16:17] LABS: INR 1.1 (0.8-1.4); PROTHROMBIN TIME PATIENT 14.5 SEC (12.2-14.7)
--- NOTE | 2018-07-21 16:21 | Diagnostic Imaging Report ---
INDICATION: Shortness of breath and chest pain. Frontal chest obtained at 04:06 p.m. and compared to 07/18/2018. There is post sternotomy change. Pacemaker device is unchanged. The heart is borderline in size. There is mild central vascular prominence. There is no focal infiltrate, pneumothorax, or pleural fluid. The study is limited by poor inspiration. IMPRESSION: Postop changes with mild central vascular prominence. Poor inspiration. No acute change compared with 07/18/2018. Dictated by: Dictated on workstation # [id number]
[2018-07-21 16:25] LABS: ALBUMIN 4.1 GM/DL (3.2-4.5); BILIRUBIN,TOTAL 0.7 MG/DL (0.1-1.0); CALCIUM 9.6 MG/DL (8.5-10.1); CREATININE SERUM 1.29 MG/DL (0.60-1.30); MAGNESIUM 1.8 MG/DL (1.8-2.4); POTASSIUM 4.2 MMOL/L (3.6-5.0); TOTAL PROTEIN 6.8 GM/DL (6.4-8.2)
--- NOTE | 2018-07-21 16:28 | ED Chest Pain ---
General Chief Complaint: Chest Pain Stated Complaint: CP Nursing Triage Note: PATIENT HERE BY EMS AFTER BACK AND CHEST PAIN THAT RECURRED TODAY. HE WAS HERE EARLIER THIS WEEK WITH THE SAME PAIN, HAD A HEART CATH THAT DID NOT REQUIRE INTERVENTION AND WAS DISCHARGED HOME. Nursing Sepsis Screen: No Definite Risk Source: patient, EMS, old records Exam Limitations: no limitations History of Present Illness Date Seen by Provider: July 21, 2018 Time Seen by Provider: 15:53 Initial Comments This 72-year-old gentleman presents to the emergency room via EMS with complaints of chest and back pain. He reports the pain as 10 out of 10. The pain in his back is rather diffuse and started this morning. The pain in his chest started about a hour prior to arrival. Movement and breathing intensifies the pain. Patient had been admitted to the hospital for cardiac assessment on July 18. He had cardiac angiography on July 19. He was discharged yesterday. He takes Eliquis. He does have history of pulmonary embolus and coronary artery disease. No interventions were performed during his recent angiography. EMS administered 50 g of fentanyl by IV route which did not seem to improve his pain much. Allergies and Home Medications Allergies Coded Allergies: metoprolol (Unverified Allergy, Unknown, 09/18/14) "sunburn" rivaroxaban (Unverified Allergy, Unknown, 12/18/14) VOMITING/DIARRHEA Home Medications Apixaban 5 Mg Tablet, 5 MG PO BID Prescribed by: PHANI VILLA on 03/12/18 1634 Aspirin 81 Mg Tab.chew, 81 MG PO DAILY Prescribed by: OPHELIA HUNTER on 07/20/18905 Atorvastatin Calcium 40 Mg Tablet, 40 MG PO HS Prescribed by: OPHELIA HUNTER on 07/20/18905 Carvedilol 3.125 Mg Tablet, 3.125 MG PO BID Prescribed by: OPHELIA HUNTER on 07/20/18905 Cefdinir 300 Mg Capsule, 300 MG PO BID Prescribed by: VJ WIN on 07/21/182026 Enalapril Maleate 2.5 Mg Tablet, 2.5 MG PO BID Prescribed by: OPHELIA HUNTER on 07/20/18905 Famotidine 20 Mg Tablet, 20 MG PO BID Prescribed by: VJ WIN on 07/21/182020 Isosorbide Mononitrate 30 Mg Tab.er.24h, 30 MG PO DAILY Prescribed by: VJ WIN on 07/21/182020 Levofloxacin 500 Mg Tablet, 500 MG PO DAILY Prescribed by: VJ WIN on 03/08/18 1411 Multivitamin 1 Each Tablet, 1 TAB PO DAILY, (Reported) Dana 3 Polyunsat Fatty Acids 1,000 Mg Cap, 1,000 MG PO DAILY, (Reported) Omeprazole 20 Mg Capsule.dr, 20 MG PO BID, (Reported) Omeprazole 40 Mg Capsule.dr, 40 MG PO DAILY Prescribed by: VJ WIN on 07/21/182020 Patient Home Medication List Home Medication List Reviewed: Yes Review of Systems Review of Systems Constitutional: no symptoms reported EENTM: No Symptoms Reported Respiratory: See HPI Cardiovascular: See HPI Gastrointestinal: No Symptoms Reported Genitourinary: No Symptoms Reported Musculoskeletal: see HPI Skin: no symptoms reported Psychiatric/Neurological: No Symptoms Reported Endocrine: No Symptoms Reported Hematologic/Lymphatic: No Symptoms Reported Past Nxpocae-Ymryus-Hutwwu Hx Patient Social History Alcohol Beverage of Choice: Beer Drug of Choice: distant past history of marijuana use 2nd Hand Smoke Exposure: Yes (Father was a heavy smoker in his youth) Recent Foreign Travel: No Contact w/Someone Who Travel: No Recent Infectious Disease Expo: No Recent Hopitalizations: No Immunizations Up To Date Tetanus Booster (TDap): Unknown PED Vaccines UTD: Yes Date of Pneumonia Vaccine: Feb 28, 2013 Date of Influenza Vaccine: Dec 27, 2016 Seasonal Allergies Seasonal Allergies: No Past Medical History Surgeries: Yes (colonoscopy, EGD) Abdominal, CABG, Eye Surgery, Pacemaker, Vascular Surgery Respiratory: Yes Pneumonia, Pulmonary Embolism Currently Using CPAP: No Currently Using BIPAP: No Cardiac: Yes Atrial Fibrillation, Cardiomyopathy, Coronary Artery Disease, Deep Vein Thrombosis, Heart Murmur, High Cholesterol, Hypertension, Irregular Heartbeat Neurological: No Reproductive Disorders: No Sexually Transmitted Disease: No HIV/AIDS: No Genitourinary: Yes (chronic solo) Benign Prostatic Hyperpl, Kidney Infection, Bladder Infection, Neurogenic Bladder Gastrointestinal: Yes Gastroesophageal Reflux, Chronic Constipation Musculoskeletal: Yes (L hip fx, right ankle broken) Fractures Endocrine: No HEENT: Yes Cataract Loss of Vision: Denies Hearing Impairment: Denies Cancer: No Psychosocial: No Integumentary: No Blood Disorders: Yes Adverse Reaction/Blood Tranf: No Family Medical History Cancer (LINING OF ABD CAVITY, AT AGE 80) 03 MOTHER Chest pain (FATHER OF [place] AT AGE 83) 03 FATHER Congestive heart failure 03 FATHER Family history: Arthritis 03 MOTHER, Onset:60 years & older Family history: Cardiovascular disease 03 FATHER Heart disease 03 FATHER Hypercholesterolemia 03 FATHER 03 MOTHER Myocardial infarction 03 FATHER Prostate cancer (DIAGNOSED AT 72 OR 73 PER PT) 03 FATHER Stroke 09 SISTER Visual impairment (SISTER WEARS GLASSES ) 09 SISTER No Family History of: Abdominal aortic aneurysm Lincoln's disease Alcoholism Aphasia Cancer of colon Cataract Congenital heart disease Cystic fibrosis Dementia Dysphagia Family history: Allergy Family history: Alzheimer's disease Family history: Asthma Family history: Breast disease Family history: Coronary thrombosis Family history: Diabetes mellitus Family history: Gastrointestinal disease Family history: Glaucoma Family history: Hypertension Family history: Osteoporosis Family history: Thyroid disorder Headache Hearing loss Hereditary disease History of - anemia History of - disorder History of - respiratory disease History of drug abuse Human immunodeficiency virus (HIV) seropositivity Infertile Kidney disease Malignant neoplasm of lung Parkinson's disease Psychotic disorder Seizure disorder Tuberculosis Cancer, CAD Over 55 Years Old, CVA Physical Exam Vital Signs Vital Signs - First Documented 07/21/18 15:50 Temp 98.2 Pulse 83 Resp 20 B/P (MAP) 169/92 (117) Pulse Ox 99 Capillary Refill : Less Than 3 Seconds Height, Weight, BMI Height: 0'71.00" Weight: 207lbs. 0oz. 93.982678gy; 29.9 BMI Method:Actual General Appearance: WD/WN, Moderate Distress HEENT: PERRL/EOMI, Normal ENT Inspection Neck: Normal Inspection Respiratory: Lungs Clear, Normal Breath Sounds, No Accessory Muscle Use, No Respiratory Distress Cardiovascular: Regular Rate, Rhythm, No Murmur, Other (mild lower extremity edema equal bilaterally) Gastrointestinal: Normal Bowel Sounds, Soft, Tenderness (lower central abdomen) Extremity: Normal Inspection, Non Tender, Pedal Edema Neurologic/Psychiatric: Alert, Oriented x3, No Motor/Sensory Deficits, Normal Mood/Affect, unit aid II-XII Norm as Tested Skin: Normal Color, Warm/Dry Progress/Results/Core Measures Results/Orders Lab Results Laboratory Tests Test 07/21/18 15:58 07/21/18 17:15 07/21/18 18:56 Range/Units White Blood Count 9.7 4.3-11.0 10^3/uL Red Blood Count 4.59 4.35-5.85 10^6/uL Hemoglobin 11.8 L 13.3-17.7 G/DL Hematocrit 36 L 40-54 % Mean Corpuscular Volume 78 L 80-99 FL Mean Corpuscular Hemoglobin 26 25-34 PG Mean Corpuscular Hemoglobin Concent 33 32-36 G/DL Red Cell Distribution Width 16.7 H 10.0-14.5 % Platelet Count 211 130-400 10^3/uL Mean Platelet Volume 10.3 7.4-10.4 FL Neutrophils (%) (Auto) 83 H 42-75 % Lymphocytes (%) (Auto) 8 L 12-44 % Monocytes (%) (Auto) 8 0-12 % Eosinophils (%) (Auto) 0 0-10 % Basophils (%) (Auto) 0 0-10 % Neutrophils # (Auto) 8.1 H 1.8-7.8 X 10^3 Lymphocytes # (Auto) 0.8 L 1.0-4.0 X 10^3 Monocytes # (Auto) 0.8 0.0-1.0 X 10^3 Eosinophils # (Auto) 0.0 0.0-0.3 10^3/uL Basophils # (Auto) 0.0 0.0-0.1 10^3/uL Prothrombin Time 14.5 12.2-14.7 SEC INR Comment 1.1 0.8-1.4 Activated Partial Thromboplast Time 31 24-35 SEC Sodium Level 131 L 135-145 MMOL/L Potassium Level 4.2 3.6-5.0 MMOL/L Chloride Level 100 98-107 MMOL/L Carbon Dioxide Level 24 21-32 MMOL/L Anion Gap 7 5-14 MMOL/L Blood Urea Nitrogen 16 7-18 MG/DL Creatinine 1.29 0.60-1.30 MG/DL Estimat Glomerular Filtration Rate 54 BUN/Creatinine Ratio 12 Glucose Level 149 H 70-105 MG/DL Calcium Level 9.6 8.5-10.1 MG/DL Corrected Calcium 9.5 8.5-10.1 MG/DL Magnesium Level 1.8 1.8-2.4 MG/DL Total Bilirubin 0.7 0.1-1.0 MG/DL Aspartate Amino Transf (AST/SGOT) 14 5-34 U/L Alanine Aminotransferase (ALT/SGPT) 14 0-55 U/L Alkaline Phosphatase 82 40-136 U/L Myoglobin 67.3 10.0-92.0 NG/ML Troponin I 0.159 H 0.145 H <0.028 NG/ML Total Protein 6.8 6.4-8.2 GM/DL Albumin 4.1 3.2-4.5 GM/DL Urine Color STRAW Urine Clarity SLIGHTLY CLOUDY Urine pH 6.5 5-9 Urine Specific [place] 1.005 L 1.016-1.022 Urine Protein 2+ H NEGATIVE Urine Glucose (UA) NEGATIVE NEGATIVE Urine Ketones NEGATIVE NEGATIVE Urine Nitrite POSITIVE H NEGATIVE Urine Bilirubin NEGATIVE NEGATIVE Urine Urobilinogen NORMAL NORMAL MG/DL Urine Leukocyte Esterase 3+ H NEGATIVE Urine RBC (Auto) 4+ H NEGATIVE Urine RBC >100 H /HPF Urine WBC TNTC H /HPF Urine Squamous Epithelial Cells NONE /HPF Urine Crystals NONE /LPF Urine Bacteria LARGE H /HPF Urine Casts NONE /LPF Urine Mucus MODERATE H /LPF Urine Culture Indicated YES Lipase 34 8-78 U/L My Orders Orders - VJ EDWARD MD Cbc With Automated Diff (07/21/18 15:57) Magnesium (07/21/18 15:57) Chest 1 View, Ap/Pa Only (07/21/18 15:57) Ekg Tracing (07/21/18 15:57) Cardiac Profile 1 (07/21/18 15:57) Comprehensive Metabolic Panel (07/21/18 15:57) Myoglobin Serum (07/21/18 15:57) Protime With Inr (07/21/18 15:57) Partial Thromboplastin Time (07/21/18 15:57) O2 (07/21/18 15:57) Monitor-Rhythm Ecg Trace Only (07/21/18 15:57) Ed Iv/Invasive Line Start (07/21/18 15:57) Morphine Injection (Morphine Injection (07/21/18 15:58) Ed Iv/Invasive Line Start (07/21/18 16:00) Ns Iv 1000 Ml (Sodium Chloride 0.9%) (07/21/18 16:00) Ct Angio Chst/Abd/Pelv W (07/21/18 16:16) Iohexol Injection (Omnipaque 350 Mg/Ml 1 (07/21/18 16:30) Di Iv Start (Assessment) .IV start (07/21/18 16:30) Received Contrast (Hold Metformin- Contr (07/21/18 16:30) Sodium Chloride Flush (Catheter Flush Sy (07/21/18 16:30) Ns (Ivpb) (Sodium Chloride 0.9% Ivpb Bag (07/21/18 16:30) Ua Culture If Indicated (07/21/18 16:33) Morphine Injection (Morphine Injection (07/21/18 17:41) Urine Culture (07/21/18 17:15) Lidocaine 2% Viscous 15 Ml (Xylocaine Vi (07/21/18 18:30) Antacid Suspension (Mylanta Suspension (07/21/18 18:30) Famotidine Injection (Pepcid Injection) (07/21/18 18:21) Troponin I (07/21/18 18:40) Isosorbide Mononitrate Tablet (Imdur Tab (07/21/18 19:45) Lipase (07/21/18 19:41) Ceftriaxone For Iv Use (Rocephin For I (07/21/18 20:00) Rx-Hydrocodone/Apap 5-325 Mg (Rx-Vicodin (07/21/18 20:15) Medications Given in ED Vital Signs/I&O 07/21/18 07/21/18 15:50 20:32 Temp 98.2 98.2 Pulse 83 83 Resp 20 20 B/P (MAP) 169/92 (117) 169/92 (117) Pulse Ox 99 99 Blood Pressure Mean: 117 Progress Progress Note #1: Time: 16:26 Progress Note Patient was seen and examined upon arrival. EMS had placed nitroglycerin paste and given aspirin. Fentanyl 50 g by EMS did not improve his pain. Morphine was ordered for further pain relief. Chest x-ray was promptly reviewed. No acute abnormalities were appreciated. CT angiogram of the chest, abdomen and pe lvis has been ordered for further evaluation of his pain. Progress Note #2: Time: 17:[address] angiogram viewed by me, discussed with radiologist, and report reviewed. Findings were concerning for possible incarcerated right inguinal hernia causing some obstruction. Patient was reassessed and found to be tender throughout the abdomen. I could not palpate the hernia well enough to attempt a reduction. Additional morphine 5 mg IV is being given for pain control. Consult with surgery is pending. Progress Note #3: Progress Note Patient was seen and examined by Dr. Mcadams. The hernia was easily reducible. He does not believe the hernia is the cause of our patient's pain. Patient received a GI cocktail which did not seem to improve his upper abdominal pain. Lipase was unremarkable. Ultimately, I'm uncertain of the cause of his pain. He was given a take-home pack of hydrocodone. Urine did show evidence of infection with a large amount of white cells. Ultra from his prior visit was reviewed and Rocephin was given to treat his pain. Repeat troponin showed a trend downward. The initial troponin was not elevated from his prior. Patient was ultimately dismissed home with a more robust an antacid regimen and instructions to follow-up in the outpatient setting. Initial ECG Impression Date: July 21, 2018 Initial ECG Impression Time: 16:09 Initial ECG Rate: 82 Comment Atrial paced complexes with chronic left bundle branch block. No acute ST changes. No significant change from prior. Diagnostic Imaging Diagonstic Imaging: Xray Plain Films/CT/US/NM/MRI: chest Comments Chest x-ray viewed by me and report reviewed. See report below: NAME: JORGE ALBERTO CALDWELL [facility] REC#: [id number] PT STATUS: REG ER : 1945 PHYSICIAN: VJ EDWARD MD ADMIT DATE: 07/21/18/ER Draft Date of Exam:07/21/18 CHEST 1 VIEW, AP/PA ONLY INDICATION: Shortness of breath and chest pain. Frontal chest obtained at 04:06 p.m. and compared to 07/18/2018. There is post sternotomy change. Pacemaker device is unchanged. The heart is borderline in size. There is mild central vascular prominence. There is no focal infiltrate, pneumothorax, or pleural fluid. The study is limited by poor inspiration. IMPRESSION: Postop changes with mild central vascular prominence. Poor inspiration. No acute change compared with 07/18/2018. Dictated on workstation # [id number] Dict: 07/21/18 1611 Trans: 07/21/18 1621 [id number] Interpreted by: TIKI VEGA MD Diagonstic Imaging: CT Plain Films/CT/US/NM/MRI: chest, abdomen, pelvis Comments CT angiogram of the chest, abdomen and pelvis viewed by me, discussed with radiologist, and report reviewed. See report below: NAME: JORGE ALBERTO CALDWELL [facility] REC#: [id number] PT STATUS: REG ER : 1945 PHYSICIAN: VJ EDWARD MD ADMIT DATE: 07/21/18/ER ft Date of Exam:07/21/18 CT ANGIO CHST/ABD/PELV W PROCEDURE: CT angiography of the chest with contrast and CT abdomen and pelvis with contrast. TECHNIQUE: Multiple contiguous axial images were obtained through the chest, abdomen and pelvis after administration of intravenous contrast. Reconstructed MIP CT angiography acquisitions of the aorta were then performed. Auto Exposure Controls were utilized during the CT exam to meet ALARA standards for radiation dose reduction. INDICATION: Back pain, chest pain and abdominal tenderness. FINDINGS: There is cardiomegaly. There are coronary artery calcifications. There is minimal scarring in the lung bases. There are no discrete pulmonary nodules, masses or infiltrates. There is a large hiatal hernia. The thoracic aorta is normal in caliber and without evidence of dissection. There is suboptimal opacification of the pulmonary arteries. There is no pathologically enlarged adenopathy in the chest. Liver is normal in size and without focal lesions. There is cholelithiasis. There is no biliary ductal dilatation. Spleen is normal. The pancreas and adrenal glands are unremarkable. There is a cyst in the right kidney, inferiorly. There is no evidence of obstructive uropathy. The abdominal aorta is nonaneurysmal. There is no dissection of the abdominal aorta or either iliac vessels. There is an incarcerated right inguinal hernia. This appears to contain some right ileal loops. There are some mildly dilated small bowel loops proximal to this, likely reflecting ileus or early partial obstruction. There is no free air. There is a Solo catheter in the bladder. There is moderate thoracolumbar spondylosis. IMPRESSION: 1. Cardiomegaly and coronary artery calcifications. 2. The thoracic aorta is normal in caliber without evidence of dissection. 3. Moderately large hiatal hernia. 4. Cholelithiasis. 5. At least partially incarcerated right inguinal hernia containing some loops of ileum. There are some mildly dilated and fluid-filled loops of small bowel proximal to this suggesting ileus or possibly early partial small bowel obstruction. Findings were conveyed directly to Dr. Vj Edward in the [facility] at 5:06 p.m. Dictated on workstation # [id number] Dict: 07/21/18 1701 Trans: 07/21/18 1719 [facility] [id number] Interpreted by: TONA QUIGLEY MD Departure Impression Primary Impression: Atypical chest pain Additional Impressions: Coronary artery disease Qualified Codes: I25.10 - Atherosclerotic heart disease of [place] coronary artery without angina pectoris Generalized abdominal pain Urinary tract infection Qualified Codes: N39.0 - Urinary tract infection, site not specified; R31.9 - Hematuria, unspecified Right inguinal hernia Hiatal hernia Disposition: HOME, SELF-CARE Condition: Improved Departure-Patient Inst. Decision time for Depature: 20:16 Referrals: [facility] [place] (PCP/Family) Primary Care Physician PATSY MCADAMS ALI MD [facility] Patient Instructions: Hiatal Hernia, Inguinal and Femoral (Groin) Hernias Add. Discharge Instructions: Drink plenty of clear liquids. Gradually advance diet with small quantities of bland food as tolerated. Use your hydrocodone as prescribed for pain. Add isosorbide mononitrate to your cardiac regimen. Follow-up with Dr. Mason and your primary care provider soon as possible. Call Tuesday morning for appointments. Replace omeprazole with Protonix as prescribed. Add Pepcid and (famotidine) as additional antacid treatment. Avoid the following: Eating large meals, eating close to bedtime, caffeine, carbonation, citrus fruits and juices, alcohol, tobacco, tomato products, mints, chocolate, spicy foods, fatty or greasy foods, NSAID medications such as ibuprofen or naproxen, or anything else you know irritates your stomach. Return to care if symptoms are worsening. Follow-up with Dr. Mcadams in 2-3 weeks. All discharge instructions reviewed with patient and/or family. Voiced understanding. Scripts Cefdinir (Cefdinir) 300 Mg Capsule 300 MG PO BID, #14 CAP 0 Refills Prov: VJ EDWARD MD 07/21/18 Isosorbide Mononitrate (Isosorbide Mononitrate ER) 30 Mg Tab.er.24h 30 MG PO DAILY, #30 TAB Prov: VJ EDWARD MD 07/21/18 Omeprazole (Omeprazole) 40 Mg Capsule.dr 40 MG PO DAILY, #30 CAP Prov: VJ EDWARD MD 07/21/18 Famotidine (Pepcid) 20 Mg Tablet 20 MG PO BID, #60 TAB Prov: VJ EDWARD MD 07/21/18 Copy Copies To 1: AMY GALARZA DO; PATSY MCADAMS DO Copies To 2: LUIS CARLOS MASON MD FACP FAC CCDS VJ EDWARD MD July 21, 2018 16:28
[2018-07-21] MEDS ORDERED: IOHEXOL 350 MG/ML 100 ML (OMNIPAQUE 350) VIAL IV ONE (16:30)
[2018-07-21] MEDS ORDERED: NS 100 ML (IVPB) BAG IV ONE (16:30)
[2018-07-21] MEDS ORDERED: CATHETER FLUSH 10 ML SYR IV PRN (16:30)
[2018-07-21] MEDS ORDERED: HOLD METFORMIN - RECEIVED CONTRAST 20 ML VIAL IV SCH (16:30)
--- NOTE | 2018-07-21 17:20 | Diagnostic Imaging Report ---
PROCEDURE: CT angiography of the chest with contrast and CT abdomen and pelvis with contrast. TECHNIQUE: Multiple contiguous axial images were obtained through the chest, abdomen and pelvis after administration of intravenous contrast. Reconstructed MIP CT angiography acquisitions of the aorta were then performed. Auto Exposure Controls were utilized during the CT exam to meet ALARA standards for radiation dose reduction. INDICATION: Back pain, chest pain and abdominal tenderness. FINDINGS: There is cardiomegaly. There are coronary artery calcifications. There is minimal scarring in the lung bases. There are no discrete pulmonary nodules, masses or infiltrates. There is a large hiatal hernia. The thoracic aorta is normal in caliber and without evidence of dissection. There is suboptimal opacification of the pulmonary arteries. There is no pathologically enlarged adenopathy in the chest. Liver is normal in size and without focal lesions. There is cholelithiasis. There is no biliary ductal dilatation. Spleen is normal. The pancreas and adrenal glands are unremarkable. There is a cyst in the right kidney, inferiorly. There is no evidence of obstructive uropathy. The abdominal aorta is nonaneurysmal. There is no dissection of the abdominal aorta or either iliac vessels. There is an incarcerated right inguinal hernia. This appears to contain some right ileal loops. There are some mildly dilated small bowel loops proximal to this, likely reflecting ileus or early partial obstruction. There is no free air. There is a Sandhu catheter in the bladder. There is moderate thoracolumbar spondylosis. IMPRESSION: 1. Cardiomegaly and coronary artery calcifications. 2. The thoracic aorta is normal in caliber without evidence of dissection. 3. Moderately large hiatal hernia. 4. Cholelithiasis. 5. At least partially incarcerated right inguinal hernia containing some loops of ileum. There are some mildly dilated and fluid-filled loops of small bowel proximal to this suggesting ileus or possibly early partial small bowel obstruction. Findings were conveyed directly to Dr. Vj Edward in the [facility] ER at 5:06 p.m. Dictated by: Dictated on workstation # [id number]
[2018-07-21 17:43] LABS: BILIRUBIN,URINE NEGATIVE (NEGATIVE); GLUCOSE, URINE (UA) NEGATIVE (NEGATIVE); KETONES,URINE NEGATIVE (NEGATIVE); LEUKOCYTE ESTERASE ,URINE 3+ (NEGATIVE); NITRITE,URINE POSITIVE (NEGATIVE); PH,URINE 6.5 (5-9); PROTEIN,URINE 2+ (NEGATIVE); UROBILINOGEN,URINE NORMAL (NORMAL)
[2018-07-21 17:46] LABS: CLARITY,URINE SLIGHTLY CLOUDY; COLOR,URINE STRAW
[2018-07-21 17:47] LABS: RBC,URINE >100 /HPF; WBC,URINE TNTC /HPF
[2018-07-21 17:48] LABS: BACTERIA,URINE LARGE /HPF
[2018-07-21] MEDS ORDERED: FAMOTIDINE 20MG/2ML IV (PEPCID) IV STA (18:21)
[2018-07-21] MEDS ORDERED: LIDOCAINE 2% VISCOUS 15 ML UDC PO ONE (18:30)
[2018-07-21] MEDS ORDERED: ANTACID SUSP 30 ML UDC (MYLANTA) PO ONE (18:30)
[2018-07-21] MEDS ORDERED: ISOSORBIDE MONONITRATE 30 MG (IMDUR) TAB PO ONE (19:45)
[2018-07-21] MEDS ORDERED: cefTRIAXone FOR IV USE 1,000 MG in WATER (STERILE) FOR INJECTION 10 ML IV ONE (20:00)
[2018-07-21] MEDS ORDERED: RX-HYDROCODONE/APAP 5/325 MG #4 TAB PK PO PRN (20:15)
[2018-07-21] MEDS ORDERED: ISOS30TA3 PO (20:21)
[2018-07-21] MEDS ORDERED: FAMO-119 PO (20:21)
[2018-07-21] MEDS ORDERED: OMEP40CA36 PO (20:21)
[2018-07-21] MEDS ORDERED: CEFD300C3 PO (20:27)
[2018-07-21 20:32] VITALS: BP 169/92
--- NOTE | 2018-07-22 15:31 | Consultation (Surgery) ---
History of Present Illness History of Present Illness Patient Consulted On(lisa/time) 07/21/18 18:00 Date Seen by Provider: July 21, 2018 Time Seen by Provider: 18:00 History of Present Illness consult requested by Dr. Jarrett for right inguinal hernia , abdominal pain patient is a 72-year-old male that was just discharged from the hospital yesterday. Patient this morning had return of chest and back pain that he rated 10 out of 10 no sharp in nature. Movement and breathing would make the pain worse. Nothing was seems to make it better. Patient also states the pain is in the upper portion of his abdomen no radiation of this pain. He did receive some pain medication which has made it slightly better. Patient had a CTA scan of thechest abdomen and pelvis which did demonstrate a moderate hiatal hernia and a right incarcerated inguinal hernia. Patient states it is not having any pain in the right lower quadrant. he states he's had a hernia for quite some time and is goes in and out all the time without difficulty. He doesn't feel that is causing him any problems at this time. He denies any nausea vomiting fever sweats chills shortness of breath or chest pain. Allergies and Home Medications Allergies Coded Allergies: metoprolol (Unverified Allergy, Unknown, 09/18/14) "sunburn" rivaroxaban (Unverified Allergy, Unknown, 12/18/14) VOMITING/DIARRHEA Home Medications Apixaban 5 Mg Tablet, 5 MG PO BID Prescribed by: PHANI VILLA on 03/12/18 1634 Aspirin 81 Mg Tab.chew, 81 MG PO DAILY Prescribed by: OPHELIA HUNTER on 07/20/18905 Atorvastatin Calcium 40 Mg Tablet, 40 MG PO HS Prescribed by: OPHELIA HUNTER on 07/20/18905 Carvedilol 3.125 Mg Tablet, 3.125 MG PO BID Prescribed by: OPHELIA HUNTER on 07/20/18905 Cefdinir 300 Mg Capsule, 300 MG PO BID Prescribed by: PIEDAD JARRETT on 07/21/182026 Enalapril Maleate 2.5 Mg Tablet, 2.5 MG PO BID Prescribed by: OPHELIA HUNTER on 07/20/18905 Famotidine 20 Mg Tablet, 20 MG PO BID Prescribed by: PIEDAD JARRETT on 07/21/182020 Isosorbide Mononitrate 30 Mg Tab.er.24h, 30 MG PO DAILY Prescribed by: PIEDAD JARRETT on 07/21/182020 Levofloxacin 500 Mg Tablet, 500 MG PO DAILY Prescribed by: PIEDAD JARRETT on 03/08/18 141 Multivitamin 1 Each Tablet, 1 TAB PO DAILY, (Reported) [place] 3 Polyunsat Fatty Acids 1,000 Mg Cap, 1,000 MG PO DAILY, (Reported) Omeprazole 20 Mg Capsule.dr, 20 MG PO BID, (Reported) Omeprazole 40 Mg Capsule.dr, 40 MG PO DAILY Prescribed by: PIEDAD JARRETT on 07/21/182020 Patient Home Medication List Home Medication List Reviewed: Yes Past Pqnercp-Uzapdu-Fqgecv Hx Patient Social History Alcohol Use: Occasionally Uses Number of Drinks Today: AA Recreational Drug Use: Yes (etoh) Drug of Choice: distant past history of marijuana use Smoking Status: Never a Smoker 2nd Hand Smoke Exposure: Yes (Father was a heavy smoker in his youth) Recent Foreign Travel: No Contact w/Someone Who Travel: No Recent Infectious Disease Expo: No Recent Hopitalizations: No Immunizations Up To Date Tetanus Booster (TDap): Unknown PED Vaccines UTD: Yes Date of Pneumonia Vaccine: Feb 28, 2013 Date of Influenza Vaccine: Dec 27, 2016 Seasonal Allergies Seasonal Allergies: No Surgeries History of Surgeries: Yes (colonoscopy, EGD) Surgeries: Abdominal, CABG, Eye Surgery, Pacemaker, Vascular Surgery Respiratory History of Respiratory Disorde: Yes Respiratory Disorders: Pneumonia, Pulmonary Embolism Cardiovascular History of Cardiac Disorders: Yes Cardiac Disorders: Atrial Fibrillation, Cardiomyopathy, Coronary Artery Disease, Deep Vein Thrombosis, Heart Murmur, High Cholesterol, Hypertension, Irregular Heartbeat Neurological History of Neurological Disord: No Reproductive System Hx Reproductive Disorders: No Sexually Transmitted Disease: No HIV/AIDS: No Genitourinary History of Genitourinary Disor: Yes (chronic solo) Genitourinary Disorders: Benign Prostatic Hyperpl, Kidney Infection, Bladder Infection, Neurogenic Bladder Gastrointestinal History of Gastrointestinal Di: Yes Gastrointestinal Disorders: Gastroesophageal Reflux, Chronic Constipation Musculoskeletal History of Musculoskeletal Dis: Yes (L hip fx, right ankle broken) Musculoskeletal Disorders: Fractures Endocrine History of Endocrine Disorders: No HEENT History of HEENT Disorders: Yes HEENT Disorders: Cataract Loss of Vision: Denies Hearing Impairment: Denies Cancer History of Cancer: No Psychosocial History of Psychiatric Problem: No Integumentary History of Skin or Integumenta: No Blood Transfusions History of Blood Disorders: Yes Adverse Reaction to a Blood Tr: No Family Medical History Significant Family History: Cancer, CAD Over 55 Years Old, CVA Family Medial History: Cancer (LINING OF ABD CAVITY, AT AGE 80) 03 MOTHER Chest pain (FATHER OF [place] AT AGE 83) 03 FATHER Congestive heart failure 03 FATHER Family history: Arthritis 03 MOTHER, Onset:60 years & older Family history: Cardiovascular disease 03 FATHER Heart disease 03 FATHER Hypercholesterolemia 03 FATHER 03 MOTHER Myocardial infarction 03 FATHER Prostate cancer (DIAGNOSED AT 72 OR 73 PER PT) 03 FATHER Stroke 09 SISTER Visual impairment (SISTER WEARS GLASSES ) 09 SISTER No Family History of: Abdominal aortic aneurysm Jorge's disease Alcoholism Aphasia Cancer of colon Cataract Congenital heart disease Cystic fibrosis Dementia Dysphagia Family history: Allergy Family history: Alzheimer's disease Family history: Asthma Family history: Breast disease Family history: Coronary thrombosis Family history: Diabetes mellitus Family history: Gastrointestinal disease Family history: Glaucoma Family history: Hypertension Family history: Osteoporosis Family history: Thyroid disorder Headache Hearing loss Hereditary disease History of - anemia History of - disorder History of - respiratory disease History of drug abuse Human immunodeficiency virus (HIV) seropositivity Infertile Kidney disease Malignant neoplasm of lung Parkinson's disease Psychotic disorder Seizure disorder Tuberculosis Review of Systems-General Constitutional: no symptoms reported EENTM: no symptoms reported Respiratory: see HPI Cardiovascular: see HPI Gastrointestinal: no symptoms reported Genitourinary: no symptoms reported Musculoskeletal: no symptoms reported Skin: no symptoms reported Psychiatric/Neurological: No Symptoms Reported Physical Exam-General Problems Physical Exam Vital Signs Vital Signs - First Documented 07/21/18 15:50 Temp 98.2 Pulse 83 Resp 20 B/P (MAP) 169/92 (117) Pulse Ox 99 Capillary Refill : Less Than 3 Seconds General Appearance: no apparent distress HEENT: PERRL/EOMI, normal ENT inspection Neck: supple Respiratory: chest non-tender, no respiratory distress, no accessory muscle use Cardiovascular: regular rate, rhythm Gastrointestinal: non tender (diastasis upper abdomen), soft (right inguinal hernia reducible, able to get it to come back with increasing abd pressure and then able to reduce it again.), no organomegaly Back: normal inspection Extremities: normal range of motion Neurologic/Psychiatric: hearth feeder II-XII nml as tested, no motor/sensory deficits, alert, normal mood/affect, oriented x 3 Skin: normal color, warm/dry Lymphatic: no adenopathy Data Review Labs Laboratory Tests 07/21/18 15:58: White Blood Count 9.7, Red Blood Count 4.59, Hemoglobin 11.8L, Hematocrit 36L, Mean Corpuscular Volume 78L, Mean Corpuscular Hemoglobin 26, Mean Corpuscular Hemoglobin Concent 33, Red Cell Distribution Width 16.7H, Platelet Count 211, Mean Platelet Volume 10.3, Neutrophils (%) (Auto) 83H, Lymphocytes (%) (Auto) 8L , Monocytes (%) (Auto) 8, Eosinophils (%) (Auto) 0, Basophils (%) (Auto) 0, Neutrophils # (Auto) 8.1H, Lymphocytes # (Auto) 0.8L, Monocytes # (Auto) 0.8, Eosinophils # (Auto) 0.0, Basophils # (Auto) 0.0, Prothrombin Time 14.5, INR Comment 1.1, Activated Partial Thromboplast Time 31, Sodium Level 131L, Potassium Level 4.2, Chloride Level 100, Carbon Dioxide Level 24, Anion Gap 7, Blood Urea Nitrogen 16, Creatinine 1.29, Estimat Glomerular Filtration Rate 54, BUN/Creatinine Ratio 12, Glucose Level 149H, Calcium Level 9.6, Corrected Calcium 9.5, Magnesium Level 1.8, Total Bilirubin 0.7, Aspartate Amino Transf (AST/SGOT) 14, Alanine Aminotransferase (ALT/SGPT) 14, Alkaline Phosphatase 82, Myoglobin 67.3, Troponin I 0.159H, Total Protein 6.8, Albumin 4.1 07/21/18 17:15: Urine Color STRAW, Urine Clarity SLIGHTLY CLOUDY, Urine pH 6.5, Urine Specific [place] 1.005L, Urine Protein 2+H, Urine Glucose (UA) NEGATIVE, Urine Ketones NEGATIVE, Urine Nitrite POSITIVEH, Urine Bilirubin NEGATIVE, Urine Urobilinogen NORMAL, Urine Leukocyte Esterase 3+H, Urine RBC (Auto) 4+H, Urine RBC >100H, Urine WBC TNTCH, Urine Squamous Epithelial Cells NONE, Urine Crystals NONE, Urine Bacteria LARGEH, Urine Casts NONE, Urine Mucus MODERATEH, Urine Culture Indicated YES 07/21/18 18:56: Troponin I 0.145H, Lipase 34 Assessment/Plan Assessment/Plan Assessment/Plan right inguinal hernia chest pain hiatal hernia patient with hernia i am able to reduce (right inguinal). patient not having any pain with this at all. He has hiatal hernia takes omeprazole on regular basis would consider changing to protonix and adding pepcid prn. no surgical indications at this time if any worsening or changing condition should be re-evaluated at that time. otherwise f/u in office in 2-3 weeks. PATSY MCADAMS DO July 22, 2018 15:31
== END 2018-07-21 20:32 | disposition home or self-care (01) ==
LOC: EDUNIT# 15:50 → ER 15:50
DX: R07.89 Other chest pain (principal); I25.10 Atherosclerotic heart disease of native coronary artery without angina pectoris; N39.0 Urinary tract infection, site not specified; K44.9 Diaphragmatic hernia without obstruction or gangrene; K40.90 Unilateral inguinal hernia, without obstruction or gangrene, not specified as recurrent; I48.91 Unspecified atrial fibrillation; I42.9 Cardiomyopathy, unspecified; K21.9 Gastro-esophageal reflux disease without esophagitis; E78.00 Pure hypercholesterolemia, unspecified; I10 Essential (primary) hypertension; Z87.448 Personal history of other diseases of urinary system; Z82.49 Family history of ischemic heart disease and other diseases of the circulatory system; Z80.42 Family history of malignant neoplasm of prostate; Z87.19 Personal history of other diseases of the digestive system; Z79.01 Long term (current) use of anticoagulants; Z86.711 Personal history of pulmonary embolism; Z86.718 Personal history of other venous thrombosis and embolism; Z88.8 Allergy status to other drugs, medicaments and biological substances; Z79.82 Long term (current) use of aspirin; Z77.22 Contact with and (suspected) exposure to environmental tobacco smoke (acute) (chronic); Z95.1 Presence of aortocoronary bypass graft; Z98.890 Other specified postprocedural states; Z95.0 Presence of cardiac pacemaker; Z87.01 Personal history of pneumonia (recurrent)
CPT/HCPCS: 36415; 71045; 71275; 74174; 80053; 81000; 83690; 83735; 83874; 84484; 85025; 85610; 85730; 87077; 87088; 87186; 93005; 93041

== ENCOUNTER → 2018-08-31 | Emergency (ER) | payer MEDICARE ==
[~2018-08-31] VITALS: Ht 180.3 cm; Wt 94.3 kg
[~2018-08-31] MED LIST changes: +CEFD300C3 PO; +FAMO-119 PO; +ISOS30TA3 PO; +NITROGLYCERIN 0.4 MG SL TABS BTL 25'S SL ONE; +NS IV 1000 ML 1,000 ML IV SCH; +OMEP40CA36 PO; +cefTRIAXone FOR IV USE 1,000 MG in WATER (STERILE) FOR INJECTION 10 ML IV ONE
[2018-08-31] MEDS: NITROGLYCERIN 0.4 MG SL TABS BTL 25'S SL PRN ×2 (03:33→03:38)
[2018-08-31 03:37] LABS: BASOPHILS % (AUTO) 1 % (0-10); EOSINOPHILS # (AUTO) 0.1 10^3/uL (0.0-0.3); EOSINOPHILS % (AUTO) 2 % (0-10); HEMATOCRIT 35 % (40-54); HEMOGLOBIN 11.4 G/DL (13.3-17.7); LYMPHOCYTES % (AUTO) 31 % (12-44); MEAN CORPUSCULAR HEMOGLOBIN 26 PG (25-34); MEAN CORPUSCULAR HGB CONC 33 G/DL (32-36); MEAN CORPUSCULAR VOLUME 79 FL (80-99); MEAN PLATELET VOLUME 10.4 FL (7.4-10.4); MONOCYTES # (AUTO) 0.8 X 10^3 (0.0-1.0); MONOCYTES % (AUTO) 13 % (0-12); NEUTROPHILS # (AUTO) 3.4 X 10^3 (1.8-7.8); NEUTROPHILS % (AUTO) 53 % (42-75); PLATELET COUNT 194 10^3/uL (130-400); RED CELL DISTRIBUTION WIDTH 17.6 % (10.0-14.5); WHITE BLOOD COUNT 6.4 10^3/uL (4.3-11.0)
--- NOTE | 2018-08-31 03:38 | ED Chest Pain ---
General Stated Complaint: CP Source: patient, EMS Exam Limitations: no limitations (ODILON MONIQUE) History of Present Illness Date Seen by Provider: Aug 31, 2018 Time Seen by Provider: 03:23 Initial Comments Patient presents to ER by EMS with chief complaint for the past several hours been having some chest pain worsening after riding his bike all over town and back home. He saw Dr. Santos yesterday and was taken off his Eliquis. He was on that for pulmonary embolism for over 6 months. He says he made it to his front porch when the onset there feeling very sharp stabbing pain in his left chest r adiating to the left shoulder. He has a history of CABG. He does not smoke have high blood pressure, hyperlipidemia or diabetes. He is not having any weakness or numbness. He denies nausea. EMS got him an IV in his left arm and gave him 2 doses of 50 g fentanyl since there were not able to immediately get an blood pressure. They also gave him 324 mg of aspirin on route. EMS remarks that he was doubled over clutching his chest pain when they arrived. He still rates his pain as a 10 out of 10. (ODILON MONIQUE) Allergies and Home Medications Allergies Coded Allergies: metoprolol (Unverified Allergy, Unknown, 09/18/14) "sunburn" rivaroxaban (Unverified Allergy, Unknown, 12/18/14) VOMITING/DIARRHEA Home Medications Apixaban 5 Mg Tablet, 5 MG PO BID Prescribed by: PHANI VILLA on 03/12/18 1634 Aspirin 81 Mg Tab.chew, 81 MG PO DAILY Prescribed by: OPHELIA HUNTER on 07/20/18905 Atorvastatin Calcium 40 Mg Tablet, 40 MG PO HS Prescribed by: OPHELIA HUNTER on 07/20/18905 Carvedilol 3.125 Mg Tablet, 3.125 MG PO BID Prescribed by: OPHELIA HUNTER on 07/20/18905 Cefdinir 300 Mg Capsule, 300 MG PO BID Prescribed by: PIEDAD JARRETT on 07/21/182026 Ciprofloxacin HCl 500 Mg Tablet, 500 MG PO BID, (Reported) Enalapril Maleate 2.5 Mg Tablet, 2.5 MG PO BID Prescribed by: OPHELIA HUNTER on 07/20/18905 Famotidine 20 Mg Tablet, 20 MG PO BID Prescribed by: PIEDAD JARRETT on 07/21/182020 Isosorbide Mononitrate 30 Mg Tab.er.24h, 30 MG PO DAILY Prescribed by: PIEDAD JARRETT on 07/21/182020 Levofloxacin 500 Mg Tablet, 500 MG PO DAILY Prescribed by: PIEDAD JARRETT on 03/08/18 1411 Multivitamin 1 Each Tablet, 1 TAB PO DAILY, (Reported) [place] 3 Polyunsat Fatty Acids 1,000 Mg Cap, 1,000 MG PO DAILY, (Reported) Omeprazole 20 Mg Capsule.dr, 20 MG PO BID, (Reported) Omeprazole 40 Mg Capsule.dr, 40 MG PO DAILY Prescribed by: PIEDAD JARRETT on 07/21/182020 Patient Home Medication List Home Medication List Reviewed: Yes (ODILON MONIQUE) Review of Systems Review of Systems Constitutional: No chills, No diaphoresis EENTM: No Blurred Vision, No Double Vision, No Eye Pain Respiratory: Denies Cough, Denies Shortness of Air Cardiovascular: See HPI, Chest Pain; Denies Edema, Denies Irregular Heart Rate, Denies Lightheadedness, Denies Palpitations, Denies Syncope Gastrointestinal: Denies Abdominal Pain, Denies Constipated, Denies Diarrhea, Denies Nausea, Denies Poor Fluid Intake, Denies Vomiting Genitourinary: Denies Burning, Denies Discharge Musculoskeletal: No back pain, No joint pain (ODILON MONIQUE) Past Jeuxlgb-Rvoxnf-Ifrwfh Hx Patient Social History Alcohol Use: Occasionally Uses Alcohol Beverage of Choice: Beer Recreational Drug Use: No Drug of Choice: distant past history of marijuana use Smoking Status: Never a Smoker 2nd Hand Smoke Exposure: Yes (Father was a heavy smoker in his youth) Recent Foreign Travel: No Contact w/Someone Who Travel: No Recent Hopitalizations: No (ODILON MONIQUE) Immunizations Up To Date Tetanus Booster (TDap): Unknown PED Vaccines UTD: Yes Date of Pneumonia Vaccine: Feb 28, 2013 Date of Influenza Vaccine: Dec 27, 2016 (ODILON MONIQUE) Seasonal Allergies Seasonal Allergies: No (ODILON MONIQUE) Past Medical History Surgeries: Yes (colonoscopy, EGD) Abdominal, CABG, Eye Surgery, Pacemaker, Vascular Surgery Respiratory: Yes Pneumonia, Pulmonary Embolism Currently Using CPAP: No Currently Using BIPAP: No Cardiac: Yes Atrial Fibrillation, Cardiomyopathy, Coronary Artery Disease, Deep Vein Thrombosis, Heart Murmur, High Cholesterol, Hypertension, Irregular Heartbeat Neurological: No Reproductive Disorders: No Sexually Transmitted Disease: No HIV/AIDS: No Genitourinary: Yes (chronic solo) Benign Prostatic Hyperpl, Kidney Infection, Bladder Infection, Neurogenic Bladder Gastrointestinal: Yes Gastroesophageal Reflux, Chronic Constipation Musculoskeletal: Yes (L hip fx, right ankle broken) Fractures Endocrine: No HEENT: Yes Cataract Loss of Vision: Denies Hearing Impairment: Denies Cancer: No Psychosocial: No Integumentary: No Blood Disorders: Yes Adverse Reaction/Blood Tranf: No (ODILON MONIQUE) Family Medical History Cancer (LINING OF ABD CAVITY, AT AGE 80) 03 MOTHER Chest pain (FATHER OF [place] AT AGE 83) 03 FATHER Congestive heart failure 03 FATHER Family history: Arthritis 03 MOTHER, Onset:60 years & older Family history: Cardiovascular disease 03 FATHER Heart disease 03 FATHER Hypercholesterolemia 03 FATHER 03 MOTHER Myocardial infarction 03 FATHER Prostate cancer (DIAGNOSED AT 70 OR 71 PER PT) 03 FATHER Stroke 09 SISTER Visual impairment (SISTER WEARS GLASSES ) 09 SISTER No Family History of: Abdominal aortic aneurysm Flathead's disease Alcoholism Aphasia Cancer of colon Cataract Congenital heart disease Cystic fibrosis Dementia Dysphagia Family history: Allergy Family history: Alzheimer's disease Family history: Asthma Family history: Breast disease Family history: Coronary thrombosis Family history: Diabetes mellitus Family history: Gastrointestinal disease Family history: Glaucoma Family history: Hypertension Family history: Osteoporosis Family history: Thyroid disorder Headache Hearing loss Hereditary disease History of - anemia History of - disorder History of - respiratory disease History of drug abuse Human immunodeficiency virus (HIV) seropositivity Infertile Kidney disease Malignant neoplasm of lung Parkinson's disease Psychotic disorder Seizure disorder Tuberculosis Cancer, CAD Over 55 Years Old, CVA (ODILON MONIQUE) Physical Exam Vital Signs Vital Signs - First Documented 08/31/18 03:25 Pulse 82 Resp 18 B/P (MAP) 145/96 (112) O2 Delivery Room Air (PIEDAD RILEY MD) Vital Signs Capillary Refill : (ODILON MONIQUE) Height, Weight, BMI Height: 0'71.00" Weight: 207lbs. 0oz. [id number]; 29.9 BMI Method:Actual General Appearance: No Apparent Distress, WD/WN HEENT: PERRL/EOMI, Pharynx Normal, Moist Mucous Membranes Neck: Full Range of Motion, Normal Inspection Respiratory: Normal Breath Sounds, No Accessory Muscle Use, No Respiratory Distress Cardiovascular: Regular Rate, Rhythm, Normal Peripheral Pulses, Other (mild bilateral pedal edema) Gastrointestinal: Normal Bowel Sounds, Non Tender, Soft Extremity: Normal Capillary Refill, Pedal Edema (slight) Neurologic/Psychiatric: Alert, Oriented x3, Other (anxious affect) Skin: Normal Color, Warm/Dry (LIA,ODILON J) Progress/Results/Core Measures Results/Orders Lab Results Laboratory Tests Test 08/31/18 03:27 08/31/18 04:30 08/31/18 07:24 Range/Units White Blood Count 6.4 4.3-11.0 10^3/uL Red Blood Count 4.44 4.35-5.85 10^6/uL Hemoglobin 11.4 L 13.3-17.7 G/DL Hematocrit 35 L 40-54 % Mean Corpuscular Volume 79 L 80-99 FL Mean Corpuscular Hemoglobin 26 25-34 PG Mean Corpuscular Hemoglobin Concent 33 32-36 G/DL Red Cell Distribution Width 17.6 H 10.0-14.5 % Platelet Count 194 130-400 10^3/uL Mean Platelet Volume 10.4 7.4-10.4 FL Neutrophils (%) (Auto) 53 42-75 % Lymphocytes (%) (Auto) 31 12-44 % Monocytes (%) (Auto) 13 H 0-12 % Eosinophils (%) (Auto) 2 0-10 % Basophils (%) (Auto) 1 0-10 % Neutrophils # (Auto) 3.4 1.8-7.8 X 10^3 Lymphocytes # (Auto) 2.0 1.0-4.0 X 10^3 Monocytes # (Auto) 0.8 0.0-1.0 X 10^3 Eosinophils # (Auto) 0.1 0.0-0.3 10^3/uL Basophils # (Auto) 0.0 0.0-0.1 10^3/uL Prothrombin Time 13.6 12.2-14.7 SEC INR Comment 1.0 0.8-1.4 Activated Partial Thromboplast Time 29 24-35 SEC D-Dimer 0.38 0.00-0.49 UG/ML Sodium Level 135 135-145 MMOL/L Potassium Level 4.5 3.6-5.0 MMOL/L Chloride Level 105 98-107 MMOL/L Carbon Dioxide Level 18 L 21-32 MMOL/L Anion Gap 12 5-14 MMOL/L Blood Urea Nitrogen 24 H 7-18 MG/DL Creatinine 1.37 H 0.60-1.30 MG/DL Estimat Glomerular Filtration Rate 51 BUN/Creatinine Ratio 18 Glucose Level 84 70-105 MG/DL Calcium Level 9.7 8.5-10.1 MG/DL Corrected Calcium 9.5 8.5-10.1 MG/DL Magnesium Level 2.2 1.8-2.4 MG/DL Total Bilirubin 0.6 0.1-1.0 MG/DL Aspartate Amino Transf (AST/SGOT) 23 5-34 U/L Alanine Aminotransferase (ALT/SGPT) 13 0-55 U/L Alkaline Phosphatase 83 40-136 U/L Myoglobin 89.0 10.0-92.0 NG/ML Troponin I 0.115 H 0.103 H <0.028 NG/ML B-Type Natriuretic Peptide 404.6 H <100.0 PG/ML Total Protein 6.9 6.4-8.2 GM/DL Albumin 4.2 3.2-4.5 GM/DL Urine Color YELLOW Urine Clarity VERY CLOUDY H Urine pH 6.5 5-9 Urine Specific [place] 1.010 L 1.016-1.022 Urine Protein 2+ H NEGATIVE Urine Glucose (UA) NEGATIVE NEGATIVE Urine Ketones NEGATIVE NEGATIVE Urine Nitrite POSITIVE H NEGATIVE Urine Bilirubin NEGATIVE NEGATIVE Urine Urobilinogen NORMAL NORMAL MG/DL Urine Leukocyte Esterase 3+ H NEGATIVE Urine RBC (Auto) 3+ H NEGATIVE Urine RBC 2-5 H /HPF Urine WBC TNTC H /HPF Urine Squamous Epithelial Cells NONE /HPF Urine Crystals NONE /LPF Urine Bacteria MODERATE H /HPF Urine Casts NONE /LPF Urine Mucus NEGATIVE /LPF Urine Culture Indicated YES Urine Opiates Screen NEGATIVE NEGATIVE Urine Oxycodone Screen NEGATIVE NEGATIVE Urine Methadone Screen NEGATIVE NEGATIVE Urine Propoxyphene Screen NEGATIVE NEGATIVE Urine Barbiturates Screen NEGATIVE NEGATIVE Ur Tricyclic Antidepressants Screen NEGATIVE NEGATIVE Urine Phencyclidine Screen NEGATIVE NEGATIVE Urine Amphetamines Screen NEGATIVE NEGATIVE Urine Methamphetamines Screen NEGATIVE NEGATIVE Urine Benzodiazepines Screen NEGATIVE NEGATIVE Urine Cocaine Screen NEGATIVE NEGATIVE Urine Cannabinoids Screen NEGATIVE NEGATIVE (PIEDAD RILEY MD) My Orders Orders - PIEDAD RILEY MD Troponin I (08/31/18 07:21) (PIEDAD RILEY MD) Medications Given in ED Current Medications Medications Dose Ordered Sig/Sukhjinder Route Start Time Stop Time Status Last Admin Dose Admin Ceftriaxone Sodium 1000 mg/ Sterile Water 10 ml @ 200 mls/hr ONCE ONCE IV 08/31/18 05:15 08/31/18 05:17 DC 08/31/18 05:28 200 MLS/HR Nitroglycerin 0.4 mg UD PRN SL 08/31/18 03:45 08/31/18 03:38 0.4 MG (PIEDAD RILEY MD) Vital Signs/I&O 08/31/18 08/31/18 03:25 03:25 Pulse 82 Resp 18 B/P (MAP) 145/96 (112) O2 Delivery Room Air Nasal Cannula (PIEDAD RILEY MD) Progress Progress Note #1: Time: 03:38 Progress Note Plan to give the patient some nitroglycerin for his pain. Blood pressure is currently 140s systolic. D-dimer, chest pain workup. History of CABG [address] Fraser at [facility]. His dual chamber pacemaker for complete heart block followed by Dr. Santos. Ischemic cardiomyopathy with an left ventricular ejection fraction 30-35% August 2016. Patient has been noncompliant with ICD placement. CKD 3 or 4 Chronic indwelling urinary catheter since 2012. ED ACS 25 points. Not low risk. This patient is not a candidate for early discharge and should receive a standard chest pain evaluation with delayed troponin testing. First dose of nitroglycerin brought his pain down from a 10 to a 7. Progress Note #2: Time: 04:59 Progress Note His pain did improve after nitroglycerin and is no longer asking for pain medicines. His blood pressure did drop in the 140s down to around 96 systolic and spontaneously went back up to around 110. His creatinine is 1.37 which is above his baseline of 0.9. The BUN is modestly elevated at 24. Plan to give him a liter of saline. Progress Note #3: Time: 06:25 Progress Note The patient is comfortable pending transfer. We have given report to Dr. Jarrett's and he has assumed care of the patient. We have tried multiple EMS agencies looking for transport. Still pending available ACLS. (ODILON MONIQUE) Progress Note : Time: 08:31 Progress Note Supervision of this patient was assumed from Dr. Monique at shift change. Maureen ent is pain-free at this time. He had one brief episode of chest pain recently but that has passed. A repeat troponin at 4 hours was drawn and was unchanged. EMS is now here to transfer patient. Patient received Rocephin for treatment of UTI. (PIEDAD RILEY MD) Initial ECG Impression Date: Aug 31, 2018 Initial ECG Impression Time: 03:31 Initial ECG Rate: 80 Initial ECG Rhythm: Normal Sinus Initial ECG Intervals: QT (513) Initial ECG Impression: Nonspecific Changes Initial ECG Comparisson: Unchanged Comment Left bundle branch block seen previously. No clinically significant ST elevation or depression. (ODILON MONIQUE) Diagnostic Imaging Diagonstic Imaging: Xray Plain Films/CT/US/NM/MRI: chest (1v) Reviewed: Reviewed by Me (ODILON MONIQUE) Transfer of Care Time: 06:26 Care transferred to: Dr. Jarrett (ODILON MONIQUE) Departure Impression Primary Impression: Chest pain Qualified Codes: I20.0 - Unstable angina Additional Impression: UTI (urinary tract infection) Qualified Codes: N30.01 - Acute cystitis with hematuria Disposition: 02 XFER SHT-TRM HOSP Condition: Stable Transfer Time Spoke to Accepting Phy: 05:10 Transfer Progress Notes Discussed case with triage nurse and she will contact Dr. Hoffman and call us back. Discussed the case with Dr. Hoffman at 0515. He agrees to accept the patient. Triage will call us back with a room and report number. Transfer Facility: [place], [place] Method of Transfer: EMS (ODILON MONIQUE) Transfer Time: 08:32 (PIEDAD RILEY MD) Departure-Patient Inst. Referrals: [facility] (PCP/Family) Primary Care Physician ODILON MONIQUE Aug 31, 2018 03:38 PIEDAD RILEY MD Aug 31, 2018 08:32
[2018-08-31 03:54] LABS: PROTHROMBIN TIME PATIENT 13.6 SEC (12.2-14.7)
[2018-08-31 04:04] LABS: ALBUMIN 4.2 GM/DL (3.2-4.5); BILIRUBIN,TOTAL 0.6 MG/DL (0.1-1.0); CALCIUM 9.7 MG/DL (8.5-10.1); CREATININE SERUM 1.37 MG/DL (0.60-1.30); MAGNESIUM 2.2 MG/DL (1.8-2.4); POTASSIUM 4.5 MMOL/L (3.6-5.0); TOTAL PROTEIN 6.9 GM/DL (6.4-8.2)
[2018-08-31 04:54] LABS: BILIRUBIN,URINE NEGATIVE (NEGATIVE); CLARITY,URINE VERY CLOUDY; COLOR,URINE YELLOW; GLUCOSE, URINE (UA) NEGATIVE (NEGATIVE); KETONES,URINE NEGATIVE (NEGATIVE); LEUKOCYTE ESTERASE ,URINE 3+ (NEGATIVE); NITRITE,URINE POSITIVE (NEGATIVE); PH,URINE 6.5 (5-9); PROTEIN,URINE 2+ (NEGATIVE); UROBILINOGEN,URINE NORMAL (NORMAL)
[2018-08-31 05:00] LABS: BACTERIA,URINE MODERATE /HPF; WBC,URINE TNTC /HPF
[2018-08-31 05:10] LABS: AMPHETAMINE SCREEN, URINE NEGATIVE (NEGATIVE); BARBITURATE SCREEN URINE NEGATIVE (NEGATIVE); BENZODIAZEPINES SCREEN URINE NEGATIVE (NEGATIVE); CANNABINOID SCREEN, URINE NEGATIVE (NEGATIVE); COCAINE SCREEN URINE NEGATIVE (NEGATIVE); METHADONE STAT NEGATIVE (NEGATIVE); METHAMPHETAMINE SCREEN URINE S NEGATIVE (NEGATIVE); OPIATE SCREEN URINE NEGATIVE (NEGATIVE); OXYCODONE STAT NEGATIVE (NEGATIVE); PROPOXYPHENE STAT NEGATIVE (NEGATIVE); TRICYCLIC ANTIDEPRESSANTS SCRE NEGATIVE (NEGATIVE)
--- NOTE | 2018-08-31 06:43 | Diagnostic Imaging Report ---
EXAMINATION: Portable erect AP chest at 5:05 AM INDICATION: Chest pain There is a better inspiratory effort on this study than on the prior exam of 07/21/2018. Allowing for this technical factor, the heart is borderline enlarged but similar to the prior study. The sternotomy wires and surgical clips and the left-sided pacemaker seen previously are again visualized and no different. The lungs are clear. There is no sign of failure, pneumonia or a pleural effusion. Mediastinum is not widened. The osseous structures are intact. IMPRESSION: There is evidence of prior cardiac surgery but there is no sign of an acute cardiopulmonary abnormality. Dictated by: Dictated on workstation # [id number]
--- NOTE | 2018-08-31 07:06 | NUR ---
INTRODUCED SELF TO PT. PT REQUESTS FOOD. NOTIFEID HIM THAT DR IS NOT WANTING HIM TO EAT. DENIES ANY OTHER NEEDS AT THIS TIME.
--- NOTE | 2018-08-31 07:09 | NUR ---
RHETT STANFORD NOTIFIED SHIFT CAPTAIN AND DISPATCH FOR TRANSFER WHICH WILL BE AFTER 0800 WITH THE NEXT CREW.
--- NOTE | 2018-08-31 08:27 | NUR ---
IN TALKING TO PT AT THIS TIME.
[2018-08-31 08:31] VITALS: BP 127/89
== END | disposition short-term general hospital (02) ==
LOC: EDUNIT# 03:24 → ER 03:25
DX: N39.0 Urinary tract infection, site not specified (principal); R07.9 Chest pain, unspecified; E78.5 Hyperlipidemia, unspecified; E11.9 Type 2 diabetes mellitus without complications; I10 Essential (primary) hypertension; E78.00 Pure hypercholesterolemia, unspecified; I25.10 Atherosclerotic heart disease of native coronary artery without angina pectoris; I48.91 Unspecified atrial fibrillation; I42.9 Cardiomyopathy, unspecified; N40.0 Benign prostatic hyperplasia without lower urinary tract symptoms; K21.9 Gastro-esophageal reflux disease without esophagitis; Z87.19 Personal history of other diseases of the digestive system; Z86.718 Personal history of other venous thrombosis and embolism; Z87.01 Personal history of pneumonia (recurrent); Z95.0 Presence of cardiac pacemaker; Z79.82 Long term (current) use of aspirin; Z79.01 Long term (current) use of anticoagulants; Z86.711 Personal history of pulmonary embolism; Z95.1 Presence of aortocoronary bypass graft; Z88.8 Allergy status to other drugs, medicaments and biological substances; Z82.49 Family history of ischemic heart disease and other diseases of the circulatory system; Z80.42 Family history of malignant neoplasm of prostate
CPT/HCPCS: 36415; 71045; 80053; 80306; 81000; 83735; 83874; 83880; 84484; 85025; 85379; 85610; 85730; 87077; 87088; 87186; 93005; 93041; 96361; 96374

== ENCOUNTER 2018-09-05 00:22 | Emergency (ER) | payer MEDICARE ==
[~2018-09-05] VITALS: Ht 180.3 cm; Wt 94.3 kg
[~2018-09-05 00:22] MED LIST changes: -NITROGLYCERIN 0.4 MG SL TABS BTL 25'S SL ONE; -NS IV 1000 ML 1,000 ML IV SCH; -cefTRIAXone FOR IV USE 1,000 MG in WATER (STERILE) FOR INJECTION 10 ML IV ONE
--- OUTSIDE RECORDS SUMMARY | 2018-09-05 00:27 | XMS REPORT | Clinical Summary ---
Author Author [facility] Organization [facility] Address Unknown Phone Unavailable Care Team Providers Care Fire Support Specialist Name Role Phone PCP Unavailable Allergies Not [...]
[2018-09-05 00:44] LABS: BASOPHILS % (AUTO) 1 % (0-10); EOSINOPHILS # (AUTO) 0.3 10^3/uL (0.0-0.3); EOSINOPHILS % (AUTO) 4 % (0-10); HEMATOCRIT 35 % (40-54); HEMOGLOBIN 11.6 G/DL (13.3-17.7); LYMPHOCYTES # (AUTO) 1.8 X 10^3 (1.0-4.0); LYMPHOCYTES % (AUTO) 30 % (12-44); MEAN CORPUSCULAR HEMOGLOBIN 26 PG (25-34); MEAN CORPUSCULAR HGB CONC 33 G/DL (32-36); MEAN CORPUSCULAR VOLUME 79 FL (80-99); MEAN PLATELET VOLUME 9.6 FL (7.4-10.4); MONOCYTES # (AUTO) 0.6 X 10^3 (0.0-1.0); MONOCYTES % (AUTO) 11 % (0-12); NEUTROPHILS # (AUTO) 3.2 X 10^3 (1.8-7.8); NEUTROPHILS % (AUTO) 54 % (42-75); PLATELET COUNT 214 10^3/uL (130-400); RED CELL DISTRIBUTION WIDTH 17.3 % (10.0-14.5); WHITE BLOOD COUNT 5.9 10^3/uL (4.3-11.0)
[2018-09-05 00:57] LABS: CALCIUM 9.8 MG/DL (8.5-10.1); CREATININE SERUM 1.5 MG/DL (0.60-1.30); MAGNESIUM 1.9 MG/DL (1.8-2.4); POTASSIUM 4.1 MMOL/L (3.6-5.0)
[2018-09-05] MEDS ORDERED: NS IV 1000 ML 1,000 ML IV ONE (01:08)
--- NOTE | 2018-09-05 02:18 | NUR ---
PT TOLD DR. RILEY HE HAS BEEN HAVING CP ON AND OFF. NOT CURRENTLY HAVING CP. NEW ORDERS FOR TROPONIN LEVEL FROM INITIAL LAB WORK.
[2018-09-05] MEDS ORDERED: ASPIRIN 81 MG CHEW (CHILDREN'S ASA) PO ONE (04:30)
--- NOTE | 2018-09-05 07:05 | Diagnostic Imaging Report ---
INDICATION: Status post recent fall, hip pain. TECHNIQUE: Single view chest 2:39 AM. CORRELATION STUDY: 08/31/2018 FINDINGS: Poststernotomy and coronary artery bypass changes. Left-sided pacemaker is present. Heart size enlarged. Vasculature overall within normal limits. Lung mancuso generally clear without significant consolidating infiltrate. IMPRESSION: 1. Poststernotomy changes. Negative for acute cardiopulmonary abnormality. Dictated by: Dictated on workstation # [id number]
--- NOTE | 2018-09-05 07:12 | ED Fall/Injury ---
General Chief Complaint: Hip/Pelvic Problems Stated Complaint: FALL Nursing Triage Note: TO ED [facility]IA [facility] FOR C/O FALL WITH LEFT HIP PAIN. EMS STATES HE WAS STANDING ON FRONT PORCH WHEN THEY ARRIVED WITH WALKER. Source: patient, old records Exam Limitations: no limitations (PIEDAD RILEY MD) History of Present Illness Date Seen by Provider: Sep 05, 2018 Time Seen by Provider: 00:23 Initial Comments This 72-year-old gentleman presents to the emergency room via EMS after having a fall in his home. He reports feeling lightheaded after getting out of the shower. This caused him to fall and strike his left hip. He complains of left hip pain that makes it difficult to bear weight. Patient was just discharged yesterday morning from [facility] after being evaluated for chest pain and elevated troponin. He has a history of coronary artery disease. Cardiac catheterization was performed while he was there. Patient denies any interventions done during angiography. He denies any chest pain at the time of arrival. Occurred: just prior to arrival (PIEDAD RILEY MD) Allergies and Home Medications Allergies Coded Allergies: metoprolol (Unverified Allergy, Unknown, 09/18/14) "sunburn" rivaroxaban (Unverified Allergy, Unknown, 12/18/14) VOMITING/DIARRHEA Home Medications Apixaban 5 Mg Tablet, 5 MG PO BID Prescribed by: PHANI VILLA on 03/12/18 1634 Aspirin 81 Mg Tab.chew, 81 MG PO DAILY Prescribed by: OPHELIA HUNTER on 07/20/18905 Atorvastatin Calcium 40 Mg Tablet, 40 MG PO HS Prescribed by: OPHELIA HUNTER on 07/20/18905 Carvedilol 3.125 Mg Tablet, 3.125 MG PO BID Prescribed by: OPHELIA HUNTER on 07/20/18905 Cefdinir 300 Mg Capsule, 300 MG PO BID Prescribed by: PIEDAD WIN on 07/21/182026 Ciprofloxacin HCl 500 Mg Tablet, 500 MG PO BID, (Reported) Enalapril Maleate 2.5 Mg Tablet, 2.5 MG PO BID Prescribed by: OPHELIA HUNTER on 07/20/18905 Famotidine 20 Mg Tablet, 20 MG PO BID Prescribed by: PIEDAD WIN on 07/21/182020 Isosorbide Mononitrate 30 Mg Tab.er.24h, 30 MG PO DAILY Prescribed by: PIEDAD WIN on 07/21/182020 Levofloxacin 500 Mg Tablet, 500 MG PO DAILY Prescribed by: PIEDAD WIN on 03/08/18 1411 Multivitamin 1 Each Tablet, 1 TAB PO DAILY, (Reported) [place] 3 Polyunsat Fatty Acids 1,000 Mg Cap, 1,000 MG PO DAILY, (Reported) Omeprazole 20 Mg Capsule.dr, 20 MG PO BID, (Reported) Omeprazole 40 Mg Capsule.dr, 40 MG PO DAILY Prescribed by: PIEDAD WIN on 07/21/182020 Patient Home Medication List Home Medication List Reviewed: Yes (PIEDAD RILEY MD) Review of Systems Review of Systems Constitutional: no symptoms reported Eyes: No Symptoms Reported Ears, Nose, Mouth, Throat: no symptoms reported Respiratory: no symptoms reported Cardiovascular: see HPI Gastrointestinal: no symptoms reported Genitourinary: no symptoms reported Musculoskeletal: see HPI Skin: no symptoms reported Psychiatric/Neurological: No Symptoms Reported (PIEDAD RILEY MD) Past Wzsgblo-Bxrleq-Cquozo Hx Past Med/Social Hx: Reviewed Nursing Past Med/Soc Hx (PIEDAD RILEY MD) Patient Social History Alcohol Use: Rarely Uses Number of Drinks Today: AA Alcohol Beverage of Choice: Beer Recreational Drug Use: Yes Drug of Choice: distant past history of marijuana use Smoking Status: Never a Smoker 2nd Hand Smoke Exposure: Yes (Father was a heavy smoker in his youth) Recent Foreign Travel: No Contact w/Someone Who Travel: No Recent Infectious Disease Expo: No Recent Hopitalizations: No (PIEDAD RILEY MD) Immunizations Up To Date Tetanus Booster (TDap): Unknown PED Vaccines UTD: Yes Date of Pneumonia Vaccine: Feb 28, 2013 Date of Influenza Vaccine: Dec 27, 2016 (PIEDAD RILEY MD) Seasonal Allergies Seasonal Allergies: No (PIEDAD RILEY MD) Past Medical History Surgeries: Yes Abdominal, Cardiac, CABG, Eye Surgery, Open Heart Surgery, Pacemaker, Vascular Surgery Respiratory: Yes Pneumonia, Pulmonary Embolism Currently Using CPAP: No Currently Using BIPAP: No Cardiac: Yes (CABG 07/2016; PACEMAKER; BIGEMINIY; LBBB; 1ST DEGREE AV BLOCK) Atrial Fibrillation, Cardiomyopathy, Coronary Artery Disease, Deep Vein Thrombosis, Heart Murmur, High Cholesterol, Hypertension, Irregular Heartbeat Neurological: No Reproductive Disorders: No Sexually Transmitted Disease: No HIV/AIDS: No Genitourinary: Yes (INDWELLING CATHETER) Benign Prostatic Hyperpl, Kidney Infection, Bladder Infection, Neurogenic Bladder, UTI-Chronic Gastrointestinal: Yes (RIGHT INGUINAL HERNIA REPAIR 08/2017) Gastroesophageal Reflux, Chronic Constipation Musculoskeletal: Yes (L hip fx, right ankle broken) Fractures Endocrine: No HEENT: Yes Cataract Loss of Vision: Denies Hearing Impairment: Denies Cancer: No Psychosocial: No Integumentary: No Blood Disorders: No Adverse Reaction/Blood Tranf: No (PIEDAD RILEY MD) Family Medical History Reviewed Nursing Family Hx (PIEDAD RILEY MD) Cancer (LINING OF ABD CAVITY, AT AGE 80) 03 MOTHER Chest pain (FATHER OF [place] AT AGE 83) 03 FATHER Congestive heart failure 03 FATHER Family history: Arthritis 03 MOTHER, Onset:60 years & older Family history: Cardiovascular disease 03 FATHER Heart disease 03 FATHER Hypercholesterolemia 03 FATHER 03 MOTHER Myocardial infarction 03 FATHER Prostate cancer (DIAGNOSED AT 72 OR 73 PER PT) 03 FATHER Stroke 09 SISTER Visual impairment (SISTER WEARS GLASSES ) 09 SISTER No Family History of: Abdominal aortic aneurysm [place]'s disease Alcoholism Aphasia Cancer of colon Cataract Congenital heart disease Cystic fibrosis Dementia Dysphagia Family history: Allergy Family history: Alzheimer's disease Family history: Asthma Family history: Breast disease Family history: Coronary thrombosis Family history: Diabetes mellitus Family history: Gastrointestinal disease Family history: Glaucoma Family history: Hypertension Family history: Osteoporosis Family history: Thyroid disorder Headache Hearing loss Hereditary disease History of - anemia History of - disorder History of - respiratory disease History of drug abuse Human immunodeficiency virus (HIV) seropositivity Infertile Kidney disease Malignant neoplasm of lung Parkinson's disease Psychotic disorder Seizure disorder Tuberculosis Cancer, CAD Over 55 Years Old, CVA (PIEDAD RILEY MD) Physical Exam Vital Signs Vital Signs - First Documented 09/05/18 00:24 Temp 98.2 Pulse 81 Resp 18 B/P (MAP) 129/79 (96) (MARKIE FREIRE MD) Vital Signs Capillary Refill : Less Than 3 Seconds (PIEDAD RILEY MD) Height, Weight, BMI Height: 5'11.00" Weight: 208lbs. 0oz. 94.150710bm; 29.9 BMI Method:Stated General Appearance: WD/WN, no apparent distress HEENT: PERRL/EOMI, normal ENT inspection, pharynx normal Neck: normal inspection Cardiovascular: regular rate, rhythm, no edema, no murmur Respiratory: lungs clear, normal breath sounds, no respiratory distress, no accessory muscle use Gastrointestinal: normal bowel sounds, non tender, soft Extremities: normal inspection, no pedal edema, other (tenderness over the left hip. Minimal pain with rotation of the left hip. Extremities otherwise unremarkable) Neurologic/Psychiatric: inspector precision II-XII nml as tested, no motor/sensory deficits, alert, normal mood/affect, oriented x 3 Skin: normal color, warm/dry (PIEDAD RILEY MD) Progress/Results/Core Measures Results/Orders Lab Results Laboratory Tests Test 09/05/18 00:30 09/05/18 03:17 09/05/18 06:59 Range/Units White Blood Count 5.9 4.3-11.0 10^3/uL Red Blood Count 4.48 4.35-5.85 10^6/uL Hemoglobin 11.6 L 13.3-17.7 G/DL Hematocrit 35 L 40-54 % Mean Corpuscular Volume 79 L 80-99 FL Mean Corpuscular Hemoglobin 26 25-34 PG Mean Corpuscular Hemoglobin Concent 33 32-36 G/DL Red Cell Distribution Width 17.3 H 10.0-14.5 % Platelet Count 214 130-400 10^3/uL Mean Platelet Volume 9.6 7.4-10.4 FL Neutrophils (%) (Auto) 54 42-75 % Lymphocytes (%) (Auto) 30 12-44 % Monocytes (%) (Auto) 11 0-12 % Eosinophils (%) (Auto) 4 0-10 % Basophils (%) (Auto) 1 0-10 % Neutrophils # (Auto) 3.2 1.8-7.8 X 10^3 Lymphocytes # (Auto) 1.8 1.0-4.0 X 10^3 Monocytes # (Auto) 0.6 0.0-1.0 X 10^3 Eosinophils # (Auto) 0.3 0.0-0.3 10^3/uL Basophils # (Auto) 0.0 0.0-0.1 10^3/uL Sodium Level 132 L 135-145 MMOL/L Potassium Level 4.1 3.6-5.0 MMOL/L Chloride Level 99 98-107 MMOL/L Carbon Dioxide Level 20 L 21-32 MMOL/L Anion Gap 13 5-14 MMOL/L Blood Urea Nitrogen 32 H 7-18 MG/DL Creatinine 1.50 H 0.60-1.30 MG/DL Estimat Glomerular Filtration Rate 46 BUN/Creatinine Ratio 21 Glucose Level 82 70-105 MG/DL Calcium Level 9.8 8.5-10.1 MG/DL Magnesium Level 1.9 1.8-2.4 MG/DL Troponin I 0.075 H 0.111 H 0.110 H <0.028 NG/ML B-Type Natriuretic Peptide 184.3 H <100.0 PG/ML (MARKIE FREIRE MD) My Orders Orders - MARKIE FREIRE MD Troponin I (09/05/18 06:45) Ekg Tracing (09/05/18 06:45) Heart Healthy (09/05/18 Breakfast) Docusate Sodium Capsule (Colace Capsule) (09/05/18 11:45) Physical Therapy Oder (09/05/18 15:21) (MARKIE FREIRE MD) Medications Given in ED Current Medications Medications Dose Ordered Sig/Sukhjinder Route Start Time Stop Time Status Last Admin Dose Admin Docusate Sodium 100 mg ONCE ONCE PO 09/05/18 11:45 09/05/18 11:46 DC 09/05/18 12:49 100 MG (MARKEI FREIRE MD) Vital Signs/I&O 09/05/18 00:24 Temp 98.2 Pulse 81 Resp 18 B/P (MAP) 129/79 (96) (MARKIE FREIRE MD) Blood Pressure Mean: 96 Progress Progress Note #1: Time: 04:30 Progress Note Patient was initially seen and examined for left hip pain. X-rays were reviewed and no fracture was identified. While discussing his imaging results, patient states that he had a brief episode of chest pain 30 minutes prior to that. Troponin was obtained. It was slightly above the lab range cut off but not critical. A repeat troponin was done more than 2 hours later. It was slightly higher. I discussed the case with Dr. Esparza at [facility] who was on-call for Dr. Healy. Records were obtained from his prior visit and were reviewed. Dr. Esparza did not feel transfer for admission was appropriate as patient has already had 2 cardiac catheters with no significant change this year. He had one in June and one a few days ago. Patient could be admitted at [facility] due to admission diversion. Progress Note #2: Time: 07:15 Progress Note Serial troponin is being performed along with repeat EKG. Care of this patient is being transitioned to Dr. Dr. Freire at this time. (PIEDAD RILEY MD) Progress Note : Progress Note 0800: Repeat troponin is negative and EKG is unchanged. Patient is actually chest pain-free. Further discussion with the patient, he is now reporting that he is concerned about his safety at home and I believe this may be a basis for his problems overall. We will get social work to evaluate to see if he qualifies for placement anywhere especially in light of recent hospitalization for his heart catheter in other problems at [facility]. This has been initiated. Pending social media senior associate evaluation. 1200: Social work has evaluated and they are working on placement. Patient has tolerated breakfast without difficulty and has no complaints currently. Continue to monitor. 1410. Blood pressure 121/74 with heart rate 79 and O2 sat 98% on room air. Patient resting peacefully. We'll believe we may have placement at [facility] but insurance approval is pending. Continue monitor. 1520: We will go ahead and get physical therapy evaluation due to weakness and falls pending fci placement. Monitor patient. 1650: Patient's insurance has denied [facility]ci placement. I have spoken with Dr. Perea about follow-up and home health. product development worker has done all the paperwork for home health from her standpoint and she'll fax the paperwork report to them in the morning. Dr. Perea has set up appointment for him at 11:00 with Jadyn at the clinic. The clinic will pick him up at [phone] and take him to the appointment at home. He is trying to find a ride home currently thinks he has a way to get home. He does have a walker and does use that. At this point we are out of options otherwise and the patient feels like he can try this at home with understanding that he'll return if it is not working or there is other concerns. Discharged home with return precautions. Patient verbalize understanding instructions and agreement with plan. (MARKIE FREIRE MD) EKG : EKG Time: 00:35 Rate: 80 Comment Atrial paced complexes with chronic left bundle branch block. Similar to prior. No acute ischemic changes identified. (PIEDAD RILEY MD) EKG : EKG Time: 06:58 Rate: 80 Comment Paced rhythm with left bundle branch block. Unchanged from previous done at 0035 this morning. No evidence of ST elevation [place]. Interpreted by me. (MARKIE FREIRE MD) Diagnostic Imaging Diagonstic Imaging: Xray Plain Films/CT/US/NM/MRI: pelvis, hip Comments X-ray of the left hip and pelvis viewed by me. Report not yet available. No acute injuries identified. Diagonstic Imaging: Xray Plain Films/CT/US/NM/MRI: chest Comments Chest x-ray report reviewed. See below: NAME: JAVIJORGE ALBERTO Garnett MED REC#: [id number] PT STATUS: REG ER : 1945 PHYSICIAN: IPEDAD RILEY MD ADMIT DATE: 09/05/18/ER Draft Date of Exam:09/05/18 CHEST 1 VIEW, AP/PA ONLY INDICATION: Status post recent fall, hip pain. TECHNIQUE: Single view chest 2:39 AM. CORRELATION STUDY: 08/31/2018 FINDINGS: Poststernotomy and coronary artery bypass changes. Left-sided pacemaker is present. Heart size enlarged. Vasculature overall within normal limits. Lung mancuso generally clear without significant consolidating infiltrate. IMPRESSION: 1. Poststernotomy changes. Negative for acute cardiopulmonary abnormality. Dictated on workstation # [id number] Dict: 09/05/18626 Trans: 09/05/18 07[facility] [id number] Interpreted by: JOSESITO STANTON DO (PIEDAD RILEY MD) Comments [facility] [place], [place] NAME: JORGE ALBERTO CALDWELL MED REC#: [id number] PT STATUS: REG ER : 1945 PHYSICIAN: PIEDAD RILEY MD ADMIT DATE: 09/05/18/ER Draft Date of Exam:09/05/18 PELVIS WITH LEFT HIP 2-3 VIEWS INDICATION: Left hip pain post fall TECHNIQUE: AP pelvis along with 2 views left hip 1:04 AM CORRELATION STUDY: None FINDINGS: Moderate amount of overlying bowel gas and stool does obscure detail. Pelvis however appears to be intact with evidence for acute displaced pelvic fracture. Pectineal lines and furnace operator and tender rings maintained. SI joints pubic symphysis preserved. Right hip joints, mild narrowing. Left hip with mildly advanced degenerative change. Bony tubercular pattern intact. Femoral head acetabular relationship is maintained. IMPRESSION: Negative for acute pelvic and/or left hip fracture. Dictated on workstation # [id number] Dict: 09/05/18 0648 Trans: 09/05/18 0755 CV [id number] Interpreted by: JOSESITO STANTON DO Electronically signed by: (MARKIE FREIRE MD) Departure Impression Primary Impression: Contusion of left hip Qualified Codes: S70.02XA - Contusion of left hip, initial encounter Additional Impression: Frequent falls Disposition: 01 HOME, SELF-CARE Condition: Stable Departure-Patient Inst. Decision time for Depature: 17:02 (MARKIE FREIRE MD) Referrals: [facility] (PCP/Family) Primary Care Physician Patient Instructions: Contusion (DC), Preventing Falls Add. Discharge Instructions: All discharge instructions reviewed with patient and/or family. Voiced understanding. Use your walker at all times when moving about to prevent falls. You will follow-up at [facility] at 11 AM tomorrow morning with severe. They will pick you up at 1040 to 10:45 AM. Continue home medications as previously prescribed. Return for worse pain, fever, vomiting, weakness, breathing problems, difficulties with walking or going to the bathroom or other concerns as needed. PIEDAD RILEY MD Sep 05, 2018 07:12 MARKIE FREIRE MD Sep 05, 2018 08:07
--- NOTE | 2018-09-05 07:29 | NUR ---
PATIENT CONCERN ABOUT GOING HOME ALONE WOULD LIKE TO TALK TO A ENTRY LEVEL ACCOUNTING CLERK.
--- NOTE | 2018-09-05 07:55 | Diagnostic Imaging Report ---
INDICATION: Left hip pain post fall TECHNIQUE: AP pelvis along with 2 views left hip 1:04 AM CORRELATION STUDY: None FINDINGS: Moderate amount of overlying bowel gas and stool does obscure detail. Pelvis however appears to be intact with evidence for acute displaced pelvic fracture. Pectineal lines and street cleaning equipment operator rings maintained. SI joints pubic symphysis preserved. Right hip joints, mild narrowing. Left hip with mildly advanced degenerative change. Bony tubercular pattern intact. Femoral head acetabular relationship is maintained. IMPRESSION: Negative for acute pelvic and/or left hip fracture. Dictated by: Dictated on workstation # [id number]
--- NOTE | 2018-09-05 09:03 | NUR ---
NAILER HAND HERE.
--- NOTE | 2018-09-05 09:38 | NUR ---
FOOD TRAY ORDERED.
--- NOTE | 2018-09-05 09:39 | NUR ---
CM/SS referral sent to [facility] for placement.
--- NOTE | 2018-09-05 09:42 | NUR ---
SS CON'T TO WORK ON FINDNG HIM PLACEMENT
--- NOTE | 2018-09-05 10:00 | NUR ---
ATE 100% OF FOOD TRAY
--- NOTE | 2018-09-05 11:41 | NUR ---
SS CALLED BACK AND REPORT THAT 3 [facility] ARE REVIEWING HIS CASE. Addendum: 09/05/18 at 1145 by PMCCLURE PATIENT NOTIFIED.
[2018-09-05] MEDS ORDERED: DOCUSATE SODIUM 100 MG (COLACE) CAP PO ONE (11:45)
--- NOTE | 2018-09-05 12:35 | NUR ---
PATIENT REQUEST SOMETING FOR HIS CONSTIPATION. NOTIFIED.
--- NOTE | 2018-09-05 12:49 | NUR ---
PO MEDS GIVEN REMOTE TO TV GIVEN.
--- NOTE | 2018-09-05 13:48 | NUR ---
CON'T TO WAIT FOR SS TO CALL BACK ABOUT HALF-WAY PLACEMENT.
--- NOTE | 2018-09-05 14:00 | NUR ---
[facility]IA [facility] HAS ACCEPTED PATIENT WAITING FOR 1 MORE ACCEPTANCE THAN WILL COME GET HIM. PATIENT INFROMED.
--- NOTE | 2018-09-05 15:12 | NUR ---
NO CHANGE CON'T TO WAIT FOR [facility].
--- NOTE | 2018-09-05 15:15 | NUR ---
SEE CHART FOR CON'T VITALS PATIENT REMAINS PACED
--- NOTE | 2018-09-05 15:24 | NUR ---
PATIENT INFORMED THAT PT HAS TO COME AND EVALUATE HIM
--- NOTE | 2018-09-05 15:40 | NUR ---
CM/SS Patient's insurance denied the SNF stay at [facility]. PT to evaluate the patient for safety in function and possible return to home. Patient could have HHC at home for PT/OT if needed.
--- NOTE | 2018-09-05 15:54 | Physical Therapy Evaluation ---
PT Evaluation-General Medical Diagnosis Admission Date Medical Diagnosis: weakness, falls Onset Date: Sep 05, 2018 Therapy Diagnosis Therapy Diagnosis: impaired mobility, strength, endurance, balance Height/Weight Height (Feet): 5 Height (Inches): 11.00 Weight (Pounds): 208 Weight (Ounces): 0 Referral Physician: Gary Lewis MD Reason for Referral: Evaluation/Treatment Medical History Pertinent Medical History: CABG, CAD, HTN, PVD, Renal Insufficiency Additional Medical History Past Medical History Surgeries: Yes Abdominal, Cardiac, CABG, Eye Surgery, Open Heart Surgery, Pacemaker, Vascular Surgery Respiratory: Yes Pneumonia, Pulmonary Embolism Currently Using CPAP: No Currently Using BIPAP: No Cardiac: Yes (CABG 07/2016; PACEMAKER; BIGEMINIY; LBBB; 1ST DEGREE AV BLOCK) Atrial Fibrillation, Cardiomyopathy, Coronary Artery Disease, Deep Vein Thrombosis, Heart Murmur, High Cholesterol, Hypertension, Irregular Heartbeat Neurological: No Reproductive Disorders: No Sexually Transmitted Disease: No HIV/AIDS: No Genitourinary: Yes (INDWELLING CATHETER) Benign Prostatic Hyperpl, Kidney Infection, Bladder Infection, Neurogenic Bladder, UTI-Chronic Gastrointestinal: Yes (RIGHT INGUINAL HERNIA REPAIR 08/2017) Gastroesophageal Reflux, Chronic Constipation Musculoskeletal: Yes (L hip fx, right ankle broken) Fractures Endocrine: No HEENT: Yes Cataract Loss of Vision: Denies Hearing Impairment: Denies Cancer: No Psychosocial: No Integumentary: No Blood Disorders: No Reviewed History: Yes Social History Home: Single Level Current Living Status: Alone Entry Into Home: Stairs Without Railing PT Steps Into Home: 3 Prior/Core FIM Prior Level of Function Therapy Code Descriptions/Definitions Functional [place] Measure: 0=Not Assessed/NA 4=Minimal Assistance 1=Total Assistance 5=Supervision or Setup 2=Maximal Assistance 6=Modified [place] 3=Moderate Assistance 7=Complete [place] Therapy Quality Codes: 6 Independent with activity with or without an assistive device 5 Patient requires set up or clean up by helper. Patient completes activity by themselves 4 Supervision or touching assist (CGA). [place] provide cues , steadying assist 3 The helper provides less than half the effort to complete the activity 2 The helper provides more than half the effort to complete the activity 1 Dependent. The helper does all the effort to complete an activity 7 Patient refused to complete or attempt activity 9 The patient did not perform the activity before the current illness or injury 88 Not attempted due to Medical conditions or safety concerns Functional Abilities and Goals: Independent: Patient completed the activities by him/herself, with or without an assistive device, with no assistance from a helper. Needed Some Help: Patient needed partial assistance from another person to complete activities. Dependent: A helper completed the activities for the patient. Unknown: Not Applicable: Bed Mobility: 7 Transfers (B,C,W/C) (FIM): 7 Gait: 7 Stairs: 7 Indoor Mobility (Ambulation): Independent Stairs: Independent PT Evaluation-Current Subjective Patient in bed pre tx, agrees to PT, has unrated pain in left hip. Patient states he has already had xrays done on his hip and says no fracture. Patient states he has had issues with orthostatic hypotension and has decreased circulation in his legs. Patient does have some discoloration in his calves especially on the left side. Pt/Family Goals "to get stronger and stop falling" Objective Patient Orientation: Person, Place, Situation ROM/Strength ROM Lower Extremities WNL Strength Lower Extremities RLE (hip flexion 3+/5, knee flexion 3+/5, knee extension 4/5, dorsiflexion 5/5), LLE (hip flexion 3+/5, knee flexion 4/5, knee extension 4+/5, dorsiflexion 5/5) Neuromuscular (Tone, Coordination, Reflexes) Patient has no complaints of numbness or tingling in his face, has decreased peripheral vision but seems to be bilaterally, has good tracking bilaterally. Patient has no complaints of changes in hearing. No abnormal clonus and negative babinski. Sensory Vision: Wears Glasses Hearing: Functional Sensation Right Lower Extremit: Intact Sensation Left Lower Extremity: Intact Transfers Therapy Code Descriptions/Definitions Functional [place] Measure: 0=Not Assessed/NA 4=Minimal Assistance 1=Total Assistance 5=Supervision or Setup 2=Maximal Assistance 6=Modified [place] 3=Moderate Assistance 7=Complete [place] Transfers (B, C, W/C) (FIM): 4 Scootin Rollin Supine to/from Sit: 5 Sit to/from Stand: 4 bed t/f WC(FIM only if WC use): 4 Patient performs bed mobility with SBA, supine <-> sit with SBA, sit <-> stand with CGA, transfers with CGA. Patient needs cues for hand placement and positioning. Gait Mode of Locomotion: Walk Anticipated Mode of Locomotion: Walk Gait (FIM): 1 Distance: 30' Gait Level of Assist: 4 Gait Persons Needed: 1 Gait Assistive Device: FWW Comments/Gait Description Patient ambulated 30' with a rolling walker with CGA. He does not seem to be able to bear any weight on his left leg but ambulates well using a rolling walker, bearing weight on his arms to swing legs through. Steady, no LOB. Balance Sitting Static: Normal Sitting Dynamic: Normal Standing Static: Good Standing Dynamic: Good Assessment/Needs Patient has impaired BLE strength, balance, endurance, and difficulty with ambulation. Patient would like to go to a jail for a short time and get rehab to increase his strength and mobility to improve his independence at home. Patient would have difficulty with the stairs going into his home at this time. Rehab Potential: Fair PT Plan Problem List Problem List: Activity Tolerance, Functional Strength, Safety, Balance, Gait, Transfer Treatment/Plan Treatment Plan: Discontinue PT Treatment Plan: Other Treatment Duration: Sep 05, 2018 Frequency: Estimated Hrs Per Day: Other Patient and/or Family Agrees t: Yes Safety Risks/Education Patient Education: Gait Training, Transfer Techniques, Correct Positioning, Safety Issues Teaching Recipient: Patient Teaching Methods: Demonstration, Discussion Response to Teaching: Reinforcement Needed Discharge Recommendations Plan DC from the ER to jail. Discontinue PT at this time. Therapy D/C Recommendations: Fpc (TCU/NH) Time/GCodes Time In: 1530 Time Out: 1545 Total Billed Treatment Time: 15 Total Billed Treatment 1 visit EVGabrielle 15' SEB HUMPHREY PT Sep 05, 2018 15:54
--- NOTE | 2018-09-05 16:30 | NUR ---
PATIENT INSURANCE CO. DECLINED TO SEND HIM TO [facility]. DR FREIRE TALKED WITH AND PATIENT WILL SENT HIM UP ON HOME HEALTH . PATIENT WILL CALL FRIEND TO COME GET HIM. [facility] HAS MADE ARRANGED THAT THEY WILL COME GET HIM FOR HIS APPOINTMENT TOMORROW.
[2018-09-05 17:05] VITALS: BP 147/89
== END 2018-09-05 17:05 | disposition home or self-care (01) ==
LOC: EDUNIT# 00:22 → ER 00:23
DX: S70.02XA Contusion of left hip, initial encounter (principal); R29.6 Repeated falls; I25.10 Atherosclerotic heart disease of native coronary artery without angina pectoris; I10 Essential (primary) hypertension; E78.00 Pure hypercholesterolemia, unspecified; I42.9 Cardiomyopathy, unspecified; I48.91 Unspecified atrial fibrillation; N40.0 Benign prostatic hyperplasia without lower urinary tract symptoms; Z80.0 Family history of malignant neoplasm of digestive organs; Z87.81 Personal history of (healed) traumatic fracture; Z87.01 Personal history of pneumonia (recurrent); Z86.718 Personal history of other venous thrombosis and embolism; Z86.711 Personal history of pulmonary embolism; Z95.1 Presence of aortocoronary bypass graft; Z95.0 Presence of cardiac pacemaker; Z88.8 Allergy status to other drugs, medicaments and biological substances; Z79.82 Long term (current) use of aspirin; Z87.440 Personal history of urinary (tract) infections; Z82.49 Family history of ischemic heart disease and other diseases of the circulatory system; Z80.42 Family history of malignant neoplasm of prostate; W01.198A Fall on same level from slipping, tripping and stumbling with subsequent striking against other object, initial encounter; Y92.009 Unspecified place in unspecified non-institutional (private) residence as the place of occurrence of the external cause
CPT/HCPCS: 36415; 71045; 80048; 83735; 83880; 84484; 85025; 93005; 93041; 96360; 96361

== ENCOUNTER 2018-09-15 19:05 | Observation (INO) | payer MEDICAID, MEDICARE ==
[~2018-09-15] VITALS: Ht 175.3 cm; Wt 91.9 kg
--- NOTE | 2018-09-15 19:11 | ED Chest Pain ---
General Chief Complaint: Chest Pain Stated Complaint: CP Source: patient Exam Limitations: no limitations History of Present Illness Date Seen by Provider: Sep 15, 2018 Time Seen by Provider: 19:09 Initial Comments To ER per EMS from a business in [place] with reports of chest pain. Chest pain is intermittent, he was given 324 mg of aspirin in route to the hospital. He was given one sublingual nitroglycerin and 4 mg of Zofran. Currently he has no pain, states that his pain "comes and goes". Denies shortness of breath. His extensive cardiac history. Reportedly has no electricity at his house so he goes to local [employer] or [employer] and [place] during the hottest part of the day and works on his computer. He was working on his computer when EMS arrived. He is chest pain-free upon arrival to ER. He has a history of CABG on 08/17/18 and dual-chamber pacemaker placement on 08/21/16. Primary coach wirer here is Dr. Santos. He had a heart catheter done here on July 18 of [address] by Dr. Sullivan which was normal. Timing/Duration: changing over time, intermittent Severity/Quality: moderate, aching Radiation: no radiation Activities at Onset: none Prior CP/Workup: angina ASA po REFURBISH TECHNICIAN: No NTG SL REFURBISH TECHNICIAN: No Associated Symptoms: nausea/vomiting; No shortness of breath Allergies and Home Medications Allergies Coded Allergies: metoprolol (Unverified Allergy, Unknown, 09/18/14) "sunburn" rivaroxaban (Unverified Allergy, Unknown, 12/18/14) VOMITING/DIARRHEA Home Medications Apixaban 5 Mg Tablet, 5 MG PO BID Prescribed by: PHANI VILLA on 03/12/18 1634 Aspirin 81 Mg Tab.chew, 81 MG PO DAILY Prescribed by: OPHELIA HUNTER on 07/20/18905 Atorvastatin Calcium 40 Mg Tablet, 40 MG PO HS Prescribed by: OPHELIA HUNTER on 07/20/18905 Carvedilol 3.125 Mg Tablet, 3.125 MG PO BID Prescribed by: OPHELIA HUNTER on 07/20/18905 Cefdinir 300 Mg Capsule, 300 MG PO BID Prescribed by: PIEDAD WIN on 07/21/182026 Ciprofloxacin HCl 500 Mg Tablet, 500 MG PO BID, (Reported) Enalapril Maleate 2.5 Mg Tablet, 2.5 MG PO BID Prescribed by: OPHELIA HUNTER on 07/20/18 09 Famotidine 20 Mg Tablet, 20 MG PO BID Prescribed by: PIEDAD WIN on 07/21/182020 Isosorbide Mononitrate 30 Mg Tab.er.24h, 30 MG PO DAILY Prescribed by: PIEDAD WIN on 07/21/182020 Levofloxacin 500 Mg Tablet, 500 MG PO DAILY Prescribed by: PIEDAD WIN on 03/08/18 1411 Multivitamin 1 Each Tablet, 1 TAB PO DAILY, (Reported) [place] 3 Polyunsat Fatty Acids 1,000 Mg Cap, 1,000 MG PO DAILY, (Reported) Omeprazole 20 Mg Capsule.dr, 20 MG PO BID, (Reported) Omeprazole 40 Mg Capsule.dr, 40 MG PO DAILY Prescribed by: PIEDAD WIN on 07/21/182020 Patient Home Medication List Home Medication List Reviewed: Yes Review of Systems Review of Systems Constitutional: see HPI EENTM: No Symptoms Reported Respiratory: No Symptoms Reported Cardiovascular: See HPI, Chest Pain Gastrointestinal: See HPI Genitourinary: No Symptoms Reported Musculoskeletal: no symptoms reported Skin: no symptoms reported Psychiatric/Neurological: No Symptoms Reported Endocrine: No Symptoms Reported Hematologic/Lymphatic: No Symptoms Reported Past Rnnibav-Zwsjbv-Pumcnv Hx Patient Social History Alcohol Beverage of Choice: Beer Drug of Choice: distant past history of marijuana use 2nd Hand Smoke Exposure: Yes (Father was a heavy smoker in his youth) Recent Hopitalizations: No Immunizations Up To Date Tetanus Booster (TDap): Unknown PED Vaccines UTD: Yes Date of Pneumonia Vaccine: Feb 28, 2013 Date of Influenza Vaccine: Dec 27, 2016 Seasonal Allergies Seasonal Allergies: No Past Medical History Surgeries: Yes Abdominal, Cardiac, CABG, Eye Surgery, Open Heart Surgery, Pacemaker, Vascular Surgery Respiratory: Yes Pneumonia, Pulmonary Embolism Currently Using CPAP: No Currently Using BIPAP: No Cardiac: Yes (CABG 07/2016; PACEMAKER; BIGEMINIY; LBBB; 1ST DEGREE AV BLOCK) Atrial Fibrillation, Cardiomyopathy, Coronary Artery Disease, Deep Vein Thrombosis, Heart Murmur, High Cholesterol, Hypertension, Irregular Heartbeat Neurological: No Reproductive Disorders: No Sexually Transmitted Disease: No HIV/AIDS: No Genitourinary: Yes (INDWELLING CATHETER) Benign Prostatic Hyperpl, Kidney Infection, Bladder Infection, Neurogenic Bladder, UTI-Chronic Gastrointestinal: Yes (RIGHT INGUINAL HERNIA REPAIR 08/2017) Gastroesophageal Reflux, Chronic Constipation Musculoskeletal: Yes (L hip fx, right ankle broken) Fractures Endocrine: No HEENT: Yes Cataract Loss of Vision: Denies Hearing Impairment: Denies Cancer: No Psychosocial: No Integumentary: No Blood Disorders: No Adverse Reaction/Blood Tranf: No Family Medical History Cancer (LINING OF ABD CAVITY, AT AGE 80) 03 MOTHER Chest pain (FATHER OF NE AT AGE 83) 03 FATHER Congestive heart failure 03 FATHER Family history: Arthritis 03 MOTHER, Onset:60 years & older Family history: Cardiovascular disease 03 FATHER Heart disease 03 FATHER Hypercholesterolemia 03 FATHER 03 MOTHER Myocardial infarction 03 FATHER Prostate cancer (DIAGNOSED AT 72 OR 73 PER PT) 03 FATHER Stroke 09 SISTER Visual impairment (SISTER WEARS GLASSES ) 09 SISTER No Family History of: Abdominal aortic aneurysm [place]'s disease Alcoholism Aphasia Cancer of colon Cataract Congenital heart disease Cystic fibrosis Dementia Dysphagia Family history: Allergy Family history: Alzheimer's disease Family history: Asthma Family history: Breast disease Family history: Coronary thrombosis Family history: Diabetes mellitus Family history: Gastrointestinal disease Family history: Glaucoma Family history: Hypertension Family history: Osteoporosis Family history: Thyroid disorder Headache Hearing loss Hereditary disease History of - anemia History of - disorder History of - respiratory disease History of drug abuse Human immunodeficiency virus (HIV) seropositivity Infertile Kidney disease Malignant neoplasm of lung Parkinson's disease Psychotic disorder Seizure disorder Tuberculosis Cancer, CAD Over 55 Years Old, CVA Physical Exam Vital Signs Vital Signs - First Documented 09/15/18 19:05 Temp 99.3 Pulse 82 Resp 16 B/P (MAP) 104/70 (81) O2 Delivery Room Air Capillary Refill : Height, Weight, BMI Height: 5'11.00" Weight: 208lbs. 0oz. 94.877573sf; 29.9 BMI Method:Stated General Appearance: No Apparent Distress, WD/WN, Other (smiling laughing and joking with us well-appearing no distress not diaphoretic) HEENT: PERRL/EOMI, TMs Normal Respiratory: Normal Breath Sounds, No Accessory Muscle Use, No Respiratory Distress Cardiovascular: Regular Rate, Rhythm, Normal Peripheral Pulses Gastrointestinal: Normal Bowel Sounds, Non Tender, Soft Extremity: Normal Capillary Refill, Normal Inspection Neurologic/Psychiatric: Alert, Oriented x3 Skin: Normal Color, Warm/Dry Progress/Results/Core Measures Results/Orders Lab Results Laboratory Tests Test 09/15/18 19:11 09/15/18 21:03 Range/Units White Blood Count 5.6 4.3-11.0 10^3/uL Red Blood Count 4.29 L 4.35-5.85 10^6/uL Hemoglobin 11.1 L 13.3-17.7 G/DL Hematocrit 35 L 40-54 % Mean Corpuscular Volume 80 80-99 FL Mean Corpuscular Hemoglobin 26 25-34 PG Mean Corpuscular Hemoglobin Concent 32 32-36 G/DL Red Cell Distribution Width 17.5 H 10.0-14.5 % Platelet Count 228 130-400 10^3/uL Mean Platelet Volume 10.2 7.4-10.4 FL Neutrophils (%) (Auto) 62 42-75 % Lymphocytes (%) (Auto) 24 12-44 % Monocytes (%) (Auto) 12 0-12 % Eosinophils (%) (Auto) 1 0-10 % Basophils (%) (Auto) 1 0-10 % Neutrophils # (Auto) 3.4 1.8-7.8 X 10^3 Lymphocytes # (Auto) 1.4 1.0-4.0 X 10^3 Monocytes # (Auto) 0.7 0.0-1.0 X 10^3 Eosinophils # (Auto) 0.1 0.0-0.3 10^3/uL Basophils # (Auto) 0.1 0.0-0.1 10^3/uL Prothrombin Time 14.2 12.2-14.7 SEC INR Comment 1.1 0.8-1.4 Activated Partial Thromboplast Time 29 24-35 SEC Sodium Level 136 135-145 MMOL/L Potassium Level 4.0 3.6-5.0 MMOL/L Chloride Level 105 98-107 MMOL/L Carbon Dioxide Level 23 21-32 MMOL/L Anion Gap 8 5-14 MMOL/L Blood Urea Nitrogen 18 7-18 MG/DL Creatinine 1.25 0.60-1.30 MG/DL Estimat Glomerular Filtration Rate 56 BUN/Creatinine Ratio 14 Glucose Level 73 70-105 MG/DL Calcium Level 9.5 8.5-10.1 MG/DL Corrected Calcium 9.5 8.5-10.1 MG/DL Magnesium Level 1.7 L 1.8-2.4 MG/DL Total Bilirubin 0.6 0.1-1.0 MG/DL Aspartate Amino Transf (AST/SGOT) 20 5-34 U/L Alanine Aminotransferase (ALT/SGPT) 19 0-55 U/L Alkaline Phosphatase 69 40-136 U/L Myoglobin 67.3 10.0-92.0 NG/ML Troponin I 0.055 H 0.067 H <0.028 NG/ML Total Protein 6.7 6.4-8.2 GM/DL Albumin 4.0 3.2-4.5 GM/DL My Orders Orders - PHANI VILLA APRN Magnesium Oxide Tablet (Mag Ox Tablet) (09/15/18 20:00) Troponin I (09/15/18 21:05) Vital Signs/I&O 09/15/18 09/15/18 19:05 19:05 Temp 99.3 Pulse 82 Resp 16 B/P (MAP) 104/70 (81) O2 Delivery Room Air Departure Communication (Admissions) Time/Spoke to Admitting Phy: 21:47 That's what she was discussed the case with Dr. Molina, will admit, consult cardiology's. Spoke with Dr. Santos, agrees to consult observation status. Impression Primary Impression: Chest pain Disposition: ADMITTED INPATIENT Condition: Stable Admissions Decision to Admit Reason: Admit from ER (General) Decision to Admit/Date: Sep 15, 2018 Time/Decision to Admit Time: 21:47 Departure-Patient Inst. Referrals: [facility] [place] (PCP/Family) Primary Care Physician PHANI VILLA APRN Sep 15, 2018 19:11
[2018-09-15 19:30] LABS: HEMOGLOBIN 11.1 G/DL (13.3-17.7); WHITE BLOOD COUNT 5.6 10^3/uL (4.3-11.0)
[2018-09-15 19:31] LABS: BASOPHILS # (AUTO) 0.1 10^3/uL (0.0-0.1); BASOPHILS % (AUTO) 1 % (0-10); EOSINOPHILS # (AUTO) 0.1 10^3/uL (0.0-0.3); EOSINOPHILS % (AUTO) 1 % (0-10); HEMATOCRIT 35 % (40-54); LYMPHOCYTES # (AUTO) 1.4 X 10^3 (1.0-4.0); LYMPHOCYTES % (AUTO) 24 % (12-44); MEAN CORPUSCULAR HEMOGLOBIN 26 PG (25-34); MEAN CORPUSCULAR HGB CONC 32 G/DL (32-36); MEAN CORPUSCULAR VOLUME 80 FL (80-99); MEAN PLATELET VOLUME 10.2 FL (7.4-10.4); MONOCYTES # (AUTO) 0.7 X 10^3 (0.0-1.0); MONOCYTES % (AUTO) 12 % (0-12); NEUTROPHILS # (AUTO) 3.4 X 10^3 (1.8-7.8); NEUTROPHILS % (AUTO) 62 % (42-75); PLATELET COUNT 228 10^3/uL (130-400); RED CELL DISTRIBUTION WIDTH 17.5 % (10.0-14.5)
[2018-09-15 19:42] LABS: INR 1.1 (0.8-1.4); PROTHROMBIN TIME PATIENT 14.2 SEC (12.2-14.7)
--- NOTE | 2018-09-15 19:48 | Diagnostic Imaging Report ---
EXAMINATION: AP upright chest. INDICATION: Chest pain. COMPARISON: Multiple priors, most recent performed on 09/05/2018. FINDINGS: Left transvenous pacemaker and leads are unchanged in position. There is unchanged linear scarring/atelectasis in the left mid lung. The lungs are otherwise clear. There is unchanged central vascular prominence, without overt edema. No pneumothorax or large pleural effusion. The cardiomediastinal silhouette is unchanged. No acute osseous abnormality is appreciated. Median sternotomy wires appear intact. IMPRESSION: No radiographic evidence of acute chest disease. No significant change from prior. Dictated by: Dictated on workstation # [id number]
[2018-09-15 19:51] LABS: BILIRUBIN,TOTAL 0.6 MG/DL (0.1-1.0); CALCIUM 9.5 MG/DL (8.5-10.1); CREATININE SERUM 1.25 MG/DL (0.60-1.30); MAGNESIUM 1.7 MG/DL (1.8-2.4); TOTAL PROTEIN 6.7 GM/DL (6.4-8.2)
[2018-09-15] MEDS ORDERED: MAGNESIUM OXIDE (MAG-OX)400 MG TAB PO ONE (20:00)
--- NOTE | 2018-09-15 20:45 | NUR ---
ASSISTED PT WITH EMPTYING HURD CATHETER, PT HAD 100 ML OF URINE OUTPUT, PT STATES HE HAD A SHARP PAIN IN L SIDE OF CHEST THAT RADIATED INTO L SHOULDER, STATES HE CHEST NOW FEELS NUMB, PHYSICIAN NOTIFIED OF THIS, PT DENIES ANY OTHER NEEDS OR C/O AT THIS TIME, PT SHOWS NO S/S OF DISTRESS, WILL CONTINUE TO MONITOR
--- OUTSIDE RECORDS SUMMARY | 2018-09-15 21:58 | XMS REPORT | Clinical Summary ---
Author Author [facility] Organization [facility] Address Unknown Phone Unavailable Care Team Providers Care Stemmer Machine Name Role Phone PCP Unavailable Allergies Not [...]
--- NOTE | 2018-09-15 22:00 | NUR ---
PT DENIES ANY NEEDS OR C/O AT THIS TIME, PT SHOWS NO S/S OF DISTRESS, VS STABLE AT THIS TIME, WILL CONTINUE TO MONITOR
--- OUTSIDE RECORDS SUMMARY | 2018-09-15 22:34 | XMS REPORT | Clinical Summary ---
Author Author [facility] Organization [facility] Address Unknown Phone Unavailable Care Team Providers Care [place] Regenerator Name Role Phone PCP Unavailable Allergies Not [...]
--- NOTE | 2018-09-15 23:08 | NUR ---
REPORT GIVEN TO LUCRETIA ON MED/SURG
[2018-09-15 23:30] VITALS: BP 137/86
[2018-09-15 23:45] VITALS: BP 127/82
[2018-09-16] VITALS (9 sets, daily range): BP systolic 114–147; BP diastolic 65–86
[2018-09-16] MEDS ORDERED: NITROGLYCERIN 0.4 MG SL TABS BTL 25'S SL PRN (00:15)
[2018-09-16] MEDS ORDERED: morphine INJ 4 MG/ML 1 ML (VIAL/SYRINGE) IV PRN (00:15)
--- NOTE | 2018-09-16 00:18 | NUR ---
0391 pt arrived via wheelchair from er. pt a/o denies c/o pain sl patent vitals stable.. call light within reach.. see admission
[2018-09-16 06:42] LABS: CHOLESTEROL 155 MG/DL (< 200); HDL CHOLESTEROL 60 MG/DL (40-60); TRIGLYCERIDES 36 MG/DL (<150); VLDL CHOLESTEROL 7 MG/DL (5-40)
[2018-09-16] MEDS ORDERED: CLOP75TA69 PO (12:28)
--- NOTE | 2018-09-16 12:30 | Short Stay Summary-Hospitalist ---
History of Present Illness HPI/Chief Complaint Chief complaint: Chest pain History of present illness: This is a 72-year-old white male Formerly [facility] patient of Xenia Madden who is known to this examiner due to multiple hospital stays who has a known history of angina who presented with chest pain and had previously underwent cardiac catheterization at [facility] just recently who was admitted for risk stratification per cardiology recommendation s. At this current time he denied any more chest pain he does live alone at home and is agreeable to whatever decision is made regarding going home for additional test needed depending on cardiology recommendations. Source: patient, old records Exam Limitations: no limitations Date Seen 09/16/18 Time Seen by a Provider: 11:30 Attending Physician Cinthya Molina DO [facility] Referring Physician Date of Admission Sep 15, 2018 at 21:42 Home Medications & Allergies Home Medications Reviewed patient Home Medication Reconciliation performed by pharmacy medication reconciliations nuclear medicine technician and/or nursing. Patients Allergies have been reviewed. Allergies Allergies Coded Allergies metoprolol (Unverified Allergy, Unknown, 09/18/14) "sunburn" rivaroxaban (Unverified Allergy, Unknown, 12/18/14) VOMITING/DIARRHEA Past Qijujbx-Sporjp-Lddwez Hx Past Med/Social Hx: Reviewed Nursing Past Med/Soc Hx, Reviewed and Corrections made Patient Social History Marrital Status: single Employed/Student: retired Alcohol Use: Past History Number of Drinks Today: AA Alcohol Beverage of Choice: Beer Recreational Drug Use: Yes (etoh) Drug of Choice: distant past history of marijuana use Smoking Status: Never a Smoker 2nd Hand Smoke Exposure: Yes (Father was a heavy smoker in his youth) Recent Foreign Travel: No Contact w/other who traveled: No Recent Hopitalizations: No Recent Infectious Disease Expo: No Immunizations Up To Date Tetanus Booster (TDap): Unknown Pediatric: Yes Date of Pneumonia Vaccine: Sep 16, 2017 Date of Influenza Vaccine: Dec 27, 2016 Seasonal Allergies Seasonal Allergies: No Past Medical History Surgeries: Abdominal, Cardiac, CABG, Eye Surgery, Open Heart Surgery, Pacemaker, Vascular Surgery Respiratory: Pulmonary Embolism Currently Using CPAP: No Currently Using BIPAP: No Cardiac: Atrial Fibrillation, Cardiomyopathy, Coronary Artery Disease, Deep Vein Thrombosis, Heart Murmur, High Cholesterol, Hypertension, Irregular Heartbeat Reproductive: No Sexually Transmitted Disease: No HIV/AIDS: No Genitourinary: Benign Prostatic Hyperpl, Kidney Infection, Bladder Infection, Neurogenic Bladder, UTI-Chronic Gastrointestinal: Gastroesophageal Reflux, Chronic Constipation Musculoskeletal: Fractures HEENT: Cataract Loss of Vision: Denies Hearing Impairment: Denies History of Blood Disorders: No Adverse Reaction to Blood Maurer: No Family History Cancer (LINING OF ABD CAVITY, AT AGE 80) 03 MOTHER Chest pain (FATHER OF [place] AT AGE 83) 03 FATHER Congestive heart failure 03 FATHER Family history: Arthritis 03 MOTHER, Onset:60 years & older Family history: Cardiovascular disease 03 FATHER Heart disease 03 FATHER Hypercholesterolemia 03 FATHER 03 MOTHER Myocardial infarction 03 FATHER Prostate cancer (DIAGNOSED AT 70 OR 71 PER PT) 03 FATHER Stroke 09 SISTER Visual impairment (SISTER WEARS GLASSES ) 09 SISTER No Family History of: Abdominal aortic aneurysm Dallas's disease Alcoholism Aphasia Cancer of colon Cataract Congenital heart disease Cystic fibrosis Dementia Dysphagia Family history: Allergy Family history: Alzheimer's disease Family history: Asthma Family history: Breast disease Family history: Coronary thrombosis Family history: Diabetes mellitus Family history: Gastrointestinal disease Family history: Glaucoma Family history: Hypertension Family history: Osteoporosis Family history: Thyroid disorder Headache Hearing loss Hereditary disease History of - anemia History of - disorder History of - respiratory disease History of drug abuse Human immunodeficiency virus (HIV) seropositivity Infertile Kidney disease Malignant neoplasm of lung Parkinson's disease Psychotic disorder Seizure disorder Tuberculosis Cancer, CAD Over 55 Years Old, CVA Review of Systems Constitutional: see HPI Cardiovascular: chest pain Physical Exam Physical Exam Vital Signs Vital Signs - First Documented 09/15/18 09/15/18 19:05 21:40 Temp 99.3 Pulse 82 Resp 16 B/P (MAP) 104/70 (81) Pulse Ox 94 O2 Delivery Room Air Capillary Refill : Less Than 3 SecondsLess Than 3 Seconds Height, Weight, BMI Height: 5'9.00" Weight: 202lbs. 8.0oz. 91.904326xd; 29.9 BMI Method:Stated General Appearance: No Apparent Distress, WD/WN, Chronically ill, Other (s miling laughing and joking with us well-appearing no distress not diaphoretic) HEENT: PERRL/EOMI, TMs Normal Respiratory: Lungs Clear, Normal Breath Sounds, No Accessory Muscle Use, No Respiratory Distress Cardiovascular: Regular Rate, Rhythm, No Edema, No Gallop, Normal Peripheral Pulses Gastrointestinal: Normal Bowel Sounds, Non Tender, Soft Extremity: Normal Capillary Refill, Normal Inspection Neurologic/Psychiatric: Alert, Oriented x3 Skin: Normal Color, Warm/Dry Results Results/Procedures Labs Laboratory Tests 09/15/18 19:11 Patient resulted labs reviewed. Short Stay Diagnosis Discharge Diagnosis-Short Stay Admission Diagnosis Assessment: Chest pain Recent cardiac catheterization performed without intervention recently at [facility] CAD previous bypass Final Discharge Diagnosis Assessment: Chest pain Recent cardiac catheterization performed without intervention recently at [facility] CAD previous bypass Conclusion Plan Discharge home Addition of Plavix to oral anticoagulation Statin maintain Diagnosis/Problems Diagnosis/Problems (1) Chest pain Status: Acute Qualifiers: Qualified Codes: R07.9 - Chest pain, unspecified (2) CAD (coronary artery disease) of bypass graft Status: Chronic Qualifiers: Qualified Codes: I25.708 - Atherosclerosis of coronary artery bypass graft(s), unspecified, with other forms of angina pectoris (3) Essential (primary) hypertension Status: Chronic Clinical Quality Measures AMI/AHF: ASA po Prior to arrival: No DVT/VTE Risk/Contraindication: Risk Factor Score Per Nursin RFS Level Per Nursing on Admit: 2=Moderate CINTHYA MOLINA DO Sep 16, 2018 12:29
--- NOTE | 2018-09-16 13:00 | Consultation-Cardiology ---
HPI-Cardiology Cardiology Consultation: Date of Consultation 09/16/18 Date of Admission Attending Physician Cinthya Hopper DO Admitting Physician [place] Consulting Physician Gabrielle SANTOS MD HPI: Time Seen by a Provider: 11:00 Chief Complaint: chest pain This is a 72-year-old gentleman who presents with complaint of chest pain. The patient follows me in the clinic. He has history of CAD, CABG. He also has history of ischemic cardiomyopathy. He also has a permanent pacemaker. He says his pain is intermittent. No significant shortness of breath. CABG was done in 08/17/2018. Dual-chamber permanent pacemaker was done on 08/21/2016. He had similar chest discomfort with borderline troponin in June of this year and Dr. Sullivan did coronary angiography and no intervention was recommended. He presented again in early August with the same symptoms and was transferred to [facility] since we were on ICU diversion. Apparently he had coronary a ngiography also at [facility] because of borderline troponins with no stents were done. He has had no further chest discomfort episodes. He denies shortness of breath, syncope, near-syncope or palpitations. Review of Systems-Cardiology Review of Systems Constitutional: As described under HPI; No As described under HPI, No no sympt oms reported, No chills, No fever, No lightheadedness Eyes: No As described under HPI, No no symptoms reported, No blindness, No blurred vision, No contact lenses, No drainage, No decreased acuity, No foreign body sensation, No pain, No vision change Ears/Nose/Throat: No As described under HPI, No no symptoms reported, No chronic hearing loss, No ear discharge, No ear pain, No nasal drainage, No ulcerations Respiratory: No no symptoms reported; As described under HPI; No As described under HPI, No cough, No orthopnea, No shortness of breath, No SOB with excertion Cardiovascular: No no symptoms reported; As described under HPI; No As described under HPI; chest pain; No edema, No irregular heart rate, No lightheadedness, No palpitations Gastrointestinal: No no symptoms reported, No As described under HPI, No abdomen distended, No abdominal pain, No blood streaked bowels, No constipation, No diarrhea, No nausea, No vomiting, No stool coloration changes Genitourinary: No As described under HPI, No burning, No dysuria, No discharge, No frequency, No flank pain, No hematuria, No urgency Skin: No rash, No skin related problems, No ulcerations Psychiatric/Neurological: No anxiety, No depression, No seizure, No focal weak ness, No syncope Hematologic: No bleeding abnormalities COA-Jprpsy-Aowrbn Hx Patient Social History Alcohol Use: Past History Recreational Drug Use: Yes (etoh) Drug of Choice: distant past history of marijuana use 2nd Hand Smoke Exposure: Yes (Father was a heavy smoker in his youth) Recent Foreign Travel: No Recent Infectious Disease Expo: No Hospitalization with Isolation: Denies Immunizations Up To Date Tetanus Booster (TDap): Unknown Date of Pneumonia Vaccine: Sep 16, 2017 Date of Influenza Vaccine: Dec 27, 2016 Past Medical History PMH As described under Assessment. Family Medical History Family History: Cancer (LINING OF ABD CAVITY, AT AGE 80) 03 MOTHER Chest pain (FATHER OF [place] AT AGE 83) 03 FATHER Congestive heart failure 03 FATHER Family history: Arthritis 03 MOTHER, Onset:60 years & older Family history: Cardiovascular disease 03 FATHER Heart disease 03 FATHER Hypercholesterolemia 03 FATHER 03 MOTHER Myocardial infarction 03 FATHER Prostate cancer (DIAGNOSED AT 70 OR 71 PER PT) 03 FATHER Stroke 09 SISTER Visual impairment (SISTER WEARS GLASSES ) 09 SISTER No Family History of: Abdominal aortic aneurysm Jorge's disease Alcoholism Aphasia Cancer of colon Cataract Congenital heart disease Cystic fibrosis Dementia Dysphagia Family history: Allergy Family history: Alzheimer's disease Family history: Asthma Family history: Breast disease Family history: Coronary thrombosis Family history: Diabetes mellitus Family history: Gastrointestinal disease Family history: Glaucoma Family history: Hypertension Family history: Osteoporosis Family history: Thyroid disorder Headache Hearing loss Hereditary disease History of - anemia History of - disorder History of - respiratory disease History of drug abuse Human immunodeficiency virus (HIV) seropositivity Infertile Kidney disease Malignant neoplasm of lung Parkinson's disease Psychotic disorder Seizure disorder Tuberculosis Allergies and Home Medications Allergies Coded Allergies: metoprolol (Unverified Allergy, Unknown, 09/18/14) "sunburn" rivaroxaban (Unverified Allergy, Unknown, 12/18/14) VOMITING/DIARRHEA Home Medications Apixaban 5 Mg Tablet, 5 MG PO BID Prescribed by: PHANI VILLA on 03/12/18 1634 Aspirin 81 Mg Tab.chew, 81 MG PO DAILY Prescribed by: OPHELIA HUNTER on 07/20/18 0906 Atorvastatin Calcium 40 Mg Tablet, 40 MG PO HS Prescribed by: OPHELIA HUNTER on 07/20/18905 Carvedilol 3.125 Mg Tablet, 3.125 MG PO BID Prescribed by: OPHELIA HUNTER on 07/20/18905 Clopidogrel Bisulfate 75 Mg Tablet, 75 MG PO DAILY Prescribed by: CINTHYA HOPPER on 09/16/18 1228 Enalapril Maleate 2.5 Mg Tablet, 2.5 MG PO BID Prescribed by: OPHELIA HUNTER on 07/20/18905 Famotidine 20 Mg Tablet, 20 MG PO BID Prescribed by: PIEDAD WIN on 07/21/182020 Isosorbide Mononitrate 30 Mg Tab.er.24h, 30 MG PO DAILY Prescribed by: PIEDAD WIN on 07/21/182020 Multivitamin 1 Each Tablet, 1 TAB PO DAILY, (Reported) Alice 3 Polyunsat Fatty Acids 1,000 Mg Cap, 1,000 MG PO DAILY, (Reported) Omeprazole 20 Mg Capsule.dr, 20 MG PO BID, (Reported) Omeprazole 40 Mg Capsule.dr, 40 MG PO DAILY Prescribed by: PIEDAD WIN on 07/21/182020 Patient Home Medication List Home Medication List Reviewed: Yes Physical Exam-Cardiology Physical Exam Vital Signs/I&O Capillary Refill : Less Than 3 SecondsLess Than 3 Seconds Constitutional: appears stated age, AAO x 3; No apparent distress; well- developed, well-nourished HEENT: PERRL; No normal ENT inspection, No TMs normal, No pharynx normal, No scleral icterus (R), No scleral icterus (L), No pale conjunctivae (R), No pale conjunctivae (L), No photophobia, No TM abnormal (R), No TM abnormal (L), No pharyngeal erythema, No tonsillar exudate, No other, No discharge, No EOMI; hearing is well preserved; No hard of hearing; oral hygience is good; No ulceration, No xanthelasmas are seen Neck: No non-tender, No full range of motion, No supple, No normal inspection, No carotid bruit, No limited range of motion, No lymphadenopathy (R), No lymphadenopathy (L), No tender lateral, No tender midline, No thyromegaly, No other; carotid pulses are 2 + bilaterally; No with good upstrokes Respiratory: chest is bilaterally symmetric, lungs clear to auscultation Cardiovascular: No regular rate-rhythm, No irregularly irregular, No extra beats, No parasternal heave is noted, No JVD, No edema, No bradycardia, No tachycardia, No point of maximal impulse, No cardiac thrills are palpable, No S1 and S2, No gallop/S3, No gallop/S4, No diastolic murmur, No systolic murmur, No friction rub, No click, No other Gastrointestinal: No tender, No soft, No round, No distended, No pulsatile mass, No organomegaly, No guarding, No rebound, No tenderness, No hernia, No mass, No audible bowel sounds, No abnormal bowel sounds, No abdominal bruits, No spleenomegaly, No other Rectal: deferred Extremities: No normal range of motion, No non-tender, No normal inspection, No pedal edema, No calf tenderness, No normal capillary refill, No pelvis stable, No calf tenderness, No inflammation, No pedal edema, No slow capillary refill, No swelling, No other, No abrasion, No clubbing, No cyanosis, No ecchymosis, No laceration, No no lower extremity edema bilateral, No significant edema, No tenderness, No wound Neurologic/Psychiatric: no motor/sensory deficits, alert, oriented x 3, power is 5/5 both on sides Skin: No normal color, No warm/dry, No cyanosis, No cool, No diaphoresis, No damp, No ecchymosis, No jaundice, No mottled, No pallor, No rash, No tattoos/piercings, No ulcerations, No rash on exposed areas, No ulcerations on exposed areas, No other Data Review Labs ECG Impression ECG Initial ECG Rhythm: Normal Sinus Initial ECG Impression: Normal Comment Sinus rhythm, left bundle-branch block A/P-Cardiology Assessment/Admission Diagnosis Chest pain with borderline troponin, but card cath of 07/18/18 and 08/2018 did not show any acute lesions (all lesions appeared chronic; see below) CAD. H/o CABG in 2017: [place] to LAD, SVG to diag, SVG to OM1, SVG to OM2, SVG to PDA (Dr Fraser at [facility]) Card cath of 07/18/18: [place] coronary artery disease consisting of 60% to 70% mid LAD, 50% ostial D1, 70% ostial and long 70% mid vessel stenosis of LCX, and multiple up to 90% stenosis in the proximal and mid RCA. Occluded aortocoronary grafts to a diagonal, first obtuse marginal, second obtuse marginal. Patent a ortocoronary graft to the distal right coronary artery. Patent left internal mammary artery graft to the distal left anterior descending. Left ventricular ejection fraction is estimated to be approximately 45%. Left ventricular end- diastolic pressure is normal. S/p dual chamber pacemaker for complete heart block Ischemic cardiomyopathy. LVEF 30-35% on echo August 2016. Pt has been noncompliant with ICD placement CKD 3-4 Chronic indwelling urinary catheter. Pt states he has never had a full w/u. Has catheter in place since 2012 Frequent UTI due to chronic indwelling catheter - colonized pseudomonas per Dr Hopper Epigastric hernia post sternotomy, recurrent post repair R inguinal hernia by history - Dr. Sebastian following - out pt repair Plan I discussed at length with the patient and did not recommend invasive strategy. We will continue dual antiplatelet therapy and aggressive CAD management. I will recommend an echocardiogram. If he has severe chest pain he will seek immediate medical attention. The patient understands. Ischemic cardiomyopathy with an EF of 30-35 percent and left bundle branch block. He will be a candidate for upgrade to a biventricular ICD. Thank you for your consultation. Please call me if you have any questions. Jordyn Santos MD, FACP, FACC, FSCAI, FHRS, CCDS Interventional Cardiology Cardiac Electrophysiology Vascular Medicine and Endovascular Interventions Clinical Quality Measures AMI/AHF: ASA po Prior to arrival: No DVT/VTE Risk/Contraindication: Risk Factor Score Per Nursin RFS Level Per Nursing on Admit: 2=Moderate Gabrielle SANTOS MD Sep 16, 2018 13:00
--- NOTE | 2018-09-16 13:50 | NUR ---
JORGE ALBERTO CALDWELL JR demonstrates understanding of discharge instructions and accurately returns instructions upon questioning. Copy of Post-Discharge Instructions and Medication Discharge Instructions given to PATIENT. JORGE ALBERTO CALDWELL JR is able to manage continuing needs after discharge. Patients belongings returned to [facility]. Skin dry and intact; no breakdown noted. Patient discharged from [facility] on 09/16/18 at 1350. JORGE ALBERTO CALDWELL JR left floor via WHEELCHAIR, accompanied by STAFF. PATIENT LEFT VIA [facility]AX[employer] SERVICE.
== END 2018-09-16 12:28 | disposition home or self-care (01) ==
LOC: EDUNIT# 19:05 → ER 19:05 → 4TH 21:42 → UNDOADMOB 21:42 → 4TH 23:15 → UNDODISOB 09-16 14:05
PROVIDERS: ADMIT Internal Medicine; ATTEND Internal Medicine
DX: R07.9 Chest pain, unspecified (principal); I25.10 Atherosclerotic heart disease of native coronary artery without angina pectoris; Z95.1 Presence of aortocoronary bypass graft; I25.5 Ischemic cardiomyopathy; N18.4 Chronic kidney disease, stage 4 (severe); I48.91 Unspecified atrial fibrillation; R01.1 Cardiac murmur, unspecified; E78.00 Pure hypercholesterolemia, unspecified; I12.9 Hypertensive chronic kidney disease with stage 1 through stage 4 chronic kidney disease, or unspecified chronic kidney disease; K21.9 Gastro-esophageal reflux disease without esophagitis; K59.09 Other constipation; I35.0 Nonrheumatic aortic (valve) stenosis; Z79.82 Long term (current) use of aspirin; Z95.0 Presence of cardiac pacemaker; Z79.899 Other long term (current) drug therapy; Z87.440 Personal history of urinary (tract) infections; Z86.711 Personal history of pulmonary embolism; Z86.718 Personal history of other venous thrombosis and embolism
CPT/HCPCS: 36415; 71045; 80053; 80061; 83735; 83874; 84484; 85025; 85610; 85730; 93005; 93041; 93306; G0378

== ENCOUNTER 2018-10-11 13:40 | Outpatient (CLI) | payer MEDICARE, MEDICAID ==
[~2018-10-11] VITALS: Ht 175.3 cm; Wt 95.5 kg
[~2018-10-11 13:40] MED LIST changes: +CLOP75TA69 PO; -OMEP20CA12 PO; +OMEP20CA13 PO
[2018-10-11] MEDS ORDERED: CLOP75TA69 PO (13:53)
[2018-10-11] MEDS ORDERED: ASPI-586 PO (13:53)
[2018-10-11] MEDS ORDERED: FURO20TA4 PO (13:53)
[2018-10-11] MEDS ORDERED: MULT-178 PO (13:53)
[2018-10-11 13:59] VITALS: BP 116/58
== END 2018-10-11 16:00 | disposition home or self-care (01) ==
LOC: PREOP 13:40
PROVIDERS: ATTEND Surgery
DX: Z01.818 Encounter for other preprocedural examination (principal)
CPT/HCPCS: 87081

== ENCOUNTER 2018-11-09 08:04 | Day surgery (SDC) | payer MEDICAID, MEDICARE ==
[~2018-11-09] VITALS: Ht 180.3 cm; Wt 95.5 kg
[2018-11-09] VITALS (11 sets, daily range): BP systolic 75–143; BP diastolic 58–94
[~2018-11-09 08:04] MED LIST changes: +ASPI-586 PO; +FURO20TA4 PO; +MULT-178 PO
[2018-11-09] MEDS ORDERED: ceFAZolin INJECTION 2,000 MG ONE (08:19)
[2018-11-09] MEDS ORDERED: HEParin (CATH LAB) 1,000 ML IV ONE (08:20)
[2018-11-09] MEDS ORDERED: LIDOCAINE 1% INJ 20 ML 20 ML VIAL ONE (08:20)
[2018-11-09] MEDS ORDERED: NS IV 1000 ML 1,000 ML ONE (08:20)
[2018-11-09] MEDS ORDERED: NS IV 1000 ML 1,000 ML IV ONE (08:23)
[2018-11-09] MEDS ORDERED: BACITRACIN INJECTION 50,000 UNIT, SODIUM CHLORIDE 0.9% IRRIGATIO 500 ML IR ONE ×2 (08:30)
[2018-11-09] MEDS ORDERED: NS (IVPB) 100 ML ONE (08:31)
[2018-11-09 08:58] LABS: HEMOGLOBIN 12.3 G/DL (13.3-17.7); RED CELL DISTRIBUTION WIDTH 17.3 % (10.0-14.5); WHITE BLOOD COUNT 6.3 10^3/uL (4.3-11.0)
[2018-11-09 09:11] LABS: INR 1.1 (0.8-1.4); PROTHROMBIN TIME PATIENT 14.2 SEC (12.2-14.7)
[2018-11-09 09:26] LABS: ALBUMIN 4.3 GM/DL (3.2-4.5); BILIRUBIN,TOTAL 0.8 MG/DL (0.1-1.0); CALCIUM 9.6 MG/DL (8.5-10.1); CREATININE SERUM 1.28 MG/DL (0.60-1.30); POTASSIUM 4.4 MMOL/L (3.6-5.0); TOTAL PROTEIN 7.4 GM/DL (6.4-8.2)
--- NOTE | 2018-11-09 09:31 | NUR ---
SPOKE WITH PT WELL GOING THRU THE EXTERNAL MED HISTORY TO COMPLETE THE MED REC. PT INDICATED THE ONLY PRESCRIPTION MEDICATION HE ON CURRENTLY TAKING IS CLOPIDOGREL AND THE LAST TIME HE TOOK THAT WAS Tuesday11-04-2018. THE FOLLOWING MEDICATIONS WERE ON HIS EXTERNAL MED HISTORY BUT HE SAYS HE NO LONGER TAKES: ENALAPRIL CARVEDILOL ATORVASTATIN FUROSEMIDE OTC MEDS: FISH OIL 1,000M DAILY MULTIVITAMIN: 1 DAILY ASPIRIN 81M DAILY
[2018-11-09] MEDS ORDERED: fentaNYL INJECTION 100 MCG/2 ML AMP ONE ×2 (09:37→10:20)
[2018-11-09] MEDS ORDERED: MIDAZOLAM 5 MG/5 ML (VERSED) VIAL ONE ×2 (09:37→10:20)
[2018-11-09] MEDS ORDERED: HYDROmorphone 2 MG/ML VIAL (DILAUDID) ONE (11:09)
[2018-11-09] MEDS ORDERED: proPOfol 200 MG/20 ML (DIPRIVAN) VIAL IV ONE (12:36)
[2018-11-09] MEDS ORDERED: NEO/POLY/BAC (NEOSPORIN) OINT 15 GM TUBE ONE (13:11)
--- NOTE | 2018-11-09 13:18 | Progress Note ---
Standard Progress Note Progress Notes/Assess & Plan Date Seen by a Provider: Nov 09, 2018 Time Seen by a Provider: 13:05 Progress/Assessment & Plan consult for sedation for dvt placement. asa 3. start time 1305 end time 1310. 50mg propofol given iv. tolerated procedure well ... DENIZ HOPKINS CRNA Nov 09, 2018 13:18
[2018-11-09] MEDS ORDERED: NS IV 1000 ML 1,000 ML IV SCH (13:30)
[2018-11-09] MEDS ORDERED: PATIENT MAY USE OWN MEDS, ALL PO SCH (13:30)
--- NOTE | 2018-11-09 13:30 | ICD Implantation ---
Single Chamber ICD Implant DATE OF SERVICE: 11/09/2018 RV pacemaker lead extraction, SINGLE CHAMBER ICD IMPLANTATION CARDIAC COLLAR TURNER OPERATOR: Jordyn Santos MD INDICATION: ischemic cardiomyopathy with an EF of 30-35 percent on goal-directed medical therapy, Left bundle branch block with QRS duration over 150 milliseconds. [place] [employer] class II PREOPERATIVE DIAGNOSES: ischemic cardiomyopathy with an EF of 30-35 percent on goal-directed medical therapy, Left bundle branch block with QRS duration over 150 milliseconds. [place] [employer] class II POSTOPERATIVE DIAGNOSES: successful RV pacemaker lead extraction. Unsuccessful LV lead placement. Successful upgrade to a dual-chamber ICD. HISTORY: this is a 73-year-old gentleman with previous history of ischemic cardiomyopathy, CABG, dual-chamber permanent pacemaker. His LV ejection fraction is 30-35 percent with [place] [employer] class II heart failure. Left bundle branch lock with QRS duration of over 150 ms. Biventricular ICD upgrade is recommended. PROCEDURE PERFORMED: 1. pocket revision. 2. dual-chamber permanent pacemaker explantation. 3. left upper extremity Venogram. 4. DFT testing. 5. RV pacemaker lead extraction. 6. LV lead implantation ( unsuccessful). 7. Upgrade to dual-chamber ICD. COMPLICATIONS: None. ESTIMATED BLOOD LOSS: 20 mL. SPECIMENS: None. ANESTHESIA: Conscious sedation. ORAL ANTICOAGULATION: None. FLUOROSCOPY TIME: 28.16 min. FLUOROSCOPY DOSE: 626 mgy. CONTRAST DOSE: 60 ml. PROCEDURE DETAILS: After all the questions were answered, an informed consent was taken. All the risks and complication were explained in detail. The patient was brought to the EP lab. The patient's right and left chest was prepped and draped in the usual sterile fashion. IV antibiotics were administered prior to first incision. A 2-inch horizontal incision was made 1 cm below the clavicle and dissection carried down to the pectoralis fascia an pocket revision was performed. previous dual-chamber permanent pacemaker generator was explanted. RV lead . Stylette was placed in the RV lead. The lead was unscrewed. And very carefully under fluoroscopic guidance the lead was extracted. Stable blood pressure. with tried to gain access under fluoroscopic guidance but were not able to access the vein. Therefore left upper extremity venogram was performed. No significant stenosis or occlusion was noted. Under fluoroscopic guidance, access was gained twice in the axillary vein and 2 regular J-wires were placed. over a long J-wire we introduced extended hook 9F CS outer sheath. We then took the regular J-wire out and used a [employer] J-wire. We were able to get into the CS with the wire with no ectopy. However the CS catheter will not cross into the CS. Therefore we took an inner catheter that was advanced into the CS. An angiogram was done which showed dissection of the CS starting from the ostium and staining of the pericardium. the inner catheter was taken out. Only one vein was identified which seem to be coming from the middle cardiac vein. Since the dissection was at the ostium we were not able to get into the true mid CS lumen. Therefore we decided to check out the only vein that we had. We took a choice ES wire and advanced it distally into the vein. A CS lead from [employer] was advanced into the vein. However we had no capture and also had diaph ragmatic stimulation. I tried to manipulate the lead however we still did not have consistent capture. Therefore the lead was taken out. We pulled the outer CS sheath just outside the CS ostium.with left the previous choice wire in the previous vein. We took another choice ES wire but were not able to get into the true lumen or any other vein. At this point in time we had already used significant fluoroscopy time therefore the wires were taken out. We then placed a long wire in the CS catheter and the CS catheter was then taken out. We then put in a short 9 Latvian sheath. A ICD lead was inserted. This is a single- coiled ICD lead. The RV lead was inserted across the tricuspid valve to an apical septal portion of the RV. The lead position was checked in KOSOVAN and ARELLANO view. The screw was deployed and lead connected to the database programmer analyst. Good sensing and pacing thresholds were obtained. Diaphragmatic pacing was ruled out. The lead was secured with 2-0 Vicryl nonabsorbable sutures. The lead was secured to the underlying muscle and fascia. We then took an ICD generator and the lead was connected to the device in a hermetic fashion. The device and it was placed in the pocket with the Tyrex antibiotic pouch. Aggressive irrigation with normal saline solution was done. Interrogation of the device revealed good integrity of the leads and connection. The wound was closed using 2 layers. The first layer was an interrupted 2-0 Vicryl. The second layer was an uninterrupted 4-0 Vicryl suture. Half inch Steri-Strips and a small dressing was then applied to the wound. DFT testing was done with anesthesia support. The induction mechanism was a T-shock. sustained ventricular fibrillation. Appropriately sensed by the device and treated with a 25 J shock which was successful.the patient tolerated the procedure well and did not have any complication. DEVICE INFORMATION: ICD [id number] EVERA HILDA S IS-1/DF4 GLOB, model number [id number], serial number [id number]. Old RA lead, model number 507 652, length 52, serial number [id number] and [id number]. Implanted 08/23/2016. Extracted RV lead, product number [id number], serial number [id number] and [id number], implant date 08/23/2016. Removed pacemaker, A2DR01, IPG [id number] Advis[address] DR HILDA Torres , PVY [id number]. implant date 08/23/2016 Implanted ICD lead RV model number [id number], serial number [id number]. INTRAOPERATIVE DEVICE TESTING: RV capture threshold 0.3 V at 0.5 ms. Impedance 517 ohms. R wave 5.6 mV. DEVICE INTERROGATION IMMEDIATELY POSTOP: RA, P-wave 1.1 mV. Impedance 361 ohms. Threshold 0.5 V at 0.4 ms. RV, R wave 5.6 mV, impedance 418 ohms, capture threshold 0.5 V at 0.4 ms. HVB impedance 55 ohms. PLAN: The patient will be observed for 23 hours. We will continue with two more dosages of IV antibiotics. We will check a chest x-ray and interrogate the device in the morning. An EKG will be done as well. If everything checks out, the patient will be discharged tomorrow. Jordyn Santos MD, [facility], CCDS Cardiac Electrophysiology Gabrielle SANTOS MD Nov 09, 2018 13:30
--- NOTE | 2018-11-09 13:30 | Cardiac Procedure Note-CS/ASA ---
Pre-Procedure Note Pre-Op Procedure Note H&P Reviewed The H&P was reviewed, patient examined and no changes noted. Date H&P Reviewed: Nov 09, 2018 Time H&P Reviewed: 09:30 Conscious Sedation Pre-Proced Time 09:30 ASA Score 3 For ASA 3 and 4: Consider anesthesia and medical clearance. Also, for patients with a history of failed moderate sedation consider anesthesia. Airway Lungs Heart ASA score ASA 1: a normal healthy patient ASA 2: a patient with a mild systemic disease (mid diabetes, controlled hypertension, obesity ASA 3: a patient with a severe systemic disease that limits activity (angina, COPD, prior Myocardial infarction) ASA 4: a patient with an incapacitating disease that is a constant threat to life (CHF, renal failure) ASA 5: a moribund patient not expected to survive 24 hrs. (ruptured aneurysm) ASA 6: a declared brain- patient whose organs are being harvested. For emergent operations, add the letter E after the classification Mallampati Classification Grade 1 Sedation Plan Analgesia, Amnesia, Plan communicated to team members, Discussed options with patient/fam, Discussed risks with patient/fam The patient is an appropriate candidate to undergo the planned procedure, sedation, and anesthesia. The patient immediately re-assessed prior to indication. Gabrielle HINOJOSA MD Nov 09, 2018 13:30
[2018-11-09] MEDS: ceFAZolin INJECTION 1,000 MG in WATER (STERILE) FOR INJECTION 10 ML IV SCH (14:58)
--- NOTE | 2018-11-09 18:34 | Diagnostic Imaging Report ---
INDICATION: Post ICD. Single view of the chest is obtained and compared to 09/15/2018. FINDINGS: Compared to the prior study, there appears to have been pacemaker revision. There is no pneumothorax or pleural fluid following intervention. There is central vascular congestion. There appears to be a large hiatal hernia. IMPRESSION: No pneumothorax or pleural fluid following pacemaker revision. There is central vascular congestion. There appears to be a large hiatal hernia. Dictated by: Dictated on workstation # [id number]
[2018-11-10] VITALS: BP 128/67
[2018-11-10] MEDS ORDERED: WATER (STERILE) FOR INJECTION 10 ML ONE (00:12)
[2018-11-10] MEDS ORDERED: ceFAZolin INJECTION 1,000 MG ONE ×2 (00:12→10:11)
[2018-11-10] MEDS: ceFAZolin INJECTION 1,000 MG in WATER (STERILE) FOR INJECTION 10 ML IV SCH ×2 (00:43→10:27)
[2018-11-10 04:17] VITALS: BP 133/74
[2018-11-10 04:44] LABS: HEMOGLOBIN 11.2 G/DL (13.3-17.7); RED CELL DISTRIBUTION WIDTH 17.1 % (10.0-14.5); WHITE BLOOD COUNT 8.3 10^3/uL (4.3-11.0)
[2018-11-10 05:13] LABS: ALANINE AMINOTRANSFERASE 7 U/L (0-55); ALBUMIN 3.9 GM/DL (3.2-4.5); ALKALINE PHOSPHATASE 75 U/L (40-136); BILIRUBIN,TOTAL 0.7 MG/DL (0.1-1.0); BUN/CREATININE RATIO 14; CALCIUM 9.4 MG/DL (8.5-10.1); CARBON DIOXIDE 20 MMOL/L (21-32); CHLORIDE 104 MMOL/L (98-107); CREATININE SERUM 1.14 MG/DL (0.60-1.30); GFR ESTIMATED > 60; GLUCOSE 97 MG/DL (70-105); POTASSIUM 4.7 MMOL/L (3.6-5.0); SODIUM 133 MMOL/L (135-145); TOTAL PROTEIN 6.5 GM/DL (6.4-8.2)
[2018-11-10] MEDS ORDERED: MULTIVIT W/MINERALS TAB (THERAGRAN M) PO SCH (07:00)
[2018-11-10 08:10] VITALS: BP 128/74
[2018-11-10] MEDS ORDERED: CLOPIDOGREL 75 MG (PLAVIX) TABLET PO SCH (09:00)
[2018-11-10] MEDS ORDERED: ASPIRIN 81 MG CHEW (CHILDREN'S ASA) PO SCH (09:00)
[2018-11-10] MEDS ORDERED: OMEGA 3 (FISH OIL) 1000 MG CAP PO SCH (09:00)
--- NOTE | 2018-11-10 11:00 | NUR ---
Pastoral care visit.
[2018-11-10 12:00] VITALS: BP 132/72
--- NOTE | 2018-11-10 13:05 | Cardiology Discharge Summary ---
Diagnosis/Chief Complaint Date of Admission 11/09/2018 Date of Discharge 11/10/2018 Admission Diagnosis ischemic cardiomyopathy, left bundle branch block, [place] Heart Association c lass II CHF Final/Discharge Diagnosis ischemic cardiomyopathy, successful ICD placement Chief Complaint/HPI Chief Complaint/HPI this is a 73-year-old gentleman with previous history of ischemic cardiomyopathy, CABG, dual-chamber permanent pacemaker. His LV ejection fraction is 30-35 percent with [place] [employer] class II heart failure. Left bundle branch lock with QRS duration of over 150 ms. Biventricular ICD upgrade is recommended. Discharge Summary Procedures RV pacemaker lead extraction. RV ICD lead implantation. Upgrade to a dual-chamber ICD. Unsuccessful LV lead implantation due to ostial CS dissection with pericardial staining. We were able to get into one vein, however no significant LV capture was noted, with diaphragmatic capture.therefore LV lead not placed. Patient remained hemodynamically stable during the entire procedure. Discharge Physical Examination left upper chest examination showed no hematoma or swelling. Normal cardiovascular and respiratory examination. Hospital Course Was the Problem List Reviewed?: Yes hemodynamically stable. Echocardiogram done today showed no evidence of pericardial effusion. Radiology Reviewed chest x-ray did not show any pneumothorax. Discussion & Recommendations Discussion discharge took over 30 minutes to complete. Discharge instructions were discussed at length. Follow up appt.: Dr. Santos RN in one week for wound check. Dr. Santos in one month for device interrogation. Dicharge Diet: Cardiac Diet, Low Sodium Diet Activity as Tolerated: Yes Home Medications Reviewed patient Home Medication Reconciliation performed by pharmacy medication reconciliations warehouse technician and/or nursing. Patients Allergies have been reviewed. Discharge Home Medications: Reviewed and agree with Discharge Medication list on patient's Discharge Instruction sheet Condition at discharge stable. Instructions to patient/family discussed at length with the patient. Gabrielle SANTOS MD Nov 10, 2018 13:05
[2018-11-10] MEDS ORDERED: CEPH-507 PO (13:07)
--- NOTE | 2018-11-10 13:08 | Discharge Inst-Post Device ---
Discharge Inst-Post Device Reconcile Patient Problems Problems Reviewed?: Yes Final Diagnosis Ischemic Cardiomyopathy, ICD placement Follow up/Plan Dr Santos's RN in one week for wound check. Dr Santos in one month for device interrogation. Heart Healthy Diet Do not lift arm on side of device placement above head for 4 weeks. Do not push and pull heavy objects for 4 weeks. Activity as tolerated. Leave dressing on until follow up at the office. Gabrielle SANTOS MD Nov 10, 2018 13:08
--- NOTE | 2018-11-10 14:42 | NUR ---
Pt given discharge instructions at this time. Sandhu catheter removed and IV removed from left FA also during this time. Pt given taxi voucher at this time. Pacemaker interrogated also during this time. Report sent to Dr. Santos prior to discharge.
[2018-11-10] MEDS ORDERED: LEVO500T2 PO (21:23)
[2018-11-10] MEDS ORDERED: CEFD300C3 PO (21:23)
== END 2018-11-10 15:00 | disposition home or self-care (01) ==
LOC: CATH 08:04 → CSD 13:56 → ICU 15:11 → CATH 11-10 15:00
PROVIDERS: ATTEND Internal Medicine Interventional Cardiology
DX: I25.5 Ischemic cardiomyopathy (principal); I44.7 Left bundle-branch block, unspecified; I44.0 Atrioventricular block, first degree; I25.10 Atherosclerotic heart disease of native coronary artery without angina pectoris; I08.3 Combined rheumatic disorders of mitral, aortic and tricuspid valves; I63.9 Cerebral infarction, unspecified; I50.9 Heart failure, unspecified; Z88.8 Allergy status to other drugs, medicaments and biological substances; Z79.82 Long term (current) use of aspirin; Z86.718 Personal history of other venous thrombosis and embolism; Z79.899 Other long term (current) drug therapy; Z80.9 Family history of malignant neoplasm, unspecified; Z82.3 Family history of stroke; Z82.49 Family history of ischemic heart disease and other diseases of the circulatory system
CPT/HCPCS: 33225; 33233; 33235; 33249; 36415; 71045; 80053; 85027; 85610; 85730; 87081; 93005; 93306; 93641

== ENCOUNTER 2018-11-10 18:27 | Emergency (ER) | payer MEDICARE ==
[~2018-11-10] VITALS: Ht 71 cm; Wt 102.0 kg
--- NOTE | 2018-11-10 18:34 | ED General ---
General Stated Complaint: WEAKNESS Source of Information: Patient Exam Limitations: No Limitations History of Present Illness Date Seen by Provider: Nov 10, 2018 Time Seen by Provider: 18:33 Initial Comments To ER by private vehicle with reports of generalized weakness for about the past hour. He had his pacemaker exchanged for an AICD yesterday here he states. He denies chest pain or shortness of breath. States that he was [place] [employer] and [place] [employer], when he stood up to leave he was very weak. Timing/Duration: 1-2 Days Severity: Moderate Associated Systoms: Weakness Allergies and Home Medications Allergies Coded Allergies: metoprolol (Unverified Allergy, Mild, SKIN SENSITIVITY, 10/11/18) "sunburn" rivaroxaban (Unverified Allergy, Mild, N/V, 10/11/18) Home Medications Aspirin 81 Mg Tablet.dr, 81 MG PO DAILY, (Reported) Cefdinir 300 Mg Capsule, 300 MG PO BID Prescribed by: PHANI VILLA on 11/10/182122 Cephalexin 500 Mg Capsule, 500 MG PO TID Prescribed by: Gabrielle SANTOS on 11/10/18 1307 Clopidogrel Bisulfate 75 Mg Tablet, 75 MG PO DAILY, (Reported) Levofloxacin 500 Mg Tablet, 500 MG PO every other day Prescribed by: PHANI VILLA on 11/10/182122 Multivitamin 1 Each Tablet, 1 EACH PO DAILY, (Reported) [place] 3 Polyunsat Fatty Acids 1,000 Mg Cap, 1,000 MG PO DAILY, (Reported) Patient Home Medication List Home Medication List Reviewed: Yes Review of Systems Review of Systems Constitutional: see HPI, weakness EENTM: see HPI Respiratory: no symptoms reported; No short of breath Cardiovascular: no symptoms reported; No chest pain Genitourinary: no symptoms reported Musculoskeletal: no symptoms reported Skin: no symptoms reported, change in hair/nails Psychiatric/Neurological: No Symptoms Reported Past Rzbjewi-Vauwbt-Cixtyg Hx Patient Social History Alcohol Beverage of Choice: Beer Drug of Choice: distant past history of marijuana use 2nd Hand Smoke Exposure: Yes (Father was a heavy smoker in his youth) Recent Foreign Travel: No Contact w/Someone Who Travel: No Recent Hopitalizations: Yes (AUGUST 2018-CP) Immunizations Up To Date Tetanus Booster (TDap): Unknown PED Vaccines UTD: Yes Date of Pneumonia Vaccine: Sep 16, 2017 Date of Influenza Vaccine: Dec 05, 2017 Seasonal Allergies Seasonal Allergies: No Past Medical History Surgeries: Yes (CATARACT, INCISIONAL HERNIA) Cardiac, CABG, Eye Surgery, Open Heart Surgery, Pacemaker Respiratory: Yes (PE 4-5 TIMES, HX PNEUMONIA 2017) Pulmonary Embolism Currently Using CPAP: No Currently Using BIPAP: No Cardiac: Yes (CABG 07/2016; PACEMAKER; BIGEMINIY; LBBB; 1ST DEGREE AV BLOCK) Atrial Fibrillation, Cardiomyopathy, Coronary Artery Disease, Deep Vein Thrombosis, Heart Murmur, Irregular Heartbeat Neurological: No Reproductive Disorders: No Sexually Transmitted Disease: No HIV/AIDS: No Genitourinary: Yes (INDWELLING CATHETER) Benign Prostatic Hyperpl, Kidney Infection, Bladder Infection, Neurogenic Bladder, UTI-Chronic Gastrointestinal: Yes (RIGHT INGUINAL HERNIA) Gastroesophageal Reflux, Chronic Constipation Musculoskeletal: Yes (right ankle broken) Fractures Endocrine: No HEENT: Yes (READING GLASSES) Cataract Loss of Vision: Denies Hearing Impairment: Denies Cancer: No Psychosocial: No Integumentary: No Blood Disorders: No Adverse Reaction/Blood Tranf: No (HAS HAD BLOOD WITH NO REACTION) Family Medical History Cancer (LINING OF ABD CAVITY, AT AGE 80) 03 MOTHER Chest pain (FATHER OF PA AT AGE 83) 03 FATHER Congestive heart failure 03 FATHER Family history: Arthritis 03 MOTHER, Onset:60 years & older Family history: Cardiovascular disease 03 FATHER Heart disease 03 FATHER Hypercholesterolemia 03 FATHER 03 MOTHER Myocardial infarction 03 FATHER Prostate cancer (DIAGNOSED AT 72 OR 73 PER PT) 03 FATHER Stroke 09 SISTER Visual impairment (SISTER WEARS GLASSES ) 09 SISTER No Family History of: Abdominal aortic aneurysm Jorge's disease Alcoholism Aphasia Cancer of colon Cataract Congenital heart disease Cystic fibrosis Dementia Dysphagia Family history: Allergy Family history: Alzheimer's disease Family history: Asthma Family history: Breast disease Family history: Coronary thrombosis Family history: Diabetes mellitus Family history: Gastrointestinal disease Family history: Glaucoma Family history: Hypertension Family history: Osteoporosis Family history: Thyroid disorder Headache Hearing loss Hereditary disease History of - anemia History of - disorder History of - respiratory disease History of drug abuse Human immunodeficiency virus (HIV) seropositivity Infertile Kidney disease Malignant neoplasm of lung Parkinson's disease Psychotic disorder Seizure disorder Tuberculosis Cancer, CAD Over 55 Years Old, CVA Physical Exam Vital Signs Vital Signs - First Documented 11/10/18 18:30 Temp 36.4 Pulse 69 Resp 18 B/P (MAP) 148/68 (94) Pulse Ox 99 Capillary Refill : Height, Weight, BMI Height: 5'11.00" Weight: 210lbs. 7.0oz. [id number]; 29.4 BMI Method:Stated General Appearance: No Apparent Distress, WD/WN, Other Eyes: Bilateral Eye Normal Inspection, Bilateral Eye PERRL, Bilateral Eye EOMI HEENT: PERRL/EOMI, TMs Normal Neck: Full Range of Motion, Normal Inspection Respiratory: Normal Breath Sounds, No Accessory Muscle Use, No Respiratory Distress Cardiovascular: Regular Rate, Rhythm, Normal Peripheral Pulses Gastrointestinal: Non Tender, Soft Extremity: Normal Capillary Refill, Normal Inspection Neurologic/Psychiatric: Alert, Oriented x3 Progress/Results/Core Measures Suspected Sepsis SIRS Temperature: Pulse: Respiratory Rate: Laboratory Tests 11/10/18 18:50: White Blood Count 7.1 Blood Pressure / Mean: Laboratory Tests 11/10/18 18:50: Creatinine 1.34H, INR Comment 1.1, Platelet Count 190, Total Bilirubin 0.8 Results/Orders Lab Results Laboratory Tests Test 11/10/18 18:50 11/10/18 19:17 Range/Units White Blood Count 7.1 4.3-11.0 10^3/uL Red Blood Count 4.34 L 4.35-5.85 10^6/uL Hemoglobin 11.5 L 13.3-17.7 G/DL Hematocrit 35 L 40-54 % Mean Corpuscular Volume 81 80-99 FL Mean Corpuscular Hemoglobin 26 25-34 PG Mean Corpuscular Hemoglobin Concent 33 32-36 G/DL Red Cell Distribution Width 17.3 H 10.0-14.5 % Platelet Count 190 130-400 10^3/uL Mean Platelet Volume 10.1 7.4-10.4 FL Neutrophils (%) (Auto) 61 42-75 % Lymphocytes (%) (Auto) 23 12-44 % Monocytes (%) (Auto) 8 0-12 % Eosinophils (%) (Auto) 8 0-10 % Basophils (%) (Auto) 1 0-10 % Neutrophils # (Auto) 4.3 1.8-7.8 X 10^3 Lymphocytes # (Auto) 1.6 1.0-4.0 X 10^3 Monocytes # (Auto) 0.6 0.0-1.0 X 10^3 Eosinophils # (Auto) 0.6 H 0.0-0.3 10^3/uL Basophils # (Auto) 0.1 0.0-0.1 10^3/uL Prothrombin Time 14.7 12.2-14.7 SEC INR Comment 1.1 0.8-1.4 Activated Partial Thromboplast Time 31 24-35 SEC Sodium Level 133 L 135-145 MMOL/L Potassium Level 3.6 3.6-5.0 MMOL/L Chloride Level 102 98-107 MMOL/L Carbon Dioxide Level 21 21-32 MMOL/L Anion Gap 10 5-14 MMOL/L Blood Urea Nitrogen 15 7-18 MG/DL Creatinine 1.34 H 0.60-1.30 MG/DL Estimat Glomerular Filtration Rate 52 BUN/Creatinine Ratio 11 Glucose Level 148 H 70-105 MG/DL Calcium Level 9.5 8.5-10.1 MG/DL Corrected Calcium 9.4 8.5-10.1 MG/DL Magnesium Level 1.9 1.6-2.4 MG/DL Total Bilirubin 0.8 0.1-1.0 MG/DL Aspartate Amino Transf (AST/SGOT) 15 5-34 U/L Alanine Aminotransferase (ALT/SGPT) 8 0-55 U/L Alkaline Phosphatase 76 40-136 U/L Myoglobin 52.0 10.0-92.0 NG/ML Troponin I 0.303 *H <0.028 NG/ML B-Type Natriuretic Peptide 309.8 H <100.0 PG/ML Total Protein 6.9 6.4-8.2 GM/DL Albumin 4.1 3.2-4.5 GM/DL Urine Color YELLOW Urine Clarity CLEAR Urine pH 5 5-9 Urine Specific [place] 1.015 L 1.016-1.022 Urine Protein 2+ H NEGATIVE Urine Glucose (UA) NEGATIVE NEGATIVE Urine Ketones 1+ H NEGATIVE Urine Nitrite POSITIVE H NEGATIVE Urine Bilirubin NEGATIVE NEGATIVE Urine Urobilinogen NORMAL NORMAL MG/DL Urine Leukocyte Esterase 3+ H NEGATIVE Urine RBC (Auto) 4+ H NEGATIVE Urine RBC 2-5 H /HPF Urine WBC 25-50 H /HPF Urine Crystals NONE /LPF Urine Bacteria FEW H /HPF Urine Casts NONE /LPF Urine Mucus NEGATIVE /LPF Urine Culture Indicated YES My Orders Orders - PHANI VILLA MANAGER OF INTERNAL AUDIT Cbc With Automated Diff (11/10/18 18:31) Magnesium (11/10/18 18:31) Chest 1 View, Ap/Pa Only (11/10/18 18:31) Ekg Tracing (11/10/18 18:31) Cardiac Profile 1 (11/10/18 18:) Comprehensive Metabolic Panel (11/10/18 18:31) Myoglobin Serum (11/10/18 18:31) Protime With Inr (11/10/18 18:) Partial Thromboplastin Time (11/10/18 18:31) O2 (11/10/18 18:31) Monitor-Rhythm Ecg Trace Only (11/10/18 18:31) Lipid Panel (11/11/18 06:00) Ed Iv/Invasive Line Start (11/10/18 18:31) BNP (11/10/18 18:) Aspirin Chewable Tablet (Baby Aspirin Ch (11/10/18 18:45) Ua Culture If Indicated (11/10/18 19:08) Orthostatic Vital Signs (Adult (11/10/18 19:40) Ns Iv 500 Ml (Sodium Chloride 0.9%) (11/10/18 19:45) Urine Culture (11/10/18 19:17) Ns Iv 500 Ml (Sodium Chloride 0.9%) (11/10/18 21:45) Medications Given in ED Current Medications Medications Dose Ordered Sig/Sukhjinder Route Start Time Stop Time Status Last Admin Dose Admin Aspirin 324 mg ONCE ONCE PO 11/10/18 18:45 11/10/18 18:46 DC 11/10/18 18:38 324 MG Vital Signs/I&O 11/10/18 11/10/18 18:30 19:43 Temp 36.4 Pulse 69 59 56 79 Resp 18 B/P (MAP) 148/68 (94) 110/64 (79) 114/55 (74) 88/46 (60) Pulse Ox 99 Capillary Refill : Departure Communication (Admissions) 1934 I discussed the case with Dr. Santos, recommends checking orthostatic blood pressures. He has a history of orthostatic hypotension. Recommends giving some fluids, I'll order 500 mL of normal saline IV. The elevated troponin is not concerning as the patient had the defibrillator placed yesterday, they put him into V. tach and shocked him out of it according to Dr. Santos. Remainder of His labs are otherwise unremarkable, 1949-with Zyrtec vital signs show a drop in blood pressure from 150s systolic down to 88 systolic upon change of position from lying to standing. Fluids are infusing. 2217-patient is now able to ambulate to the bathroom without any assistance. Impression Primary Impression: Urinary tract infection Qualified Codes: N39.0 - Urinary tract infection, site not specified Additional Impressions: General weakness Chronic orthostatic hypotension Disposition: HOME, SELF-CARE Condition: Stable Departure-Patient Inst. Decision time for Depature: 21:22 Referrals: [facility] [place] (PCP/Family) Primary Care Physician Patient Instructions: Generalized Weakness (DC), Orthostatic Hypotension Scripts Cefdinir (Cefdinir) 300 Mg Capsule 300 MG PO BID, #14 CAP Prov: PHANI VILLA APRN 11/10/18 Levofloxacin (Levaquin) 500 Mg Tablet 500 MG PO every other day, #3 TAB Prov: PHANI VILLA APRN 11/10/18 PHANI VILLA APRN Nov 10, 2018 18:34
[2018-11-10] MEDS ORDERED: ASPIRIN 81 MG CHEW (CHILDREN'S ASA) PO ONE (18:45)
[2018-11-10 18:59] LABS: BASOPHILS # (AUTO) 0.1 10^3/uL (0.0-0.1); BASOPHILS % (AUTO) 1 % (0-10); EOSINOPHILS # (AUTO) 0.6 10^3/uL (0.0-0.3); EOSINOPHILS % (AUTO) 8 % (0-10); HEMATOCRIT 35 % (40-54); HEMOGLOBIN 11.5 G/DL (13.3-17.7); LYMPHOCYTES # (AUTO) 1.6 X 10^3 (1.0-4.0); LYMPHOCYTES % (AUTO) 23 % (12-44); MEAN CORPUSCULAR HGB CONC 33 G/DL (32-36); MEAN CORPUSCULAR VOLUME 81 FL (80-99); MEAN PLATELET VOLUME 10.1 FL (7.4-10.4); MONOCYTES # (AUTO) 0.6 X 10^3 (0.0-1.0); MONOCYTES % (AUTO) 8 % (0-12); NEUTROPHILS # (AUTO) 4.3 X 10^3 (1.8-7.8); NEUTROPHILS % (AUTO) 61 % (42-75); PLATELET COUNT 190 10^3/uL (130-400); RED CELL DISTRIBUTION WIDTH 17.3 % (10.0-14.5); WHITE BLOOD COUNT 7.1 10^3/uL (4.3-11.0)
[2018-11-10 19:00] LABS: MEAN CORPUSCULAR HEMOGLOBIN 26 PG (25-34)
--- NOTE | 2018-11-10 19:00 | NUR ---
Recieved report from MARVA Olivarez to assume care of pt @ this time.
[2018-11-10 19:15] LABS: INR 1.1 (0.8-1.4); PROTHROMBIN TIME PATIENT 14.7 SEC (12.2-14.7)
[2018-11-10 19:18] LABS: ALBUMIN 4.1 GM/DL (3.2-4.5); BILIRUBIN,TOTAL 0.8 MG/DL (0.1-1.0); CALCIUM 9.5 MG/DL (8.5-10.1); CREATININE SERUM 1.34 MG/DL (0.60-1.30); MAGNESIUM 1.9 MG/DL (1.6-2.4); POTASSIUM 3.6 MMOL/L (3.6-5.0); TOTAL PROTEIN 6.9 GM/DL (6.4-8.2)
--- NOTE | 2018-11-10 19:22 | Diagnostic Imaging Report ---
INDICATION: Cardiac dysrhythmia. EXAMINATION: Portable upright AP view of the chest was obtained. COMPARISON: Study of 11/09/2018. FINDINGS: Overall heart size and pulmonary vascularity are within normal limits. There is moderate hiatal hernia similar to previous study. No pneumothorax is seen. Left anterior chest wall cardiac defibrillator device is in stable position without evidence of a pneumothorax. IMPRESSION: Stable chest with hiatal hernia present. Otherwise, no acute abnormality or complication is detected. Dictated by: Dictated on workstation # [id number]
[2018-11-10 19:27] LABS: BILIRUBIN,URINE NEGATIVE (NEGATIVE); CLARITY,URINE CLEAR; COLOR,URINE YELLOW; GLUCOSE, URINE (UA) NEGATIVE (NEGATIVE); KETONES,URINE 1+ (NEGATIVE); LEUKOCYTE ESTERASE ,URINE 3+ (NEGATIVE); NITRITE,URINE POSITIVE (NEGATIVE); PH,URINE 5 (5-9); PROTEIN,URINE 2+ (NEGATIVE); UROBILINOGEN,URINE NORMAL (NORMAL)
[2018-11-10 19:40] LABS: WBC,URINE 25-50 /HPF
[2018-11-10 19:41] LABS: BACTERIA,URINE FEW /HPF
[2018-11-10 19:43] VITALS: BP_SYST 110; BP_SYST 114; BP_SYST 88; BP_DIAS 46; BP_DIAS 55; BP_DIAS 64
[2018-11-10] MEDS ORDERED: NS IV 500 ML 500 ML IV SCH ×2 (19:45→21:45)
[2018-11-10] MEDS ORDERED: LEVO500T2 PO (21:23)
[2018-11-10] MEDS ORDERED: CEFD300C3 PO (21:23)
[2018-11-10 22:40] VITALS: BP 122/65
== END 2018-11-10 22:40 | disposition home or self-care (01) ==
LOC: EDUNIT# 18:27 → ER 18:29
DX: N39.0 Urinary tract infection, site not specified (principal); R53.1 Weakness; I95.1 Orthostatic hypotension; I48.91 Unspecified atrial fibrillation; I25.10 Atherosclerotic heart disease of native coronary artery without angina pectoris; K21.9 Gastro-esophageal reflux disease without esophagitis; Z86.718 Personal history of other venous thrombosis and embolism; Z87.440 Personal history of urinary (tract) infections; Z88.8 Allergy status to other drugs, medicaments and biological substances; Z79.82 Long term (current) use of aspirin; Z79.02 Long term (current) use of antithrombotics/antiplatelets; Z77.22 Contact with and (suspected) exposure to environmental tobacco smoke (acute) (chronic); Z95.1 Presence of aortocoronary bypass graft; Z95.0 Presence of cardiac pacemaker; Z86.711 Personal history of pulmonary embolism; Z82.49 Family history of ischemic heart disease and other diseases of the circulatory system; Z80.42 Family history of malignant neoplasm of prostate; Z80.8 Family history of malignant neoplasm of other organs or systems
CPT/HCPCS: 36415; 71045; 80053; 81000; 83735; 83874; 83880; 84484; 85025; 85610; 85730; 87077; 87088; 87186; 93005; 93041

== ENCOUNTER 2019-01-31 08:47 | Emergency (ER) | payer MEDICARE ==
[~2019-01-31] VITALS: Ht 180.3 cm; Wt 94.0 kg
[~2019-01-31 08:47] MED LIST changes: -METO-387 PO; +MTP25TSR PO; +OMEP-280 PO; -OMEP20CA13 PO; +OMEP40CA27 PO; -OMEP40CA36 PO
[2019-01-31] MEDS ORDERED: NS IV 500 ML 500 ML IV ONE ×2 (09:06→11:20)
[2019-01-31 09:23] LABS: BASOPHILS % (AUTO) 1 % (0-10); EOSINOPHILS # (AUTO) 0.3 10^3/uL (0.0-0.3); EOSINOPHILS % (AUTO) 6 % (0-10); HEMATOCRIT 37 % (40-54); HEMOGLOBIN 11.6 G/DL (13.3-17.7); LYMPHOCYTES # (AUTO) 1.6 X 10^3 (1.0-4.0); LYMPHOCYTES % (AUTO) 33 % (12-44); MEAN CORPUSCULAR HEMOGLOBIN 26 PG (25-34); MEAN CORPUSCULAR HGB CONC 32 G/DL (32-36); MEAN CORPUSCULAR VOLUME 82 FL (80-99); MEAN PLATELET VOLUME 11.1 FL (7.4-10.4); MONOCYTES # (AUTO) 0.8 X 10^3 (0.0-1.0); MONOCYTES % (AUTO) 16 % (0-12); NEUTROPHILS # (AUTO) 2.1 X 10^3 (1.8-7.8); NEUTROPHILS % (AUTO) 44 % (42-75); PLATELET COUNT 178 10^3/uL (130-400); RED CELL DISTRIBUTION WIDTH 16.2 % (10.0-14.5); WHITE BLOOD COUNT 4.8 10^3/uL (4.3-11.0)
[2019-01-31 09:29] LABS: BILIRUBIN,URINE NEGATIVE (NEGATIVE); CLARITY,URINE SL CLOUDY; COLOR,URINE YELLOW; GLUCOSE, URINE (UA) NEGATIVE (NEGATIVE); KETONES,URINE NEGATIVE (NEGATIVE); LEUKOCYTE ESTERASE ,URINE 2+ (NEGATIVE); NITRITE,URINE NEGATIVE (NEGATIVE); PROTEIN,URINE NEGATIVE (NEGATIVE)
[2019-01-31 09:44] LABS: PROTHROMBIN TIME PATIENT 13.9 SEC (12.2-14.7)
[2019-01-31 09:51] LABS: ALANINE AMINOTRANSFERASE 9 U/L (0-55); ALKALINE PHOSPHATASE 83 U/L (40-136); BILIRUBIN,TOTAL 0.4 MG/DL (0.1-1.0); BUN/CREATININE RATIO 18; CALCIUM 9.3 MG/DL (8.5-10.1); CARBON DIOXIDE 22 MMOL/L (21-32); CHLORIDE 107 MMOL/L (98-107); CREATININE SERUM 1.16 MG/DL (0.60-1.30); GFR ESTIMATED > 60; GLUCOSE 78 MG/DL (70-105); POTASSIUM 5.2 MMOL/L (3.6-5.0); SODIUM 137 MMOL/L (135-145); TOTAL PROTEIN 6.9 GM/DL (6.4-8.2)
--- NOTE | 2019-01-31 09:57 | Diagnostic Imaging Report ---
PROCEDURE: CT head wo r/o stroke. TECHNIQUE: Multiple contiguous axial images were obtained through the brain without the use of intravenous contrast. Auto Exposure Controls were utilized during the CT exam to meet ALARA standards for radiation dose reduction. INDICATION: Dizziness, stumbling Study compared to 12/24/2016. FINDINGS: There was some calcified plaque in the intradural segment of the right vertebral artery stable. From images 10 through 12 series 2 there is questionable intraluminal hyperdensity within the basilar artery. The clinical features are compatible with a posterior fossa ischemia consider a CT angiogram head and neck as further evaluation. No appreciable cortical edema. No evidence for hemorrhage. No mass or mass effect. No findings of an elevation of the intracerebral pressures. The orbits, sinuses and calvarium within normal limits. IMPRESSION: Equivocal findings for hyperdensity within the basilar this region admittedly degraded by skull base artifact. However in the clinical scenario of suspicion for possible posterior fossa ischemia. CT angiographic evaluation of the neck and head suggested as further evaluation. No other potential change from previous imaging. Results were discussed by phone with Dr. Lewis prior to dictation. Dictated by: Dictated on workstation # [id number]
--- NOTE | 2019-01-31 09:57 | NUR ---
TO ROOM READNG ON PHONE
[2019-01-31] MEDS ORDERED: NS 100 ML (IVPB) BAG IV ONE (10:00)
[2019-01-31] MEDS ORDERED: HOLD METFORMIN - RECEIVED CONTRAST 20 ML VIAL IV SCH (10:00)
[2019-01-31] MEDS ORDERED: CATHETER FLUSH 10 ML SYR IV PRN (10:00)
[2019-01-31] MEDS ORDERED: IOHEXOL 350 MG/ML 100 ML (OMNIPAQUE 350) VIAL IV ONE (10:00)
[2019-01-31 10:06] LABS: BACTERIA,URINE FEW /HPF; RBC,URINE 25-50 /HPF; WBC,URINE >100 /HPF
--- NOTE | 2019-01-31 10:08 | Diagnostic Imaging Report ---
INDICATION: Stroke like symptoms, dizziness and stumbling. TECHNIQUE: Single view chest 9:49 AM. CORRELATION STUDY: 11/10/2018 FINDINGS: Prior sternotomy changes with coronary artery bypass. Left-sided pacemaker. Heart size is enlarged but stable. Left ventricular configuration. Vasculature overall within normal limits. Increased density in the retrocardiac region suspect for probable hiatal hernia. Chronic appearing changes about the lung parenchyma. No infiltrates demonstrated. Density at the lateral aspect of the left lung base is present largely obscured by overlying pacemaker. IMPRESSION: 1. Stable severity cardiac enlargement with post sternotomy changes. No acute abnormality. Dictated by: Dictated on workstation # [id number]
--- NOTE | 2019-01-31 10:12 | ED General ---
General Chief Complaint: Dizziness/Syncope Stated Complaint: DIZZINESS Nursing Triage Note: TO ED PER EMS FROM HOME. REPORTS LASTNIGHT AT [facility] 1030 WAS DIZZY AND WOKE UP AT 330 AM TODAY WITH HEADACHE AND WAS DIZZY. FELL X2 THIS AM . ALSO REPORT THAT HAS HURD IN [facility] HAS NOT CHANGED IT FOR 2 MONTHS Nursing Sepsis Screen: No Definite Risk Source of Information: Patient Exam Limitations: No Limitations History of Present Illness Date Seen by Provider: Jan 31, 2019 Time Seen by Provider: 09:01 Initial Comments Here with a variety of complaints that centers around being dizzy or lightheaded. States he was lightheaded before he went to bed last night. Woke up about 3:30 this morning and this was worse. Reports that he has 2 or 3 falls at least today secondary to the lightheadedness. Denies hitting his head or injuries. He did call EMS who brought him here ultimately. Does have a fairly pronounced history of medical problems but is not currently on any medicines. He does have a pacemaker defibrillator in place. He does not take blood thinners or even aspirin. Does report that he believes he has urinary tract infection and has indwelling Hurd catheter that has not been replaced for at least 2 months. Denies nausea, vomiting, fever or weakness otherwise. Timing/Duration: 12 Hours Severity: Mild Modifying Factors: improves with Rest Associated Systoms: No Fever/Chills, No Nausea/Vomiting, No Shortness of Air; Weakness Allergies and Home Medications Allergies Coded Allergies: metoprolol (Unverified Allergy, Mild, SKIN SENSITIVITY, 10/11/18) "sunburn" rivaroxaban (Unverified Allergy, Mild, N/V, 10/11/18) Home Medications Aspirin 81 Mg Tablet.dr, 81 MG PO DAILY, (Reported) Cefdinir 300 Mg Capsule, 300 MG PO BID Prescribed by: PHANI VILLA on 11/10/182122 Cephalexin 500 Mg Capsule, 500 MG PO TID Prescribed by: Gabrielle HINOJOSA on 11/10/18 1307 Clopidogrel Bisulfate 75 Mg Tablet, 75 MG PO DAILY, (Reported) Levofloxacin 500 Mg Tablet, 500 MG PO every other day Prescribed by: PHANI VILLA on 11/10/182122 Multivitamin 1 Each Tablet, 1 EACH PO DAILY, (Reported) [place] 3 Polyunsat Fatty Acids 1,000 Mg Cap, 1,000 MG PO DAILY, (Reported) Patient Home Medication List Home Medication List Reviewed: Yes (off all home meds) Review of Systems Review of Systems Constitutional: see HPI; No chills, No fever EENTM: no symptoms reported Respiratory: no symptoms reported Cardiovascular: no symptoms reported Gastrointestinal: No diarrhea, No nausea, No vomiting Genitourinary: see HPI; No dysuria; pain Musculoskeletal: see HPI Skin: No change in color, No lesions Psychiatric/Neurological: Weakness, Other (lightheaded) All Other Systems Reviewed Negative Unless Noted: Yes Past Cgkzmmw-Sfudkf-Pvqzub Hx Past Med/Social Hx: Reviewed Nursing Past Med/Soc Hx Patient Social History Alcohol Use: Occasionally Uses Number of Drinks Today: AA Alcohol Beverage of Choice: Beer Recreational Drug Use: No (etoh) Drug of Choice: distant past history of marijuana use Smoking Status: Never a Smoker 2nd Hand Smoke Exposure: Yes (Father was a heavy smoker in his youth) Recent Foreign Travel: No Contact w/Someone Who Travel: No Recent Infectious Disease Expo: No Recent Hopitalizations: Yes (ICD PLACED YESTERDAY) Immunizations Up To Date Tetanus Booster (TDap): Unknown PED Vaccines UTD: Yes Date of Pneumonia Vaccine: Sep 16, 2017 Date of Influenza Vaccine: Dec 05, 2017 Seasonal Allergies Seasonal Allergies: No Past Medical History Surgeries: Yes (CATARACT, INCISIONAL HERNIA) Cardiac, CABG, Eye Surgery, Open Heart Surgery, Pacemaker Respiratory: Yes (PE 4-5 TIMES, HX PNEUMONIA 2017) Pulmonary Embolism Currently Using CPAP: No Currently Using BIPAP: No Cardiac: Yes (CABG 07/2016; PACEMAKER; BIGEMINIY; LBBB; 1ST DEGREE AV BLOCK) Atrial Fibrillation, Cardiomyopathy, Coronary Artery Disease, Deep Vein Thrombosis, Heart Murmur, Irregular Heartbeat Neurological: No Reproductive Disorders: No Sexually Transmitted Disease: No HIV/AIDS: No Genitourinary: Yes (INDWELLING CATHETER) Benign Prostatic Hyperpl, Kidney Infection, Bladder Infection, Neurogenic Bladder, UTI-Chronic Gastrointestinal: Yes (RIGHT INGUINAL HERNIA) Gastroesophageal Reflux, Chronic Constipation Musculoskeletal: Yes (right ankle broken) Fractures Endocrine: No HEENT: Yes (READING GLASSES) Cataract Loss of Vision: Denies Hearing Impairment: Denies Cancer: No Psychosocial: No Integumentary: No Blood Disorders: No Adverse Reaction/Blood Tranf: No (HAS HAD BLOOD WITH NO REACTION) Family Medical History Reviewed Nursing Family Hx Cancer (LINING OF ABD CAVITY, AT AGE 80) 03 MOTHER Chest pain (FATHER OF [place] AT AGE 83) 03 FATHER Congestive heart failure 03 FATHER Family history: Arthritis 03 MOTHER, Onset:60 years & older Family history: Cardiovascular disease 03 FATHER Heart disease 03 FATHER Hypercholesterolemia 03 FATHER 03 MOTHER Myocardial infarction 03 FATHER Prostate cancer (DIAGNOSED AT 72 OR 73 PER PT) 03 FATHER Stroke 09 SISTER Visual impairment (SISTER WEARS GLASSES ) 09 SISTER No Family History of: Abdominal aortic aneurysm Braham's disease Alcoholism Aphasia Cancer of colon Cataract Congenital heart disease Cystic fibrosis Dementia Dysphagia Family history: Allergy Family history: Alzheimer's disease Family history: Asthma Family history: Breast disease Family history: Coronary thrombosis Family history: Diabetes mellitus Family history: Gastrointestinal disease Family history: Glaucoma Family history: Hypertension Family history: Osteoporosis Family history: Thyroid disorder Headache Hearing loss Hereditary disease History of - anemia History of - disorder History of - respiratory disease History of drug abuse Human immunodeficiency virus (HIV) seropositivity Infertile Kidney disease Malignant neoplasm of lung Parkinson's disease Psychotic disorder Seizure disorder Tuberculosis Cancer, CAD Over 55 Years Old, CVA Physical Exam Vital Signs Vital Signs - First Documented 01/31/19 08:49 Temp 36.8 Pulse 98 Resp 18 B/P (MAP) 174/84 (114) Pulse Ox 98 O2 Delivery Room Air Capillary Refill : Less Than 3 Seconds Height, Weight, BMI Height: 5'11.00" Weight: 210lbs. 7.0oz. [id number]; 28.00 BMI Method:Stated General Appearance: No Apparent Distress, WD/WN HEENT: PERRL/EOMI, Pharynx Normal Neck: Non Tender, Supple Respiratory: Lungs Clear, Normal Breath Sounds Cardiovascular: Regular Rate, Rhythm, No Murmur Gastrointestinal: Soft, Tenderness (mild suprapubic) Back: Normal Inspection, No CVA Tenderness, No Vertebral Tenderness Extremity: Normal Inspection, Normal Range of Motion Neurologic/Psychiatric: Alert, Oriented x3, No Motor/Sensory Deficits, timber cruiser II- XII Norm as Tested Skin: Normal Color, Warm/Dry Focused Exam Lactate Level 01/31/19 09:00: Lactic Acid Level 1.27 Lactic Acid Level Laboratory Tests Test 01/31/19 09:00 Lactic Acid Level 1.27 MMOL/L (0.50-2.00) Progress/Results/Core Measures Suspected Sepsis Recent Fever Within 48 Hours: No Infection Criteria Present: None New/Unexplained Altered Menta: No Sepsis Screen: No Definite Risk SIRS Temperature: Pulse: 98 Respiratory Rate: 18 Laboratory Tests 01/31/19 09:00: White Blood Count 4.8 Blood Pressure 174 /84 Mean: 114 01/31/19 09:00: Lactic Acid Level 1.27 Laboratory Tests 01/31/19 09:00: Creatinine 1.16, INR Comment 1.0, Platelet Count 178, Total Bilirubin 0.4 Results/Orders Lab Results Laboratory Tests Test 01/31/19 09:00 01/31/19 09:05 Range/Units White Blood Count 4.8 4.3-11.0 10^3/uL Red Blood Count 4.48 4.35-5.85 10^6/uL Hemoglobin 11.6 L 13.3-17.7 G/DL Hematocrit 37 L 40-54 % Mean Corpuscular Volume 82 80-99 FL Mean Corpuscular Hemoglobin 26 25-34 PG Mean Corpuscular Hemoglobin Concent 32 32-36 G/DL Red Cell Distribution Width 16.2 H 10.0-14.5 % Platelet Count 178 130-400 10^3/uL Mean Platelet Volume 11.1 H 7.4-10.4 FL Neutrophils (%) (Auto) 44 42-75 % Lymphocytes (%) (Auto) 33 12-44 % Monocytes (%) (Auto) 16 H 0-12 % Eosinophils (%) (Auto) 6 0-10 % Basophils (%) (Auto) 1 0-10 % Neutrophils # (Auto) 2.1 1.8-7.8 X 10^3 Lymphocytes # (Auto) 1.6 1.0-4.0 X 10^3 Monocytes # (Auto) 0.8 0.0-1.0 X 10^3 Eosinophils # (Auto) 0.3 0.0-0.3 10^3/uL Basophils # (Auto) 0.0 0.0-0.1 10^3/uL Prothrombin Time 13.9 12.2-14.7 SEC INR Comment 1.0 0.8-1.4 Activated Partial Thromboplast Time 24 24-35 SEC Sodium Level 137 135-145 MMOL/L Potassium Level 5.2 H 3.6-5.0 MMOL/L Chloride Level 107 98-107 MMOL/L Carbon Dioxide Level 22 21-32 MMOL/L Anion Gap 8 5-14 MMOL/L Blood Urea Nitrogen 21 H 7-18 MG/DL Creatinine 1.16 0.60-1.30 MG/DL Estimat Glomerular Filtration Rate > 60 BUN/Creatinine Ratio 18 Glucose Level 78 70-105 MG/DL Lactic Acid Level 1.27 0.50-2.00 MMOL/L Calcium Level 9.3 8.5-10.1 MG/DL Corrected Calcium 9.3 8.5-10.1 MG/DL Total Bilirubin 0.4 0.1-1.0 MG/DL Aspartate Amino Transf (AST/SGOT) 27 5-34 U/L Alanine Aminotransferase (ALT/SGPT) 9 0-55 U/L Alkaline Phosphatase 83 40-136 U/L Total Protein 6.9 6.4-8.2 GM/DL Albumin 4.0 3.2-4.5 GM/DL Urine Color YELLOW Urine Clarity SL CLOUDY Urine pH 6.0 5-9 Urine Specific [place] 1.020 1.016-1.022 Urine Protein NEGATIVE NEGATIVE Urine Glucose (UA) NEGATIVE NEGATIVE Urine Ketones NEGATIVE NEGATIVE Urine Nitrite NEGATIVE NEGATIVE Urine Bilirubin NEGATIVE NEGATIVE Urine Urobilinogen 0.2 < = 1.0 MG/DL Urine Leukocyte Esterase 2+ H NEGATIVE Urine RBC (Auto) 2+ H NEGATIVE Urine RBC 25-50 H /HPF Urine WBC >100 H /HPF Urine Squamous Epithelial Cells NONE /HPF Urine Crystals NONE /LPF Urine Bacteria FEW H /HPF Urine Casts NONE /LPF Urine Mucus NEGATIVE /LPF Urine Culture Indicated CULTURE PENDING My Orders Orders - MARKIE FREIRE MD Catheter(Urinary) Insert & Ass 03,15 (01/31/19 09:06) Ct Head Wo-R/O Stroke (01/31/19 09:06) Cbc With Automated Diff (01/31/19 09:06) Comprehensive Metabolic Panel (01/31/19 09:06) Blood Culture (01/31/19 09:06) Sputum Culture (01/31/19 09:06) Urinalysis (01/31/19 09:06) Urine Culture (01/31/19 09:06) Protime With Inr (01/31/19 09:06) Partial Thromboplastin Time (01/31/19 09:06) Chest 1 View, Ap/Pa Only (01/31/19 09:06) Vital Signs Adult Sepsis Patie Q15M (01/31/19 09:06) O2 (01/31/19 09:06) Remove Rings In Anticipation O (01/31/19 09:06) Lactic Acid Analyzer (01/31/19 09:06) Ns Iv 500 Ml (Sodium Chloride 0.9%) (01/31/19 09:06) Ct Angio Head/Neck (01/31/19 09:56) Iohexol Injection (Omnipaque 350 Mg/Ml 1 (01/31/19 10:00) Received Contrast (Hold Metformin- Contr (01/31/19 10:00) Sodium Chloride Flush (Catheter Flush Sy (01/31/19 10:00) Ns (Ivpb) (Sodium Chloride 0.9% Ivpb Bag (01/31/19 10:00) Ns Iv 500 Ml (Sodium Chloride 0.9%) (01/31/19 11:20) Rocephin 1g/Ns Iv (01/31/19 12:15) Medications Given in ED Current Medications Medications Dose Ordered Sig/Sukhjinder Route Start Time Stop Time Status Last Admin Dose Admin Iohexol 75 ml ONCE ONCE IV 01/31/19 10:00 01/31/19 10:05 DC 01/31/19 10:23 75 ML Sodium Chloride 10 ml NEEDED PRN IV 01/31/19 10:00 01/31/19 10:23 10 ML Sodium Chloride 100 ml ONCE ONCE IV 01/31/19 10:00 01/31/19 10:05 DC 01/31/19 10:23 80 ML Sodium Chloride 500 ml @ 0 mls/hr Q0M ONCE IV 01/31/19 09:06 01/31/19 09:11 DC 01/31/19 09:55 500 MLS/HR Sodium Chloride 500 ml @ 0 mls/hr Q0M ONCE IV 01/31/19 11:20 01/31/19 11:21 DC 01/31/19 11:26 500 MLS/HR Vital Signs/I&O 01/31/19 08:49 Temp 36.8 Pulse 98 Resp 18 B/P (MAP) 174/84 (114) Pulse Ox 98 O2 Delivery Room Air Capillary Refill : Less Than 3 Seconds Blood Pressure Mean: 114 POS Progress Note : Progress Note Seen and evaluated. IV by EMS. Normal saline 500 mL bolus. Labs ordered. Given his concerns of UTI, sepsis protocol was initiated. We will get CT of the head rule out stroke although he has no focal deficits currently and would be a 0 on stroke scale. He is outside of her for TPA as well as symptoms started prior to 10:30 PM last night. Patient has not had Hurd catheter changed in over 2 months and there is concerns of urinary tract infection so we will change catheter and get a urinalysis from urine after catheter replacement. Monitor patient. 0956: I have ordered a CT angiogram of the head and neck after discussion with radiologist due to concerns of possible basilar artery obstruction on CT. Given his dizziness and this may relate to posterior circulation stroke, CT angiogram will help identify if this is obstruction or just volume averaging on CT scan. Monitor patient. 1200: Rocephin 1 g IV ordered for UTI. CT angiogram negative. Patient feeling okay currently. We have repeated normal saline 500 mL bolus for contrast. Discharged home with return precautions. Patient verbalize understanding instructions and agreement with plan. Diagnostic Imaging Diagonstic Imaging: CT Plain Films/CT/US/NM/MRI: head Comments MED REC#: [id number] PT STATUS: REG ER : 1945 PHYSICIAN: MARKIE FREIRE MD ADMIT DATE: 01/31/19/ER Draft POSDate of Exam:01/31/19 CT HEAD WO-R/O STROKE PROCEDURE: CT head wo r/o stroke. TECHNIQUE: Multiple contiguous axial images were obtained through the brain without the use of intravenous contrast. Auto Exposure Controls were utilized during the CT exam to meet ALARA standards for radiation dose reduction. INDICATION: Dizziness, stumbling Study compared to 12/24/2016. FINDINGS: There was some calcified plaque in the intradural segment of the right vertebral artery stable. From images 10 through 12 series 2 there is questionable intraluminal hyperdensity within the basilar artery. The clinical features are compatible with a posterior fossa ischemia consider a CT angiogram head and neck as further evaluation. No appreciable cortical edema. No evidence for hemorrhage. No mass or mass effect. No findings of an elevation of the intracerebral pressures. The orbits, sinuses and calvarium within normal limits. IMPRESSION: Equivocal findings for hyperdensity within the basilar this region admittedly degraded by skull base artifact. However in the clinical scenario of suspicion for possible posterior fossa ischemia. CT angiographic evaluation of the neck and head suggested as further evaluation. No other potential change from previous imaging. Results were discussed by phone with Dr. Freire prior to dictation. Dictated on workstation # [id number] Dict: 01/31/19 0935 Trans: 01/31/19 0957 MARY [id number] Interpreted by: ODALYS AUSTIN Electronically signed by: Diagonstic Imaging: Xray Plain Films/CT/US/NM/MRI: chest Comments [facility] [place], [place] POS NAME: JORGE ALBERTO CALDWELL [facility] REC#: [id number] PT STATUS: REG ER : 1945 PHYSICIAN: MARKIE FREIRE MD ADMIT DATE: 01/31/19/ER Draft POSDate of Exam:01/31/19 CHEST 1 VIEW, AP/PA ONLY INDICATION: Stroke like symptoms, dizziness and stumbling. TECHNIQUE: Single view chest 9:49 AM. CORRELATION STUDY: 11/10/2018 FINDINGS: Prior sternotomy changes with coronary artery bypass. Left-sided pacemaker. Heart size is enlarged but stable. Left ventricular configuration. Vasculature overall within normal limits. Increased density in the retrocardiac region suspect for probable hiatal hernia. Chronic appearing changes about the lung parenchyma. No infiltrates demonstrated. Density at the lateral aspect of the left lung base is present largely obscured by overlying pacemaker. IMPRESSION: 1. Stable severity cardiac enlargement with post sternotomy changes. No acute abnormality. Dictated on workstation # [id number] Dict: 01/31/19 1001 Trans: 01/31/19 1008 AUREA [id number] Interpreted by: JOSESITO STANTON DO Electronically signed by: Diagonstic Imaging: CT Plain Films/CT/US/NM/MRI: head, other Comments [facility]. POS [place], [place] POS NAME: JORGE ALBERTO CALDWELL [facility] REC#: [id number] PT STATUS: REG ER : 1945 PHYSICIAN: MARKIE FREIRE MD ADMIT DATE: 01/31/19/ER Draft POSDate of Exam:01/31/19 CT ANGIO HEAD/NECK PROCEDURE: CT angiography of the head and CT angiography of the neck with and without contrast. TECHNIQUE: Contiguous noncontrast images were obtained from the skull base through the vertex. After intravenous contrast administration, helical CT angiography of the neck was performed. Source data was reformatted into 3D MIP projections. Delayed post contrast acquisition was also obtained. Auto Exposure Controls were utilized during the CT exam to meet ALARA standards for radiation dose reduction. INDICATION: Stroke. COMPARISON: Noncontrast head CT performed earlier today. FINDINGS: Noncontrast exam was not repeated. Post contrast imaging demonstrates no intracranial hemorrhage, mass effect, hydrocephalus, or extra-axial fluid collections. No CT evidence of a territorial infarction. CTA demonstrates a conventional aortic arch. The basilar, bilateral common carotid, internal carotid, vertebral, anterior cerebral, middle cerebral, and posterior cerebral arteries are widely patent. No evidence of aneurysm or dissection. Fairly mild scattered atherosclerotic calcifications. The dural venous sinuses are grossly patent. The anterior communicating artery is patent. origin right posterior cerebral artery. Moderate spondylotic changes in the cervical spine without acute findings. The visualized paravertebral soft tissues are unremarkable. IMPRESSION: No high-grade narrowing, aneurysm, or dissection involving the major arteries in the head and neck. Dictated on workstation # [id number] Dict: 01/31/19 1053 Trans: 01/31/19 1107 [id number] Interpreted by: AMBER LOAIZA MD Electronically signed by: Departure Impression Primary Impression: Urinary tract infection Qualified Codes: N30.01 - Acute cystitis with hematuria Additional Impression: Dizziness Disposition: 01 HOME, SELF-CARE Condition: Improved Departure-Patient Inst. Decision time for Depature: 12:07 Referrals: [facility] ([facility]Family) Primary Care Physician Patient Instructions: Dizziness, Nonvertigo, (DC), Urinary Tract Infection, Adult (DC) Add. Discharge Instructions: All discharge instructions reviewed with patient and/or family. Voiced understanding. Drink an appropriate amount of fluids. Take medications as directed. Follow-up with your DrPablo in a few days for recheck. Discussed with them about Hurd catheter replacement supplies. Return for worse pain, fever, vomiting, weakness, breathing problems or other concerns as needed. Scripts Cephalexin (Cephalexin) 500 Mg Tablet 500 MG PO BID, #10 TAB 0 Refills Prov: MARKIE FREIRE MD 01/31/19 MARKIE FREIRE MD Jan 31, 2019 10:12 POS
--- NOTE | 2019-01-31 10:18 | NUR ---
TO CT FOR ANGIO
--- NOTE | 2019-01-31 11:07 | Diagnostic Imaging Report ---
PROCEDURE: CT angiography of the head and CT angiography of the neck with and without contrast. TECHNIQUE: Contiguous noncontrast images were obtained from the skull base through the vertex. After intravenous contrast administration, helical CT angiography of the neck was performed. Source data was reformatted into 3D MIP projections. Delayed post contrast acquisition was also obtained. Auto Exposure Controls were utilized during the CT exam to meet ALARA standards for radiation dose reduction. INDICATION: Stroke. COMPARISON: Noncontrast head CT performed earlier today. FINDINGS: Noncontrast exam was not repeated. Post contrast imaging demonstrates no intracranial hemorrhage, mass effect, hydrocephalus, or extra-axial fluid collections. No CT evidence of a territorial infarction. CTA demonstrates a conventional aortic arch. The basilar, bilateral common carotid, internal carotid, vertebral, anterior cerebral, middle cerebral, and posterior cerebral arteries are widely patent. No evidence of aneurysm or dissection. Fairly mild scattered atherosclerotic calcifications. The dural venous sinuses are grossly patent. The anterior communicating artery is patent. origin right posterior cerebral artery. Moderate spondylotic changes in the cervical spine without acute findings. The visualized paravertebral soft tissues are unremarkable. IMPRESSION: No high-grade narrowing, aneurysm, or dissection involving the major arteries in the head and neck. Dictated by: Dictated on workstation # [id number]
[2019-01-31] MEDS ORDERED: CEPH500T PO (12:08)
[2019-01-31] MEDS ORDERED: cefTRIAXone FOR IV USE 1,000 MG in WATER (STERILE) FOR INJECTION 10 ML IV ONE (12:15)
--- NOTE | 2019-01-31 12:41 | NUR ---
VANNESSA LEFT IN PLACE LEG BAG GIVEN PATIENT WANTS TO PLACE OWN LEG BAG. Addendum: 01/31/19 at 1252 by PMCCLURE DELIA HURD
[2019-01-31 12:43] VITALS: BP 149/88
--- OUTSIDE RECORDS SUMMARY | 2019-02-25 21:32 | XMS REPORT | Encounter Summary ---
Author Author [facility] Organization [facility] Address Unknown Phone Unavailable Care Team Providers Care Day Care Provider Name Role Phone PCP Unavailable Encounter Details Care Team Description Date Type Department Mariam Tavarez MD [address] [place] [address] Julio Verdin DO [address] [place] [address] Coronary atherosclerosis of [place] coron jg artery 02/19/2013 [facility] - Encounter [address] 02/26/2013 [place], [place] [id number] Social History Date Tobacco Use Types Packs/Day Years Used Never Assessed Sex Assigned at Date Recorded Not on file Industry Job Start Date Occupation Not on file Not on file Not on file Travel End Travel History Travel Start No recent travel history available. documented as of this encounter Discharge Summaries * Mariam Tavarez MD - 04/26/2013 3:43 PM SUGAR TRUCKER REPORT Name: JORGE ALBERTO BANUELOS Date of : 1945 Attending Physician: Date of Admission: 02/19/2013 Date of Discharge: 02/26/2013 DISCHARGE DIAGNOSES: Bilateral lower extremity deep vein thrombosis, multivessel coronary artery disease, obstructive uropathy with renal insufficiency, continued urinary retention requiring chronic Sandhu, ischemic cardiomyopathy, normocytic anemia. DISPOSITION: The patient is being dismissed to home. CONSULTS: Consultants involved in the care of this patient included urology and CT surgery. He was seen for a second opinion regarding his coronary artery disease. HISTORY AND HOSPITAL COURSE: Please review the complete history and physical that was dictated at the time of this patient's admission, but in summary, Mr. Banuelos is a 67-year-old gentleman with a known history of coronary artery disease, acute kidney injury, obstructive uropathy; all of which were originally diagnosed in the transferring facility at [facility] on 02/08/2013. The patient initially presented to that facility with chest discomfort, shortness of breath while lying down. The patient also reported some difficulty with urination, that he was having frequent urination about every 15 minutes at night. The patient did have a cardiac catheterization done elsewhere that revealed an ejection fraction that was depressed between 40% and 45%. He was found to have multivessel coronary artery disease. Given those findings, he was sent to [facility] for a CTS evaluation. The patient was recommended bypass procedure; however, his sisters requested a second opinion here at [facility]. The patient was seen in consultation by CT surgery and they have recommended reevaluation in the outpatient setting in 6 weeks. The patient continued to have difficulty with urinary retention and urology was consulted. The patient had a Sandhu catheter placed and showed a great volume of urine. The patient was started on Flomax as well as Proscar; unfortunately, he did fail his voiding trial and will be dismissed with a chronic Sandhu. He should follow up with his outpatient urologist. The patient did come to us with a diagnosis of deep vein thrombosis. 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 He will need at least 6 months of treatment. Also, he is felt to have benign prostatic hypertrophy with urinary retention and again his Sandhu will remain in place. The patient's other evaluation has concluded. He has been transitioned to Lovenox 1 mg/kg subcutaneous as needed and that should be continued until his INR is greater than 2.0; at the time of this dictation his INR is 1.8. He is on 7.5 mg of Coumadin and he will continue with that. His hemoglobin A1c was 5.7, his PSA was within normal limits at 2.90. Sedimentation rate is 14. His lipid profile was normal with a total cholesterol of 164, triglycerides of 56, HDL of 59 and LDL of 94. The patient is doing well. He continues to have some element of renal insufficiency with a baseline creatinine of approximately 1.5, that will need to be repeated going forward and again, the patient will need to come back for a CTS evaluation in 6 weeks. DISCHARGE MEDICATIONS: Electronically generated summary for 1. ACETAMINOPHEN ORAL 325-650 mg Every 6 hours PRN 2. DOCUSATE SODIUM ORAL 100 mg 2 times per day PRN 3. ENOXAPARIN SUBQ 80 mg Every 12 hours until INR > or equal to 2.0 4. FLOMAX ORAL 0.4 mg Daily 5. POLYETHYLENE GLYCOL 1 packet Daily PRN 6. PROSCAR ORAL 5 mg Daily 7. WARFARIN ORAL 7.5 mg Daily PM Mariam Tavarez MD [id number] cc: Saritha Goff MD, Jd Slater MD R TRUCKER documented in this encounter H&P Notes * Popeye Flor, DO - 04/26/2013 3:46 PM SUGAR TRUCKER REPORT Name: JORGE ALBERTO BANUELOS Date of : 1945 Attending Physician: Date of Admission: 02/19/2013 11:06:00 PRIMARY CARE PHYSICIAN: Jd Slater M.D. CHIEF COMPLAINT: The patient was transferred from [facility] for a second opinion by our cardiothoracic surgeons regarding his 3-vessel coronary artery disease. HISTORY OF PRESENT ILLNESS: A 67-year-old gentleman with known history of coronary artery disease, acute kidney injury and also found to have obstructive uropathy who has been originally at [facility] on 02/08/2013 with his presentation involving chest discomfort and shortness of breath when he was lying down. He also had increase in urination almost every 15 minutes at night which was bothering him and therefore he presented himself at [facility] in [place], [place]. Done at [facility], I do not have the records from this facility, but they have done a cath which found EF of 40%-45%. PA pressures of 45 with multivessel coronary artery disease. Given the findings of this cath, he was sent to [facility] at [facility] on 02/13/2013 for CTS evaluation. His chest pain had resolved. He had a Sandhu placed at [facility] for his increase in urination. At [facility], he has had a carotid ultrasound done that was within normal limits, a greater saphenous vein mapping that showed a left saphenous vein occlusion. He has had ultrasound of his bilateral lower extremities where they found chronic right lower extremity DVT in the popliteal and peroneal veins and also in the left lower extremity chronic nonocclusive popliteal and peroneal vein DVT and a left saphenous chronic thrombus was also seen. He had PFTs done on 02/14/2013 that were within normal limits spirometry but with some moderate air trapping and some mild diffusion capacity defect. He has had a renal ultrasound done on 02/14/2013 that showed mild right hydronephrosis, mild left pelvic atelectasis. He has had an A1c of 5.2%, LDL 113 and HDL of 52. His urinalysis did not reveal any acute infection or proteinuria on 02/13. He was send up to have a bypass; however, they had to hold off on it because of another emergent case. He requested he transferred to [facility] for a second opinion per his sisters requested. At the bedside, the patient is chest pain-free, no shortness of breath. No nausea or vomiting. No fevers or chills. His creatinine of note was 6.5 on admission to [facility]. REVIEW OF SYSTEMS: All 12 systems are assessed and are negative except for the original chest discomfort he had had at [facility] and the shortness of breath and lower extremity edema. PAST MEDICAL HISTORY: Significant for cataracts and urinary retention secondary to BPH and history of rheumatic fever. PAST SURGICAL HISTORY: Includes cataract surgery bilaterally in 2008, tonsillectomy when he was a child. ALLERGIES: No known drug allergies. HOME MEDICATIONS: Include Feosol 325 mg p.o. b.i.d., Proscar 5 mg p.o. daily and this was started at [facility] and Flomax 0.4 mg p.o. at bedtime started at [facility] and they also started him on heparin drip for the chronic occlusive DVTs. He was on Protonix and Haldol p.r.n. and other p.r.n. medications. FAMILY HISTORY: Positive for coronary artery disease. His father at the age of 83 with an RI and CHF. SOCIAL HISTORY: He is a nonsmoker and occasional beer. 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 He was in the [employer]. He is a full code. His sister is Marium Escudero. Home number is [phone]. She is a DPOA. If we are unable to reach her, we can try Nalini Avalos's who is [place]. His number is [phone]. PHYSICAL EXAMINATION: VITAL SIGNS: His vitals are being obtained at this time. His temperature is 97.9, heart rate of 56, blood pressure is 119/66 and sating 100% on room air. GENERAL ASSESSMENT: No acute distress. He is alert and oriented x3. HEENT: Head is normocephalic. Pupils are equally round and reactive to light. Extraocular muscles are intact. Throat is supple. No cervical lymphadenopathy is noted. Trachea is midline. HEART: Regular rhythm, no murmurs auscultated. LUNGS: Clear to auscultation bilaterally. ABDOMEN: Soft and nontender. LOWER EXTREMITY: Mild trace peripheral edema is seen. NEUROLOGIC: Cranial nerves II through XII are intact. Motor and sensory functions in the upper and lower extremities are grossly intact. SKIN: No rash was seen in the upper and lower extremity. LABORATORY DATA: This is from [facility] on 02/19/2013, hemoglobin 9.5, white count 5.2, MCV of 89.9 and platelets of 225. His ferritin was 250. His creatinine is 1.6. It was 1.6, 1.5 and 1.5 previously and BUN of 33. His sodium is 138, potassium 4.4, chloride 106 and glucose of 95. ASSESSMENT AND PLAN: This is a 67-year-old gentleman with: 1. Multivessel known coronary artery disease. I will request that we load up the cath and echo CD that has been provided for CTS evaluation. CTS consult will be placed. He has no active chest pain at this time. 2. Deep venous thrombosis: I reviewed his ultrasound report. We will continue heparin drip at this time. He will be need to transition to Coumadin. This is likely an unprovoked idiopathic deep venous thrombosis possibly. He will need at least 6 months of treatment. 3. Benign prostatic hyperplasia with retention, improved with Sandhu. Renal ultrasound showed some mild hydronephrosis. I will ask urology to evaluate him. 4. Acute kidney injury. This likely may have been contrast nephropathy with a creatinine of 6.5 on admission to [facility]. It has improved to 1.6 and has remained in 1.5-1.6 area and his serum protein electrophoresis and urine protein electrophoresis have been negative that was checked at [facility]. He possibly does have some CKD underlying. There was no proteinuria in the urinalysis. He will need continued outpatient followup. 5. Normocytic anemia, likely anemia of chronic disease. No signs of any active bleeding. 6. Fluids, electrolytes and nutrition. He will be on a simply healthy diet. His A1c was 5.2%. Deep venous thrombosis prophylaxis, heparin drip. DISPOSITION: The patient is full code, will follow up with CTS evaluation and urology. Popeye Flor DO [id number] CC: cc: Jd Slater MD R TRUCKER * Daniel Goff MD - 04/26/2013 3:46 PM SUGAR TRUCKER REPORT Name: JORGE ALBERTO BANUELOS Date of : 1945 Attending Physician: Date of Service: REASON FOR EVALUATION AND MANAGEMENT: REASON FOR CONSULTATION: Second opinion regarding coronary artery disease. HISTORY OF PRESENT ILLNESS: Mr. Banuelos is a 67-year-old gentleman with no real medical history who was transferred here from [facility] for a second opinion regarding coronary artery bypass grafting surgery. He states that his initial presentation to the hospital involved some urinary retention where he had some complaints of left flank pain and went to the emergency department. He does state that he is normally up 1-2 times per night urinating; however, this particular evening he was up 3 and 4 times and was unable to sleep. He also says that he has had progressive shortness of breath at night when he lies flat in his bed that is relieved when he sits up and takes ibuprofen. He denies any nausea, vomiting, palpitations, or radiation of this pain in any way. He did present to the emergency room and on admission a chest x-ray was performed, which was consistent with pulmonary edema. He also had elevated creatinine secondary to urinary retention and a Sandhu catheter was placed. He was seen by urology and a cystoscopy was performed, which did not identify any obstructive pathology and he has since been started on Proscar and Flomax for prostate enlargement. He currently still has a Sandhu catheter in place. He did have a cardiac catheterization performed secondary to the fact that he has been having some chest pains. This did show multivessel coronary disease and an echocardiogram was performed as well that showed an EF of 40-45%. Upon review of the records, he actually was scheduled for surgery at [facility] on the and then again on the ; however, was cancelled both days secondary to emergencies that had occurred there. He then recommended transfer to [place] for a second opinion and to have surgery up here. He was not loaded with any sort of antiplatelet therapy that I can see from the records. Of note, he also did have lower extremity Doppler studies done as part of a workup for his coronary artery disease in preparation for surgery and they did identify 2 lower extremity DVTs, both in the popliteal veins on the right and the left, and a chronic nonocclusive clot in the distal left superficial femoral vein. He also had vein mapping, which shows a lesser saphenous vein that was occluded. He has been started on heparin; however, has not been bridged to Coumadin secondary to the need for bypass surgery and it is unsure that he even had a CT angiogram to rule out any pulmonary embolus as his creatinine was initially elevated on initial presentation. PAST MEDICAL HISTORY: Prostate enlargement, acute renal failure now resolving, bilateral lower extremity DVTs, history of rheumatic fever, and cataracts. PAST SURGICAL HISTORY: Negative. SOCIAL HISTORY: The patient is not . He is a lifelong nonsmoker. He does not drink alcohol on a regular basis. 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 FAMILY HISTORY: Significant for heart disease in his dad and cancer in his mom. MEDICATIONS: Home medications only included ibuprofen as needed and fish oil 1000 mg daily. ALLERGIES: No known drug allergies. REVIEW OF SYSTEMS: A 12 point review of systems has been reviewed and is significant only what is stated in the HPI. He also has lost probably 10-12 pounds in the last several months, which is unexplained. All other systems appear to be negative. PHYSICAL EXAMINATION: CONSTITUTIONAL: This is a well-developed, well-nourished gentleman who is sitting upright in bed currently working on his computer at the time of my initial interview. VITAL SIGNS: He stands 180 cm, weighs 74.5 kg, temperature 97.9, heart rate of 46 in sinus, respirations of 18, blood pressure 117/57, room air saturating at 99%. SKIN: [place], warm, and dry. No masses or lesions noted. HEENT: Atraumatic, normocephalic. Pupils equal and reactive to light and accommodation. EOMs are full. Conjunctivae are pink. Dentition in good repair.. NECK: Supple. Trachea midline. No JVD, bruit, adenopathy, or thyroid abnormality. RESPIRATORY: Ventilation is symmetrical. Lungs are clear to auscultation in all lobes. CARDIOVASCULAR: Regular rate and rhythm. S1 and S2 are heard without murmur, gallop, or rub. ABDOMEN: Soft, nontender, no masses or hepatosplenomegaly noted. EXTREMITIES: Without deformity or limitation. There is no edema in the bilateral lower extremities. He does have palpable dorsalis pedis and posterior tibial pulses. NEUROLOGIC: He is alert and oriented x3 with normal affect. LABS AND TESTS: Hemoglobin 9.6, hematocrit 28, platelets 200, white count of 4.18, magnesium 1.6, INR of 1.2, creatinine of 1.5. IMPRESSION: This is a 67-year-old gentleman with the following issues: 1. Multivessel coronary artery disease. 2. Bilateral lower extremity deep venous thromboses. 3. Obstructive uropathy, now resolving. 4. Acute kidney injury, resolving now with a creatinine of 1.5. 5. Ischemic cardiomyopathy with an ejection fraction of 40-45% reported per echocardiogram reports. PLAN: We will take Mr. Banuelos's films to the blood bank laboratory technologist and have them loaded so that we may visualize his echocardiogram as well as his coronary angiogram that he had at [facility]. It would possibly be worth obtaining a CTA of his chest to determine whether or not he has any pulmonary emboli. He did have elevated PA pressures by echocardiogram; however, normal pulmonary function tests. His carotid studies were also normal with no evidence of occlusions. Further surgical recommendations will follow. Saritha Goff MD Dictated By: Maria L Edouard RN, ANP [id number] CC: R TRUCKER documented in this encounter Consult Notes * Allan Moore MD - 04/26/2013 3:46 PM SUGAR TRUCKER REPORT Name: JORGE ALBERTO BANUELOS Date of : 1945 Attending Physician: Date of Admission: 02/19/2013 Hide Inspector: ANGLE Fairbanks Date of Consultation: 02/20/2013 REASON FOR CONSULTATION: History of BPH, obstructive uropathy. HISTORY OF PRESENT ILLNESS: This patient is a 67-year-old gentleman who was transferred here from [facility] for a second opinion by cardiothoracic surgery regarding his coronary artery disease. Also, a week ago, he was diagnosed with obstructive uropathy, had a Sandhu placed, was started on Flomax and Proscar. He did have creatinine around in the 6 range, it is now down to 1.5. He did see a urologist and did have cystoscopy done. Apparently, there was just BPH noted. I do not have the actual records regarding this. He has had his Sandhu catheter in for approximately 1 week. It is not bothering him currently. He is also being treated for DVTs as well. He tells me, his urologist wanted to follow up with him in the next week or so to possibly ultrasound his prostate, I am unsure of the reasoning for this. PAST MEDICAL HISTORY: Includes rheumatic fever, urinary retention and cataracts. MEDICINES: Include Feosol, Proscar, Flomax, and Protonix. ALLERGIES: No known drug allergies. SOCIAL HISTORY: Noncontributory to examination. FAMILY HISTORY: Noncontributory to examination. PHYSICAL EXAMINATION: VITAL SIGNS: Currently, temperature 97.7, pulse 50 and blood pressure 114/54. GENERAL: He is alert and oriented. No acute distress. HEENT: Is grossly intact. LUNGS: Normal respiratory effort. GENITOURINARY: He has a Sandhu catheter in place, draining yellow urine. LABORATORY: His hemoglobin is 9.6, white blood cell count 4.1. INR 1.2. Creatinine 1.5. IMPRESSION: 1. Recent obstructive uropathy with acute renal failure, now improving. 2. BPH. PLAN: Continue him on his Flomax and Proscar. We would give him a voiding trial once he is up and ambulatory and when his heart issues are figured out as to whether or not he is going to need surgery. As he is not going to undergo heart surgery, we would give him a voiding trial at any time. If he is going to have a heart procedure, I would give him a voiding trial after that is completed. Thank you for allowing me to participate in this patient's care. We will follow along with you. Allan Moore MD Dictated By: ANGLE Fairbanks [id number] CC: R TRUCKER documented in this encounter Plan of Treatment Not on filedocumented as of this encounter Procedures Comments Procedure Name Priority Date/Time Associated Diag nosis CBC AND DIFF (MANUAL DIFF Routine 02/26/2013 IF NECESSARY) 11:25 AM SUGAR TRUCKER BASIC METABOLIC PANEL Routine 02/26/2013 11:25 AM SUGAR TRUCKER PROTHROMBIN TIME/INR Routine 02/26/2013 5:50 AM SUGAR TRUCKER PROTHROMBIN TIME/INR Routine 02/25/2013 4:12 PM SUGAR TRUCKER PROTHROMBIN TIME/INR Routine 02/25/2013 4:27 AM SUGAR TRUCKER PROTHROMBIN TIME/INR Routine 02/24/2013 4:01 PM SUGAR TRUCKER PROTHROMBIN TIME/INR Routine 02/24/2013 5:13 AM SUGAR TRUCKER HEPARIN ANTI FACTOR XA, Routine 02/24/2013 UNFRACTIONATED HEPARIN 5:13 AM SUGAR TRUCKER PROTHROMBIN TIME/INR Routine 02/23/2013 3:55 PM SUGAR TRUCKER RENAL PANEL Routine 02/23/2013 4:38 AM SUGAR TRUCKER PROTHROMBIN TIME/INR Routine 02/23/2013 4:38 AM SUGAR TRUCKER HEPARIN ANTI FACTOR XA, Routine 02/23/2013 UNFRACTIONATED HEPARIN 4:38 AM SUGAR TRUCKER PROTHROMBIN TIME/INR Routine 02/22/2013 5:49 PM SUGAR TRUCKER PROTHROMBIN TIME/INR Routine 02/22/2013 3:52 AM SUGAR TRUCKER HEPARIN ANTI FACTOR XA, Routine 02/22/2013 UNFRACTIONATED HEPARIN 3:52 AM SUGAR TRUCKER HEMOGLOBIN A1C Routine 02/22/2013 3:52 AM SUGAR TRUCKER COMPLETE BLOOD COUNT Routine 02/22/2013 3:52 AM SUGAR TRUCKER BASIC METABOLIC PANEL Routine 02/22/2013 3:52 AM SUGAR TRUCKER PSA DIAGNOSTIC Routine 02/21/2013 6:16 AM SUGAR TRUCKER PROTHROMBIN TIME/INR Routine 02/21/2013 6:16 AM SUGAR TRUCKER MAGNESIUM Routine 02/21/2013 6:16 AM SUGAR TRUCKER LIPID PANEL Routine 02/21/2013 6:16 AM SUGAR TRUCKER HEPARIN ANTI FACTOR XA, Routine 02/21/2013 UNFRACTIONATED HEPARIN 6:16 AM SUGAR TRUCKER ERYTHROCYTE SEDIMENTATION Routine 02/21/2013 RATE 6:16 AM SUGAR TRUCKER C-REACTIVE PROTEIN Routine 02/21/2013 6:16 AM SUGAR TRUCKER COMPLETE BLOOD COUNT Routine 02/21/2013 6:16 AM SUGAR TRUCKER BASIC METABOLIC PANEL Routine 02/21/2013 6:16 AM SUGAR TRUCKER PLATELET Routine 02/20/2013 8:00 PM SUGAR TRUCKER APTT Routine 02/20/2013 2:03 AM SUGAR TRUCKER PROTHROMBIN TIME/INR Routine 02/20/2013 2:03 AM SUGAR TRUCKER PHOSPHORUS Routine 02/20/2013 2:03 AM SUGAR TRUCKER MAGNESIUM Routine 02/20/2013 2:03 AM SUGAR TRUCKER HEPARIN ANTI FACTOR XA, Routine 02/20/2013 UNFRACTIONATED HEPARIN 2:03 AM SUGAR TRUCKER COMPREHENSIVE METABOLIC Routine 02/20/2013 PANEL 2:03 AM SUGAR TRUCKER COMPLETE BLOOD COUNT Routine 02/20/2013 2:03 AM SUGAR TRUCKER BASIC METABOLIC PANEL Routine 02/19/2013 9:54 PM SUGAR TRUCKER APTT Routine 02/19/2013 7:48 PM SUGAR TRUCKER PROTHROMBIN TIME/INR Routine 02/19/2013 7:48 PM SUGAR TRUCKER HEPARIN ANTI FACTOR XA, Routine 02/19/2013 UNFRACTIONATED HEPARIN 7:48 PM SUGAR TRUCKER documented in this encounter Results * CBC and Diff (manual diff if necessary) (02/26/2013 11:25 AM SUGAR TRUCKER) WBC 3.81 (L) 4.00 - 11.00 TH/UL [facility] RBC 3.43 (L) 4.31 - 5.84 MIL/UL [facility] Hemoglobin 10.2 (L) 13.0 - 17.0 G/DL [facility] Hematocrit 31 (L) 40 - 50 % [facility] MCV 89 80 - 99 FL [facility] MCH 30 27 - 34 PG [facility] MCHC 33 32 - 36 % [facility] RDW 15.6 (H) 9.0 - 14.5 % [facility] Platelet Count 183 140 - 400 TH/UL [facility] MPV 11.2 9.4 - 12.3 FL [facility] % Neutrophils 47 45 - 78 % [facility] %Lymphocytes 39 15 - 47 % [facility] %Monocytes 10 0 - 12 % [facility] %Eosinophils 3 0 - 7 % [facility] Nucleated RBCs 0 0 - 0 /100 [facility] # Basophils 0.06 0.00 - 0.10 TH/UL [facility] # Eosinophils 0.12 0.00 - 0.40 TH/UL [facility] %Basophils 2 0 - 2 % [facility] # Monocytes 0.37 0.20 - 0.90 TH/UL [facility] # Lymphocytes 1.47 1.00 - 3.30 TH/UL [facility] # Granulocytes 1.79 1.70 - 6.80 TH/UL [facility] % Imm Grans 0 0 - 1 % [facility] Specimen Blood Performing Organization Address [facility] Ph one Number [id number] [phone] [place], [place] [address] [facility] [address] [place] [phone] * Basic Metabolic Panel (02/26/2013 11:25 AM SUGAR TRUCKER) Only the most recent of 4 results within the time period is included. Sodium 138 133 - 147 MEQ/L [facility] Potassium 4.8 3.5 - 5.3 MEQ/L [facility] Chloride 101 96 - 112 MEQ/L [facility] Carbon Dioxide 29 20 - 30 MEQ/L [facility] Anion Gap 7 5 - 17 [facility] Creatinine 1.5 (H) 0.6 - 1.3 MG/DL [facility] Blood Urea 43 (H) 7 - 26 MG/DL [facility] Nitrogen Glucose 82 70 - 100 MG/DL [facility] Calcium 9.7Comment: Calcium reference 8.4 - 10.5 MG/DL [facility] interval changed 02/14/2013. eGFR Male 46 [facility] Non-AA Comment: Chronic Kidney Disease less than 60 mL/min/1.73 sq.m Kidney failure less than 15 mL/min/1.73 sq.m eGFR Male AA 56 [facility] Comment: Chronic Kidney Disease less than 60 mL/min/1.73 sq.m Kidney failure less than 15 mL/min/1.73 sq.m Specimen Blood Performing Organization Address [facility] one Number [facility] [phone] [place], [place] [address] [facility] [address] [place] [place] [id number] [phone] * Prothrombin Time/INR (02/26/2013 5:50 AM [employer]) Only the most recent of 12 results within the time period is included. Protime 21.0 (H) 11.7 - 14.3 SEC [facility] INR 1.9 (H) 0.9 - 1.1 [facility] Specimen Blood Performing Organization Address [facility] one Number [address] [place], [place] [address] [facility] [address] [place] [id number] [phone] * Heparin Anti Factor Xa, Unfractionated Heparin (02/24/2013 5:13 AM [employer]) Only the most recent of 6 results within the time period is included. Pathologist [facility] Unfractionated 0.69Comment: Therapeutic range 0.30 - 0.70 IU/ ML [facility] Heparin Anti may vary based on physician Factor Xa Assay orders or order set. Specimen Blood Performing Organization Address [facility] one Number [address] [place], [place] [address] [facility] [address] [place], [place] [address] * Renal Panel (02/23/2013 4:38 AM [employer]ER) Pathologist [facility] Sodium 137 133 - 147 MEQ/L HLAB Potassium 5.1 3.5 - 5.3 MEQ/L [facility] Chloride 103 96 - 112 MEQ/L [facility] Carbon Dioxide 23 20 - 30 MEQ/L [facility] Creatinine 1.5 (H) 0.6 - 1.3 MG/DL HL[facility] Blood Urea 41 (H) 7 - 26 MG/DL HLAB Nitrogen Glucose 83 70 - 100 MG/DL HLAB Anion Gap 11 5 - 17 [facility] Phosphorus 4.4 2.5 - 4.5 MG/DL [facility] Albumin 3.6 3.5 - 5.0 G/DL [facility] Calcium 9.7Comment: Calcium reference 8.4 - 10.5 MG/DL [facility] interval changed 02/14/2013. eGFR Male AA 56 [facility] Comment: Chronic Kidney Disease less than 60 mL/min/1.73 sq.m Kidney failure less than 15 mL/min/1.73 sq.m eGFR Male 46 HLAB Non-AA Comment: Chronic Kidney Disease less than 60 mL/min/1.73 sq.m Kidney failure less than 15 mL/min/1.73 sq.m Specimen Blood Performing Organization Address [facility] one Number [address] [place], [place] [address] [facility] [address] [place], [place] [address] * Complete Blood Count (02/22/2013 3:52 AM [employer]) Only the most recent of 3 results within the time period is included. WBC 4.02 4.00 - 11.00 TH/UL HLAB RBC 3.27 (L) 4.31 - 5.84 MIL/UL [facility] Hemoglobin 9.6 (L) 13.0 - 17.0 G/DL [facility] Hematocrit 29 (L) 40 - 50 % HL[facility] MCV 88 80 - 99 FL [facility]AB MCH 29 27 - 34 PG HLAB MCHC 33 32 - 36 % HL[facility] RDW 15.2 (H) 9.0 - 14.5 % [facility] Platelet Count 192 140 - 400 TH/UL [facility] MPV 10.8 9.4 - 12.3 FL [facility] Nucleated RBCs 0 0 - 0 /100 [facility] Specimen Blood Performing Organization Address [facility] one Number [address] [place], [place] [address] [facility] [address] [place], [place] [address] * Hemoglobin A1C (02/22/2013 3:52 AM [employer]ER) HEMOGLOBIN A1C 5.4 4.0 - 5.6 % HLAB Comment: Non-diabetic 4.0 - 5.6 % Prediabetes 5.7 - 6.4 % Diabetes >= 6.5 % Specimen Blood Performing Organization Address [facility] one Number [address] [place], [place] [address] [facility] [address] [place] [phone] * Magnesium (02/21/2013 6:16 AM [employer]) Only the most recent of 2 results within the time period is included. Magnesium 2.0 1.4 - 2.7 MG/DL [facility] Specimen Blood Performing Organization Address [facility] one Number [address] [place], [place] [address] [facility] [address] [place], [place] [address] * Lipid Panel (02/21/2013 6:16 AM [employer]ER) Cholesterol 164 100 - 200 MG/DL HLAB Triglycerides 56 0 - 150 MG/DL HL[facility] HDL Cholesterol 59 40 - 110 MG/DL HL[facility] LDL Cholesterol 94 0 - 99 MG/DL [facility] Cholesterol/HDL 2.8 0.0 - 4.5 HL[facility] Ratio Non-HDL 105 0 - 130 MG/DL [facility] Cholesterol Specimen Blood Performing Organization Address [facility] one Number [address] [place], [place] [address] [facility] [address] [place], [place] [address] * PSA Diagnostic (02/21/2013 6:16 AM [employer]ER) PSA Diagnostic 2.90Comment: Method for Saint 0.00 - 4.00 NG/M L HL[facility] is [employer] [id number]. Specimen Blood Performing Organization Address [facility] one Number [address] [place], [place] [address] [facility] [address] [place], [place] [address] * C-Reactive Protein (02/21/2013 6:16 AM [employer]ER) C Reactive <5.0Comment: Infection or 0.0 - 10.0 MG/L HLA B Protein Inflammation >10.0 mg/L Specimen Blood Performing Organization [facility] one Number [address] [place], [place] [address] [facility] [address] [place] [id number] [phone] * Erythrocyte Sedimentation Rate (02/21/2013 6:16 AM [employer] TR[employer]ER) Sed Rate 14 (H) 0 - 12 MM/H HLAB Specimen Blood Performing Organization [facility] one Number [address] [place], [place] [address] [facility] [address] [place] [phone] * Platelet (02/20/2013 8:00 PM [employer]ER) Platelet Count 223 140 - 400 TH/UL [facility] Specimen Blood Performing Organization Address [facility] one Number [address] [place], [place] [address] [facility] [address] [place] [phone] * Phosphorus (02/20/2013 2:03 AM [employer]) Phosphorus 4.1 2.5 - 4.5 MG/DL [facility] Specimen Blood Performing Organization [facility] one Number [address] [place], [place] [address] [facility] [address] [place] [phone] * Comprehensive Metabolic Panel (02/20/2013 2:03 AM [employer]ER) Albumin 3.3 (L) 3.5 - 5.0 G/DL HLAB Aspartate 37 15 - 46 IU/L HLAB Aminotransferas e Bilirubin Total 0.6 0.2 - 1.3 MG/DL [facility] Protein Total 6.5 6.0 - 8.2 G/DL [facility]AB Serum Calcium 9.3Comment: Calcium reference 8.4 - 10.5 MG/DL [facility] interval changed 02/14/2013. Creatinine 1.5 (H) 0.6 - 1.3 MG/DL HLAB Glucose 80 70 - 100 MG/DL [facility] Alkaline 63 42 - 140 IU/L HLAB Phosphatase Sodium 136 133 - 147 MEQ/L [facility] Potassium 4.7 3.5 - 5.3 MEQ/L [facility] Chloride 104 96 - 112 MEQ/L [facility] Carbon Dioxide 23 20 - 30 MEQ/L [facility] Blood Urea 36 (H) 7 - 26 MG/DL HL[facility] Nitrogen Anion Gap 9 5 - 17 HLAB Alanine 33 13 - 69 IU/L HLAB Aminotransferas e eGFR Male 46 HLAB Non-AA Comment: Chronic Kidney Disease less than 60 mL/min/1.73 sq.m Kidney failure less than 15 mL/min/1.73 sq.m eGFR Male AA 56 [facility] Comment: Chronic Kidney Disease less than 60 mL/min/1.73 sq.m Kidney failure less than 15 mL/min/1.73 sq.m Specimen Blood Performing Organization Address [facility] one Number [address] [place], [place] [address] [facility] [address] [place], [place] [address] * APTT (02/20/2013 2:03 AM [employer]ER) Only the most recent of 2 results within the time period is included. 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
--- OUTSIDE RECORDS SUMMARY | 2019-02-25 21:32 | XMS REPORT | Clinical Summary ---
Author Author [facility] Organization [facility] Address Unknown Phone Unavailable Care Team Providers Care Public Address System Installer Name Role Phone PCP Unavailable Allergies Not on File Medications Not on file Active Problems Not on file Social History Date Tobacco Use Types Packs/Day Years Used Never Assessed Sex Assigned at Date Recorded Not on file Industry Job Start Date Occupation Not on file Not on file Not on file Travel End Travel History Travel Start No recent travel history available. Last Filed Vital Signs Not on file Plan of Treatment Not on file Results Not on filefrom Last 3 Months
--- OUTSIDE RECORDS SUMMARY | 2019-02-25 21:34 | XMS REPORT | Continuity of Care Document ---
Author Organization Unknown Address Unknown Phone Unavailable Allergies Active Description Code Type Severity Reaction Onset Reported/Identified Relationship to Patient Clinical Status Yes No Known Drug Allergies [id number] Drug Allergy Unknown N/A 02/08/2013 Yes metoprolol [id number] Drug Allerg y Unknown N/A 09/18/2014 Yes rivaroxaban [id number] Drug Aller gy Unknown N/A 12/18/2014 Yes metoprolol [id number] Drug Allerg y Mild SKIN SENSITIVIT 10/11/2018 Yes rivaroxaban [id number] Drug Aller gy Mild N/V 10/11/2018 Medications There is no data. Problems Date Dx Coded Attending Type Code Diagnosis Diagnosed By 03/05/2013 SOLOMON CAMPOS, JAYJAY Medeiros Ot 257.2 03/05/2013 SOLOMON CAMPOS, JAYJAY A Ot 414.0 1 03/05/2013 SOLOMON CAMPOS, JAYJAY A Ot 425.4 03/05/2013 SOLOMON CAMPOS, JAYJAY A Ot 428.0 03/05/2013 SOLOMON CAMPOS, JAYJAY A Ot 564.0 0 03/05/2013 SOLOMON CAMPOS, JAYJAY A Ot 586 03/05/2013 SOLOMON CAMPOS, JAYJAY A Ot 596.5 4 03/05/2013 SOLOMON CAMPOS, JAYJAY A Ot 599.0 03/05/2013 SOLOMON CAMPOS, JAYJAY A Ot 599.7 1 03/05/2013 SOLOMON CAMPOS, JAYJAY A Ot 600.0 1 03/05/2013 SOLOMON CAMPOS, JAYJAY A Ot 607.8 4 03/05/2013 SOLOMON CAMPOS, JAYJAY A Ot 788.2 0 03/05/2013 SOLOMON CAMPOS, JAYJAY A Ot V12.5 1 03/05/2013 SOLOMON CAMPOS, JAYJAY A Ot V58.6 1 03/05/2013 SOLOMON CAMPOS, JAYJAY A Ot V58.6 6 09/11/2013 PIEDAD RILEY MD Ot 599.0 URIN TRACT INFECTION NOS 09/11/2013 PIEDAD RILEY MD Ot 729.81 SWELLING OF LIMB 09/11/2013 PIEDAD RILEY MD Ot 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 19 03/19/2014 ARNEL REZA MD Ot 453. 40 03/19/2014 ARNEL REZA MD Ot 414. 01 CORONARY ATHEROSCLEROSIS OF [place] CORON 03/19/2014 ARNEL REZA MD Ot 414. 8 CHR ISCHEMIC HRT DIS NEC 03/19/2014 ARNEL REZA MD Ot 415. 19 OTH PULMON EMBOLISM/INFARCT 03/19/2014 ARNEL REZA MD Ot 453. 40 ACUTE VENOUS EMBOLISM THROMBOSIS UNSP 03/19/2014 ARNEL REZA MD Ot 596. 54 NEUROGENIC BLADDER, NOT OTHERWISE SPECIF 03/19/2014 ARNEL REZA MD Ot 600. 01 HYPERTROPHY (BENIGN) OF PROSTATE W URINA 03/19/2014 ARNEL REZA MD Ot 788. 20 RETENTION OF URINE NOS 03/19/2014 ARNEL REZA MD Ot V04. 81 ND FOR PROPHYLACTIC VACCIN AND INOCULATI 03/19/2014 ARNEL REZA MD Ot V15. 81 HX OF PAST NONCOMPLIANCE 03/19/2014 ARNEL REZA MD Ot 414. 01 03/19/2014 LIBIA CAMPOS, ARNEL Jenkins Ot 414. 8 03/19/2014 LIBIA CAMPOS, ARNEL Jenkins Ot 415. 19 03/19/2014 LIBIA CAMPOS, ARNEL Jenkins Ot 453. 40 03/19/2014 LIBIA CAMPOS, ARNEL Jenkins Ot 596. 54 03/19/2014 LIBIA CAMPOS, ARNEL Jenkins Ot 600. 01 03/19/2014 LIBIA CAMPOS, ARNEL Jenkins Ot 788. 20 03/19/2014 LIBIA CAMPOS, ARNEL Jenkins Ot V15. 81 04/11/2014 ROSE MARIE CAMPOS, BASHAR J Ot 414. 00 04/11/2014 ROSE MARIE CAMPOS, BASHAR J Ot 425. 4 04/11/2014 ROSE MARIE CAMPOS, BASHAR J Ot 426. 3 04/11/2014 ROSE MARIE CAMPOS, BASHAR J Ot 453. 40 04/23/2014 ROSE MARIE CAMPOS, BASHAR J Ot 414. 00 04/23/2014 ROSE MARIE CAMPOS, BASHAR J Ot 425. 4 04/23/2014 ROSE MARIE CAMPOS, BASHAR J Ot 426. 3 04/23/2014 ROSE MARIE CAMPOS, BASHAR J Ot 453. 40 05/05/2014 Ot 599.70 HEM ATURIA, UNSPECIFIED 09/18/2014 ROSE MARIE CAMPOS, BASHAR J Ot 414. 00 09/18/2014 ROSE MARIE CAMPOS, BASHAR J Ot 425. 4 09/18/2014 ROSE MARIE CAMPOS, BASHAR J Ot 426. 3 09/18/2014 ROSE MARIE CAMPOS, BASHAR J Ot 453. 40 09/18/2014 LIBIA CAMPOS, ARNEL Jenkins Ot 272. 4 HYPERLIPIDEMIA NEC/NOS 09/18/2014 LIBIA CAMPOS, ARNEL Jenkins Ot 305. 02 ALCOHOL ABUSE-EPISODIC 09/18/2014 ARNEL REZA MD Ot 401. 9 HYPERTENSION NOS 09/18/2014 ARNEL REZA MD Ot 596. 54 NEUROGENIC BLADDER, NOT OTHERWISE SPECIF 09/18/2014 ARNEL REZA MD Ot 780. 2 SYNCOPE AND COLLAPSE 09/18/2014 ARNEL REZA MD Ot 791. 9 ABN URINE FINDINGS NEC 09/18/2014 ARNEL REZA MD Ot V12. 51 HX-VENOUS THROMBOSIS EMBOLISM 09/18/2014 ARNEL REZA MD Ot V12. 55 PERSONAL HISTORY OF PULMONARY EMBOLISM 12/18/2014 ROSEMARY CAMPOS, PIEDAD Waller Ot N13.9 OBSTRUCTIVE AND REFLUX UROPATHY, UNSPECI 12/18/2014 ROSEMARY CAMPOS, PIEDAD Waller Ot N39.0 URINARY TRACT INFECTION, SITE NOT SPECIF 12/18/2014 ROSEMARY CAMPOS, PIEDAD Waller Ot R31.9 HEMATURIA, UNSPECIFIED 12/18/2014 ROSEMARY CAMPOS, PIEDAD Waller Ot Z79.82 INVESTMENT MANAGER (CURRENT) USE OF ASPIRIN 12/18/2014 ROSEMARY CAMPOS, PIEDAD Waller Ot Z79.899 OTHER INVESTMENT MANAGER (CURRENT) DRUG THERAPY 06/03/2015 WARD EPSTEIN DEBBIE Ot E78.5 HYPERLIPIDEMIA, UNSPECIFIED 06/03/2015 WARD EPSTEIN DEBBIE Ot I10 ESSENTIAL (PRIMARY) HYPERTENSION 06/03/2015 WARD EPSTEIN DEBBIE Ot I25.11 0 ATHSCL HEART DISEASE OF [place] COR ART W 06/03/2015 WARD EPSTEIN DEBBIE Ot I44.7 LEFT BUNDLE-BRANCH BLOCK, UNSPECIFIED 06/03/2015 WARD EPSTEIN DEBBIE Ot 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 SYSTOLIC (CONGESTIVE) HEART FAIL 06/03/2015 WARD EPSTEIN DEBBIE Ot I70.0 ATHEROSCLEROSIS OF [place] 06/03/2015 WARD EPSTEIN DEBBIE Ot I82.40 2 ACUTE EMBOLISM AND THOMBOS UNSP DEEP VEI 06/03/2015 WARD EPSTEIN DEBBIE Ot 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 06/03/2015 WARD EPSTEIN DEBBIE Ot N13.9 OBSTRUCTIVE AND REFLUX UROPATHY, UNSPECI 06/03/2015 WARD EPSTEIN DEBBIE Ot Z79.01 INVESTMENT MANAGER (CURRENT) USE OF ANTICOAGULANT 06/03/2015 WARD EPSTEIN DEBBIE Ot Z79.89 9 OTHER INVESTMENT MANAGER (CURRENT) DRUG THERAPY 06/10/2015 WARD EPSTEIN DEBBIE Ot E78.5 06/10/2015 WARD EPSTEIN DEBBIE Ot I10 06/10/2015 WARD EPSTEIN DEBBIE Ot I25.11 0 06/10/2015 WARD EPSTEIN DEBBIE Ot I44.7 06/10/2015 WARD EPSTEIN DEBBIE Ot I50.22 06/10/2015 WARD EPSTEIN DEBBIE Ot I70.0 06/10/2015 WARD EPSTEIN DEBBIE Ot I82.40 2 06/10/2015 WARD EPSTEIN DEBBIE Ot I82.91 06/10/2015 HOPPER DO, DEBBIE Ot N13.9 06/10/2015 WARD EPSTEIN, DEBBIE Ot Z79.01 06/10/2015 WARD EPSTEIN DEBBIE Ot Z79.89 9 07/27/2015 PIEDAD RILEY MD Ot F17.210 NICOTINE DEPENDENCE, CIGARETTES, UNCOMPL 07/27/2015 PIEDAD RILEY MD Ot N39.0 URINARY TRACT INFECTION, SITE NOT SPECIF 07/27/2015 PIEDAD RILEY MD Ot N40.1 ENLARGED PROSTATE WITH LOWER URINARY TRA 07/27/2015 PIEDAD RILEY MD Ot T83.098A [facility] COMPL OF OTH INDWELLING URETHRAL CA 07/29/2015 PIEDAD RILEY MD Ot F17.210 NICOTINE DEPENDENCE, CIGARETTES, UNCOMPL 07/29/2015 PIEDAD RILEY MD Ot N39.0 URINARY TRACT INFECTION, SITE NOT SPECIF 07/29/2015 PIEDAD RILEY MD Ot N40.1 ENLARGED PROSTATE WITH LOWER URINARY TRA 07/29/2015 PIEDAD RILEY MD Ot T83.098A [facility] COMPL OF OTH INDWELLING URETHRAL CA 07/30/2015 PIEDAD RILEY MD Ot F17.210 NICOTINE DEPENDENCE, CIGARETTES, UNCOMPL 07/30/2015 PIEDAD RILEY MD Ot N39.0 URINARY TRACT INFECTION, SITE NOT SPECIF 07/30/2015 PIEDAD RILEY MD Ot N40.1 ENLARGED PROSTATE WITH LOWER URINARY TRA 07/30/2015 PIEDAD RILEY MD Ot T83.098A [facility] COMPL OF OTH INDWELLING URETHRAL CA 08/02/2015 PIEDAD RILEY MD Ot F17.210 NICOTINE DEPENDENCE, CIGARETTES, UNCOMPL 08/02/2015 PIEDAD RILEY MD Ot N39.0 URINARY TRACT INFECTION, SITE NOT SPECIF 08/02/2015 PIEDAD RILEY MD Ot N40.1 ENLARGED PROSTATE WITH LOWER URINARY TRA 08/02/2015 PIEDAD RILEY MD Ot T83.098A [facility] COMPL OF OTH INDWELLING URETHRAL CA 09/03/2015 DEBBIE HOPPER DO Ot E78.5 HYPERLIPIDEMIA, UNSPECIFIED 09/03/2015 DEBBIE HOPPER DO Ot I10 ESSENTIAL (PRIMARY) HYPERTENSION 09/03/2015 DEBBIE HPOPER DO Ot I25.11 0 ATHSCL HEART DISEASE OF [place] COR ART W 09/03/2015 DEBBIE HOPPER DO Ot I44.7 LEFT BUNDLE-BRANCH BLOCK, UNSPECIFIED 09/03/2015 SILAS HOPPER DOI Ot 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 SYSTOLIC (CONGESTIVE) HEART FAIL 09/03/2015 DEBBIE HOPPER DO Ot I70.0 ATHEROSCLEROSIS OF [place] 09/03/2015 DEBBIE HOPPER DO Ot I82.40 2 ACUTE EMBOLISM AND THOMBOS UNSP DEEP VEI 09/03/2015 DEBBIE HOPPER DO Ot 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 09/03/2015 DEBBIE HOPPER DO Ot N13.9 OBSTRUCTIVE AND REFLUX UROPATHY, UNSPECI 09/03/2015 DEBBIE HOPPER DO Ot Z79.01 CORRECTION (CURRENT) USE OF ANTICOAGULANT 09/03/2015 DEBBIE HOPPER DO Ot Z79.89 9 OTHER CORRECTION (CURRENT) DRUG THERAPY 10/24/2015 MARKIE FREIRE MD Ot N40.1 ENLARGED PROSTATE WITH LOWER URINARY TRA 10/24/2015 MARKIE FREIRE MD Ot T83.098A [facility] COMPL OF OTH INDWELLING URETHRAL CA 03/12/2016 ERWIN DALLAS MD Ot I10 ESSENTIAL (PRIMARY) HYPERTENSION 03/12/2016 ERWIN DALLAS MD Ot I25.10 ATHSCL HEART DISEASE OF [place] CORONARY 03/12/2016 ERWIN DALLAS MD, Ot J40 BRONCHITIS, NOT SPECIFIED ACUTE OR CH 03/12/2016 ERWIN DALLAS MD Ot R05 COUGH 03/12/2016 ERWIN DALLAS MD Ot Z79.82 CORRECTION (CURRENT) USE OF ASPIRIN 03/12/2016 ERWIN DALLAS MD, Ot Z79.899 OTHER INVESTMENT MANAGER (CURRENT) DRUG THERAPY 03/12/2016 ERWIN DALLAS MD, Ot Z86.718 PERSONAL HISTORY OF OTHER VENOUS THROMBO 03/12/2016 GABRIELLE TROTTER MD Ot 414. 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 3 LEFT BB BLOCK NEC 03/12/2016 GABRIELLE TROTTER MD Ot 453. 40 ACUTE VENOUS EMBOLISM THROMBOSIS UNSP 03/15/2016 ERWIN DALLAS MD, Ot I10 ESSENTIAL (PRIMARY) HYPERTENSION 03/15/2016 ERWIN DALLAS MD, Ot I25.10 ATHSCL HEART DISEASE OF [place] CORONARY 03/15/2016 ERWIN DALLAS MD, Ot J40 BRONCHITIS, NOT SPECIFIED ACUTE OR CH 03/15/2016 ERWIN DALLAS MD Ot R05 COUGH 03/15/2016 ERWIN DALLAS MD, Ot Z79.82 INVESTMENT MANAGER (CURRENT) USE OF ASPIRIN 03/15/2016 ERWIN DALLAS MD, Ot Z79.899 OTHER CORRECTION (CURRENT) DRUG THERAPY 03/15/2016 ERWIN DALLAS MD, Ot Z86.718 PERSONAL HISTORY OF OTHER VENOUS THROMBO 07/09/2016 ARNEL REZA MD Ot E78. 5 HYPERLIPIDEMIA, UNSPECIFIED 07/09/2016 ARNEL REZA MD, Ot I10 ESSENTIAL (PRIMARY) HYPERTENSION 07/09/2016 ARNEL REZA MD, Ot I25. 10 ATHSCL HEART DISEASE OF [place] CORONARY 07/09/2016 ARNEL REZA MD Ot I26. 99 OTHER PULMONARY EMBOLISM WITHOUT ACUTE C 07/09/2016 ARNEL REZA MD, Ot I44. 7 LEFT BUNDLE-BRANCH BLOCK, UNSPECIFIED 07/09/2016 ARNEL REZA MD Ot I50. 22 CHRONIC SYSTOLIC (CONGESTIVE) HEART FAIL 07/09/2016 ARNEL REZA MD Ot I82.413 ACUTE EMBOLISM AND THROMBOSIS OF [place] 07/09/2016 ARNEL REZA MD Ot I82.433 ACUTE EMBOLISM AND THROMBOSIS OF [place] 07/09/2016 ARNEL REZA MD Ot N39. 0 URINARY TRACT INFECTION, SITE NOT SPECIF 07/09/2016 ARNEL REZA MD, Ot N40. 1 BENIGN PROSTATIC HYPERPLASIA WITH LOWER 07/09/2016 ARNEL REZA MD Ot Z79. 01 CORRECTION (CURRENT) USE OF ANTICOAGULANT 07/09/2016 ARNEL REZA MD Ot Z91. 14 PATIENT'S OTHER NONCOMPLIANCE WITH MEDIC 07/09/2016 ARNEL REZA MD, Ot Z91. 19 PATIENT'S NONCOMPLIANCE W [facility] 09/10/2016 WARD EPSTEIN DEBBIE Ot R06.02 SHORTNESS OF BREATH 09/11/2016 WARD DO DEBBIE Ot D64.9 ANEMIA, UNSPECIFIED 09/11/2016 HOPPER DO DEBBIE Ot E78.00 PURE HYPERCHOLESTEROLEMIA, UNSPECIFIED 09/11/2016 HOPPER DO DEBBIE Ot I10 ESSENTIAL (PRIMARY) HYPERTENSION 09/11/2016 WARD DO DEBBIE Ot I21.4 NON-ST ELEVATION (NSTEMI) MYOCARDIAL INF 09/11/2016 WARD EPSTEIN DEBBIE Ot I25.10 ATHSCL HEART DISEASE OF [place] CORONARY 09/11/2016 WARD EPSTEIN DEBBIE Ot I87.2 VENOUS INSUFFICIENCY (CHRONIC) (PERIPHER 09/11/2016 WARD EPSTEIN DEBBIE Ot N31.9 NEUROMUSCULAR DYSFUNCTION OF BLADDER, UN 09/11/2016 WARD EPSTEIN DEBBIE Ot R01.1 CARDIAC MURMUR, UNSPECIFIED 09/11/2016 WARD EPSTEIN DEBBIE Ot Z79.01 CORRECTION (CURRENT) USE OF ANTICOAGULANT 09/11/2016 WARD EPSTEIN DEBBIE Ot Z86.71 1 PERSONAL HISTORY OF PULMONARY EMBOLISM 09/11/2016 SILAS HOPPER DOI Ot Z86.71 8 PERSONAL HISTORY OF OTHER VENOUS THROMBO 09/11/2016 SILAS HOPPER DOI Ot Z95.0 PRESENCE OF CARDIAC PACEMAKER 09/11/2016 SILAS HOPPER DOI Ot Z95.1 PRESENCE OF AORTOCORONARY BYPASS GRAFT 09/12/2016 SILAS HOPPER DOI Ot D64.9 ANEMIA, UNSPECIFIED 09/12/2016 WARD EPSTEIN DEBBIE Ot E78.00 PURE HYPERCHOLESTEROLEMIA, UNSPECIFIED 09/12/2016 WARD EPSTEIN DEBBIE Ot I10 ESSENTIAL (PRIMARY) HYPERTENSION 09/12/2016 WARD EPSTEIN DEBBIE Ot I21.4 NON-ST ELEVATION (NSTEMI) MYOCARDIAL INF 09/12/2016 WARD EPSTEIN DEBBIE Ot I25.10 ATHSCL HEART DISEASE OF [place] CORONARY 09/12/2016 WARD EPSTEIN DEBBIE Ot I87.2 VENOUS INSUFFICIENCY (CHRONIC) (PERIPHER 09/12/2016 WARD EPSTEIN DEBBIE Ot N31.9 NEUROMUSCULAR DYSFUNCTION OF BLADDER, UN 09/12/2016 WARD EPSTEIN DEBBIE Ot R01.1 CARDIAC MURMUR, UNSPECIFIED 09/12/2016 WARD EPSTEIN DEBBIE Ot Z79.01 CORRECTION (CURRENT) USE OF ANTICOAGULANT 09/12/2016 DEBBIE HOPPER DO Ot Z86.71 1 PERSONAL HISTORY OF PULMONARY EMBOLISM 09/12/2016 DEBBIE HOPPER DO Ot Z86.71 8 PERSONAL HISTORY OF OTHER VENOUS THROMBO 09/12/2016 WARD EPSTEIN DEBBIE Ot Z95.0 PRESENCE OF CARDIAC PACEMAKER 09/12/2016 DEBBIE HOPPER DO Ot Z95.1 PRESENCE OF AORTOCORONARY BYPASS GRAFT 09/12/2016 DEBBIE HOPPER DO Ot D64.9 ANEMIA, UNSPECIFIED 09/12/2016 WARD EPSTEIN DEBBIE Ot E78.00 PURE HYPERCHOLESTEROLEMIA, UNSPECIFIED 09/12/2016 WARD EPSTEIN DEBBIE Ot I10 ESSENTIAL (PRIMARY) HYPERTENSION 09/12/2016 DEBBIE HOPPER DO Ot I21.4 NON-ST ELEVATION (NSTEMI) MYOCARDIAL INF 09/12/2016 SILAS HOPPER DOI Ot I25.10 ATHSCL HEART DISEASE OF [place] CORONARY 09/12/2016 SILAS HOPPER DOI Ot I25.11 0 ATHSCL HEART DISEASE OF [place] COR ART W 09/12/2016 WARD EPSTEIN DEBBIE Ot 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 09/12/2016 DEBBIE HOPPER DO Ot I87.2 VENOUS INSUFFICIENCY (CHRONIC) (PERIPHER 09/12/2016 DEBBIE HOPPER DO Ot N31.9 NEUROMUSCULAR DYSFUNCTION OF BLADDER, UN 09/12/2016 DEBBIE HOPPER DO Ot R01.1 CARDIAC MURMUR, UNSPECIFIED 09/12/2016 DEBBIE HOPPER DO Ot Z79.01 CORRECTION (CURRENT) USE OF ANTICOAGULANT 09/12/2016 DEBBIE HOPPER DO Ot Z86.71 1 PERSONAL HISTORY OF PULMONARY EMBOLISM 09/12/2016 DEBBIE HOPPER DO Ot Z86.71 8 PERSONAL HISTORY OF OTHER VENOUS THROMBO 09/12/2016 DEBBIE HOPPER DO Ot Z95.0 PRESENCE OF CARDIAC PACEMAKER 09/12/2016 DEBBIE HOPPER DO Ot Z95.1 PRESENCE OF AORTOCORONARY BYPASS GRAFT 09/16/2016 MARKIE FREIRE MD Ot E78.00 PURE HYPERCHOLESTEROLEMIA, UNSPECIFIED 09/16/2016 MARKIE FREIRE MD Ot I10 ESSENTIAL (PRIMARY) HYPERTENSION 09/16/2016 MARKIE FREIRE MD Ot I25.10 ATHSCL HEART DISEASE OF [place] CORONARY 09/16/2016 MARKIE FREIRE MD Ot R30.0 DYSURIA 09/16/2016 MARKIE FREIRE MD Ot R33.9 RETENTION OF URINE, UNSPECIFIED 09/16/2016 MARKIE FREIRE MD Ot Z46.6 ENCOUNTER FOR FITTING AND ADJUSTMENT OF 09/16/2016 MARKIE FREIRE MD Ot Z79.01 CORRECTION (CURRENT) USE OF ANTICOAGULANT 09/16/2016 MARKIE FREIRE MD Ot Z79.82 INVESTMENT MANAGER (CURRENT) USE OF ASPIRIN 09/16/2016 MARKIE FREIRE MD Ot Z86.711 PERSONAL HISTORY OF PULMONARY EMBOLISM 09/16/2016 MARKIE FREIRE MD, Ot Z86.718 PERSONAL HISTORY OF OTHER VENOUS THROMBO 09/16/2016 MARKIE FREIRE MD Ot Z87.81 PERSONAL HISTORY OF (HEALED) TRAUMATIC F 09/16/2016 MARKIE FREIRE MD Ot Z95.0 PRESENCE OF CARDIAC PACEMAKER 09/16/2016 MARKIE FREIRE MD Ot Z95.1 PRESENCE OF AORTOCORONARY BYPASS GRAFT 09/20/2016 MARKIE FREIRE MD Ot E78.00 PURE HYPERCHOLESTEROLEMIA, UNSPECIFIED 09/20/2016 MARKIE FREIRE MD Ot I10 ESSENTIAL (PRIMARY) HYPERTENSION 09/20/2016 MARKIE FREIRE MD Ot I25.10 ATHSCL HEART DISEASE OF [place] CORONARY 09/20/2016 MARKIE FREIRE MD Ot R30.0 DYSURIA 09/20/2016 MARKIE FREIRE MD Ot R33.9 RETENTION OF URINE, UNSPECIFIED 09/20/2016 MARKIE FREIRE MD Ot Z46.6 ENCOUNTER FOR FITTING AND ADJUSTMENT OF 09/20/2016 MARKIE FREIRE MD Ot Z79.01 INVESTMENT MANAGER (CURRENT) USE OF ANTICOAGULANT 09/20/2016 MARKIE FREIRE MD Ot Z79.82 CORRECTION (CURRENT) USE OF ASPIRIN 09/20/2016 MARKIE FREIRE MD Ot Z86.711 PERSONAL HISTORY OF PULMONARY EMBOLISM 09/20/2016 MARKIE FREIRE MD Ot Z86.718 PERSONAL HISTORY OF OTHER VENOUS THROMBO 09/20/2016 MARKIE FREIRE MD, Ot Z87.81 PERSONAL HISTORY OF (HEALED) TRAUMATIC F 09/20/2016 MARKIE FREIRE MD, Ot Z95.0 PRESENCE OF CARDIAC PACEMAKER 09/20/2016 MARKIE FREIRE MD, Ot Z95.1 PRESENCE OF AORTOCORONARY BYPASS GRAFT 12/25/2016 ARNEL REZA MD Ot B96. 1 KLEBSIELLA PNEUMONIAE THE CAUSE OF DI 12/25/2016 ARNEL REZA MD Ot D64. 9 ANEMIA, UNSPECIFIED 12/25/2016 ARNEL REZA MD Ot E78. 00 PURE HYPERCHOLESTEROLEMIA, UNSPECIFIED 12/25/2016 ARNEL REZA MD Ot E86. 9 VOLUME DEPLETION, UNSPECIFIED 12/25/2016 ARNEL REZA MD Ot I08. 3 COMB RHEUMATIC DISORD OF MITRAL, AORTIC 12/25/2016 ARNEL REZA MD Ot I11. 0 HYPERTENSIVE HEART DISEASE WITH HEART FA 12/25/2016 ARNEL REZA MD Ot I25. 2 OLD MYOCARDIAL INFARCTION 12/25/2016 ARNEL REZA MD Ot I25. 5 ISCHEMIC CARDIOMYOPATHY 12/25/2016 ARNEL REZA MD Ot I25.810 ATHEROSCLEROSIS OF CABG W/O ANGINA PECTO 12/25/2016 ARNEL REZA MD Ot I50. 22 CHRONIC SYSTOLIC (CONGESTIVE) HEART FAIL 12/25/2016 ARNEL REZA MD Ot I95. 1 ORTHOSTATIC HYPOTENSION 12/25/2016 ARNEL REZA MD Ot N17. 9 ACUTE KIDNEY FAILURE, UNSPECIFIED 12/25/2016 ARNEL REZA MD Ot N31. 9 NEUROMUSCULAR DYSFUNCTION OF BLADDER, UN 12/25/2016 ARNEL REZA MD Ot N39. 0 URINARY TRACT INFECTION, SITE NOT SPECIF 12/25/2016 ARNEL REZA MD Ot N40. 1 BENIGN PROSTATIC HYPERPLASIA WITH LOWER 12/25/2016 ARNEL REZA MD Ot R00. 1 BRADYCARDIA, UNSPECIFIED 12/25/2016 ARNEL REZA MD Ot R00. 8 OTHER ABNORMALITIES OF HEART BEAT 12/25/2016 ARNEL REZA MD Ot R01. 1 CARDIAC MURMUR, UNSPECIFIED 12/25/2016 ARNEL REZA MD Ot R27. 0 ATAXIA, UNSPECIFIED 12/25/2016 ARNEL REZA MD Ot R33. 8 OTHER RETENTION OF URINE 12/25/2016 ARNEL REZA MD, Ot T83.511A I/I REACT D/T INDWELLING URETHRAL CATHET 12/25/2016 ARNEL REZA MD, Ot Z23 ENCOUNTER FOR IMMUNIZATION 12/25/2016 ARNEL REZA MD, Ot Z79. 01 INVESTMENT MANAGER (CURRENT) USE OF ANTICOAGULANT 12/25/2016 ARNEL REZA MD, Ot Z86.711 PERSONAL HISTORY OF PULMONARY EMBOLISM 12/25/2016 ARNEL REZA MD, Ot Z86.718 PERSONAL HISTORY OF OTHER VENOUS THROMBO 12/25/2016 ARNEL REZA MD, Ot Z91. 19 PATIENT'S NONCOMPLIANCE W [facility] TR 12/25/2016 ARNEL REZA MD, Ot Z95. 0 PRESENCE OF CARDIAC PACEMAKER 12/25/2016 ARNEL REZA MD, Ot Z95. 1 PRESENCE OF AORTOCORONARY BYPASS GRAFT 12/31/2016 ELAYNE SINGLETARY MD Ot E78.00 PURE HYPERCHOLESTEROLEMIA, UNSPECIFIED 12/31/2016 ELAYNE SINGLETARY MD Ot E86 .0 DEHYDRATION 12/31/2016 ELAYNE SINGLETARY MD Ot I11 .0 HYPERTENSIVE HEART DISEASE WITH HEART FA 12/31/2016 ELAYNE SINGLETARY MD Ot I25.10 ATHSCL HEART DISEASE OF [place] CORONARY 12/31/2016 ELAYNE SINGLETARY MD Ot I42 .9 CARDIOMYOPATHY, UNSPECIFIED 12/31/2016 ELAYNE SINGLETARY MD Ot I48.91 UNSPECIFIED ATRIAL FIBRILLATION 12/31/2016 ELAYNE SINGLETARY MD, Ot 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 SYSTOLIC (CONGESTIVE) HEART FAIL 12/31/2016 ELAYNE SINGLETARY MD Ot I95 .1 ORTHOSTATIC HYPOTENSION 12/31/2016 ELAYNE SINGLETARY MD Ot J69 .0 PNEUMONITIS DUE TO INHALATION OF FOOD AN 12/31/2016 ELAYNE SINGLETARY MD Ot N40 .1 BENIGN PROSTATIC HYPERPLASIA WITH LOWER 12/31/2016 ELAYNE SINGLETARY MD, Ot R01 .1 CARDIAC MURMUR, UNSPECIFIED 12/31/2016 ELAYNE SINGLETARY MD Ot R33 .8 OTHER RETENTION OF URINE 12/31/2016 ELAYNE SINGLETARY MD, Ot Z79.01 CORRECTION (CURRENT) USE OF ANTICOAGULANT 12/31/2016 ELAYNE SINGLETARY MD, Ot Z86.711 PERSONAL HISTORY OF PULMONARY EMBOLISM 12/31/2016 ELAYNE SINGLETARY MD, Ot Z86.718 PERSONAL HISTORY OF OTHER VENOUS THROMBO 12/31/2016 ELAYNE SINGLETARY MD, Ot Z91.19 PATIENT'S NONCOMPLIANCE W [facility] TR 12/31/2016 ELAYNE SINGLETARY MD, Ot Z95 .0 PRESENCE OF CARDIAC PACEMAKER 12/31/2016 ELAYNE SINGLETARY MD, Ot Z95 .1 PRESENCE OF AORTOCORONARY BYPASS GRAFT 12/31/2016 ELAYNE SINGLETARY MD, Ot Z95 .5 PRESENCE OF CORONARY ANGIOPLASTY IMPLANT 01/06/2017 DORYS PENA MD Ot D50 .9 IRON DEFICIENCY ANEMIA, UNSPECIFIED 01/06/2017 DORYS PENA MD Ot E78.00 PURE HYPERCHOLESTEROLEMIA, UNSPECIFIED 01/06/2017 DORYS PENA MD, Ot E86 .1 HYPOVOLEMIA 01/06/2017 DORYS PENA MD Ot I11 .0 HYPERTENSIVE HEART DISEASE WITH HEART FA 01/06/2017 DORYS PENA MD Ot I25.10 ATHSCL HEART DISEASE OF [place] CORONARY 01/06/2017 DORYS PENA MD Ot I42 .9 CARDIOMYOPATHY, UNSPECIFIED 01/06/2017 DORYS PENA MD Ot 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 SYSTOLIC (CONGESTIVE) HEART FAIL 01/06/2017 DORYS PENA MD Ot I95 .1 ORTHOSTATIC HYPOTENSION 01/06/2017 DORYS PENA MD Ot J69 .0 PNEUMONITIS DUE TO INHALATION OF FOOD AN 01/06/2017 DORYS PENA MD Ot N31 .9 NEUROMUSCULAR DYSFUNCTION OF BLADDER, UN 01/06/2017 DORYS PENA MD Ot N40 .1 BENIGN PROSTATIC HYPERPLASIA WITH LOWER 01/06/2017 DORYS PENA MD Ot R01 .1 CARDIAC MURMUR, UNSPECIFIED 01/06/2017 DORYS PENA MD Ot R06.03 ACUTE RESPIRATORY DISTRESS 01/06/2017 DORYS PENA MD Ot R09.02 HYPOXEMIA 01/06/2017 DORYS PENA MD Ot R19 .5 OTHER FECAL ABNORMALITIES 01/06/2017 DORYS PENA MD Ot R33 .8 OTHER RETENTION OF URINE 01/06/2017 DORYS PENA MD Ot R53.81 OTHER MALAISE 01/06/2017 DORYS PENA MD, Ot Z86.711 PERSONAL HISTORY OF PULMONARY EMBOLISM 01/06/2017 DORYS PENA MD, Ot Z86.718 PERSONAL HISTORY OF OTHER VENOUS THROMBO 01/06/2017 DORYS PENA MD, Ot Z87.891 PERSONAL HISTORY OF NICOTINE DEPENDENCE 01/06/2017 DORYS PENA MD Ot Z95 .0 PRESENCE OF CARDIAC PACEMAKER 01/06/2017 DORYS PENA MD Ot Z95 .1 PRESENCE OF AORTOCORONARY BYPASS GRAFT 01/06/2017 DORYS PENA MD, Ot Z95 .2 PRESENCE OF PROSTHETIC HEART VALVE 02/18/2017 ERWIN DALLAS MD Ot E78.00 PURE HYPERCHOLESTEROLEMIA, UNSPECIFIED 02/18/2017 ERWIN DALLAS MD Ot I10 ESSENTIAL (PRIMARY) HYPERTENSION 02/18/2017 ERWIN DALLAS MD Ot I24 .8 OTHER FORMS OF ACUTE ISCHEMIC HEART DISE 02/18/2017 ERWIN DALLAS MD, Ot I25.10 ATHSCL HEART DISEASE OF [place] CORONARY 02/18/2017 ERWIN DALLAS MD Ot I42 .9 CARDIOMYOPATHY, UNSPECIFIED 02/18/2017 ERWIN DALLAS MD, Ot I49 .3 VENTRICULAR PREMATURE DEPOLARIZATION 02/18/2017 ERWIN DALLAS MD Ot N40 .0 BENIGN PROSTATIC HYPERPLASIA WITHOUT LOW 02/18/2017 ERWIN DALLAS MD Ot R42 DIZZINESS AND GIDDINESS 02/18/2017 ERWIN DALLAS MD Ot Z77.22 CNTCT W AND EXPSR TO ENVIRON TOBACCO SMO 02/18/2017 ERWIN DALLAS MD Ot Z79.01 CORRECTION (CURRENT) USE OF ANTICOAGULANT 02/18/2017 ERWIN DALLAS MD, Ot Z79.82 CORRECTION (CURRENT) USE OF ASPIRIN 02/18/2017 ERWIN DALLAS MD, Ot Z80 .0 FAMILY HISTORY OF MALIGNANT NEOPLASM OF 02/18/2017 ERWIN DALLAS MD, Ot Z80.42 FAMILY HISTORY OF MALIGNANT NEOPLASM OF 02/18/2017 ERWIN DALLAS MD, Ot Z82.49 FAMILY HX OF ISCHEM HEART DIS AND OTH DI 02/18/2017 ERWIN DALLAS MD, Ot Z86.718 PERSONAL HISTORY OF OTHER VENOUS THROMBO 02/18/2017 ERWIN DALLAS MD Ot Z87.440 PERSONAL HISTORY OF URINARY (TRACT) INFE 02/18/2017 ERWIN DALLAS MD Ot Z95 .0 PRESENCE OF CARDIAC PACEMAKER 02/18/2017 ERWIN DALLAS MD Ot Z95 .1 PRESENCE OF AORTOCORONARY BYPASS GRAFT 05/18/2017 JIM PAGE DO Ot E78.5 HYPERLIPIDEMIA, UNSPECIFIED 05/18/2017 JIM PAGE DO Ot I13.0 HYP HRT CHR KDNY DIS W HRT FAIL AND ST 05/18/2017 SHERIJIM Dick DO Ot I25.10 ATHSCL HEART DISEASE OF [place] CORONARY 05/18/2017 JIM PAGE DO Ot I25.5 ISCHEMIC CARDIOMYOPATHY 05/18/2017 JIM PAGE DO Ot 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 SYSTOLIC (CONGESTIVE) HEART FAIL 05/18/2017 JIM PAGE DO Ot I95.1 ORTHOSTATIC HYPOTENSION 05/18/2017 JIM PAGE DO Ot N18.9 CHRONIC KIDNEY DISEASE, UNSPECIFIED 05/18/2017 [facility] Ot N31.9 NEUROMUSCULAR DYSFUNCTION OF BLADDER, UN 05/18/2017 JIM PAGE DO Ot N39.0 URINARY TRACT INFECTION, SITE NOT SPECIF 05/18/2017 JIM PAGE DO Ot N40.1 BENIGN PROSTATIC HYPERPLASIA WITH LOWER 05/18/2017 JIM PAGE DO Ot R07.9 CHEST PAIN, UNSPECIFIED 05/18/2017 JIM PAGE DO Ot R31.9 HEMATURIA, UNSPECIFIED 05/18/2017 [facility] Ot R33.8 OTHER RETENTION OF URINE 05/18/2017 JIM PAGE DO Ot T83.511A I/I REACT D/T INDWELLING URETHRAL CATHET 05/18/2017 JIM PAGE DO Ot Z79.01 CORRECTION (CURRENT) USE OF ANTICOAGULANT 05/18/2017 JIM PAGE DO Ot Z79.82 INVESTMENT MANAGER (CURRENT) USE OF ASPIRIN 05/18/2017 [facility], Ot Z79.899 OTHER INVESTMENT MANAGER (CURRENT) DRUG THERAPY 05/18/2017 SHERIJIM Dick DO Ot Z86.711 PERSONAL HISTORY OF PULMONARY EMBOLISM 05/18/2017 [facility] JIM EPSTEIN Ot Z86.718 PERSONAL HISTORY OF OTHER VENOUS THROMBO 05/18/[facility] Ot Z95.0 PRESENCE OF CARDIAC PACEMAKER 05/18/2017 [facility] Ot Z95.1 PRESENCE OF AORTOCORONARY BYPASS GRAFT 05/20/2017 [facility] JIM EPSTEIN Ot E78.5 HYPERLIPIDEMIA, UNSPECIFIED 05/20/2017 [facility] [facility] JIM EPSTEIN Ot I13.0 HYP HRT CHR KDNY DIS W HRT FAIL AND ST [facility] ATHSCL HEART DISEASE [place] [facility]ARY [facility] I25.5 ISCHEMIC CARDIOMYOPATHY 05/20/2017 [facility] JIM EPSTEIN Ot 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 SYSTOLIC (CONGESTIVE) HEART FAIL 05/20/2017 [facility] JIM EPSTEIN Ot I95.1 ORTHOSTATIC HYPOTENSION 05/20/2017 JIM PAGE DO Ot N18.9 CHRONIC KIDNEY DISEASE, UNSPECIFIED 05/20/2017 [facility]IM EPSTEIN Ot N31.9 NEUROMUSCULAR DYSFUNCTION OF BLADDER, UN 05/20/2017 SHERIJIM Dick DO Ot N39.0 URINARY TRACT INFECTION, SITE NOT SPECIF 05/20/2017 [facility] JIM EPSTEIN Ot N40.1 BENIGN PROSTATIC HYPERPLASIA WITH LOWER 05/20/2017 [facility] JIM EPSTEIN Ot R07.9 CHEST PAIN, UNSPECIFIED 05/20/2017 SHERIJIM Dick DO Ot R31.9 HEMATURIA, UNSPECIFIED 05/20/2017 [facility] JIM EPSTEIN Ot R33.8 OTHER RETENTION OF URINE 05/20/2017 SHERIJIM Dick DO Ot T83.511A I/I REACT D/T INDWELLING URETHRAL CATHET 05/20/2017 BARNIJIM MORLEY DO, Ot Z79.01 INVESTMENT MANAGER (CURRENT) USE OF ANTICOAGULANT 05/20/2017 JIM PAGE DO Ot Z79.82 CORRECTION (CURRENT) USE OF ASPIRIN 05/20/2017 [facility] JIM EPSTEIN Ot Z79.899 OTHER INVESTMENT MANAGER (CURRENT) DRUG THERAPY 05/20/2017 JIM PAGE DO Ot Z86.711 PERSONAL HISTORY OF PULMONARY EMBOLISM 05/20/2017 JIM PAGE DO Ot Z86.718 PERSONAL HISTORY OF OTHER VENOUS THROMBO 05/20/2017 JIM PAGE DO Ot Z95.0 PRESENCE OF CARDIAC PACEMAKER 05/20/2017 JIM PAGE DO Ot Z95.1 PRESENCE OF AORTOCORONARY BYPASS GRAFT 05/20/2017 JIM PAGE DO Ot E78.5 HYPERLIPIDEMIA, UNSPECIFIED 05/20/2017 JIM PAGE DO Ot I13.0 HYP HRT CHR KDNY DIS W HRT FAIL AND ST 05/20/2017 JIM PAGE DO Ot I25.10 ATHSCL HEART DISEASE OF [place] CORONARY 05/20/2017 JIM PAGE DO Ot I25.5 ISCHEMIC CARDIOMYOPATHY 05/20/2017 JIM PAGE DO Ot 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 SYSTOLIC (CONGESTIVE) HEART FAIL 05/20/2017 JIM PAGE DO Ot I95.1 ORTHOSTATIC HYPOTENSION 05/20/2017 JIM PAGE DO Ot N18.9 CHRONIC KIDNEY DISEASE, UNSPECIFIED 05/20/2017 JIM PAGE DO Ot N31.9 NEUROMUSCULAR DYSFUNCTION OF BLADDER, UN 05/20/2017 JIM PAGE DO Ot N39.0 URINARY TRACT INFECTION, SITE NOT SPECIF 05/20/2017 JIM PAGE DO Ot N40.1 BENIGN PROSTATIC HYPERPLASIA WITH LOWER 05/20/2017 JIM PAGE DO Ot R07.9 CHEST PAIN, UNSPECIFIED 05/20/2017 JIM PAGE DO Ot R31.9 HEMATURIA, UNSPECIFIED 05/20/2017 JIM PAGE DO Ot R33.8 OTHER RETENTION OF URINE 05/20/2017 JIM PAGE DO Ot T83.511A I/I REACT D/T INDWELLING URETHRAL CATHET 05/20/2017 JIM PAGE DO Ot Z79.01 INVESTMENT MANAGER (CURRENT) USE OF ANTICOAGULANT 05/20/2017 [facility] EP[facility] JIM Mayelin Ot Z79.82 CORRECTION (CURRENT) USE OF ASPIRIN 05/20/2017 [facility] JIM Mayelin Ot Z79.899 OTHER INVESTMENT MANAGER (CURRENT) DRUG THERAPY 05/20/2017 [facility] JIM Mayelin Ot Z86.711 PERSONAL HISTORY OF PULMONARY EMBOLISM 05/20/2017 [facility] E Ot Z86.718 PERSONAL HISTORY OF OTHER VENOUS THROMBO 05/20/2017 [facility] JIM E Ot Z95.0 PRESENCE OF CARDIAC PACEMAKER 05/20/2017 [facility] EPSTEIN JIM E Ot Z95.1 PRESENCE OF AORTOCORONARY BYPASS GRAFT 07/28/2017 DEBBIE HOPPER DO Ot D64.9 ANEMIA, UNSPECIFIED 07/28/2017 SILAS HOPPER DOI Ot E78.00 PURE HYPERCHOLESTEROLEMIA, UNSPECIFIED 07/28/2017 DEBBIE HOPPER DO Ot I12.9 HYPERTENSIVE CHRONIC KIDNEY DISEASE W ST 07/28/2017 DEBBIE HOPPER DO Ot I25.10 ATHSCL HEART DISEASE OF [place] CORONARY 07/28/2017 SILAS HOPPER DOI Ot I48.91 UNSPECIFIED ATRIAL FIBRILLATION 07/28/2017 DEBBIE HOPPER DO Ot I95.0 IDIOPATHIC HYPOTENSION 07/28/2017 SILAS HOPPER DOI Ot K21.0 GASTRO-ESOPHAGEAL REFLUX DISEASE WITH ES 07/28/2017 DEBBIE HOPPER DO Ot K25.9 GASTRIC ULCER, UNSP ACUTE OR CHRONIC, 07/28/2017 DEBBIE HOPPER DO Ot K29.70 GASTRITIS, UNSPECIFIED, WITHOUT BLEEDING 07/28/2017 DEBBIE HOPPER DO Ot K44.9 DIAPHRAGMATIC HERNIA WITHOUT OBSTRUCTION 07/28/2017 DEBBIE HOPPER DO Ot K57.30 DVRTCLOS OF LG INT W/O PERFORATION OR AB 07/28/2017 DEBBIE HOPPER DO Ot K62.4 STENOSIS OF ANUS AND RECTUM 07/28/2017 HOPPER DO, DEBBIE Ot N18.9 CHRONIC KIDNEY DISEASE, UNSPECIFIED 07/28/2017 WARD EPSTEIN, DEBBIE Ot N31.9 NEUROMUSCULAR DYSFUNCTION OF BLADDER, UN 07/28/2017 HOPPER DO DEBBIE Ot N39.0 URINARY TRACT INFECTION, SITE NOT SPECIF 07/28/2017 WARD EPSTEIN DEBBIE Ot N40.0 BENIGN PROSTATIC HYPERPLASIA WITHOUT LOW 07/28/2017 WARD EPSTEIN DEBBIE Ot R55 SYNCOPE AND COLLAPSE 07/28/2017 WARD EPSTEIN DEBBIE Ot Z86.71 1 PERSONAL HISTORY OF PULMONARY EMBOLISM 07/28/2017 WARD EPSTEIN DEBBIE Ot Z86.71 8 PERSONAL HISTORY OF OTHER VENOUS THROMBO 07/28/2017 WARD EPSTEIN DEBBIE Ot Z95.0 PRESENCE OF CARDIAC PACEMAKER 07/28/2017 WARD EPSTEIN DEBBIE Ot Z95.1 PRESENCE OF AORTOCORONARY BYPASS GRAFT 07/28/2017 WARD EPSTEIN DEBBIE Ot D64.9 ANEMIA, UNSPECIFIED 07/28/2017 WARD DO DEBBIE Ot E78.00 PURE HYPERCHOLESTEROLEMIA, UNSPECIFIED 07/28/2017 WARD DO, DEBBIE Ot I12.9 HYPERTENSIVE CHRONIC KIDNEY DISEASE W ST 07/28/2017 WARD DO, DEBBIE Ot I25.10 ATHSCL HEART DISEASE OF [place] CORONARY 07/28/2017 WARD DO, DEBBIE Ot I48.91 UNSPECIFIED ATRIAL FIBRILLATION 07/28/2017 WARD DO, DEBBIE Ot I95.0 IDIOPATHIC HYPOTENSION 07/28/2017 WARD DO, DEBBIE Ot K21.0 GASTRO-ESOPHAGEAL REFLUX DISEASE WITH ES 07/28/2017 WARD EPSTEIN, DEBBIE Ot K25.9 GASTRIC ULCER, UNSP ACUTE OR CHRONIC, 07/28/2017 HOPPER DO, DEBBIE Ot K29.70 GASTRITIS, UNSPECIFIED, WITHOUT BLEEDING 07/28/2017 WARD DO DEBBIE Ot K44.9 DIAPHRAGMATIC HERNIA WITHOUT OBSTRUCTION 07/28/2017 WARD DO DEBBIE Ot K57.30 DVRTCLOS OF LG INT W/O PERFORATION OR AB 07/28/2017 WARD DO DEBBIE Ot K62.4 STENOSIS OF ANUS AND RECTUM 07/28/2017 WARD DO DEBBIE Ot N18.9 CHRONIC KIDNEY DISEASE, UNSPECIFIED 07/28/2017 WARD DO DEBBIE Ot N31.9 NEUROMUSCULAR DYSFUNCTION OF BLADDER, UN 07/28/2017 HOPPER DO DEBBIE Ot N39.0 URINARY TRACT INFECTION, SITE NOT SPECIF 07/28/2017 WARD DO DEBBIE Ot N40.0 BENIGN PROSTATIC HYPERPLASIA WITHOUT LOW 07/28/2017 WARD DO DEBBIE Ot R55 SYNCOPE AND COLLAPSE 07/28/2017 WARD DO DEBBIE Ot Z86.71 1 PERSONAL HISTORY OF PULMONARY EMBOLISM 07/28/2017 WARD EPSTEIN DEBBIE Ot Z86.71 8 PERSONAL HISTORY OF OTHER VENOUS THROMBO 07/28/2017 WARD DO DEBBIE Ot Z95.0 PRESENCE OF CARDIAC PACEMAKER 07/28/2017 WARD DO DEBBIE Ot Z95.1 PRESENCE OF AORTOCORONARY BYPASS GRAFT 08/01/2017 WARD EPSTEIN DEBBIE Ot D64.9 ANEMIA, UNSPECIFIED 08/01/2017 WARD DO DEBBIE Ot E78.00 PURE HYPERCHOLESTEROLEMIA, UNSPECIFIED 08/01/2017 WARD DO DEBBIE Ot I12.9 HYPERTENSIVE CHRONIC KIDNEY DISEASE W ST 08/01/2017 WARD EPSTEIN DEBBIE Ot I25.10 ATHSCL HEART DISEASE OF [place] CORONARY 08/01/2017 WARD DO DEBBIE Ot I48.91 UNSPECIFIED ATRIAL FIBRILLATION 08/01/2017 WARD DO DEBBIE Ot I95.0 IDIOPATHIC HYPOTENSION 08/01/2017 WARD DO DEBBIE Ot K21.0 GASTRO-ESOPHAGEAL REFLUX DISEASE WITH ES 08/01/2017 WARD DO DEBBIE Ot K25.9 GASTRIC ULCER, UNSP ACUTE OR CHRONIC, 08/01/2017 WARD DO DEBBIE Ot K29.70 GASTRITIS, UNSPECIFIED, WITHOUT BLEEDING 08/01/2017 WARD EPSTEIN DEBBIE Ot K44.9 DIAPHRAGMATIC HERNIA WITHOUT OBSTRUCTION 08/01/2017 WARD EPSTEIN DEBBIE Ot K57.30 DVRTCLOS OF LG INT W/O PERFORATION OR AB 08/01/2017 WARD DO DEBBIE Ot K62.4 STENOSIS OF ANUS AND RECTUM 08/01/2017 WARD DO DEBBIE Ot N18.9 CHRONIC KIDNEY DISEASE, UNSPECIFIED 08/01/2017 WARD EPSTEIN DEBBIE Ot N31.9 NEUROMUSCULAR DYSFUNCTION OF BLADDER, UN 08/01/2017 WARD DO DEBBIE Ot N39.0 URINARY TRACT INFECTION, SITE NOT SPECIF 08/01/2017 WARD EPSTEIN DEBBIE Ot N40.0 BENIGN PROSTATIC HYPERPLASIA WITHOUT LOW 08/01/2017 WARD EPSTEIN DEBBIE Ot R55 SYNCOPE AND COLLAPSE 08/01/2017 WARD EPSTEIN DEBBIE Ot Z86.71 1 PERSONAL HISTORY OF PULMONARY EMBOLISM 08/01/2017 WARD EPSTEIN DEBBIE Ot Z86.71 8 PERSONAL HISTORY OF OTHER VENOUS THROMBO 08/01/2017 WARD EPSTEIN DEBBIE Ot Z95.0 PRESENCE OF CARDIAC PACEMAKER 08/01/2017 WARD EPSTEIN DEBBIE Ot Z95.1 PRESENCE OF AORTOCORONARY BYPASS GRAFT 08/01/2017 WARD EPSTEIN DEBBIE Ot D64.9 ANEMIA, UNSPECIFIED 08/01/2017 WARD EPSTEIN DEBBIE Ot E78.00 PURE HYPERCHOLESTEROLEMIA, UNSPECIFIED 08/01/2017 WARD EPSTEIN DEBBIE Ot I12.9 HYPERTENSIVE CHRONIC KIDNEY DISEASE W ST 08/01/2017 WARD EPSTEIN DEBBIE Ot I25.10 ATHSCL HEART DISEASE OF [place] CORONARY 08/01/2017 WARD EPSTEIN DEBBIE Ot I48.91 UNSPECIFIED ATRIAL FIBRILLATION 08/01/2017 WARD EPSTEIN DEBBIE Ot I95.0 IDIOPATHIC HYPOTENSION 08/01/2017 WARD EPSTEIN DEBBIE Ot K21.0 GASTRO-ESOPHAGEAL REFLUX DISEASE WITH ES 08/01/2017 WARD EPSTEIN DEBBIE Ot K25.9 GASTRIC ULCER, UNSP ACUTE OR CHRONIC, 08/01/2017 WARD EPSTEIN DEBBIE Ot K29.70 GASTRITIS, UNSPECIFIED, WITHOUT BLEEDING 08/01/2017 WARD EPSTEIN DEBBIE Ot K44.9 DIAPHRAGMATIC HERNIA WITHOUT OBSTRUCTION 08/01/2017 WARD EPSTEIN DEBBIE Ot K57.30 DVRTCLOS OF LG INT W/O PERFORATION OR AB 08/01/2017 WARD EPSTEIN DEBBIE Ot K62.4 STENOSIS OF ANUS AND RECTUM 08/01/2017 WARD EPSTEIN DEBBIE Ot N18.9 CHRONIC KIDNEY DISEASE, UNSPECIFIED 08/01/2017 WARD EPSTEIN DEBBIE Ot N31.9 NEUROMUSCULAR DYSFUNCTION OF BLADDER, UN 08/01/2017 WARD EPSTEIN DEBBIE Ot N39.0 URINARY TRACT INFECTION, SITE NOT SPECIF 08/01/2017 WARD EPSTEIN DEBBIE Ot N40.0 BENIGN PROSTATIC HYPERPLASIA WITHOUT LOW 08/01/2017 WARD EPSTEIN DEBBIE Ot R55 SYNCOPE AND COLLAPSE 08/01/2017 WARD EPSTEIN DEBBIE Ot Z86.71 1 PERSONAL HISTORY OF PULMONARY EMBOLISM 08/01/2017 WARD EPSTEIN DEBBIE Ot Z86.71 8 PERSONAL HISTORY OF OTHER VENOUS THROMBO 08/01/2017 HOPPER DO DEBBIE Ot Z95.0 PRESENCE OF CARDIAC PACEMAKER 08/01/2017 HOPPER DO DEBBIE Ot Z95.1 PRESENCE OF AORTOCORONARY BYPASS GRAFT 08/02/2017 WARD EPSTEIN DEBBIE Ot D64.9 ANEMIA, UNSPECIFIED 08/02/2017 HOPPER DO DEBBIE Ot E78.00 PURE HYPERCHOLESTEROLEMIA, UNSPECIFIED 08/02/2017 HOPPER DO DEBBIE Ot I12.9 HYPERTENSIVE CHRONIC KIDNEY DISEASE W ST 08/02/2017 WARD DO DEBBIE Ot I25.10 ATHSCL HEART DISEASE OF [place] CORONARY 08/02/2017 WARD DO DEBBIE Ot I48.91 UNSPECIFIED ATRIAL FIBRILLATION 08/02/2017 WARD DO DEBBIE Ot I95.0 IDIOPATHIC HYPOTENSION 08/02/2017 WARD DO DEBBIE Ot K21.0 GASTRO-ESOPHAGEAL REFLUX DISEASE WITH ES 08/02/2017 WARD EPSTEIN DEBBIE Ot K25.9 GASTRIC ULCER, UNSP ACUTE OR CHRONIC, 08/02/2017 WARD DO DEBBIE Ot K29.70 GASTRITIS, UNSPECIFIED, WITHOUT BLEEDING 08/02/2017 WARD EPSTEIN DEBBIE Ot K44.9 DIAPHRAGMATIC HERNIA WITHOUT OBSTRUCTION 08/02/2017 WARD DO DEBBIE Ot K57.30 DVRTCLOS OF LG INT W/O PERFORATION OR AB 08/02/2017 WARD DO DEBBIE Ot K62.4 STENOSIS OF ANUS AND RECTUM 08/02/2017 WARD EPSTEIN DEBBIE Ot N18.9 CHRONIC KIDNEY DISEASE, UNSPECIFIED 08/02/2017 WARD EPSTEIN DEBBIE Ot N31.9 NEUROMUSCULAR DYSFUNCTION OF BLADDER, UN 08/02/2017 WARD DO DEBBIE Ot N39.0 URINARY TRACT INFECTION, SITE NOT SPECIF 08/02/2017 WARD DO DEBBIE Ot N40.0 BENIGN PROSTATIC HYPERPLASIA WITHOUT LOW 08/02/2017 WARD DO DEBBIE Ot R55 SYNCOPE AND COLLAPSE 08/02/2017 WARD DO DEBBIE Ot Z86.71 1 PERSONAL HISTORY OF PULMONARY EMBOLISM 08/02/2017 WARD EPSTEIN DEBBIE Ot Z86.71 8 PERSONAL HISTORY OF OTHER VENOUS THROMBO 08/02/2017 DEBBIE HOPPER DO Ot Z95.0 PRESENCE OF CARDIAC PACEMAKER 08/02/2017 DEBBIE HOPPER DO Ot Z95.1 PRESENCE OF AORTOCORONARY BYPASS GRAFT 08/15/2017 PHANI VILLA APRN Ot E78.00 PURE HYPERCHOLESTEROLEMIA, UNSPECIFIED 08/15/2017 PHANI VILLA APRN Ot I10 ESSENTIAL (PRIMARY) HYPERTENSION 08/15/2017 PHANI VILLA APRN Ot I25.10 ATHSCL HEART DISEASE OF [place] CORONARY 08/15/2017 PHANI VILLA APRN Ot N39 .0 URINARY TRACT INFECTION, SITE NOT SPECIF 08/15/2017 PHANI VILLA APRN Ot N40 .0 BENIGN PROSTATIC HYPERPLASIA WITHOUT LOW 08/15/2017 PHANI VILLA APRN Ot R42 DIZZINESS AND GIDDINESS 08/15/2017 PHANI VILLA APRN Ot Z86.711 PERSONAL HISTORY OF PULMONARY EMBOLISM 08/15/2017 PHANI VILLA APRN Ot Z86.718 PERSONAL HISTORY OF OTHER VENOUS THROMBO 08/15/2017 PHANI VILLA APRN Ot Z87.81 PERSONAL HISTORY OF (HEALED) TRAUMATIC F 08/15/2017 PHANI VILLA APRN Ot Z88 .8 ALLERGY STATUS TO OTH DRUG/MEDS/BIOL SUB 08/15/2017 PHANI VILLA APRN Ot Z95 .0 PRESENCE OF CARDIAC PACEMAKER 08/15/2017 PHANI VILLA APRN Ot Z95 .5 PRESENCE OF CORONARY ANGIOPLASTY IMPLANT 08/16/2017 DEBBIE HOPPER DO Ot D64.9 ANEMIA, UNSPECIFIED 08/16/2017 DEBBIE HOPPER DO Ot E78.00 PURE HYPERCHOLESTEROLEMIA, UNSPECIFIED 08/16/2017 SILAS HOPPER DOI Ot I12.9 HYPERTENSIVE CHRONIC KIDNEY DISEASE W ST 08/16/2017 SILAS HOPPER DOI Ot I25.10 ATHSCL HEART DISEASE OF [place] CORONARY 08/16/2017 DEBBIE HOPPER DO Ot I48.91 UNSPECIFIED ATRIAL FIBRILLATION 08/16/2017 SILAS HOPPER DOI Ot I95.0 IDIOPATHIC HYPOTENSION 08/16/2017 DEBBIE HOPPER DO Ot K21.0 GASTRO-ESOPHAGEAL REFLUX DISEASE WITH ES 08/16/2017 DEBBIE HOPPER DO Ot K25.9 GASTRIC ULCER, UNSP ACUTE OR CHRONIC, 08/16/2017 HOPPER DO, DEBBIE Ot K29.70 GASTRITIS, UNSPECIFIED, WITHOUT BLEEDING 08/16/2017 HOPPER DO DEBBIE Ot K44.9 DIAPHRAGMATIC HERNIA WITHOUT OBSTRUCTION 08/16/2017 HOPPER DO DEBBIE Ot K57.30 DVRTCLOS OF LG INT W/O PERFORATION OR AB 08/16/2017 HOPPER DO DEBBIE Ot K62.4 STENOSIS OF ANUS AND RECTUM 08/16/2017 WARD EPSTEIN DEBBIE Ot N18.9 CHRONIC KIDNEY DISEASE, UNSPECIFIED 08/16/2017 WARD EPSTEIN DEBBIE Ot N31.9 NEUROMUSCULAR DYSFUNCTION OF BLADDER, UN 08/16/2017 HOPPER DO DEBBIE Ot N39.0 URINARY TRACT INFECTION, SITE NOT SPECIF 08/16/2017 WARD EPSTEIN DEBBIE Ot N40.0 BENIGN PROSTATIC HYPERPLASIA WITHOUT LOW 08/16/2017 WARD EPSTEIN DEBBIE Ot R55 SYNCOPE AND COLLAPSE 08/16/2017 WARD EPSTEIN DEBBIE Ot Z86.71 1 PERSONAL HISTORY OF PULMONARY EMBOLISM 08/16/2017 DEBBIE HOPPER DO Ot Z86.71 8 PERSONAL HISTORY OF OTHER VENOUS THROMBO 08/16/2017 WARD EPSTEIN DEBBIE Ot Z95.0 PRESENCE OF CARDIAC PACEMAKER 08/16/2017 WARD EPSTEIN DEBBIE Ot Z95.1 PRESENCE OF AORTOCORONARY BYPASS GRAFT 08/17/2017 PHANI VILLA APRN Ot E78.00 PURE HYPERCHOLESTEROLEMIA, UNSPECIFIED 08/17/2017 PHANI VILLA APRN Ot I10 ESSENTIAL (PRIMARY) HYPERTENSION 08/17/2017 PHANI VILLA APRN Ot I25.10 ATHSCL HEART DISEASE OF [place] CORONARY 08/17/2017 PHANI VILLA APRN Ot N39 .0 URINARY TRACT INFECTION, SITE NOT SPECIF 08/17/2017 PHANI VILLA APRN Ot N40 .0 BENIGN PROSTATIC HYPERPLASIA WITHOUT LOW 08/17/2017 PHANI VILLA APRN Ot R42 DIZZINESS AND GIDDINESS 08/17/2017 PHANI VILLA APRN Ot Z86.711 PERSONAL HISTORY OF PULMONARY EMBOLISM 08/17/2017 PHANI VILLA APRN Ot Z86.718 PERSONAL HISTORY OF OTHER VENOUS THROMBO 08/17/2017 PHANI VILLA APRN Ot Z87.81 PERSONAL HISTORY OF (HEALED) TRAUMATIC F 08/17/2017 PHANI VILLA APRN Ot Z88 .8 ALLERGY STATUS TO OTH DRUG/MEDS/BIOL SUB 08/17/2017 PHANI VILLA APRN Ot Z95 .0 PRESENCE OF CARDIAC PACEMAKER 08/17/2017 PHANI VILLA APRN Ot Z95 .5 PRESENCE OF CORONARY ANGIOPLASTY IMPLANT 08/21/2017 PHANI VILLA APRN Ot E78.00 PURE HYPERCHOLESTEROLEMIA, UNSPECIFIED 08/21/2017 PHANI VILLA APRN Ot I10 ESSENTIAL (PRIMARY) HYPERTENSION 08/21/2017 PHANI VILLA APRN Ot I25.10 ATHSCL HEART DISEASE OF [place] CORONARY 08/21/2017 PHANI VILLA APRN Ot N39 .0 URINARY TRACT INFECTION, SITE NOT SPECIF 08/21/2017 PHANI VILLA APRN Ot N40 .0 BENIGN PROSTATIC HYPERPLASIA WITHOUT LOW 08/21/2017 PHANI VILLA APRN Ot R42 DIZZINESS AND GIDDINESS 08/21/2017 PHANI VILLA APRN Ot Z86.711 PERSONAL HISTORY OF PULMONARY EMBOLISM 08/21/2017 PHANI VILLA APRN Ot Z86.718 PERSONAL HISTORY OF OTHER VENOUS THROMBO 08/21/2017 PHANI VILLA APRN Ot Z87.81 PERSONAL HISTORY OF (HEALED) TRAUMATIC F 08/21/2017 PHANI VILLA APRN Ot Z88 .8 ALLERGY STATUS TO OTH DRUG/MEDS/BIOL SUB 08/21/2017 PHANI VILLA APRN Ot Z95 .0 PRESENCE OF CARDIAC PACEMAKER 08/21/2017 PHANI VILLA APRN Ot Z95 .5 PRESENCE OF CORONARY ANGIOPLASTY IMPLANT 09/16/2017 PATSY MCADAMS DO Ot Z01.818 ENCOUNTER FOR OTHER PREPROCEDURAL EXAMIN 09/20/2017 ROBE LOMBARDI MD Ot D50.0 IRON DEFICIENCY ANEMIA SECONDARY TO BLOO 09/20/2017 ROBE LOMBARDI MD Ot E78.0 0 PURE HYPERCHOLESTEROLEMIA, UNSPECIFIED 09/20/2017 ROBE LOMBARDI MD Ot I13.0 HYP HRT CHR KDNY DIS W HRT FAIL AND ST 09/20/2017 ROBE LOMBARDI MD Ot 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 09/20/2017 ROBE LOMBARDI MD Ot 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 CARDIOMYOPATHY 09/20/2017 GAULT MD, ROBE R Ot I50.2 3 ACUTE ON CHRONIC SYSTOLIC (CONGESTIVE) H 09/20/2017 ROEB LOMBARDI MD Ot K43.2 INCISIONAL HERNIA WITHOUT OBSTRUCTION OR 09/20/2017 ROBE LOMBARDI MD, Ot N18.9 CHRONIC KIDNEY DISEASE, UNSPECIFIED 09/20/2017 ROBE LOMBARDI MD, Ot N31.9 NEUROMUSCULAR DYSFUNCTION OF BLADDER, UN 09/20/2017 ROBE LOMBARDI MD Ot N40.1 BENIGN PROSTATIC HYPERPLASIA WITH LOWER 09/20/2017 ROBE LOMBARDI MD Ot R01.1 CARDIAC MURMUR, UNSPECIFIED 09/20/2017 ROBE LOMBARDI MD, Ot R31.9 HEMATURIA, UNSPECIFIED 09/20/2017 ROBE LOMBARDI MD, Ot R33.9 RETENTION OF URINE, UNSPECIFIED 09/20/2017 ROBE LOMBARDI MD Ot Z86.7 11 PERSONAL HISTORY OF PULMONARY EMBOLISM 09/20/2017 ROBE LOMBARDI MD Ot Z86.7 18 PERSONAL HISTORY OF OTHER VENOUS THROMBO 09/20/2017 ROBE LOMBARDI MD Ot Z87.0 1 PERSONAL HISTORY OF PNEUMONIA (RECURRENT 09/20/2017 ROBE LOMBARDI MD Ot Z95.0 PRESENCE OF CARDIAC PACEMAKER 09/20/2017 ROBE LOMBARDI MD, Ot Z95.1 PRESENCE OF AORTOCORONARY BYPASS GRAFT 09/20/2017 ROBE LOMBARDI MD, Ot D50.0 IRON DEFICIENCY ANEMIA SECONDARY TO BLOO 09/20/2017 ROBE LOMBARDI MD, Ot E78.0 0 PURE HYPERCHOLESTEROLEMIA, UNSPECIFIED 09/20/2017 ROBE LOMBARDI MD, Ot E78.5 HYPERLIPIDEMIA, UNSPECIFIED 09/20/2017 ROBE LOMBARDI MD, Ot I13.0 HYP HRT CHR KDNY DIS W HRT FAIL AND ST 09/20/2017 ROBE LOMBARDI MD Ot 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 09/20/2017 ROBE LOMBARDI MD, Ot 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 CARDIOMYOPATHY 09/20/2017 ROBE LOMBARDI MD, Ot I50.2 3 ACUTE ON CHRONIC SYSTOLIC (CONGESTIVE) H 09/20/2017 ROBE LOMBARDI MD Ot I95.1 ORTHOSTATIC HYPOTENSION 09/20/2017 ROBE LOMBARDI MD, Ot K43.2 INCISIONAL HERNIA WITHOUT OBSTRUCTION OR 09/20/2017 ROBE LOMBARDI MD, Ot N18.9 CHRONIC KIDNEY DISEASE, UNSPECIFIED 09/20/2017 ROBE LOMBARDI MD, Ot N31.9 NEUROMUSCULAR DYSFUNCTION OF BLADDER, UN 09/20/2017 ROBE LOMBARDI MD, Ot N40.1 BENIGN PROSTATIC HYPERPLASIA WITH LOWER 09/20/2017 ROBE LOMBARDI MD, Ot R01.1 CARDIAC MURMUR, UNSPECIFIED 09/20/2017 ROBE LOMBARDI MD, Ot R31.9 HEMATURIA, UNSPECIFIED 09/20/2017 ROBE LOMBARDI MD, Ot R33.9 RETENTION OF URINE, UNSPECIFIED 09/20/2017 ROBE LOMBARDI MD, Ot R53.8 1 OTHER MALAISE 09/20/2017 ROBE LOMBARDI MD, Ot Z79.8 99 OTHER INVESTMENT MANAGER (CURRENT) DRUG THERAPY 09/20/2017 ROBE LOMBARDI MD, Ot Z86.7 11 PERSONAL HISTORY OF PULMONARY EMBOLISM 09/20/2017 ROBE LOMBARDI MD, Ot Z86.7 18 PERSONAL HISTORY OF OTHER VENOUS THROMBO 09/20/2017 ROBE LOMBARDI MD, Ot Z87.0 1 PERSONAL HISTORY OF PNEUMONIA (RECURRENT 09/20/2017 ROBE LOMBARDI MD, Ot Z95.0 PRESENCE OF CARDIAC PACEMAKER 09/20/2017 ROBE LOMBARDI MD, Ot Z95.1 PRESENCE OF AORTOCORONARY BYPASS GRAFT 09/22/2017 ROBE LOMBARDI MD, Ot D50.0 IRON DEFICIENCY ANEMIA SECONDARY TO BLOO 09/22/2017 ROBE LOMBARDI MD, Ot E78.5 HYPERLIPIDEMIA, UNSPECIFIED 09/22/2017 ROBE LOMBARDI MD, Ot I13.0 HYP HRT CHR KDNY DIS W HRT FAIL AND ST 09/22/2017 ROBE LOMBARDI MD, Ot 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 09/22/2017 ROBE LOMBARDI MD, Ot 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 CARDIOMYOPATHY 09/22/2017 ROBE LOMBARDI MD, Ot I50.2 3 ACUTE ON CHRONIC SYSTOLIC (CONGESTIVE) H 09/22/2017 ROBE LOMBARDI MD, Ot I95.1 ORTHOSTATIC HYPOTENSION 09/22/2017 ROBE LOMBARDI MD, Ot K43.2 INCISIONAL HERNIA WITHOUT OBSTRUCTION OR 09/22/2017 GAULT MD, ROBE R Ot N18.9 CHRONIC KIDNEY DISEASE, UNSPECIFIED 09/22/2017 ROBE LOMBARDI MD Ot N31.9 NEUROMUSCULAR DYSFUNCTION OF BLAD[place], UN 09/22/2017 ROBE LOMBARDI MD Ot N40.1 BENIGN PROSTATIC HYPERPLASIA WITH LOWER 09/22/2017 ROBE LOMBARDI MD Ot R01.1 CARDIAC MURMUR, UNSPECIFIED 09/22/2017 ROBE LOMBARDI MD Ot R31.9 HEMATURIA, UNSPECIFIED 09/22/2017 ROBE LOMBARDI MD Ot R33.9 RETENTION OF URINE, UNSPECIFIED 09/22/2017 ROBE LOMBARDI MD Ot R53.8 1 OTHER MALAISE 09/22/2017 ROBE LOMBARDI MD Ot Z86.7 11 PERSONAL HISTORY OF PULMONARY EMBOLISM 09/22/2017 ROBE LOMBARDI MD Ot Z86.7 18 PERSONAL HISTORY OF OTHER VENOUS THROMBO 09/22/2017 ROBE LOMBARDI MD Ot Z87.0 1 PERSONAL HISTORY OF PNEUMONIA (RECURRENT 09/22/2017 ROBE LOMBARDI MD Ot Z95.0 PRESENCE OF CARDIAC PACEMAKER 09/22/2017 ROBE LOMBARDI MD Ot Z95.1 PRESENCE OF AORTOCORONARY BYPASS GRAFT 09/25/2017 JIM PAGE DO Ot D50.9 IRON DEFICIENCY ANEMIA, UNSPECIFIED 09/25/2017 JIM PAGE DO Ot E78.00 PURE HYPERCHOLESTEROLEMIA, UNSPECIFIED 09/25/2017 JIM PAGE DO Ot I11.0 HYPERTENSIVE HEART DISEASE WITH HEART FA 09/25/2017 JIM PAGE DO, Ot I25.10 ATHSCL HEART DISEASE OF [place] CORONARY 09/25/2017 JIM PAGE DO, Ot 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 CARDIOMYOPATHY 09/25/2017 JIM PAGE DO Ot I50.20 UNSPECIFIED SYSTOLIC (CONGESTIVE) HEART 09/25/2017 JIM PAGE DO, Ot K59.00 CONSTIPATION, UNSPECIFIED 09/25/2017 JIM PAGE DO, Ot N28.9 DISORDER OF KIDNEY AND URETER, UNSPECIFI 09/25/2017 JIM PAGE DO, Ot N31.9 NEUROMUSCULAR DYSFUNCTION OF [place], UN 09/25/2017 JIM PAGE DO E Ot N40.1 BENIGN PROSTATIC HYPERPLASIA WITH LOWER 09/25/2017 BARJYOTHIJIM Dick DO Ot R53.1 WEAKNESS 09/25/2017 [facility] Ot Z86.711 PERSONAL HISTORY OF PULMONARY EMBOLISM 09/25/2017 SHERIJIM Dick DO Ot Z86.718 PERSONAL HISTORY OF OTHER VENOUS THROMBO 09/25/2017 [facility] Ot Z95.0 PRESENCE OF CARDIAC PACEMAKER 09/25/2017 [facility] DOJIM Ot Z95.1 PRESENCE OF AORTOCORONARY BYPASS GRAFT 09/25/2017 SHERIJIM Dick DO Ot D50.9 IRON DEFICIENCY ANEMIA, UNSPECIFIED 09/25/2017 [facility] DOJIM Ot E78.00 PURE HYPERCHOLESTEROLEMIA, UNSPECIFIED 09/25/2017 [facility] [place] JIM EPSTEIN Ot I11.0 HYPERTENSIVE HEART DISEASE WITH HEART FA 09/25/2017 [facility] JIM EPSTEIN Ot I25.10 ATHSCL HEART DISEASE OF [place] CORONARY 09/25/2017 [facility] JIM EPSTEIN Ot 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 CARDIOMYOPATHY 09/25/2017 [facility] JIM EPSTEIN Ot I50.20 UNSPECIFIED SYSTOLIC (CONGESTIVE) HEART 09/25/2017 SHERIJIM Dick DO Ot K59.00 CONSTIPATION, UNSPECIFIED 09/25/2017 [facility]IM EPSTEIN Ot N28.9 DISORDER OF KIDNEY AND URETER, UNSPECIFI 09/25/2017 [facility] Dick DO Ot N31.9 NEUROMUSCULAR DYSFUNCTION OF [place], UN 09/25/2017 [facility]May[facility] DOJIM Ot N40.1 BENIGN PROSTATIC HYPERPLASIA WITH LOWER 09/25/2017 [place] DOJIM Ot R53.1 WEAKNESS 09/25/2017 [facility] Dick DO Ot Z86.711 PERSONAL HISTORY OF PULMONARY EMBOLISM 09/25/2017 SHERIJIM Dick DO Ot Z86.718 PERSONAL HISTORY OF OTHER VENOUS THROMBO 09/25/2017 SHERIJIM Dick DO Ot Z95.0 PRESENCE OF CARDIAC PACEMAKER 09/25/2017 [facility] EP[facility] JIM Mayelin Ot Z95.1 PRESENCE OF AORTOCORONARY BYPASS GRAFT 01/17/2018 Gabrielle HINOJOSA MD, Ot I25.10 ATHSCL HEART DISEASE OF [place] CORONARY 01/17/2018 Gabrielle HINOJOSA MD, Ot I42 .9 CARDIOMYOPATHY, UNSPECIFIED 01/17/2018 MICAELA CAMPOS, Gabrielle KAUR Ot N18 .9 CHRONIC KIDNEY DISEASE, UNSPECIFIED 01/17/2018 Gabrielle HINOJOSA MD, Ot Z95 .0 PRESENCE OF CARDIAC PACEMAKER 01/27/2018 Gabrielle HINOJOSA MD, Ot I25.10 ATHSCL HEART DISEASE OF [place] CORONARY 01/27/2018 Gabrielle HINOJOSA MD, Ot I42 .9 CARDIOMYOPATHY, UNSPECIFIED 01/27/2018 Gabrielle HINOJOSA MD, Ot N18 .9 CHRONIC KIDNEY DISEASE, UNSPECIFIED 01/27/2018 Gabrielle HINOJOSA MD, Ot Z95 .0 PRESENCE OF CARDIAC PACEMAKER 03/08/2018 PIEDAD RILEY MD, Ot E78.00 PURE HYPERCHOLESTEROLEMIA, UNSPECIFIED 03/08/2018 PIEDAD RILEY MD, Ot I10 ESSENTIAL (PRIMARY) HYPERTENSION 03/08/2018 PIEDAD RILEY MD, Ot I25.10 ATHSCL HEART DISEASE OF [place] CORONARY 03/08/2018 PIEDAD RILEY MD, Ot I42.9 CARDIOMYOPATHY, UNSPECIFIED 03/08/2018 PIEDAD RILEY MD, Ot I48.91 UNSPECIFIED ATRIAL FIBRILLATION 03/08/2018 PIEDAD RILEY MD, Ot N31.9 NEUROMUSCULAR DYSFUNCTION OF [place], UN 03/08/2018 PIEDAD RILEY MD, Ot N39.0 URINARY TRACT INFECTION, SITE NOT SPECIF 03/08/2018 PIEDAD RILEY MD, Ot Z77.22 CNTCT W AND EXPSR TO ENVIRON TOBACCO SMO 03/08/2018 PIEDAD RILEY MD, Ot Z79.82 CORRECTION (CURRENT) USE OF ASPIRIN 03/08/2018 PIEDAD RILEY MD, Ot Z80.1 FAMILY HISTORY OF MALIG NEOPLASM OF TRAC 03/08/2018 PIEDAD RILEY MD, Ot Z80.42 FAMILY HISTORY OF MALIGNANT NEOPLASM OF 03/08/2018 PIEDAD RILEY MD, Ot Z82.49 FAMILY HX OF ISCHEM HEART DIS AND OTH DI 03/08/2018 PIEDAD RILEY MD, Ot Z86.718 PERSONAL HISTORY OF OTHER VENOUS THROMBO 03/08/2018 PIEDAD RILEY MD, Ot Z87.01 PERSONAL HISTORY OF PNEUMONIA (RECURRENT 03/08/2018 PIEDAD RILEY MD, Ot Z87.19 PERSONAL HISTORY OF OTHER DISEASES OF TH 03/08/2018 PIEDAD RILEY MD, Ot Z87.448 PERSONAL HISTORY OF OTHER DISEASES OF UR 03/08/2018 PIEDAD RILEY MD, Ot Z88.8 ALLERGY STATUS TO [facility] DRUG/MEDS/BIOL SUB 03/08/2018 PIEDAD RILEY MD, Ot Z90.711 ACQUIRED ABSENCE OF UTERUS WITH REMAININ 03/08/2018 PIEDAD RILEY MD Ot Z95.0 PRESENCE OF CARDIAC PACEMAKER 03/08/2018 PIEDAD RILEY MD, Ot Z95.1 PRESENCE OF AORTOCORONARY BYPASS GRAFT 03/08/2018 PIEDAD RILEY MD, Ot Z96.0 PRESENCE OF UROGENITAL IMPLANTS 03/08/2018 PIEDAD RILEY MD, Ot Z98.890 OTHER SPECIFIED POSTPROCEDURAL STATES 03/12/2018 PATSY MCADAMS DO Ot Z01.818 ENCOUNTER FOR OTHER PREPROCEDURAL EXAMIN 03/12/2018 Gabrielle HINOJOSA MD Ot I25.10 ATHSCL HEART DISEASE OF [place] CORONARY 03/12/2018 Gabrielle HINOJOSA MD Ot I42 .9 CARDIOMYOPATHY, UNSPECIFIED 03/12/2018 Gabrielle HINOJOSA MD Ot N18 .9 CHRONIC KIDNEY DISEASE, UNSPECIFIED 03/12/2018 Gabrielle HINOJOSA MD Ot Z95 .0 PRESENCE OF CARDIAC PACEMAKER 03/12/2018 PHANI VILLA APRN Ot E78.00 PURE HYPERCHOLESTEROLEMIA, UNSPECIFIED 03/12/2018 PHANI VILLA APRN Ot I10 ESSENTIAL (PRIMARY) HYPERTENSION 03/12/2018 PHANI VILLA APRN Ot I25.10 ATHSCL HEART DISEASE OF [place] CORONARY 03/12/2018 PHANI VILLA APRN Ot I26.99 OTHER PULMONARY EMBOLISM WITHOUT ACUTE C 03/12/2018 PHANI VILLA APRN Ot I42 .9 CARDIOMYOPATHY, UNSPECIFIED 03/12/2018 PHANI VILLA APRN Ot I48.91 UNSPECIFIED ATRIAL FIBRILLATION 03/12/2018 PHANI VILLA APRN Ot R06.02 SHORTNESS OF BREATH 03/12/2018 PHANI VILLA APRN Ot R31 .9 HEMATURIA, UNSPECIFIED 03/12/2018 PHANI VILLA APRN Ot Z77.22 CNTCT W AND EXPSR TO ENVIRON TOBACCO SMO 03/12/2018 PHANI VILLA APRN Ot Z79.01 INVESTMENT MANAGER (CURRENT) USE OF ANTICOAGULANT 03/12/2018 PHANI VILLA APRN Ot Z79.82 INVESTMENT MANAGER (CURRENT) USE OF ASPIRIN 03/12/2018 PHANI VILLA APRN Ot Z80 .0 FAMILY HISTORY OF MALIGNANT NEOPLASM OF 03/12/2018 PHANI VILLA APRN Ot Z80.42 FAMILY HISTORY OF MALIGNANT NEOPLASM OF 03/12/2018 PHANI VILLA APRN Ot Z82.49 FAMILY HX OF ISCHEM HEART DIS AND OTH DI 03/12/2018 PHANI VILLA APRN Ot Z86.711 PERSONAL HISTORY OF PULMONARY EMBOLISM 03/12/2018 PHANI VILLA APRN Ot Z86.718 PERSONAL HISTORY OF OTHER VENOUS THROMBO 03/12/2018 PHANI VILLA APRN Ot Z87.01 PERSONAL HISTORY OF PNEUMONIA (RECURRENT 03/12/2018 PHANI VILLA APRN Ot Z87.19 PERSONAL HISTORY OF OTHER DISEASES OF TH 03/12/2018 PHANI VILLA APRN Ot Z87.440 PERSONAL HISTORY OF URINARY (TRACT) INFE 03/12/2018 PHANI VILLA APRN Ot Z87.448 PERSONAL HISTORY OF OTHER DISEASES OF UR 03/12/2018 PHANI VILLA APRN Ot Z88 .8 ALLERGY STATUS TO [facility] DRUG/MEDS/BIOL SUB 03/12/2018 PHANI VILLA APRN Ot Z95 .0 PRESENCE OF CARDIAC PACEMAKER 03/12/2018 PHANI VILLA APRN Ot Z95 .1 PRESENCE OF AORTOCORONARY BYPASS GRAFT 03/12/2018 PHANI VILLA APRN Ot Z96 .0 PRESENCE OF UROGENITAL IMPLANTS 03/12/2018 PHANI VILLA APRN Ot Z98.890 OTHER SPECIFIED POSTPROCEDURAL STATES 03/14/2018 PIEDAD RILEY MD, Ot E78.00 PURE HYPERCHOLESTEROLEMIA, UNSPECIFIED 03/14/2018 PIEDAD RILEY MD, Ot I10 ESSENTIAL (PRIMARY) HYPERTENSION 03/14/2018 PIEDAD RILEY MD, Ot I25.10 ATHSCL HEART DISEASE OF [place] CORONARY 03/14/2018 PIEDAD RILEY MD, Ot I42.9 CARDIOMYOPATHY, UNSPECIFIED 03/14/2018 PIEDAD RILEY MD, Ot I48.91 UNSPECIFIED ATRIAL FIBRILLATION 03/14/2018 PIEDAD RILEY MD, Ot N31.9 NEUROMUSCULAR DYSFUNCTION OF BLADDER, UN 03/14/2018 PIEDAD RILEY MD, Ot N39.0 URINARY TRACT INFECTION, SITE NOT SPECIF 03/14/2018 PIEDAD RILEY MD, Ot Z77.22 CNTCT W AND EXPSR TO ENVIRON TOBACCO SMO 03/14/2018 PIEDAD RILEY MD, Ot Z79.82 CORRECTION (CURRENT) USE OF ASPIRIN 03/14/2018 PIEDAD RILEY MD, Ot Z80.1 FAMILY HISTORY OF MALIG NEOPLASM OF [place] 03/14/2018 PIEDAD RILEY MD, Ot Z80.42 FAMILY HISTORY OF MALIGNANT NEOPLASM OF 03/14/2018 PIEDAD RILEY MD, Ot Z82.49 FAMILY HX OF ISCHEM HEART DIS AND OTH DI 03/14/2018 PIEDAD RILEY MD, Ot Z86.718 PERSONAL HISTORY OF OTHER VENOUS THROMBO 03/14/2018 PIEDAD RILEY MD, Ot Z87.01 PERSONAL HISTORY OF PNEUMONIA (RECURRENT 03/14/2018 PIEDAD RILEY MD, Ot Z87.19 PERSONAL HISTORY OF OTHER DISEASES OF TH 03/14/2018 PIEDAD RILEY MD, Ot Z87.448 PERSONAL HISTORY OF OTHER DISEASES OF UR 03/14/2018 PIEDAD RILEY MD, Ot Z88.8 ALLERGY STATUS TO [facility] DRUG/MEDS/BIOL SUB 03/14/2018 PIEDAD RILEY MD, Ot Z90.711 ACQUIRED ABSENCE OF UTERUS WITH REMAININ 03/14/2018 PIEDAD RILEY MD Ot Z95.0 PRESENCE OF CARDIAC PACEMAKER 03/14/2018 PIEDAD RILEY MD Ot Z95.1 PRESENCE OF AORTOCORONARY BYPASS GRAFT 03/14/2018 PIEDAD RILEY MD Ot Z96.0 PRESENCE OF UROGENITAL IMPLANTS 03/14/2018 PIEDAD RILEY MD Ot Z98.890 OTHER SPECIFIED POSTPROCEDURAL STATES 03/14/2018 PHANI VILLA APRN Ot E78.00 PURE HYPERCHOLESTEROLEMIA, UNSPECIFIED 03/14/2018 PHANI VILLA APRN Ot I10 ESSENTIAL (PRIMARY) HYPERTENSION 03/14/2018 PHANI VILLA APRN Ot I25.10 ATHSCL HEART DISEASE OF [place] CORONARY 03/14/2018 PHANI VILLA APRN Ot I26.99 OTHER PULMONARY EMBOLISM WITHOUT ACUTE C 03/14/2018 PHANI VILLA APRN Ot I42 .9 CARDIOMYOPATHY, UNSPECIFIED 03/14/2018 PHANI VILLA APRN Ot I48.91 UNSPECIFIED ATRIAL FIBRILLATION 03/14/2018 PHANI VILLA APRN Ot R06.02 SHORTNESS OF BREATH 03/14/2018 PHANI VILLA APRN Ot R31 .9 HEMATURIA, UNSPECIFIED 03/14/2018 PHANI VILLA APRN Ot Z77.22 CNTCT W AND EXPSR TO ENVIRON TOBACCO SMO 03/14/2018 PHANI VILLA APRN Ot Z79.01 CORRECTION (CURRENT) USE OF ANTICOAGULANT 03/14/2018 PHANI VILLA APRN Ot Z79.82 CORRECTION (CURRENT) USE OF ASPIRIN 03/14/2018 PHANI VILLA APRN Ot Z80 .0 FAMILY HISTORY OF MALIGNANT NEOPLASM OF 03/14/2018 PHANI VILLA APRN Ot Z80.42 FAMILY HISTORY OF MALIGNANT NEOPLASM OF 03/14/2018 PHANI VILLA APRN Ot Z82.49 FAMILY HX OF ISCHEM HEART DIS AND OTH DI 03/14/2018 PHANI VILLA APRN Ot Z86.711 PERSONAL HISTORY OF PULMONARY EMBOLISM 03/14/2018 PHANI VILLA APRN Ot Z86.718 PERSONAL HISTORY OF OTHER VENOUS THROMBO 03/14/2018 PHANI VILLA APRN Ot Z87.01 PERSONAL HISTORY OF PNEUMONIA (RECURRENT 03/14/2018 PHANI VILLA APRN Ot Z87.19 PERSONAL HISTORY OF OTHER DISEASES OF TH 03/14/2018 PHANI VILLA APRN Ot Z87.440 PERSONAL HISTORY OF URINARY (TRACT) INFE 03/14/2018 PHANI VILLA APRN Ot Z87.448 PERSONAL HISTORY OF OTHER DISEASES OF UR 03/14/2018 PHANI VILLA APRN Ot Z88 .8 ALLERGY STATUS TO [facility] DRUG/MEDS/BIOL SUB 03/14/2018 PHANI VILLA APRN Ot Z95 .0 PRESENCE OF CARDIAC PACEMAKER 03/14/2018 PHANI VILLA APRN Ot Z95 .1 PRESENCE OF AORTOCORONARY BYPASS GRAFT 03/14/2018 PHANI VILLA APRN Ot Z96 .0 PRESENCE OF UROGENITAL IMPLANTS 03/14/2018 PHANI VILLA APRN Ot Z98.890 OTHER SPECIFIED POSTPROCEDURAL STATES 07/20/2018 MARLON CAMPOS FACC, LUIS CARLOS FACP CCDS Ot 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 07/20/2018 MARLON CAMPOS FACC, LUIS CARLOS FACP CCDS Ot D50.9 IRON DEFICIENCY ANEMIA, UNSPECIFIED 07/20/2018 MARLON CAMPOS FACC, LUIS CARLOS FACP CCDS Ot E78.00 PURE HYPERCHOLESTEROLEMIA, UNSPECIFIED 07/20/2018 MARLON CAMPOS FACC, LUIS CARLOS FACP CCDS Ot I12.9 HYPERTENSIVE CHRONIC KIDNEY DISEASE W ST 07/20/2018 MARLON CAMPOS FACC, LUIS CARLOS FACP CCDS Ot I21.4 NON-ST ELEVATION (NSTEMI) MYOCARDIAL INF 07/20/2018 MARLON CAMPOS FACC, LUIS CARLOS FACP CCDS Ot I25.10 ATHSCL HEART DISEASE OF [place] CORONARY 07/20/2018 LUIS CARLOS MASON MD, FACC FACP CCDS Ot I25.5 ISCHEMIC CARDIOMYOPATHY 07/20/2018 MARLON CAMPOS FACC, LUIS CARLOS FACP CCDS Ot I25.810 ATHEROSCLEROSIS OF CABG W/O ANGINA PECTO 07/20/2018 LUIS CARLOS MASON MD, FACC FACP CCDS Ot I44.7 LEFT BUNDLE-BRANCH BLOCK, UNSPECIFIED 07/20/2018 LUIS CARLOS MASON MD, FACC FACP CCDS Ot I48.91 UNSPECIFIED ATRIAL FIBRILLATION 07/20/2018 LUIS CARLOS MASON MD, FACC FACP CCDS Ot K21.9 GASTRO-ESOPHAGEAL REFLUX DISEASE WITHOUT 07/20/2018 MARLON CAMPOS FACC, LUIS CARLOS FACP CCDS Ot K40.90 UNIL INGUINAL HERNIA, W/O OBST OR GANGR, 07/20/2018 LUIS CARLOS MASNO MD, FACC FACP CCDS Ot K59.09 OTHER CONSTIPATION 07/20/2018 LUIS CARLOS MASON MD, FACC FACP CCDS Ot N18.4 CHRONIC KIDNEY DISEASE, STAGE 4 (SEVERE) 07/20/2018 LUIS CARLOS MASON MD, FACC FACP CCDS Ot N28.9 DISORDER OF KIDNEY AND URETER, UNSPECIFI 07/20/2018 LUIS CARLOS MASON MD, FACC FACP CCDS Ot N31.9 NEUROMUSCULAR DYSFUNCTION OF BLADDER, UN 07/20/2018 LUIS CARLOS MASON MD, FACC FACP CCDS Ot N39.0 URINARY TRACT INFECTION, SITE NOT SPECIF 07/20/2018 LUIS CARLOS MASON MD, FACC FACP CCDS Ot N40.1 BENIGN PROSTATIC HYPERPLASIA WITH LOWER 07/20/2018 LUIS CARLOS MASON MD, FACC FACP CCDS Ot R35.0 FREQUENCY OF MICTURITION 07/20/2018 LUIS CARLOS MASON MD, FACC FACP CCDS Ot T83.511A I/I REACT D/T INDWELLING URETHRAL CATHET 07/20/2018 LUIS CARLOS MASON MD, FACC FACP CCDS Ot Z77.22 CNTCT W AND EXPSR TO ENVIRON TOBACCO SMO 07/20/2018 LUIS CARLOS MASON MD, FACC FACP CCDS Ot Z79.01 INVESTMENT MANAGER (CURRENT) USE OF ANTICOAGULANT 07/20/2018 LUIS CARLOS MASON MD, FACC FACP CCDS Ot Z80.42 FAMILY HISTORY OF MALIGNANT NEOPLASM OF 07/20/2018 LUIS CARLOS MASON MD, FACC FACP CCDS Ot Z86.711 PERSONAL HISTORY OF PULMONARY EMBOLISM 07/20/2018 LUIS CARLOS MASON MD, FACC FACP CCDS Ot Z86.718 PERSONAL HISTORY OF OTHER VENOUS THROMBO 07/20/2018 MARLON CAMPOS FACC ALI FACP CCDS Ot Z95.0 PRESENCE OF CARDIAC PACEMAKER 07/20/2018 LUIS CARLOS MASON MD, FACC FACP CCDS Ot Z95.1 PRESENCE OF AORTOCORONARY BYPASS GRAFT 07/21/2018 BRUPIEDAD PANDA MD, Ot E78.00 PURE HYPERCHOLESTEROLEMIA, UNSPECIFIED 07/21/2018 PIEDAD RILEY MD, Ot I10 ESSENTIAL (PRIMARY) HYPERTENSION 07/21/2018 PIEDAD RILEY MD, Ot I25.10 ATHSCL HEART DISEASE OF [place] CORONARY 07/21/2018 PIEDAD RILEY MD, Ot I42.9 CARDIOMYOPATHY, UNSPECIFIED 07/21/2018 PIEDAD RILEY MD, Ot I48.91 UNSPECIFIED ATRIAL FIBRILLATION 07/21/2018 PIEDAD RILEY MD, Ot K21.9 GASTRO-ESOPHAGEAL REFLUX DISEASE WITHOUT 07/21/2018 PIEDAD IRLEY MD, Ot K40.90 UNIL INGUINAL HERNIA, W/O OBST OR GANGR, 07/21/2018 PIEDAD RILEY MD, Ot K44.9 DIAPHRAGMATIC HERNIA WITHOUT OBSTRUCTION 07/21/2018 PIEDAD RILEY MD, Ot N39.0 URINARY TRACT INFECTION, SITE NOT SPECIF 07/21/2018 PIEDAD RILEY MD, Ot R07.89 OTHER CHEST PAIN 07/21/2018 PIEDAD RILEY MD, Ot R07.9 CHEST PAIN, UNSPECIFIED 07/21/2018 PIEDAD RILEY MD, Ot Z77.22 CNTCT W AND EXPSR TO ENVIRON TOBACCO SMO 07/21/2018 PIEDAD RILEY MD, Ot Z79.01 CORRECTION (CURRENT) USE OF ANTICOAGULANT 07/21/2018 PIEDAD RILEY MD, Ot Z79.82 CORRECTION (CURRENT) USE OF ASPIRIN 07/21/2018 PIEDAD RILEY MD, Ot Z80.42 FAMILY HISTORY OF MALIGNANT NEOPLASM OF 07/21/2018 PIEDAD RILEY MD, Ot Z82.49 FAMILY HX OF ISCHEM HEART DIS AND OTH DI 07/21/2018 PIEDAD RILEY MD, Ot Z86.711 PERSONAL HISTORY OF PULMONARY EMBOLISM 07/21/2018 PIEDAD RILEY MD, Ot Z86.718 PERSONAL HISTORY OF OTHER VENOUS THROMBO 07/21/2018 PIEDAD RILEY MD, Ot Z87.01 PERSONAL HISTORY OF PNEUMONIA (RECURRENT 07/21/2018 PIEDAD RILEY MD, Ot Z87.19 PERSONAL HISTORY OF OTHER DISEASES OF TH 07/21/2018 PIEDAD RILEY MD, Ot Z87.448 PERSONAL HISTORY OF OTHER DISEASES OF UR 07/21/2018 PIEDAD RILEY MD, Ot Z88.8 ALLERGY STATUS TO [facility] DRUG/MEDS/BIOL SUB 07/21/2018 PIEDAD RILEY MD, Ot Z95.0 PRESENCE OF CARDIAC PACEMAKER 07/21/2018 PIEDAD RILEY MD, Ot Z95.1 PRESENCE OF AORTOCORONARY BYPASS GRAFT 07/21/2018 PIEDAD RILEY MD, Ot Z98.890 OTHER SPECIFIED POSTPROCEDURAL STATES 07/26/2018 PIEDAD RILEY MD, Ot E78.00 PURE HYPERCHOLESTEROLEMIA, UNSPECIFIED 07/26/2018 PIEDAD RILEY MD, Ot I10 ESSENTIAL (PRIMARY) HYPERTENSION 07/26/2018 PIEDAD RILEY MD, Ot I25.10 ATHSCL HEART DISEASE OF [place] CORONARY 07/26/2018 PIEDAD RILEY MD, Ot I42.9 CARDIOMYOPATHY, UNSPECIFIED 07/26/2018 PIEDAD RILEY MD, Ot I48.91 UNSPECIFIED ATRIAL FIBRILLATION 07/26/2018 PIEDAD RILEY MD, Ot K21.9 GASTRO-ESOPHAGEAL REFLUX DISEASE WITHOUT 07/26/2018 PIEDAD RILEY MD, Ot K40.90 UNIL INGUINAL HERNIA, W/O OBST OR GANGR, 07/26/2018 PIEDAD RILEY MD, Ot K44.9 DIAPHRAGMATIC HERNIA WITHOUT OBSTRUCTION 07/26/2018 PIEDAD RILEY MD, Ot N39.0 URINARY TRACT INFECTION, SITE NOT SPECIF 07/26/2018 PIEDAD RILEY MD, Ot R07.89 OTHER CHEST PAIN 07/26/2018 PIEDAD RILEY MD, Ot R07.9 CHEST PAIN, UNSPECIFIED 07/26/2018 PIEDAD RILEY MD, Ot Z77.22 CNTCT W AND EXPSR TO ENVIRON TOBACCO SMO 07/26/2018 PIEDAD RILEY MD, Ot Z79.01 INVESTMENT MANAGER (CURRENT) USE OF ANTICOAGULANT 07/26/2018 PIEDAD RILEY MD, Ot Z79.82 CORRECTION (CURRENT) USE OF ASPIRIN 07/26/2018 PIEDAD RILEY MD, Ot Z80.42 FAMILY HISTORY OF MALIGNANT NEOPLASM OF 07/26/2018 PIEDAD RILEY MD, Ot Z82.49 FAMILY HX OF ISCHEM HEART DIS AND OTH DI 07/26/2018 PIEDAD RILEY MD, Ot Z86.711 PERSONAL HISTORY OF PULMONARY EMBOLISM 07/26/2018 PIEDAD RILEY MD, Ot Z86.718 PERSONAL HISTORY OF OTHER VENOUS THROMBO 07/26/2018 PIEDAD RILEY MD, Ot Z87.01 PERSONAL HISTORY OF PNEUMONIA (RECURRENT 07/26/2018 PIEDAD RILEY MD, Ot Z87.19 PERSONAL HISTORY OF OTHER DISEASES OF TH 07/26/2018 PIEDAD RILEY MD, Ot Z87.448 PERSONAL HISTORY OF OTHER DISEASES OF UR 07/26/2018 PIEDAD RILEY MD, Ot Z88.8 ALLERGY STATUS TO [facility] DRUG/MEDS/BIOL SUB 07/26/2018 PIEDAD RILEY MD, Ot Z95.0 PRESENCE OF CARDIAC PACEMAKER 07/26/2018 PIEDAD RILEY MD, Ot Z95.1 PRESENCE OF AORTOCORONARY BYPASS GRAFT 07/26/2018 PIEDAD RILEY MD, Ot Z98.890 OTHER SPECIFIED POSTPROCEDURAL STATES 09/05/2018 PIEDAD RILEY MD Ot E11.9 TYPE 2 DIABETES MELLITUS WITHOUT COMPLIC 09/05/2018 PIEDAD RILEY MD Ot E78.00 PURE HYPERCHOLESTEROLEMIA, UNSPECIFIED 09/05/2018 PIEDAD RILEY MD, Ot E78.5 HYPERLIPIDEMIA, UNSPECIFIED 09/05/2018 PIEDAD RILEY MD, Ot I10 ESSENTIAL (PRIMARY) HYPERTENSION 09/05/2018 PIEDAD RILEY MD, Ot I25.10 ATHSCL HEART DISEASE OF [place] CORONARY 09/05/2018 PIEDAD RILEY MD, Ot I42.9 CARDIOMYOPATHY, UNSPECIFIED 09/05/2018 PIEDAD RILEY MD, Ot I48.91 UNSPECIFIED ATRIAL FIBRILLATION 09/05/2018 PIEDAD RILEY MD, Ot K21.9 GASTRO-ESOPHAGEAL REFLUX DISEASE WITHOUT 09/05/2018 PIEDAD RILEY MD, Ot N39.0 URINARY TRACT INFECTION, SITE NOT SPECIF 09/05/2018 PIEDAD RILEY MD, Ot N40.0 BENIGN PROSTATIC HYPERPLASIA WITHOUT LOW 09/05/2018 PIEDAD RILEY MD, Ot R07.9 CHEST PAIN, UNSPECIFIED 09/05/2018 PIEDAD RILEY MD, Ot Z79.01 INVESTMENT MANAGER (CURRENT) USE OF ANTICOAGULANT 09/05/2018 PIEDAD RILEY MD, Ot Z79.82 INVESTMENT MANAGER (CURRENT) USE OF ASPIRIN 09/05/2018 PIEDAD RILEY MD, Ot Z80.42 FAMILY HISTORY OF MALIGNANT NEOPLASM OF 09/05/2018 PIEDAD RILEY MD, Ot Z82.49 FAMILY HX OF ISCHEM HEART DIS AND OTH DI 09/05/2018 PIEDAD RILEY MD, Ot Z86.711 PERSONAL HISTORY OF PULMONARY EMBOLISM 09/05/2018 PIEDAD RILEY MD, Ot Z86.718 PERSONAL HISTORY OF OTHER VENOUS THROMBO 09/05/2018 PIEDAD RILEY MD, Ot Z87.01 PERSONAL HISTORY OF PNEUMONIA (RECURRENT 09/05/2018 PIEDAD RILEY MD, Ot Z87.19 PERSONAL HISTORY OF OTHER DISEASES OF TH 09/05/2018 PIEDAD RILEY MD, Ot Z88.8 ALLERGY STATUS TO [facility] DRUG/MEDS/BIOL SUB 09/05/2018 PIEDAD RILEY MD, Ot Z95.0 PRESENCE OF CARDIAC PACEMAKER 09/05/2018 PIEDAD RILEY MD, Ot Z95.1 PRESENCE OF AORTOCORONARY BYPASS GRAFT 09/05/2018 MARKIE FREIRE MD, Ot E78.00 PURE HYPERCHOLESTEROLEMIA, UNSPECIFIED 09/05/2018 MARKIE FREIRE MD, Ot I10 ESSENTIAL (PRIMARY) HYPERTENSION 09/05/2018 MARKIE FREIRE MD, Ot I25.10 ATHSCL HEART DISEASE OF [place] CORONARY 09/05/2018 MARKIE FREIRE MD, Ot I42.9 CARDIOMYOPATHY, UNSPECIFIED 09/05/2018 MARKIE FREIRE MD, Ot I48.91 UNSPECIFIED ATRIAL FIBRILLATION 09/05/2018 MARKIE FREIRE MD, Ot M25.552 PAIN IN LEFT HIP 09/05/2018 MARKIE FREIRE MD, Ot N40.0 BENIGN PROSTATIC HYPERPLASIA WITHOUT LOW 09/05/2018 MARKIE FREIRE MD, Ot R29.6 REPEATED FALLS 09/05/2018 MARKIE FREIRE MD, Ot S70.02XA CONTUSION OF LEFT HIP, INITIAL ENCOUNTER 09/05/2018 MARKIE FREIRE MD Ot W01.198A FALL SAME LEV FROM SLIP/TRIP W STRIKE AG 09/05/2018 MARKIE FREIRE MD, Ot Y92.[address] [facility] IN [facility] NON-[facility] (PRIVATE 09/05/2018 MARKIE FREIRE MD, Ot Z79.82 INVESTMENT MANAGER (CURRENT) USE OF ASPIRIN 09/05/2018 MARKIE FREIRE MD, Ot Z80.0 FAMILY HISTORY OF MALIGNANT NEOPLASM OF 09/05/2018 MARKIE FREIRE MD Ot Z80.42 FAMILY HISTORY OF MALIGNANT NEOPLASM OF 09/05/2018 MARKIE FREIRE MD Ot Z82.49 FAMILY HX OF ISCHEM HEART DIS AND OTH DI 09/05/2018 MARKIE FREIRE MD Ot Z86.711 PERSONAL HISTORY OF PULMONARY EMBOLISM 09/05/2018 MARKIE FREIRE MD Ot Z86.718 PERSONAL HISTORY OF OTHER VENOUS THROMBO 09/05/2018 MARKIE FREIRE MD Ot Z87.01 PERSONAL HISTORY OF PNEUMONIA (RECURRENT 09/05/2018 MARKIE FREIRE MD Ot Z87.440 PERSONAL HISTORY OF URINARY (TRACT) INFE 09/05/2018 MARKIE FREIRE MD Ot Z87.81 PERSONAL HISTORY OF (HEALED) TRAUMATIC F 09/05/2018 MARKIE FREIRE MD Ot Z88.8 ALLERGY STATUS TO [facility] DRUG/MEDS/BIOL SUB 09/05/2018 MARKIE FREIRE MD Ot Z95.0 PRESENCE OF CARDIAC PACEMAKER 09/05/2018 MARKIE FREIRE MD Ot Z95.1 PRESENCE OF AORTOCORONARY BYPASS GRAFT 09/11/2018 MARKIE FREIRE MD Ot E78.00 PURE HYPERCHOLESTEROLEMIA, UNSPECIFIED 09/11/2018 MARKIE FREIRE MD Ot I10 ESSENTIAL (PRIMARY) HYPERTENSION 09/11/2018 MARKIE FREIRE MD, Ot I25.10 ATHSCL HEART DISEASE OF [place] CORONARY 09/11/2018 MARKIE FREIRE MD, Ot I42.9 CARDIOMYOPATHY, UNSPECIFIED 09/11/2018 MARKIE FREIRE MD, Ot I48.91 UNSPECIFIED ATRIAL FIBRILLATION 09/11/2018 MARKIE FREIRE MD, Ot M25.552 PAIN IN LEFT HIP 09/11/2018 MARKIE FREIRE MD, Ot N40.0 BENIGN PROSTATIC HYPERPLASIA WITHOUT LOW 09/11/2018 MARKIE FREIRE MD, Ot R29.6 REPEATED FALLS 09/11/2018 MARKIE FREIRE MD, Ot S70.02XA CONTUSION OF LEFT HIP, INITIAL ENCOUNTER 09/11/2018 MARKIE FREIRE MD, Ot W01.198A FALL SAME LEV FROM SLIP/TRIP W STRIKE AG 09/11/2018 MARKIE FREIRE MD, Ot Y92.009 [facility] IN [facility] NON[facility] (PRIVATE 09/11/2018 MARKIE FREIRE MD, Ot Z79.82 INVESTMENT MANAGER (CURRENT) USE OF ASPIRIN 09/11/2018 MARKIE FREIRE MD, Ot Z80.0 FAMILY HISTORY OF MALIGNANT NEOPLASM OF 09/11/2018 MARKIE FREIRE MD Ot Z80.42 FAMILY HISTORY OF MALIGNANT NEOPLASM OF 09/11/2018 MARKIE FREIRE MD Ot Z82.49 FAMILY HX OF ISCHEM HEART DIS AND OTH DI 09/11/2018 MARKIE FREIRE MD, Ot Z86.711 PERSONAL HISTORY OF PULMONARY EMBOLISM 09/11/2018 MARKIE FREIRE MD, Ot Z86.718 PERSONAL HISTORY OF OTHER VENOUS THROMBO 09/11/2018 MARKIE FREIRE MD Ot Z87.01 PERSONAL HISTORY OF PNEUMONIA (RECURRENT 09/11/2018 MARKIE FREIRE MD Ot Z87.440 PERSONAL HISTORY OF URINARY (TRACT) INFE 09/11/2018 MARKIE FREIRE MD, Ot Z87.81 PERSONAL HISTORY OF (HEALED) TRAUMATIC F 09/11/2018 MARKIE FREIRE MD, Ot Z88.8 ALLERGY STATUS TO [facility] DRUG/MEDS/BIOL SUB 09/11/2018 MARKIE FREIRE MD Ot Z95.0 PRESENCE OF CARDIAC PACEMAKER 09/11/2018 MARKIE FREIRE MD Ot Z95.1 PRESENCE OF AORTOCORONARY BYPASS GRAFT 09/13/2018 PATSY MCADAMS DO Gregory Ot Z01.818 ENCOUNTER FOR OTHER PREPROCEDURAL EXAMIN 09/13/2018 Gabrielle HINOJOSA MD, Ot I25.10 ATHSCL HEART DISEASE OF [place] CORONARY 09/13/2018 Gabrielle HINOJOSA MD Ot I42 .9 CARDIOMYOPATHY, UNSPECIFIED 09/13/2018 Gabrielle HINOJOSA MD, Ot N18 .9 CHRONIC KIDNEY DISEASE, UNSPECIFIED 09/13/2018 Gabrielle HINOJOSA MD, Ot Z95 .0 PRESENCE OF CARDIAC PACEMAKER 09/13/2018 PIEDAD RILEY MD Ot E11.9 TYPE 2 DIABETES MELLITUS WITHOUT COMPLIC 09/13/2018 PIEDAD RILEY MD Ot E78.00 PURE HYPERCHOLESTEROLEMIA, UNSPECIFIED 09/13/2018 PIEDAD RILEY MD Ot E78.5 HYPERLIPIDEMIA, UNSPECIFIED 09/13/2018 PIEDAD RILEY MD Ot I10 ESSENTIAL (PRIMARY) HYPERTENSION 09/13/2018 PIEDAD RILEY MD, Ot I25.10 ATHSCL HEART DISEASE OF [place] CORONARY 09/13/2018 PIEDAD RILEY MD, Ot I42.9 CARDIOMYOPATHY, UNSPECIFIED 09/13/2018 PIEDAD RILEY MD Ot I48.91 UNSPECIFIED ATRIAL FIBRILLATION 09/13/2018 PIEDAD RILEY MD, Ot K21.9 GASTRO-ESOPHAGEAL REFLUX DISEASE WITHOUT 09/13/2018 PIEDAD RILEY MD Ot N39.0 URINARY TRACT INFECTION, SITE NOT SPECIF 09/13/2018 PIEDAD RILEY MD, Ot N40.0 BENIGN PROSTATIC HYPERPLASIA WITHOUT LOW 09/13/2018 PIEDAD RILEY MD, Ot R07.9 CHEST PAIN, UNSPECIFIED 09/13/2018 PIEDAD RILEY MD, Ot Z79.01 CORRECTION (CURRENT) USE OF ANTICOAGULANT 09/13/2018 PIEDAD RILEY MD Ot Z79.82 INVESTMENT MANAGER (CURRENT) USE OF ASPIRIN 09/13/2018 PIEDAD RILEY MD, Ot Z80.42 FAMILY HISTORY OF MALIGNANT NEOPLASM OF 09/13/2018 PIEDAD RILEY MD, Ot Z82.49 FAMILY HX OF ISCHEM HEART DIS AND OTH DI 09/13/2018 PIEDAD RILEY MD Ot Z86.711 PERSONAL HISTORY OF PULMONARY EMBOLISM 09/13/2018 PIEDAD RILEY MD, Ot Z86.718 PERSONAL HISTORY OF OTHER VENOUS THROMBO 09/13/2018 PIEDAD RILEY MD, Ot Z87.01 PERSONAL HISTORY OF PNEUMONIA (RECURRENT 09/13/2018 PIEDAD RILEY MD, Ot Z87.19 PERSONAL HISTORY OF OTHER DISEASES OF TH 09/13/2018 PIEDAD RILEY MD, Ot Z88.8 ALLERGY STATUS TO [facility] DRUG/MEDS/BIOL SUB 09/13/2018 PIEDAD RILEY MD Ot Z95.0 PRESENCE OF CARDIAC PACEMAKER 09/13/2018 PIEDAD RILEY MD Ot Z95.1 PRESENCE OF AORTOCORONARY BYPASS GRAFT 09/16/2018 DEBBIE HOPPER DO Ot E78.00 PURE HYPERCHOLESTEROLEMIA, UNSPECIFIED 09/16/2018 SILAS HOPPER DOI Ot I12.9 HYPERTENSIVE CHRONIC KIDNEY DISEASE W ST 09/16/2018 SILAS HOPEPR DOI Ot I25.10 ATHSCL HEART DISEASE OF [place] CORONARY 09/16/2018 DEBBIE HOPPER DO Ot I25.5 ISCHEMIC CARDIOMYOPATHY 09/16/2018 SILAS HOPPER DOI Ot I35.0 NONRHEUMATIC AORTIC (VALVE) STENOSIS 09/16/2018 SILAS HOPPER DOI Ot I48.91 UNSPECIFIED ATRIAL FIBRILLATION 09/16/2018 SILAS HOPPER DOI Ot K21.9 GASTRO-ESOPHAGEAL REFLUX DISEASE WITHOUT 09/16/2018 SILAS HOPPER DOI Ot K59.09 OTHER CONSTIPATION 09/16/2018 WARD EPSTEIN DEBBIE Ot N18.4 CHRONIC KIDNEY DISEASE, STAGE 4 (SEVERE) 09/16/2018 DEBBIE HOPPER DO Ot R01.1 CARDIAC MURMUR, UNSPECIFIED 09/16/2018 SILAS HOPPER DOI Ot R07.9 CHEST PAIN, UNSPECIFIED 09/16/2018 DEBBIE HOPPER DO Ot Z79.82 CORRECTION (CURRENT) USE OF ASPIRIN 09/16/2018 DEBBIE HOPPER DO Ot Z79.89 9 OTHER INVESTMENT MANAGER (CURRENT) DRUG THERAPY 09/16/2018 DEBBIE HOPPER DO Ot Z86.71 1 PERSONAL HISTORY OF PULMONARY EMBOLISM 09/16/2018 DEBBIE HOPPER DO Ot Z86.71 8 PERSONAL HISTORY OF OTHER VENOUS THROMBO 09/16/2018 DEBBIE HOPPER DO Ot Z87.44 0 PERSONAL HISTORY OF URINARY (TRACT) INFE 09/16/2018 DEBBIE HOPPER DO Ot Z95.0 PRESENCE OF CARDIAC PACEMAKER 09/16/2018 DEBBIE HOPPER DO Ot Z95.1 PRESENCE OF AORTOCORONARY BYPASS GRAFT 09/18/2018 PIEDAD RILEY MD Ot E11.9 TYPE 2 DIABETES MELLITUS WITHOUT COMPLIC 09/18/2018 PIEDAD RILEY MD Ot E78.00 PURE HYPERCHOLESTEROLEMIA, UNSPECIFIED 09/18/2018 PIEDAD RILEY MD Ot E78.5 HYPERLIPIDEMIA, UNSPECIFIED 09/18/2018 PIEDAD RILEY MD Ot I10 ESSENTIAL (PRIMARY) HYPERTENSION 09/18/2018 PIEDAD RILEY MD Ot I25.10 ATHSCL HEART DISEASE OF [place] CORONARY 09/18/2018 PIEDAD RILEY MD Ot I42.9 CARDIOMYOPATHY, UNSPECIFIED 09/18/2018 PIEDAD RILEY MD Ot I48.91 UNSPECIFIED ATRIAL FIBRILLATION 09/18/2018 PIEDAD RILEY MD Ot K21.9 GASTRO-ESOPHAGEAL REFLUX DISEASE WITHOUT 09/18/2018 PIEDAD RILEY MD Ot N39.0 URINARY TRACT INFECTION, SITE NOT SPECIF 09/18/2018 PIEDAD RILEY MD Ot N40.0 BENIGN PROSTATIC HYPERPLASIA WITHOUT LOW 09/18/2018 PIEDAD RILEY MD Ot R07.9 CHEST PAIN, UNSPECIFIED 09/18/2018 PIEDAD RILEY MD Ot Z79.01 INVESTMENT MANAGER (CURRENT) USE OF ANTICOAGULANT 09/18/2018 PIEDAD RILEY MD Ot Z79.82 CORRECTION (CURRENT) USE OF ASPIRIN 09/18/2018 PIEDAD RILEY MD, Ot Z80.42 FAMILY HISTORY OF MALIGNANT NEOPLASM OF 09/18/2018 PIEDAD RILEY MD, Ot Z82.49 FAMILY HX OF ISCHEM HEART DIS AND OTH DI 09/18/2018 PIEDAD RILEY MD, Ot Z86.711 PERSONAL HISTORY OF PULMONARY EMBOLISM 09/18/2018 PIEDAD RILEY MD, Ot Z86.718 PERSONAL HISTORY OF OTHER VENOUS THROMBO 09/18/2018 PIEDAD RILEY MD, Ot Z87.01 PERSONAL HISTORY OF PNEUMONIA (RECURRENT 09/18/2018 PIEDAD RILEY MD, Ot Z87.19 PERSONAL HISTORY OF OTHER DISEASES OF TH 09/18/2018 PIEDAD RILEY MD, Ot Z88.8 ALLERGY STATUS TO [facility] DRUG/MEDS/BIOL SUB 09/18/2018 PIEDAD RILEY MD, Ot Z95.0 PRESENCE OF CARDIAC PACEMAKER 09/18/2018 PIEDAD RILEY MD, Ot Z95.1 PRESENCE OF AORTOCORONARY BYPASS GRAFT 10/12/2018 PATSY MCADAMS DO Ot Z01.818 ENCOUNTER FOR OTHER PREPROCEDURAL EXAMIN 10/20/2018 PATSY MCADAMS DO Ot E78. 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 10 ATHSCL HEART DISEASE OF [place] CORONARY 10/20/2018 PATSY MCADAMS DO Ot I50. 22 CHRONIC SYSTOLIC (CONGESTIVE) HEART FAIL 10/20/2018 PATSY MCADAMS DO Ot K40. 90 UNIL INGUINAL HERNIA, W/O OBST OR GANGR, 10/20/2018 PATSY MCADAMS DO Ot N18. 9 CHRONIC KIDNEY DISEASE, UNSPECIFIED 10/20/2018 PATSY MCADAMS DO Ot N31. 9 NEUROMUSCULAR DYSFUNCTION OF BLADDER, UN 10/20/2018 PATSY MCADAMS DO Ot Z11. 2 ENCOUNTER FOR SCREENING FOR OTHER BACTER 10/20/2018 PATSY MCADAMS DO Ot Z79. 01 INVESTMENT MANAGER (CURRENT) USE OF ANTICOAGULANT 10/20/2018 PATSY MCADAMS DO Ot Z79. 02 CORRECTION (CURRENT) USE OF ANTITHROMBOTI 10/20/2018 PATSY MCADAMS DO Ot Z79. 82 INVESTMENT MANAGER (CURRENT) USE OF ASPIRIN 10/20/2018 PATSY MCADAMS DO Ot Z79.899 OTHER INVESTMENT MANAGER (CURRENT) DRUG THERAPY 10/20/2018 PATSY MCADAMS DO, Ot Z86.711 PERSONAL HISTORY OF PULMONARY EMBOLISM 10/20/2018 PATSY MCADAMS DO Ot Z86.718 PERSONAL HISTORY OF OTHER VENOUS THROMBO 10/20/2018 PATSY MCADAMS DO Ot Z95. 0 PRESENCE OF CARDIAC PACEMAKER 10/20/2018 PATSY MCADAMS DO Ot Z95. 1 PRESENCE OF AORTOCORONARY BYPASS GRAFT 10/24/2018 PATSY MCADAMS DO Ot E78. 5 HYPERLIPIDEMIA, UNSPECIFIED 10/24/2018 PATSY MCADAMS DO Ot I08. 3 COMB RHEUMATIC DISORD OF MITRAL, AORTIC 10/24/2018 PATSY MCADAMS DO Ot I25. 10 ATHSCL HEART DISEASE OF [place] CORONARY 10/24/2018 PATSY MCADAMS DO Ot I50. 22 CHRONIC SYSTOLIC (CONGESTIVE) HEART FAIL 10/24/2018 PATSY MCADAMS DO Ot K40. 90 UNIL INGUINAL HERNIA, W/O OBST OR GANGR, 10/24/2018 PATSY MCADAMS DO Ot N18. 9 CHRONIC KIDNEY DISEASE, UNSPECIFIED 10/24/2018 PATSY MCADAMS DO Ot N31. 9 NEUROMUSCULAR DYSFUNCTION OF BLAD[place], UN 10/24/2018 PATSY MCADAMS DO Ot Z11. 2 ENCOUNTER FOR SCREENING FOR OTHER BACTER 10/24/2018 PATSY MCADAMS DO Ot Z79. 01 CORRECTION (CURRENT) USE OF ANTICOAGULANT 10/24/2018 PATSY MCADAMS DO Ot Z79. 02 INVESTMENT MANAGER (CURRENT) USE OF ANTITHROMBOTI 10/24/2018 PATSY MCADAMS DO Ot Z79. 82 CORRECTION (CURRENT) USE OF ASPIRIN 10/24/2018 PATSY MCADAMS DO Ot Z79.899 OTHER INVESTMENT MANAGER (CURRENT) DRUG THERAPY 10/24/2018 PATSY MCADAMS DO, Ot Z86.711 PERSONAL HISTORY OF PULMONARY EMBOLISM 10/24/2018 PATSY MCADAMS DO Ot Z86.718 PERSONAL HISTORY OF OTHER VENOUS THROMBO 10/24/2018 PATSY MCADAMS DO Ot Z95. 0 PRESENCE OF CARDIAC PACEMAKER 10/24/2018 PATSY MCADAMS DO Ot Z95. 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, AORTIC 11/10/2018 Gabrielle HINOJOSA MD Ot I25.10 ATHSCL HEART DISEASE OF [place] CORONARY 11/10/2018 Gabrielle HINOJOSA MD Ot I25 .5 ISCHEMIC CARDIOMYOPATHY 11/10/2018 Gabrielle HINOJOSA MD Ot I44 .0 ATRIOVENTRICULAR BLOCK, FIRST DEGREE 11/10/2018 Gabrielle HINOJOSA MD Ot I44 .7 LEFT BUNDLE-BRANCH BLOCK, UNSPECIFIED 11/10/2018 Gabrielle HINOJOSA MD Ot I50 .9 HEART FAILURE, UNSPECIFIED 11/10/2018 Gabrielle HINOJOSA MD Ot I63 .9 CEREBRAL INFARCTION, UNSPECIFIED 11/10/2018 Gabrielle HINOJOSA MD Ot Z79.82 CORRECTION (CURRENT) USE OF ASPIRIN 11/10/2018 Gabrielle HINOJOSA MD Ot Z79.899 OTHER INVESTMENT MANAGER (CURRENT) DRUG THERAPY 11/10/2018 Gabrielle HINOJOSA MD Ot Z80 .9 FAMILY HISTORY OF MALIGNANT NEOPLASM, UN 11/10/2018 Gabrielle HINOJOSA MD Ot Z82 .3 FAMILY HISTORY OF STROKE 11/10/2018 Gabrielle HINOJOSA MD Ot Z82.49 FAMILY HX OF ISCHEM HEART DIS AND OTH DI 11/10/2018 Gabrielle HINOJOSA MD Ot Z86.718 PERSONAL HISTORY OF OTHER VENOUS THROMBO 11/10/2018 Gabrielle HINOJOSA MD Ot Z88 .8 ALLERGY STATUS TO [facility] DRUG/MEDS/BIOL SUB 11/10/2018 PHANI VILLA APRN Ot I25.10 ATHSCL HEART DISEASE OF [place] CORONARY 11/10/2018 PHANI VILLA APRN Ot I48.91 UNSPECIFIED ATRIAL FIBRILLATION 11/10/2018 PHANI VILLA APRN Ot I95 .1 ORTHOSTATIC HYPOTENSION 11/10/2018 PHANI VILLA APRN Ot K21 .9 GASTRO-ESOPHAGEAL REFLUX DISEASE WITHOUT 11/10/2018 PHANI VILLA APRN Ot N39 .0 URINARY TRACT INFECTION, SITE NOT SPECIF 11/10/2018 PHANI VILLA APRN Ot R53 .1 WEAKNESS 11/10/2018 PHANI VILLA APRN Ot Z77.22 CNTCT W AND EXPSR TO ENVIRON TOBACCO SMO 11/10/2018 PHANI VILLA APRN Ot Z79.02 CORRECTION (CURRENT) USE OF ANTITHROMBOTI 11/10/2018 PHANI VILLA APRN Ot Z79.82 CORRECTION (CURRENT) USE OF ASPIRIN 11/10/2018 PHANI VILLA APRN Ot Z80.42 FAMILY HISTORY OF MALIGNANT NEOPLASM OF 11/10/2018 PHANI VILLA APRN Ot Z80 .8 FAMILY HISTORY OF MALIGNANT NEOPLASM OF 11/10/2018 PHANI VILLA APRN Ot Z82.49 FAMILY HX OF ISCHEM HEART DIS AND OTH DI 11/10/2018 PHANI VILLA APRN Ot Z86.711 PERSONAL HISTORY OF PULMONARY EMBOLISM 11/10/2018 PHANI VILLA APRN Ot Z86.718 PERSONAL HISTORY OF OTHER VENOUS THROMBO 11/10/2018 PHANI VILLA APRN Ot Z87.440 PERSONAL HISTORY OF URINARY (TRACT) INFE 11/10/2018 PHANI VILLA APRN Ot Z88 .8 ALLERGY STATUS TO [facility] DRUG/MEDS/BIOL SUB 11/10/2018 PHANI VILLA APRN Ot Z95 .0 PRESENCE OF CARDIAC PACEMAKER 11/10/2018 PHANI VILLA APRN Ot Z95 .1 PRESENCE OF AORTOCORONARY BYPASS GRAFT 11/14/2018 PHANI VILLA APRN Ot I25.10 ATHSCL HEART DISEASE OF [place] CORONARY 11/14/2018 PHANI VILLA APRN Ot I48.91 UNSPECIFIED ATRIAL FIBRILLATION 11/14/2018 PHANI VILLA APRN Ot I95 .1 ORTHOSTATIC HYPOTENSION 11/14/2018 PHANI VILLA APRN Ot K21 .9 GASTRO-ESOPHAGEAL REFLUX DISEASE WITHOUT 11/14/2018 PHANI VILLA APRN Ot N39 .0 URINARY TRACT INFECTION, SITE NOT SPECIF 11/14/2018 PHANI VILLA APRN Ot R53 .1 WEAKNESS 11/14/2018 PHANI VILLA APRN Ot Z77.22 CNTCT W AND EXPSR TO ENVIRON TOBACCO SMO 11/14/2018 PHANI VILLA APRN Ot Z79.02 CORRECTION (CURRENT) USE OF ANTITHROMBOTI 11/14/2018 PHANI VILLA APRN Ot Z79.82 INVESTMENT MANAGER (CURRENT) USE OF ASPIRIN 11/14/2018 PHANI VILLA APRN Ot Z80.42 FAMILY HISTORY OF MALIGNANT NEOPLASM OF 11/14/2018 PHANI VILLA APRN Ot Z80 .8 FAMILY HISTORY OF MALIGNANT NEOPLASM OF 11/14/2018 PHANI VILLA APRN Ot Z82.49 FAMILY HX OF ISCHEM HEART DIS AND OTH DI 11/14/2018 PHANI VILLA APRN Ot Z86.711 PERSONAL HISTORY OF PULMONARY EMBOLISM 11/14/2018 PHANI VILLA APRN Ot Z86.718 PERSONAL HISTORY OF OTHER VENOUS THROMBO 11/14/2018 PHANI VILLA APRN Ot Z87.440 PERSONAL HISTORY OF URINARY (TRACT) INFE 11/14/2018 PHANI VILLA APRN Ot Z88 .8 ALLERGY STATUS TO [facility] DRUG/MEDS/BIOL SUB 11/14/2018 PHANI VILLA APRN Ot Z95 .0 PRESENCE OF CARDIAC PACEMAKER 11/14/2018 PHANI VILLA APRN Ot Z95 .1 PRESENCE OF AORTOCORONARY BYPASS GRAFT 11/15/2018 Gabrielle HINOJOSA MD Ot 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, AORTIC 11/15/2018 Gabrielle HINOJOSA MD Ot I25.10 ATHSCL HEART DISEASE OF [place] CORONARY 11/15/2018 Gabrielle HINOJOSA MD Ot I25 .5 ISCHEMIC CARDIOMYOPATHY 11/15/2018 Gabrielle HINOJOSA MD Ot I44 .0 ATRIOVENTRICULAR BLOCK, FIRST DEGREE 11/15/2018 Gabrielle HINOJOSA MD Ot I44 .7 LEFT BUNDLE-BRANCH BLOCK, UNSPECIFIED 11/15/2018 Gabrielle HINOJOSA MD Ot I50 .9 HEART FAILURE, UNSPECIFIED 11/15/2018 Gabrielle HINOJOSA MD Ot I63 .9 CEREBRAL INFARCTION, UNSPECIFIED 11/15/2018 Gabrielle HINOJOSA MD Ot Z79.82 INVESTMENT MANAGER (CURRENT) USE OF ASPIRIN 11/15/2018 Gabrielle HINOJOSA MD Ot Z79.899 OTHER INVESTMENT MANAGER (CURRENT) DRUG THERAPY 11/15/2018 Gabrielle HINOJOSA MD, Ot Z80 .9 FAMILY HISTORY OF MALIGNANT NEOPLASM, UN 11/15/2018 Gabrielle HINOJOSA MD, Ot Z82 .3 FAMILY HISTORY OF STROKE 11/15/2018 Gabrielle HINOJOSA MD Ot Z82.49 FAMILY HX OF ISCHEM HEART DIS AND OTH DI 11/15/2018 Gabrielle HINOJOSA MD Ot Z86.718 PERSONAL HISTORY OF OTHER VENOUS THROMBO 11/15/2018 Gabrielle HINOJOSA MD Ot Z88 .8 ALLERGY STATUS TO [facility] DRUG/MEDS/BIOL SUB 12/11/2018 PHANI VILLA APRN Ot I25.10 ATHSCL HEART DISEASE OF [place] CORONARY 12/11/2018 PHANI VILLA APRN Ot I48.91 UNSPECIFIED ATRIAL FIBRILLATION 12/11/2018 PHANI VILLA APRN Ot I95 .1 ORTHOSTATIC HYPOTENSION 12/11/2018 PHANI VILLA APRN Ot K21 .9 GASTRO-ESOPHAGEAL REFLUX DISEASE WITHOUT 12/11/2018 PHANI VILLA APRN Ot N39 .0 URINARY TRACT INFECTION, SITE NOT SPECIF 12/11/2018 PHANI VILLA APRN Ot R53 .1 WEAKNESS 12/11/2018 PHANI VILLA APRN Ot Z77.22 CNTCT W AND EXPSR TO ENVIRON TOBACCO SMO 12/11/2018 PHANI VILLA APRN Ot Z79.02 INVESTMENT MANAGER (CURRENT) USE OF ANTITHROMBOTI 12/11/2018 PHANI VILLA APRN Ot Z79.82 INVESTMENT MANAGER (CURRENT) USE OF ASPIRIN 12/11/2018 PHANI VILLA APRN Ot Z80.42 FAMILY HISTORY OF MALIGNANT NEOPLASM OF 12/11/2018 PHANI VILLA APRN Ot Z80 .8 FAMILY HISTORY OF MALIGNANT NEOPLASM OF 12/11/2018 PHANI VILLA APRN Ot Z82.49 FAMILY HX OF ISCHEM HEART DIS AND OTH DI 12/11/2018 PHANI VILLA APRN Ot Z86.711 PERSONAL HISTORY OF PULMONARY EMBOLISM 12/11/2018 PHANI VILLA APRN Ot Z86.718 PERSONAL HISTORY OF OTHER VENOUS THROMBO 12/11/2018 PHANI VILLA APRN Ot Z87.440 PERSONAL HISTORY OF URINARY (TRACT) INFE 12/11/2018 PHANI VILLA APRN Ot Z88 .8 ALLERGY STATUS TO [facility] DRUG/MEDS/BIOL SUB 12/11/2018 PHANI VILLA APRN Ot Z95 .0 PRESENCE OF CARDIAC PACEMAKER 12/11/2018 PHANI VILLA APRN Ot Z95 .1 PRESENCE OF AORTOCORONARY BYPASS GRAFT 02/05/2019 MARKIE FREIRE MD, Ot I25.10 ATHSCL HEART DISEASE OF [place] CORONARY 02/05/2019 MARKIE FREIRE MD, Ot I48.91 UNSPECIFIED ATRIAL FIBRILLATION 02/05/2019 MARKIE FREIRE MD, Ot K21.9 GASTRO-ESOPHAGEAL REFLUX DISEASE WITHOUT 02/05/2019 MARKIE FREIRE MD Ot N39.0 URINARY TRACT INFECTION, SITE NOT SPECIF 02/05/2019 MARKIE FREIRE MD, Ot R42 DIZZINESS AND GIDDINESS 02/05/2019 MARKIE FREIRE MD Ot Z79.02 INVESTMENT MANAGER (CURRENT) USE OF ANTITHROMBOTI 02/05/2019 MARKIE FREIRE MD Ot Z79.82 CORRECTION (CURRENT) USE OF ASPIRIN 02/05/2019 MARKIE FREIRE MD Ot Z80.0 FAMILY HISTORY OF MALIGNANT NEOPLASM OF 02/05/2019 MARKIE FREIRE MD Ot Z80.42 FAMILY HISTORY OF MALIGNANT NEOPLASM OF 02/05/2019 MARKIE FREIRE MD Ot Z82.49 FAMILY HX OF ISCHEM HEART DIS AND OTH DI 02/05/2019 MARKIE FREIRE MD Ot Z86.711 PERSONAL HISTORY OF PULMONARY EMBOLISM 02/05/2019 MARKIE FREIRE MD Ot Z86.718 PERSONAL HISTORY OF OTHER VENOUS THROMBO 02/05/2019 MARKIE FREIRE MD Ot Z88.8 ALLERGY STATUS TO [facility] DRUG/MEDS/BIOL SUB 02/05/2019 MARKIE FREIRE MD Ot Z95.0 PRESENCE OF CARDIAC PACEMAKER 02/05/2019 MARKIE FREIRE MD Ot Z95.1 PRESENCE OF AORTOCORONARY BYPASS GRAFT Procedures Code Description Performed By Per nickolas On [id number] FL UOROSCOPY OF MULT COR ART USING L OSM 07/08/2016 [id number] ME ASURE OF CARDIAC SAMPL PRESSURE, L H 09/10/2016 [id number] FL UOROSCOPY OF MULT COR ART USING L OSM 09/10/2016 [id number] FL UOROSCOPY OF MULT COR A GRAFT USING L 09/10/2016 [id number] FL UOROSCOPY OF LEFT HEART USING LOW OSMO 09/10/2016 [id number] FL UOROSCOPY OF L INT MAMM GRAFT USING L 09/10/2016 [id number] RE PAIR ABDOMINAL WALL, PERCUTANEOUS ENDO 09/19/2017 [id number] SWANSON PPLEMENT ABDOMINAL WALL WITH SYNTH SUB 09/19/2017 [id number] ME ASURE OF CARDIAC SAMPL PRESSURE, L H 07/18/2018 [id number] FL UOROSCOPY OF MULT COR ART USING L OSM 07/18/2018 [id number] FL UOROSCOPY OF MULT COR A GRAFT USING L 07/18/2018 [id number] FL UOROSCOPY OF LEFT HEART USING LOW OSMO 07/18/2018 [id number] FL UOROSCOPY OF L INT MAMM GRAFT USING L 07/18/2018 [id number] FL UOROSCOPY OF THORACIC AORTA USING LOW 07/18/2018 [id number] FL UOROSCOPY OF R LOW EXTREM VEIN USING L 07/18/2018 Results Test Result Range Complete urinalysis with reflex to cultu re - 10/24/15 02:18 Urine color determination YELLOW NRG Urine clarity determination CLEAR NR G Urine pH measurement by test strip 6 5-9 Specific gravity of urine by test strip 1.015 1.016-1.022 Urine protein assay by test strip, semi-quantitative 1+ NEGATIVE Urine glucose detection by automated test strip NE GATIVE NEGATIVE Erythrocytes detection in urine sediment by light micr oscopy 5+ NEGATIVE Urine ketones detection by automated test strip NE GATIVE NEGATIVE Urine nitrite detection by test strip POSITIVE NEGATIVE Urine total bilirubin detection by test strip NEGA TIVE NEGATIVE Urine urobilinogen measurement by automated test strip (mass/volume) NORMAL NORMAL Urine leukocyte esterase detection by dipstick 3+ NEGATIVE Automated urine sediment erythrocyte cou nt by microscopy (number/high power field) [HPF] NRG Automated urine sediment leukocyte count by microscopy (number/high power field) [HPF] NRG Bacteria detection in urine sediment by light microsco py FEW NRG Squamous epithelial cells detection in u rine sediment by light microscopy 0-2 NRG Crystals detection in urine sediment by light microsco py NONE NRG Casts detection in urine sediment by light microscopy NONE NRG Mucus detection in urine sediment by light microscopy NEGATIVE NRG Complete urinalysis with reflex to culture YES NRG Bacterial urine culture - 10/24/15 02:18 Bacterial urine culture [id number] NRG COLONY COUNT 10,000/ML - 100,000/ML NRG FTX;REPORTABLE SENSITIVITY REPORTED AT 0953, 16 NRG Bacterial susceptibility panel - 6 02:18 Gentamicin susceptibility test by minimum inhibitory c oncentration R NRG Trimethoprim/sulfamethoxazole susceptibi lity test by minimum inhibitoryconcentration <= NRG Ampicillin susceptibility test by minimum inhibitory c oncentration >= NRG Tobramycin susceptibility test by minimum inhibitory c oncentration R NRG Cefazolin susceptibility test by minimum inhibitory co ncentration >= NRG Ceftriaxone susceptibility test by minimum inhibitory concentration <= NRG Ampicillin/sulbactam susceptibility test by minimum inhibitory concentration R NRG Piperacillin/tazobactam susceptibility t est by minimum inhibitory concentration <= NRG Ciprofloxacin susceptibility test by minimum inhibitor y concentration <= NRG Meropenem susceptibility test by minimum inhibitory co ncentration <= NRG Nitrofurantoin susceptibility test by mi nimum inhibitory concentration 256 NRG Aztreonam susceptibility test by minimum inhibitory co ncentration <= NRG Bacterial susceptibility panel - 6 02:18 Gentamicin susceptibility test by minimum inhibitory c oncentration S NRG Vancomycin susceptibility test by minimum inhibitory c oncentration 1 NRG Levofloxacin susceptibility test by minimum inhibitory concentration 1 NRG Tetracycline susceptibility test by minimum inhibitory concentration <= NRG Ampicillin susceptibility test by minimum inhibitory c oncentration <= NRG Nitrofurantoin susceptibility test by mi nimum inhibitory concentration <= NRG Linezolid susceptibility test by minimum inhibitory co ncentration 2 NRG Complete blood count (CBC) with automate d white blood cell (WBC) differential - 03/12/16 15:51 Blood leukocytes automated count (number/volume) 4.0 10*3/uL 4.3-11.0 Blood erythrocytes automated count (number/volume) 4.74 10*6/uL 4.35-5.85 Venous blood hemoglobin measurement (mass/volume) 14.6 g/dL 13.3-17.7 Blood hematocrit (volume fraction) 43 % 40-54 Automated erythrocyte mean corpuscular volume 92 [ foz_us] 80-99 Automated erythrocyte mean corpuscular h emoglobin (mass per erythrocyte) 31 pg 25-34 Automated erythrocyte mean corpuscular h emoglobin concentration measurement (mass/volume) 34 g/dL 32-36 Automated erythrocyte distribution width ratio 13. 7 % 10.0- 14.5 Automated blood platelet count (count/volume) 145 10*3/uL 130-400 Automated blood platelet mean volume measurement 11.0 [foz_us] 7.4-10.4 Automated blood neutrophils/100 leukocytes 39 % 42-75 Automated blood lymphocytes/100 leukocytes 33 % 12-44 Blood monocytes/100 leukocytes 27 % 0-12 Automated blood eosinophils/100 leukocytes 0 % 0-10 Automated blood basophils/100 leukocytes 1 % 0-10 Blood neutrophils automated count (number/volume) 1.6 10*3 1.8-7.8 Blood lymphocytes automated count (number/volume) 1.3 10*3 1.0-4.0 Blood monocytes automated count (number/volume) 1. 1 10*3 0.0-1.0 Automated eosinophil count 0.0 10*3/uL 0 .0-0.3 Automated blood basophil count (count/volume) 0.0 10*3/uL 0.0-0.1 PT panel in platelet poor plasma by coag ulation assay - 03/12/16 15:51 Prothrombin time (PT) in platelet poor plasma by coagu lation assay 15.0 s 12.2-14.7 INR in platelet poor plasma or blood by coagulation as say 1.2 0.8-1.4 Activated partial thromboplastin time (a PTT) in platelet poor plasma bycoagulation assay - 03/12/16 15:51 Activated partial thromboplastin time (a PTT) in platelet poor plasma bycoagulation assay 26 s 24-35 Blood manual differential performed dete ction - 03/12/16 15:51 Blood monocytes/100 leukocytes 4 % NRG Manual blood segmented neutrophils/100 leukocytes 43 % NRG Blood band neutrophils/100 leukocytes 1 % NRG Manual blood lymphocytes/100 leukocytes 49 % NRG Manual eosinophils/100 leukocytes in nose 0 % NR Manual blood basophils/100 leukocytes 0 % NRG Blood lymphocytes variant/100 leukocytes 3 % NR Blood erythrocyte morphology finding identification NORMAL NR Blood platelet clump detection by light microscopy [facility] Comprehensive metabolic panel - 03/12/16 15:51 Serum or plasma sodium measurement (moles/volume) 138 mmol/L 135-145 Serum or plasma potassium measurement (moles/volume) 4.7 mmol/L 3.6-5.0 Serum or plasma chloride measurement (moles/volume) 108 mmol/L 98-107 Carbon dioxide 21 mmol/L 21-32 Serum or plasma anion gap determination (moles/volume) 9 mmol/L 5-14 Serum or plasma urea nitrogen measurement (mass/volume ) 18 mg/dL 7-18 Serum or plasma creatinine measurement (mass/volume) 1.23 mg/dL 0.60-1.30 Serum or plasma urea nitrogen/creatinine mass ratio 15 NRG Serum or plasma creatinine measurement w ith calculation of estimated glomerular filtration rate 58 NRG Serum or plasma glucose measurement (mass/volume) 82 mg/dL 70-105 Serum or plasma calcium measurement (mass/volume) 9.0 mg/dL 8.5-10.1 Serum or plasma total bilirubin measurement (mass/volu me) 0.6 mg/dL 0.1-1.0 Serum or plasma alkaline phosphatase lindsay surement (enzymatic activity/volume) 94 U/L 40-136 Serum or plasma aspartate aminotransfera se measurement (enzymatic activity/volume) 25 U/L 5-34 Serum or plasma alanine aminotransferase measurement (enzymatic activity/volume) 24 U/L 0-55 Serum or plasma protein measurement (mass/volume) 6.9 g/dL 6.4-8.2 Serum or plasma albumin measurement (mass/volume) 4.1 g/dL 3.2-4.5 Magnesium - 03/12/16 15:51 Magnesium 2.2 mg/dL 1.8-2.4 Serum or plasma troponin i.cardiac measu rement (mass/volume) - 03/12/16 15:51 Serum or plasma troponin i.cardiac measurement (mass/v olume) < ng/mL <0.30 Myoglobin, serum - 03/12/16 15:51 Myoglobin, serum 69.8 ng/mL 10.0-92.0 Complete urinalysis with reflex to cultu re - 03/12/16 17:14 Urine color determination BROWN NRG Urine clarity determination VERY CLOUDY NRG Urine pH measurement by test strip 6 5-9 Specific gravity of urine by test strip 1.020 1.016-1.022 Urine protein assay by test strip, semi-quantitative 3+ NEGATIVE Urine glucose detection by automated test strip NE GATIVE NEGATIVE Erythrocytes detection in urine sediment by light micr oscopy 5+ NEGATIVE Urine ketones detection by automated test strip NE GATIVE NEGATIVE Urine nitrite detection by test strip POSITIVE NEGATIVE Urine total bilirubin detection by test strip NEGA TIVE NEGATIVE Urine urobilinogen measurement by automated test strip (mass/volume) 1 mg/dL NORMAL Urine leukocyte esterase detection by dipstick 3+ NEGATIVE Automated urine sediment erythrocyte cou nt by microscopy (number/high power field) TNTC NRG Automated urine sediment leukocyte count by microscopy (number/high power field) TNTC NRG Bacteria detection in urine sediment by light microsco py MODERATE NRG Crystals detection in urine sediment by light microsco py NONE NRG Casts detection in urine sediment by light microscopy NONE NRG Mucus detection in urine sediment by light microscopy NEGATIVE NRG Complete urinalysis with reflex to culture YES NRG Bacterial urine culture - 03/12/16 17:14 Bacterial urine culture [id number] NRG COLONY COUNT 10,000/ML - 100,000/ML NRG FTX;REPORTABLE SENSITIVITIES REPORTED 03/15 08:20 NRG Bacterial susceptibility panel - 7 17:14 Gentamicin susceptibility test by minimum inhibitory c oncentration 2 NRG Trimethoprim/sulfamethoxazole susceptibi lity test by minimum inhibitoryconcentration <= NRG Tobramycin susceptibility test by minimum inhibitory c oncentration 2 NRG Cefazolin susceptibility test by minimum inhibitory co ncentration >= NRG Ceftriaxone susceptibility test by minimum inhibitory concentration <= NRG Piperacillin/tazobactam susceptibility t est by minimum inhibitory concentration <= NRG Ciprofloxacin susceptibility test by minimum inhibitor y concentration <= NRG Meropenem susceptibility test by minimum inhibitory co ncentration <= NRG Nitrofurantoin susceptibility test by mi nimum inhibitory concentration 128 NRG Aztreonam susceptibility test by minimum inhibitory co ncentration <= NRG Bacterial susceptibility panel - 7 17:14 Gentamicin susceptibility test by minimum inhibitory c oncentration S NRG Vancomycin susceptibility test by minimum inhibitory c oncentration 1 NRG Levofloxacin susceptibility test by minimum inhibitory concentration 1 NRG Tetracycline susceptibility test by minimum inhibitory concentration <= NRG Ampicillin susceptibility test by minimum inhibitory c oncentration <= NRG Nitrofurantoin susceptibility test by mi nimum inhibitory concentration <= NRG Linezolid susceptibility test by minimum inhibitory co ncentration 2 NRG Complete blood count (CBC) with automate d white blood cell (WBC) differential - 07/07/16 16:30 Blood leukocytes automated count (number/volume) 8.3 10*3/uL 4.3-11.0 Blood erythrocytes automated count (number/volume) 4.44 10*6/uL 4.35-5.85 Venous blood hemoglobin measurement (mass/volume) 13.6 g/dL 13.3-17.7 Blood hematocrit (volume fraction) 40 % 40-54 Automated erythrocyte mean corpuscular volume 91 [ foz_us] 80-99 Automated erythrocyte mean corpuscular h emoglobin (mass per erythrocyte) 31 pg 25-34 Automated erythrocyte mean corpuscular h emoglobin concentration measurement (mass/volume) 34 g/dL 32-36 Automated erythrocyte distribution width ratio 13. 4 % 10.0- 14.5 Automated blood platelet count (count/volume) 172 10*3/uL 130-400 Automated blood platelet mean volume measurement 10.7 [foz_us] 7.4-10.4 Automated blood neutrophils/100 leukocytes 61 % 42-75 Automated blood lymphocytes/100 leukocytes 25 % 12-44 Blood monocytes/100 leukocytes 12 % 0-12 Automated blood eosinophils/100 leukocytes 2 % 0-10 Automated blood basophils/100 leukocytes 1 % 0-10 Blood neutrophils automated count (number/volume) 5.0 10*3 1.8-7.8 Blood lymphocytes automated count (number/volume) 2.1 10*3 1.0-4.0 Blood monocytes automated count (number/volume) 1. 0 10*3 0.0-1.0 Automated eosinophil count 0.1 10*3/uL 0 .0-0.3 Automated blood basophil count (count/volume) 0.1 10*3/uL 0.0-0.1 PT panel in platelet poor plasma by coag ulation assay - 07/07/16 16:30 Prothrombin time (PT) in platelet poor plasma by coagu lation assay 14.8 s 12.2-14.7 INR in platelet poor plasma or blood by coagulation as say 1.2 0.8-1.4 Activated partial thromboplastin time (a PTT) in platelet poor plasma bycoagulation assay - 07/07/16 16:30 Activated partial thromboplastin time (a PTT) in platelet poor plasma bycoagulation assay 28 s 24-35 Comprehensive metabolic panel - 07/07/16 16:30 Serum or plasma sodium measurement (moles/volume) 141 mmol/L 135-145 Serum or plasma potassium measurement (moles/volume) 4.6 mmol/L 3.6-5.0 Serum or plasma chloride measurement (moles/volume) 110 mmol/L 98-107 Carbon dioxide 21 mmol/L 21-32 Serum or plasma anion gap determination (moles/volume) 10 mmol/L 5-14 Serum or plasma urea nitrogen measurement (mass/volume ) 24 mg/dL 7-18 Serum or plasma creatinine measurement (mass/volume) 1.49 mg/dL 0.60-1.30 Serum or plasma urea nitrogen/creatinine mass ratio 16 NRG Serum or plasma creatinine measurement w ith calculation of estimated glomerular filtration rate 46 NRG Serum or plasma glucose measurement (mass/volume) 89 mg/dL 70-105 Serum or plasma calcium measurement (mass/volume) 9.2 mg/dL 8.5-10.1 Serum or plasma total bilirubin measurement (mass/volu me) 0.6 mg/dL 0.1-1.0 Serum or plasma alkaline phosphatase lindsay surement (enzymatic activity/volume) 98 U/L 40-136 Serum or plasma aspartate aminotransfera se measurement (enzymatic activity/volume) 16 U/L 5-34 Serum or plasma alanine aminotransferase measurement (enzymatic activity/volume) 11 U/L 0-55 Serum or plasma protein measurement (mass/volume) 6.7 g/dL 6.4-8.2 Serum or plasma albumin measurement (mass/volume) 4.0 g/dL 3.2-4.5 Magnesium - 07/07/16 16:30 Magnesium 2.3 mg/dL 1.8-2.4 Serum or plasma creatine kinase measurem ent (enzymatic activity/volume) - 07/07/16 16:30 Serum or plasma creatine kinase measurem ent (enzymatic activity/volume) 156 U/L 30-200 Serum or plasma creatine kinase MB measu rement (enzymatic activity/volume) - 07/07/16 16:30 Serum or plasma creatine kinase MB measu rement (enzymatic activity/volume) 4.4 ng/mL <6.6 Serum or plasma troponin i.cardiac measu rement (mass/volume) - 07/07/16 16:30 Serum or plasma troponin i.cardiac measurement (mass/v olume) < ng/mL <0.30 Serum or plasma lithium measurement (mol es/volume) - 07/07/16 16:30 BNP level 347.8 pg/mL <100.0 Serum or plasma amylase measurement (enz ymatic activity/volume) - 07/07/16 16:30 Serum or plasma amylase measurement (enzymatic activit y/volume) 111 U/L 25-125 Lipase - 07/07/16 16:30 Lipase 47 U/L 8-78 Serum or plasma thyrotropin measurement by detection limit <=0.05 miu/l (units/volume) - 07/07/16 16:30 Serum or plasma thyrotropin measurement by detection limit <=0.05 miu/l (units/volume) 1.40 u[iU]/mL 0.35-4.94 Serum or plasma troponin i.cardiac measu rement (mass/volume) - 07/07/16 22:50 Serum or plasma troponin i.cardiac measurement (mass/v olume) < ng/mL <0.30 Myoglobin, serum - 07/07/16 22:50 Myoglobin, serum 59.0 ng/mL 10.0-92.0 Complete urinalysis with reflex to cultu re - 07/07/16 23:05 Urine color determination YELLOW NRG Urine clarity determination SLIGHTLY CLOUDY NRG Urine pH measurement by test strip 6 5-9 Specific gravity of urine by test strip 1.015 1.016-1.022 Urine protein assay by test strip, semi-quantitative 2+ NEGATIVE Urine glucose detection by automated test strip NE GATIVE NEGATIVE Erythrocytes detection in urine sediment by light micr oscopy 4+ NEGATIVE Urine ketones detection by automated test strip NE GATIVE NEGATIVE Urine nitrite detection by test strip POSITIVE NEGATIVE Urine total bilirubin detection by test strip NEGA TIVE NEGATIVE Urine urobilinogen measurement by automated test strip (mass/volume) NORMAL NORMAL Urine leukocyte esterase detection by dipstick 3+ NEGATIVE Automated urine sediment erythrocyte cou nt by microscopy (number/high power field) [HPF] NRG Automated urine sediment leukocyte count by microscopy (number/high power field) > [HPF] NRG Bacteria detection in urine sediment by light microsco py FEW NRG Crystals detection in urine sediment by light microsco py NONE NRG Casts detection in urine sediment by light microscopy NONE NRG Mucus detection in urine sediment by light microscopy NEGATIVE NRG Complete urinalysis with reflex to culture YES NRG Bacterial urine culture - 07/07/16 23:05 Bacterial urine culture [id number] NRG COLONY COUNT 10,000/ML - 100,000/ML NRG FTX;REPORT[place]ITIVITIES [place] [address], 5-1 05-14 NRG URINE CULTURE RESULTS PLUS NRG Bacterial susceptibility panel - 23:05 Gentamicin susceptibility test by minimum inhibitory c oncentration <= NRG Trimethoprim/sulfamethoxazole susceptibi lity test by minimum inhibitoryconcentration <= NRG Ampicillin susceptibility test by minimum inhibitory c oncentration R NRG Tobramycin susceptibility test by minimum inhibitory c oncentration <= NRG Cefazolin susceptibility test by minimum inhibitory co ncentration >= NRG Ceftriaxone susceptibility test by minimum inhibitory concentration <= NRG Ampicillin/sulbactam susceptibility test by minimum inhibitory concentration <= NRG Piperacillin/tazobactam susceptibility t est by minimum inhibitory concentration <= NRG Ciprofloxacin susceptibility test by minimum inhibitor y concentration 0.5 NRG Meropenem susceptibility test by minimum inhibitory co ncentration <= NRG Nitrofurantoin susceptibility test by mi nimum inhibitory concentration R NRG Aztreonam susceptibility test by minimum inhibitory co ncentration <= NRG Bacterial susceptibility panel - 7 23:05 Gentamicin susceptibility test by minimum inhibitory c oncentration <= NRG Trimethoprim/sulfamethoxazole susceptibi lity test by minimum inhibitoryconcentration <= NRG Tobramycin susceptibility test by minimum inhibitory c oncentration <= NRG Cefazolin susceptibility test by minimum inhibitory co ncentration >= NRG Ceftriaxone susceptibility test by minimum inhibitory concentration <= NRG Piperacillin/tazobactam susceptibility t est by minimum inhibitory concentration <= NRG Ciprofloxacin susceptibility test by minimum inhibitor y concentration <= NRG Meropenem susceptibility test by minimum inhibitory co ncentration <= NRG Nitrofurantoin susceptibility test by mi nimum inhibitory concentration 256 NRG Aztreonam susceptibility test by minimum inhibitory co ncentration <= NRG Bacterial susceptibility panel - 7 23:05 Gentamicin susceptibility test by minimum inhibitory c oncentration S NRG Vancomycin susceptibility test by minimum inhibitory c oncentration 1 NRG Levofloxacin susceptibility test by minimum inhibitory concentration 2 NRG Tetracycline susceptibility test by minimum inhibitory concentration <= NRG Ampicillin susceptibility test by minimum inhibitory c oncentration <= NRG Ciprofloxacin susceptibility test by minimum inhibitor y concentration S NRG Nitrofurantoin susceptibility test by mi nimum inhibitory concentration <= NRG Linezolid susceptibility test by minimum inhibitory co ncentration 2 NRG Complete blood count (CBC) with automate d white blood cell (WBC) differential - 07/08/16 03:40 Blood leukocytes automated count (number/volume) 6.8 10*3/uL 4.3-11.0 Blood erythrocytes automated count (number/volume) 4.31 10*6/uL 4.35-5.85 Venous blood hemoglobin measurement (mass/volume) 13.1 g/dL 13.3-17.7 Blood hematocrit (volume fraction) 39 % 40-54 Automated erythrocyte mean corpuscular volume 91 [ foz_us] 80-99 Automated erythrocyte mean corpuscular h emoglobin (mass per erythrocyte) 30 pg 25-34 Automated erythrocyte mean corpuscular h emoglobin concentration measurement (mass/volume) 33 g/dL 32-36 Automated erythrocyte distribution width ratio 13. 4 % 10.0- 14.5 Automated blood platelet count (count/volume) 164 10*3/uL 130-400 Automated blood platelet mean volume measurement 10.6 [foz_us] 7.4-10.4 Automated blood neutrophils/100 leukocytes 57 % 42-75 Automated blood lymphocytes/100 leukocytes 29 % 12-44 Blood monocytes/100 leukocytes 11 % 0-12 Automated blood eosinophils/100 leukocytes 3 % 0-10 Automated blood basophils/100 leukocytes 1 % 0-10 Blood neutrophils automated count (number/volume) 3.9 10*3 1.8-7.8 Blood lymphocytes automated count (number/volume) 1.9 10*3 1.0-4.0 Blood monocytes automated count (number/volume) 0. 7 10*3 0.0-1.0 Automated eosinophil count 0.2 10*3/uL 0 .0-0.3 Automated blood basophil count (count/volume) 0.0 10*3/uL 0.0-0.1 Comprehensive metabolic panel - 07/08/16 03:40 Serum or plasma sodium measurement (moles/volume) 136 mmol/L 135-145 Serum or plasma potassium measurement (moles/volume) 4.3 mmol/L 3.6-5.0 Serum or plasma chloride measurement (moles/volume) 109 mmol/L 98-107 Carbon dioxide 18 mmol/L 21-32 Serum or plasma anion gap determination (moles/volume) 9 mmol/L 5-14 Serum or plasma urea nitrogen measurement (mass/volume ) 25 mg/dL 7-18 Serum or plasma creatinine measurement (mass/volume) 1.14 mg/dL 0.60-1.30 Serum or plasma urea nitrogen/creatinine mass ratio 22 NRG Serum or plasma creatinine measurement w ith calculation of estimated glomerular filtration rate > NRG Serum or plasma glucose measurement (mass/volume) 85 mg/dL 70-105 Serum or plasma calcium measurement (mass/volume) 8.9 mg/dL 8.5-10.1 Serum or plasma total bilirubin measurement (mass/volu me) 0.6 mg/dL 0.1-1.0 Serum or plasma alkaline phosphatase lindsay surement (enzymatic activity/volume) 88 U/L 40-136 Serum or plasma aspartate aminotransfera se measurement (enzymatic activity/volume) 15 U/L 5-34 Serum or plasma alanine aminotransferase measurement (enzymatic activity/volume) 10 U/L 0-55 Serum or plasma protein measurement (mass/volume) 6.2 g/dL 6.4-8.2 Serum or plasma albumin measurement (mass/volume) 3.7 g/dL 3.2-4.5 Lipid 1996 panel - 07/08/16 03:40 Serum or plasma triglyceride measurement (mass/volume) 102 mg/dL <150 Serum or plasma cholesterol measurement (mass/volume) 185 mg/dL < 200 Serum or plasma cholesterol in HDL measurement (mass/v olume) 53 mg/dL 40-60 Cholesterol in LDL [mass/volume] in serum or plasma by direct assay 119 mg/dL 1-129 Serum or plasma cholesterol in VLDL measurement (mass/ volume) 20 mg/dL 5-40 PT panel in platelet poor plasma by coag ulation assay - 07/08/16 10:30 Prothrombin time (PT) in platelet poor plasma by coagu lation assay 14.2 s 12.2-14.7 INR in platelet poor plasma or blood by coagulation as say 1.1 0.8-1.4 Activated partial thromboplastin time (a PTT) in platelet poor plasma bycoagulation assay - 07/08/16 10:30 Activated partial thromboplastin time (a PTT) in platelet poor plasma bycoagulation assay 29 s 24-35 Activated partial thromboplastin time (a PTT) in platelet poor plasma bycoagulation assay - 07/08/16 14:06 Activated partial thromboplastin time (a PTT) in platelet poor plasma bycoagulation assay 133 s 24-35 Activated partial thromboplastin time (a PTT) in platelet poor plasma bycoagulation assay - 07/08/16 16:36 Activated partial thromboplastin time (a PTT) in platelet poor plasma bycoagulation assay 98 s 24-35 Automated blood platelet count (count/vo lume) - 07/09/16 04:20 Automated blood platelet count (count/volume) 182 10*3/uL 130-400 Activated partial thromboplastin time (a PTT) in platelet poor plasma bycoagulation assay - 07/09/16 07:09 Activated partial thromboplastin time (a PTT) in platelet poor plasma bycoagulation assay 51 s 24-35 Complete blood count (CBC) with automate d white blood cell (WBC) differential - 09/08/16 17:31 Blood leukocytes automated count (number/volume) 6.7 10*3/uL 4.3-11.0 Blood erythrocytes automated count (number/volume) 3.47 10*6/uL 4.35-5.85 Venous blood hemoglobin measurement (mass/volume) 9.8 g/dL 13.3-17.7 Blood hematocrit (volume fraction) 32 % 40-54 Automated erythrocyte mean corpuscular volume 91 [ foz_us] 80-99 Automated erythrocyte mean corpuscular h emoglobin (mass per erythrocyte) 28 pg 25-34 Automated erythrocyte mean corpuscular h emoglobin concentration measurement (mass/volume) 31 g/dL 32-36 Automated erythrocyte distribution width ratio 14. 3 % 10.0- 14.5 Automated blood platelet count (count/volume) 328 10*3/uL 130-400 Automated blood platelet mean volume measurement 9.4 [foz_us] 7.4-10.4 Automated blood neutrophils/100 leukocytes 50 % 42-75 Automated blood lymphocytes/100 leukocytes 23 % 12-44 Blood monocytes/100 leukocytes 10 % 0-12 Automated blood eosinophils/100 leukocytes 17 % 0-10 Automated blood basophils/100 leukocytes 1 % 0-10 Blood neutrophils automated count (number/volume) 3.3 10*3 1.8-7.8 Blood lymphocytes automated count (number/volume) 1.5 10*3 1.0-4.0 Blood monocytes automated count (number/volume) 0. 7 10*3 0.0-1.0 Automated eosinophil count 1.1 10*3/uL 0 .0-0.3 Automated blood basophil count (count/volume) 0.1 10*3/uL 0.0-0.1 PT panel in platelet poor plasma by coag ulation assay - 09/08/16 17:31 Prothrombin time (PT) in platelet poor plasma by coagu lation assay 16.4 s 12.2-14.7 INR in platelet poor plasma or blood by coagulation as say 1.4 0.8-1.4 Activated partial thromboplastin time (a PTT) in platelet poor plasma bycoagulation assay - 09/08/16 17:31 Activated partial thromboplastin time (a PTT) in platelet poor plasma bycoagulation assay 32 s 24-35 Blood manual differential performed dete ction - 09/08/16 17:31 Blood monocytes/100 leukocytes 2 % NRG Manual blood segmented neutrophils/100 leukocytes 48 % NRG Blood band neutrophils/100 leukocytes 4 % NRG Manual blood lymphocytes/100 leukocytes 27 % NRG Manual eosinophils/100 leukocytes in nose 19 % NRG Manual blood basophils/100 leukocytes 0 % NRG Blood erythrocyte morphology finding identification NORMAL NRG Serum or plasma lithium measurement (mol es/volume) - 09/08/16 17:31 BNP level 233.1 pg/mL <100.0 Comprehensive metabolic panel - 09/08/16 18:10 Serum or plasma sodium measurement (moles/volume) 137 mmol/L 135-145 Serum or plasma potassium measurement (moles/volume) 4.5 mmol/L 3.6-5.0 Serum or plasma chloride measurement (moles/volume) 105 mmol/L 98-107 Carbon dioxide 25 mmol/L 21-32 Serum or plasma anion gap determination (moles/volume) 7 mmol/L 5-14 Serum or plasma urea nitrogen measurement (mass/volume ) 22 mg/dL 7-18 Serum or plasma creatinine measurement (mass/volume) 1.69 mg/dL 0.60-1.30 Serum or plasma urea nitrogen/creatinine mass ratio 13 NRG Serum or plasma creatinine measurement w ith calculation of estimated glomerular filtration rate 40 NRG Serum or plasma glucose measurement (mass/volume) 84 mg/dL 70-105 Serum or plasma calcium measurement (mass/volume) 8.3 mg/dL 8.5-10.1 Serum or plasma total bilirubin measurement (mass/volu me) 0.6 mg/dL 0.1-1.0 Serum or plasma alkaline phosphatase lindsay surement (enzymatic activity/volume) 117 U/L 40-136 Serum or plasma aspartate aminotransfera se measurement (enzymatic activity/volume) 14 U/L 5-34 Serum or plasma alanine aminotransferase measurement (enzymatic activity/volume) 13 U/L 0-55 Serum or plasma protein measurement (mass/volume) 6.0 g/dL 6.4-8.2 Serum or plasma albumin measurement (mass/volume) 3.2 g/dL 3.2-4.5 Magnesium - 09/08/16 18:10 Magnesium 1.8 mg/dL 1.8-2.4 Serum or plasma troponin i.cardiac measu rement (mass/volume) - 09/08/16 18:10 Serum or plasma troponin i.cardiac measurement (mass/v olume) 0.43 ng/mL <0.30 Myoglobin, serum - 09/08/16 18:10 Myoglobin, serum 50.5 ng/mL 10.0-92.0 Complete urinalysis with reflex to cultu re - 09/08/16 18:57 Urine color determination YELLOW NRG Urine clarity determination CLEAR NR G Urine pH measurement by test strip 6 5-9 Specific gravity of urine by test strip 1.010 1.016-1.022 Urine protein assay by test strip, semi-quantitative NEGATIVE NEGATIVE Urine glucose detection by automated test strip NE GATIVE NEGATIVE Erythrocytes detection in urine sediment by light micr oscopy NEGATIVE NEGATIVE Urine ketones detection by automated test strip NE GATIVE NEGATIVE Urine nitrite detection by test strip POSITIVE NEGATIVE Urine total bilirubin detection by test strip NEGA TIVE NEGATIVE Urine urobilinogen measurement by automated test strip (mass/volume) NORMAL NORMAL Urine leukocyte esterase detection by dipstick 3+ NEGATIVE Automated urine sediment erythrocyte cou nt by microscopy (number/high power field) NONE NRG Automated urine sediment leukocyte count by microscopy (number/high power field) [HPF] NRG Bacteria detection in urine sediment by light microsco py MODERATE NRG Crystals detection in urine sediment by light microsco py NONE NRG Casts detection in urine sediment by light microscopy NONE NRG Mucus detection in urine sediment by light microscopy NEGATIVE NRG Complete urinalysis with reflex to culture YES NRG Bacterial urine culture - 09/08/16 18:57 Bacterial urine culture [id number] NRG COLONY COUNT >100,000/ML NRG URINE CULTURE RESULTS UNLESS REQUESTED NRG Serum or plasma troponin i.cardiac measu rement (mass/volume) - 09/08/16 23:43 Serum or plasma troponin i.cardiac measurement (mass/v olume) 0.46 ng/mL <0.30 Complete blood count (CBC) with automate d white blood cell (WBC) differential - 09/09/16 06:11 Blood leukocytes automated count (number/volume) 6.3 10*3/uL 4.3-11.0 Blood erythrocytes automated count (number/volume) 3.33 10*6/uL 4.35-5.85 Venous blood hemoglobin measurement (mass/volume) 9.7 g/dL 13.3-17.7 Blood hematocrit (volume fraction) 31 % 40-54 Automated erythrocyte mean corpuscular volume 92 [ foz_us] 80-99 Automated erythrocyte mean corpuscular h emoglobin (mass per erythrocyte) 29 pg 25-34 Automated erythrocyte mean corpuscular h emoglobin concentration measurement (mass/volume) 32 g/dL 32-36 Automated erythrocyte distribution width ratio 14. 3 % 10.0- 14.5 Automated blood platelet count (count/volume) 336 10*3/uL 130-400 Automated blood platelet mean volume measurement 9.2 [foz_us] 7.4-10.4 Automated blood neutrophils/100 leukocytes 48 % 42-75 Automated blood lymphocytes/100 leukocytes 20 % 12-44 Blood monocytes/100 leukocytes 9 % 0-12 Automated blood eosinophils/100 leukocytes 22 % 0-10 Automated blood basophils/100 leukocytes 1 % 0-10 Blood neutrophils automated count (number/volume) 3.0 10*3 1.8-7.8 Blood lymphocytes automated count (number/volume) 1.3 10*3 1.0-4.0 Blood monocytes automated count (number/volume) 0. 5 10*3 0.0-1.0 Automated eosinophil count 1.4 10*3/uL 0 .0-0.3 Automated blood basophil count (count/volume) 0.1 10*3/uL 0.0-0.1 Comprehensive metabolic panel - 09/09/16 06:11 Serum or plasma sodium measurement (moles/volume) 138 mmol/L 135-145 Serum or plasma potassium measurement (moles/volume) 4.6 mmol/L 3.6-5.0 Serum or plasma chloride measurement (moles/volume) 105 mmol/L 98-107 Carbon dioxide 23 mmol/L 21-32 Serum or plasma anion gap determination (moles/volume) 10 mmol/L 5-14 Serum or plasma urea nitrogen measurement (mass/volume ) 20 mg/dL 7-18 Serum or plasma creatinine measurement (mass/volume) 1.46 mg/dL 0.60-1.30 Serum or plasma urea nitrogen/creatinine mass ratio 14 NRG Serum or plasma creatinine measurement w ith calculation of estimated glomerular filtration rate 47 NRG Serum or plasma glucose measurement (mass/volume) 86 mg/dL 70-105 Serum or plasma calcium measurement (mass/volume) 8.9 mg/dL 8.5-10.1 Serum or plasma total bilirubin measurement (mass/volu me) 0.7 mg/dL 0.1-1.0 Serum or plasma alkaline phosphatase lindsay surement (enzymatic activity/volume) 123 U/L 40-136 Serum or plasma aspartate aminotransfera se measurement (enzymatic activity/volume) 18 U/L 5-34 Serum or plasma alanine aminotransferase measurement (enzymatic activity/volume) 15 U/L 0-55 Serum or plasma protein measurement (mass/volume) 6.3 g/dL 6.4-8.2 Serum or plasma albumin measurement (mass/volume) 3.3 g/dL 3.2-4.5 Lipid 1996 panel - 09/09/16 06:11 Serum or plasma triglyceride measurement (mass/volume) 52 mg/dL <150 Serum or plasma cholesterol measurement (mass/volume) 153 mg/dL < 200 Serum or plasma cholesterol in HDL measurement (mass/v olume) 49 mg/dL 40-60 Cholesterol in LDL [mass/volume] in serum or plasma by direct assay 89 mg/dL 1-129 Serum or plasma cholesterol in VLDL measurement (mass/ volume) 10 mg/dL 5-40 Serum or plasma troponin i.cardiac measu rement (mass/volume) - 09/09/16 06:11 Serum or plasma troponin i.cardiac measurement (mass/v olume) 0.51 ng/mL <0.30 Automated blood complete blood count (he mogram) panel - 09/10/16 10:50 Blood leukocytes automated count (number/volume) 5.7 10*3/uL 4.3-11.0 Blood erythrocytes automated count (number/volume) 3.68 10*6/uL 4.35-5.85 Venous blood hemoglobin measurement (mass/volume) 10.4 g/dL 13.3-17.7 Blood hematocrit (volume fraction) 34 % 40-54 Automated erythrocyte mean corpuscular volume 91 [ foz_us] 80-99 Automated erythrocyte mean corpuscular h emoglobin (mass per erythrocyte) 28 pg 25-34 Automated erythrocyte mean corpuscular h emoglobin concentration measurement (mass/volume) 31 g/dL 32-36 Automated erythrocyte distribution width ratio 14. 2 % 10.0- 14.5 Automated blood platelet count (count/volume) 318 10*3/uL 130-400 Automated blood platelet mean volume measurement 9.0 [foz_us] 7.4-10.4 Comprehensive metabolic panel - 09/10/16 10:50 Serum or plasma sodium measurement (moles/volume) 136 mmol/L 135-145 Serum or plasma potassium measurement (moles/volume) 4.8 mmol/L 3.6-5.0 Serum or plasma chloride measurement (moles/volume) 105 mmol/L 98-107 Carbon dioxide 26 mmol/L 21-32 Serum or plasma anion gap determination (moles/volume) 5 mmol/L 5-14 Serum or plasma urea nitrogen measurement (mass/volume ) 17 mg/dL 7-18 Serum or plasma creatinine measurement (mass/volume) 1.15 mg/dL 0.60-1.30 Serum or plasma urea nitrogen/creatinine mass ratio 15 NRG Serum or plasma creatinine measurement w ith calculation of estimated glomerular filtration rate > NRG Serum or plasma glucose measurement (mass/volume) 90 mg/dL 70-105 Serum or plasma calcium measurement (mass/volume) 9.0 mg/dL 8.5-10.1 Serum or plasma total bilirubin measurement (mass/volu me) 0.7 mg/dL 0.1-1.0 Serum or plasma alkaline phosphatase lindsay surement (enzymatic activity/volume) 123 U/L 40-136 Serum or plasma aspartate aminotransfera se measurement (enzymatic activity/volume) 16 U/L 5-34 Serum or plasma alanine aminotransferase measurement (enzymatic activity/volume) 14 U/L 0-55 Serum or plasma protein measurement (mass/volume) 6.1 g/dL 6.4-8.2 Serum or plasma albumin measurement (mass/volume) 3.2 g/dL 3.2-4.5 Automated blood complete blood count (he mogram) panel - 09/11/16 03:48 Blood leukocytes automated count (number/volume) 6.0 10*3/uL 4.3-11.0 Blood erythrocytes automated count (number/volume) 3.61 10*6/uL 4.35-5.85 Venous blood hemoglobin measurement (mass/volume) 10.3 g/dL 13.3-17.7 Blood hematocrit (volume fraction) 33 % 40-54 Automated erythrocyte mean corpuscular volume 91 [ foz_us] 80-99 Automated erythrocyte mean corpuscular h emoglobin (mass per erythrocyte) 29 pg 25-34 Automated erythrocyte mean corpuscular h emoglobin concentration measurement (mass/volume) 31 g/dL 32-36 Automated erythrocyte distribution width ratio 14. 2 % 10.0- 14.5 Automated blood platelet count (count/volume) 296 10*3/uL 130-400 Automated blood platelet mean volume measurement 9.7 [foz_us] 7.4-10.4 Whole blood basic metabolic panel - 08/28 07/14 03:48 Serum or plasma sodium measurement (moles/volume) 135 mmol/L 135-145 Serum or plasma potassium measurement (moles/volume) 4.4 mmol/L 3.6-5.0 Serum or plasma chloride measurement (moles/volume) 104 mmol/L 98-107 Carbon dioxide 21 mmol/L 21-32 Serum or plasma anion gap determination (moles/volume) 10 mmol/L 5-14 Serum or plasma urea nitrogen measurement (mass/volume ) 21 mg/dL 7-18 Serum or plasma creatinine measurement (mass/volume) 1.18 mg/dL 0.60-1.30 Serum or plasma urea nitrogen/creatinine mass ratio 18 NRG Serum or plasma creatinine measurement w ith calculation of estimated glomerular filtration rate > NRG Serum or plasma glucose measurement (mass/volume) 88 mg/dL 70-105 Serum or plasma calcium measurement (mass/volume) 8.7 mg/dL 8.5-10.1 Complete urinalysis with reflex to cultu re - 09/16/16 04:48 Urine color determination YELLOW NRG Urine clarity determination SLIGHTLY CLOUDY NRG Urine pH measurement by test strip 6 5-9 Specific gravity of urine by test strip 1.020 1.016-1.022 Urine protein assay by test strip, semi-quantitative 2+ NEGATIVE Urine glucose detection by automated test strip NE GATIVE NEGATIVE Erythrocytes detection in urine sediment by light micr oscopy 5+ NEGATIVE Urine ketones detection by automated test strip NE GATIVE NEGATIVE Urine nitrite detection by test strip POSITIVE NEGATIVE Urine total bilirubin detection by test strip NEGA TIVE NEGATIVE Urine urobilinogen measurement by automated test strip (mass/volume) NORMAL NORMAL Urine leukocyte esterase detection by dipstick 3+ NEGATIVE Automated urine sediment erythrocyte cou nt by microscopy (number/high power field) [HPF] NRG Automated urine sediment leukocyte count by microscopy (number/high power field) [HPF] NRG Bacteria detection in urine sediment by light microsco py LARGE NRG Squamous epithelial cells detection in u rine sediment by light microscopy NONE NRG Crystals detection in urine sediment by light microsco py NONE NRG Casts detection in urine sediment by light microscopy NONE NRG Mucus detection in urine sediment by light microscopy NEGATIVE NRG Complete urinalysis with reflex to culture YES NRG Bacterial urine culture - 09/16/16 04:48 Bacterial urine culture [id number] NRG COLONY COUNT 10,000/ML - 100,000/ML NRG FTX;REPORTABLE SENSITIVITY REPORTED 09/18 09:20 NR Bacterial susceptibility panel - 7 04:48 Gentamicin susceptibility test by minimum inhibitory c oncentration <= NRG Trimethoprim/sulfamethoxazole susceptibi lity test by minimum inhibitoryconcentration >= NRG Tobramycin susceptibility test by minimum inhibitory c oncentration <= NRG Cefazolin susceptibility test by minimum inhibitory co ncentration >= NRG Piperacillin/tazobactam susceptibility t est by minimum inhibitory concentration <= NRG Ciprofloxacin susceptibility test by minimum inhibitor y concentration <= NRG Meropenem susceptibility test by minimum inhibitory co ncentration <= NRG Nitrofurantoin susceptibility test by mi nimum inhibitory concentration 32 NRG Aztreonam susceptibility test by minimum inhibitory co ncentration <= NRG Cefepime susceptibility test by minimum inhibitory con centration <= NRG Bacterial susceptibility panel - 7 04:48 Gentamicin susceptibility test by minimum inhibitory c oncentration <= NRG Trimethoprim/sulfamethoxazole susceptibi lity test by minimum inhibitoryconcentration <= NRG Ampicillin susceptibility test by minimum inhibitory c oncentration R NRG Tobramycin susceptibility test by minimum inhibitory c oncentration <= NRG Cefazolin susceptibility test by minimum inhibitory co ncentration >= NRG Ceftriaxone susceptibility test by minimum inhibitory concentration <= NRG Ampicillin/sulbactam susceptibility test by minimum inhibitory concentration <= NRG Piperacillin/tazobactam susceptibility t est by minimum inhibitory concentration <= NRG Ciprofloxacin susceptibility test by minimum inhibitor y concentration <= NRG Meropenem susceptibility test by minimum inhibitory co ncentration <= NRG Nitrofurantoin susceptibility test by mi nimum inhibitory concentration R NRG Aztreonam susceptibility test by minimum inhibitory co ncentration <= NRG Bacterial susceptibility panel - 7 04:48 Gentamicin susceptibility test by minimum inhibitory c oncentration S NRG Vancomycin susceptibility test by minimum inhibitory c oncentration 1 NRG Levofloxacin susceptibility test by minimum inhibitory concentration 1 NRG Tetracycline susceptibility test by minimum inhibitory concentration <= NRG Ampicillin susceptibility test by minimum inhibitory c oncentration <= NRG Nitrofurantoin susceptibility test by mi nimum inhibitory concentration <= NRG Linezolid susceptibility test by minimum inhibitory co ncentration 2 NRG Complete blood count (CBC) with automate d white blood cell (WBC) differential - 12/20/16 18:46 Blood leukocytes automated count (number/volume) 5.5 10*3/uL 4.3-11.0 Blood erythrocytes automated count (number/volume) 4.87 10*6/uL 4.35-5.85 Venous blood hemoglobin measurement (mass/volume) 12.2 g/dL 13.3-17.7 Blood hematocrit (volume fraction) 38 % 40-54 Automated erythrocyte mean corpuscular volume 79 [ foz_us] 80-99 Automated erythrocyte mean corpuscular h emoglobin (mass per erythrocyte) 25 pg 25-34 Automated erythrocyte mean corpuscular h emoglobin concentration measurement (mass/volume) 32 g/dL 32-36 Automated erythrocyte distribution width ratio 16. 6 % 10.0- 14.5 Automated blood platelet count (count/volume) 273 10*3/uL 130-400 Automated blood platelet mean volume measurement 11.2 [foz_us] 7.4-10.4 Automated blood neutrophils/100 leukocytes 53 % 42-75 Automated blood lymphocytes/100 leukocytes 36 % 12-44 Blood monocytes/100 leukocytes 9 % 0-12 Automated blood eosinophils/100 leukocytes 1 % 0-10 Automated blood basophils/100 leukocytes 1 % 0-10 Blood neutrophils automated count (number/volume) 2.9 10*3 1.8-7.8 Blood lymphocytes automated count (number/volume) 2.0 10*3 1.0-4.0 Blood monocytes automated count (number/volume) 0. 5 10*3 0.0-1.0 Automated eosinophil count 0.1 10*3/uL 0 .0-0.3 Automated blood basophil count (count/volume) 0.1 10*3/uL 0.0-0.1 Comprehensive metabolic panel - 12/20/16 18:46 Serum or plasma sodium measurement (moles/volume) 137 mmol/L 135-145 Serum or plasma potassium measurement (moles/volume) 4.6 mmol/L 3.6-5.0 Serum or plasma chloride measurement (moles/volume) 105 mmol/L 98-107 Carbon dioxide 24 mmol/L 21-32 Serum or plasma anion gap determination (moles/volume) 8 mmol/L 5-14 Serum or plasma urea nitrogen measurement (mass/volume ) 30 mg/dL 7-18 Serum or plasma creatinine measurement (mass/volume) 1.95 mg/dL 0.60-1.30 Serum or plasma urea nitrogen/creatinine mass ratio 15 NRG Serum or plasma creatinine measurement w ith calculation of estimated glomerular filtration rate 34 NRG Serum or plasma glucose measurement (mass/volume) 115 mg/dL 70-105 Serum or plasma calcium measurement (mass/volume) 9.7 mg/dL 8.5-10.1 Serum or plasma total bilirubin measurement (mass/volu me) 0.9 mg/dL 0.1-1.0 Serum or plasma alkaline phosphatase lindsay surement (enzymatic activity/volume) 85 U/L 40-136 Serum or plasma aspartate aminotransfera se measurement (enzymatic activity/volume) 23 U/L 5-34 Serum or plasma alanine aminotransferase measurement (enzymatic activity/volume) 13 U/L 0-55 Serum or plasma protein measurement (mass/volume) 8.0 g/dL 6.4-8.2 Serum or plasma albumin measurement (mass/volume) 4.3 g/dL 3.2-4.5 Magnesium - 12/20/16 18:46 Magnesium 2.1 mg/dL 1.8-2.4 Serum or plasma troponin i.cardiac measu rement (mass/volume) - 12/20/16 18:46 Serum or plasma troponin i.cardiac measurement (mass/v olume) < ng/mL <0.30 Serum or plasma lithium measurement (mol es/volume) - 12/20/16 18:46 BNP level 251.2 pg/mL <100.0 Complete urinalysis with reflex to cultu re - 12/20/16 21:26 Urine color determination YELLOW NRG Urine clarity determination VERY CLOUDY NRG Urine pH measurement by test strip 8 5-9 Specific gravity of urine by test strip 1.010 1.016-1.022 Urine protein assay by test strip, semi-quantitative 2+ NEGATIVE Urine glucose detection by automated test strip NE GATIVE NEGATIVE Erythrocytes detection in urine sediment by light micr oscopy 5+ NEGATIVE Urine ketones detection by automated test strip NE GATIVE NEGATIVE Urine nitrite detection by test strip POSITIVE NEGATIVE Urine total bilirubin detection by test strip NEGA TIVE NEGATIVE Urine urobilinogen measurement by automated test strip (mass/volume) NORMAL NORMAL Urine leukocyte esterase detection by dipstick 3+ NEGATIVE Automated urine sediment erythrocyte cou nt by microscopy (number/high power field) [HPF] NRG Automated urine sediment leukocyte count by microscopy (number/high power field) > [HPF] NRG Bacteria detection in urine sediment by light microsco py LARGE NRG Crystals detection in urine sediment by light microsco py NONE NRG Casts detection in urine sediment by light microscopy NONE NRG Mucus detection in urine sediment by light microscopy NEGATIVE NRG Complete urinalysis with reflex to culture YES NR Bacterial urine culture - 12/20/16 21:26 Bacterial urine culture [id number] NRG COLONY COUNT 10,000/ML - 100,000/ML NRG FTX;REPORTABLE SENSITIVITY REPORTED AT 727, 12-23 NR URINE CULTURE RESULTS PLUS NRG FREE TEXT ENTRY 2 SENSITIVITY REPORTED AT 726, [facility] Bacterial susceptibility panel - 21:26 Gentamicin susceptibility test by minimum inhibitory c oncentration <= NRG Trimethoprim/sulfamethoxazole susceptibi lity test by minimum inhibitoryconcentration <= NRG Ampicillin susceptibility test by minimum inhibitory c oncentration R NRG Tobramycin susceptibility test by minimum inhibitory c oncentration <= NRG Cefazolin susceptibility test by minimum inhibitory co ncentration <= NRG Ceftriaxone susceptibility test by minimum inhibitory concentration <= NRG Ampicillin/sulbactam susceptibility test by minimum inhibitory concentration 4 NRG Piperacillin/tazobactam susceptibility t est by minimum inhibitory concentration <= NRG Ciprofloxacin susceptibility test by minimum inhibitor y concentration <= NRG Meropenem susceptibility test by minimum inhibitory co ncentration <= NRG Nitrofurantoin susceptibility test by mi nimum inhibitory concentration 64 NRG Aztreonam susceptibility test by minimum inhibitory co ncentration <= NRG Extended spectrum beta lactamase (ESBL) producing bacteria susceptibility test by minimum inhibitory concentration - [facility] Bacterial susceptibility panel - 21:26 Gentamicin susceptibility test by minimum inhibitory c oncentration <= NRG Trimethoprim/sulfamethoxazole susceptibi lity test by minimum inhibitoryconcentration <= NRG Ampicillin susceptibility test by minimum inhibitory c oncentration >= NRG Tobramycin susceptibility test by minimum inhibitory c oncentration <= NRG Cefazolin susceptibility test by minimum inhibitory co ncentration >= NRG Ceftriaxone susceptibility test by minimum inhibitory concentration <= NRG Ampicillin/sulbactam susceptibility test by minimum inhibitory concentration 8 NRG Piperacillin/tazobactam susceptibility t est by minimum inhibitory concentration <= NRG Ciprofloxacin susceptibility test by minimum inhibitor y concentration <= NRG Meropenem susceptibility test by minimum inhibitory co ncentration <= NRG Nitrofurantoin susceptibility test by mi nimum inhibitory concentration R NRG Aztreonam susceptibility test by minimum inhibitory co ncentration <= NRG Cefepime susceptibility test by minimum inhibitory con centration <= NRG Bacterial susceptibility panel - 7 21:26 Gentamicin susceptibility test by minimum inhibitory c oncentration <= NRG Trimethoprim/sulfamethoxazole susceptibi lity test by minimum inhibitoryconcentration <= NRG Ampicillin susceptibility test by minimum inhibitory c oncentration R NRG Tobramycin susceptibility test by minimum inhibitory c oncentration <= NRG Cefazolin susceptibility test by minimum inhibitory co ncentration >= NRG Ceftriaxone susceptibility test by minimum inhibitory concentration <= NRG Ampicillin/sulbactam susceptibility test by minimum inhibitory concentration <= NRG Piperacillin/tazobactam susceptibility t est by minimum inhibitory concentration <= NRG Ciprofloxacin susceptibility test by minimum inhibitor y concentration <= NRG Meropenem susceptibility test by minimum inhibitory co ncentration <= NRG Nitrofurantoin susceptibility test by mi nimum inhibitory concentration 128 NRG Aztreonam susceptibility test by minimum inhibitory co ncentration <= NRG Serum or plasma troponin i.cardiac measu rement (mass/volume) - 12/21/16 00:50 Serum or plasma troponin i.cardiac measurement (mass/v olume) < ng/mL <0.30 Whole blood basic metabolic panel - 11/29 06/14 06:45 Serum or plasma sodium measurement (moles/volume) 136 mmol/L 135-145 Serum or plasma potassium measurement (moles/volume) 4.3 mmol/L 3.6-5.0 Serum or plasma chloride measurement (moles/volume) 107 mmol/L 98-107 Carbon dioxide 22 mmol/L 21-32 Serum or plasma anion gap determination (moles/volume) 7 mmol/L 5-14 Serum or plasma urea nitrogen measurement (mass/volume ) 32 mg/dL 7-18 Serum or plasma creatinine measurement (mass/volume) 1.68 mg/dL 0.60-1.30 Serum or plasma urea nitrogen/creatinine mass ratio 19 NRG Serum or plasma creatinine measurement w ith calculation of estimated glomerular filtration rate 40 NRG Serum or plasma glucose measurement (mass/volume) 90 mg/dL 70-105 Serum or plasma calcium measurement (mass/volume) 9.1 mg/dL 8.5-10.1 Serum or plasma troponin i.cardiac measu rement (mass/volume) - 12/21/16 06:45 Serum or plasma troponin i.cardiac measurement (mass/v olume) < ng/mL <0.30 Complete blood count (CBC) with automate d white blood cell (WBC) differential - 12/22/16 05:00 Blood leukocytes automated count (number/volume) 5.6 10*3/uL 4.3-11.0 Blood erythrocytes automated count (number/volume) 4.36 10*6/uL 4.35-5.85 Venous blood hemoglobin measurement (mass/volume) 11.1 g/dL 13.3-17.7 Blood hematocrit (volume fraction) 35 % 40-54 Automated erythrocyte mean corpuscular volume 79 [ foz_us] 80-99 Automated erythrocyte mean corpuscular h emoglobin (mass per erythrocyte) 26 pg 25-34 Automated erythrocyte mean corpuscular h emoglobin concentration measurement (mass/volume) 32 g/dL 32-36 Automated erythrocyte distribution width ratio 16. 4 % 10.0- 14.5 Automated blood platelet count (count/volume) 207 10*3/uL 130-400 Automated blood platelet mean volume measurement 10.4 [foz_us] 7.4-10.4 Automated blood neutrophils/100 leukocytes 52 % 42-75 Automated blood lymphocytes/100 leukocytes 34 % 12-44 Blood monocytes/100 leukocytes 12 % 0-12 Automated blood eosinophils/100 leukocytes 1 % 0-10 Automated blood basophils/100 leukocytes 1 % 0-10 Blood neutrophils automated count (number/volume) 2.9 10*3 1.8-7.8 Blood lymphocytes automated count (number/volume) 1.9 10*3 1.0-4.0 Blood monocytes automated count (number/volume) 0. 7 10*3 0.0-1.0 Automated eosinophil count 0.1 10*3/uL 0 .0-0.3 Automated blood basophil count (count/volume) 0.0 10*3/uL 0.0-0.1 Whole blood basic metabolic panel - 11/29 07/14 05:00 Serum or plasma sodium measurement (moles/volume) 138 mmol/L 135-145 Serum or plasma potassium measurement (moles/volume) 4.8 mmol/L 3.6-5.0 Serum or plasma chloride measurement (moles/volume) 109 mmol/L 98-107 Carbon dioxide 23 mmol/L 21-32 Serum or plasma anion gap determination (moles/volume) 6 mmol/L 5-14 Serum or plasma urea nitrogen measurement (mass/volume ) 23 mg/dL 7-18 Serum or plasma creatinine measurement (mass/volume) 1.31 mg/dL 0.60-1.30 Serum or plasma urea nitrogen/creatinine mass ratio 18 NRG Serum or plasma creatinine measurement w ith calculation of estimated glomerular filtration rate 54 NRG Serum or plasma glucose measurement (mass/volume) 84 mg/dL 70-105 Serum or plasma calcium measurement (mass/volume) 8.8 mg/dL 8.5-10.1 Magnesium - 12/22/16 05:00 Magnesium 1.7 mg/dL 1.8-2.4 Complete blood count (CBC) with automate d white blood cell (WBC) differential - 12/23/16 04:50 Blood leukocytes automated count (number/volume) 4.9 10*3/uL 4.3-11.0 Blood erythrocytes automated count (number/volume) 4.42 10*6/uL 4.35-5.85 Venous blood hemoglobin measurement (mass/volume) 11.3 g/dL 13.3-17.7 Blood hematocrit (volume fraction) 35 % 40-54 Automated erythrocyte mean corpuscular volume 79 [ foz_us] 80-99 Automated erythrocyte mean corpuscular h emoglobin (mass per erythrocyte) 26 pg 25-34 Automated erythrocyte mean corpuscular h emoglobin concentration measurement (mass/volume) 32 g/dL 32-36 Automated erythrocyte distribution width ratio 16. 4 % 10.0- 14.5 Automated blood platelet count (count/volume) 196 10*3/uL 130-400 Automated blood platelet mean volume measurement 10.3 [foz_us] 7.4-10.4 Automated blood neutrophils/100 leukocytes 46 % 42-75 Automated blood lymphocytes/100 leukocytes 39 % 12-44 Blood monocytes/100 leukocytes 11 % 0-12 Automated blood eosinophils/100 leukocytes 3 % 0-10 Automated blood basophils/100 leukocytes 1 % 0-10 Blood neutrophils automated count (number/volume) 2.3 10*3 1.8-7.8 Blood lymphocytes automated count (number/volume) 1.9 10*3 1.0-4.0 Blood monocytes automated count (number/volume) 0. 6 10*3 0.0-1.0 Automated eosinophil count 0.2 10*3/uL 0 .0-0.3 Automated blood basophil count (count/volume) 0.0 10*3/uL 0.0-0.1 Whole blood basic metabolic panel - 11/29 08/14 04:50 Serum or plasma sodium measurement (moles/volume) 139 mmol/L 135-145 Serum or plasma potassium measurement (moles/volume) 4.4 mmol/L 3.6-5.0 Serum or plasma chloride measurement (moles/volume) 108 mmol/L 98-107 Carbon dioxide 22 mmol/L 21-32 Serum or plasma anion gap determination (moles/volume) 9 mmol/L 5-14 Serum or plasma urea nitrogen measurement (mass/volume ) 23 mg/dL 7-18 Serum or plasma creatinine measurement (mass/volume) 1.27 mg/dL 0.60-1.30 Serum or plasma urea nitrogen/creatinine mass ratio 18 NRG Serum or plasma creatinine measurement w ith calculation of estimated glomerular filtration rate 56 NRG Serum or plasma glucose measurement (mass/volume) 81 mg/dL 70-105 Serum or plasma calcium measurement (mass/volume) 9.1 mg/dL 8.5-10.1 Cyanocobalamin measurement - 12/23/16 04 :50 Vitamin B12 380 pg/mL 200-1000 Complete blood count (CBC) with automate d white blood cell (WBC) differential - 12/25/16 05:33 Blood leukocytes automated count (number/volume) 4.8 10*3/uL 4.3-11.0 Blood erythrocytes automated count (number/volume) 4.48 10*6/uL 4.35-5.85 Venous blood hemoglobin measurement (mass/volume) 11.4 g/dL 13.3-17.7 Blood hematocrit (volume fraction) 36 % 40-54 Automated erythrocyte mean corpuscular volume 79 [ foz_us] 80-99 Automated erythrocyte mean corpuscular h emoglobin (mass per erythrocyte) 25 pg 25-34 Automated erythrocyte mean corpuscular h emoglobin concentration measurement (mass/volume) 32 g/dL 32-36 Automated erythrocyte distribution width ratio 16. 7 % 10.0- 14.5 Automated blood platelet count (count/volume) 218 10*3/uL 130-400 Automated blood platelet mean volume measurement 10.6 [foz_us] 7.4-10.4 Automated blood neutrophils/100 leukocytes 46 % 42-75 Automated blood lymphocytes/100 leukocytes 41 % 12-44 Blood monocytes/100 leukocytes 9 % 0-12 Automated blood eosinophils/100 leukocytes 4 % 0-10 Automated blood basophils/100 leukocytes 1 % 0-10 Blood neutrophils automated count (number/volume) 2.2 10*3 1.8-7.8 Blood lymphocytes automated count (number/volume) 2.0 10*3 1.0-4.0 Blood monocytes automated count (number/volume) 0. 4 10*3 0.0-1.0 Automated eosinophil count 0.2 10*3/uL 0 .0-0.3 Automated blood basophil count (count/volume) 0.1 10*3/uL 0.0-0.1 Whole blood basic metabolic panel - 11/29 10/14 05:33 Serum or plasma sodium measurement (moles/volume) 138 mmol/L 135-145 Serum or plasma potassium measurement (moles/volume) 4.2 mmol/L 3.6-5.0 Serum or plasma chloride measurement (moles/volume) 105 mmol/L 98-107 Carbon dioxide 25 mmol/L 21-32 Serum or plasma anion gap determination (moles/volume) 8 mmol/L 5-14 Serum or plasma urea nitrogen measurement (mass/volume ) 28 mg/dL 7-18 Serum or plasma creatinine measurement (mass/volume) 1.25 mg/dL 0.60-1.30 Serum or plasma urea nitrogen/creatinine mass ratio 22 NRG Serum or plasma creatinine measurement w ith calculation of estimated glomerular filtration rate 57 NRG Serum or plasma glucose measurement (mass/volume) 83 mg/dL 70-105 Serum or plasma calcium measurement (mass/volume) 9.4 mg/dL 8.5-10.1 Complete blood count (CBC) with automate d white blood cell (WBC) differential - 12/29/16 19:48 Blood leukocytes automated count (number/volume) 10.1 10*3/uL 4.3-11.0 Blood erythrocytes automated count (number/volume) 4.59 10*6/uL 4.35-5.85 Venous blood hemoglobin measurement (mass/volume) 11.8 g/dL 13.3-17.7 Blood hematocrit (volume fraction) 36 % 40-54 Automated erythrocyte mean corpuscular volume 78 [ foz_us] 80-99 Automated erythrocyte mean corpuscular h emoglobin (mass per erythrocyte) 26 pg 25-34 Automated erythrocyte mean corpuscular h emoglobin concentration measurement (mass/volume) 33 g/dL 32-36 Automated erythrocyte distribution width ratio 17. 0 % 10.0- 14.5 Automated blood platelet count (count/volume) 218 10*3/uL 130-400 Automated blood platelet mean volume measurement 10.9 [foz_us] 7.4-10.4 Automated blood neutrophils/100 leukocytes 76 % 42-75 Automated blood lymphocytes/100 leukocytes 13 % 12-44 Blood monocytes/100 leukocytes 11 % 0-12 Automated blood eosinophils/100 leukocytes 0 % 0-10 Automated blood basophils/100 leukocytes 1 % 0-10 Blood neutrophils automated count (number/volume) 7.7 10*3 1.8-7.8 Blood lymphocytes automated count (number/volume) 1.3 10*3 1.0-4.0 Blood monocytes automated count (number/volume) 1. 1 10*3 0.0-1.0 Automated eosinophil count 0.0 10*3/uL 0 .0-0.3 Automated blood basophil count (count/volume) 0.1 10*3/uL 0.0-0.1 PT panel in platelet poor plasma by coag ulation assay - 12/29/16 19:48 Prothrombin time (PT) in platelet poor plasma by coagu lation assay 13.8 s 12.2-14.7 INR in platelet poor plasma or blood by coagulation as say 1.1 0.8-1.4 Activated partial thromboplastin time (a PTT) in platelet poor plasma bycoagulation assay - 12/29/16 19:48 Activated partial thromboplastin time (a PTT) in platelet poor plasma bycoagulation assay 29 s 24-35 Comprehensive metabolic panel - 12/29/16 19:48 Serum or plasma sodium measurement (moles/volume) 136 mmol/L 135-145 Serum or plasma potassium measurement (moles/volume) 4.2 mmol/L 3.6-5.0 Serum or plasma chloride measurement (moles/volume) 103 mmol/L 98-107 Carbon dioxide 20 mmol/L 21-32 Serum or plasma anion gap determination (moles/volume) 13 mmol/L 5-14 Serum or plasma urea nitrogen measurement (mass/volume ) 21 mg/dL 7-18 Serum or plasma creatinine measurement (mass/volume) 1.49 mg/dL 0.60-1.30 Serum or plasma urea nitrogen/creatinine mass ratio 14 NRG Serum or plasma creatinine measurement w ith calculation of estimated glomerular filtration rate 46 NRG Serum or plasma glucose measurement (mass/volume) 155 mg/dL 70-105 Serum or plasma calcium measurement (mass/volume) 9.1 mg/dL 8.5-10.1 Serum or plasma total bilirubin measurement (mass/volu me) 0.7 mg/dL 0.1-1.0 Serum or plasma alkaline phosphatase lindsay surement (enzymatic activity/volume) 95 U/L 40-136 Serum or plasma aspartate aminotransfera se measurement (enzymatic activity/volume) 16 U/L 5-34 Serum or plasma alanine aminotransferase measurement (enzymatic activity/volume) 11 U/L 0-55 Serum or plasma protein measurement (mass/volume) 7.2 g/dL 6.4-8.2 Serum or plasma albumin measurement (mass/volume) 3.9 g/dL 3.2-4.5 Blood lactic acid measurement (moles/vol ume) - 12/29/16 19:48 Blood lactic acid measurement (moles/volume) 2.66 mmol/L 0.50-2.00 Influenza virus A and B antigen detectio n - 12/29/16 19:54 FLU RESULT NEGATIVE FOR INFLUENZA A AND B ANTIGENS BY IA [facility] Bacterial blood culture - 12/29/16 19:55 Bacterial blood culture NG [facility] Bacterial blood culture - 12/29/16 20:20 Bacterial blood culture NG [facility] Serum or plasma lactate measurement (mol es/volume) - 12/29/16 22:05 Serum or plasma lactate measurement (moles/volume) 1.27 mmol/L 0.50-2.00 Urine drug screening test - 12/29/16 22: 32 Urine phencyclidine detection by screening method NEGATIVE NEGATIVE Urine benzodiazepines detection by screening method NEGATIVE NEGATIVE Urine cocaine detection NEGATIVE NEGATI VE Urine amphetamines detection by screening method N EGATIVE NEGATIVE Urine methamphetamine detection by screening method NEGATIVE NEGATIVE Urine cannabinoids detection by screening method N EGATIVE NEGATIVE Urine opiates detection by screening method NEGATI VE NEGATIVE Urine barbiturates detection NEGATIVE N EGATIVE Screening urine tricyclic antidepressants detection NEGATIVE NEGATIVE Urine methadone detection by screening method NEGA TIVE NEGATIVE Urine oxycodone detection NEGATIVE NEGA TIVE Urine propoxyphene detection NEGATIVE N EGATIVE Complete urinalysis with reflex to cultu re - 12/29/16 22:32 Urine color determination YELLOW NRG Urine clarity determination CLEAR NR G Urine pH measurement by test strip 6 5-9 Specific gravity of urine by test strip 1.015 1.016-1.022 Urine protein assay by test strip, semi-quantitative 2+ NEGATIVE Urine glucose detection by automated test strip 1+ NEGATIVE Erythrocytes detection in urine sediment by light micr oscopy 1+ NEGATIVE Urine ketones detection by automated test strip NE GATIVE NEGATIVE Urine nitrite detection by test strip NEGATIVE NEGATIVE Urine total bilirubin detection by test strip NEGA TIVE NEGATIVE Urine urobilinogen measurement by automated test strip (mass/volume) 1 mg/dL NORMAL Urine leukocyte esterase detection by dipstick 1+ NEGATIVE Automated urine sediment erythrocyte cou nt by microscopy (number/high power field) [HPF] NRG Automated urine sediment leukocyte count by microscopy (number/high power field) [HPF] NRG Bacteria detection in urine sediment by light microsco py NEGATIVE NRG Crystals detection in urine sediment by light microsco py NONE NRG Casts detection in urine sediment by light microscopy NONE NRG Mucus detection in urine sediment by light microscopy NEGATIVE NRG Complete urinalysis with reflex to culture NO NRG Streptococcus pyogenes antigen detection - 12/29/16 22:37 Streptococcus pyogenes antigen detection NEGATIVE NEGATIVE Bacterial throat culture - 12/29/16 22:3 7 Bacterial throat culture NBS NRG Automated blood complete blood count (he mogram) panel - 12/31/16 04:30 Blood leukocytes automated count (number/volume) 8.2 10*3/uL 4.3-11.0 Blood erythrocytes automated count (number/volume) 3.92 10*6/uL 4.35-5.85 Venous blood hemoglobin measurement (mass/volume) 10.0 g/dL 13.3-17.7 Blood hematocrit (volume fraction) 31 % 40-54 Automated erythrocyte mean corpuscular volume 79 [ foz_us] 80-99 Automated erythrocyte mean corpuscular h emoglobin (mass per erythrocyte) 26 pg 25-34 Automated erythrocyte mean corpuscular h emoglobin concentration measurement (mass/volume) 33 g/dL 32-36 Automated erythrocyte distribution width ratio 17. 1 % 10.0- 14.5 Automated blood platelet count (count/volume) 178 10*3/uL 130-400 Automated blood platelet mean volume measurement 10.1 [foz_us] 7.4-10.4 Whole blood basic metabolic panel - 05/14 04:30 Serum or plasma sodium measurement (moles/volume) 135 mmol/L 135-145 Serum or plasma potassium measurement (moles/volume) 4.3 mmol/L 3.6-5.0 Serum or plasma chloride measurement (moles/volume) 106 mmol/L 98-107 Carbon dioxide 20 mmol/L 21-32 Serum or plasma anion gap determination (moles/volume) 9 mmol/L 5-14 Serum or plasma urea nitrogen measurement (mass/volume ) 15 mg/dL 7-18 Serum or plasma creatinine measurement (mass/volume) 1.08 mg/dL 0.60-1.30 Serum or plasma urea nitrogen/creatinine mass ratio 14 NRG Serum or plasma creatinine measurement w ith calculation of estimated glomerular filtration rate > NRG Serum or plasma glucose measurement (mass/volume) 90 mg/dL 70-105 Serum or plasma calcium measurement (mass/volume) 8.7 mg/dL 8.5-10.1 Serum or plasma troponin i.cardiac measu rement (mass/volume) - 12/31/16 04:30 Serum or plasma troponin i.cardiac measurement (mass/v olume) < ng/mL <0.30 Complete blood count (CBC) with automate d white blood cell (WBC) differential - 01/02/17 08:30 Blood leukocytes automated count (number/volume) 8.2 10*3/uL 4.3-11.0 Blood erythrocytes automated count (number/volume) 4.10 10*6/uL 4.35-5.85 Venous blood hemoglobin measurement (mass/volume) 10.4 g/dL 13.3-17.7 Blood hematocrit (volume fraction) 32 % 40-54 Automated erythrocyte mean corpuscular volume 78 [ foz_us] 80-99 Automated erythrocyte mean corpuscular h emoglobin (mass per erythrocyte) 25 pg 25-34 Automated erythrocyte mean corpuscular h emoglobin concentration measurement (mass/volume) 33 g/dL 32-36 Automated erythrocyte distribution width ratio 17. 0 % 10.0- 14.5 Automated blood platelet count (count/volume) 217 10*3/uL 130-400 Automated blood platelet mean volume measurement 10.1 [foz_us] 7.4-10.4 Automated blood neutrophils/100 leukocytes 81 % 42-75 Automated blood lymphocytes/100 leukocytes 11 % 12-44 Blood monocytes/100 leukocytes 7 % 0-12 Automated blood eosinophils/100 leukocytes 1 % 0-10 Automated blood basophils/100 leukocytes 1 % 0-10 Blood neutrophils automated count (number/volume) 6.6 10*3 1.8-7.8 Blood lymphocytes automated count (number/volume) 0.9 10*3 1.0-4.0 Blood monocytes automated count (number/volume) 0. 6 10*3 0.0-1.0 Automated eosinophil count 0.1 10*3/uL 0 .0-0.3 Automated blood basophil count (count/volume) 0.0 10*3/uL 0.0-0.1 Comprehensive metabolic panel - 01/02/17 08:30 Serum or plasma sodium measurement (moles/volume) 133 mmol/L 135-145 Serum or plasma potassium measurement (moles/volume) 3.7 mmol/L 3.6-5.0 Serum or plasma chloride measurement (moles/volume) 102 mmol/L 98-107 Carbon dioxide 18 mmol/L 21-32 Serum or plasma anion gap determination (moles/volume) 13 mmol/L 5-14 Serum or plasma urea nitrogen measurement (mass/volume ) 21 mg/dL 7-18 Serum or plasma creatinine measurement (mass/volume) 1.22 mg/dL 0.60-1.30 Serum or plasma urea nitrogen/creatinine mass ratio 17 NRG Serum or plasma creatinine measurement w ith calculation of estimated glomerular filtration rate 58 NRG Serum or plasma glucose measurement (mass/volume) 182 mg/dL 70-105 Serum or plasma calcium measurement (mass/volume) 8.6 mg/dL 8.5-10.1 Serum or plasma total bilirubin measurement (mass/volu me) 0.7 mg/dL 0.1-1.0 Serum or plasma alkaline phosphatase lindsay surement (enzymatic activity/volume) 73 U/L 40-136 Serum or plasma aspartate aminotransfera se measurement (enzymatic activity/volume) 12 U/L 5-34 Serum or plasma alanine aminotransferase measurement (enzymatic activity/volume) 9 U/L 0-55 Serum or plasma protein measurement (mass/volume) 6.5 g/dL 6.4-8.2 Serum or plasma albumin measurement (mass/volume) 3.3 g/dL 3.2-4.5 Blood lactic acid measurement (moles/vol ume) - 01/02/17 08:30 Blood lactic acid measurement (moles/volume) 2.89 mmol/L 0.50-2.00 Bacterial blood culture - 01/02/17 08:30 Bacterial blood culture NG NRG Bacterial blood culture - 01/02/17 09:00 Bacterial blood culture NG NRG Serum or plasma lactate measurement (mol es/volume) - 01/02/17 10:46 Serum or plasma lactate measurement (moles/volume) 1.26 mmol/L 0.50-2.00 Complete urinalysis with reflex to cultu re - 01/02/17 15:18 Urine color determination YELLOW NRG Urine clarity determination CLEAR NR G Urine pH measurement by test strip 6 5-9 Specific gravity of urine by test strip 1.020 1.016-1.022 Urine protein assay by test strip, semi-quantitative 2+ NEGATIVE Urine glucose detection by automated test strip NE GATIVE NEGATIVE Erythrocytes detection in urine sediment by light micr oscopy 2+ NEGATIVE Urine ketones detection by automated test strip NE GATIVE NEGATIVE Urine nitrite detection by test strip NEGATIVE NEGATIVE Urine total bilirubin detection by test strip NEGA TIVE NEGATIVE Urine urobilinogen measurement by automated test strip (mass/volume) NORMAL NORMAL Urine leukocyte esterase detection by dipstick 1+ NEGATIVE Automated urine sediment erythrocyte cou nt by microscopy (number/high power field) [HPF] NRG Automated urine sediment leukocyte count by microscopy (number/high power field) [HPF] NRG Bacteria detection in urine sediment by light microsco py TRACE NRG Crystals detection in urine sediment by light microsco py NONE NRG Casts detection in urine sediment by light microscopy NONE NRG Mucus detection in urine sediment by light microscopy NEGATIVE NRG Complete urinalysis with reflex to culture YES NRG Yeast detection in urine sediment by light microscopy FEW NRG Bacterial urine culture - 01/02/17 15:18 Bacterial urine culture SEE COMMEN NRG COLONY COUNT . NRG Capillary blood glucose measurement by g lucometer (mass/volume) - 01/02/17 17:15 Capillary blood glucose measurement by glucometer (mas s/volume) 128 mg/dL 70-110 Complete blood count (CBC) with automate d white blood cell (WBC) differential - 01/04/17 05:00 Blood leukocytes automated count (number/volume) 14.0 10*3/uL 4.3-11.0 Blood erythrocytes automated count (number/volume) 3.02 10*6/uL 4.35-5.85 Venous blood hemoglobin measurement (mass/volume) 7.6 g/dL 13.3-17.7 Blood hematocrit (volume fraction) 24 % 40-54 Automated erythrocyte mean corpuscular volume 79 [ foz_us] 80-99 Automated erythrocyte mean corpuscular h emoglobin (mass per erythrocyte) 25 pg 25-34 Automated erythrocyte mean corpuscular h emoglobin concentration measurement (mass/volume) 32 g/dL 32-36 Automated erythrocyte distribution width ratio 16. 8 % 10.0- 14.5 Automated blood platelet count (count/volume) 242 10*3/uL 130-400 Automated blood platelet mean volume measurement 10.6 [foz_us] 7.4-10.4 Automated blood neutrophils/100 leukocytes 80 % 42-75 Automated blood lymphocytes/100 leukocytes 11 % 12-44 Blood monocytes/100 leukocytes 6 % 0-12 Automated blood eosinophils/100 leukocytes 3 % 0-10 Automated blood basophils/100 leukocytes 0 % 0-10 Blood neutrophils automated count (number/volume) 11.2 10*3 1.8-7.8 Blood lymphocytes automated count (number/volume) 1.6 10*3 1.0-4.0 Blood monocytes automated count (number/volume) 0. 8 10*3 0.0-1.0 Automated eosinophil count 0.4 10*3/uL 0 .0-0.3 Automated blood basophil count (count/volume) 0.0 10*3/uL 0.0-0.1 Comprehensive metabolic panel - 01/04/17 05:00 Serum or plasma sodium measurement (moles/volume) 137 mmol/L 135-145 Serum or plasma potassium measurement (moles/volume) 3.2 mmol/L 3.6-5.0 Serum or plasma chloride measurement (moles/volume) 106 mmol/L 98-107 Carbon dioxide 20 mmol/L 21-32 Serum or plasma anion gap determination (moles/volume) 11 mmol/L 5-14 Serum or plasma urea nitrogen measurement (mass/volume ) 21 mg/dL 7-18 Serum or plasma creatinine measurement (mass/volume) 1.30 mg/dL 0.60-1.30 Serum or plasma urea nitrogen/creatinine mass ratio 16 NRG Serum or plasma creatinine measurement w ith calculation of estimated glomerular filtration rate 54 NRG Serum or plasma glucose measurement (mass/volume) 123 mg/dL 70-105 Serum or plasma calcium measurement (mass/volume) 8.7 mg/dL 8.5-10.1 Serum or plasma total bilirubin measurement (mass/volu me) 0.3 mg/dL 0.1-1.0 Serum or plasma alkaline phosphatase lindsay surement (enzymatic activity/volume) 74 U/L 40-136 Serum or plasma aspartate aminotransfera se measurement (enzymatic activity/volume) 16 U/L 5-34 Serum or plasma alanine aminotransferase measurement (enzymatic activity/volume) 11 U/L 0-55 Serum or plasma protein measurement (mass/volume) 6.5 g/dL 6.4-8.2 Serum or plasma albumin measurement (mass/volume) 3.1 g/dL 3.2-4.5 Complete blood count (CBC) with automate d white blood cell (WBC) differential - 01/04/17 10:31 Blood leukocytes automated count (number/volume) 9.8 10*3/uL 4.3-11.0 Blood erythrocytes automated count (number/volume) 3.74 10*6/uL 4.35-5.85 Venous blood hemoglobin measurement (mass/volume) 9.4 g/dL 13.3-17.7 Blood hematocrit (volume fraction) 29 % 40-54 Automated erythrocyte mean corpuscular volume 78 [ foz_us] 80-99 Automated erythrocyte mean corpuscular h emoglobin (mass per erythrocyte) 25 pg 25-34 Automated erythrocyte mean corpuscular h emoglobin concentration measurement (mass/volume) 32 g/dL 32-36 Automated erythrocyte distribution width ratio 16. 9 % 10.0- 14.5 Automated blood platelet count (count/volume) 224 10*3/uL 130-400 Automated blood platelet mean volume measurement 9.9 [foz_us] 7.4-10.4 Automated blood neutrophils/100 leukocytes 83 % 42-75 Automated blood lymphocytes/100 leukocytes 10 % 12-44 Blood monocytes/100 leukocytes 6 % 0-12 Automated blood eosinophils/100 leukocytes 2 % 0-10 Automated blood basophils/100 leukocytes 0 % 0-10 Blood neutrophils automated count (number/volume) 8.1 10*3 1.8-7.8 Blood lymphocytes automated count (number/volume) 0.9 10*3 1.0-4.0 Blood monocytes automated count (number/volume) 0. 6 10*3 0.0-1.0 Automated eosinophil count 0.2 10*3/uL 0 .0-0.3 Automated blood basophil count (count/volume) 0.0 10*3/uL 0.0-0.1 Serum iron and total iron binding capaci ty panel - 01/04/17 10:31 Serum or plasma iron measurement (mass/volume) 13 % 40-180 Total iron binding capacity and transferrin saturation measurement 4 % 15-50 Iron binding capacity [mass/volume] in serum or plasma 289 % 280-380 UIBC (unsaturated iron binding capacity) 276 % 55-450 Serum or plasma ferritin measurement (mass/volume) 143.0 % 25.0-300.0 Stool occult blood screen - 01/05/17 02: 10 Stool gastrointestinal hemoglobin detection POSITI VE NEGATIVE C DIFFICILE AG + TOXIN A/B. - 01/05/17 0 2:10 RESULTS NEGATIVE FOR ANTIGEN AND TOXIN A/B NRG Complete blood count (CBC) with automate d white blood cell (WBC) differential - 01/05/17 05:36 Blood leukocytes automated count (number/volume) 7.4 10*3/uL 4.3-11.0 Blood erythrocytes automated count (number/volume) 3.85 10*6/uL 4.35-5.85 Venous blood hemoglobin measurement (mass/volume) 9.8 g/dL 13.3-17.7 Blood hematocrit (volume fraction) 30 % 40-54 Automated erythrocyte mean corpuscular volume 78 [ foz_us] 80-99 Automated erythrocyte mean corpuscular h emoglobin (mass per erythrocyte) 26 pg 25-34 Automated erythrocyte mean corpuscular h emoglobin concentration measurement (mass/volume) 33 g/dL 32-36 Automated erythrocyte distribution width ratio 16. 9 % 10.0- 14.5 Automated blood platelet count (count/volume) 259 10*3/uL 130-400 Automated blood platelet mean volume measurement 10.4 [foz_us] 7.4-10.4 Automated blood neutrophils/100 leukocytes 64 % 42-75 Automated blood lymphocytes/100 leukocytes 21 % 12-44 Blood monocytes/100 leukocytes 7 % 0-12 Automated blood eosinophils/100 leukocytes 8 % 0-10 Automated blood basophils/100 leukocytes 0 % 0-10 Blood neutrophils automated count (number/volume) 4.7 10*3 1.8-7.8 Blood lymphocytes automated count (number/volume) 1.5 10*3 1.0-4.0 Blood monocytes automated count (number/volume) 0. 5 10*3 0.0-1.0 Automated eosinophil count 0.6 10*3/uL 0 .0-0.3 Automated blood basophil count (count/volume) 0.0 10*3/uL 0.0-0.1 Comprehensive metabolic panel - 01/05/17 05:36 Serum or plasma sodium measurement (moles/volume) 139 mmol/L 135-145 Serum or plasma potassium measurement (moles/volume) 3.5 mmol/L 3.6-5.0 Serum or plasma chloride measurement (moles/volume) 109 mmol/L 98-107 Carbon dioxide 21 mmol/L 21-32 Serum or plasma anion gap determination (moles/volume) 9 mmol/L 5-14 Serum or plasma urea nitrogen measurement (mass/volume ) 21 mg/dL 7-18 Serum or plasma creatinine measurement (mass/volume) 1.06 mg/dL 0.60-1.30 Serum or plasma urea nitrogen/creatinine mass ratio 20 NRG Serum or plasma creatinine measurement w ith calculation of estimated glomerular filtration rate > NRG Serum or plasma glucose measurement (mass/volume) 93 mg/dL 70-105 Serum or plasma calcium measurement (mass/volume) 9.0 mg/dL 8.5-10.1 Serum or plasma total bilirubin measurement (mass/volu me) 0.3 mg/dL 0.1-1.0 Serum or plasma alkaline phosphatase lindsay surement (enzymatic activity/volume) 69 U/L 40-136 Serum or plasma aspartate aminotransfera se measurement (enzymatic activity/volume) 14 U/L 5-34 Serum or plasma alanine aminotransferase measurement (enzymatic activity/volume) 10 U/L 0-55 Serum or plasma protein measurement (mass/volume) 6.0 g/dL 6.4-8.2 Serum or plasma albumin measurement (mass/volume) 3.1 g/dL 3.2-4.5 Complete blood count (CBC) with automate d white blood cell (WBC) differential - 01/06/17 05:20 Blood leukocytes automated count (number/volume) 6.0 10*3/uL 4.3-11.0 Blood erythrocytes automated count (number/volume) 3.87 10*6/uL 4.35-5.85 Venous blood hemoglobin measurement (mass/volume) 9.8 g/dL 13.3-17.7 Blood hematocrit (volume fraction) 30 % 40-54 Automated erythrocyte mean corpuscular volume 77 [ foz_us] 80-99 Automated erythrocyte mean corpuscular h emoglobin (mass per erythrocyte) 25 pg 25-34 Automated erythrocyte mean corpuscular h emoglobin concentration measurement (mass/volume) 33 g/dL 32-36 Automated erythrocyte distribution width ratio 16. 9 % 10.0- 14.5 Automated blood platelet count (count/volume) 289 10*3/uL 130-400 Automated blood platelet mean volume measurement 9.8 [foz_us] 7.4-10.4 Automated blood neutrophils/100 leukocytes 58 % 42-75 Automated blood lymphocytes/100 leukocytes 26 % 12-44 Blood monocytes/100 leukocytes 8 % 0-12 Automated blood eosinophils/100 leukocytes 8 % 0-10 Automated blood basophils/100 leukocytes 1 % 0-10 Blood neutrophils automated count (number/volume) 3.5 10*3 1.8-7.8 Blood lymphocytes automated count (number/volume) 1.6 10*3 1.0-4.0 Blood monocytes automated count (number/volume) 0. 5 10*3 0.0-1.0 Automated eosinophil count 0.5 10*3/uL 0 .0-0.3 Automated blood basophil count (count/volume) 0.0 10*3/uL 0.0-0.1 Whole blood basic metabolic panel - 11/14 05:20 Serum or plasma sodium measurement (moles/volume) 140 mmol/L 135-145 Serum or plasma potassium measurement (moles/volume) 3.3 mmol/L 3.6-5.0 Serum or plasma chloride measurement (moles/volume) 110 mmol/L 98-107 Carbon dioxide 18 mmol/L 21-32 Serum or plasma anion gap determination (moles/volume) 12 mmol/L 5-14 Serum or plasma urea nitrogen measurement (mass/volume ) 18 mg/dL 7-18 Serum or plasma creatinine measurement (mass/volume) 1.03 mg/dL 0.60-1.30 Serum or plasma urea nitrogen/creatinine mass ratio 17 NRG Serum or plasma creatinine measurement w ith calculation of estimated glomerular filtration rate > NRG Serum or plasma glucose measurement (mass/volume) 91 mg/dL 70-105 Serum or plasma calcium measurement (mass/volume) 9.0 mg/dL 8.5-10.1 Complete blood count (CBC) with automate d white blood cell (WBC) differential - 02/18/17 06:55 Blood leukocytes automated count (number/volume) 4.6 10*3/uL 4.3-11.0 Blood erythrocytes automated count (number/volume) 4.58 10*6/uL 4.35-5.85 Venous blood hemoglobin measurement (mass/volume) 12.1 g/dL 13.3-17.7 Blood hematocrit (volume fraction) 37 % 40-54 Automated erythrocyte mean corpuscular volume 82 [ foz_us] 80-99 Automated erythrocyte mean corpuscular h emoglobin (mass per erythrocyte) 26 pg 25-34 Automated erythrocyte mean corpuscular h emoglobin concentration measurement (mass/volume) 32 g/dL 32-36 Automated erythrocyte distribution width ratio 18. 9 % 10.0- 14.5 Automated blood platelet count (count/volume) 234 10*3/uL 130-400 Automated blood platelet mean volume measurement 10.5 [foz_us] 7.4-10.4 Automated blood neutrophils/100 leukocytes 44 % 42-75 Automated blood lymphocytes/100 leukocytes 39 % 12-44 Blood monocytes/100 leukocytes 13 % 0-12 Automated blood eosinophils/100 leukocytes 2 % 0-10 Automated blood basophils/100 leukocytes 2 % 0-10 Blood neutrophils automated count (number/volume) 2.0 10*3 1.8-7.8 Blood lymphocytes automated count (number/volume) 1.8 10*3 1.0-4.0 Blood monocytes automated count (number/volume) 0. 6 10*3 0.0-1.0 Automated eosinophil count 0.1 10*3/uL 0 .0-0.3 Automated blood basophil count (count/volume) 0.1 10*3/uL 0.0-0.1 Comprehensive metabolic panel - 02/18/17 06:55 Serum or plasma sodium measurement (moles/volume) 140 mmol/L 135-145 Serum or plasma potassium measurement (moles/volume) 4.1 mmol/L 3.6-5.0 Serum or plasma chloride measurement (moles/volume) 107 mmol/L 98-107 Carbon dioxide 23 mmol/L 21-32 Serum or plasma anion gap determination (moles/volume) 10 mmol/L 5-14 Serum or plasma urea nitrogen measurement (mass/volume ) 14 mg/dL 7-18 Serum or plasma creatinine measurement (mass/volume) 1.27 mg/dL 0.60-1.30 Serum or plasma urea nitrogen/creatinine mass ratio 11 NRG Serum or plasma creatinine measurement w ith calculation of estimated glomerular filtration rate 56 NRG Serum or plasma glucose measurement (mass/volume) 89 mg/dL 70-105 Serum or plasma calcium measurement (mass/volume) 9.2 mg/dL 8.5-10.1 Serum or plasma total bilirubin measurement (mass/volu me) 0.7 mg/dL 0.1-1.0 Serum or plasma alkaline phosphatase lindsay surement (enzymatic activity/volume) 90 U/L 40-136 Serum or plasma aspartate aminotransfera se measurement (enzymatic activity/volume) 19 U/L 5-34 Serum or plasma alanine aminotransferase measurement (enzymatic activity/volume) 16 U/L 0-55 Serum or plasma protein measurement (mass/volume) 6.7 g/dL 6.4-8.2 Serum or plasma albumin measurement (mass/volume) 3.9 g/dL 3.2-4.5 Serum or plasma troponin i.cardiac measu rement (mass/volume) - 02/18/17 06:55 Serum or plasma troponin i.cardiac measurement (mass/v olume) < ng/mL <0.30 Complete urinalysis with reflex to cultu re - 02/18/17 10:34 Urine color determination YELLOW NRG Urine clarity determination VERY CLOUDY NRG Urine pH measurement by test strip 7 5-9 Specific gravity of urine by test strip 1.005 1.016-1.022 Urine protein assay by test strip, semi-quantitative 2+ NEGATIVE Urine glucose detection by automated test strip NE GATIVE NEGATIVE Erythrocytes detection in urine sediment by light micr oscopy 3+ NEGATIVE Urine ketones detection by automated test strip NE GATIVE NEGATIVE Urine nitrite detection by test strip NEGATIVE NEGATIVE Urine total bilirubin detection by test strip NEGA TIVE NEGATIVE Urine urobilinogen measurement by automated test strip (mass/volume) NORMAL NORMAL Urine leukocyte esterase detection by dipstick 3+ NEGATIVE Automated urine sediment erythrocyte cou nt by microscopy (number/high power field) [HPF] NRG Automated urine sediment leukocyte count by microscopy (number/high power field) > [HPF] NRG Bacteria detection in urine sediment by light microsco py MODERATE NRG Crystals detection in urine sediment by light microsco py NONE NRG Casts detection in urine sediment by light microscopy NONE NRG Mucus detection in urine sediment by light microscopy NEGATIVE NRG Complete urinalysis with reflex to culture YES NRG Bacterial urine culture - 02/18/17 10:34 Bacterial urine culture SEE COMMEN NRG COLONY COUNT . NRG FTX;REPORTABLE SENSITIVITY REPORTED 02/20/17 14:25 NRG Bacterial susceptibility panel - 7 10:34 Gentamicin susceptibility test by minimum inhibitory c oncentration >= NRG Trimethoprim/sulfamethoxazole susceptibi lity test by minimum inhibitoryconcentration R NRG Ampicillin susceptibility test by minimum inhibitory c oncentration >= NRG Tobramycin susceptibility test by minimum inhibitory c oncentration 4 NRG Cefazolin susceptibility test by minimum inhibitory co ncentration >= NRG Ceftriaxone susceptibility test by minimum inhibitory concentration 8 NRG Ampicillin/sulbactam susceptibility test by minimum inhibitory concentration R NRG Piperacillin/tazobactam susceptibility t est by minimum inhibitory concentration S NRG Ciprofloxacin susceptibility test by minimum inhibitor y concentration >= NRG Meropenem susceptibility test by minimum inhibitory co ncentration <= NRG Nitrofurantoin susceptibility test by mi nimum inhibitory concentration 128 NRG Aztreonam susceptibility test by minimum inhibitory co ncentration <= NRG Complete blood count (CBC) with automate d white blood cell (WBC) differential - 05/18/17 03:36 Blood leukocytes automated count (number/volume) 6.0 10*3/uL 4.3-11.0 Blood erythrocytes automated count (number/volume) 4.96 10*6/uL 4.35-5.85 Venous blood hemoglobin measurement (mass/volume) 13.4 g/dL 13.3-17.7 Blood hematocrit (volume fraction) 41 % 40-54 Automated erythrocyte mean corpuscular volume 83 [ foz_us] 80-99 Automated erythrocyte mean corpuscular h emoglobin (mass per erythrocyte) 27 pg 25-34 Automated erythrocyte mean corpuscular h emoglobin concentration measurement (mass/volume) 33 g/dL 32-36 Automated erythrocyte distribution width ratio 16. 6 % 10.0- 14.5 Automated blood platelet count (count/volume) 202 10*3/uL 130-400 Automated blood platelet mean volume measurement 10.3 [foz_us] 7.4-10.4 Automated blood neutrophils/100 leukocytes 46 % 42-75 Automated blood lymphocytes/100 leukocytes 40 % 12-44 Blood monocytes/100 leukocytes 11 % 0-12 Automated blood eosinophils/100 leukocytes 2 % 0-10 Automated blood basophils/100 leukocytes 1 % 0-10 Blood neutrophils automated count (number/volume) 2.8 10*3 1.8-7.8 Blood lymphocytes automated count (number/volume) 2.4 10*3 1.0-4.0 Blood monocytes automated count (number/volume) 0. 7 10*3 0.0-1.0 Automated eosinophil count 0.1 10*3/uL 0 .0-0.3 Automated blood basophil count (count/volume) 0.0 10*3/uL 0.0-0.1 PT panel in platelet poor plasma by coag ulation assay - 05/18/17 03:36 Prothrombin time (PT) in platelet poor plasma by coagu lation assay 15.1 s 12.2-14.7 INR in platelet poor plasma or blood by coagulation as say 1.2 0.8-1.4 Activated partial thromboplastin time (a PTT) in platelet poor plasma bycoagulation assay - 05/18/17 03:36 Activated partial thromboplastin time (a PTT) in platelet poor plasma bycoagulation assay 34 s 24-35 Comprehensive metabolic panel - 05/18/17 03:36 Serum or plasma sodium measurement (moles/volume) 140 mmol/L 135-145 Serum or plasma potassium measurement (moles/volume) 4.1 mmol/L 3.6-5.0 Serum or plasma chloride measurement (moles/volume) 109 mmol/L 98-107 Carbon dioxide 20 mmol/L 21-32 Serum or plasma anion gap determination (moles/volume) 11 mmol/L 5-14 Serum or plasma urea nitrogen measurement (mass/volume ) 31 mg/dL 7-18 Serum or plasma creatinine measurement (mass/volume) 1.47 mg/dL 0.60-1.30 Serum or plasma urea nitrogen/creatinine mass ratio 21 NRG Serum or plasma creatinine measurement w ith calculation of estimated glomerular filtration rate 47 NRG Serum or plasma glucose measurement (mass/volume) 81 mg/dL 70-105 Serum or plasma calcium measurement (mass/volume) 9.5 mg/dL 8.5-10.1 Serum or plasma total bilirubin measurement (mass/volu me) 0.6 mg/dL 0.1-1.0 Serum or plasma alkaline phosphatase lindsay surement (enzymatic activity/volume) 81 U/L 40-136 Serum or plasma aspartate aminotransfera se measurement (enzymatic activity/volume) 18 U/L 5-34 Serum or plasma alanine aminotransferase measurement (enzymatic activity/volume) 13 U/L 0-55 Serum or plasma protein measurement (mass/volume) 7.5 g/dL 6.4-8.2 Serum or plasma albumin measurement (mass/volume) 4.4 g/dL 3.2-4.5 Magnesium - 05/18/17 03:36 Magnesium 2.1 mg/dL 1.8-2.4 Myoglobin, serum - 05/18/17 03:36 Myoglobin, serum 100.0 ng/mL 10.0-92.0 Serum or plasma troponin i.cardiac measu rement (mass/volume) - 05/18/17 03:36 Serum or plasma troponin i.cardiac measurement (mass/v olume) < ng/mL <0.30 Serum or plasma C reactive protein measu rement (mass/volume) - 05/18/17 03:36 Serum or plasma C reactive protein measurement (mass/v olume) 0.15 mg/dL 0.00-0.50 Lipase - 05/18/17 03:36 Lipase 51 U/L 8-78 Myoglobin, serum - 05/18/17 03:36 Myoglobin, serum 100.0 ng/mL 10.0-92.0 Lipase - 05/18/17 03:36 Lipase 51 U/L 8-78 Serum or plasma lithium measurement (mol es/volume) - 05/18/17 03:36 BNP level 165.3 pg/mL <100.0 Complete urinalysis with reflex to cultu re - 05/18/17 03:47 Urine color determination RED NRG Urine clarity determination BLOODY NR G Urine pH measurement by test strip 8 5-9 Specific gravity of urine by test strip 1.010 1.016-1.022 Urine protein assay by test strip, semi-quantitative 4+ NEGATIVE Urine glucose detection by automated test strip NE GATIVE NEGATIVE Erythrocytes detection in urine sediment by light micr oscopy 5+ NEGATIVE Urine ketones detection by automated test strip NE GATIVE NEGATIVE Urine nitrite detection by test strip POSITIVE NEGATIVE Urine total bilirubin detection by test strip NEGA TIVE NEGATIVE Urine urobilinogen measurement by automated test strip (mass/volume) NORMAL NORMAL Urine leukocyte esterase detection by dipstick 3+ NEGATIVE Automated urine sediment erythrocyte cou nt by microscopy (number/high power field) TNTC NRG Automated urine sediment leukocyte count by microscopy (number/high power field) [HPF] NRG Bacteria detection in urine sediment by light microsco py LARGE NRG Squamous epithelial cells detection in u rine sediment by light microscopy NONE NRG Crystals detection in urine sediment by light microsco py NONE NRG Casts detection in urine sediment by light microscopy NONE NRG Mucus detection in urine sediment by light microscopy NEGATIVE NRG Complete urinalysis with reflex to culture YES NRG Urine drug screening test - 05/18/17 03: 47 Urine phencyclidine detection by screening method NEGATIVE NEGATIVE Urine benzodiazepines detection by screening method NEGATIVE NEGATIVE Urine cocaine detection NEGATIVE NEGATI VE Urine amphetamines detection by screening method N EGATIVE NEGATIVE Urine methamphetamine detection by screening method NEGATIVE NEGATIVE Urine cannabinoids detection by screening method N EGATIVE NEGATIVE Urine opiates detection by screening method NEGATI VE NEGATIVE Urine barbiturates detection NEGATIVE N EGATIVE Screening urine tricyclic antidepressants detection NEGATIVE NEGATIVE Urine methadone detection by screening method NEGA TIVE NEGATIVE Urine oxycodone detection NEGATIVE NEGA TIVE Urine propoxyphene detection NEGATIVE N EGATIVE Bacterial urine culture - 05/18/17 03:47 Bacterial urine culture [id number] NRG COLONY COUNT <10,000 NRG FTX;REPORTABLE SENSITIVITY REPORTED 05/20/17 9:00 NRG Bacterial susceptibility panel - 8 03:47 Gentamicin susceptibility test by minimum inhibitory c oncentration <= NRG Trimethoprim/sulfamethoxazole susceptibi lity test by minimum inhibitoryconcentration S NRG Ampicillin susceptibility test by minimum inhibitory c oncentration R NRG Tobramycin susceptibility test by minimum inhibitory c oncentration <= NRG Cefazolin susceptibility test by minimum inhibitory co ncentration 32 NRG Ceftriaxone susceptibility test by minimum inhibitory concentration <= NRG Ampicillin/sulbactam susceptibility test by minimum inhibitory concentration S NRG Piperacillin/tazobactam susceptibility t est by minimum inhibitory concentration S NRG Ciprofloxacin susceptibility test by minimum inhibitor y concentration 2 NRG Meropenem susceptibility test by minimum inhibitory co ncentration <= NRG Nitrofurantoin susceptibility test by mi nimum inhibitory concentration 128 NRG Aztreonam susceptibility test by minimum inhibitory co ncentration <= NRG Bacterial susceptibility panel - 8 03:47 Gentamicin susceptibility test by minimum inhibitory c oncentration <= NRG Trimethoprim/sulfamethoxazole susceptibi lity test by minimum inhibitoryconcentration S NRG Ampicillin susceptibility test by minimum inhibitory c oncentration >= NRG Tobramycin susceptibility test by minimum inhibitory c oncentration <= NRG Cefazolin susceptibility test by minimum inhibitory co ncentration >= NRG Ceftriaxone susceptibility test by minimum inhibitory concentration <= NRG Ampicillin/sulbactam susceptibility test by minimum inhibitory concentration S NRG Piperacillin/tazobactam susceptibility t est by minimum inhibitory concentration S NRG Ciprofloxacin susceptibility test by minimum inhibitor y concentration <= NRG Meropenem susceptibility test by minimum inhibitory co ncentration <= NRG Nitrofurantoin susceptibility test by mi nimum inhibitory concentration R NRG Aztreonam susceptibility test by minimum inhibitory co ncentration <= NRG Capillary blood glucose measurement by g lucometer (mass/volume) - 05/18/17 11:17 Capillary blood glucose measurement by glucometer (mas s/volume) 159 mg/dL 70-110 Complete blood count (CBC) with automate d white blood cell (WBC) differential - 05/18/17 11:35 Blood leukocytes automated count (number/volume) 8.5 10*3/uL 4.3-11.0 Blood erythrocytes automated count (number/volume) 3.87 10*6/uL 4.35-5.85 Venous blood hemoglobin measurement (mass/volume) 10.4 g/dL 13.3-17.7 Blood hematocrit (volume fraction) 32 % 40-54 Automated erythrocyte mean corpuscular volume 83 [ foz_us] 80-99 Automated erythrocyte mean corpuscular h emoglobin (mass per erythrocyte) 27 pg 25-34 Automated erythrocyte mean corpuscular h emoglobin concentration measurement (mass/volume) 32 g/dL 32-36 Automated erythrocyte distribution width ratio 16. 4 % 10.0- 14.5 Automated blood platelet count (count/volume) 218 10*3/uL 130-400 Automated blood platelet mean volume measurement 10.1 [foz_us] 7.4-10.4 Automated blood neutrophils/100 leukocytes 79 % 42-75 Automated blood lymphocytes/100 leukocytes 15 % 12-44 Blood monocytes/100 leukocytes 6 % 0-12 Automated blood eosinophils/100 leukocytes 0 % 0-10 Automated blood basophils/100 leukocytes 1 % 0-10 Blood neutrophils automated count (number/volume) 6.7 10*3 1.8-7.8 Blood lymphocytes automated count (number/volume) 1.3 10*3 1.0-4.0 Blood monocytes automated count (number/volume) 0. 5 10*3 0.0-1.0 Automated eosinophil count 0.0 10*3/uL 0 .0-0.3 Automated blood basophil count (count/volume) 0.0 10*3/uL 0.0-0.1 Serum or plasma troponin i.cardiac measu rement (mass/volume) - 05/18/17 11:35 Serum or plasma troponin i.cardiac measurement (mass/v olume) < ng/mL <0.30 Complete blood count (CBC) with automate d white blood cell (WBC) differential - 07/26/17 16:13 Blood leukocytes automated count (number/volume) 4.7 10*3/uL 4.3-11.0 Blood erythrocytes automated count (number/volume) 3.58 10*6/uL 4.35-5.85 Venous blood hemoglobin measurement (mass/volume) 8.4 g/dL 13.3-17.7 Blood hematocrit (volume fraction) 27 % 40-54 Automated erythrocyte mean corpuscular volume 75 [ foz_us] 80-99 Automated erythrocyte mean corpuscular h emoglobin (mass per erythrocyte) 24 pg 25-34 Automated erythrocyte mean corpuscular h emoglobin concentration measurement (mass/volume) 31 g/dL 32-36 Automated erythrocyte distribution width ratio 16. 2 % 10.0- 14.5 Automated blood platelet count (count/volume) 237 10*3/uL 130-400 Automated blood platelet mean volume measurement 10.7 [foz_us] 7.4-10.4 Automated blood neutrophils/100 leukocytes 55 % 42-75 Automated blood lymphocytes/100 leukocytes 32 % 12-44 Blood monocytes/100 leukocytes 11 % 0-12 Automated blood eosinophils/100 leukocytes 1 % 0-10 Automated blood basophils/100 leukocytes 1 % 0-10 Blood neutrophils automated count (number/volume) 2.6 10*3 1.8-7.8 Blood lymphocytes automated count (number/volume) 1.5 10*3 1.0-4.0 Blood monocytes automated count (number/volume) 0. 5 10*3 0.0-1.0 Automated eosinophil count 0.1 10*3/uL 0 .0-0.3 Automated blood basophil count (count/volume) 0.0 10*3/uL 0.0-0.1 PT panel in platelet poor plasma by coag ulation assay - 07/26/17 16:13 Prothrombin time (PT) in platelet poor plasma by coagu lation assay 16.4 s 12.2-14.7 INR in platelet poor plasma or blood by coagulation as say 1.3 0.8-1.4 Activated partial thromboplastin time (a PTT) in platelet poor plasma bycoagulation assay - 07/26/17 16:13 Activated partial thromboplastin time (a PTT) in platelet poor plasma bycoagulation assay 30 s 24-35 Serum or plasma ethanol measurement (mas s/volume) - 07/26/17 16:13 Serum or plasma ethanol measurement (mass/volume) 38 mg/dL <10 Comprehensive metabolic panel - 07/26/17 16:13 Serum or plasma sodium measurement (moles/volume) 137 mmol/L 135-145 Serum or plasma potassium measurement (moles/volume) 4.3 mmol/L 3.6-5.0 Serum or plasma chloride measurement (moles/volume) 109 mmol/L 98-107 Carbon dioxide 17 mmol/L 21-32 Serum or plasma anion gap determination (moles/volume) 11 mmol/L 5-14 Serum or plasma urea nitrogen measurement (mass/volume ) 23 mg/dL 7-18 Serum or plasma creatinine measurement (mass/volume) 1.68 mg/dL 0.60-1.30 Serum or plasma urea nitrogen/creatinine mass ratio 14 NRG Serum or plasma creatinine measurement w ith calculation of estimated glomerular filtration rate 40 NRG Serum or plasma glucose measurement (mass/volume) 100 mg/dL 70-105 Serum or plasma calcium measurement (mass/volume) 9.0 mg/dL 8.5-10.1 Serum or plasma total bilirubin measurement (mass/volu me) 0.5 mg/dL 0.1-1.0 Serum or plasma alkaline phosphatase lindsay surement (enzymatic activity/volume) 71 U/L 40-136 Serum or plasma aspartate aminotransfera se measurement (enzymatic activity/volume) 25 U/L 5-34 Serum or plasma alanine aminotransferase measurement (enzymatic activity/volume) 16 U/L 0-55 Serum or plasma protein measurement (mass/volume) 6.5 g/dL 6.4-8.2 Serum or plasma albumin measurement (mass/volume) 4.0 g/dL 3.2-4.5 Magnesium - 07/26/17 16:13 Magnesium 2.1 mg/dL 1.8-2.4 Serum or plasma troponin i.cardiac measu rement (mass/volume) - 07/26/17 16:13 Serum or plasma troponin i.cardiac measurement (mass/v olume) < ng/mL <0.30 Myoglobin, serum - 07/26/17 16:13 Myoglobin, serum 326.5 ng/mL 10.0-92.0 Complete urinalysis with reflex to cultu re - 07/26/17 18:36 Urine color determination YELLOW NRG Urine clarity determination CLEAR NR G Urine pH measurement by test strip 6 5-9 Specific gravity of urine by test strip 1.015 1.016-1.022 Urine protein assay by test strip, semi-quantitative 2+ NEGATIVE Urine glucose detection by automated test strip NE GATIVE NEGATIVE Erythrocytes detection in urine sediment by light micr oscopy 2+ NEGATIVE Urine ketones detection by automated test strip NE GATIVE NEGATIVE Urine nitrite detection by test strip NEGATIVE NEGATIVE Urine total bilirubin detection by test strip NEGA TIVE NEGATIVE Urine urobilinogen measurement by automated test strip (mass/volume) NORMAL NORMAL Urine leukocyte esterase detection by dipstick 3+ NEGATIVE Automated urine sediment erythrocyte cou nt by microscopy (number/high power field) NONE NRG Automated urine sediment leukocyte count by microscopy (number/high power field) > [HPF] NRG Bacteria detection in urine sediment by light microsco py FEW NRG Crystals detection in urine sediment by light microsco py NONE NRG Casts detection in urine sediment by light microscopy PRESENT NRG Mucus detection in urine sediment by light microscopy NEGATIVE NRG Complete urinalysis with reflex to culture YES NRG Hyaline casts detection in urine sediment by light hunter roscopy RARE NRG Bacterial urine culture - 07/26/17 18:36 Bacterial urine culture SEE COMMEN NRG COLONY COUNT . NRG RED CELLS LEUKO REDUCED AS1 - 07/26/17 1 8:43 RED CELLS LEUKO REDUCED AS1 T RANSFUSED 07/26/172017 NRG Blood type T Indirect antibody screen pa curtis - 07/26/17 18:43 ABO+Rh group AP NRG Transfusion band number [id number] NRG Blood group antibody screen NEGATIVE NR G Complete blood count (CBC) with automate d white blood cell (WBC) differential - 07/26/17 20:11 Blood leukocytes automated count (number/volume) 4.1 10*3/uL 4.3-11.0 Blood erythrocytes automated count (number/volume) 3.62 10*6/uL 4.35-5.85 Venous blood hemoglobin measurement (mass/volume) 8.6 g/dL 13.3-17.7 Blood hematocrit (volume fraction) 27 % 40-54 Automated erythrocyte mean corpuscular volume 76 [ foz_us] 80-99 Automated erythrocyte mean corpuscular h emoglobin (mass per erythrocyte) 24 pg 25-34 Automated erythrocyte mean corpuscular h emoglobin concentration measurement (mass/volume) 31 g/dL 32-36 Automated erythrocyte distribution width ratio 16. 3 % 10.0- 14.5 Automated blood platelet count (count/volume) 232 10*3/uL 130-400 Automated blood platelet mean volume measurement 10.0 [foz_us] 7.4-10.4 Automated blood neutrophils/100 leukocytes 43 % 42-75 Automated blood lymphocytes/100 leukocytes 40 % 12-44 Blood monocytes/100 leukocytes 12 % 0-12 Automated blood eosinophils/100 leukocytes 4 % 0-10 Automated blood basophils/100 leukocytes 2 % 0-10 Blood neutrophils automated count (number/volume) 1.7 10*3 1.8-7.8 Blood lymphocytes automated count (number/volume) 1.6 10*3 1.0-4.0 Blood monocytes automated count (number/volume) 0. 5 10*3 0.0-1.0 Automated eosinophil count 0.1 10*3/uL 0 .0-0.3 Automated blood basophil count (count/volume) 0.1 10*3/uL 0.0-0.1 Serum or plasma troponin i.cardiac measu rement (mass/volume) - 07/26/17 23:05 Serum or plasma troponin i.cardiac measurement (mass/v olume) < ng/mL <0.30 Complete blood count (CBC) with automate d white blood cell (WBC) differential - 07/27/17 03:25 Blood leukocytes automated count (number/volume) 5.3 10*3/uL 4.3-11.0 Blood erythrocytes automated count (number/volume) 3.85 10*6/uL 4.35-5.85 Venous blood hemoglobin measurement (mass/volume) 9.3 g/dL 13.3-17.7 Blood hematocrit (volume fraction) 30 % 40-54 Automated erythrocyte mean corpuscular volume 77 [ foz_us] 80-99 Automated erythrocyte mean corpuscular h emoglobin (mass per erythrocyte) 24 pg 25-34 Automated erythrocyte mean corpuscular h emoglobin concentration measurement (mass/volume) 31 g/dL 32-36 Automated erythrocyte distribution width ratio 17. 3 % 10.0- 14.5 Automated blood platelet count (count/volume) 209 10*3/uL 130-400 Automated blood platelet mean volume measurement 10.8 [foz_us] 7.4-10.4 Automated blood neutrophils/100 leukocytes 53 % 42-75 Automated blood lymphocytes/100 leukocytes 30 % 12-44 Blood monocytes/100 leukocytes 13 % 0-12 Automated blood eosinophils/100 leukocytes 3 % 0-10 Automated blood basophils/100 leukocytes 1 % 0-10 Blood neutrophils automated count (number/volume) 2.8 10*3 1.8-7.8 Blood lymphocytes automated count (number/volume) 1.6 10*3 1.0-4.0 Blood monocytes automated count (number/volume) 0. 7 10*3 0.0-1.0 Automated eosinophil count 0.2 10*3/uL 0 .0-0.3 Automated blood basophil count (count/volume) 0.0 10*3/uL 0.0-0.1 Whole blood basic metabolic panel - 06/30 03:25 Serum or plasma sodium measurement (moles/volume) 139 mmol/L 135-145 Serum or plasma potassium measurement (moles/volume) 4.7 mmol/L 3.6-5.0 Serum or plasma chloride measurement (moles/volume) 110 mmol/L 98-107 Carbon dioxide 20 mmol/L 21-32 Serum or plasma anion gap determination (moles/volume) 9 mmol/L 5-14 Serum or plasma urea nitrogen measurement (mass/volume ) 27 mg/dL 7-18 Serum or plasma creatinine measurement (mass/volume) 1.32 mg/dL 0.60-1.30 Serum or plasma urea nitrogen/creatinine mass ratio 20 NRG Serum or plasma creatinine measurement w ith calculation of estimated glomerular filtration rate 53 NRG Serum or plasma glucose measurement (mass/volume) 83 mg/dL 70-105 Serum or plasma calcium measurement (mass/volume) 8.7 mg/dL 8.5-10.1 Lipid 1996 panel - 07/27/17 03:25 Serum or plasma triglyceride measurement (mass/volume) 57 mg/dL <150 Serum or plasma cholesterol measurement (mass/volume) 131 mg/dL < 200 Serum or plasma cholesterol in HDL measurement (mass/v olume) 45 mg/dL 40-60 Cholesterol in LDL [mass/volume] in serum or plasma by direct assay 82 mg/dL 1-129 Serum or plasma cholesterol in VLDL measurement (mass/ volume) 11 mg/dL 5-40 Complete blood count (CBC) with automate d white blood cell (WBC) differential - 07/28/17 06:28 Blood leukocytes automated count (number/volume) 4.1 10*3/uL 4.3-11.0 Blood erythrocytes automated count (number/volume) 4.32 10*6/uL 4.35-5.85 Venous blood hemoglobin measurement (mass/volume) 10.6 g/dL 13.3-17.7 Blood hematocrit (volume fraction) 33 % 40-54 Automated erythrocyte mean corpuscular volume 76 [ foz_us] 80-99 Automated erythrocyte mean corpuscular h emoglobin (mass per erythrocyte) 25 pg 25-34 Automated erythrocyte mean corpuscular h emoglobin concentration measurement (mass/volume) 32 g/dL 32-36 Automated erythrocyte distribution width ratio 17. 1 % 10.0- 14.5 Automated blood platelet count (count/volume) 213 10*3/uL 130-400 Automated blood platelet mean volume measurement 10.6 [foz_us] 7.4-10.4 Automated blood neutrophils/100 leukocytes 42 % 42-75 Automated blood lymphocytes/100 leukocytes 42 % 12-44 Blood monocytes/100 leukocytes 12 % 0-12 Automated blood eosinophils/100 leukocytes 3 % 0-10 Automated blood basophils/100 leukocytes 1 % 0-10 Blood neutrophils automated count (number/volume) 1.7 10*3 1.8-7.8 Blood lymphocytes automated count (number/volume) 1.7 10*3 1.0-4.0 Blood monocytes automated count (number/volume) 0. 5 10*3 0.0-1.0 Automated eosinophil count 0.1 10*3/uL 0 .0-0.3 Automated blood basophil count (count/volume) 0.1 10*3/uL 0.0-0.1 Comprehensive metabolic panel - 07/28/17 06:28 Serum or plasma sodium measurement (moles/volume) 138 mmol/L 135-145 Serum or plasma potassium measurement (moles/volume) 4.6 mmol/L 3.6-5.0 Serum or plasma chloride measurement (moles/volume) 108 mmol/L 98-107 Carbon dioxide 22 mmol/L 21-32 Serum or plasma anion gap determination (moles/volume) 8 mmol/L 5-14 Serum or plasma urea nitrogen measurement (mass/volume ) 21 mg/dL 7-18 Serum or plasma creatinine measurement (mass/volume) 0.98 mg/dL 0.60-1.30 Serum or plasma urea nitrogen/creatinine mass ratio 21 NRG Serum or plasma creatinine measurement w ith calculation of estimated glomerular filtration rate > NRG Serum or plasma glucose measurement (mass/volume) 79 mg/dL 70-105 Serum or plasma calcium measurement (mass/volume) 8.9 mg/dL 8.5-10.1 Serum or plasma total bilirubin measurement (mass/volu me) 0.7 mg/dL 0.1-1.0 Serum or plasma alkaline phosphatase lindsay surement (enzymatic activity/volume) 76 U/L 40-136 Serum or plasma aspartate aminotransfera se measurement (enzymatic activity/volume) 18 U/L 5-34 Serum or plasma alanine aminotransferase measurement (enzymatic activity/volume) 15 U/L 0-55 Serum or plasma protein measurement (mass/volume) 6.4 g/dL 6.4-8.2 Serum or plasma albumin measurement (mass/volume) 3.8 g/dL 3.2-4.5 Complete blood count (CBC) with automate d white blood cell (WBC) differential - 08/15/17 15:30 Blood leukocytes automated count (number/volume) 4.0 10*3/uL 4.3-11.0 Blood erythrocytes automated count (number/volume) 4.26 10*6/uL 4.35-5.85 Venous blood hemoglobin measurement (mass/volume) 10.4 g/dL 13.3-17.7 Blood hematocrit (volume fraction) 33 % 40-54 Automated erythrocyte mean corpuscular volume 77 [ foz_us] 80-99 Automated erythrocyte mean corpuscular h emoglobin (mass per erythrocyte) 24 pg 25-34 Automated erythrocyte mean corpuscular h emoglobin concentration measurement (mass/volume) 32 g/dL 32-36 Automated erythrocyte distribution width ratio 19. 4 % 10.0- 14.5 Automated blood platelet count (count/volume) 228 10*3/uL 130-400 Automated blood platelet mean volume measurement 9.2 [foz_us] 7.4-10.4 Automated blood neutrophils/100 leukocytes 51 % 42-75 Automated blood lymphocytes/100 leukocytes 33 % 12-44 Blood monocytes/100 leukocytes 13 % 0-12 Automated blood eosinophils/100 leukocytes 2 % 0-10 Automated blood basophils/100 leukocytes 1 % 0-10 Blood neutrophils automated count (number/volume) 2.0 10*3 1.8-7.8 Blood lymphocytes automated count (number/volume) 1.3 10*3 1.0-4.0 Blood monocytes automated count (number/volume) 0. 5 10*3 0.0-1.0 Automated eosinophil count 0.1 10*3/uL 0 .0-0.3 Automated blood basophil count (count/volume) 0.1 10*3/uL 0.0-0.1 Comprehensive metabolic panel - 08/15/17 15:30 Serum or plasma sodium measurement (moles/volume) 140 mmol/L 135-145 Serum or plasma potassium measurement (moles/volume) 4.5 mmol/L 3.6-5.0 Serum or plasma chloride measurement (moles/volume) 112 mmol/L 98-107 Carbon dioxide 21 mmol/L 21-32 Serum or plasma anion gap determination (moles/volume) 7 mmol/L 5-14 Serum or plasma urea nitrogen measurement (mass/volume ) 18 mg/dL 7-18 Serum or plasma creatinine measurement (mass/volume) 1.32 mg/dL 0.60-1.30 Serum or plasma urea nitrogen/creatinine mass ratio 14 NRG Serum or plasma creatinine measurement w ith calculation of estimated glomerular filtration rate 53 NRG Serum or plasma glucose measurement (mass/volume) 87 mg/dL 70-105 Serum or plasma calcium measurement (mass/volume) 9.1 mg/dL 8.5-10.1 Serum or plasma total bilirubin measurement (mass/volu me) 0.8 mg/dL 0.1-1.0 Serum or plasma alkaline phosphatase lindsay surement (enzymatic activity/volume) 77 U/L 40-136 Serum or plasma aspartate aminotransfera se measurement (enzymatic activity/volume) 17 U/L 5-34 Serum or plasma alanine aminotransferase measurement (enzymatic activity/volume) 13 U/L 0-55 Serum or plasma protein measurement (mass/volume) 6.7 g/dL 6.4-8.2 Serum or plasma albumin measurement (mass/volume) 4.1 g/dL 3.2-4.5 Serum or plasma ethanol measurement (mas s/volume) - 08/15/17 15:30 Serum or plasma ethanol measurement (mass/volume) < mg/dL <10 Complete urinalysis with reflex to cultu re - 08/15/17 16:25 Urine color determination YELLOW NRG Urine clarity determination CLEAR NR G Urine pH measurement by test strip 5 5-9 Specific gravity of urine by test strip 1.020 1.016-1.022 Urine protein assay by test strip, semi-quantitative 1+ NEGATIVE Urine glucose detection by automated test strip NE GATIVE NEGATIVE Erythrocytes detection in urine sediment by light micr oscopy 1+ NEGATIVE Urine ketones detection by automated test strip 1+ NEGATIVE Urine nitrite detection by test strip POSITIVE NEGATIVE Urine total bilirubin detection by test strip 1+ NEGATIVE Urine urobilinogen measurement by automated test strip (mass/volume) NORMAL NORMAL Urine leukocyte esterase detection by dipstick 3+ NEGATIVE Automated urine sediment erythrocyte cou nt by microscopy (number/high power field) [HPF] NRG Automated urine sediment leukocyte count by microscopy (number/high power field) [HPF] NRG Bacteria detection in urine sediment by light microsco py MODERATE NRG Crystals detection in urine sediment by light microsco py NONE NRG Casts detection in urine sediment by light microscopy NONE NRG Mucus detection in urine sediment by light microscopy NEGATIVE NRG Complete urinalysis with reflex to culture YES NRG Bacterial urine culture - 08/15/17 16:25 Bacterial urine culture [id number] NRG COLONY COUNT >100,000/ML NRG FTX;REPORTABLE RML SENT SENSITIVITY REPORT 08/18 09 :05 NRG RML Sensitivity Panel - 08/15/17 16:25 Gentamicin susceptibility test by minimum inhibitory c oncentration <= NRG Trimethoprim/sulfamethoxazole susceptibi lity test by minimum inhibitoryconcentration <= NRG Levofloxacin susceptibility test by minimum inhibitory concentration <= NRG Cefazolin susceptibility test by minimum inhibitory co ncentration > NRG Ceftriaxone susceptibility test by minimum inhibitory concentration <= NRG Ciprofloxacin susceptibility test by minimum inhibitor y concentration <= NRG Meropenem susceptibility test by minimum inhibitory co ncentration <= NRG Nitrofurantoin susceptibility test by mi nimum inhibitory concentration <= NRG Amoxicillin and clavulanate potassium susc HUNTER R NRG Complete blood count (CBC) with automate d white blood cell (WBC) differential - 09/13/17 17:10 Blood leukocytes automated count (number/volume) 4.0 10*3/uL 4.3-11.0 Blood erythrocytes automated count (number/volume) 4.72 10*6/uL 4.35-5.85 Venous blood hemoglobin measurement (mass/volume) 11.0 g/dL 13.3-17.7 Blood hematocrit (volume fraction) 35 % 40-54 Automated erythrocyte mean corpuscular volume 74 [ foz_us] 80-99 Automated erythrocyte mean corpuscular h emoglobin (mass per erythrocyte) 23 pg 25-34 Automated erythrocyte mean corpuscular h emoglobin concentration measurement (mass/volume) 32 g/dL 32-36 Automated erythrocyte distribution width ratio 21. 8 % 10.0- 14.5 Automated blood platelet count (count/volume) 217 10*3/uL 130-400 Automated blood platelet mean volume measurement 10.4 [foz_us] 7.4-10.4 Automated blood neutrophils/100 leukocytes 44 % 42-75 Automated blood lymphocytes/100 leukocytes 39 % 12-44 Blood monocytes/100 leukocytes 14 % 0-12 Automated blood eosinophils/100 leukocytes 3 % 0-10 Automated blood basophils/100 leukocytes 1 % 0-10 Blood neutrophils automated count (number/volume) 1.8 10*3 1.8-7.8 Blood lymphocytes automated count (number/volume) 1.5 10*3 1.0-4.0 Blood monocytes automated count (number/volume) 0. 6 10*3 0.0-1.0 Automated eosinophil count 0.1 10*3/uL 0 .0-0.3 Automated blood basophil count (count/volume) 0.1 10*3/uL 0.0-0.1 PT panel in platelet poor plasma by coag ulation assay - 09/13/17 17:10 Prothrombin time (PT) in platelet poor plasma by coagu lation assay 15.2 s 12.2-14.7 INR in platelet poor plasma or blood by coagulation as say 1.2 0.8-1.4 Activated partial thromboplastin time (a PTT) in platelet poor plasma bycoagulation assay - 09/13/17 17:10 Activated partial thromboplastin time (a PTT) in platelet poor plasma bycoagulation assay 29 s 24-35 Comprehensive metabolic panel - 09/13/17 17:10 Serum or plasma sodium measurement (moles/volume) 137 mmol/L 135-145 Serum or plasma potassium measurement (moles/volume) 4.8 mmol/L 3.6-5.0 Serum or plasma chloride measurement (moles/volume) 109 mmol/L 98-107 Carbon dioxide 22 mmol/L 21-32 Serum or plasma anion gap determination (moles/volume) 6 mmol/L 5-14 Serum or plasma urea nitrogen measurement (mass/volume ) 18 mg/dL 7-18 Serum or plasma creatinine measurement (mass/volume) 1.59 mg/dL 0.60-1.30 Serum or plasma urea nitrogen/creatinine mass ratio 11 NRG Serum or plasma creatinine measurement w ith calculation of estimated glomerular filtration rate 43 NRG Serum or plasma glucose measurement (mass/volume) 83 mg/dL 70-105 Serum or plasma calcium measurement (mass/volume) 9.6 mg/dL 8.5-10.1 Serum or plasma total bilirubin measurement (mass/volu me) 0.8 mg/dL 0.1-1.0 Serum or plasma alkaline phosphatase lindsay surement (enzymatic activity/volume) 78 U/L 40-136 Serum or plasma aspartate aminotransfera se measurement (enzymatic activity/volume) 21 U/L 5-34 Serum or plasma alanine aminotransferase measurement (enzymatic activity/volume) 12 U/L 0-55 Serum or plasma protein measurement (mass/volume) 7.3 g/dL 6.4-8.2 Serum or plasma albumin measurement (mass/volume) 4.5 g/dL 3.2-4.5 Magnesium - 09/13/17 17:10 Magnesium 2.1 mg/dL 1.8-2.4 Serum or plasma troponin i.cardiac measu rement (mass/volume) - 09/13/17 17:10 Serum or plasma troponin i.cardiac measurement (mass/v olume) < ng/mL <0.30 Serum or plasma lithium measurement (mol es/volume) - 09/13/17 17:10 BNP level 303.3 pg/mL <100.0 Myoglobin, serum - 09/13/17 17:10 Myoglobin, serum 92.2 ng/mL 10.0-92.0 Serum or plasma ethanol measurement (mas s/volume) - 09/13/17 17:10 Serum or plasma ethanol measurement (mass/volume) < mg/dL <10 Capillary blood glucose measurement by g lucometer (mass/volume) - 09/13/17 17:13 Capillary blood glucose measurement by glucometer (mas s/volume) 56 mg/dL 70-110 Capillary blood glucose measurement by g lucometer (mass/volume) - 09/13/17 18:04 Capillary blood glucose measurement by glucometer (mas s/volume) 97 mg/dL 70-110 Serum or plasma creatine kinase measurem ent (enzymatic activity/volume) - 09/13/17 23:05 Serum or plasma creatine kinase measurem ent (enzymatic activity/volume) 108 U/L 30-200 Serum or plasma troponin i.cardiac measu rement (mass/volume) - 09/13/17 23:05 Serum or plasma troponin i.cardiac measurement (mass/v olume) < ng/mL <0.30 Myoglobin, serum - 09/13/17 23:05 Myoglobin, serum 64.6 ng/mL 10.0-92.0 Complete blood count (CBC) with automate d white blood cell (WBC) differential - 09/14/17 05:45 Blood leukocytes automated count (number/volume) 4.1 10*3/uL 4.3-11.0 Blood erythrocytes automated count (number/volume) 4.44 10*6/uL 4.35-5.85 Venous blood hemoglobin measurement (mass/volume) 10.5 g/dL 13.3-17.7 Blood hematocrit (volume fraction) 33 % 40-54 Automated erythrocyte mean corpuscular volume 74 [ foz_us] 80-99 Automated erythrocyte mean corpuscular h emoglobin (mass per erythrocyte) 24 pg 25-34 Automated erythrocyte mean corpuscular h emoglobin concentration measurement (mass/volume) 32 g/dL 32-36 Automated erythrocyte distribution width ratio 21. 2 % 10.0- 14.5 Automated blood platelet count (count/volume) 205 10*3/uL 130-400 Automated blood platelet mean volume measurement 10.2 [foz_us] 7.4-10.4 Automated blood neutrophils/100 leukocytes 48 % 42-75 Automated blood lymphocytes/100 leukocytes 32 % 12-44 Blood monocytes/100 leukocytes 16 % 0-12 Automated blood eosinophils/100 leukocytes 3 % 0-10 Automated blood basophils/100 leukocytes 1 % 0-10 Blood neutrophils automated count (number/volume) 2.0 10*3 1.8-7.8 Blood lymphocytes automated count (number/volume) 1.3 10*3 1.0-4.0 Blood monocytes automated count (number/volume) 0. 7 10*3 0.0-1.0 Automated eosinophil count 0.1 10*3/uL 0 .0-0.3 Automated blood basophil count (count/volume) 0.1 10*3/uL 0.0-0.1 Comprehensive metabolic panel - 09/14/17 05:45 Serum or plasma sodium measurement (moles/volume) 137 mmol/L 135-145 Serum or plasma potassium measurement (moles/volume) 4.3 mmol/L 3.6-5.0 Serum or plasma chloride measurement (moles/volume) 109 mmol/L 98-107 Carbon dioxide 22 mmol/L 21-32 Serum or plasma anion gap determination (moles/volume) 6 mmol/L 5-14 Serum or plasma urea nitrogen measurement (mass/volume ) 17 mg/dL 7-18 Serum or plasma creatinine measurement (mass/volume) 1.26 mg/dL 0.60-1.30 Serum or plasma urea nitrogen/creatinine mass ratio 13 NRG Serum or plasma creatinine measurement w ith calculation of estimated glomerular filtration rate 56 NRG Serum or plasma glucose measurement (mass/volume) 83 mg/dL 70-105 Serum or plasma calcium measurement (mass/volume) 9.3 mg/dL 8.5-10.1 Serum or plasma total bilirubin measurement (mass/volu me) 0.6 mg/dL 0.1-1.0 Serum or plasma alkaline phosphatase lindsay surement (enzymatic activity/volume) 72 U/L 40-136 Serum or plasma aspartate aminotransfera se measurement (enzymatic activity/volume) 20 U/L 5-34 Serum or plasma alanine aminotransferase measurement (enzymatic activity/volume) 9 U/L 0-55 Serum or plasma protein measurement (mass/volume) 6.3 g/dL 6.4-8.2 Serum or plasma albumin measurement (mass/volume) 3.9 g/dL 3.2-4.5 Lipid 1996 panel - 09/14/17 05:45 Serum or plasma triglyceride measurement (mass/volume) 85 mg/dL <150 Serum or plasma cholesterol measurement (mass/volume) 163 mg/dL < 200 Serum or plasma cholesterol in HDL measurement (mass/v olume) 48 mg/dL 40-60 Cholesterol in LDL [mass/volume] in serum or plasma by direct assay 101 mg/dL 1-129 Serum or plasma cholesterol in VLDL measurement (mass/ volume) 17 mg/dL 5-40 Serum iron and total iron binding capaci ty panel - 09/14/17 05:45 Serum or plasma iron measurement (mass/volume) 24 % 40-180 Total iron binding capacity and transferrin saturation measurement 6 % 15-50 Iron binding capacity [mass/volume] in serum or plasma 418 % 280-380 UIBC (unsaturated iron binding capacity) 394 % 55-450 Serum or plasma ferritin measurement (mass/volume) 19.9 % 32.0-356.0 Complete blood count (CBC) with automate d white blood cell (WBC) differential - 09/16/17 06:01 Blood leukocytes automated count (number/volume) 3.9 10*3/uL 4.3-11.0 Blood erythrocytes automated count (number/volume) 4.89 10*6/uL 4.35-5.85 Venous blood hemoglobin measurement (mass/volume) 11.6 g/dL 13.3-17.7 Blood hematocrit (volume fraction) 36 % 40-54 Automated erythrocyte mean corpuscular volume 74 [ foz_us] 80-99 Automated erythrocyte mean corpuscular h emoglobin (mass per erythrocyte) 24 pg 25-34 Automated erythrocyte mean corpuscular h emoglobin concentration measurement (mass/volume) 32 g/dL 32-36 Automated erythrocyte distribution width ratio 21. 3 % 10.0- 14.5 Automated blood platelet count (count/volume) 208 10*3/uL 130-400 Automated blood platelet mean volume measurement 10.8 [foz_us] 7.4-10.4 Automated blood neutrophils/100 leukocytes 51 % 42-75 Automated blood lymphocytes/100 leukocytes 32 % 12-44 Blood monocytes/100 leukocytes 12 % 0-12 Automated blood eosinophils/100 leukocytes 4 % 0-10 Automated blood basophils/100 leukocytes 1 % 0-10 Blood neutrophils automated count (number/volume) 2.0 10*3 1.8-7.8 Blood lymphocytes automated count (number/volume) 1.2 10*3 1.0-4.0 Blood monocytes automated count (number/volume) 0. 5 10*3 0.0-1.0 Automated eosinophil count 0.2 10*3/uL 0 .0-0.3 Automated blood basophil count (count/volume) 0.0 10*3/uL 0.0-0.1 Whole blood basic metabolic panel - 08/29 06:01 Serum or plasma sodium measurement (moles/volume) 136 mmol/L 135-145 Serum or plasma potassium measurement (moles/volume) 4.3 mmol/L 3.6-5.0 Serum or plasma chloride measurement (moles/volume) 102 mmol/L 98-107 Carbon dioxide 26 mmol/L 21-32 Serum or plasma anion gap determination (moles/volume) 8 mmol/L 5-14 Serum or plasma urea nitrogen measurement (mass/volume ) 22 mg/dL 7-18 Serum or plasma creatinine measurement (mass/volume) 1.11 mg/dL 0.60-1.30 Serum or plasma urea nitrogen/creatinine mass ratio 20 NRG Serum or plasma creatinine measurement w ith calculation of estimated glomerular filtration rate > NRG Serum or plasma glucose measurement (mass/volume) 81 mg/dL 70-105 Serum or plasma calcium measurement (mass/volume) 10.1 mg/dL 8.5-10.1 Stool occult blood screen - 09/16/17 08: 53 Stool gastrointestinal hemoglobin detection NEGATI VE NEGATIVE Complete blood count (CBC) with automate d white blood cell (WBC) differential - 09/17/17 05:15 Blood leukocytes automated count (number/volume) 5.6 10*3/uL 4.3-11.0 Blood erythrocytes automated count (number/volume) 4.50 10*6/uL 4.35-5.85 Venous blood hemoglobin measurement (mass/volume) 10.7 g/dL 13.3-17.7 Blood hematocrit (volume fraction) 33 % 40-54 Automated erythrocyte mean corpuscular volume 74 [ foz_us] 80-99 Automated erythrocyte mean corpuscular h emoglobin (mass per erythrocyte) 24 pg 25-34 Automated erythrocyte mean corpuscular h emoglobin concentration measurement (mass/volume) 32 g/dL 32-36 Automated erythrocyte distribution width ratio 21. 1 % 10.0- 14.5 Automated blood platelet count (count/volume) 196 10*3/uL 130-400 Automated blood platelet mean volume measurement 11.0 [foz_us] 7.4-10.4 Automated blood neutrophils/100 leukocytes 51 % 42-75 Automated blood lymphocytes/100 leukocytes 30 % 12-44 Blood monocytes/100 leukocytes 15 % 0-12 Automated blood eosinophils/100 leukocytes 5 % 0-10 Automated blood basophils/100 leukocytes 1 % 0-10 Blood neutrophils automated count (number/volume) 2.8 10*3 1.8-7.8 Blood lymphocytes automated count (number/volume) 1.7 10*3 1.0-4.0 Blood monocytes automated count (number/volume) 0. 8 10*3 0.0-1.0 Automated eosinophil count 0.3 10*3/uL 0 .0-0.3 Automated blood basophil count (count/volume) 0.0 10*3/uL 0.0-0.1 Whole blood basic metabolic panel - 08/29 03/17 05:15 Serum or plasma sodium measurement (moles/volume) 136 mmol/L 135-145 Serum or plasma potassium measurement (moles/volume) 4.6 mmol/L 3.6-5.0 Serum or plasma chloride measurement (moles/volume) 104 mmol/L 98-107 Carbon dioxide 25 mmol/L 21-32 Serum or plasma anion gap determination (moles/volume) 7 mmol/L 5-14 Serum or plasma urea nitrogen measurement (mass/volume ) 26 mg/dL 7-18 Serum or plasma creatinine measurement (mass/volume) 1.12 mg/dL 0.60-1.30 Serum or plasma urea nitrogen/creatinine mass ratio 23 NRG Serum or plasma creatinine measurement w ith calculation of estimated glomerular filtration rate > NRG Serum or plasma glucose measurement (mass/volume) 84 mg/dL 70-105 Serum or plasma calcium measurement (mass/volume) 9.6 mg/dL 8.5-10.1 Methicillin resistant Staphylococcus aur eus (MRSA) screening culture - 09/18/17 11:00 Methicillin resistant Staphylococcus aureus (MRSA) scr eening culture NEG NRG Complete blood count (CBC) with automate d white blood cell (WBC) differential - 09/19/17 05:05 Blood leukocytes automated count (number/volume) 5.3 10*3/uL 4.3-11.0 Blood erythrocytes automated count (number/volume) 4.56 10*6/uL 4.35-5.85 Venous blood hemoglobin measurement (mass/volume) 10.6 g/dL 13.3-17.7 Blood hematocrit (volume fraction) 34 % 40-54 Automated erythrocyte mean corpuscular volume 75 [ foz_us] 80-99 Automated erythrocyte mean corpuscular h emoglobin (mass per erythrocyte) 23 pg 25-34 Automated erythrocyte mean corpuscular h emoglobin concentration measurement (mass/volume) 31 g/dL 32-36 Automated erythrocyte distribution width ratio 21. 9 % 10.0- 14.5 Automated blood platelet count (count/volume) 199 10*3/uL 130-400 Automated blood platelet mean volume measurement 10.8 [foz_us] 7.4-10.4 Automated blood neutrophils/100 leukocytes 49 % 42-75 Automated blood lymphocytes/100 leukocytes 32 % 12-44 Blood monocytes/100 leukocytes 14 % 0-12 Automated blood eosinophils/100 leukocytes 5 % 0-10 Automated blood basophils/100 leukocytes 1 % 0-10 Blood neutrophils automated count (number/volume) 2.6 10*3 1.8-7.8 Blood lymphocytes automated count (number/volume) 1.7 10*3 1.0-4.0 Blood monocytes automated count (number/volume) 0. 7 10*3 0.0-1.0 Automated eosinophil count 0.3 10*3/uL 0 .0-0.3 Automated blood basophil count (count/volume) 0.0 10*3/uL 0.0-0.1 Comprehensive metabolic panel - 09/19/17 05:05 Serum or plasma sodium measurement (moles/volume) 138 mmol/L 135-145 Serum or plasma potassium measurement (moles/volume) 4.7 mmol/L 3.6-5.0 Serum or plasma chloride measurement (moles/volume) 104 mmol/L 98-107 Carbon dioxide 27 mmol/L 21-32 Serum or plasma anion gap determination (moles/volume) 7 mmol/L 5-14 Serum or plasma urea nitrogen measurement (mass/volume ) 26 mg/dL 7-18 Serum or plasma creatinine measurement (mass/volume) 1.11 mg/dL 0.60-1.30 Serum or plasma urea nitrogen/creatinine mass ratio 23 NRG Serum or plasma creatinine measurement w ith calculation of estimated glomerular filtration rate > NRG Serum or plasma glucose measurement (mass/volume) 84 mg/dL 70-105 Serum or plasma calcium measurement (mass/volume) 9.7 mg/dL 8.5-10.1 Serum or plasma total bilirubin measurement (mass/volu me) 0.5 mg/dL 0.1-1.0 Serum or plasma alkaline phosphatase lindsay surement (enzymatic activity/volume) 75 U/L 40-136 Serum or plasma aspartate aminotransfera se measurement (enzymatic activity/volume) 15 U/L 5-34 Serum or plasma alanine aminotransferase measurement (enzymatic activity/volume) 7 U/L 0-55 Serum or plasma protein measurement (mass/volume) 6.3 g/dL 6.4-8.2 Serum or plasma albumin measurement (mass/volume) 4.0 g/dL 3.2-4.5 PT panel in platelet poor plasma by coag ulation assay - 09/19/17 05:05 Prothrombin time (PT) in platelet poor plasma by coagu lation assay 14.7 s 12.2-14.7 INR in platelet poor plasma or blood by coagulation as say 1.1 0.8-1.4 Complete blood count (CBC) with automate d white blood cell (WBC) differential - 09/24/17 17:55 Blood leukocytes automated count (number/volume) 6.1 10*3/uL 4.3-11.0 Blood erythrocytes automated count (number/volume) 4.66 10*6/uL 4.35-5.85 Venous blood hemoglobin measurement (mass/volume) 11.3 g/dL 13.3-17.7 Blood hematocrit (volume fraction) 35 % 40-54 Automated erythrocyte mean corpuscular volume 74 [ foz_us] 80-99 Automated erythrocyte mean corpuscular h emoglobin (mass per erythrocyte) 24 pg 25-34 Automated erythrocyte mean corpuscular h emoglobin concentration measurement (mass/volume) 33 g/dL 32-36 Automated erythrocyte distribution width ratio 22. 6 % 10.0- 14.5 Automated blood platelet count (count/volume) 224 10*3/uL 130-400 Automated blood platelet mean volume measurement 10.2 [foz_us] 7.4-10.4 Automated blood neutrophils/100 leukocytes 69 % 42-75 Automated blood lymphocytes/100 leukocytes 14 % 12-44 Blood monocytes/100 leukocytes 15 % 0-12 Automated blood eosinophils/100 leukocytes 2 % 0-10 Automated blood basophils/100 leukocytes 1 % 0-10 Blood neutrophils automated count (number/volume) 4.2 10*3 1.8-7.8 Blood lymphocytes automated count (number/volume) 0.8 10*3 1.0-4.0 Blood monocytes automated count (number/volume) 0. 9 10*3 0.0-1.0 Automated eosinophil count 0.1 10*3/uL 0 .0-0.3 Automated blood basophil count (count/volume) 0.0 10*3/uL 0.0-0.1 Comprehensive metabolic panel - 09/24/17 17:55 Serum or plasma sodium measurement (moles/volume) 136 mmol/L 135-145 Serum or plasma potassium measurement (moles/volume) 4.4 mmol/L 3.6-5.0 Serum or plasma chloride measurement (moles/volume) 102 mmol/L 98-107 Carbon dioxide 22 mmol/L 21-32 Serum or plasma anion gap determination (moles/volume) 12 mmol/L 5-14 Serum or plasma urea nitrogen measurement (mass/volume ) 24 mg/dL 7-18 Serum or plasma creatinine measurement (mass/volume) 1.38 mg/dL 0.60-1.30 Serum or plasma urea nitrogen/creatinine mass ratio 17 NRG Serum or plasma creatinine measurement w ith calculation of estimated glomerular filtration rate 51 NRG Serum or plasma glucose measurement (mass/volume) 126 mg/dL 70-105 Serum or plasma calcium measurement (mass/volume) 10.0 mg/dL 8.5-10.1 Serum or plasma total bilirubin measurement (mass/volu me) 0.8 mg/dL 0.1-1.0 Serum or plasma alkaline phosphatase lindsay surement (enzymatic activity/volume) 77 U/L 40-136 Serum or plasma aspartate aminotransfera se measurement (enzymatic activity/volume) 18 U/L 5-34 Serum or plasma alanine aminotransferase measurement (enzymatic activity/volume) 11 U/L 0-55 Serum or plasma protein measurement (mass/volume) 7.3 g/dL 6.4-8.2 Serum or plasma albumin measurement (mass/volume) 4.4 g/dL 3.2-4.5 Serum or plasma lithium measurement (mol es/volume) - 09/24/17 17:55 BNP level 291.9 pg/mL <100.0 Serum or plasma troponin i.cardiac measu rement (mass/volume) - 09/24/17 17:55 Serum or plasma troponin i.cardiac measurement (mass/v olume) < ng/mL <0.30 Complete urinalysis with reflex to cultu re - 09/24/17 18:00 Urine color determination YELLOW NRG Urine clarity determination CLEAR NR G Urine pH measurement by test strip 6 5-9 Specific gravity of urine by test strip 1.020 1.016-1.022 Urine protein assay by test strip, semi-quantitative 2+ NEGATIVE Urine glucose detection by automated test strip NE GATIVE NEGATIVE Erythrocytes detection in urine sediment by light micr oscopy 4+ NEGATIVE Urine ketones detection by automated test strip NE GATIVE NEGATIVE Urine nitrite detection by test strip NEGATIVE NEGATIVE Urine total bilirubin detection by test strip 1+ NEGATIVE Urine urobilinogen measurement by automated test strip (mass/volume) 1 mg/dL NORMAL Urine leukocyte esterase detection by dipstick 3+ NEGATIVE Automated urine sediment erythrocyte cou nt by microscopy (number/high power field) [HPF] NRG Automated urine sediment leukocyte count by microscopy (number/high power field) [HPF] NRG Bacteria detection in urine sediment by light microsco py TRACE NRG Squamous epithelial cells detection in u rine sediment by light microscopy NONE NRG Crystals detection in urine sediment by light microsco py NONE NRG Casts detection in urine sediment by light microscopy NONE NRG Mucus detection in urine sediment by light microscopy NEGATIVE NRG Complete urinalysis with reflex to culture YES NRG Fibrin D-dimer FEU measurement in platel et poor plasma (mass/volume) - 09/24/17 18:00 Fibrin D-dimer FEU measurement in platelet poor plasma (mass/volume) 14.89 ug/mL 0.00-0.49 Bacterial urine culture - 09/24/17 18:00 Bacterial urine culture RML NRG COLONY COUNT . NRG FTX;REPORTABLE RML SENT SENSITIVITY REPORT 09/26 16 :05 NRG RML Sensitivity Panel - 09/24/17 18:00 Gentamicin susceptibility test by minimum inhibitory c oncentration <= NRG Trimethoprim/sulfamethoxazole susceptibi lity test by minimum inhibitoryconcentration R NRG Levofloxacin susceptibility test by minimum inhibitory concentration <= NRG Ceftriaxone susceptibility test by minimum inhibitory concentration R NRG Ciprofloxacin susceptibility test by minimum inhibitor y concentration 2 NRG Complete urinalysis with reflex to cultu re - 03/08/18 13:03 Urine color determination RED NRG Urine clarity determination BLOODY NR G Urine pH measurement by test strip 5 5-9 Specific gravity of urine by test strip 1.015 1.016-1.022 Urine protein assay by test strip, semi-quantitative 4+ NEGATIVE Urine glucose detection by automated test strip NE GATIVE NEGATIVE Erythrocytes detection in urine sediment by light micr oscopy 5+ NEGATIVE Urine ketones detection by automated test strip 1+ NEGATIVE Urine nitrite detection by test strip NEGATIVE NEGATIVE Urine total bilirubin detection by test strip NEGA TIVE NEGATIVE Urine urobilinogen measurement by automated test strip (mass/volume) NORMAL NORMAL Urine leukocyte esterase detection by dipstick 3+ NEGATIVE Automated urine sediment erythrocyte cou nt by microscopy (number/high power field) > [HPF] NRG Automated urine sediment leukocyte count by microscopy (number/high power field) [HPF] NRG Bacteria detection in urine sediment by light microsco py TRACE NRG Crystals detection in urine sediment by light microsco py NONE NRG Casts detection in urine sediment by light microscopy NONE NRG Mucus detection in urine sediment by light microscopy NEGATIVE NR Complete urinalysis with reflex to culture YES [facility] Bacterial urine culture - 03/08/18 13:03 Bacterial urine culture [id number] NR COLONY COUNT . NR FTX;REPORTABLE 80,000 CFU/ML NR FREE TEXT ENTRY 2 SUSCEPTIBILITIES REPORTED 9, 1106 [facility] Sensitivity Panel - 03/08/18 13:03 Gentamicin susceptibility test by minimum inhibitory c oncentration <= NRG Trimethoprim/sulfamethoxazole susceptibi lity test by minimum inhibitoryconcentration > NRG Levofloxacin susceptibility test by minimum inhibitory concentration 2 NRG Ampicillin susceptibility test by minimum inhibitory c oncentration > NRG Cefazolin susceptibility test by minimum inhibitory co ncentration > NRG Ceftriaxone susceptibility test by minimum inhibitory concentration <= NRG Ciprofloxacin susceptibility test by minimum inhibitor y concentration 2 NRG Meropenem susceptibility test by minimum inhibitory co ncentration <= NRG Nitrofurantoin susceptibility test by mi nimum inhibitory concentration R NRG Amoxicillin and clavulanate potassium susc [facility] - 03/08/18 13:03 Gentamicin susceptibility test by minimum inhibitory c oncentration <= NRG Levofloxacin susceptibility test by minimum inhibitory concentration 2 NRG Tobramycin susceptibility test by minimum inhibitory c oncentration S NRG Piperacillin/tazobactam susceptibility t est by minimum inhibitory concentration S NRG Ciprofloxacin susceptibility test by minimum inhibitor y concentration > NRG Meropenem susceptibility test by minimum inhibitory co ncentration 0.5 NRG Aztreonam susceptibility test by minimum inhibitory co ncentration <= NRG Cefepime susceptibility test by minimum inhibitory con centration <= NRG Imipenem susceptibility test by minimum inhibitory con centration <= NRG Ceftazidime susceptibility test by minimum inhibitory concentration <= NRG Complete blood count (CBC) with automate d white blood cell (WBC) differential - 03/12/18 12:46 Blood leukocytes automated count (number/volume) 8.5 10*3/uL 4.3-11.0 Blood erythrocytes automated count (number/volume) 5.10 10*6/uL 4.35-5.85 Venous blood hemoglobin measurement (mass/volume) 13.1 g/dL 13.3-17.7 Blood hematocrit (volume fraction) 41 % 40-54 Automated erythrocyte mean corpuscular volume 79 [ foz_us] 80-99 Automated erythrocyte mean corpuscular h emoglobin (mass per erythrocyte) 26 pg 25-34 Automated erythrocyte mean corpuscular h emoglobin concentration measurement (mass/volume) 32 g/dL 32-36 Automated erythrocyte distribution width ratio 17. 3 % 10.0- 14.5 Automated blood platelet count (count/volume) 205 10*3/uL 130-400 Automated blood platelet mean volume measurement 10.7 [foz_us] 7.4-10.4 Automated blood neutrophils/100 leukocytes 74 % 42-75 Automated blood lymphocytes/100 leukocytes 13 % 12-44 Blood monocytes/100 leukocytes 11 % 0-12 Automated blood eosinophils/100 leukocytes 1 % 0-10 Automated blood basophils/100 leukocytes 0 % 0-10 Blood neutrophils automated count (number/volume) 6.3 10*3 1.8-7.8 Blood lymphocytes automated count (number/volume) 1.1 10*3 1.0-4.0 Blood monocytes automated count (number/volume) 1. 0 10*3 0.0-1.0 Automated eosinophil count 0.1 10*3/uL 0 .0-0.3 Automated blood basophil count (count/volume) 0.0 10*3/uL 0.0-0.1 PT panel in platelet poor plasma by coag ulation assay - 03/12/18 12:46 Prothrombin time (PT) in platelet poor plasma by coagu lation assay 14.6 s 12.2-14.7 INR in platelet poor plasma or blood by coagulation as say 1.1 0.8-1.4 Activated partial thromboplastin time (a PTT) in platelet poor plasma bycoagulation assay - 03/12/18 12:46 Activated partial thromboplastin time (a PTT) in platelet poor plasma bycoagulation assay 30 s 24-35 Comprehensive metabolic panel - 03/12/18 12:46 Serum or plasma sodium measurement (moles/volume) 137 mmol/L 135-145 Serum or plasma potassium measurement (moles/volume) 4.0 mmol/L 3.6-5.0 Serum or plasma chloride measurement (moles/volume) 103 mmol/L 98-107 Carbon dioxide 20 mmol/L 21-32 Serum or plasma anion gap determination (moles/volume) 14 mmol/L 5-14 Serum or plasma urea nitrogen measurement (mass/volume ) 17 mg/dL 7-18 Serum or plasma creatinine measurement (mass/volume) 1.43 mg/dL 0.60-1.30 Serum or plasma urea nitrogen/creatinine mass ratio 12 NRG Serum or plasma creatinine measurement w ith calculation of estimated glomerular filtration rate 48 NRG Serum or plasma glucose measurement (mass/volume) 88 mg/dL 70-105 Serum or plasma calcium measurement (mass/volume) 10.1 mg/dL 8.5-10.1 Serum or plasma total bilirubin measurement (mass/volu me) 1.6 mg/dL 0.1-1.0 Serum or plasma alkaline phosphatase lindsay surement (enzymatic activity/volume) 102 U/L 40-136 Serum or plasma aspartate aminotransfera se measurement (enzymatic activity/volume) 18 U/L 5-34 Serum or plasma alanine aminotransferase measurement (enzymatic activity/volume) 9 U/L 0-55 Serum or plasma protein measurement (mass/volume) 7.9 g/dL 6.4-8.2 Serum or plasma albumin measurement (mass/volume) 4.6 g/dL 3.2-4.5 Magnesium - 03/12/18 12:46 Magnesium 2.2 mg/dL 1.8-2.4 Serum or plasma troponin i.cardiac measu rement (mass/volume) - 03/12/18 12:46 Serum or plasma troponin i.cardiac measurement (mass/v olume) 0.098 ng/mL <0.028 Myoglobin, serum - 03/12/18 12:46 Myoglobin, serum 102.7 ng/mL 10.0-92.0 Lipase - 03/12/18 12:46 Lipase 29 U/L 8-78 Serum or plasma lithium measurement (mol es/volume) - 03/12/18 12:46 BNP level 441.6 pg/mL <100.0 Complete urinalysis with reflex to cultu re - 03/12/18 12:58 Urine color determination YELLOW NRG Urine clarity determination CLEAR NR G Urine pH measurement by test strip 7 5-9 Specific gravity of urine by test strip 1.015 1.016-1.022 Urine protein assay by test strip, semi-quantitative 2+ NEGATIVE Urine glucose detection by automated test strip NE GATIVE NEGATIVE Erythrocytes detection in urine sediment by light micr oscopy 5+ NEGATIVE Urine ketones detection by automated test strip NE GATIVE NEGATIVE Urine nitrite detection by test strip NEGATIVE NEGATIVE Urine total bilirubin detection by test strip NEGA TIVE NEGATIVE Urine urobilinogen measurement by automated test strip (mass/volume) NORMAL NORMAL Urine leukocyte esterase detection by dipstick 1+ NEGATIVE Automated urine sediment erythrocyte cou nt by microscopy (number/high power field) [HPF] NRG Automated urine sediment leukocyte count by microscopy (number/high power field) [HPF] NRG Bacteria detection in urine sediment by light microsco py NEGATIVE NRG Squamous epithelial cells detection in u rine sediment by light microscopy NONE NRG Crystals detection in urine sediment by light microsco py NONE NRG Casts detection in urine sediment by light microscopy NONE NRG Mucus detection in urine sediment by light microscopy NEGATIVE NRG Complete urinalysis with reflex to culture NO NRG Influenza virus A and B antigen detectio n - 03/12/18 12:58 FLU RESULT NEGATIVE FOR INFLUENZA A AND B ANTIGENS BY IA NRG Bacterial blood culture - 03/12/18 13:20 Bacterial blood culture NG NRG Blood lactic acid measurement (moles/vol ume) - 03/12/18 13:39 Blood lactic acid measurement (moles/volume) 2.03 mmol/L 0.50-2.00 Bacterial blood culture - 03/12/18 13:39 Bacterial blood culture NG NRG Serum or plasma lactate measurement (mol es/volume) - 03/12/18 15:55 Serum or plasma lactate measurement (moles/volume) 1.21 mmol/L 0.50-2.00 Serum or plasma troponin i.cardiac measu rement (mass/volume) - 03/12/18 15:55 Serum or plasma troponin i.cardiac measurement (mass/v olume) 0.093 ng/mL <0.028 Complete blood count (CBC) with automate d white blood cell (WBC) differential - 07/18/18 18:05 Blood leukocytes automated count (number/volume) 5.7 10*3/uL 4.3-11.0 Blood erythrocytes automated count (number/volume) 4.92 10*6/uL 4.35-5.85 Venous blood hemoglobin measurement (mass/volume) 12.7 g/dL 13.3-17.7 Blood hematocrit (volume fraction) 39 % 40-54 Automated erythrocyte mean corpuscular volume 80 [ foz_us] 80-99 Automated erythrocyte mean corpuscular h emoglobin (mass per erythrocyte) 26 pg 25-34 Automated erythrocyte mean corpuscular h emoglobin concentration measurement (mass/volume) 32 g/dL 32-36 Automated erythrocyte distribution width ratio 17. 0 % 10.0- 14.5 Automated blood platelet count (count/volume) 216 10*3/uL 130-400 Automated blood platelet mean volume measurement 10.1 [foz_us] 7.4-10.4 Automated blood neutrophils/100 leukocytes 60 % 42-75 Automated blood lymphocytes/100 leukocytes 29 % 12-44 Blood monocytes/100 leukocytes 9 % 0-12 Automated blood eosinophils/100 leukocytes 1 % 0-10 Automated blood basophils/100 leukocytes 1 % 0-10 Blood neutrophils automated count (number/volume) 3.4 10*3 1.8-7.8 Blood lymphocytes automated count (number/volume) 1.7 10*3 1.0-4.0 Blood monocytes automated count (number/volume) 0. 5 10*3 0.0-1.0 Automated eosinophil count 0.0 10*3/uL 0 .0-0.3 Automated blood basophil count (count/volume) 0.0 10*3/uL 0.0-0.1 PT panel in platelet poor plasma by coag ulation assay - 07/18/18 18:05 Prothrombin time (PT) in platelet poor plasma by coagu lation assay 14.4 s 12.2-14.7 INR in platelet poor plasma or blood by coagulation as say 1.1 0.8-1.4 Activated partial thromboplastin time (a PTT) in platelet poor plasma bycoagulation assay - 07/18/18 18:05 Activated partial thromboplastin time (a PTT) in platelet poor plasma bycoagulation assay 29 s 24-35 Comprehensive metabolic panel - 07/18/18 18:05 Serum or plasma sodium measurement (moles/volume) 138 mmol/L 135-145 Serum or plasma potassium measurement (moles/volume) 4.1 mmol/L 3.6-5.0 Serum or plasma chloride measurement (moles/volume) 106 mmol/L 98-107 Carbon dioxide 19 mmol/L 21-32 Serum or plasma anion gap determination (moles/volume) 13 mmol/L 5-14 Serum or plasma urea nitrogen measurement (mass/volume ) 16 mg/dL 7-18 Serum or plasma creatinine measurement (mass/volume) 1.77 mg/dL 0.60-1.30 Serum or plasma urea nitrogen/creatinine mass ratio 9 NRG Serum or plasma creatinine measurement w ith calculation of estimated glomerular filtration rate 38 NRG Serum or plasma glucose measurement (mass/volume) 142 mg/dL 70-105 Serum or plasma calcium measurement (mass/volume) 9.6 mg/dL 8.5-10.1 Serum or plasma total bilirubin measurement (mass/volu me) 0.7 mg/dL 0.1-1.0 Serum or plasma alkaline phosphatase lindsay surement (enzymatic activity/volume) 81 U/L 40-136 Serum or plasma aspartate aminotransfera se measurement (enzymatic activity/volume) 21 U/L 5-34 Serum or plasma alanine aminotransferase measurement (enzymatic activity/volume) 18 U/L 0-55 Serum or plasma protein measurement (mass/volume) 6.5 g/dL 6.4-8.2 Serum or plasma albumin measurement (mass/volume) 4.0 g/dL 3.2-4.5 CALCIUM CORRECTED 9.6 mg/dL 8.5-10.1 Magnesium - 07/18/18 18:05 Magnesium 1.9 mg/dL 1.8-2.4 Serum or plasma creatine kinase measurem ent (enzymatic activity/volume) - 07/18/18 18:05 Serum or plasma creatine kinase measurem ent (enzymatic activity/volume) 183 U/L 30-200 Serum or plasma creatine kinase MB measu rement (enzymatic activity/volume) - 07/18/18 18:05 Serum or plasma creatine kinase MB measu rement (enzymatic activity/volume) 3.9 ng/mL <6.6 Serum or plasma troponin i.cardiac measu rement (mass/volume) - 07/18/18 18:05 Serum or plasma troponin i.cardiac measurement (mass/v olume) 0.072 ng/mL <0.028 Myoglobin, serum - 07/18/18 18:05 Myoglobin, serum 149.5 ng/mL 10.0-92.0 Serum or plasma amylase measurement (enz ymatic activity/volume) - 07/18/18 18:05 Serum or plasma amylase measurement (enzymatic activit y/volume) 126 U/L 25-125 Lipase - 07/18/18 18:05 Lipase 37 U/L 8-78 Serum or plasma lithium measurement (mol es/volume) - 07/18/18 18:05 BNP level 254.0 pg/mL <100.0 Complete blood count (CBC) with automate d white blood cell (WBC) differential - 07/19/18 03:00 Blood leukocytes automated count (number/volume) 4.8 10*3/uL 4.3-11.0 Blood erythrocytes automated count (number/volume) 4.33 10*6/uL 4.35-5.85 Venous blood hemoglobin measurement (mass/volume) 11.2 g/dL 13.3-17.7 Blood hematocrit (volume fraction) 35 % 40-54 Automated erythrocyte mean corpuscular volume 80 [ foz_us] 80-99 Automated erythrocyte mean corpuscular h emoglobin (mass per erythrocyte) 26 pg 25-34 Automated erythrocyte mean corpuscular h emoglobin concentration measurement (mass/volume) 32 g/dL 32-36 Automated erythrocyte distribution width ratio 16. 9 % 10.0- 14.5 Automated blood platelet count (count/volume) 190 10*3/uL 130-400 Automated blood platelet mean volume measurement 9.9 [foz_us] 7.4-10.4 Automated blood neutrophils/100 leukocytes 52 % 42-75 Automated blood lymphocytes/100 leukocytes 34 % 12-44 Blood monocytes/100 leukocytes 13 % 0-12 Automated blood eosinophils/100 leukocytes 1 % 0-10 Automated blood basophils/100 leukocytes 1 % 0-10 Blood neutrophils automated count (number/volume) 2.5 10*3 1.8-7.8 Blood lymphocytes automated count (number/volume) 1.6 10*3 1.0-4.0 Blood monocytes automated count (number/volume) 0. 6 10*3 0.0-1.0 Automated eosinophil count 0.1 10*3/uL 0 .0-0.3 Automated blood basophil count (count/volume) 0.0 10*3/uL 0.0-0.1 Comprehensive metabolic panel - 07/19/18 03:00 Serum or plasma sodium measurement (moles/volume) 140 mmol/L 135-145 Serum or plasma potassium measurement (moles/volume) 4.7 mmol/L 3.6-5.0 Serum or plasma chloride measurement (moles/volume) 110 mmol/L 98-107 Carbon dioxide 21 mmol/L 21-32 Serum or plasma anion gap determination (moles/volume) 9 mmol/L 5-14 Serum or plasma urea nitrogen measurement (mass/volume ) 19 mg/dL 7-18 Serum or plasma creatinine measurement (mass/volume) 1.59 mg/dL 0.60-1.30 Serum or plasma urea nitrogen/creatinine mass ratio 12 NRG Serum or plasma creatinine measurement w ith calculation of estimated glomerular filtration rate 43 NRG Serum or plasma glucose measurement (mass/volume) 90 mg/dL 70-105 Serum or plasma calcium measurement (mass/volume) 8.5 mg/dL 8.5-10.1 Serum or plasma total bilirubin measurement (mass/volu me) 0.4 mg/dL 0.1-1.0 Serum or plasma alkaline phosphatase lindsay surement (enzymatic activity/volume) 71 U/L 40-136 Serum or plasma aspartate aminotransfera se measurement (enzymatic activity/volume) 14 U/L 5-34 Serum or plasma alanine aminotransferase measurement (enzymatic activity/volume) 16 U/L 0-55 Serum or plasma protein measurement (mass/volume) 5.3 g/dL 6.4-8.2 Serum or plasma albumin measurement (mass/volume) 3.3 g/dL 3.2-4.5 CALCIUM CORRECTED 9.1 mg/dL 8.5-10.1 Magnesium - 07/19/18 03:00 Magnesium 1.8 mg/dL 1.8-2.4 Lipid 1996 panel - 07/19/18 03:00 Serum or plasma triglyceride measurement (mass/volume) 58 mg/dL <150 Serum or plasma cholesterol measurement (mass/volume) 148 mg/dL < 200 Serum or plasma cholesterol in HDL measurement (mass/v olume) 45 mg/dL 40-60 Cholesterol in LDL [mass/volume] in serum or plasma by direct assay 91 mg/dL 1-129 Serum or plasma cholesterol in VLDL measurement (mass/ volume) 12 mg/dL 5-40 THYROID STIMULATING HORMONE - 07/19/18 0 3:00 THYROID STIMULATING HORMONE 1.68 u[iU]/mL 0.35-4.94 Complete urinalysis with reflex to cultu re - 07/19/18 04:00 Urine color determination YELLOW NRG Urine clarity determination CLEAR NR G Urine pH measurement by test strip 8 5-9 Specific gravity of urine by test strip 1.020 1.016-1.022 Urine protein assay by test strip, semi-quantitative 2+ NEGATIVE Urine glucose detection by automated test strip NE GATIVE NEGATIVE Erythrocytes detection in urine sediment by light micr oscopy 4+ NEGATIVE Urine ketones detection by automated test strip NE GATIVE NEGATIVE Urine nitrite detection by test strip NEGATIVE NEGATIVE Urine total bilirubin detection by test strip NEGA TIVE NEGATIVE Urine urobilinogen measurement by automated test strip (mass/volume) NORMAL NORMAL Urine leukocyte esterase detection by dipstick 3+ NEGATIVE Automated urine sediment erythrocyte cou nt by microscopy (number/high power field) [HPF] NRG Automated urine sediment leukocyte count by microscopy (number/high power field) [HPF] NRG Bacteria detection in urine sediment by light microsco py FEW NRG Squamous epithelial cells detection in u rine sediment by light microscopy NONE NRG Crystals detection in urine sediment by light microsco py NONE NRG Casts detection in urine sediment by light microscopy NONE NRG Mucus detection in urine sediment by light microscopy LARGE NRG Complete urinalysis with reflex to culture YES NRG Bacterial urine culture - 07/19/18 04:00 Bacterial urine culture MIXED WITH NRG COLONY COUNT >100,000/ML NRG FTX;REPORTABLE SUSCEPTIBILITY REPORTED 07-21-18 05 NRG RML Sensitivity Panel - 07/19/18 04:00 Gentamicin susceptibility test by minimum inhibitory c oncentration > NRG Trimethoprim/sulfamethoxazole susceptibi lity test by minimum inhibitoryconcentration > NRG Levofloxacin susceptibility test by minimum inhibitory concentration 4 NRG Ampicillin susceptibility test by minimum inhibitory c oncentration > NRG Cefazolin susceptibility test by minimum inhibitory co ncentration > NRG Ceftriaxone susceptibility test by minimum inhibitory concentration <= NRG Ciprofloxacin susceptibility test by minimum inhibitor y concentration > NRG Meropenem susceptibility test by minimum inhibitory co ncentration <= NRG Nitrofurantoin susceptibility test by mi nimum inhibitory concentration > NRG Amoxicillin and clavulanate potassium susc HUNTER R NRG Serum or plasma troponin i.cardiac measu rement (mass/volume) - 07/19/18 10:19 Serum or plasma troponin i.cardiac measurement (mass/v olume) 0.155 ng/mL <0.028 Complete blood count (CBC) with automate d white blood cell (WBC) differential - 07/20/18 03:05 Blood leukocytes automated count (number/volume) 5.5 10*3/uL 4.3-11.0 Blood erythrocytes automated count (number/volume) 4.39 10*6/uL 4.35-5.85 Venous blood hemoglobin measurement (mass/volume) 11.3 g/dL 13.3-17.7 Blood hematocrit (volume fraction) 35 % 40-54 Automated erythrocyte mean corpuscular volume 79 [ foz_us] 80-99 Automated erythrocyte mean corpuscular h emoglobin (mass per erythrocyte) 26 pg 25-34 Automated erythrocyte mean corpuscular h emoglobin concentration measurement (mass/volume) 33 g/dL 32-36 Automated erythrocyte distribution width ratio 16. 7 % 10.0- 14.5 Automated blood platelet count (count/volume) 191 10*3/uL 130-400 Automated blood platelet mean volume measurement 10.5 [foz_us] 7.4-10.4 Automated blood neutrophils/100 leukocytes 53 % 42-75 Automated blood lymphocytes/100 leukocytes 32 % 12-44 Blood monocytes/100 leukocytes 11 % 0-12 Automated blood eosinophils/100 leukocytes 4 % 0-10 Automated blood basophils/100 leukocytes 1 % 0-10 Blood neutrophils automated count (number/volume) 2.9 10*3 1.8-7.8 Blood lymphocytes automated count (number/volume) 1.8 10*3 1.0-4.0 Blood monocytes automated count (number/volume) 0. 6 10*3 0.0-1.0 Automated eosinophil count 0.2 10*3/uL 0 .0-0.3 Automated blood basophil count (count/volume) 0.1 10*3/uL 0.0-0.1 Whole blood basic metabolic panel - 06/29 05/16 03:05 Serum or plasma sodium measurement (moles/volume) 135 mmol/L 135-145 Serum or plasma potassium measurement (moles/volume) 4.6 mmol/L 3.6-5.0 Serum or plasma chloride measurement (moles/volume) 107 mmol/L 98-107 Carbon dioxide 19 mmol/L 21-32 Serum or plasma anion gap determination (moles/volume) 9 mmol/L 5-14 Serum or plasma urea nitrogen measurement (mass/volume ) 17 mg/dL 7-18 Serum or plasma creatinine measurement (mass/volume) 0.97 mg/dL 0.60-1.30 Serum or plasma urea nitrogen/creatinine mass ratio 18 NRG Serum or plasma creatinine measurement w ith calculation of estimated glomerular filtration rate > NRG Serum or plasma glucose measurement (mass/volume) 79 mg/dL 70-105 Serum or plasma calcium measurement (mass/volume) 8.8 mg/dL 8.5-10.1 Magnesium - 07/20/18 03:05 Magnesium 1.7 mg/dL 1.8-2.4 Complete blood count (CBC) with automate d white blood cell (WBC) differential - 07/21/18 15:58 Blood leukocytes automated count (number/volume) 9.7 10*3/uL 4.3-11.0 Blood erythrocytes automated count (number/volume) 4.59 10*6/uL 4.35-5.85 Venous blood hemoglobin measurement (mass/volume) 11.8 g/dL 13.3-17.7 Blood hematocrit (volume fraction) 36 % 40-54 Automated erythrocyte mean corpuscular volume 78 [ foz_us] 80-99 Automated erythrocyte mean corpuscular h emoglobin (mass per erythrocyte) 26 pg 25-34 Automated erythrocyte mean corpuscular h emoglobin concentration measurement (mass/volume) 33 g/dL 32-36 Automated erythrocyte distribution width ratio 16. 7 % 10.0- 14.5 Automated blood platelet count (count/volume) 211 10*3/uL 130-400 Automated blood platelet mean volume measurement 10.3 [foz_us] 7.4-10.4 Automated blood neutrophils/100 leukocytes 83 % 42-75 Automated blood lymphocytes/100 leukocytes 8 % 12-44 Blood monocytes/100 leukocytes 8 % 0-12 Automated blood eosinophils/100 leukocytes 0 % 0-10 Automated blood basophils/100 leukocytes 0 % 0-10 Blood neutrophils automated count (number/volume) 8.1 10*3 1.8-7.8 Blood lymphocytes automated count (number/volume) 0.8 10*3 1.0-4.0 Blood monocytes automated count (number/volume) 0. 8 10*3 0.0-1.0 Automated eosinophil count 0.0 10*3/uL 0 .0-0.3 Automated blood basophil count (count/volume) 0.0 10*3/uL 0.0-0.1 Comprehensive metabolic panel - 07/21/18 15:58 Serum or plasma sodium measurement (moles/volume) 131 mmol/L 135-145 Serum or plasma potassium measurement (moles/volume) 4.2 mmol/L 3.6-5.0 Serum or plasma chloride measurement (moles/volume) 100 mmol/L 98-107 Carbon dioxide 24 mmol/L 21-32 Serum or plasma anion gap determination (moles/volume) 7 mmol/L 5-14 Serum or plasma urea nitrogen measurement (mass/volume ) 16 mg/dL 7-18 Serum or plasma creatinine measurement (mass/volume) 1.29 mg/dL 0.60-1.30 Serum or plasma urea nitrogen/creatinine mass ratio 12 NRG Serum or plasma creatinine measurement w ith calculation of estimated glomerular filtration rate 54 NRG Serum or plasma glucose measurement (mass/volume) 149 mg/dL 70-105 Serum or plasma calcium measurement (mass/volume) 9.6 mg/dL 8.5-10.1 Serum or plasma total bilirubin measurement (mass/volu me) 0.7 mg/dL 0.1-1.0 Serum or plasma alkaline phosphatase lindsay surement (enzymatic activity/volume) 82 U/L 40-136 Serum or plasma aspartate aminotransfera se measurement (enzymatic activity/volume) 14 U/L 5-34 Serum or plasma alanine aminotransferase measurement (enzymatic activity/volume) 14 U/L 0-55 Serum or plasma protein measurement (mass/volume) 6.8 g/dL 6.4-8.2 Serum or plasma albumin measurement (mass/volume) 4.1 g/dL 3.2-4.5 CALCIUM CORRECTED 9.5 mg/dL 8.5-10.1 Magnesium - 07/21/18 15:58 Magnesium 1.8 mg/dL 1.8-2.4 Serum or plasma troponin i.cardiac measu rement (mass/volume) - 07/21/18 15:58 Serum or plasma troponin i.cardiac measurement (mass/v olume) 0.159 ng/mL <0.028 Myoglobin, serum - 07/21/18 15:58 Myoglobin, serum 67.3 ng/mL 10.0-92.0 PT panel in platelet poor plasma by coag ulation assay - 07/21/18 15:58 Prothrombin time (PT) in platelet poor plasma by coagu lation assay 14.5 s 12.2-14.7 INR in platelet poor plasma or blood by coagulation as say 1.1 0.8-1.4 Activated partial thromboplastin time (a PTT) in platelet poor plasma bycoagulation assay - 07/21/18 15:58 Activated partial thromboplastin time (a PTT) in platelet poor plasma bycoagulation assay 31 s 24-35 Complete urinalysis with reflex to cultu re - 07/21/18 17:15 Urine color determination STRAW NRG Urine clarity determination SLIGHTLY CLOUDY NRG Urine pH measurement by test strip 6.5 5-9 Specific gravity of urine by test strip 1.005 1.016-1.022 Urine protein assay by test strip, semi-quantitative 2+ NEGATIVE Urine glucose detection by automated test strip NE GATIVE NEGATIVE Erythrocytes detection in urine sediment by light micr oscopy 4+ NEGATIVE Urine ketones detection by automated test strip NE GATIVE NEGATIVE Urine nitrite detection by test strip POSITIVE NEGATIVE Urine total bilirubin detection by test strip NEGA TIVE NEGATIVE Urine urobilinogen measurement by automated test strip (mass/volume) NORMAL NORMAL Urine leukocyte esterase detection by dipstick 3+ NEGATIVE Automated urine sediment erythrocyte cou nt by microscopy (number/high power field) > [HPF] NRG Automated urine sediment leukocyte count by microscopy (number/high power field) TNTC NRG Bacteria detection in urine sediment by light microsco py LARGE NRG Squamous epithelial cells detection in u rine sediment by light microscopy NONE NRG Crystals detection in urine sediment by light microsco py NONE NRG Casts detection in urine sediment by light microscopy NONE NRG Mucus detection in urine sediment by light microscopy MODERATE NRG Complete urinalysis with reflex to culture YES NRG Bacterial urine culture - 07/21/18 17:15 Bacterial urine culture [id number] NRG COLONY COUNT 70,000 cfu/ml NRG FTX;REPORTABLE SUSCEPTIBILITY REPORTED 07/25/18 11: 05 NRG FREE TEXT ENTRY 2 ID REPORTED 07/23/18 16:05 NRG RML Sensitivity Panel - 07/21/18 17:15 Gentamicin susceptibility test by minimum inhibitory c oncentration <= NRG Trimethoprim/sulfamethoxazole susceptibi lity test by minimum inhibitoryconcentration > NRG Levofloxacin susceptibility test by minimum inhibitory concentration 2 NRG Ampicillin susceptibility test by minimum inhibitory c oncentration > NRG Cefazolin susceptibility test by minimum inhibitory co ncentration > NRG Ceftriaxone susceptibility test by minimum inhibitory concentration <= NRG Ciprofloxacin susceptibility test by minimum inhibitor y concentration > NRG Meropenem susceptibility test by minimum inhibitory co ncentration <= NRG Nitrofurantoin susceptibility test by mi nimum inhibitory concentration > NRG Amoxicillin and clavulanate potassium susc HUNTER > NRG RML Sensitivity Panel - 07/21/18 17:15 Gentamicin susceptibility test by minimum inhibitory c oncentration <= NRG Levofloxacin susceptibility test by minimum inhibitory concentration <= NRG Tobramycin susceptibility test by minimum inhibitory c oncentration <= NRG Piperacillin/tazobactam susceptibility t est by minimum inhibitory concentration = NRG Ciprofloxacin susceptibility test by minimum inhibitor y concentration <= NRG Meropenem susceptibility test by minimum inhibitory co ncentration 0.5 NRG Aztreonam susceptibility test by minimum inhibitory co ncentration 8 NRG Cefepime susceptibility test by minimum inhibitory con centration 2 NRG Imipenem susceptibility test by minimum inhibitory con centration S NRG Ceftazidime susceptibility test by minimum inhibitory concentration <= NRG Serum or plasma troponin i.cardiac measu rement (mass/volume) - 07/21/18 18:56 Serum or plasma troponin i.cardiac measurement (mass/v olume) 0.145 ng/mL <0.028 Lipase - 07/21/18 18:56 Lipase 34 U/L 8-78 Complete blood count (CBC) with automate d white blood cell (WBC) differential - 08/31/18 03:27 Blood leukocytes automated count (number/volume) 6.4 10*3/uL 4.3-11.0 Blood erythrocytes automated count (number/volume) 4.44 10*6/uL 4.35-5.85 Venous blood hemoglobin measurement (mass/volume) 11.4 g/dL 13.3-17.7 Blood hematocrit (volume fraction) 35 % 40-54 Automated erythrocyte mean corpuscular volume 79 [ foz_us] 80-99 Automated erythrocyte mean corpuscular h emoglobin (mass per erythrocyte) 26 pg 25-34 Automated erythrocyte mean corpuscular h emoglobin concentration measurement (mass/volume) 33 g/dL 32-36 Automated erythrocyte distribution width ratio 17. 6 % 10.0- 14.5 Automated blood platelet count (count/volume) 194 10*3/uL 130-400 Automated blood platelet mean volume measurement 10.4 [foz_us] 7.4-10.4 Automated blood neutrophils/100 leukocytes 53 % 42-75 Automated blood lymphocytes/100 leukocytes 31 % 12-44 Blood monocytes/100 leukocytes 13 % 0-12 Automated blood eosinophils/100 leukocytes 2 % 0-10 Automated blood basophils/100 leukocytes 1 % 0-10 Blood neutrophils automated count (number/volume) 3.4 10*3 1.8-7.8 Blood lymphocytes automated count (number/volume) 2.0 10*3 1.0-4.0 Blood monocytes automated count (number/volume) 0. 8 10*3 0.0-1.0 Automated eosinophil count 0.1 10*3/uL 0 .0-0.3 Automated blood basophil count (count/volume) 0.0 10*3/uL 0.0-0.1 Fibrin D-dimer FEU measurement in platel et poor plasma (mass/volume) - 08/31/18 03:27 Fibrin D-dimer FEU measurement in platelet poor plasma (mass/volume) 0.38 ug/mL 0.00-0.49 PT panel in platelet poor plasma by coag ulation assay - 08/31/18 03:27 Prothrombin time (PT) in platelet poor plasma by coagu lation assay 13.6 s 12.2-14.7 INR in platelet poor plasma or blood by coagulation as say 1.0 0.8-1.4 Activated partial thromboplastin time (a PTT) in platelet poor plasma bycoagulation assay - 08/31/18 03:27 Activated partial thromboplastin time (a PTT) in platelet poor plasma bycoagulation assay 29 s 24-35 Comprehensive metabolic panel - 08/31/18 03:27 Serum or plasma sodium measurement (moles/volume) 135 mmol/L 135-145 Serum or plasma potassium measurement (moles/volume) 4.5 mmol/L 3.6-5.0 Serum or plasma chloride measurement (moles/volume) 105 mmol/L 98-107 Carbon dioxide 18 mmol/L 21-32 Serum or plasma anion gap determination (moles/volume) 12 mmol/L 5-14 Serum or plasma urea nitrogen measurement (mass/volume ) 24 mg/dL 7-18 Serum or plasma creatinine measurement (mass/volume) 1.37 mg/dL 0.60-1.30 Serum or plasma urea nitrogen/creatinine mass ratio 18 NRG Serum or plasma creatinine measurement w ith calculation of estimated glomerular filtration rate 51 NRG Serum or plasma glucose measurement (mass/volume) 84 mg/dL 70-105 Serum or plasma calcium measurement (mass/volume) 9.7 mg/dL 8.5-10.1 Serum or plasma total bilirubin measurement (mass/volu me) 0.6 mg/dL 0.1-1.0 Serum or plasma alkaline phosphatase lindsay surement (enzymatic activity/volume) 83 U/L 40-136 Serum or plasma aspartate aminotransfera se measurement (enzymatic activity/volume) 23 U/L 5-34 Serum or plasma alanine aminotransferase measurement (enzymatic activity/volume) 13 U/L 0-55 Serum or plasma protein measurement (mass/volume) 6.9 g/dL 6.4-8.2 Serum or plasma albumin measurement (mass/volume) 4.2 g/dL 3.2-4.5 CALCIUM CORRECTED 9.5 mg/dL 8.5-10.1 Magnesium - 08/31/18 03:27 Magnesium 2.2 mg/dL 1.8-2.4 Serum or plasma lithium measurement (mol es/volume) - 08/31/18 03:27 BNP PT 404.6 pg/mL <100.0 Serum or plasma troponin i.cardiac measu rement (mass/volume) - 08/31/18 03:27 Serum or plasma troponin i.cardiac measurement (mass/v olume) 0.115 ng/mL <0.028 Myoglobin, serum - 08/31/18 03:27 Myoglobin, serum 89.0 ng/mL 10.0-92.0 Complete urinalysis with reflex to cultu re - 08/31/18 04:30 Urine color determination YELLOW NRG Urine clarity determination VERY CLOUDY NRG Urine pH measurement by test strip 6.5 5-9 Specific gravity of urine by test strip 1.010 1.016-1.022 Urine protein assay by test strip, semi-quantitative 2+ NEGATIVE Urine glucose detection by automated test strip NE GATIVE NEGATIVE Erythrocytes detection in urine sediment by light micr oscopy 3+ NEGATIVE Urine ketones detection by automated test strip NE GATIVE NEGATIVE Urine nitrite detection by test strip POSITIVE NEGATIVE Urine total bilirubin detection by test strip NEGA TIVE NEGATIVE Urine urobilinogen measurement by automated test strip (mass/volume) NORMAL NORMAL Urine leukocyte esterase detection by dipstick 3+ NEGATIVE Automated urine sediment erythrocyte cou nt by microscopy (number/high power field) [HPF] NRG Automated urine sediment leukocyte count by microscopy (number/high power field) TNTC NRG Bacteria detection in urine sediment by light microsco py MODERATE NRG Squamous epithelial cells detection in u rine sediment by light microscopy NONE NRG Crystals detection in urine sediment by light microsco py NONE NRG Casts detection in urine sediment by light microscopy NONE NRG Mucus detection in urine sediment by light microscopy NEGATIVE NRG Complete urinalysis with reflex to culture YES NRG Urine drug screening test - 08/31/18 04: 30 Urine phencyclidine detection by screening method NEGATIVE NEGATIVE Urine benzodiazepines detection by screening method NEGATIVE NEGATIVE Urine cocaine detection NEGATIVE NEGATI VE Urine amphetamines detection by screening method N EGATIVE NEGATIVE Urine methamphetamine detection by screening method NEGATIVE NEGATIVE Urine cannabinoids detection by screening method N EGATIVE NEGATIVE Urine opiates detection by screening method NEGATI VE NEGATIVE Urine barbiturates detection NEGATIVE N EGATIVE Screening urine tricyclic antidepressants detection NEGATIVE NEGATIVE Urine methadone detection by screening method NEGA TIVE NEGATIVE Urine oxycodone detection NEGATIVE NEGA TIVE Urine propoxyphene detection NEGATIVE N EGATIVE Bacterial urine culture - 08/31/18 04:30 Bacterial urine culture [id number] NRG COLONY COUNT >100,000/ML NRG FTX;REPORTABLE SUSCEPTIBILITY REPORTED 09/03 11:07 NRG FREE TEXT ENTRY 2 ID REPORTED 09/01/18 15:30 NRG Dirithromycin susceptibility test by dis k diffusion - 08/31/18 04:30 Gentamicin susceptibility test by minimum inhibitory c oncentration > NRG Trimethoprim/sulfamethoxazole susceptibi lity test by minimum inhibitoryconcentration > NRG Levofloxacin susceptibility test by minimum inhibitory concentration 4 NRG Ampicillin susceptibility test by minimum inhibitory c oncentration > NRG Cefazolin susceptibility test by minimum inhibitory co ncentration > NRG Ceftriaxone susceptibility test by minimum inhibitory concentration <= NRG Ciprofloxacin susceptibility test by minimum inhibitor y concentration > NRG Meropenem susceptibility test by minimum inhibitory co ncentration <= NRG Nitrofurantoin susceptibility test by mi nimum inhibitory concentration R NRG Cefepime susceptibility test by minimum inhibitory con centration <= NRG Amoxicillin and clavulanate potassium susc HUNTER > NRG Dirithromycin susceptibility test by dis k diffusion - 08/31/18 04:30 Gentamicin susceptibility test by minimum inhibitory c oncentration <= NRG Trimethoprim/sulfamethoxazole susceptibi lity test by minimum inhibitoryconcentration > NRG Levofloxacin susceptibility test by minimum inhibitory concentration 2 NRG Ampicillin susceptibility test by minimum inhibitory c oncentration > NRG Cefazolin susceptibility test by minimum inhibitory co ncentration > NRG Ceftriaxone susceptibility test by minimum inhibitory concentration <= NRG Ciprofloxacin susceptibility test by minimum inhibitor y concentration > NRG Meropenem susceptibility test by minimum inhibitory co ncentration <= NRG Nitrofurantoin susceptibility test by mi nimum inhibitory concentration > NRG Cefepime susceptibility test by minimum inhibitory con centration <= NRG Amoxicillin and clavulanate potassium susc HUNTER > NRG Dirithromycin susceptibility test by dis k diffusion - 08/31/18 04:30 Gentamicin susceptibility test by minimum inhibitory c oncentration <= NRG Levofloxacin susceptibility test by minimum inhibitory concentration 2 NRG Tobramycin susceptibility test by minimum inhibitory c oncentration <= NRG Piperacillin/tazobactam susceptibility t est by minimum inhibitory concentration = NRG Ciprofloxacin susceptibility test by minimum inhibitor y concentration 1 NRG Meropenem susceptibility test by minimum inhibitory co ncentration 4 NRG Aztreonam susceptibility test by minimum inhibitory co ncentration > NRG Cefepime susceptibility test by minimum inhibitory con centration 8 NRG Imipenem susceptibility test by minimum inhibitory con centration 0.5 NRG Ceftazidime susceptibility test by minimum inhibitory concentration 8 NRG Serum or plasma troponin i.cardiac measu rement (mass/volume) - 08/31/18 07:24 Serum or plasma troponin i.cardiac measurement (mass/v olume) 0.103 ng/mL <0.028 Complete blood count (CBC) with automate d white blood cell (WBC) differential - 09/05/18 00:30 Blood leukocytes automated count (number/volume) 5.9 10*3/uL 4.3-11.0 Blood erythrocytes automated count (number/volume) 4.48 10*6/uL 4.35-5.85 Venous blood hemoglobin measurement (mass/volume) 11.6 g/dL 13.3-17.7 Blood hematocrit (volume fraction) 35 % 40-54 Automated erythrocyte mean corpuscular volume 79 [ foz_us] 80-99 Automated erythrocyte mean corpuscular h emoglobin (mass per erythrocyte) 26 pg 25-34 Automated erythrocyte mean corpuscular h emoglobin concentration measurement (mass/volume) 33 g/dL 32-36 Automated erythrocyte distribution width ratio 17. 3 % 10.0- 14.5 Automated blood platelet count (count/volume) 214 10*3/uL 130-400 Automated blood platelet mean volume measurement 9.6 [foz_us] 7.4-10.4 Automated blood neutrophils/100 leukocytes 54 % 42-75 Automated blood lymphocytes/100 leukocytes 30 % 12-44 Blood monocytes/100 leukocytes 11 % 0-12 Automated blood eosinophils/100 leukocytes 4 % 0-10 Automated blood basophils/100 leukocytes 1 % 0-10 Blood neutrophils automated count (number/volume) 3.2 10*3 1.8-7.8 Blood lymphocytes automated count (number/volume) 1.8 10*3 1.0-4.0 Blood monocytes automated count (number/volume) 0. 6 10*3 0.0-1.0 Automated eosinophil count 0.3 10*3/uL 0 .0-0.3 Automated blood basophil count (count/volume) 0.0 10*3/uL 0.0-0.1 Whole blood basic metabolic panel - 11/16 00:30 Serum or plasma sodium measurement (moles/volume) 132 mmol/L 135-145 Serum or plasma potassium measurement (moles/volume) 4.1 mmol/L 3.6-5.0 Serum or plasma chloride measurement (moles/volume) 99 mmol/L 98-107 Carbon dioxide 20 mmol/L 21-32 Serum or plasma anion gap determination (moles/volume) 13 mmol/L 5-14 Serum or plasma urea nitrogen measurement (mass/volume ) 32 mg/dL 7-18 Serum or plasma creatinine measurement (mass/volume) 1.50 mg/dL 0.60-1.30 Serum or plasma urea nitrogen/creatinine mass ratio 21 NRG Serum or plasma creatinine measurement w ith calculation of estimated glomerular filtration rate 46 NRG Serum or plasma glucose measurement (mass/volume) 82 mg/dL 70-105 Serum or plasma calcium measurement (mass/volume) 9.8 mg/dL 8.5-10.1 Magnesium - 09/05/18 00:30 Magnesium 1.9 mg/dL 1.8-2.4 Serum or plasma troponin i.cardiac measu rement (mass/volume) - 09/05/18 00:30 Serum or plasma troponin i.cardiac measurement (mass/v olume) 0.075 ng/mL <0.028 Serum or plasma lithium measurement (mol es/volume) - 09/05/18 00:30 BNP PT 184.3 pg/mL <100.0 Serum or plasma troponin i.cardiac measu rement (mass/volume) - 09/05/18 03:17 Serum or plasma troponin i.cardiac measurement (mass/v olume) 0.111 ng/mL <0.028 Serum or plasma troponin i.cardiac measu rement (mass/volume) - 09/05/18 06:59 Serum or plasma troponin i.cardiac measurement (mass/v olume) 0.110 ng/mL <0.028 Complete blood count (CBC) with automate d white blood cell (WBC) differential - 09/15/18 19:11 Blood leukocytes automated count (number/volume) 5.6 10*3/uL 4.3-11.0 Blood erythrocytes automated count (number/volume) 4.29 10*6/uL 4.35-5.85 Venous blood hemoglobin measurement (mass/volume) 11.1 g/dL 13.3-17.7 Blood hematocrit (volume fraction) 35 % 40-54 Automated erythrocyte mean corpuscular volume 80 [ foz_us] 80-99 Automated erythrocyte mean corpuscular h emoglobin (mass per erythrocyte) 26 pg 25-34 Automated erythrocyte mean corpuscular h emoglobin concentration measurement (mass/volume) 32 g/dL 32-36 Automated erythrocyte distribution width ratio 17. 5 % 10.0- 14.5 Automated blood platelet count (count/volume) 228 10*3/uL 130-400 Automated blood platelet mean volume measurement 10.2 [foz_us] 7.4-10.4 Automated blood neutrophils/100 leukocytes 62 % 42-75 Automated blood lymphocytes/100 leukocytes 24 % 12-44 Blood monocytes/100 leukocytes 12 % 0-12 Automated blood eosinophils/100 leukocytes 1 % 0-10 Automated blood basophils/100 leukocytes 1 % 0-10 Blood neutrophils automated count (number/volume) 3.4 10*3 1.8-7.8 Blood lymphocytes automated count (number/volume) 1.4 10*3 1.0-4.0 Blood monocytes automated count (number/volume) 0. 7 10*3 0.0-1.0 Automated eosinophil count 0.1 10*3/uL 0 .0-0.3 Automated blood basophil count (count/volume) 0.1 10*3/uL 0.0-0.1 PT panel in platelet poor plasma by coag ulation assay - 09/15/18 19:11 Prothrombin time (PT) in platelet poor plasma by coagu lation assay 14.2 s 12.2-14.7 INR in platelet poor plasma or blood by coagulation as say 1.1 0.8-1.4 Activated partial thromboplastin time (a PTT) in platelet poor plasma bycoagulation assay - 09/15/18 19:11 Activated partial thromboplastin time (a PTT) in platelet poor plasma bycoagulation assay 29 s 24-35 Comprehensive metabolic panel - 09/15/18 19:11 Serum or plasma sodium measurement (moles/volume) 136 mmol/L 135-145 Serum or plasma potassium measurement (moles/volume) 4.0 mmol/L 3.6-5.0 Serum or plasma chloride measurement (moles/volume) 105 mmol/L 98-107 Carbon dioxide 23 mmol/L 21-32 Serum or plasma anion gap determination (moles/volume) 8 mmol/L 5-14 Serum or plasma urea nitrogen measurement (mass/volume ) 18 mg/dL 7-18 Serum or plasma creatinine measurement (mass/volume) 1.25 mg/dL 0.60-1.30 Serum or plasma urea nitrogen/creatinine mass ratio 14 NRG Serum or plasma creatinine measurement w ith calculation of estimated glomerular filtration rate 56 NRG Serum or plasma glucose measurement (mass/volume) 73 mg/dL 70-105 Serum or plasma calcium measurement (mass/volume) 9.5 mg/dL 8.5-10.1 Serum or plasma total bilirubin measurement (mass/volu me) 0.6 mg/dL 0.1-1.0 Serum or plasma alkaline phosphatase lindsay surement (enzymatic activity/volume) 69 U/L 40-136 Serum or plasma aspartate aminotransfera se measurement (enzymatic activity/volume) 20 U/L 5-34 Serum or plasma alanine aminotransferase measurement (enzymatic activity/volume) 19 U/L 0-55 Serum or plasma protein measurement (mass/volume) 6.7 g/dL 6.4-8.2 Serum or plasma albumin measurement (mass/volume) 4.0 g/dL 3.2-4.5 CALCIUM CORRECTED 9.5 mg/dL 8.5-10.1 Magnesium - 09/15/18 19:11 Magnesium 1.7 mg/dL 1.8-2.4 Serum or plasma troponin i.cardiac measu rement (mass/volume) - 09/15/18 19:11 Serum or plasma troponin i.cardiac measurement (mass/v olume) 0.055 ng/mL <0.028 Myoglobin, serum - 09/15/18 19:11 Myoglobin, serum 67.3 ng/mL 10.0-92.0 Serum or plasma troponin i.cardiac measu rement (mass/volume) - 09/15/18 21:03 Serum or plasma troponin i.cardiac measurement (mass/v olume) 0.067 ng/mL <0.028 Lipid 1996 panel - 09/16/18 05:32 Serum or plasma triglyceride measurement (mass/volume) 36 mg/dL <150 Serum or plasma cholesterol measurement (mass/volume) 155 mg/dL < 200 Serum or plasma cholesterol in HDL measurement (mass/v olume) 60 mg/dL 40-60 Cholesterol in LDL [mass/volume] in serum or plasma by direct assay 90 mg/dL 1-129 Serum or plasma cholesterol in VLDL measurement (mass/ volume) 7 mg/dL 5-40 Serum or plasma troponin i.cardiac measu rement (mass/volume) - 09/16/18 05:32 Serum or plasma troponin i.cardiac measurement (mass/v olume) 0.064 ng/mL <0.028 Methicillin resistant Staphylococcus aur eus (MRSA) screening culture - 10/11/18 14:15 Methicillin resistant Staphylococcus aureus (MRSA) scr eening culture NEG NRG Methicillin resistant Staphylococcus aur eus (MRSA) screening culture - 10/19/18 09:50 Methicillin resistant Staphylococcus aureus (MRSA) scr eening culture NEG NRG Automated blood complete blood count (he mogram) panel - 11/09/18 08:51 Blood leukocytes automated count (number/volume) 6.3 10*3/uL 4.3-11.0 Blood erythrocytes automated count (number/volume) 4.77 10*6/uL 4.35-5.85 Venous blood hemoglobin measurement (mass/volume) 12.3 g/dL 13.3-17.7 Blood hematocrit (volume fraction) 38 % 40-54 Automated erythrocyte mean corpuscular volume 80 [ foz_us] 80-99 Automated erythrocyte mean corpuscular h emoglobin (mass per erythrocyte) 26 pg 25-34 Automated erythrocyte mean corpuscular h emoglobin concentration measurement (mass/volume) 32 g/dL 32-36 Automated erythrocyte distribution width ratio 17. 3 % 10.0- 14.5 Automated blood platelet count (count/volume) 238 10*3/uL 130-400 Automated blood platelet mean volume measurement 10.0 [foz_us] 7.4-10.4 PT panel in platelet poor plasma by coag ulation assay - 11/09/18 08:51 Prothrombin time (PT) in platelet poor plasma by coagu lation assay 14.2 s 12.2-14.7 INR in platelet poor plasma or blood by coagulation as say 1.1 0.8-1.4 Activated partial thromboplastin time (a PTT) in platelet poor plasma bycoagulation assay - 11/09/18 08:51 Activated partial thromboplastin time (a PTT) in platelet poor plasma bycoagulation assay 29 s 24-35 Comprehensive metabolic panel - 11/09/18 08:51 Serum or plasma sodium measurement (moles/volume) 136 mmol/L 135-145 Serum or plasma potassium measurement (moles/volume) 4.4 mmol/L 3.6-5.0 Serum or plasma chloride measurement (moles/volume) 104 mmol/L 98-107 Carbon dioxide 23 mmol/L 21-32 Serum or plasma anion gap determination (moles/volume) 9 mmol/L 5-14 Serum or plasma urea nitrogen measurement (mass/volume ) 18 mg/dL 7-18 Serum or plasma creatinine measurement (mass/volume) 1.28 mg/dL 0.60-1.30 Serum or plasma urea nitrogen/creatinine mass ratio 14 NRG Serum or plasma creatinine measurement w ith calculation of estimated glomerular filtration rate 55 NRG Serum or plasma glucose measurement (mass/volume) 85 mg/dL 70-105 Serum or plasma calcium measurement (mass/volume) 9.6 mg/dL 8.5-10.1 Serum or plasma total bilirubin measurement (mass/volu me) 0.8 mg/dL 0.1-1.0 Serum or plasma alkaline phosphatase lindsay surement (enzymatic activity/volume) 96 U/L 40-136 Serum or plasma aspartate aminotransfera se measurement (enzymatic activity/volume) 17 U/L 5-34 Serum or plasma alanine aminotransferase measurement (enzymatic activity/volume) 8 U/L 0-55 Serum or plasma protein measurement (mass/volume) 7.4 g/dL 6.4-8.2 Serum or plasma albumin measurement (mass/volume) 4.3 g/dL 3.2-4.5 CALCIUM CORRECTED 9.4 mg/dL 8.5-10.1 Methicillin resistant Staphylococcus aur eus (MRSA) screening culture - 11/09/18 08:51 Methicillin resistant Staphylococcus aureus (MRSA) scr eening culture NEG NRG Automated blood complete blood count (he mogram) panel - 11/10/18 03:16 Blood leukocytes automated count (number/volume) 8.3 10*3/uL 4.3-11.0 Blood erythrocytes automated count (number/volume) 4.33 10*6/uL 4.35-5.85 Venous blood hemoglobin measurement (mass/volume) 11.2 g/dL 13.3-17.7 Blood hematocrit (volume fraction) 35 % 40-54 Automated erythrocyte mean corpuscular volume 81 [ foz_us] 80-99 Automated erythrocyte mean corpuscular h emoglobin (mass per erythrocyte) 26 pg 25-34 Automated erythrocyte mean corpuscular h emoglobin concentration measurement (mass/volume) 32 g/dL 32-36 Automated erythrocyte distribution width ratio 17. 1 % 10.0- 14.5 Automated blood platelet count (count/volume) 200 10*3/uL 130-400 Automated blood platelet mean volume measurement 11.0 [foz_us] 7.4-10.4 Comprehensive metabolic panel - 11/10/18 03:16 Serum or plasma sodium measurement (moles/volume) 133 mmol/L 135-145 Serum or plasma potassium measurement (moles/volume) 4.7 mmol/L 3.6-5.0 Serum or plasma chloride measurement (moles/volume) 104 mmol/L 98-107 Carbon dioxide 20 mmol/L 21-32 Serum or plasma anion gap determination (moles/volume) 9 mmol/L 5-14 Serum or plasma urea nitrogen measurement (mass/volume ) 16 mg/dL 7-18 Serum or plasma creatinine measurement (mass/volume) 1.14 mg/dL 0.60-1.30 Serum or plasma urea nitrogen/creatinine mass ratio 14 NRG Serum or plasma creatinine measurement w ith calculation of estimated glomerular filtration rate > NRG Serum or plasma glucose measurement (mass/volume) 97 mg/dL 70-105 Serum or plasma calcium measurement (mass/volume) 9.4 mg/dL 8.5-10.1 Serum or plasma total bilirubin measurement (mass/volu me) 0.7 mg/dL 0.1-1.0 Serum or plasma alkaline phosphatase lindsay surement (enzymatic activity/volume) 75 U/L 40-136 Serum or plasma aspartate aminotransfera se measurement (enzymatic activity/volume) 15 U/L 5-34 Serum or plasma alanine aminotransferase measurement (enzymatic activity/volume) 7 U/L 0-55 Serum or plasma protein measurement (mass/volume) 6.5 g/dL 6.4-8.2 Serum or plasma albumin measurement (mass/volume) 3.9 g/dL 3.2-4.5 CALCIUM CORRECTED 9.5 mg/dL 8.5-10.1 Complete blood count (CBC) with automate d white blood cell (WBC) differential - 11/10/18 18:50 Blood leukocytes automated count (number/volume) 7.1 10*3/uL 4.3-11.0 Blood erythrocytes automated count (number/volume) 4.34 10*6/uL 4.35-5.85 Venous blood hemoglobin measurement (mass/volume) 11.5 g/dL 13.3-17.7 Blood hematocrit (volume fraction) 35 % 40-54 Automated erythrocyte mean corpuscular volume 81 [ foz_us] 80-99 Automated erythrocyte mean corpuscular h emoglobin (mass per erythrocyte) 26 pg 25-34 Automated erythrocyte mean corpuscular h emoglobin concentration measurement (mass/volume) 33 g/dL 32-36 Automated erythrocyte distribution width ratio 17. 3 % 10.0- 14.5 Automated blood platelet count (count/volume) 190 10*3/uL 130-400 Automated blood platelet mean volume measurement 10.1 [foz_us] 7.4-10.4 Automated blood neutrophils/100 leukocytes 61 % 42-75 Automated blood lymphocytes/100 leukocytes 23 % 12-44 Blood monocytes/100 leukocytes 8 % 0-12 Automated blood eosinophils/100 leukocytes 8 % 0-10 Automated blood basophils/100 leukocytes 1 % 0-10 Blood neutrophils automated count (number/volume) 4.3 10*3 1.8-7.8 Blood lymphocytes automated count (number/volume) 1.6 10*3 1.0-4.0 Blood monocytes automated count (number/volume) 0. 6 10*3 0.0-1.0 Automated eosinophil count 0.6 10*3/uL 0 .0-0.3 Automated blood basophil count (count/volume) 0.1 10*3/uL 0.0-0.1 PT panel in platelet poor plasma by coag ulation assay - 11/10/18 18:50 Prothrombin time (PT) in platelet poor plasma by coagu lation assay 14.7 s 12.2-14.7 INR in platelet poor plasma or blood by coagulation as say 1.1 0.8-1.4 Activated partial thromboplastin time (a PTT) in platelet poor plasma bycoagulation assay - 11/10/18 18:50 Activated partial thromboplastin time (a PTT) in platelet poor plasma bycoagulation assay 31 s 24-35 Comprehensive metabolic panel - 11/10/18 18:50 Serum or plasma sodium measurement (moles/volume) 133 mmol/L 135-145 Serum or plasma potassium measurement (moles/volume) 3.6 mmol/L 3.6-5.0 Serum or plasma chloride measurement (moles/volume) 102 mmol/L 98-107 Carbon dioxide 21 mmol/L 21-32 Serum or plasma anion gap determination (moles/volume) 10 mmol/L 5-14 Serum or plasma urea nitrogen measurement (mass/volume ) 15 mg/dL 7-18 Serum or plasma creatinine measurement (mass/volume) 1.34 mg/dL 0.60-1.30 Serum or plasma urea nitrogen/creatinine mass ratio 11 NRG Serum or plasma creatinine measurement w ith calculation of estimated glomerular filtration rate 52 NRG Serum or plasma glucose measurement (mass/volume) 148 mg/dL 70-105 Serum or plasma calcium measurement (mass/volume) 9.5 mg/dL 8.5-10.1 Serum or plasma total bilirubin measurement (mass/volu me) 0.8 mg/dL 0.1-1.0 Serum or plasma alkaline phosphatase lindsay surement (enzymatic activity/volume) 76 U/L 40-136 Serum or plasma aspartate aminotransfera se measurement (enzymatic activity/volume) 15 U/L 5-34 Serum or plasma alanine aminotransferase measurement (enzymatic activity/volume) 8 U/L 0-55 Serum or plasma protein measurement (mass/volume) 6.9 g/dL 6.4-8.2 Serum or plasma albumin measurement (mass/volume) 4.1 g/dL 3.2-4.5 CALCIUM CORRECTED 9.4 mg/dL 8.5-10.1 Magnesium - 11/10/18 18:50 Magnesium 1.9 mg/dL 1.6-2.4 Serum or plasma troponin i.cardiac measu rement (mass/volume) - 11/10/18 18:50 Serum or plasma troponin i.cardiac measurement (mass/v olume) 0.303 ng/mL <0.028 Serum or plasma lithium measurement (mol es/volume) - 11/10/18 18:50 BNP PT 309.8 pg/mL <100.0 Myoglobin, serum - 11/10/18 18:50 Myoglobin, serum 52.0 ng/mL 10.0-92.0 Complete urinalysis with reflex to cultu re - 11/10/18 19:17 Urine color determination YELLOW NRG Urine clarity determination CLEAR NR G Urine pH measurement by test strip 5 5-9 Specific gravity of urine by test strip 1.015 1.016-1.022 Urine protein assay by test strip, semi-quantitative 2+ NEGATIVE Urine glucose detection by automated test strip NE GATIVE NEGATIVE Erythrocytes detection in urine sediment by light micr oscopy 4+ NEGATIVE Urine ketones detection by automated test strip 1+ NEGATIVE Urine nitrite detection by test strip POSITIVE NEGATIVE Urine total bilirubin detection by test strip NEGA TIVE NEGATIVE Urine urobilinogen measurement by automated test strip (mass/volume) NORMAL NORMAL Urine leukocyte esterase detection by dipstick 3+ NEGATIVE Automated urine sediment erythrocyte cou nt by microscopy (number/high power field) [HPF] NRG Automated urine sediment leukocyte count by microscopy (number/high power field) [HPF] NRG Bacteria detection in urine sediment by light microsco py FEW NRG Crystals detection in urine sediment by light microsco py NONE NRG Casts detection in urine sediment by light microscopy NONE NRG Mucus detection in urine sediment by light microscopy NEGATIVE NRG Complete urinalysis with reflex to culture YES NRG Bacterial urine culture - 11/10/18 19:17 Bacterial urine culture [id number] NRG COLONY COUNT >100,000/ML NRG FTX;REPORTABLE SUSCEPTIBILITY REPORTED 11-13-18, 12 22. NRG Dirithromycin susceptibility test by dis k diffusion - 11/10/18 19:17 Gentamicin susceptibility test by minimum inhibitory c oncentration <= NRG Levofloxacin susceptibility test by minimum inhibitory concentration <= NRG Tobramycin susceptibility test by minimum inhibitory c oncentration <= NRG Piperacillin/tazobactam susceptibility t est by minimum inhibitory concentration = NRG Ciprofloxacin susceptibility test by minimum inhibitor y concentration <= NRG Meropenem susceptibility test by minimum inhibitory co ncentration <= NRG Aztreonam susceptibility test by minimum inhibitory co ncentration 8 NRG Cefepime susceptibility test by minimum inhibitory con centration 4 NRG Imipenem susceptibility test by minimum inhibitory con centration 1 NRG Ceftazidime susceptibility test by minimum inhibitory concentration <= NRG Blood lactic acid measurement (moles/vol ume) - 01/31/19 09:00 Blood lactic acid measurement (moles/volume) 1.27 mmol/L 0.50-2.00 Complete blood count (CBC) with automate d white blood cell (WBC) differential - 01/31/19 09:00 Blood leukocytes automated count (number/volume) 4.8 10*3/uL 4.3-11.0 Blood erythrocytes automated count (number/volume) 4.48 10*6/uL 4.35-5.85 Venous blood hemoglobin measurement (mass/volume) 11.6 g/dL 13.3-17.7 Blood hematocrit (volume fraction) 37 % 40-54 Automated erythrocyte mean corpuscular volume 82 [ foz_us] 80-99 Automated erythrocyte mean corpuscular h emoglobin (mass per erythrocyte) 26 pg 25-34 Automated erythrocyte mean corpuscular h emoglobin concentration measurement (mass/volume) 32 g/dL 32-36 Automated erythrocyte distribution width ratio 16. 2 % 10.0- 14.5 Automated blood platelet count (count/volume) 178 10*3/uL 130-400 Automated blood platelet mean volume measurement 11.1 [foz_us] 7.4-10.4 Automated blood neutrophils/100 leukocytes 44 % 42-75 Automated blood lymphocytes/100 leukocytes 33 % 12-44 Blood monocytes/100 leukocytes 16 % 0-12 Automated blood eosinophils/100 leukocytes 6 % 0-10 Automated blood basophils/100 leukocytes 1 % 0-10 Blood neutrophils automated count (number/volume) 2.1 10*3 1.8-7.8 Blood lymphocytes automated count (number/volume) 1.6 10*3 1.0-4.0 Blood monocytes automated count (number/volume) 0. 8 10*3 0.0-1.0 Automated eosinophil count 0.3 10*3/uL 0 .0-0.3 Automated blood basophil count (count/volume) 0.0 10*3/uL 0.0-0.1 PT panel in platelet poor plasma by coag ulation assay - 01/31/19 09:00 Prothrombin time (PT) in platelet poor plasma by coagu lation assay 13.9 s 12.2-14.7 INR in platelet poor plasma or blood by coagulation as say 1.0 0.8-1.4 Activated partial thromboplastin time (a PTT) in platelet poor plasma bycoagulation assay - 01/31/19 09:00 Activated partial thromboplastin time (a PTT) in platelet poor plasma bycoagulation assay 24 s 24-35 Comprehensive metabolic panel - 01/31/19 09:00 Serum or plasma sodium measurement (moles/volume) 137 mmol/L 135-145 Serum or plasma potassium measurement (moles/volume) 5.2 mmol/L 3.6-5.0 Serum or plasma chloride measurement (moles/volume) 107 mmol/L 98-107 Carbon dioxide 22 mmol/L 21-32 Serum or plasma anion gap determination (moles/volume) 8 mmol/L 5-14 Serum or plasma urea nitrogen measurement (mass/volume ) 21 mg/dL 7-18 Serum or plasma creatinine measurement (mass/volume) 1.16 mg/dL 0.60-1.30 Serum or plasma urea nitrogen/creatinine mass ratio 18 NRG Serum or plasma creatinine measurement w ith calculation of estimated glomerular filtration rate > NRG Serum or plasma glucose measurement (mass/volume) 78 mg/dL 70-105 Serum or plasma calcium measurement (mass/volume) 9.3 mg/dL 8.5-10.1 Serum or plasma total bilirubin measurement (mass/volu me) 0.4 mg/dL 0.1-1.0 Serum or plasma alkaline phosphatase lindsay surement (enzymatic activity/volume) 83 U/L 40-136 Serum or plasma aspartate aminotransfera se measurement (enzymatic activity/volume) 27 U/L 5-34 Serum or plasma alanine aminotransferase measurement (enzymatic activity/volume) 9 U/L 0-55 Serum or plasma protein measurement (mass/volume) 6.9 g/dL 6.4-8.2 Serum or plasma albumin measurement (mass/volume) 4.0 g/dL 3.2-4.5 CALCIUM CORRECTED 9.3 mg/dL 8.5-10.1 Bacterial blood culture - 01/31/19 09:00 QUANTITY OF GROWTH . NRG Bacterial blood culture SEE COMMEN NRG Complete urinalysis with reflex to cultu re - 01/31/19 09:05 Urine color determination YELLOW NRG Urine clarity determination SL CLOUDY N RG Urine pH measurement by test strip 6.0 5-9 Specific gravity of urine by test strip 1.020 1.016-1.022 Urine protein assay by test strip, semi-quantitative NEGATIVE NEGATIVE Urine glucose detection by automated test strip NE GATIVE NEGATIVE Erythrocytes detection in urine sediment by light micr oscopy 2+ NEGATIVE Urine ketones detection by automated test strip NE GATIVE NEGATIVE Urine nitrite detection by test strip NEGATIVE NEGATIVE Urine total bilirubin detection by test strip NEGA TIVE NEGATIVE Urine urobilinogen measurement by automated test strip (mass/volume) 0.2 mg/dL < = 1.0 Urine leukocyte esterase detection by dipstick 2+ NEGATIVE Automated urine sediment erythrocyte cou nt by microscopy (number/high power field) [HPF] NRG Automated urine sediment leukocyte count by microscopy (number/high power field) > [HPF] NRG Bacteria detection in urine sediment by light microsco py FEW NRG Squamous epithelial cells detection in u rine sediment by light microscopy NONE NRG Crystals detection in urine sediment by light microsco py NONE NRG Casts detection in urine sediment by light microscopy NONE NRG Mucus detection in urine sediment by light microscopy NEGATIVE NRG Complete urinalysis with reflex to culture CULTURE PENDING NRG Bacterial urine culture - 01/31/19 09:05 Bacterial urine culture [id number] NRG COLONY COUNT >100,000/ML NRG FTX;REPORTABLE SUSCEPTIBILITY REPORTED 02/03/19 9:3 5 NRG Dirithromycin susceptibility test by dis k diffusion - 01/31/19 09:05 Gentamicin susceptibility test by minimum inhibitory c oncentration <= NRG Trimethoprim/sulfamethoxazole susceptibi lity test by minimum inhibitoryconcentration > NRG Levofloxacin susceptibility test by minimum inhibitory concentration 4 NRG Ampicillin susceptibility test by minimum inhibitory c oncentration > NRG Cefazolin susceptibility test by minimum inhibitory co ncentration > NRG Ceftriaxone susceptibility test by minimum inhibitory concentration <= NRG Piperacillin/tazobactam susceptibility t est by minimum inhibitory concentration S NRG Ciprofloxacin susceptibility test by minimum inhibitor y concentration > NRG Meropenem susceptibility test by minimum inhibitory co ncentration <= NRG Nitrofurantoin susceptibility test by mi nimum inhibitory concentration > NRG Amoxicillin and clavulanate potassium susc HUNTER > NRG Dirithromycin susceptibility test by dis k diffusion - 01/31/19 09:05 Gentamicin susceptibility test by minimum inhibitory c oncentration <= NRG Trimethoprim/sulfamethoxazole susceptibi lity test by minimum inhibitoryconcentration S NRG Levofloxacin susceptibility test by minimum inhibitory concentration <= NRG Ampicillin susceptibility test by minimum inhibitory c oncentration > NRG Cefazolin susceptibility test by minimum inhibitory co ncentration > NRG Ceftriaxone susceptibility test by minimum inhibitory concentration 32 NRG Piperacillin/tazobactam susceptibility t est by minimum inhibitory concentration <= NRG Ciprofloxacin susceptibility test by minimum inhibitor y concentration <= NRG Meropenem susceptibility test by minimum inhibitory co ncentration <= NRG Nitrofurantoin susceptibility test by mi nimum inhibitory concentration R NRG Amoxicillin and clavulanate potassium susc HUNTER = NRG Bacterial blood culture - 01/31/19 10:14 Bacterial blood culture NG NRG Encounters ACCT No. Visit Date/Time Discharge Status Pt. Type Provider Facility Loc./Unit Complaint [id number] 01/31/2019 08:50:00 12:53:00 DIS Outpatient MARKIE FREIRE MD Via [facility] ER DIZZINESS [id number] 11/10/2018 18:29:00 22:40:00 DIS Emergency PHANI VILLA APRN Via [facility] ER WEAKNESS [id number] 11/09/2018 08:04:00 15:00:00 DIS Outpatient Gabrielle HINOJOSA MD Via [facility] CATH ISCHEMIC CARDIOMYOPATHY [id number] 10/19/2018 09:22:00 15:32:00 DIS Outpatient PATSY MCADAMS DO Via [facility] SDC RIGHT INGUINAL HERNIA [id number] 10/11/2018 13:40:00 16:00:00 DIS Outpatient MCADAMS PATSY EPSTEIN Via [facility] PREOP RIGHT INGUINAL HERNIA R EAPIR, OPEN [id number] 09/15/2018 21:42:00 14:05:00 DIS Inpatient WARD EPSTEIN DEBBIE V ia [facility] 4TH CHEST PAIN [id number] 09/13/2018 14:07:00 23:59:59 CLS Preadmit Gabrielle HINOJOSA MD Via [facility] CARD PACEMAKER,CHRONIC SYSTO LIC [id number] 09/05/2018 00:23:00 17:05:00 DIS Emergency MARKIE FREIRE MD Via [facility] ER FALL [id number] 08/31/2018 03:25:00 08:31:00 DIS Emergency ROSEMARY CAMPOS, PIEDAD Waller Via [facility] ER CP [id number] 08/28/2018 12:32:00 23:59:59 CLS Preadmit LAURIE HINOJOSA MD Via [facility] RAD HYPERTENSION,CHRONIC KI DNEY DISEASE [id number] 07/21/2018 15:50:00 20:32:00 DIS Emergency ROSEMARY CAMPOS, PIEDAD Waller Via [facility] ER CP [id number] 07/18/2018 21:19:00 10:22:00 DIS Inpatient MARLON CAMPOS FACC, LUIS CARLOS SHAIKH CCD S Via [facility] ICU NON STEMI [id number] 04/13/2018 10:00:00 23:59:59 CLS Preadmit Gabrielle HINOJOSA MD Via [facility] CATH SEVERE ISCHEMIC CARDIOM YOPATHY [id number] 03/12/2018 12:41:00 019 17:25:00 DIS Emergency PHANI VILLA APRN Via [facility] ER CP [id number] 03/08/2018 11:11:00 019 14:24:00 DIS Emergency ROSEMARY CAMPOS, PIEDAD Waller Via [facility] ER CATHETER ISSUES [id number] 01/03/2018 14:53:00 018 23:59:59 CLS Preadmit MICAELA CAMPOS, LAURIE Gerard Via [facility] RAD CHRONIC KIDNEY DISEASE STAGE 2 [id number] 12/05/2017 13:24:00 018 23:59:59 CLS Outpatient MICAELA CAMPOS, Gabrielle KAUR Via [facility] CARD CAD,CKD,DVT,CARDIOMYOPA THY [id number] 09/24/2017 19:30:00 018 15:12:00 DIS Inpatient JIM PAGE DO E Via [facility] 4TH WEAKNESS,CONSTI PATION,FECAL IMPACTION [id number] 09/16/2017 13:50:00 018 16:35:00 DIS Outpatient ROBE LOMBARDI MD Via [facility] CHEST PAIN [id number] 09/19/2017 10:00:00 018 23:59:59 CLS Preadmit PATSY MCADAMS DO Via [facility] INCISIONAL HERNIA [id number] 09/15/2017 05:28:00 018 23:59:59 CLS Outpatient PATSY MCADAMS DO Via [facility] PREOP LAPAROSCOPIC INCISIONAL HERNIA REPAIR [id number] 08/15/2017 15:20:00 018 18:34:00 DIS Emergency PHANI VILLA APRN Via [facility] ER DIZZINESS [id number] 07/26/2017 19:30:00 018 19:29:00 DIS Outpatient DEBBIE HOPPER DO Via [facility] SDC NEAR SYNCOPE, CHEST ED N, ANEMIA [id number] 05/18/2017 06:25:00 018 13:55:00 DIS Inpatient JIM PAGE DO Via [facility] ICU CHEST PAIN,COMP LICATED UTI W/ INDWELLING HURD [id number] 02/18/2017 06:51:00 017 10:56:00 DIS Emergency ERWIN DALLAS MD Via [facility] ER LIGHTHEADED [id number] 01/02/2017 10:40:00 017 15:30:00 DIS Inpatient BECKY CAMPOS, DORYS Alba Via [facility] 4TH LLL PNEUMONIA [id number] 12/29/2016 23:55:00 017 17:20:00 DIS Inpatient ELAYNE SINGLETARY MD Via [facility] 4TH PNEUMONIA LLL,SEPSIS [id number] 12/22/2016 13:31:00 017 14:03:00 DIS Inpatient ARNEL REZA MD Via [facility] 4TH LIGHT HEADED,HEADACHE [id number] 09/16/2016 04:01:00 017 04:54:00 DIS Emergency MARKIE FREIRE MD Via [facility] ER CAN'T URINATE [id number] 09/08/2016 19:40:00 017 14:50:00 DIS Inpatient WARD EPSTEINDEBBIE V ia [facility] 4TH SOB,CHEST TIGHTNESS R/O ACS DEHYDRATION [id number] 07/08/2016 11:26:00 017 13:40:00 DIS Inpatient ARNEL REZA MD Via [facility] CSD CHEST PAIN; BRODYCARDIA WITH BIGEMINY [id number] 03/12/2016 15:47:00 017 18:02:00 DIS Emergency ERWIN DALLAS MD Via [facility] ER CP/SOA [id number] 10/24/2015 02:02:00 016 02:49:00 DIS Emergency MARKIE FREIRE MD Via [facility] ER CATH STOPPED UP [id number] 07/27/2015 15:24:00 016 19:05:00 DIS Emergency PIEDAD RILEY MD Via [facility] ER CATHETER BLOCKE D [id number] 06/01/2015 20:14:00 016 11:05:00 DIS Outpatient DEBBIE HOPPER DO Via [facility] CATH CHEST PAIN;LEG EDEMA;DY SPNEA;HX OF DVT P E [id number] 12/18/2014 20:04:00 015 21:34:00 DIS Emergency PIEDAD RILEY MD Via [facility] ER UNABLE TO URINA TE [id number] 09/18/2014 04:05:00 015 14:55:00 DIS Inpatient LIBIA CAMPOS, ARNEL Jenkins Via [facility] CSD SYNCOPAL EPISODE;CHRONI C PULMONARY EMBOLISM [id number] 04/10/2014 11:56:00 015 23:59:59 CLS Outpatient ROSE MARIE CAMPOS, GABRIELLE Shaffer Via [facility] CARD LBB,DVT [id number] 03/15/2014 14:02:00 015 15:19:00 DIS Inpatient LIBIA CAMPOS, ARNEL Jenkins Via [facility] CSD BILATERAL PULMONARY EMB OLIS [id number] 02/23/2014 12:22:00 014 13:19:00 DIS Emergency PHANI VILLA CORE SUCKER Via [facility] ER CATHETER CAME OUT [id number] 12/26/2013 22:05:00 014 23:56:00 DIS Emergency SHAYY REYES DO Vi a [facility] ER CATH FELL OUT [id number] 09/11/2013 08:12:00 014 10:38:00 DIS Emergency PIEDAD RILEY MD Via [facility] ER CATHETER PLUGGE D [id number] 06/15/2013 15:52:00 014 16:45:00 DIS Emergency [id number] 03/03/2013 08:10:00 014 11:02:00 DIS Inpatient SOLOMON CAMPOS, JAYJAY Medeiros [facility] SURGICAL [id number] 02/27/2013 21:03:00 013 22:30:00 DIS Emergency [id number] 02/08/2013 15:26:00 013 17:24:00 DIS Inpatient [id number] 05/05/2014 20:44:00 Document Registration
== END 2019-01-31 12:53 | disposition home or self-care (01) ==
LOC: EDUNIT# 08:47 → ER 08:50
DX: N39.0 Urinary tract infection, site not specified (principal); R42 Dizziness and giddiness; I48.91 Unspecified atrial fibrillation; I25.10 Atherosclerotic heart disease of native coronary artery without angina pectoris; K21.9 Gastro-esophageal reflux disease without esophagitis; Z86.718 Personal history of other venous thrombosis and embolism; Z86.711 Personal history of pulmonary embolism; Z95.1 Presence of aortocoronary bypass graft; Z95.0 Presence of cardiac pacemaker; Z88.8 Allergy status to other drugs, medicaments and biological substances; Z79.82 Long term (current) use of aspirin; Z79.02 Long term (current) use of antithrombotics/antiplatelets; Z80.0 Family history of malignant neoplasm of digestive organs; Z82.49 Family history of ischemic heart disease and other diseases of the circulatory system; Z80.42 Family history of malignant neoplasm of prostate
CPT/HCPCS: 36415; 51702; 70450; 70496; 70498; 71045; 80053; 81000; 83605; 85025; 85610; 85730; 87040; 87077; 87088; 87186; 96361; 96374

== ENCOUNTER 2019-04-24 12:41 | Emergency (ER) | payer MEDICARE ==
[~2019-04-24] VITALS: Ht 180 cm; Wt 96.0 kg
[~2019-04-24 12:41] MED LIST changes: +CEPH500T PO; -MECL-106 PO; +MECL-149 PO; -OMEP-280 PO; +OMEP20CA18 PO
--- NOTE | 2019-04-24 13:07 | NUR ---
pt self ambulatory to ED room, vs assessed and stable, states he "feels full" while talking about his bladder, states he tried to self cath this morning but was unable too, states he has had indwelling cath since 2013, does not see a urologist for this, [facility] follows pt for catheter care
--- NOTE | 2019-04-24 13:48 | NUR ---
bladder scan completed at this time, 117 mL of urine shown at this time, pt states he feels full and needs to urinate
--- NOTE | 2019-04-24 13:59 | ED GU-Male ---
General Chief Complaint: Catheter/Drain/Tube Problems Stated Complaint: CATHETER ISSUES Nursing Triage Note: STATES HIS URINARY CATH GOT CAUGHT ON SOMETHING LAST NIGHT AND IT BECAME PAINFUL SO HE TOOK IT OUT AND WAS UNABLE TO GET ANOTHER ONE IN. Source: patient Exam Limitations: no limitations History of Present Illness Date Seen by Provider: Apr 24, 2019 Time Seen by Provider: 13:48 Initial Comments Patient here with report of catheter out. He has chronic Sandhu catheter. He got caught on something last night and cold partially out. He went ahead and release the balloon and removed it. He tried to get another catheter and that was unable to. He presents for urinary retention. Denies nausea, vomiting, diarrhea, fever or other concerns. He does think he has a urinary tract infection. Timing/Duration: yesterday Severity/Quality: mild Location: urethral Radiation: none Activities at Onset: none Associated Symptoms: dysuria; No fever/chills, No nausea/vomiting Allergies and Home Medications Allergies Coded Allergies: metoprolol (Unverified Allergy, Mild, SKIN SENSITIVITY, 10/11/18) "sunburn" rivaroxaban (Unverified Allergy, Mild, N/V, 10/11/18) Home Medications Aspirin 81 Mg Tablet.dr, 81 MG PO DAILY, (Reported) Cefdinir 300 Mg Capsule, 300 MG PO BID Prescribed by: PHANI VILLA on 11/10/182122 Cephalexin 500 Mg Capsule, 500 MG PO TID Prescribed by: Gabrielle HINOJOSA on 11/10/18 1307 Cephalexin 500 Mg Tablet, 500 MG PO BID Prescribed by: MARKIE FREIRE on 01/31/19 1208 Clopidogrel Bisulfate 75 Mg Tablet, 75 MG PO DAILY, (Reported) Levofloxacin 500 Mg Tablet, 500 MG PO every other day Prescribed by: PHANI VILLA on 11/10/182122 Multivitamin 1 Each Tablet, 1 EACH PO DAILY, (Reported) [place] 3 Polyunsat Fatty Acids 1,000 Mg Cap, 1,000 MG PO DAILY, (Reported) Patient Home Medication List Home Medication List Reviewed: Yes Review of Systems Review of Systems Constitutional: see HPI; No chills, No fever Respiratory: no symptoms reported Cardiovascular: no symptoms reported Genitourinary: see HPI Musculoskeletal: no symptoms reported Past Bgzkqwy-Diuqnq-Zarkvt Hx Past Med/Social Hx: Reviewed Nursing Past Med/Soc Hx Patient Social History Alcohol Use: Occasionally Uses Alcohol Beverage of Choice: Beer Recreational Drug Use: No Drug of Choice: distant past history of marijuana use Smoking Status: Never a Smoker 2nd Hand Smoke Exposure: Yes (Father was a heavy smoker in his youth) Recent Foreign Travel: No Contact w/Someone Who Travel: No Recent Infectious Disease Expo: No Recent Hopitalizations: No Immunizations Up To Date Tetanus Booster (TDap): Unknown PED Vaccines UTD: Yes Date of Pneumonia Vaccine: Sep 16, 2017 Date of Influenza Vaccine: Dec 05, 2017 Seasonal Allergies Seasonal Allergies: No Past Medical History Surgeries: Yes (CATARACT, INCISIONAL HERNIA) Cardiac, CABG, Eye Surgery, Open Heart Surgery, Pacemaker Respiratory: Yes (PE 4-5 TIMES, HX PNEUMONIA 2016) Pulmonary Embolism Currently Using CPAP: No Currently Using BIPAP: No Cardiac: Yes (CABG 07/2016; PACEMAKER; BIGEMINIY; LBBB; 1ST DEGREE AV BLOCK) Atrial Fibrillation, Cardiomyopathy, Coronary Artery Disease, Deep Vein Thrombosis, Heart Murmur, Irregular Heartbeat Neurological: No Reproductive Disorders: No Sexually Transmitted Disease: No HIV/AIDS: No Genitourinary: Yes (INDWELLING CATHETER) Benign Prostatic Hyperpl, Kidney Infection, Bladder Infection, Neurogenic Bladder, UTI-Chronic Gastrointestinal: Yes (RIGHT INGUINAL HERNIA) Gastroesophageal Reflux, Chronic Constipation Musculoskeletal: Yes (right ankle broken) Fractures Endocrine: No HEENT: Yes (READING GLASSES) Cataract Loss of Vision: Denies Hearing Impairment: Denies Cancer: No Psychosocial: No Integumentary: No Blood Disorders: No Adverse Reaction/Blood Tranf: No (HAS HAD BLOOD WITH NO REACTION) Family Medical History Reviewed Nursing Family Hx Cancer (LINING OF ABD CAVITY, AT AGE 80) 03 MOTHER Chest pain (FATHER OF MS AT AGE 83) 03 FATHER Congestive heart failure 03 FATHER Family history: Arthritis 03 MOTHER, Onset:60 years & older Family history: Cardiovascular disease 03 FATHER Heart disease 03 FATHER Hypercholesterolemia 03 FATHER 03 MOTHER Myocardial infarction 03 FATHER Prostate cancer (DIAGNOSED AT 72 OR 73 PER PT) 03 FATHER Stroke 09 SISTER Visual impairment (SISTER WEARS GLASSES ) 09 SISTER Cancer, CAD Over 55 Years Old, CVA Physical Exam Vital Signs Vital Signs - First Documented 04/24/19 12:50 Temp 37.0 Pulse 63 Resp 16 B/P (MAP) 165/135 (145) Pulse Ox 100 O2 Delivery Room Air Capillary Refill : Less Than 3 Seconds Height, Weight, BMI Height: 5'11.00" Weight: 210lbs. 7.0oz. 95.133416mc; 29.00 BMI Method:Stated General Appearance: WD/WN, no apparent distress Cardiovascular: regular rate, rhythm, no murmur Respiratory: lungs clear, normal breath sounds Male: normal genitalia Back: normal inspection, no CVA tenderness, no vertebral tenderness Neurologic/Psychiatric: alert, oriented x 3 Progress/Results/Core Measures Suspected Sepsis Recent Fever Within 48 Hours: No Infection Criteria Present: None New/Unexplained Altered Menta: No Sepsis Screen: No Definite Risk SIRS Temperature: Pulse: 63 Respiratory Rate: 16 Blood Pressure 165 /135 Mean: 145 Results/Orders Lab Results Laboratory Tests Test 04/24/19 14:05 Range/Units Urine Color YELLOW Urine Clarity CLOUDY Urine pH 6.0 5-9 Urine Specific [place] >=1.030 1.016-1.022 Urine Protein 2+ H NEGATIVE Urine Glucose (UA) NEGATIVE NEGATIVE Urine Ketones NEGATIVE NEGATIVE Urine Nitrite NEGATIVE NEGATIVE Urine Bilirubin NEGATIVE NEGATIVE Urine Urobilinogen 0.2 < = 1.0 MG/DL Urine Leukocyte Esterase 2+ H NEGATIVE Urine RBC (Auto) 3+ H NEGATIVE Urine RBC 5-10 H /HPF Urine WBC TNTC H /HPF Urine Squamous Epithelial Cells RARE /HPF Urine Crystals NONE /LPF Urine Bacteria MODERATE H /HPF Urine Casts NONE /LPF Urine Mucus NEGATIVE /LPF Urine Culture Indicated YES My Orders Orders - MARKIE FREIRE MD Catheter(Urinary) Insert & Ass 03,15 (04/24/19 13:49) Ua Culture If Indicated (04/24/19 13:49) Urine Culture (04/24/19 14:05) Vital Signs/I&O 04/24/19 12:50 Temp 37.0 Pulse 63 Resp 16 B/P (MAP) 165/135 (145) Pulse Ox 100 O2 Delivery Room Air Capillary Refill : Less Than 3 Seconds Blood Pressure Mean: 145 Progress Note : Progress Note Seen and evaluated. UA ordered. Sandhu catheter ordered. Monitor patient. 1430: Results noted for UA. He does have urinary tract infection. I have reviewed previous history and he has multiple drug-resistant organisms. We will initiate outpatient Omnicef. Discharged home with return precautions. Patient verbalized understanding instructions and agreement with plan. Departure Impression Primary Impression: UTI (urinary tract infection) Qualified Codes: N30.00 - Acute cystitis without hematuria Additional Impression: Urinary retention Disposition: HOME, SELF-CARE Condition: Improved Departure-Patient Inst. Referrals: [facility] (PCP/Family) Primary Care Physician Patient Instructions: How to Care for Your Sandhu Catheter, Male, Urinary Retention (DC), Urinary Tract Infection, Adult (DC) Add. Discharge Instructions: All discharge instructions reviewed with patient and/or family. Voiced understanding. Take medications as directed. Continue previous medications as prescribed. Return for worse pain, fever, vomiting, weakness, breathing problems or other concerns as needed. Scripts Cefdinir (Cefdinir) 300 Mg Capsule 300 MG PO BID, #14 CAP 0 Refills Prov: MARKIE FREIRE MD 04/24/19 MARKIE FREIRE MD Apr 24, 2019 13:59
[2019-04-24 14:12] LABS: BILIRUBIN,URINE NEGATIVE (NEGATIVE); CLARITY,URINE CLOUDY; COLOR,URINE YELLOW; GLUCOSE, URINE (UA) NEGATIVE (NEGATIVE); KETONES,URINE NEGATIVE (NEGATIVE); LEUKOCYTE ESTERASE ,URINE 2+ (NEGATIVE); NITRITE,URINE NEGATIVE (NEGATIVE); PROTEIN,URINE 2+ (NEGATIVE)
[2019-04-24 14:24] LABS: BACTERIA,URINE MODERATE /HPF; SQUAMOUS EPITHELIAL CELL,UR RARE /HPF; WBC,URINE TNTC /HPF
[2019-04-24] MEDS ORDERED: CEFD300C3 PO (14:32)
[2019-04-24 14:36] VITALS: BP 130/80
== END 2019-04-24 14:40 | disposition home or self-care (01) ==
LOC: EDUNIT# 12:41 → ER 12:42
DX: N39.0 Urinary tract infection, site not specified (principal); I48.91 Unspecified atrial fibrillation; I25.10 Atherosclerotic heart disease of native coronary artery without angina pectoris; Z86.718 Personal history of other venous thrombosis and embolism; Z88.8 Allergy status to other drugs, medicaments and biological substances; Z79.82 Long term (current) use of aspirin; Z79.02 Long term (current) use of antithrombotics/antiplatelets; Z95.1 Presence of aortocoronary bypass graft; Z86.711 Personal history of pulmonary embolism; Z82.49 Family history of ischemic heart disease and other diseases of the circulatory system; Z80.42 Family history of malignant neoplasm of prostate
CPT/HCPCS: 51702; 81000; 87088

== ENCOUNTER 2019-07-09 11:33 | Emergency (ER) | payer MEDICARE ==
[~2019-07-09] VITALS: Ht 180 cm; Wt 93.0 kg
[2019-07-09] MEDS ORDERED: LEVO500T80 PO ×2 (11:53→11:54)
[2019-07-09] MEDS ORDERED: PHEN-639 PO (11:53)
--- NOTE | 2019-07-09 11:53 | ED GU-Male ---
General Chief Complaint: Catheter/Drain/Tube Problems Stated Complaint: CATHETER ISSUES Source: patient Exam Limitations: no limitations History of Present Illness Date Seen by Provider: July 09, 2019 Time Seen by Provider: 11:48 Initial Comments To ER with reports of catheter issues. Has a chronic indwelling Sandhu catheter, he reports suprapubic discomfort, or drainage from his Sandhu catheter for a few days. No fevers chills nausea or vomiting. This catheter was most recently changed in March. Timing/Duration: this morning Severity/Quality: moderate Location: suprapubic Radiation: none Activities at Onset: none Prior Genitourinary Problems: none Sexual [place] History: not active Associated Symptoms: urinary frequency Allergies and Home Medications Allergies Coded Allergies: metoprolol (Unverified Allergy, Mild, SKIN SENSITIVITY, 10/11/18) "sunburn" rivaroxaban (Unverified Allergy, Mild, N/V, 10/11/18) Home Medications Aspirin 81 Mg Tablet.dr, 81 MG PO DAILY, (Reported) Cefdinir 300 Mg Capsule, 300 MG PO BID Prescribed by: PHANI VILLA on 11/10/182122 Cefdinir 300 Mg Capsule, 300 MG PO BID Prescribed by: MARKIE FREIRE on 04/24/19 1432 Cephalexin 500 Mg Capsule, 500 MG PO TID Prescribed by: Gabrielle HINOJOSA on 11/10/18 1307 Cephalexin 500 Mg Tablet, 500 MG PO BID Prescribed by: MARKIE FREIRE on 01/31/19 1208 Clopidogrel Bisulfate 75 Mg Tablet, 75 MG PO DAILY, (Reported) Levofloxacin 500 Mg Tablet, 500 MG PO every other day Prescribed by: PHANI VILLA on 11/10/182122 Levofloxacin 500 Mg Tablet, 500 MG PO every other day Prescribed by: PHANI VILLA on 07/09/19 1153 Multivitamin 1 Each Tablet, 1 EACH PO DAILY, (Reported) [place] 3 Polyunsat Fatty Acids 1,000 Mg Cap, 1,000 MG PO DAILY, (Reported) Phenazopyridine HCl 100 Mg Tablet, 100 MG PO TID Prescribed by: PHANI VILLA on 07/09/19 1153 Patient Home Medication List Home Medication List Reviewed: Yes Review of Systems Review of Systems Constitutional: see HPI; No chills, No fever EENTM: see HPI Respiratory: no symptoms reported Cardiovascular: no symptoms reported Genitourinary: see HPI, burning, dysuria Musculoskeletal: no symptoms reported Skin: no symptoms reported Psychiatric/Neurological: No Symptoms Reported Endocrine: No Symptoms Reported Hematologic/Lymphatic: No Symptoms Reported Past Lmvjvxv-Hnivxj-Gsmzwx Hx Patient Social History Alcohol Beverage of Choice: Beer Drug of Choice: distant past history of marijuana use 2nd Hand Smoke Exposure: Yes (Father was a heavy smoker in his youth) Recent Foreign Travel: No Contact w/Someone Who Travel: No Recent Hopitalizations: No Immunizations Up To Date Tetanus Booster (TDap): Unknown PED Vaccines UTD: Yes Date of Pneumonia Vaccine: Sep 16, 2017 Date of Influenza Vaccine: Dec 05, 2017 Seasonal Allergies Seasonal Allergies: No Past Medical History Surgeries: Yes (CATARACT, INCISIONAL HERNIA) Cardiac, CABG, Eye Surgery, Open Heart Surgery, Pacemaker Respiratory: Yes (PE 4-5 TIMES, HX PNEUMONIA 2016) Pulmonary Embolism Currently Using CPAP: No Currently Using BIPAP: No Cardiac: Yes (CABG 07/2016; PACEMAKER; BIGEMINIY; LBBB; 1ST DEGREE AV BLOCK) Atrial Fibrillation, Cardiomyopathy, Coronary Artery Disease, Deep Vein Thrombosis, Heart Murmur, Irregular Heartbeat Neurological: No Reproductive Disorders: No Sexually Transmitted Disease: No HIV/AIDS: No Genitourinary: Yes (INDWELLING CATHETER) Benign Prostatic Hyperpl, Kidney Infection, Bladder Infection, Neurogenic Bladder, UTI-Chronic Gastrointestinal: Yes (RIGHT INGUINAL HERNIA) Gastroesophageal Reflux, Chronic Constipation Musculoskeletal: Yes (right ankle broken) Fractures Endocrine: No HEENT: Yes (READING GLASSES) Cataract Loss of Vision: Denies Hearing Impairment: Denies Cancer: No Psychosocial: No Integumentary: No Blood Disorders: No Adverse Reaction/Blood Tranf: No (HAS HAD BLOOD WITH NO REACTION) Family Medical History Cancer (LINING OF ABD CAVITY, AT AGE 80) 03 MOTHER Chest pain (FATHER OF [place] AT AGE 83) 03 FATHER Congestive heart failure 03 FATHER Family history: Arthritis 03 MOTHER, Onset:60 years & older Family history: Cardiovascular disease 03 FATHER Heart disease 03 FATHER Hypercholesterolemia 03 FATHER 03 MOTHER Myocardial infarction 03 FATHER Prostate cancer (DIAGNOSED AT 70 OR 73 PER PT) 03 FATHER Stroke 09 SISTER Visual impairment (SISTER WEARS GLASSES ) 09 SISTER No Family History of: Abdominal aortic aneurysm [place]'s disease Alcoholism Aphasia Cancer of colon Cataract Congenital heart disease Cystic fibrosis Dementia Dysphagia Family history: Allergy Family history: Alzheimer's disease Family history: Asthma Family history: Breast disease Family history: Coronary thrombosis Family history: Diabetes mellitus Family history: Gastrointestinal disease Family history: Glaucoma Family history: Hypertension Family history: Osteoporosis Family history: Thyroid disorder Headache Hearing loss Hereditary disease History of - anemia History of - disorder History of - respiratory disease History of drug abuse Human immunodeficiency virus (HIV) seropositivity Infertile Kidney disease Malignant neoplasm of lung Parkinson's disease Psychotic disorder Seizure disorder Tuberculosis Cancer, CAD Over 55 Years Old, CVA Physical Exam Vital Signs Capillary Refill : Height, Weight, BMI Height: 5'11.00" Weight: 210lbs. 7.0oz. 95.077308wq; 29.00 BMI Method:Stated General Appearance: WD/WN, no apparent distress HEENT: PERRL/EOMI, normal ENT inspection Neck: non-tender, full range of motion Respiratory: no respiratory distress, no accessory muscle use Gastrointestinal: normal bowel sounds, non tender Extremities: normal range of motion, non-tender Neurologic/Psychiatric: alert, normal mood/affect, oriented x 3 Skin: normal color, warm/dry Progress/Results/Core Measures Suspected Sepsis SIRS Temperature: Pulse: Respiratory Rate: Blood Pressure / Mean: Results/Orders My Orders Orders - PHANI VILLA APRN Ua Culture If Indicated (07/09/19 11:45) Sandhu Cath (07/09/19 11:45) Vital Signs/I&O Capillary Refill : Departure Communication (Admissions) Sandhu catheter was removed by me, a new 18 [place] Sandhu catheter was inserted easily which initially drained a bit of blood with appearance of a bit of tissue, this cleared up very quickly to cloudy yellow urine without any apparent hematuria Impression Primary Impression: Urinary tract infection Qualified Codes: N30.01 - Acute cystitis with hematuria Additional Impression: Urinary obstruction Disposition: HOME, SELF-CARE Condition: Stable Departure-Patient Inst. Decision time for Depature: 11:50 Referrals: [facility] (PCP/Family) Primary Care Physician Patient Instructions: Urinary Tract Infection, Adult (DC) Add. Discharge Instructions: 1. Medication as directed 2. Will call you in a day or 2 if your urine culture indicates need for a different or additional antibiotic. This will help with bladder discomfort but it will turn the urine orange reddish appearance, do not let this alarm you All discharge instructions reviewed with patient and/or family. Voiced understanding. Scripts Levofloxacin (Levofloxacin) 500 Mg Tablet 500 MG PO DAILY, #7 TAB 0 Refills Prov: PHANI VILLA APRN 07/09/19 Phenazopyridine HCl (Pyridium) 100 Mg Tablet 100 MG PO TID, #6 TAB Prov: PHANI VILLA APRN 07/09/19 PHANI VILLA APRN July 09, 2019 11:53
[2019-07-09 12:01] VITALS: BP 154/90
[2019-07-09 12:11] LABS: BILIRUBIN,URINE NEGATIVE (NEGATIVE); CLARITY,URINE CLOUDY; COLOR,URINE YELLOW; GLUCOSE, URINE (UA) NEGATIVE (NEGATIVE); KETONES,URINE NEGATIVE (NEGATIVE); LEUKOCYTE ESTERASE ,URINE 3+ (NEGATIVE); NITRITE,URINE NEGATIVE (NEGATIVE); PROTEIN,URINE 1+ (NEGATIVE)
[2019-07-09 12:15] LABS: BACTERIA,URINE TRACE /HPF; RBC,URINE >100 /HPF; WBC,URINE TNTC /HPF
== END 2019-07-09 12:01 | disposition home or self-care (01) ==
LOC: ER 11:33 → EDUNIT# 11:33 → ER 12:01
DX: N39.0 Urinary tract infection, site not specified (principal); N13.9 Obstructive and reflux uropathy, unspecified; I25.10 Atherosclerotic heart disease of native coronary artery without angina pectoris; I48.91 Unspecified atrial fibrillation; K21.9 Gastro-esophageal reflux disease without esophagitis; Z88.8 Allergy status to other drugs, medicaments and biological substances; Z79.82 Long term (current) use of aspirin; Z79.02 Long term (current) use of antithrombotics/antiplatelets; Z77.22 Contact with and (suspected) exposure to environmental tobacco smoke (acute) (chronic); Z95.0 Presence of cardiac pacemaker; Z95.1 Presence of aortocoronary bypass graft; Z86.711 Personal history of pulmonary embolism; Z82.49 Family history of ischemic heart disease and other diseases of the circulatory system; Z80.42 Family history of malignant neoplasm of prostate; Z80.8 Family history of malignant neoplasm of other organs or systems
CPT/HCPCS: 51702; 81000; 87077; 87088

== ENCOUNTER 2019-10-09 08:44 | Emergency (ER) | payer MEDICARE ==
[~2019-10-09] VITALS: Ht 180.3 cm; Wt 100.0 kg
[~2019-10-09 08:44] MED LIST changes: +PHEN-639 PO
[2019-10-09 08:51] VITALS: BP 171/88
--- NOTE | 2019-10-09 08:54 | ED GU-Male ---
General Stated Complaint: CATHETER History of Present Illness Date Seen by Provider: Oct 09, 2019 Time Seen by Provider: 08:53 Initial Comments 73-year-old male presents for Sandhu catheter insertion. Patient reports he's had a chronic Sandhu catheter since 2012. They took it out takes changes around 06/01/29 this morning. Since then he has been unable to get back in. He has not urinated since he to get out. Patient reports that his been quite a long time since he seen in urologist. Patient denies any abdominal pain, or any other systemic complaints. Allergies and Home Medications Allergies Coded Allergies: metoprolol (Unverified Allergy, Mild, SKIN SENSITIVITY, 10/11/18) "sunburn" rivaroxaban (Unverified Allergy, Mild, N/V, 10/11/18) Home Medications Aspirin 81 Mg Tablet.dr, 81 MG PO DAILY, (Reported) Cefdinir 300 Mg Capsule, 300 MG PO BID Prescribed by: PHANI VILLA on 11/10/182122 Cefdinir 300 Mg Capsule, 300 MG PO BID Prescribed by: MARKIE FREIRE on 04/24/19 1432 Cephalexin 500 Mg Capsule, 500 MG PO TID Prescribed by: Gabrielle HINOJOSA on 11/10/18 1307 Cephalexin 500 Mg Tablet, 500 MG PO BID Prescribed by: MARKIE FREIRE on 01/31/19 1208 Clopidogrel Bisulfate 75 Mg Tablet, 75 MG PO DAILY, (Reported) Levofloxacin 500 Mg Tablet, 500 MG PO every other day Prescribed by: PHANI VILLA on 11/10/182122 Levofloxacin 500 Mg Tablet, 500 MG PO DAILY Prescribed by: PHANI VILLA on 07/09/19 1154 Multivitamin 1 Each Tablet, 1 EACH PO DAILY, (Reported) [place] 3 Polyunsat Fatty Acids 1,000 Mg Cap, 1,000 MG PO DAILY, (Reported) Phenazopyridine HCl 100 Mg Tablet, 100 MG PO TID Prescribed by: PHANI VILLA on 07/09/19 1153 Patient Home Medication List Home Medication List Reviewed: Yes Review of Systems Review of Systems Constitutional: No chills, No fever, No weakness EENTM: no symptoms reported Respiratory: no symptoms reported Cardiovascular: no symptoms reported Genitourinary: see HPI Musculoskeletal: no symptoms reported Skin: no symptoms reported Psychiatric/Neurological: No Symptoms Reported Past [place]-Ifehyd-Kbqsvg Hx Past Med/Social Hx: Reviewed Nursing Past Med/Soc Hx Patient Social History Alcohol Beverage of Choice: Beer Drug of Choice: distant past history of marijuana use 2nd Hand Smoke Exposure: Yes (Father was a heavy smoker in his youth) Recent Hopitalizations: No Immunizations Up To Date Tetanus Booster (TDap): Unknown PED Vaccines UTD: Yes Date of Pneumonia Vaccine: Sep 16, 2017 Date of Influenza Vaccine: Dec 05, 2017 Seasonal Allergies Seasonal Allergies: No Past Medical History Surgeries: Yes (CATARACT, INCISIONAL HERNIA, ICB) Cardiac, CABG, Eye Surgery, Open Heart Surgery, Pacemaker Respiratory: Yes (PE 4-5 TIMES, HX PNEUMONIA 2016) Pulmonary Embolism Currently Using CPAP: No Currently Using BIPAP: No Cardiac: Yes (CABG 07/2016; PACEMAKER; BIGEMINIY; LBBB; 1ST DEGREE AV BLOCK) Atrial Fibrillation, Cardiomyopathy, Coronary Artery Disease, Deep Vein Thrombosis, Heart Murmur, Irregular Heartbeat Neurological: No Reproductive Disorders: No Sexually Transmitted Disease: No HIV/AIDS: No Genitourinary: Yes (INDWELLING CATHETER) Benign Prostatic Hyperpl, Kidney Infection, Bladder Infection, Neurogenic Bladder, UTI-Chronic Gastrointestinal: Yes (RIGHT INGUINAL HERNIA) Gastroesophageal Reflux, Chronic Constipation Musculoskeletal: Yes (right ankle broken) Fractures Endocrine: No HEENT: Yes (READING GLASSES) Cataract Loss of Vision: Denies Hearing Impairment: Denies Cancer: No Psychosocial: No Integumentary: No Blood Disorders: No Adverse Reaction/Blood Tranf: No (HAS HAD BLOOD WITH NO REACTION) Family Medical History Cancer (LINING OF ABD CAVITY, AT AGE 80) 03 MOTHER Chest pain (FATHER OF [place] AT AGE 83) 03 FATHER Congestive heart failure 03 FATHER Family history: Arthritis 03 MOTHER, Onset:60 years & older Family history: Cardiovascular disease 03 FATHER Heart disease 03 FATHER Hypercholesterolemia 03 FATHER 03 MOTHER Myocardial infarction 03 FATHER Prostate cancer (DIAGNOSED AT 70 OR 71 PER PT) 03 FATHER Stroke 09 SISTER Visual impairment (SISTER WEARS GLASSES ) 09 SISTER No Family History of: Abdominal aortic aneurysm [place]'s disease Alcoholism Aphasia Cancer of colon Cataract Congenital heart disease Cystic fibrosis Dementia Dysphagia Family history: Allergy Family history: Alzheimer's disease Family history: Asthma Family history: Breast disease Family history: Coronary thrombosis Family history: Diabetes mellitus Family history: Gastrointestinal disease Family history: Glaucoma Family history: Hypertension Family history: Osteoporosis Family history: Thyroid disorder Headache Hearing loss Hereditary disease History of - anemia History of - disorder History of - respiratory disease History of drug abuse Human immunodeficiency virus (HIV) seropositivity Infertile Kidney disease Malignant neoplasm of lung Parkinson's disease Psychotic disorder Seizure disorder Tuberculosis Cancer, CAD Over 55 Years Old, CVA Physical Exam Vital Signs Vital Signs - First Documented 10/09/19 08:51 Temp 36.4 Pulse 84 Resp 18 B/P (MAP) 171/88 (115) Pulse Ox 96 O2 Delivery Room Air Capillary Refill : Height, Weight, BMI Height: 5'11.00" Weight: 210lbs. 7.0oz. 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 I did recommend patient follows up with a urologist to see if there is other options besides chronic indwelling catheter. Patient is stable and will be discharged home Departure Impression Primary Impression: Chronic indwelling Sandhu catheter Disposition: 01 HOME, SELF-CARE Condition: Stable Departure-Patient Inst. Referrals: [facility] (PCP/Family) Primary Care Physician Patient Instructions: Urinary Obstruction (DC) Add. Discharge Instructions: Please follow-up with a urologist for further evaluation and treatment options Emergency department focuses on treating and ruling out life-threatening diseases. Whenever possible, a diagnosis is given. However, most patients are given an impression based on their history, physical exam, and workup during your brief time in the ER. Information about probable diagnosis and other educational material has been provided. Please take the time to read and understand this information. It is very important that you follow up with a physician as discussed during the visit today. Failure to adhere to your follow-up instructions may lead to severe disability, injury, or so please make sure to keep your appointments or obtain one as requested. Please keep in mind the emergency department is not designed to your primary care or "family doctor" and nonurgent issues are best evaluated by an outpatient physician KAIDEN MANN DO Oct 09, 2019 08:54
--- NOTE | 2019-10-09 09:48 | NUR ---
PATIENT ASKED IF UA WAS GOING TO BE DONE INFOMED DR MANN DECLINED TO DO ONE HE NEEDED TO FOLLOW UP WITH HIS DR IN [place] [facility].
--- NOTE | 2019-10-09 09:50 | NUR ---
ON DISCHARGE URINE BLOOD TINGED.
== END 2019-10-09 09:48 | disposition home or self-care (01) ==
LOC: EDUNIT# 08:44 → ER 08:47
DX: Z46.6 Encounter for fitting and adjustment of urinary device (principal); I48.91 Unspecified atrial fibrillation; I25.10 Atherosclerotic heart disease of native coronary artery without angina pectoris; N39.0 Urinary tract infection, site not specified; Z82.49 Family history of ischemic heart disease and other diseases of the circulatory system; Z85.46 Personal history of malignant neoplasm of prostate; Z88.8 Allergy status to other drugs, medicaments and biological substances; Z86.718 Personal history of other venous thrombosis and embolism; Z79.82 Long term (current) use of aspirin; Z79.02 Long term (current) use of antithrombotics/antiplatelets; Z86.711 Personal history of pulmonary embolism; Z95.1 Presence of aortocoronary bypass graft; Z95.0 Presence of cardiac pacemaker
CPT/HCPCS: 51702

== ENCOUNTER 2020-03-24 13:04 | Emergency (ER) | payer MEDICARE ==
[~2020-03-24] VITALS: Ht 180 cm; Wt 93.8 kg
[~2020-03-24 13:04] MED LIST changes: -AMIO200T4 PO; +AMIO200T6 PO; +ASPI-1238 PO; -ASPI-983 PO; -ENAL2.5T PO; +ENLP2.5T PO
--- NOTE | 2020-03-24 13:19 | ED GU-Female ---
General Chief Complaint: - Urinary Stated Complaint: CATHETER CHANGE Source: patient Exam Limitations: no limitations History of Present Illness Date Seen by Provider: Mar 24, 2020 Time Seen by Provider: 13:12 Initial Comments To ER with reports of needing catheter change. He states it is still draining but he has symptoms of a urinary tract infection which include suprapubic discomfort. Timing/Duration: yesterday Severity/Quality: mild Location: unknown Radiation: none Activities at Onset: none Associated Symptoms: denies symptoms Allergies and Home Medications Allergies Coded Allergies: metoprolol (Unverified Allergy, Mild, SKIN SENSITIVITY, 10/11/18) "sunburn" rivaroxaban (Unverified Allergy, Mild, N/V, 10/11/18) Home Medications Aspirin 81 Mg Tablet.dr, 81 MG PO DAILY, (Reported) Cefdinir 300 Mg Capsule, 300 MG PO BID Prescribed by: PHANI VILLA on 11/10/182122 Cefdinir 300 Mg Capsule, 300 MG PO BID Prescribed by: MARKIE FREIRE on 04/24/19 1432 Cephalexin 500 Mg Capsule, 500 MG PO TID Prescribed by: Gabrielle HINOJOSA on 11/10/18 1307 Cephalexin 500 Mg Tablet, 500 MG PO BID Prescribed by: MARKIE FREIRE on 01/31/19 1208 Clopidogrel Bisulfate 75 Mg Tablet, 75 MG PO DAILY, (Reported) Levofloxacin 500 Mg Tablet, 500 MG PO every other day Prescribed by: PHANI VILLA on 11/10/182122 Levofloxacin 500 Mg Tablet, 500 MG PO DAILY Prescribed by: PHANI VILLA on 07/09/19 1154 Multivitamin 1 Each Tablet, 1 EACH PO DAILY, (Reported) [place] 3 Polyunsat Fatty Acids 1,000 Mg Cap, 1,000 MG PO DAILY, (Reported) Phenazopyridine HCl 100 Mg Tablet, 100 MG PO TID Prescribed by: PHANI VILLA on 07/09/19 1153 Patient Home Medication List Home Medication List Reviewed: Yes Review of Systems Review of Systems Constitutional: see HPI; No chills, No fever EENTM: see HPI Respiratory: no symptoms reported Cardiovascular: no symptoms reported Genitourinary: no symptoms reported Musculoskeletal: no symptoms reported Skin: no symptoms reported Psychiatric/Neurological: No Symptoms Reported Endocrine: No Symptoms Reported Hematologic/Lymphatic: No Symptoms Reported Past Ttkevrf-Vbruur-Whmtxn Hx Patient Social History Alcohol Use: Occasionally Uses Number of Drinks Today: AA Alcohol Beverage of Choice: Beer Drug of Choice: distant past history of marijuana use Smoking Status: Never a Smoker 2nd Hand Smoke Exposure: Yes (Father was a heavy smoker in his youth) Recent Hopitalizations: No Immunizations Up To Date Tetanus Booster (TDap): Unknown PED Vaccines UTD: Yes Date of Pneumonia Vaccine: Sep 16, 2017 Date of Influenza Vaccine: Dec 05, 2017 Seasonal Allergies Seasonal Allergies: No Past Medical History Surgeries: Yes (CATARACT, INCISIONAL HERNIA, ICB) Cardiac, CABG, Eye Surgery, Open Heart Surgery, Pacemaker Respiratory: Yes (PE 4-5 TIMES, HX PNEUMONIA 2016) Pulmonary Embolism Currently Using CPAP: No Currently Using BIPAP: No Cardiac: Yes (CABG 07/2016; PACEMAKER; BIGEMINIY; LBBB; 1ST DEGREE AV BLOCK) Atrial Fibrillation, Cardiomyopathy, Coronary Artery Disease, Deep Vein Thrombosis, Heart Murmur, Irregular Heartbeat Neurological: No Reproductive Disorders: No Sexually Transmitted Disease: No HIV/AIDS: No Genitourinary: Yes (INDWELLING CATHETER) Benign Prostatic Hyperpl, Kidney Infection, Bladder Infection, Neurogenic Bladder, UTI-Chronic Gastrointestinal: Yes (RIGHT INGUINAL HERNIA) Gastroesophageal Reflux, Chronic Constipation Musculoskeletal: Yes (right ankle broken) Fractures Endocrine: No HEENT: Yes (READING GLASSES) Cataract Loss of Vision: Denies Hearing Impairment: Denies Cancer: No Psychosocial: No Integumentary: No Blood Disorders: No Adverse Reaction/Blood Tranf: No (HAS HAD BLOOD WITH NO REACTION) Family Medical History Cancer (LINING OF ABD CAVITY, AT AGE 80) 03 MOTHER Chest pain (FATHER OF [place] AT AGE 83) 03 FATHER Congestive heart failure 03 FATHER Family history: Arthritis 03 MOTHER, Onset:60 years & older Family history: Cardiovascular disease 03 FATHER Heart disease 03 FATHER Hypercholesterolemia 03 FATHER 03 MOTHER Myocardial infarction 03 FATHER Prostate cancer (DIAGNOSED AT 70 OR 71 PER PT) 03 FATHER Stroke 09 SISTER Visual impairment (SISTER WEARS GLASSES ) 09 SISTER No Family History of: Abdominal aortic aneurysm [place]'s disease Alcoholism Aphasia Cancer of colon Cataract Congenital heart disease Cystic fibrosis Dementia Dysphagia Family history: Allergy Family history: Alzheimer's disease Family history: Asthma Family history: Breast disease Family history: Coronary thrombosis Family history: Diabetes mellitus Family history: Gastrointestinal disease Family history: Glaucoma Family history: Hypertension Family history: Osteoporosis Family history: Thyroid disorder Headache Hearing loss Hereditary disease History of - anemia History of - disorder History of - respiratory disease History of drug abuse Human immunodeficiency virus (HIV) seropositivity Infertile Kidney disease Malignant neoplasm of lung Parkinson's disease Psychotic disorder Seizure disorder Tuberculosis Cancer, CAD Over 55 Years Old, CVA Physical Exam Vital Signs Vital Signs - First Documented 03/24/20 13:16 Temp 36.2 Pulse 93 Resp 20 B/P (MAP) 162/105 (124) Pulse Ox 100 Capillary Refill : Height, Weight, BMI Height: 5'11.00" Weight: 210lbs. 7.0oz. 95.133276dk; 30.00 BMI Method:Stated General Appearance: WD/WN, no apparent distress HEENT: PERRL/EOMI, normal ENT inspection Neck: non-tender, full range of motion Respiratory: no respiratory distress, no accessory muscle use Gastrointestinal: normal bowel sounds, non tender, soft Neurologic/Psychiatric: alert, normal mood/affect, oriented x 3 Skin: normal color, warm/dry Progress/Results/Core Measures Suspected Sepsis SIRS Temperature: Pulse: Respiratory Rate: Blood Pressure / Mean: Results/Orders My Orders Orders - PHANI VILLA APRN Ua Culture If Indicated (03/24/20 13:07) Vital Signs/I&O 03/24/20 13:16 Temp 36.2 Pulse 93 Resp 20 B/P (MAP) 162/105 (124) Pulse Ox 100 Capillary Refill : Departure Impression Primary Impression: Urinary tract infection Disposition: 01 HOME, SELF-CARE Condition: Stable Departure-Patient Inst. Decision time for Depature: 13:19 Referrals: [facility] (PCP/Family) Primary Care Physician Patient Instructions: Urinary Tract Infection, Adult (DC) Add. Discharge Instructions: All discharge instructions reviewed with patient and/or family. Voiced understanding. Scripts Phenazopyridine HCl (Phenazopyridine HCl) 100 Mg Tablet 100 MG PO TID, #10 TAB Prov: PHANI VILLA APRN 03/24/20 Levofloxacin (Levofloxacin) 500 Mg Tablet 500 MG PO DAILY, #7 TAB Prov: PHANI VILLA APRN 03/24/20 PHANI VILLA APRN Mar 24, 2020 13:19
[2020-03-24] MEDS ORDERED: PHEN-826 PO (13:24)
[2020-03-24] MEDS ORDERED: LEVO500T80 PO (13:24)
[2020-03-24] MEDS ORDERED: PHENAZOPYRIDINE 100 MG (PYRIDIUM) TABLET PO ONE (13:30)
[2020-03-24] MEDS ORDERED: LEVOFLOXACIN 500 MG TAB (LEVAQUIN) PO ONE (13:30)
[2020-03-24 13:47] LABS: BILIRUBIN,URINE NEGATIVE (NEGATIVE); CLARITY,URINE TURBID; COLOR,URINE YELLOW; GLUCOSE, URINE (UA) NEGATIVE (NEGATIVE); KETONES,URINE NEGATIVE (NEGATIVE); LEUKOCYTE ESTERASE ,URINE 2+ (NEGATIVE); NITRITE,URINE NEGATIVE (NEGATIVE); PH,URINE 5.5 (5-9); PROTEIN,URINE 2+ (NEGATIVE)
[2020-03-24 13:54] LABS: AMORPHOUS SEDIMENT,UR MOD AMOR URATES /LPF; BACTERIA,URINE MODERATE /HPF; RBC,URINE 25-50 /HPF; WBC,URINE 50-100 /HPF
[2020-03-24 14:07] VITALS: BP 122/78
== END 2020-03-24 14:07 | disposition home or self-care (01) ==
LOC: EDUNIT# 13:04 → ER 13:07
DX: N39.0 Urinary tract infection, site not specified (principal); Z88.8 Allergy status to other drugs, medicaments and biological substances; Z80.1 Family history of malignant neoplasm of trachea, bronchus and lung; Z82.49 Family history of ischemic heart disease and other diseases of the circulatory system; Z82.61 Family history of arthritis; Z80.42 Family history of malignant neoplasm of prostate; Z95.1 Presence of aortocoronary bypass graft; Z95.0 Presence of cardiac pacemaker; Z77.22 Contact with and (suspected) exposure to environmental tobacco smoke (acute) (chronic); Z79.82 Long term (current) use of aspirin
CPT/HCPCS: 51702; 81000; 87088

== ENCOUNTER → 2020-06-17 | Outpatient (CLI) | payer MEDICARE ==
[~2020-06-17] VITALS: Ht 180 cm; Wt 100.0 kg
[~2020-06-17] MED LIST changes: +CATHETER FLUSH 10 ML SYR IV PRN; -ISOS30TA3 PO; +ISOS30TA82 PO; -LISI10TA2 PO; +LISI10TA25 PO; +PHEN-826 PO; +REGADENOSON 0.4 MG/5 ML SYR (LEXISCAN) IV ONE
[2020-06-17 12:49] VITALS: BP_SYST 151
--- NOTE | 2020-06-18 12:38 | STRESS TEST ---
DATE OF SERVICE: 06/17/2020 RESTING AND POST REGADENOSON TECHNETIUM-99M TETROFOSMIN SPECT CT IMAGING ORDERING PHYSICIAN: Dr. Sullivan. PRIMARY PHYSICIAN: [facility]. CLINICAL DIAGNOSES: Coronary artery disease. Baseline images were carried out after injection of 10.94 mCi of technetium-99m Tetrofosmin. This was followed by 0.4 mg regadenoson and 30.6 mCi of technetium-99m Tetrofosmin for stress imaging. The electrocardiogram showed sinus rhythm at baseline. There was left bundle branch block at baseline. The electrocardiogram did not change significantly with the regadenoson infusion. A few isolated premature ventricular contractions were seen. Review of images at rest and following stress indicates a small apical perfusion defect and there is also a transient perfusion defect that is seen in the inferolateral and apical medel. Gated images show impairment of global left ventricular systolic function. There is localized apical akinesis. There is inferolateral hypokinesis. Left ventricular ejection fraction is calculated to be 37%. Left ventricular end diastolic volume is 189 mL. TID is absent (1.03). CONCLUSIONS: 1. This study is indicative of inferolateral and apical ischemia (moderate). 2. This study is indicative of apical infarction. 3. Localized apical akinesis and inferolateral hypokinesis. 4. Impairment of global left ventricular systolic function with ejection fraction of 37%. 5. Moderate cardiomegaly. Job ID: [id number] DocumentID: [id number] Dictated Date: 06/18/2020 08:33:05 Edm Operator Date: 06/18/2020 12:37:41 Dictated By: LUIS CARLOS SULLIVAN MD, MA, FACP, FACC,
== END ==
LOC: CARD 10:30
PROVIDERS: ATTEND Internal Medicine Cardiovascular Disease
DX: I25.10 Atherosclerotic heart disease of native coronary artery without angina pectoris (principal); I65.23 Occlusion and stenosis of bilateral carotid arteries; I08.2 Rheumatic disorders of both aortic and tricuspid valves
CPT/HCPCS: 78452; 93017; 93306; A9502

== ENCOUNTER 2020-07-08 07:21 | Day surgery (SDC) | payer MEDICARE ==
[~2020-07-08] VITALS: Ht 180 cm; Wt 101.0 kg
[2020-07-08] VITALS (11 sets, daily range): BP systolic 127–155; BP diastolic 59–97
[~2020-07-08 07:21] MED LIST changes: -CATHETER FLUSH 10 ML SYR IV PRN; +HEParin (CATH LAB) 2,000 ML IV ONE; +LIDOCAINE 1% INJ 20 ML 20 ML VIAL ONE; +NS IV 1000 ML 1,000 ML ONE; -REGADENOSON 0.4 MG/5 ML SYR (LEXISCAN) IV ONE
[2020-07-08] MEDS ORDERED: NS IV 1000 ML 1,000 ML IV SCH ×2 (07:30→11:00)
[2020-07-08] MEDS ORDERED: METO-333 PO (07:46)
[2020-07-08] MEDS ORDERED: ATOR20TA66 PO (07:46)
[2020-07-08] MEDS ORDERED: LISI2.5T PO (07:46)
[2020-07-08 07:54] LABS: HEMOGLOBIN 12.5 g/dL (13.3-17.7); MEAN PLATELET VOLUME 9.9 fL (9.0-12.2); WHITE BLOOD COUNT 5.6 10^3/uL (4.3-11.0)
[2020-07-08 08:14] LABS: ALBUMIN 4.4 GM/DL (3.2-4.5); BILIRUBIN,TOTAL 0.6 MG/DL (0.1-1.0); CALCIUM 9.1 MG/DL (8.5-10.1); CREATININE SERUM 1.27 MG/DL (0.60-1.30); TOTAL PROTEIN 7.6 GM/DL (6.4-8.2)
[2020-07-08] MEDS ORDERED: fentaNYL INJ 100 MCG/2 ML AMP ONE (08:41)
[2020-07-08] MEDS ORDERED: MIDAZOLAM 5 MG/5 ML (VERSED) VIAL ONE (08:41)
--- NOTE | 2020-07-08 10:33 | Cardiac Procedure Note-CS/ASA ---
Pre-Procedure Note Pre-Op Procedure Note H&P Reviewed The H&P was reviewed, patient examined and no changes noted. Date H&P Reviewed: July 08, 2020 Time H&P Reviewed: 08:45 Conscious Sedation Pre-Proced Time 08:45 ASA Score 3 For ASA 3 and 4: Consider anesthesia and medical clearance. Also, for patients with a history of failed moderate sedation consider anesthesia. Airway Lungs Heart ASA score ASA 1: a normal healthy patient ASA 2: a patient with a mild systemic disease (mid diabetes, controlled hypertension, obesity ASA 3: a patient with a severe systemic disease that limits activity (angina, COPD, prior Myocardial infarction) ASA 4: a patient with an incapacitating disease that is a constant threat to life (CHF, renal failure) ASA 5: a moribund patient not expected to survive 24 hrs. (ruptured aneurysm) ASA 6: a declared brain- patient whose organs are being harvested. For emergent operations, add the letter E after the classification Mallampati Classification Grade 2 Sedation Plan Analgesia, Amnesia, Plan communicated to team members, Discussed options with patient/fam, Discussed risks with patient/fam The patient is an appropriate candidate to undergo the planned procedure, sedation, and anesthesia. The patient immediately re-assessed prior to indication. LUIS CARLOS MASON MD FACP FAC CCDS July 08, 2020 10:33
[2020-07-08] MEDS ORDERED: CLOP75TA69 PO (10:57)
--- NOTE | 2020-07-08 10:57 | Discharge Inst-Cardiology ---
Discharge Inst-Cardiac Discharge Medications New Medications: Clopidogrel Bisulfate (Plavix) 75 Mg Tablet 75 MG PO DAILY for 30 Days, #30 TAB 5 Refills Continued Medications: Aspirin (Aspir 81) 81 Mg Tablet.dr 81 MG PO DAILY, TAB Atorvastatin Calcium (Atorvastatin Calcium) 20 Mg Tablet 20 MG PO HS, TAB Lisinopril (Lisinopril) 2.5 Mg Tablet 2.5 MG PO DAILY, TAB Metoprolol Tartrate (Metoprolol Tartrate) 25 Mg Tablet 25 MG PO DAILY, TAB Multivitamin (Multiple Vitamins) 1 Each Tablet 1 EACH PO DAILY, TAB [place] 3 Polyunsat Fatty Acids (Fish Oil 1,000 mg Capsule) 1,000 Mg Cap 1000 MG PO DAILY, CAP LUIS CARLOS MASON MD FACP FAC CCDS July 08, 2020 10:57
--- NOTE | 2020-07-08 10:58 | Discharge Inst-Post CATH ---
Discharge Inst-CATH/EP Post Cardiac Cath/EP D/C Inst Follow Up/Plan F/u with Dr Sullivan in 1-2 weeks ACTIVITY * Go Home directly and rest. * Limit activity of the leg (or wrist if it was used) for 7 days including aerobics, swimming, jogging, bicycling, etc. * Restrict stair-climbing for 7 days if possible, if not, climb up with your non-cath leg, then bring together on the same step. * Avoid lifting, pushing, pulling or excessive movement of the affected extremity for 7 days. * Customary sexual activity may be resumed after 2 days-use caution not to use a position that strains or causes pain to the affected extremity. * No driving for 24 hours. * NO SMOKING. * Avoid straining for bowel movements for 7 days. * Gentle walking on level ground is allowed. * Returning to work will depend on the type of procedure and the results. Your doctor will discuss this with you. CALL YOUR DOCTOR FOR ANY OF THE FOLLOWING: *If bleeding from the puncture site occurs- Apply gentle pressure to site with clean cloth and call your doctor or EMS. * If a knot or lump forms under the skin, increases in size, or causes pain. * If bruising appears to be worsening or moving further down your leg instead of disappearing. * Temperature above 101 F. CARE OF YOUR GROIN INCISION; * Bruising or purple discoloration of the skin near the puncture site is common. * You may shower only, no bathtub bathing for 5 days. Be careful to avoid slipping as your leg may feel stiff. * If a closure device was used on your femoral artery, please see the attached guide regarding care of the device and your leg. * Leave dressing on FOR 24 hours. CARE OF YOUR WRIST INCISION; * Bruising or purple discoloration of the skin near the puncture site is common. * You may shower. * DO NOT submerge wrist. * Leave dressing on FOR 24 hours. LUIS CARLOS SULLIVAN MD FACP FAC CCDS July 08, 2020 10:58
[2020-07-08] MEDS ORDERED: PATIENT MAY USE OWN MEDS, ALL PO SCH (11:00)
--- NOTE | 2020-07-08 14:00 | CARDIAC CATHETERIZATION ---
DATE OF SERVICE: 07/08/2020 CARDIAC CATHETERIZATION REPORT The patient is a 74-year-old man who has a history of coronary artery bypass surgery, who has exertional shortness of breath and a recent myocardial perfusion imaging study was indicative of inferolateral and apical ischemia. Cardiac catheterization was carried out today after having obtained an informed consent. DESCRIPTION OF PROCEDURE: He was brought to the cardiac catheterization laboratory in a fasting state. Right groin was prepared and draped in the usual sterile fashion. Lidocaine 1% was used for local anesthesia. Modified Seldinger technique was used to advance a 5-Kittitian sheath in right femoral artery. We used 5-Kittitian JL4 catheter for left coronary angiography. We used 5-Kittitian JR4 catheter for angiography of the right coronary artery and for angiography of the saphenous vein graft to the right coronary artery. We used the JR4 catheter for two of the other three aortocoronary grafts. For the most cephalic graft, we used a 5-Kittitian left coronary artery bypass catheter. Engaging the graft was extremely difficult. We were able to engage all the grafts. To confirm that the grafts were all occluded other than the aortocoronary graft to the right coronary, we used a pigtail catheter for aortic root and ascending aortic angiography. We used multiple catheters to try and engage the left internal mammary artery graft to the left anterior descending artery. This was extremely difficult to do. We did obtain angiograms of the left subclavian artery, but we were not able to successfully engage the left internal mammary artery graft. This is because of extreme tortuosity of the subclavian artery that constantly directs the wire into the vertebral artery and does not allow it to be advanced into the subclavian/axillary artery. Because we did find competitive flow in the left anterior descending and because we were able to see the left internal mammary artery graft retrogradely and because 30 minutes of fluoroscopy time had been spent, we did not make further attempts at trying to engage the left internal mammary artery graft. The diagnostic catheters were removed. Angiography of the right femoral artery had been carried out through the sheath at the beginning of the procedure. At the end of the procedure, Mynx was used to achieve hemostasis. He tolerated the procedure well. HEMODYNAMICS: Left ventricular end-diastolic pressure following coronary angiography was 11 mmHg. LEFT VENTRICULAR ANGIOGRAPHY: Left ventricular angiography was not performed to conserve contrast. AORTIC ROOT ANGIOGRAPHY/ASCENDING AORTIC ANGIOGRAPHY: This indicated that of the four aortocoronary grafts, only one was patent and this was the one to the right coronary. There did not appear to be ascending aortic aneurysm or dissection. Aortic valve leaflets exhibit good leaflet excursion. AORTIC ARCH ANGIOGRAPHY: Aortic arch angiography was also performed after pulling the pigtail catheter back from the ascending aorta to the aortic arch. This was done to further delineate the neck arteries to allow access to the left internal mammary artery graft for selective engagement. This demonstrated that there was some calcification of the aortic arch. The neck arteries do not exhibit significant disease, to the extent visualized. The left subclavian artery was found to be extremely tortuous and this was the reason that we were not able to selectively engage the left internal mammary artery graft. CORONARY ARTERY ANGIOGRAPHY: There is diffuse coronary calcification. Left anterior descending artery has moderate proximal disease and severe mid vessel disease. The distal left anterior descending artery has competitive flow and the distal right coronary artery does not appear to have significant disease and the distal end of the left internal mammary artery graft to the distal left anterior descending artery is visualized. The right coronary artery exhibits severe proximal mid vessel and distal disease. There is competitive flow in the distal right coronary artery. The left circumflex artery has approximately 90% ostial stenosis and also has 90% mid vessel stenosis. This artery also exhibits diffuse moderate disease and calcification this. SAPHENOUS VEIN GRAFT ANGIOGRAPHY: All aortocoronary grafts are occluded except for the aortocoronary graft to the distal right coronary artery. This graft goes to the posterior descending branch of the right coronary artery and is found to be patent and free of significant disease. The other aortocoronary grafts are two diagonal and two obtuse marginals. These are occluded. CONCLUSIONS: 1. [place] coronary artery disease consisting of severe mid vessel disease of the left anterior descending with apparently patent left internal mammary artery graft to distal left anterior descending, severe ostial and mid vessel disease of the left circumflex, severe ostial and mid vessel and distal vessel disease of the right coronary. The right coronary artery is dominant. 2. Patent aortocoronary graft to the posterior descending branch of the right coronary without significant disease. 3. Occluded aortocoronary grafts to diagonal and obtuse marginals. 4. Patent left internal mammary artery graft to distal left anterior descending. This is confirmed by competitive flow in the distal left anterior descending and visualization of the distal part of the left internal mammary artery graft. The left internal mammary artery could not selectively be engaged antegradely. This is because of extreme tortuosity of the left subclavian artery that did not permit advancement of the catheter to the left internal mammary artery graft. 5. Normal left ventricular end-diastolic pressure. DISCUSSION AND RECOMMENDATIONS: We will discuss this with the patient in detail. The coronary and graft anatomy does not appear to have changed significantly from the last cardiac catheterization of 2019. However, there is ischemia in the inferolateral wall, probably on account of the left circumflex artery disease. This would require relatively complex percutaneous intervention. We did not undertake this at this time because of considerable amount of fluoroscopy time spent in doing the diagnostic catheterization. If the patient continues to have symptoms and wishes to proceed with relatively high risk intervention to the left circumflex, we will do so. As stated, the anatomy does not appear to be much different from that of 2019. Job ID: [id number] DocumentID: [id number] Dictated Date: 07/08/2020 10:51:19 [employer] Date: 07/08/2020 14:00:03 Dictated By: LUIS CARLOS MASON MD, MA, FACP, FACC, MTDD
== END 2020-07-08 14:35 | disposition home or self-care (01) ==
LOC: CATH 07:21 → SDC 11:08 → CATH 14:35
PROVIDERS: ATTEND Internal Medicine Cardiovascular Disease
DX: I25.10 Atherosclerotic heart disease of native coronary artery without angina pectoris (principal); N18.9 Chronic kidney disease, unspecified; I50.22 Chronic systolic (congestive) heart failure; I65.23 Occlusion and stenosis of bilateral carotid arteries; E78.2 Mixed hyperlipidemia; Z79.82 Long term (current) use of aspirin; Z79.899 Other long term (current) drug therapy; Z79.01 Long term (current) use of anticoagulants; Z95.1 Presence of aortocoronary bypass graft
CPT/HCPCS: 36221; 80053; 80061; 85027; 85610; 85730; 87081; 93459; 93567; C1760; C1769 ×3; C1894; 36415

== ENCOUNTER 2020-10-18 11:43 | Inpatient (IN) | payer MEDICARE ==
[~2020-10-18] VITALS: Ht 180 cm; Wt 100.3 kg
[~2020-10-18 11:43] MED LIST changes: -HEParin (CATH LAB) 2,000 ML IV ONE; -LIDOCAINE 1% INJ 20 ML 20 ML VIAL ONE; +LISI2.5T PO; +METO-333 PO; -NS IV 1000 ML 1,000 ML ONE; -OMEP40CA27 PO; +OMEP40CA6 PO; -SULF1TAB35 PO; +SULF1TAB38 PO
[2020-10-18] MEDS: NITROGLYCERIN 0.4 MG SL TABS BTL 25'S SL PRN ×2 (11:58→12:04)
--- NOTE | 2020-10-18 12:02 | ED Chest Pain ---
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 Under stress as he recently had to put down his dog. Chest pain resolved by the time EMS arrived. Upon arrival to ER he has some recurrent chest pressure. History of CABG. Timing/Duration: 4-6 hours Severity/Quality: moderate Location: central Activities at Onset: activity Prior CP/Workup: cardiac cath ASA po LIVESTOCK RANCH HAND: No NTG SL LIVESTOCK RANCH HAND: No Allergies and Home Medications Allergies Coded Allergies: rivaroxaban (Unverified Allergy, Mild, N/V, 10/11/18) Home Medications Aspirin 81 Mg Tablet.dr, 81 MG PO DAILY, (Reported) Atorvastatin Calcium 20 Mg Tablet, 20 MG PO HS, (Reported) Clopidogrel Bisulfate 75 Mg Tablet, 75 MG PO DAILY Prescribed by: LUIS CARLOS MASON on 07/08/20 1057 Lisinopril 2.5 Mg Tablet, 2.5 MG PO DAILY, (Reported) Metoprolol Tartrate 25 Mg Tablet, 25 MG PO DAILY, (Reported) Multivitamin 1 Each Tablet, 1 EACH PO DAILY, (Reported) [place] 3 Polyunsat Fatty Acids 1,000 Mg Cap, 1,000 MG PO DAILY, (Reported) Patient Home Medication List Home Medication List Reviewed: Yes Review of Systems Review of Systems Constitutional: see HPI EENTM: No Symptoms Reported Respiratory: No Symptoms Reported Cardiovascular: See HPI, Chest Pain Gastrointestinal: No Symptoms Reported Genitourinary: No Symptoms Reported Musculoskeletal: no symptoms reported Skin: no symptoms reported Psychiatric/Neurological: No Symptoms Reported Endocrine: No Symptoms Reported Hematologic/Lymphatic: No Symptoms Reported Past Frjyuly-Hqpdkd-Leinps Hx Immunizations Up To Date Tetanus Booster (TDap): Unknown PED Vaccines UTD: Yes Seasonal Allergies Seasonal Allergies: No Past Medical History Surgeries: Yes (CATARACT, INCISIONAL HERNIA, ICB) Cardiac, CABG, Eye Surgery, Open Heart Surgery, Pacemaker Respiratory: Yes (PE 4-5 TIMES, HX PNEUMONIA 2016) Pulmonary Embolism Currently Using CPAP: No Currently Using BIPAP: No Cardiac: Yes (CABG 07/2016; PACEMAKER; BIGEMINIY; LBBB; 1ST DEGREE AV BLOCK) Atrial Fibrillation, Cardiomyopathy, Coronary Artery Disease, Deep Vein Thrombosis, Heart Murmur, Irregular Heartbeat Neurological: No Reproductive Disorders: No Sexually Transmitted Disease: No HIV/AIDS: No Genitourinary: Yes (INDWELLING CATHETER) Benign Prostatic Hyperpl, Kidney Infection, Bladder Infection, Neurogenic Bladder, UTI-Chronic Gastrointestinal: Yes (RIGHT INGUINAL HERNIA) Gastroesophageal Reflux, Chronic Constipation Musculoskeletal: Yes (right ankle broken) Fractures Endocrine: No HEENT: Yes (READING GLASSES) Cataract Loss of Vision: Denies Hearing Impairment: Denies Cancer: No Psychosocial: No Integumentary: No Blood Disorders: No Adverse Reaction/Blood Tranf: No (HAS HAD BLOOD WITH NO REACTION) Family Medical History Cancer (LINING OF ABD CAVITY, AT AGE 80) 03 MOTHER Chest pain (FATHER OF [place] AT AGE 83) 03 FATHER Congestive heart failure 03 FATHER Family history: Arthritis 03 MOTHER, Onset:60 years & older Family history: Cardiovascular disease 03 FATHER Heart disease 03 FATHER Hypercholesterolemia 03 FATHER 03 MOTHER Myocardial infarction 03 FATHER Prostate cancer (DIAGNOSED AT 72 OR 73 PER PT) 03 FATHER Stroke 09 SISTER Visual impairment (SISTER WEARS GLASSES ) 09 SISTER No Family History of: Abdominal aortic aneurysm [place]'s disease Alcoholism Aphasia Cancer of colon Cataract Congenital heart disease Cystic fibrosis Dementia Dysphagia Family history: Allergy Family history: Alzheimer's disease Family history: Asthma Family history: Breast disease Family history: Coronary thrombosis Family history: Diabetes mellitus Family history: Gastrointestinal disease Family history: Glaucoma Family history: Hypertension Family history: Osteoporosis Family history: Thyroid disorder Headache Hearing loss Hereditary disease History of - anemia History of - disorder History of - respiratory disease History of drug abuse Human immunodeficiency virus (HIV) seropositivity Infertile Kidney disease Malignant neoplasm of lung Parkinson's disease Psychotic disorder Seizure disorder Tuberculosis Cancer, CAD Over 55 Years Old, CVA Physical Exam Vital Signs Vital Signs - First Documented 10/18/20 10/18/20 11:50 12:05 Temp 36.3 Pulse 78 Resp 18 B/P (MAP) 142/72 (95) Pulse Ox 94 O2 Delivery Nasal Cannula O2 Flow Rate 2.0 Capillary Refill : Height, Weight, BMI Height: 5'11.00" Weight: 210lbs. 7.0oz. [id number]; 31.17 BMI Method:Stated General Appearance: No Apparent Distress, WD/WN, Other (Alert and oriented very pleasant hemodynamically stable) HEENT: PERRL/EOMI, TMs Normal Respiratory: No Accessory Muscle Use, No Respiratory Distress Cardiovascular: Regular Rate, Rhythm, Normal Peripheral Pulses Gastrointestinal: Non Tender, Soft Extremity: Normal Capillary Refill, Normal Inspection Neurologic/Psychiatric: Alert, Oriented x3 Skin: Normal Color, Warm/Dry Progress/Results/Core Measures Results/Orders Lab Results Laboratory Tests Test 10/18/20 12:10 Range/Units White Blood Count 4.8 4.3-11.0 10^3/uL Red Blood Count 4.68 4.30-5.52 10^6/uL Hemoglobin 11.2 L 13.3-17.7 g/dL Hematocrit 37 L 40-54 % Mean Corpuscular Volume 78 L 80-99 fL Mean Corpuscular Hemoglobin 24 L 25-34 pg Mean Corpuscular Hemoglobin Concent 31 L 32-36 g/dL Red Cell Distribution Width 17.6 H 10.0-14.5 % Platelet Count 197 130-400 10^3/uL Mean Platelet Volume 9.6 9.0-12.2 fL Immature Granulocyte % (Auto) 0 % Neutrophils (%) (Auto) 58 42-75 % Lymphocytes (%) (Auto) 24 12-44 % Monocytes (%) (Auto) 15 H 0-12 % Eosinophils (%) (Auto) 2 0-10 % Basophils (%) (Auto) 1 0-10 % Neutrophils # (Auto) 2.8 1.8-7.8 10^3/uL Lymphocytes # (Auto) 1.2 1.0-4.0 10^3/uL Monocytes # (Auto) 0.7 0.0-1.0 10^3/uL Eosinophils # (Auto) 0.1 0.0-0.3 10^3/uL Basophils # (Auto) 0.0 0.0-0.1 10^3/uL Immature Granulocyte # (Auto) 0.0 0.0-0.1 10^3/uL Prothrombin Time 14.8 H 12.2-14.7 SEC INR Comment 1.1 0.8-1.4 Activated Partial Thromboplast Time 28 24-35 SEC Sodium Level 135 135-145 MMOL/L Potassium Level 4.4 3.6-5.0 MMOL/L Chloride Level 105 98-107 MMOL/L Carbon Dioxide Level 20 L 21-32 MMOL/L Anion Gap 10 5-14 MMOL/L Blood Urea Nitrogen 22 H 7-18 MG/DL Creatinine 1.59 H 0.60-1.30 MG/DL Estimat Glomerular Filtration Rate 43 BUN/Creatinine Ratio 14 Glucose Level 97 70-105 MG/DL Calcium Level 9.2 8.5-10.1 MG/DL Corrected Calcium 9.2 8.5-10.1 MG/DL Magnesium Level 1.9 1.6-2.4 MG/DL Total Bilirubin 0.6 0.1-1.0 MG/DL Aspartate Amino Transf (AST/SGOT) 18 5-34 U/L Alanine Aminotransferase (ALT/SGPT) 13 0-55 U/L Alkaline Phosphatase 81 40-136 U/L Myoglobin 258.7 H 10.0-92.0 NG/ML Troponin I 0.069 H <0.028 NG/ML B-Type Natriuretic Peptide 93.7 <100.0 PG/ML Total Protein 6.9 6.4-8.2 GM/DL Albumin 4.0 3.2-4.5 GM/DL My Orders Orders - PHANI VILLA APRN Cbc With Automated Diff (10/18/20 11:50) Magnesium (10/18/20 11:50) Chest 1 View, Ap/Pa Only (10/18/20 11:50) Ekg Tracing (10/18/20 11:50) Comprehensive Metabolic Panel (10/18/20 11:50) Myoglobin Serum (10/18/20 11:50) Protime With Inr (10/18/20 11:50) Partial Thromboplastin Time (10/18/20 11:50) O2 (10/18/20 11:50) Monitor-Rhythm Ecg Trace Only (10/18/20 11:50) Lipid Panel (10/19/20 06:00) Ed Iv/Invasive Line Start (10/18/20 11:50) BNP (10/18/20 11:50) Troponin I (10/18/20 11:50) Nitroglycerin 0.4 Mg Btl 25's (Nitrostat (10/18/20 12:00) Morphine Injection (Morphine Injection (10/18/20 12:13) Morphine Injection (Morphine Injection (10/18/20 12:30) Morphine Injection (Morphine Injection (10/18/20 13:13) Medications Given in ED Current Medications Medications Dose Ordered Sig/Sukhjinder Route Start Time Stop Time Status Last Admin Dose Admin Morphine Sulfate 10 mg STK-MED ONCE .ROUTE 10/18/20 12:13 10/18/20 12:17 DC 10/18/20 12:18 4 MG Nitroglycerin 0.4 mg UD PRN SL 10/18/20 12:00 10/18/20 12:04 0.4 MG Vital Signs/I&O 10/18/20 10/18/20 11:50 12:05 Temp 36.3 Pulse 78 Resp 18 B/P (MAP) 142/72 (95) Pulse Ox 94 O2 Delivery Nasal Cannula Room Air O2 Flow Rate 2.0 Departure Communication (Admissions) 1315-Spoke with Dr. Longoria he will be down to see the patient Impression Primary Impression: Chest pain Disposition: ADMITTED INPATIENT Condition: Stable Admissions Decision to Admit Reason: Admit from ER (General) Decision to Admit/Date: Oct 18, 2020 Time/Decision to Admit Time: 14:58 Departure-Patient Inst. Referrals: [facility] (PCP/Family) Primary Care Physician PHANI VILLA APRN Oct 18, 2020 12:01
--- NOTE | 2020-10-18 12:10 | Diagnostic Imaging Report ---
Portable erect AP chest at 12:03. Indication: Respiratory distress The mild cardiomegaly, the sternal wires and surgical clips and a left-sided pacemaker seen on the prior exam of 01/31/2019 are again evident and no different. In the interval since the prior study vague areas of increased density have developed in the left lung base. These findings are suspicious for pneumonia/atelectasis. There may be a small amount of fluid present as well. The left upper lung and right lung are generally clear. The mediastinum is not widened. The osseous structures are intact. Impression: 1. The findings do suggest that there is now left lower lobe pneumonia/atelectasis. Clinical followup is recommended. 2. There is no acute cardiopulmonary abnormality noted otherwise. Dictated by: Dictated on workstation # [id number]
[2020-10-18] MEDS ORDERED: morphine INJ 10 MG/ML 1ML (SYR OR VIAL) ONE (12:13)
[2020-10-18 12:17] LABS: BASOPHILS % (AUTO) 1 % (0-10); EOSINOPHILS # (AUTO) 0.1 10^3/uL (0.0-0.3); EOSINOPHILS % (AUTO) 2 % (0-10); HEMATOCRIT 37 % (40-54); HEMOGLOBIN 11.2 g/dL (13.3-17.7); LYMPHOCYTES # (AUTO) 1.2 10^3/uL (1.0-4.0); LYMPHOCYTES % (AUTO) 24 % (12-44); MEAN CORPUSCULAR HEMOGLOBIN 24 pg (25-34); MEAN CORPUSCULAR HGB CONC 31 g/dL (32-36); MEAN CORPUSCULAR VOLUME 78 fL (80-99); MEAN PLATELET VOLUME 9.6 fL (9.0-12.2); MONOCYTES # (AUTO) 0.7 10^3/uL (0.0-1.0); MONOCYTES % (AUTO) 15 % (0-12); NEUTROPHILS # (AUTO) 2.8 10^3/uL (1.8-7.8); NEUTROPHILS % (AUTO) 58 % (42-75); PLATELET COUNT 197 10^3/uL (130-400); WHITE BLOOD COUNT 4.8 10^3/uL (4.3-11.0)
[2020-10-18 12:29] LABS: INR 1.1 (0.8-1.4); PROTHROMBIN TIME PATIENT 14.8 SEC (12.2-14.7)
[2020-10-18] MEDS ORDERED: morphine INJ 10 MG/ML 1ML (SYR OR VIAL) IV ONE (12:30)
[2020-10-18 12:33] LABS: POTASSIUM 4.4 MMOL/L (3.6-5.0)
[2020-10-18 12:34] LABS: CALCIUM 9.2 MG/DL (8.5-10.1)
[2020-10-18 12:36] LABS: TOTAL PROTEIN 6.9 GM/DL (6.4-8.2)
[2020-10-18 12:37] LABS: BILIRUBIN,TOTAL 0.6 MG/DL (0.1-1.0)
[2020-10-18 12:39] LABS: CREATININE SERUM 1.59 MG/DL (0.60-1.30)
[2020-10-18 12:42] LABS: MAGNESIUM 1.9 MG/DL (1.6-2.4)
[2020-10-18] MEDS ORDERED: morphine INJ 10 MG/ML 1ML (SYR OR VIAL) IVP STA (13:13)
[2020-10-18] MEDS ORDERED: ENOXAPARIN 100 MG/1 ML (LOVENOX) SYR SC ONE (13:45)
[2020-10-18 15:30] VITALS: BP 165/83
[2020-10-18] MEDS ORDERED: morphine INJ 4 MG/ML 1 ML (VIAL/SYRINGE) IV PRN (15:30)
[2020-10-18] MEDS: CLOPIDOGREL 75 MG (PLAVIX) TABLET PO SCH (15:48)
[2020-10-18] MEDS: ASPIRIN 81 MG CHEW (CHILDREN'S ASA) PO SCH (15:48)
--- NOTE | 2020-10-18 17:37 | Consultation-Cardiology ---
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 Chest discomfort in a small are in the upper midsternum, nonradiating, mild to mod, not fully relieved with rest or nitro, resolving gradually over a course of a few hours. Feels well at this time. No palp or syncope or swelling Review of Systems-Cardiology Review of Systems Constitutional: malaise; No weight loss, No weight gain Eyes: No vision change Ears/Nose/Throat: No ear discharge, No nasal drainage, No recent hearing loss Respiratory: As described under HPI Cardiovascular: As described under HPI Gastrointestinal: No diarrhea, No nausea, No vomiting Genitourinary: No dysuria, No hematuria, No urine frequency changes Musculoskeletal: No back pain Skin: No rash, No ulcerations Psychiatric/Neurological: No seizure, No focal weakness, No syncope Hematologic: No bleeding abnormalities HPW-Vzbomv-Hgzniv Hx Patient Social History Smoking Status: Never a Smoker 2nd Hand Smoke Exposure: Yes (Father was a heavy smoker in his youth) Have you traveled recently?: No Alcohol Use?: Yes Pt feels they are or have been: No Immunizations Up To Date Tetanus Booster (TDap): Unknown Date of Pneumonia Vaccine: Sep 16, 2017 Date of Influenza Vaccine: Jan 25, 2019 Past Medical History PMH As described under Assessment. Family Medical History Family History: Cancer (LINING OF ABD CAVITY, AT AGE 80) 03 MOTHER Chest pain (FATHER OF OR AT AGE 83) 03 FATHER Congestive heart failure 03 FATHER Family history: Arthritis 03 MOTHER, Onset:60 years & older Family history: Cardiovascular disease 03 FATHER Heart disease 03 FATHER Hypercholesterolemia 03 FATHER 03 MOTHER Myocardial infarction 03 FATHER Prostate cancer (DIAGNOSED AT 70 OR 73 PER PT) 03 FATHER Stroke 09 SISTER Visual impairment (SISTER WEARS GLASSES ) 09 SISTER No Family History of: Abdominal aortic aneurysm [place]'s disease Alcoholism Aphasia Cancer of colon Cataract Congenital heart disease Cystic fibrosis Dementia Dysphagia Family history: Allergy Family history: Alzheimer's disease Family history: Asthma Family history: Breast disease Family history: Coronary thrombosis Family history: Diabetes mellitus Family history: Gastrointestinal disease Family history: Glaucoma Family history: Hypertension Family history: Osteoporosis Family history: Thyroid disorder Headache Hearing loss Hereditary disease History of - anemia History of - disorder History of - respiratory disease History of drug abuse Human immunodeficiency virus (HIV) seropositivity Infertile Kidney disease Malignant neoplasm of lung Parkinson's disease Psychotic disorder Seizure disorder Tuberculosis Allergies and Home Medications Allergies Coded Allergies: rivaroxaban (Unverified Allergy, Mild, N/V, 10/11/18) Home Medications Aspirin 81 Mg Tablet.dr, 81 MG PO DAILY, (Reported) Atorvastatin Calcium 20 Mg Tablet, 20 MG PO HS, (Reported) Clopidogrel Bisulfate 75 Mg Tablet, 75 MG PO DAILY Prescribed by: LUIS CARLOS MASON on 07/08/20 1057 Lisinopril 2.5 Mg Tablet, 2.5 MG PO DAILY, (Reported) Metoprolol Tartrate 25 Mg Tablet, 25 MG PO DAILY, (Reported) Multivitamin 1 Each Tablet, 1 EACH PO DAILY, (Reported) [place] 3 Polyunsat Fatty Acids 1,000 Mg Cap, 1,000 MG PO DAILY, (Reported) Patient Home Medication List Home Medication List Reviewed: Yes Physical Exam-Cardiology Physical Exam Vital Signs/I&O 10/18/20 10/18/20 10/18/20 10/18/20 11:50 11:50 12:05 12:07 Temp 36.3 36.3 Pulse 78 78 Resp 18 18 B/P (MAP) 142/72 (95) 142/72 (95) Pulse Ox 94 94 94 O2 Delivery Nasal Cannula Nasal Cannula Room Air Nasal Cannula O2 Flow Rate 2.0 2.0 2.00 10/18/20 10/18/20 10/18/20 10/18/20 14:50 15:10 15:30 15:54 Temp 36.2 Pulse 60 63 67 Resp 18 16 B/P (MAP) 128/69 (95) 165/83 (110) Pulse Ox 100 98 O2 Delivery Nasal Cannula Nasal Cannula Nasal Cannula O2 Flow Rate 2.00 2.00 2.00 Capillary Refill : Less Than 3 Seconds Constitutional: AAO x 3, well-developed, well-nourished HEENT: EOMI, hearing is well preserved; No xanthelasmas are seen Neck: carotid pulses are 2 + bilaterally, with good upstrokes Respiratory: No accessory muscle use; other (good, bilateral air entry) Cardiovascular: regular rate-rhythm, S1 and S2, systolic murmur (soft KARINA at card base) Gastrointestinal: No tender; soft; No guarding, No rebound; audible bowel sounds Extremities: No clubbing, No cyanosis, No significant edema Neurologic/Psychiatric: oriented x 3, other (moves all limbs equally) Skin: No rash on exposed areas, No ulcerations on exposed areas Data Review Labs Laboratory Tests 10/18/20 12:10: White Blood Count 4.8, Red Blood Count 4.68, Hemoglobin 11.2L, Hematocrit 37L, Mean Corpuscular Volume 78L, Mean Corpuscular Hemoglobin 24L, Mean Corpuscular Hemoglobin Concent 31L, Red Cell Distribution Width 17.6H, Platelet Count 197, Mean Platelet Volume 9.6, Immature Granulocyte % (Auto) 0, Neutrophils (%) (Auto) 58, Lymphocytes (%) (Auto) 24, Monocytes (%) (Auto) 15H, Eosinophils (%) (Auto) 2, Basophils (%) (Auto) 1, Neutrophils # (Auto) 2.8, Lymphocytes # (Auto) 1.2, Monocytes # (Auto) 0.7, Eosinophils # (Auto) 0.1, Basophils # (Auto) 0.0, Immature Granulocyte # (Auto) 0.0, Prothrombin Time 14.8H, INR Comment 1.1, Activated Partial Thromboplast Time 28, Sodium Level 135, Potassium Level 4.4, Chloride Level 105, Carbon Dioxide Level 20L, Anion Gap 10, Blood Urea Nitrogen 22H, Creatinine 1.59H, Estimat Glomerular Filtration Rate 43, BUN/Creatinine Ratio 14, Glucose Level 97, Calcium Level 9.2, Corrected Calcium 9.2, Magnesium Level 1.9, Total Bilirubin 0.6, Aspartate Amino Transf (AST/SGOT) 18, Alanine Aminotransferase (ALT/SGPT) 13, Alkaline Phosphatase 81, Myoglobin 258.7H, Troponin I 0.069H, B-Type Natriuretic Peptide 93.7, Total Protein 6.9, Albumin 4.0 Laboratory Tests 10/18/20 12:10 A/P-Cardiology Assessment/Admission Diagnosis Small NSTEMI, likely due to disease in a small caliber left circumflex that is not amenable to intervention (see below under CAD) CAD -H/O CABG 5 vessel at [facility] by Dr. Enrico Fraser in July 2016 - MPI of : This study is indicative of inferolateral and apical ischemia, apical infarction. Localized apical akinesis and inferolateral hypokinesis. Ejection fraction of 37%. Moderate cardiomegaly - Most recent cardiac cath of 07-08-2020: [place] coronary artery disease consisting of severe mid vessel disease of the left anterior descending with patent left internal mammary artery graft to distal left anterior descending, moderately severe ostial and mid vessel disease of a small caliber left circumflex, severe ostial and mid vessel and distal vessel disease of a dominant right coronary with a patent aortocoronary graft to the posterior descending branch of the right coronary without significant disease. Occluded aortocoronary grafts to diagonal and obtuse marginals. ICM, chronic HFrEF, and arrhythmia - H/O PPM implanted at time of CABG in 2016 d/t 3rd degree block - RV pacemaker lead extraction. Single Chamber ICD implantation on 11/09/[address] Santos. Unsuccessful CS lead implantation. - Echo 06-17-20 showed LVEF 30-35%. Hypokinesis of the anterior and apical myocardium. Grade 1 diastolic dysfunction. LA mod dilated. Mild to mod TR. Mild AoV regurg. PASP 50-55mmHg History of DVT and PE - completed Eliquis tx HLD CKD III Chronic, bilateral leg swelling, more on the L, likely related to venous insuff Mild bilat carotid arterial dz per u/s of 06-27-20 Discussion and Recomendations * Recent heart cath films were again reviewed today. A small caliber left circumflex artery is unprotected by grafts, and is the likely cause of symptoms, but does not appear amenable to PCI * Continue conservative therapy * Adjust meds as needed and as tolerated * Monitor labs * I discussed his CV issues with him in detail and answered questions Clinical Quality Measures AMI/AHF: ASA po Prior to arrival: LUIS CARLOS Harrison MD FACP FAC CCDS Oct 18, 2020 17:37
[2020-10-18] MEDS ORDERED: amLODIPine 5 MG (NORVASC) TAB PO ONE (17:45)
[2020-10-18] MEDS ORDERED: meTOproloL SUCCINATE 50 MG (TOPROL XL) TAB PO SCH (17:45)
[2020-10-18] MEDS ORDERED: amLODIPine 5 MG (NORVASC) TAB ONE (17:57)
[2020-10-18 19:38] VITALS: BP 144/82
[2020-10-18 23:32] VITALS: BP 144/82
[2020-10-19] MEDS: ENOXAPARIN 100 MG/1 ML (LOVENOX) SYR SC SCH ×2 (02:09→13:40)
[2020-10-19 04:09] VITALS: BP 118/60
[2020-10-19 05:29] LABS: BASOPHILS # (AUTO) 0.1 10^3/uL (0.0-0.1); BASOPHILS % (AUTO) 1 % (0-10); EOSINOPHILS # (AUTO) 0.3 10^3/uL (0.0-0.3); EOSINOPHILS % (AUTO) 5 % (0-10); HEMATOCRIT 37 % (40-54); HEMOGLOBIN 11.1 g/dL (13.3-17.7); LYMPHOCYTES # (AUTO) 2.1 10^3/uL (1.0-4.0); LYMPHOCYTES % (AUTO) 35 % (12-44); MEAN CORPUSCULAR HEMOGLOBIN 24 pg (25-34); MEAN CORPUSCULAR HGB CONC 30 g/dL (32-36); MEAN CORPUSCULAR VOLUME 79 fL (80-99); MEAN PLATELET VOLUME 10.2 fL (9.0-12.2); MONOCYTES # (AUTO) 0.8 10^3/uL (0.0-1.0); MONOCYTES % (AUTO) 13 % (0-12); NEUTROPHILS # (AUTO) 2.8 10^3/uL (1.8-7.8); NEUTROPHILS % (AUTO) 46 % (42-75); PLATELET COUNT 194 10^3/uL (130-400); WHITE BLOOD COUNT 6.1 10^3/uL (4.3-11.0)
[2020-10-19 05:38] LABS: POTASSIUM 4.4 MMOL/L (3.6-5.0)
[2020-10-19 05:39] LABS: CALCIUM 9.1 MG/DL (8.5-10.1)
[2020-10-19 05:44] LABS: CREATININE SERUM 1.15 MG/DL (0.60-1.30)
[2020-10-19 05:46] LABS: MAGNESIUM 1.9 MG/DL (1.6-2.4)
[2020-10-19] MEDS: ASPIRIN 81 MG CHEW (CHILDREN'S ASA) PO SCH (07:48)
[2020-10-19] MEDS: CLOPIDOGREL 75 MG (PLAVIX) TABLET PO SCH (07:48)
[2020-10-19] MEDS: meTOproloL SUCCINATE 50 MG (TOPROL XL) TAB PO SCH (07:48)
[2020-10-19 07:56] VITALS: BP 103/68
[2020-10-19] MEDS ORDERED: amLODIPine 5 MG (NORVASC) TAB PO SCH (09:00)
[2020-10-19 11:32] VITALS: BP 111/68
[2020-10-19 15:30] VITALS: BP 142/86
--- NOTE | 2020-10-19 15:52 | Progress Note - Cardiology ---
Cardiology SOAP Progress Note Subjective: No cp or palp or syncope or shortness of breath No n/v/d Some dizziness with posture changes Objective: I&O/Vital Signs 10/19/20 10/19/20 10/19/20 10/19/20 04:09 07:00 07:56 08:58 Temp 36.4 36.3 Pulse 62 68 64 Resp 16 16 B/P (MAP) 118/60 (79) 103/68 (80) Pulse Ox 100 99 O2 Delivery Nasal Cannula Nasal Cannula Nasal Cannula O2 Flow Rate 2.00 2.00 2.00 10/19/20 10/19/20 11:32 13:00 Temp 36.3 Pulse 58 60 Resp 18 B/P (MAP) 111/68 (82) Pulse Ox 100 O2 Delivery Room Air 10/19/20 00:00 Intake Total 1550 ml Output Total 1400 ml Balance 150 ml Weight (Pounds): 210 Weight (Ounces): 7.0 Weight (Calculated Kilograms): 95.884738 Constitutional: AAO x 3, well-developed, well-nourished Respiratory: No accessory muscle use; other (good, bilateral air entry) Cardiovascular: regular rate-rhythm, S1 and S2, systolic murmur (soft KARINA at card base) Gastrointestional: No tender; soft; No guarding, No rebound; audible bowel sounds Extremities: No clubbing, No cyanosis, No significant edema Neurologic/Psychiatric: oriented x 3, other (moves all limbs equally) Skin: No rash on exposed areas, No ulcerations on exposed areas Results/Procedures: Labs Laboratory Tests 10/18/20 18:06: Troponin I 0.074H 10/19/20 04:49: White Blood Count 6.1, Red Blood Count 4.60, Hemoglobin 11.1L, Hematocrit 37L, Mean Corpuscular Volume 79L, Mean Corpuscular Hemoglobin 24L, Mean Corpuscular Hemoglobin Concent 30L, Red Cell Distribution Width 17.7H, Platelet Count 194, Mean Platelet Volume 10.2, Immature Granulocyte % (Auto) 0, Neutrophils (%) (Auto) 46, Lymphocytes (%) (Auto) 35, Monocytes (%) (Auto) 13H, Eosinophils (%) (Auto) 5, Basophils (%) (Auto) 1, Neutrophils # (Auto) 2.8, Lymphocytes # (Auto) 2.1, Monocytes # (Auto) 0.8, Eosinophils # (Auto) 0.3, Basophils # (Auto) 0.1, Immature Granulocyte # (Auto) 0.0, Sodium Level 134L, Potassium Level 4.4, Chloride Level 106, Carbon Dioxide Level 21, Anion Gap 7, Blood Urea Nitrogen 22H, Creatinine 1.15, Estimat Glomerular Filtration Rate 62, BUN/Creatinine Ratio 19, Glucose Level 84, Calcium Level 9.1, Magnesium Level 1.9, Triglycerides Level 70, Cholesterol Level 166, LDL Cholesterol Direct 113, VLDL Cholesterol 14, HDL Cholesterol 49 A/P: Assessment: Small NSTEMI, likely due to disease in a small caliber left circumflex that is not amenable to intervention (see below under CAD) CAD -H/O CABG 5 vessel at [facility] by Dr. Enrico Fraser in July 2016 - MPI of : This study is indicative of inferolateral and apical ischemia, apical infarction. Localized apical akinesis and inferolateral hypokinesis. Ejection fraction of 37%. Moderate cardiomegaly - Most recent cardiac cath of 07-08-2020: [place] coronary artery disease consisting of severe mid vessel disease of the left anterior descending with patent left internal mammary artery graft to distal left anterior descending, moderately severe ostial and mid vessel disease of a small caliber left circumflex, severe ostial and mid vessel and distal vessel disease of a dominant right coronary with a patent aortocoronary graft to the posterior descending branch of the right coronary without significant disease. Occluded aortocoronary grafts to diagonal and obtuse marginals. ICM, chronic HFrEF, and arrhythmia - H/O PPM implanted at time of CABG in 2016 d/t 3rd degree block - RV pacemaker lead extraction. Single Chamber ICD implantation on 11/09/[address] Santos. Unsuccessful CS lead implantation. - Echo 06-17-20 showed LVEF 30-35%. Hypokinesis of the anterior and apical myocardium. Grade 1 diastolic dysfunction. LA mod dilated. Mild to mod TR. Mild AoV regurg. PASP 50-55mmHg History of DVT and PE - completed Eliquis tx HLD CKD III Chronic, bilateral leg swelling, more on the L, likely related to venous insuff Mild bilat carotid arterial dz per u/s of 06-27-20 Chronic, indwelling, urinary catheter, but patient is unaware of the urologic diagnosis, followed by pcp Plan: * Continue conservative therapy * Reduce amlodipine because of postural dizziness * Advised to increase ambulation * Monitor labs * I discussed his CV issues with him in detail and answered questions Clinical Quality Measures AMI/AHF: ASA po Prior to arrival: LUIS CARLOS Harrison MD FACP [facility] CCDS Oct 19, 2020 15:52
--- NOTE | 2020-10-19 17:01 | History & Physical-Hospitalist ---
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 He waited a while and the pain did not resolve so he presented to the emergency room there for reports he had no evidence for isch emic change on ECG but did have mild elevation in troponin level. He had a recent cardiac catheterization per Dr. Longoria revealing small vessel disease nothing that was amenable to catheter-based therapy. Specifically had a high- grade distal circumflex lesion which in discussion with Dr. Corrigan was felt to be a most likely culprit lesion. He is being admitted for further treatment and conservative management of non-ST elevation NC. Date Seen 10/19/20 Time Seen by a Provider: 10:15 Attending Physician Jd Slater MD [facility] Referring Physician Date of Admission Oct 18, 2020 at 13:36 Home Medications & Allergies Home Medications Reviewed patient Home Medication Reconciliation performed by pharmacy medication reconciliations geophysical data technician and/or nursing. Patients Allergies have been reviewed. Allergies Allergies Coded Allergies rivaroxaban (Unverified Allergy, Mild, N/V, 10/11/18) Past Qwyublq-Ulgszm-Vzlvta Hx Patient Social History Tobacco Use?: No Smoking Status: Never a Smoker Smokeless Tobacco Frequency: Never a User Use of E-Cig and/or Vaping dev: No Substance use?: No Alcohol Use?: Yes Alcohol type: Beer Alcohol Frequency: Couple times a week Additional Alcohol Comments: "2-3 BEERS PER WEEK AT MOST" Pt feels they are or have been: No Immunizations Up To Date Date of Influenza Vaccine: Jan 25, 2019 First/Initial COVID19 Vaccinat: APRIL Second COVID19 Vaccination Neto: MAY Tetanus Booster (TDap): Unknown Hepatitis A: No Hepatitis B: No PED Vaccines UTD: Yes Date of Pneumonia Vaccine: Sep 16, 2017 Seasonal Allergies Seasonal Allergies: No Current Status Advance Directives: No Advance Directive Location: WOULD LIKE SS TO CONSULT ABOUT A/D Communicates: Verbally Primary Language: Italian Preferred Spoken Language: Italian Is interpretation needed?: No Implanted or Applied Medical D: Pacemaker Past Medical History Surgeries: Cardiac, CABG, Eye Surgery, Open Heart Surgery, Pacemaker Pulmonary Embolism Currently Using CPAP: No Currently Using BIPAP: No Atrial Fibrillation, Cardiomyopathy, Coronary Artery Disease, Deep Vein Thrombosis, Heart Murmur, Irregular Heartbeat Sexually Transmitted Disease: No HIV/AIDS: No Benign Prostatic Hyperpl, Kidney Infection, Bladder Infection, Neurogenic Bladder, UTI-Chronic Gastroesophageal Reflux, Chronic Constipation Fractures Cataract Loss of Vision: Denies Hearing Impairment: Denies Blood Disorders: No Adverse Reaction/Blood Tranf: No (HAS HAD BLOOD WITH NO REACTION) PMHx: PE: Unable to tolerate blood thinners Chronic systolic CHF EF 40% echo 11/2016 CAD s/p quintuple bypass 07/2016 (Dr Fraser [facility] in [place]) 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 HTN Orthostatic hypotension PSurghx: Coronary artery bypass Family Medical History Cancer (LINING OF ABD CAVITY, AT AGE 80) 03 MOTHER Chest pain (FATHER OF [place] AT AGE 83) 03 FATHER Congestive heart failure 03 FATHER Family history: Arthritis 03 MOTHER, Onset:60 years & older Family history: Cardiovascular disease 03 FATHER Heart disease 03 FATHER Hypercholesterolemia 03 FATHER 03 MOTHER Myocardial infarction 03 FATHER Prostate cancer (DIAGNOSED AT 70 OR 71 PER PT) 03 FATHER Stroke 09 SISTER Visual impairment (SISTER WEARS GLASSES ) 09 SISTER No Family History of: Abdominal aortic aneurysm [place]'s disease Alcoholism Aphasia Cancer of colon Cataract Congenital heart disease Cystic fibrosis Dementia Dysphagia Family history: Allergy Family history: Alzheimer's disease Family history: Asthma Family history: Breast disease Family history: Coronary thrombosis Family history: Diabetes mellitus Family history: Gastrointestinal disease Family history: Glaucoma Family history: Hypertension Family history: Osteoporosis Family history: Thyroid disorder Headache Hearing loss Hereditary disease History of - anemia History of - disorder History of - respiratory disease History of drug abuse Human immunodeficiency virus (HIV) seropositivity Infertile Kidney disease Malignant neoplasm of lung Parkinson's disease Psychotic disorder Seizure disorder Tuberculosis Cancer, CAD Over 55 Years Old, CVA Review of Systems Constitutional: see HPI Physical Exam Physical Exam Vital Signs Vital Signs - First Documented 10/18/20 11:50 Temp 36.3 Pulse 78 Resp 18 B/P (MAP) 142/72 (95) Pulse Ox 94 O2 Delivery Nasal Cannula O2 Flow Rate 2.0 Capillary Refill : Less Than 3 Seconds Height, Weight, BMI Height: 5'11.00" Weight: 210lbs. 7.0oz. 95.143364xw; 30.95 BMI Method:Stated General Appearance: No Apparent Distress Neck: Full Range of Motion, Normal Inspection, Non Tender Respiratory: Chest Non Tender, Lungs Clear, Normal Breath Sounds, No Accessory Muscle Use, No Respiratory Distress Cardiovascular: Regular Rate, Rhythm, No Edema, No Gallop, No JVD, No Murmur, Normal Peripheral Pulses Gastrointestinal: Normal Bowel Sounds, No Organomegaly, No Pulsatile Mass, Non Tender, Soft Extremity: Normal Inspection, Normal Range of Motion, Non Tender, No Calf Tenderness, No Pedal Edema Neurologic/Psychiatric: Alert, Oriented x3 Results Results/Procedures Labs Laboratory Tests 10/18/20 12:10 10/19/20 04:49 Patient resulted labs reviewed. Assessment/Plan Admission Diagnosis . Non-ST segment elevation NC per Dr. Longoria for which conservative medical management is most appropriate see his notation for recent cardiac cathet erization reports and further cardiac history. Currently the patient is pain- free but having some lightheadedness when he gets up so amlodipine is being decreased continuing antiplatelet therapy and antihypertensive therapy. 2. History of neurogenic bladder requiring chronic Sandhu catheterization for which the patient is tolerated well continue Sandhu to dependent drainage. Admission Status: Inpatient Order (span 2 midnights) Reason for Inpatient Admission: See admission diagnosis Clinical Quality Measures AMI/AHF: ASA po Prior to arrival: JD Mandujano MD Oct 19, 2020 17:00
[2020-10-19 19:54] VITALS: BP 128/79
[2020-10-19 23:48] VITALS: BP 125/65
[2020-10-20] VITALS (7 sets, daily range): BP systolic 114–148; BP diastolic 63–79
[2020-10-20] MEDS: ENOXAPARIN 100 MG/1 ML (LOVENOX) SYR SC SCH ×2 (02:56→16:32)
[2020-10-20] MEDS ORDERED: MULT-1136 PO (09:02)
[2020-10-20] MEDS ORDERED: OMEG-160 PO (09:02)
[2020-10-20] MEDS ORDERED: ASPI-1238 PO (09:02)
[2020-10-20] MEDS: NITROGLYCERIN 0.4 MG SL TABS BTL 25'S SL PRN (09:21)
[2020-10-20] MEDS: CLOPIDOGREL 75 MG (PLAVIX) TABLET PO SCH (09:22)
[2020-10-20] MEDS: ASPIRIN 81 MG CHEW (CHILDREN'S ASA) PO SCH (09:22)
[2020-10-20] MEDS: amLODIPine 2.5MG (NORVASC) TAB PO SCH (09:22)
[2020-10-20] MEDS: meTOproloL SUCCINATE 50 MG (TOPROL XL) TAB PO SCH (09:22)
--- NOTE | 2020-10-20 09:53 | Progress Note - Cardiology ---
Cardiology SOAP Progress Note Subjective: Feeling of profound generalized malaise this am. This intermittently happens at home, too, he says No cp or palp or syncope or shortness of breath No n/v/d Objective: I&O/Vital Signs 10/19/20 10/20/20 10/20/20 10/20/20 23:48 01:00 04:17 06:26 Temp 36.4 36.8 Pulse 61 60 65 60 Resp 16 18 B/P (MAP) 125/65 (85) 124/75 (91) Pulse Ox 97 98 O2 Delivery Room Air Room Air 10/20/20 08:45 Temp 36.0 Pulse 62 Resp 16 B/P (MAP) 133/71 (91) Pulse Ox 96 O2 Delivery Room Air 10/20/20 00:00 Intake Total 1630 ml Output Total 1325 ml Balance 305 ml Weight (Pounds): 210 Weight (Ounces): 7.0 Weight (Calculated Kilograms): 95.557753 Constitutional: AAO x 3, well-developed, well-nourished Respiratory: No accessory muscle use; other (good, bilateral air entry) Cardiovascular: regular rate-rhythm, S1 and S2, systolic murmur (soft KARINA at card base) Gastrointestional: No tender; soft; No guarding, No rebound; audible bowel sounds Extremities: No clubbing, No cyanosis, No significant edema Neurologic/Psychiatric: oriented x 3, other (moves all limbs equally) Skin: No rash on exposed areas, No ulcerations on exposed areas Results/Procedures: Labs Laboratory Tests 10/18/20 12:10 10/19/20 04:49 A/P: Assessment: Small NSTEMI, likely due to disease in a small caliber left circumflex that is not amenable to intervention (see below under CAD) CAD -H/O CABG 5 vessel at [facility] by Dr. Enrico Fraser in July 2016 - MPI of : This study is indicative of inferolateral and apical ischemia, apical infarction. Localized apical akinesis and inferolateral hypokinesis. Ejection fraction of 37%. Moderate cardiomegaly - Most recent cardiac cath of 07-08-2020: [place] coronary artery disease consisting of severe mid vessel disease of the left anterior descending with patent left internal mammary artery graft to distal left anterior descending, moderately severe ostial and mid vessel disease of a small caliber left c ircumflex, severe ostial and mid vessel and distal vessel disease of a dominant right coronary with a patent aortocoronary graft to the posterior descending branch of the right coronary without significant disease. Occluded aortocoronary grafts to diagonal and obtuse marginals. ICM, chronic HFrEF, and arrhythmia - H/O PPM implanted at time of CABG in 2017 d/t 3rd degree block - RV pacemaker lead extraction. Single Chamber ICD implantation on 11/09/[address] Santos. Unsuccessful CS lead implantation. - Echo 06-17-20 showed LVEF 30-35%. Hypokinesis of the anterior and apical myocardium. Grade 1 diastolic dysfunction. LA mod dilated. Mild to mod TR. Mild AoV regurg. PASP 50-55mmHg History of DVT and PE - completed Eliquis tx HLD CKD III Chronic, bilateral leg swelling, more on the L, likely related to venous insuff Mild bilat carotid arterial dz per u/s of 06-27-20 Chronic, indwelling, urinary catheter, but patient is unaware of the urologic diagnosis, followed by pcp Intermittent malaise of undetermined etiology Plan: * No recurrenc of angina. Continue conservative therapy * Advised to increase ambulation * May be discharged once feeling of tiredness/malaise resolves * Outpt f/u advised Clinical Quality Measures AMI/AHF: ASA po Prior to arrival: LUIS CARLOS Harrison MD FACP [facility] CCDS Oct 20, 2020 09:53
--- NOTE | 2020-10-20 10:46 | Diagnostic Imaging Report ---
EXAMINATION: Chest, 2 views. HISTORY: Lung findings, followup. COMPARISON: Chest radiograph 10/18/2020. FINDINGS: Stable enlargement of the cardiac silhouette with surgical changes from CABG and left-sided pacemaker placement. Stable findings suggestive of a hiatal hernia. There is mild improved aeration of the left lower lung. Minimal atelectasis without pleural effusion or pneumothorax. Degenerative changes of the thoracic spine. Osseous structures are otherwise intact. IMPRESSION: Improved aeration of the left lung base with minimal left basilar atelectasis or consolidation. Dictated by: Dictated on workstation # [id number]
--- NOTE | 2020-10-20 12:13 | Progress Note - Hospitalist ---
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 He waited a while and the pain did not resolve so he presented to the emergency room there for reports he had no evidence for ischemic change on ECG but did have mild elevation in troponin level. He had a recent cardiac catheterization per Dr. Longoria revealing small vessel disease nothing that was amenable to catheter-based therapy. Specifically had a high-g rade distal circumflex lesion which in discussion with Dr. Corrigan was felt to be a most likely culprit lesion. He is being admitted for further treatment and conservative management of non-ST elevation AR. Subjective/Events-last exam Patient sitting up in chair. He is complaining of mild midsternal chest pain that is nonradiating and nonreproducible upon palpation. He states is similar to the chest pain he had in the ED and at the restaurant prior to transfer here. He rates that pain at a 3/10. Offered to ask the nurse if he wanted me to have her bring nitro and he declined at that time. Reports no other complaints. Tolerating po intake well. Review of Systems General: No Chills, No Night Sweats HEENT: No Head Aches, No Visual Changes Pulmonary: No Dyspnea, No Cough Cardiovascular: Chest Pain, Edema (chronic bilateral lower extremities); No: Palpitations, Orthopnea Gastrointestinal: No: Nausea, Vomiting, Abdominal Pain, Diarrhea, Constipation Genitourinary: No Dysuria, No Frequency; Retention (chronic solo due to neurogenic bladder) Musculoskeletal: No: neck pain, back pain Neurological: No: Weakness, Numbness Objective Exam Vital Signs Vital Signs Date Time Temp Pulse Resp B/P (MAP) Pulse Ox O2 Delivery O2 Flow Rate FiO2 10/20/20 11:35 36.0 59 18 130/77 (94) 95 Room Air 10/19/20 20:10 2.00 Capillary Refill : Less Than 3 Seconds General Appearance: No Apparent Distress, WD/WN HEENT: PERRL/EOMI, Pharynx Normal, Moist Mucous Membranes Neck: Full Range of Motion, Normal Inspection, Non Tender, Supple Respiratory: Lungs Clear, Normal Breath Sounds, No Accessory Muscle Use, No Respiratory Distress; No Crackles, No Rhonci, No Stridor, No Wheezing Cardiovascular: Regular Rate, Rhythm, Normal Peripheral Pulses, Other (Bilateral 2+ pitting edema to midcalves) Gastrointestinal: Normal Bowel Sounds, Non Tender, Soft; No Distended, No Guarding, No Rebound, No Tenderness Rectal: Deferred Back: Normal Inspection, No CVA Tenderness, No Vertebral Tenderness Extremity: Normal Capillary Refill, Non Tender, No Calf Tenderness, Pedal Edema, Swelling (bilateral lower extremities) Neurologic/Psychiatric: Alert, Oriented x3, No Motor/Sensory Deficits, Normal Mood/Affect Skin: Warm/Dry, Other (bilat lower extrem discoloration) Lymphatic: No Adenopathy Results/Procedures Lab Patient resulted labs reviewed. Assessment/Plan Assessment and Plan Assess & Plan/Chief Complaint Chest Pain -prn nitroglycerin SL -continue to monitor NSTEMI -Cardiology following -likely secondary to small caliber vessel not amendable to intervention -continue current medical management CAD -continue conservative management -plavix and ASA Ischemic Cardiomyopathy Systolic HF -Echo 05/2020 showed EF 30-35% Anticoagulated -lovenox Valvular heart disease H/o 5 vessel CABG 2017 ICD placement 2018 Permanent pacemaker placed 2016 secondary to 3rd degree heart block H/o PE CKD stage 3 Neurogenic bladder -requires chronic solo catheter Chronic UTI Clinical Quality Measures AMI/AHF: ASA po Prior to arrival: No CINTHYA HOPPER DO 10/21/20 0503: Subjective Subjective/Events-last exam Pt having multiple issues Feels badly today Chest X-ray repeated no significant infiltrates so will initiate IS Has had a hx of multiple pulmonary embolisms and AF maintained on anticoagulation Cardiology consulted, appreciated Review of Systems General: Fatigue Objective Exam General Appearance: No Apparent Distress, WD/WN, Chronically ill Respiratory: No Accessory Muscle Use, No Respiratory Distress, Decreased Breath Sounds Cardiovascular: Regular Rate, Rhythm Neurologic/Psychiatric: Alert, Oriented x3, Depressed Affect Assessment/Plan Assessment and Plan Assess & Plan/Chief Complaint Check chest x-ray Incentive spirometer Monitor closely Supervisory-Addendum Brief Verification & Attestation Participated in pt care: history, MDM, physical Personally performed: exam, history, MDM, supervision of care Care discussed with: Medical Student Procedures: n/a Results interpretation: Verified all documentation Verification and Attestation of Medical Student E/M Service A medical student performed and documented this service in my presence. I reviewed and verified all information documented by the medical student and made modifications to such information, when appropriate. I personally performed the physical exam and medical decision making. Cinthya Hopper, Oct 21, 2020,05:02 REGGIE CROW MED STUDENT Oct 20, 2020 12:13 CINTHYA HOPPER DO Oct 21, 2020 05:03
[2020-10-20] MEDS: ACETAMINOPHEN 325 MG TABLET PO PRN ×2 (13:02→20:14)
[2020-10-21 00:33] VITALS: BP 130/66
[2020-10-21] MEDS: ENOXAPARIN 100 MG/1 ML (LOVENOX) SYR SC SCH (01:19)
[2020-10-21 04:23] VITALS: BP 121/71
[2020-10-21 06:12] LABS: BASOPHILS % (AUTO) 1 % (0-10); EOSINOPHILS # (AUTO) 0.2 10^3/uL (0.0-0.3); EOSINOPHILS % (AUTO) 4 % (0-10); HEMATOCRIT 39 % (40-54); HEMOGLOBIN 12.1 g/dL (13.3-17.7); LYMPHOCYTES % (AUTO) 39 % (12-44); MEAN CORPUSCULAR HEMOGLOBIN 24 pg (25-34); MEAN CORPUSCULAR HGB CONC 31 g/dL (32-36); MEAN CORPUSCULAR VOLUME 77 fL (80-99); MEAN PLATELET VOLUME 9.8 fL (9.0-12.2); MONOCYTES # (AUTO) 0.5 10^3/uL (0.0-1.0); MONOCYTES % (AUTO) 9 % (0-12); NEUTROPHILS # (AUTO) 2.4 10^3/uL (1.8-7.8); NEUTROPHILS % (AUTO) 47 % (42-75); PLATELET COUNT 236 10^3/uL (130-400)
[2020-10-21 06:26] LABS: ALBUMIN 3.8 GM/DL (3.2-4.5); POTASSIUM 4.5 MMOL/L (3.6-5.0)
[2020-10-21 06:27] LABS: CALCIUM 9.4 MG/DL (8.5-10.1)
[2020-10-21 06:28] LABS: TOTAL PROTEIN 6.7 GM/DL (6.4-8.2)
[2020-10-21 06:30] LABS: BILIRUBIN,TOTAL 0.5 MG/DL (0.1-1.0)
[2020-10-21 06:32] LABS: CREATININE SERUM 1.04 MG/DL (0.60-1.30)
[2020-10-21 08:00] VITALS: BP 111/75
[2020-10-21] MEDS: CLOPIDOGREL 75 MG (PLAVIX) TABLET PO SCH (09:03)
[2020-10-21] MEDS: ASPIRIN 81 MG CHEW (CHILDREN'S ASA) PO SCH (09:03)
[2020-10-21] MEDS: meTOproloL SUCCINATE 50 MG (TOPROL XL) TAB PO SCH (09:04)
[2020-10-21] MEDS: amLODIPine 2.5MG (NORVASC) TAB PO SCH (09:04)
--- NOTE | 2020-10-21 10:20 | Progress Note ---
REGGIE CROW MED STUDENT 10/21/20 1020: Progress Note Hospital Course: Alex Park is a 74 year old white male who presented to the ED on September, with complaints of chest pain and SOB. 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 He called EMS and was subsequently brought to the ED. The chest pain had resolved by the time he arrived. In the ED he again developed chest pain. He received morphine and SL nitroglycerin in the ED. His initial troponin was elevated at 0.069 and repeat was 0.074. Cardiology was consulted and he was ultimately diagnosed with a NSTEMI. This was thought to be due to disease in a small caliber left circumflex artery that was not amendable to intervention based on his most recent cardiac cath in June of 2020. Cardiology recommended conservative management and followed throughout his admission. PMH is significant for CAD, Ischemic cardiomyopathy, valvular heart disease, atrial fibrillation, systolic HF, 5 vessel CABG, PPM, ICD placement, CKD stage 3, neurogenic bladder with chronic indwelling solo catheter, chronic UTI, DVT, Multiple PE's, and HLP. Patient has remained hemodynamically stable throughout his hospital course. He has had several episodes of recurrent chest pain while admitted and received SL nitroglycerin with relief of symptoms. Cardiology had adjusted his norvasc to decreased the dizziness he was experiencing two days ago. Since adjustment he states he's been feeling well. He is tolerating po intake well. He has been up ambulating in the halls this morning w/o assistance. He reports feeling back to baseline and ready for discharge home. Plan is to discharge him to home today with recommendations to followup on an outpatient basis with his PCP and cardiology over the next several weeks. CINTHYA HOPPER DO 10/22/20 0517: Supervisory-Addendum Brief Verification & Attestation Participated in pt care: history, MDM, physical Personally performed: exam, history, MDM, supervision of care Care discussed with: Medical Student Procedures: n/a Results interpretation: Verified all documentation Verification and Attestation of Medical Student E/M Service A medical student performed and documented this service in my presence. I reviewed and verified all information documented by the medical student and made modifications to such information, when appropriate. I personally performed the physical exam and medical decision making. Cinthya Hopper, Oct 22, 2020,05:16 REGGIE CROW MED STUDENT Oct 21, 2020 10:20 CINTHYA HOPPER DO Oct 22, 2020 05:17
[2020-10-21] MEDS ORDERED: APIX5TAB PO (10:40)
[2020-10-21] MEDS ORDERED: ATOR40TA PO (10:40)
[2020-10-21] MEDS ORDERED: CLOP75TA28 PO (10:40)
[2020-10-21] MEDS ORDERED: METO50TA7 PO (10:40)
--- NOTE | 2020-10-21 11:05 | Progress Note - Cardiology ---
Cardiology SOAP Progress Note Subjective: Urinary catheter in place No c/o CP or SOB States he feels well this morning Objective: I&O/Vital Signs 10/21/20 10/21/20 10/21/20 10/21/20 00:33 01:00 04:23 06:25 Temp 36.5 36.5 Pulse 56 60 61 60 Resp 17 19 B/P (MAP) 130/66 (87) 121/71 (88) Pulse Ox 98 97 O2 Delivery Room Air Room Air 10/21/20 10/21/20 10/21/20 08:00 08:03 09:00 Temp 36.2 Pulse 60 Resp 20 B/P (MAP) 111/75 (87) Pulse Ox 98 O2 Delivery Room Air Nasal Cannula Room Air O2 Flow Rate 2.00 10/21/20 00:00 Intake Total 1360 ml Output Total 850 ml Balance 510 ml Weight (Pounds): 210 Weight (Ounces): 7.0 Weight (Calculated Kilograms): 95.166972 Constitutional: AAO x 3, well-developed, well-nourished Respiratory: No accessory muscle use; other (good, bilateral air entry) Cardiovascular: regular rate-rhythm, S1 and S2, systolic murmur (soft KARINA at card base) Gastrointestional: No tender; soft; No guarding, No rebound; audible bowel sounds Extremities: No clubbing, No cyanosis, No significant edema Neurologic/Psychiatric: oriented x 3, other (moves all limbs equally) Skin: No rash on exposed areas, No ulcerations on exposed areas Results/Procedures: Labs Laboratory Tests 10/21/20 05:27: White Blood Count 5.0, Red Blood Count 5.09, Hemoglobin 12.1L, Hematocrit 39L, Mean Corpuscular Volume 77L, Mean Corpuscular Hemoglobin 24L, Mean Corpuscular Hemoglobin Concent 31L, Red Cell Distribution Width 17.4H, Platelet Count 236, Mean Platelet Volume 9.8, Immature Granulocyte % (Auto) 0, Neutrophils (%) (Auto) 47, Lymphocytes (%) (Auto) 39, Monocytes (%) (Auto) 9, Eosinophils (%) (Auto) 4, Basophils (%) (Auto) 1, Neutrophils # (Auto) 2.4, Lymphocytes # (Auto) 2.0, Monocytes # (Auto) 0.5, Eosinophils # (Auto) 0.2, Basophils # (Auto) 0.0, Immature Granulocyte # (Auto) 0.0, Sodium Level 134L, Potassium Level 4.5, Chloride Level 105, Carbon Dioxide Level 23, Anion Gap 6, Blood Urea Nitrogen 22H, Creatinine 1.04, Estimat Glomerular Filtration Rate 69, BUN/Creatinine Ratio 21, Glucose Level 85, Calcium Level 9.4, Corrected Calcium 9.6, Total Bilirubin 0.5, Aspartate Amino Transf (AST/SGOT) 16, Alanine Aminotransferase (ALT/SGPT) 16, Alkaline Phosphatase 81, Total Protein 6.7, Albumin 3.8 A/P: Assessment: Small NSTEMI, likely due to disease in a small caliber left circumflex that is not amenable to intervention (see below under CAD) CAD -H/O CABG 5 vessel at [facility] by Dr. Enrico Fraser in July 2016 - MPI of : This study is indicative of inferolateral and apical ischemia, apical infarction. Localized apical akinesis and inferolateral hypokinesis. Ejection fraction of 37%. Moderate cardiomegaly - Most recent cardiac cath of 07-08-2020: [place] coronary artery disease consisting of severe mid vessel disease of the left anterior descending with patent left internal mammary artery graft to distal left anterior descending, moderately severe ostial and mid vessel disease of a small caliber left circumflex, severe ostial and mid vessel and distal vessel disease of a dominant right coronary with a patent aortocoronary graft to the posterior descending branch of the right coronary without significant disease. Occluded aortocoronary grafts to diagonal and obtuse marginals. ICM, chronic HFrEF, and arrhythmia - H/O PPM implanted at time of CABG in 2016 d/t 3rd degree block - RV pacemaker lead extraction. Single Chamber ICD implantation on 11/09/[address] Santos. Unsuccessful CS lead implantation. - Echo 06-17-20 showed LVEF 30-35%. Hypokinesis of the anterior and apical myocardium. Grade 1 diastolic dysfunction. LA mod dilated. Mild to mod TR. Mild AoV regurg. PASP 50-55mmHg History of DVT and PE - completed Eliquis tx HLD CKD III Chronic, bilateral leg swelling, more on the L, likely related to venous insuff Mild bilat carotid arterial dz per u/s of 06-27-20 Chronic, indwelling, urinary catheter, but patient is unaware of the urologic diagnosis, followed by pcp Intermittent malaise of undetermined etiology Plan: * No recurrenc of angina. Continue conservative therapy * Increasing ambulation * States he is feeling better today * Outpt f/u advised Clinical Quality Measures AMI/AHF: ASA po Prior to arrival: No OPHELIA HUNTER Oct 21, 2020 11:05
[2020-10-21 11:59] VITALS: BP 107/71
--- NOTE | 2020-10-21 13:26 | Progress Note - Cardiology ---
Cardiology SOAP Progress Note Subjective: No cp or palp or syncope Malaise is much improved today No n/v/d Objective: I&O/Vital Signs 10/21/20 10/21/20 10/21/20 10/21/20 04:23 06:25 08:00 08:03 Temp 36.5 36.2 Pulse 61 60 60 Resp 19 20 B/P (MAP) 121/71 (88) 111/75 (87) Pulse Ox 97 98 O2 Delivery Room Air Room Air Nasal Cannula O2 Flow Rate 2.00 10/21/20 10/21/20 10/21/20 09:00 11:59 12:53 Temp 35.9 Pulse 60 60 Resp 20 B/P (MAP) 107/71 (83) Pulse Ox 97 O2 Delivery Room Air Room Air 10/21/20 00:00 Intake Total 1360 ml Output Total 850 ml Balance 510 ml Weight (Pounds): 210 Weight (Ounces): 7.0 Weight (Calculated Kilograms): 95.851093 Constitutional: AAO x 3, well-developed, well-nourished Respiratory: No accessory muscle use; other (good, bilateral air entry) Cardiovascular: regular rate-rhythm, S1 and S2, systolic murmur (soft KARINA at card base) Gastrointestional: No tender; soft; No guarding, No rebound; audible bowel sounds Extremities: No clubbing, No cyanosis, No significant edema Neurologic/Psychiatric: oriented x 3, other (moves all limbs equally) Skin: No rash on exposed areas, No ulcerations on exposed areas Results/Procedures: Labs Laboratory Tests 10/21/20 05:27: White Blood Count 5.0, Red Blood Count 5.09, Hemoglobin 12.1L, Hematocrit 39L, Mean Corpuscular Volume 77L, Mean Corpuscular Hemoglobin 24L, Mean Corpuscular Hemoglobin Concent 31L, Red Cell Distribution Width 17.4H, Platelet Count 236, Mean Platelet Volume 9.8, Immature Granulocyte % (Auto) 0, Neutrophils (%) (Auto) 47, Lymphocytes (%) (Auto) 39, Monocytes (%) (Auto) 9, Eosinophils (%) (Auto) 4, Basophils (%) (Auto) 1, Neutrophils # (Auto) 2.4, Lymphocytes # (Auto) 2.0, Monocytes # (Auto) 0.5, Eosinophils # (Auto) 0.2, Basophils # (Auto) 0.0, Immature Granulocyte # (Auto) 0.0, Sodium Level 134L, Potassium Level 4.5, Chloride Level 105, Carbon Dioxide Level 23, Anion Gap 6, Blood Urea Nitrogen 22H, Creatinine 1.04, Estimat Glomerular Filtration Rate 69, BUN/Creatinine Ratio 21, Glucose Level 85, Calcium Level 9.4, Corrected Calcium 9.6, Total Bilirubin 0.5, Aspartate Amino Transf (AST/SGOT) 16, Alanine Aminotransferase (ALT/SGPT) 16, Alkaline Phosphatase 81, Total Protein 6.7, Albumin 3.8 Laboratory Tests 10/21/20 05:27 A/P: Assessment: Small NSTEMI, likely due to disease in a small caliber left circumflex that is not amenable to intervention (see below under CAD) CAD -H/O CABG 5 vessel at [facility] by Dr. Enrico Fraser in July 2016 - MPI of : This study is indicative of inferolateral and apical ischemia, apical infarction. Localized apical akinesis and inferolateral hypokinesis. Ejection fraction of 37%. Moderate cardiomegaly - Most recent cardiac cath of 07-08-2020: [place] coronary artery disease consisting of severe mid vessel disease of the left anterior descending with patent left internal mammary artery graft to distal left anterior descending, moderately severe ostial and mid vessel disease of a small caliber left circumflex, severe ostial and mid vessel and distal vessel disease of a dominant right coronary with a patent aortocoronary graft to the posterior descending branch of the right coronary without significant disease. Occluded aortocoronary grafts to diagonal and obtuse marginals. ICM, chronic HFrEF, and arrhythmia - H/O PPM implanted at time of CABG in 2016 d/t 3rd degree block - RV pacemaker lead extraction. Single Chamber ICD implantation on 11/09/[address] Santos. Unsuccessful CS lead implantation. - Echo 06-17-20 showed LVEF 30-35%. Hypokinesis of the anterior and apical myocardium. Grade 1 diastolic dysfunction. LA mod dilated. Mild to mod TR. Mild AoV regurg. PASP 50-55mmHg History of DVT and PE - completed Eliquis tx HLD CKD III Chronic, bilateral leg swelling, more on the L, likely related to venous insuff Mild bilat carotid arterial dz per u/s of 06-27-20 Chronic, indwelling, urinary catheter, but patient is unaware of the urologic diagnosis, followed by pcp Intermittent malaise of undetermined etiology Plan: * Complex management due to multiple comorbidities * No recurrence of angina. Continue conservative therapy * Increasing ambulation * States he is feeling better today. Wishes to go home * Outpt f/u advised Clinical Quality Measures AMI/AHF: ASA po Prior to arrival: LUIS CARLOS Harrison MD FACP FAC CCDS Oct 21, 2020 13:26
[2020-10-21 15:07] VITALS: BP 107/71
== END 2020-10-21 15:15 | disposition home or self-care (01) | DRG 281 ==
LOC: EDUNIT# 11:43 → ER 11:45 → 4TH 13:36
PROVIDERS: ADMIT Internal Medicine; ATTEND Internal Medicine
DX: I21.4 Non-ST elevation (NSTEMI) myocardial infarction (principal); I25.810 Atherosclerosis of coronary artery bypass graft(s) without angina pectoris; I50.22 Chronic systolic (congestive) heart failure; I25.10 Atherosclerotic heart disease of native coronary artery without angina pectoris; I48.91 Unspecified atrial fibrillation; I25.5 Ischemic cardiomyopathy; N18.30 Chronic kidney disease, stage 3 unspecified; I08.2 Rheumatic disorders of both aortic and tricuspid valves; N40.1 Benign prostatic hyperplasia with lower urinary tract symptoms; N31.9 Neuromuscular dysfunction of bladder, unspecified; E78.5 Hyperlipidemia, unspecified; K21.9 Gastro-esophageal reflux disease without esophagitis; K59.09 Other constipation; I87.2 Venous insufficiency (chronic) (peripheral); I65.23 Occlusion and stenosis of bilateral carotid arteries; Z95.1 Presence of aortocoronary bypass graft; Z95.0 Presence of cardiac pacemaker; Z86.711 Personal history of pulmonary embolism; Z79.82 Long term (current) use of aspirin; Z88.8 Allergy status to other drugs, medicaments and biological substances; Z82.49 Family history of ischemic heart disease and other diseases of the circulatory system
CPT/HCPCS: 36415; 71045; 71046; 80048; 80053; 80061; 83735; 83874; 83880; 84484; 85025; 85610; 85730; 93005; 93041; 94664; 96372; 96374

== ENCOUNTER 2021-08-04 13:44 | Emergency (ER) | payer MEDICARE ==
[~2021-08-04] VITALS: Ht 182 cm; Wt 100.3 kg
[~2021-08-04 13:44] MED LIST changes: -AMIO200T6 PO; +AMIO200T65 PO; +CLOP75TA28 PO; -LEVO500T80 PO; +LEVO500T81 PO; -LISI2.5T PO; +LISI2.5T13 PO; +METO50TA7 PO; +MULT-1136 PO; +OMEG-160 PO; +POTA-169 PO; -POTA20TA8 PO
--- NOTE | 2021-08-04 14:17 | ED GU-Male ---
General Chief Complaint: - Reproductive Stated Complaint: HAS CATH - NO URINE OUTPUT Nursing Triage Note: [facility] has had a catheter since 2012, no current urologist however has an appointment soon. [facility] has had issue with urinary retention currently and catheter has pulled out al little bit. Source: patient Exam Limitations: no limitations History of Present Illness Date Seen by Provider: Aug 04, 2021 Time Seen by Provider: 14:05 Initial Comments Patient to the ER by private conveyance chief complaint that he feels that he has displaced his urinary catheter. He is not replaced it for several months. Has been using indwelling Sandhu catheter since 2012 for urinary retention. He no longer follows with Dr. Yost but has an appointment to follow-up with Dr. Chase in a month. Primary care by [facility]. He has not had any fevers chills dysuria or hematuria. Nursing noticed that bulb on his Sandhu catheter was down to about 4 cc. She refilled at 10 cc after replacing it in the bladder and he still feels fullness like he has urine in his bladder. Allergies and Home Medications Allergies Coded Allergies: rivaroxaban (Unverified Allergy, Mild, N/V, 10/11/18) Patient Home Medication List Home Medication List Reviewed: Yes Apixaban (Eliquis) 5 Mg Tablet, 5 MG PO BID Prescribed by: DEBBIE HOPPER on 10/21/20 1040 Aspirin (Aspirin EC) 81 Mg Tablet.dr, 81 MG PO DAILY, (Reported) Entered as Reported by: REMIGIO MARTIN on 10/20/20 09 Atorvastatin Calcium (Lipitor) 40 Mg Tablet, 40 MG PO HS Prescribed by: DEBBIE HOPPER on 10/21/20 1040 Cefdinir (Cefdinir) 300 Mg Capsule, 300 MG PO BID Prescribed by: ODILON FITZGERALD on 08/04/21 1451 Clopidogrel Bisulfate (Clopidogrel) 75 Mg Tablet, 75 MG PO DAILY Prescribed by: DEBBIE HOPPER on 10/21/20 1040 Metoprolol Succinate (Metoprolol Succinate) 50 Mg Tab.er.24h, 50 MG PO DAILY Prescribed by: DEBBIE HOPPER on 10/21/20 1040 Multivitamin (Multivitamin) 1 Each Tablet, 1 EACH PO DAILY, (Reported) Entered as Reported by: REMIGIO MARTIN on 10/20/20 0902 [place]-3/Dha/Epa/Fish Oil (Fish Oil 1,000 mg Softgel) 1 Each Capsule, 1 EACH PO DAILY, (Reported) Entered as Reported by: REMIGIO MARTIN on 10/20/20 0902 Review of Systems Review of Systems Constitutional: No chills, No diaphoresis EENTM: No ear discharge, No ear pain Respiratory: No cough, No dyspnea on exertion Cardiovascular: No chest pain, No palpitations All Other Systemes Reviewed Negative Unless Noted: Yes Past Wbpiire-Lqfmfy-Lnwezx Hx Patient Social History Tobacco Use?: No Use of E-Cig and/or Vaping dev: No Immunizations Up To Date Tetanus Booster (TDap): Unknown PED Vaccines UTD: Yes First/Initial COVID19 Vaccinat: APRIL Second COVID19 Vaccination Neto: MAY Seasonal Allergies Seasonal Allergies: No Past Medical History Surgeries: Yes (CATARACT, INCISIONAL HERNIA, ICB) Cardiac, CABG, Eye Surgery, Open Heart Surgery, Pacemaker Respiratory: Yes (PE 4-5 TIMES, HX PNEUMONIA 2016) Pulmonary Embolism Currently Using CPAP: No Currently Using BIPAP: No Cardiac: Yes (CABG 07/2016; PACEMAKER; BIGEMINIY; LBBB; 1ST DEGREE AV BLOCK) Atrial Fibrillation, Cardiomyopathy, Coronary Artery Disease, Deep Vein Thrombosis, Heart Murmur, Irregular Heartbeat Neurological: No Reproductive Disorders: No Sexually Transmitted Disease: No HIV/AIDS: No Genitourinary: Yes (INDWELLING CATHETER) Benign Prostatic Hyperpl, Kidney Infection, Bladder Infection, Neurogenic Bladder, UTI-Chronic Gastrointestinal: Yes (RIGHT INGUINAL HERNIA) Gastroesophageal Reflux, Chronic Constipation Musculoskeletal: Yes (right ankle broken) Fractures Endocrine: No HEENT: Yes (READING GLASSES) Cataract Loss of Vision: Denies Hearing Impairment: Denies Cancer: No Psychosocial: No Integumentary: No Blood Disorders: No Adverse Reaction/Blood Tranf: No (HAS HAD BLOOD WITH NO REACTION) Family Medical History Cancer (LINING OF ABD CAVITY, AT AGE 80) 03 MOTHER Chest pain (FATHER OF NE AT AGE 83) 03 FATHER Congestive heart failure 03 FATHER Family history: Arthritis 03 MOTHER, Onset:60 years & older Family history: Cardiovascular disease 03 FATHER Heart disease 03 FATHER Hypercholesterolemia 03 FATHER 03 MOTHER Myocardial infarction 03 FATHER Prostate cancer (DIAGNOSED AT 70 OR 73 PER PT) 03 FATHER Stroke 09 SISTER Visual impairment (SISTER WEARS GLASSES ) 09 SISTER No Family History of: Abdominal aortic aneurysm [place]'s disease Alcoholism Aphasia Cancer of colon Cataract Congenital heart disease Cystic fibrosis Dementia Dysphagia Family history: Allergy Family history: Alzheimer's disease Family history: Asthma Family history: Breast disease Family history: Coronary thrombosis Family history: Diabetes mellitus Family history: Gastrointestinal disease Family history: Glaucoma Family history: Hypertension Family history: Osteoporosis Family history: Thyroid disorder Headache Hearing loss Hereditary disease History of - anemia History of - disorder History of - respiratory disease History of drug abuse Human immunodeficiency virus (HIV) seropositivity Infertile Kidney disease Malignant neoplasm of lung Parkinson's disease Psychotic disorder Seizure disorder Tuberculosis Cancer, CAD Over 55 Years Old, CVA Physical Exam Vital Signs Vital Signs - First Documented 08/04/21 14:01 Temp 36.6 Pulse 117 Resp 20 B/P (MAP) 178/102 (127) Pulse Ox 97 Capillary Refill : Height, Weight, BMI Height: 5'11.00" Weight: 210lbs. 7.0oz. 95.425710yv; 30.00 BMI Method:Stated General Appearance: WD/WN, no apparent distress HEENT: PERRL/EOMI, pharynx normal Neck: full range of motion, normal inspection Cardiovascular: normal peripheral pulses, regular rate, rhythm Respiratory: no respiratory distress, no accessory muscle use Gastrointestinal: non tender, soft, no organomegaly Neurologic/Psychiatric: alert, normal mood/affect Skin: normal color, warm/dry Progress/Results/Core Measures Suspected Sepsis SIRS Temperature: Pulse: 117 Respiratory Rate: 20 Blood Pressure 178 /102 Mean: 127 Results/Orders Lab Results Laboratory Tests Test 08/04/21 14:15 Range/Units Urine Color YELLOW Urine Clarity CLOUDY Urine pH 6.5 5-9 Urine Specific [place] 1.015 L 1.016-1.022 Urine Protein 1+ H NEGATIVE Urine Glucose (UA) NEGATIVE NEGATIVE Urine Ketones NEGATIVE NEGATIVE Urine Nitrite POSITIVE H NEGATIVE Urine Bilirubin NEGATIVE NEGATIVE Urine Urobilinogen 0.2 < = 1.0 MG/DL Urine Leukocyte Esterase 2+ H NEGATIVE Urine RBC (Auto) 3+ H NEGATIVE Urine RBC 10-25 H /HPF Urine WBC >100 H /HPF Urine Squamous Epithelial Cells NONE /HPF Urine Renal Epithelial Cells NONE /HPF Urine Crystals NONE /LPF Urine Bacteria LARGE H /HPF Urine Casts NONE /LPF Urine Mucus NEGATIVE /LPF Urine Culture Indicated YES My Orders Orders - ODILON FITZGERALD Ua Culture If Indicated (08/04/21 13:57) Catheter(Urinary) Care .0300, 1500 (08/04/21 14:15) Lidocaine 2% (Urojet) (Xylocaine Urojet) (08/04/21 14:30) Urine Culture (08/04/21 14:15) Ceftriaxone (Rocephin) (08/04/21 15:00) Lidocaine 1% Inj 20 Ml (Xylocaine 1% Inj (08/04/21 15:00) Vital Signs/I&O 08/04/21 14:01 Temp 36.6 Pulse 117 Resp 20 B/P (MAP) 178/102 (127) Pulse Ox 97 Capillary Refill : Blood Pressure Mean: 127 Progress Note : Time: 14:50 Progress Note Gram Rocephin and cefdinir with follow-up with the urologist as planned. Departure Impression Primary Impression: UTI (urinary tract infection) Qualified Codes: T83.511A - Infection and inflammatory reaction due to indwelling urethral catheter, initial encounter; N39.0 - Urinary tract infection, site not specified Disposition: HOME, SELF-CARE Condition: Stable Departure-Patient Inst. Decision time for Depature: 14:50 Referrals: CAROL CHURCH DO (PCP/Family) Primary Care Physician Patient Instructions: Urinary Tract Infection, Adult (DC) Add. Discharge Instructions: Drink lots of fluids. Cefdinir 1 capsule twice a day for 10 days. Follow-up with Dr. Chase at your scheduled appointment. Return to the ER for intractable vomiting, fever above 102.5 or other worrisome symptoms. All discharge instructions reviewed with patient and/or family. Voiced understanding. Scripts Cefdinir (Cefdinir) 300 Mg Capsule 300 MG PO BID for 10 Days, #20 CAP 0 Refills Prov: ODILON FITZGERALD 08/04/21 ODILON FITZGERALD Aug 04, 2021 14:17
[2021-08-04] MEDS ORDERED: LIDOCAINE UROJET 2% GEL 10 ML PKG TOP ONE (14:30)
[2021-08-04 14:32] LABS: BILIRUBIN,URINE NEGATIVE (NEGATIVE); CLARITY,URINE CLOUDY; COLOR,URINE YELLOW; GLUCOSE, URINE (UA) NEGATIVE (NEGATIVE); KETONES,URINE NEGATIVE (NEGATIVE); LEUKOCYTE ESTERASE ,URINE 2+ (NEGATIVE); NITRITE,URINE POSITIVE (NEGATIVE); PH,URINE 6.5 (5-9); PROTEIN,URINE 1+ (NEGATIVE)
[2021-08-04 14:45] LABS: BACTERIA,URINE LARGE /HPF; WBC,URINE >100 /HPF
[2021-08-04] MEDS ORDERED: CEFD300C3 PO ×2 (14:51→15:00)
[2021-08-04] MEDS ORDERED: LIDOCAINE 1% INJ 20 ML VIAL INJ ONE (15:00)
[2021-08-04] MEDS ORDERED: cefTRIAXone 1,000 MG VIAL IM ONE (15:00)
[2021-08-04 15:22] VITALS: BP 126/71
== END 2021-08-04 15:23 | disposition home or self-care (01) ==
LOC: EDUNIT# 13:44 → ER 13:46
DX: T83.511A Infection and inflammatory reaction due to indwelling urethral catheter, initial encounter (principal); Z28.311 Partially vaccinated for COVID-19
CPT/HCPCS: 51702; 81000; 87077; 87088

== ENCOUNTER 2021-08-08 15:31 | Observation (INO) | payer MEDICARE ==
[~2021-08-08] VITALS: Ht 182 cm; Wt 99.6 kg
--- NOTE | 2021-08-08 16:03 | ED Cardiac General ---
History of Present Illness General Chief Complaint: Chest Pain Stated Complaint: HEADACHE/CP Nursing Triage Note: DESCRIBES CHEST TIGHTNESS AND HEADACHE SINCE 0930 THIS AM, SOB DIZZINESS ALSO. HX OF BYPASS SURGERY Source: patient Exam Limitations: no limitations History of Present Illness Date Seen by Provider: Aug 08, 2021 Time Seen by Provider: 15:50 Initial Comments Patient is a 75-year-old male who presents to the emergency department today with a chief complaint of chest tightness, onset this morning around 930 or 10:00 after he rode his bicycle to a local convenience store for breakfast. The tightness does not radiate, he did not break out into a sweat. He is not naus eated. Shortly after the bicycle ride he also developed a frontal headache that he currently rates a "7 or 8". He feels a little short of breath and feels a little dizzy with getting up and around. He has a history of cardiac bypass surgery but no history of acute NM. He states laying down this afternoon made his headache worse. He has not really taken anything for it. His bureau chief is Dr. Sullivan. No recent fevers, chills, cough or congestion. No runny nose, earache or sore throat. He is not having any other GI or issues. He has chronic edema in his lower legs/ankles. He is off blood thinners currently after bypass. All other review of systems reviewed and negative except as stated Timing/Duration: 4-6 hours Severity: moderate Location: central Activities at Onset: activity Prior CP/Workup: other (CABG) Modifying Factors: worse with lying down NTG SL RN OFFICE: No ASA po RN OFFICE: Yes (at home) Associated Systoms: Chest Pain, Shortness of Air Allergies and Home Medications Allergies Coded Allergies: rivaroxaban (Unverified Allergy, Mild, N/V, 10/11/18) Patient Home Medication List Home Medication List Reviewed: Yes Apixaban (Eliquis) 5 Mg Tablet, 5 MG PO BID Prescribed by: DEBBIE HOPPER on 10/21/20 1040 Aspirin (Aspirin EC) 81 Mg Tablet., 81 MG PO DAILY, (Reported) Entered as Reported by: REMIGIO MARTIN on 10/20/20 0902 Atorvastatin Calcium (Lipitor) 40 Mg Tablet, 40 MG PO HS Prescribed by: DEBBIE HOPPER on 10/21/20 1040 Cefdinir (Cefdinir) 300 Mg Capsule, 300 MG PO BID Prescribed by: ODILON FITZGERALD on 08/04/21 1500 Clopidogrel Bisulfate (Clopidogrel) 75 Mg Tablet, 75 MG PO DAILY Prescribed by: DEBBIE HOPPER on 10/21/20 1040 Metoprolol Succinate (Metoprolol Succinate) 50 Mg Tab.er.24h, 50 MG PO DAILY Prescribed by: DEBBIE HOPPER on 10/21/20 1040 Multivitamin (Multivitamin) 1 Each Tablet, 1 EACH PO DAILY, (Reported) Entered as Reported by: REMIGIO MARTIN on 10/20/20 09 [place]-3/Dha/Epa/Fish Oil (Fish Oil 1,000 mg Softgel) 1 Each Capsule, 1 EACH PO DAILY, (Reported) Entered as Reported by: REMIGIO MARTIN on 10/20/20901 Review of Systems Review of Systems Constitutional: see HPI EENTM: No Symptoms Reported Respiratory: SOA at Rest Cardiovascular: Chest Pain Gastrointestinal: No Symptoms Reported Genitourinary: No Symptoms Reported Musculoskeletal: no symptoms reported Skin: no symptoms reported Psychiatric/Neurological: Headache, Other (dizzy) All Other Systems Reviewed Negative Unless Noted: Yes Past Hfntgnz-Tvbhbq-Hitgmd Hx Patient Social History Tobacco Use?: No Use of E-Cig and/or Vaping dev: No Substance use?: No Alcohol Use?: No Pt feels they are or have been: No Immunizations Up To Date Tetanus Booster (TDap): Unknown PED Vaccines UTD: Yes First/Initial COVID19 Vaccinat: APRIL Second COVID19 Vaccination Neto: MAY COVID19 Vaccine Database Management Specialist: ROBERT Seasonal Allergies Seasonal Allergies: No Past Medical History Surgeries: Yes (CATARACT, INCISIONAL HERNIA, ICB) Cardiac, CABG, Eye Surgery, Open Heart Surgery, Pacemaker Respiratory: Yes (PE 4-5 TIMES, HX PNEUMONIA 2016) Pulmonary Embolism Currently Using CPAP: No Currently Using BIPAP: No Cardiac: Yes (CABG 07/2016; PACEMAKER; BIGEMINIY; LBBB; 1ST DEGREE AV BLOCK) Atrial Fibrillation, Cardiomyopathy, Coronary Artery Disease, Deep Vein Thrombosis, Heart Murmur, Irregular Heartbeat Neurological: No Reproductive Disorders: No Sexually Transmitted Disease: No HIV/AIDS: No Genitourinary: Yes (INDWELLING CATHETER) Benign Prostatic Hyperpl, Kidney Infection, Bladder Infection, Neurogenic Bladd er, UTI-Chronic Gastrointestinal: Yes (RIGHT INGUINAL HERNIA) Gastroesophageal Reflux, Chronic Constipation Musculoskeletal: Yes (right ankle broken) Fractures Endocrine: No HEENT: Yes (READING GLASSES) Cataract Loss of Vision: Denies Hearing Impairment: Denies Cancer: No Psychosocial: No Integumentary: No Blood Disorders: No Adverse Reaction/Blood Tranf: No (HAS HAD BLOOD WITH NO REACTION) Family Medical History Cancer (LINING OF ABD CAVITY, AT AGE 80) 03 MOTHER Chest pain (FATHER OF [place] AT AGE 83) 03 FATHER Congestive heart failure 03 FATHER Family history: Arthritis 03 MOTHER, Onset:60 years & older Family history: Cardiovascular disease 03 FATHER Heart disease 03 FATHER Hypercholesterolemia 03 FATHER 03 MOTHER Myocardial infarction 03 FATHER Prostate cancer (DIAGNOSED AT 70 OR 71 PER PT) 03 FATHER Stroke 09 SISTER Visual impairment (SISTER WEARS GLASSES ) 09 SISTER No Family History of: Abdominal aortic aneurysm [place]'s disease Alcoholism Aphasia Cancer of colon Cataract Congenital heart disease Cystic fibrosis Dementia Dysphagia Family history: Allergy Family history: Alzheimer's disease Family history: Asthma Family history: Breast disease Family history: Coronary thrombosis Family history: Diabetes mellitus Family history: Gastrointestinal disease Family history: Glaucoma Family history: Hypertension Family history: Osteoporosis Family history: Thyroid disorder Headache Hearing loss Hereditary disease History of - anemia History of - disorder History of - respiratory disease History of drug abuse Human immunodeficiency virus (HIV) seropositivity Infertile Kidney disease Malignant neoplasm of lung Parkinson's disease Psychotic disorder Seizure disorder Tuberculosis Cancer, CAD Over 55 Years Old, CVA Physical Exam Vital Signs Vital Signs - First Documented 08/08/21 15:35 Pulse 63 Resp 20 B/P (MAP) 144/104 (117) Pulse Ox 98 Capillary Refill : Height, Weight, BMI Height: 5'11.00" Weight: 210lbs. 7.0oz. 95.813328gd; 30.00 BMI Method:Stated General Appearance: No Apparent Distress, WD/WN HEENT: PERRL/EOMI, Pharynx Normal Neck: Normal Inspection Respiratory: Lungs Clear, Normal Breath Sounds, No Accessory Muscle Use, No Respiratory Distress Cardiovascular: Regular Rate, Rhythm, Systolic Murmur Gastrointestinal: Normal Bowel Sounds, Non Tender, Soft Progress/Results/Core Measures Results/Orders Lab Results Laboratory Tests Test 08/08/21 15:50 Range/Units White Blood Count 6.6 4.3-11.0 10^3/uL Red Blood Count 5.06 4.30-5.52 10^6/uL Hemoglobin 12.0 L 13.3-17.7 g/dL Hematocrit 39 L 40-54 % Mean Corpuscular Volume 77 L 80-99 fL Mean Corpuscular Hemoglobin 24 L 25-34 pg Mean Corpuscular Hemoglobin Concent 31 L 32-36 g/dL Red Cell Distribution Width 18.1 H 10.0-14.5 % Platelet Count 219 130-400 10^3/uL Mean Platelet Volume 10.1 9.0-12.2 fL Immature Granulocyte % (Auto) 0 % Neutrophils (%) (Auto) 52 42-75 % Lymphocytes (%) (Auto) 29 12-44 % Monocytes (%) (Auto) 12 0-12 % Eosinophils (%) (Auto) 6 0-10 % Basophils (%) (Auto) 1 0-10 % Neutrophils # (Auto) 3.4 1.8-7.8 X 10^3 Lymphocytes # (Auto) 1.9 1.0-4.0 X 10^3 Monocytes # (Auto) 0.8 0.0-1.0 X 10^3 Eosinophils # (Auto) 0.4 H 0.0-0.3 10^3/uL Basophils # (Auto) 0.1 0.0-0.1 10^3/uL Immature Granulocyte # (Auto) 0.0 0.0-0.1 10^3/uL Prothrombin Time 14.0 12.2-14.7 SEC INR Comment 1.0 0.8-1.4 Activated Partial Thromboplast Time 31 24-35 SEC Sodium Level 134 L 135-145 MMOL/L Potassium Level 4.6 3.6-5.0 MMOL/L Chloride Level 103 98-107 MMOL/L Carbon Dioxide Level 19 L 21-32 MMOL/L Anion Gap 12 5-14 MMOL/L Blood Urea Nitrogen 25 H 7-18 MG/DL Creatinine 1.17 0.60-1.30 MG/DL Estimat Glomerular Filtration Rate 64 BUN/Creatinine Ratio 21 Glucose Level 81 70-105 MG/DL Calcium Level 9.4 8.5-10.1 MG/DL Corrected Calcium 9.2 8.5-10.1 MG/DL Magnesium Level 1.9 1.6-2.4 MG/DL Total Bilirubin 0.5 0.1-1.0 MG/DL Aspartate Amino Transf (AST/SGOT) 17 5-34 U/L Alanine Aminotransferase (ALT/SGPT) 12 0-55 U/L Alkaline Phosphatase 102 40-136 U/L Myoglobin 55.4 10.0-92.0 NG/ML Troponin I 0.116 H <0.028 NG/ML Total Protein 7.3 6.4-8.2 GM/DL Albumin 4.2 3.2-4.5 GM/DL My Orders Orders - HAMIDA MANZANO MD Cbc With Automated Diff (08/08/21 15:45) Magnesium (08/08/21 15:45) Chest 1 View, Ap/Pa Only (08/08/21 15:45) Ekg Tracing (08/08/21 15:45) Comprehensive Metabolic Panel (08/08/21 15:45) Myoglobin Serum (08/08/21 15:45) Protime With Inr (08/08/21 15:45) Partial Thromboplastin Time (08/08/21 15:45) O2 (08/08/21 15:45) Monitor-Rhythm Ecg Trace Only (08/08/21 15:45) Lipid Panel (08/09/21 06:00) Ed Iv/Invasive Line Start (08/08/21 15:45) Troponin I Alberto (08/08/21 15:45) Metoclopramide Injection (Reglan Injecti (08/08/21 16:30) Diphenhydramine Injection (Benadryl Inje (08/08/21 16:30) Ketorolac Injection (Toradol Injection) (08/08/21 16:30) Ns Iv 1000 Ml (Sodium Chloride 0.9%) (08/08/21 16:30) Nitroglycerin 0.4 Mg Btl 25's (Nitrostat (08/08/21 17:15) Nitroglycerin 0.4 Mg Btl 25's (Nitrostat (08/08/21 17:05) Morphine Injection (Morphine Injection (08/08/21 17:16) Enoxaparin Injection (Lovenox Injection) (08/08/21 17:30) Ed Admission (Communication) (08/08/21 17:18) Medications Given in ED Vital Signs/I&O 08/08/21 08/08/21 15:35 17:08 Pulse 63 Resp 20 B/P (MAP) 144/104 (117) 128/64 Pulse Ox 98 Blood Pressure Mean: 117 Progress Progress Note #1: Time: 17:11 Progress Note Patient care discussed with Dr. Sullivan, he recommends 2 baby aspirin now and Plavix 75 if he has not taken it. He would like a dose of weight-based Lovenox now as well as Toprol-XL 50 now and daily. He recommends morphine for his chest pain which will also help his headache. He recommended ICU admission and n.p.o. after a clear liquid diet in the morning. Will call and discuss with Dr. Hopper for admission to the ICU. (4 - patient states he has taken his aspirin today - states actually the med ic *did* give him aspirin en route. He's also had his plavix and betablocker today. will give the lovenox and put him in the ICU) Progress Note #2: Time: 17:45 Progress Note KRISHNAN pain down to a "6"; would like more pain medications. will give another dose of Morphine - had just 2mg last time. BP 127 systolic, Initial ECG Impression Date: Aug 08, 2021 Initial ECG Impression Time: 15:52 Initial ECG Rate: 63 Initial ECG Rhythm: Normal Sinus Initial ECG Intervals LBBB UT 259 QRS 177 QTc 459 Initial ECG Impression: 1st Degree AV Block Comment PVCs noted Diagnostic Imaging Comments [facility], [place] NAME: JORGE ALBERTO CALDWELL JR [facility] REC#: [id number] PT STATUS: REG ER : 1945 PHYSICIAN: HAMIDA MANZANO MD ADMIT DATE: 08/08/21/ER Draft Date of Exam:08/08/21 CHEST 1 VIEW, AP/PA ONLY EXAMINATION: Chest radiograph, portable AP view. DATE: 08/08/2021 4:29 PM INDICATION: 75-year-old male, chest tightness. Shortness of breath. COMPARISON: October 18, 2020. FINDINGS: There is a left-sided cardiac assist device with leads. There are median sternotomy wires. Heart size and mediastinal contours are unchanged. There is no identified pneumothorax. There is no large pleural effusion. There is nonspecific left basilar opacification which appears similar to the prior study. IMPRESSION: Nonspecific left lower lobe airspace consolidation which appears similar to comparison exam. Dictated on workstation # [id number] Dict: 08/08/21 1633 Trans: 08/08/21 1636 [facility] [id number] Interpreted by: ESTEBAN DÍAZ MD Electronically signed by: Departure Communication (Admissions) Time/Spoke to Admitting Phy: 17:[address] Hopper Time/Spoke to Consulting Phy: 17:[address] Sullivan Impression Primary Impression: Chest pain due to CAD Disposition: ADMITTED INPATIENT Condition: Stable Admissions Decision to Admit Reason: Admit from ER (General) Decision to Admit/Date: Aug 08, 2021 Time/Decision to Admit Time: 17:08 Departure-Patient Inst. Referrals: CAROL CHURCH DO (PCP/Family) Primary Care Physician HAMIDA MANZANO MD Aug 08, 2021 16:03
[2021-08-08 16:11] LABS: ALBUMIN 4.2 GM/DL (3.2-4.5); POTASSIUM 4.6 MMOL/L (3.6-5.0)
[2021-08-08 16:12] LABS: CALCIUM 9.4 MG/DL (8.5-10.1)
[2021-08-08 16:13] LABS: TOTAL PROTEIN 7.3 GM/DL (6.4-8.2)
[2021-08-08 16:15] LABS: BILIRUBIN,TOTAL 0.5 MG/DL (0.1-1.0)
[2021-08-08 16:17] LABS: CREATININE SERUM 1.17 MG/DL (0.60-1.30)
[2021-08-08 16:20] LABS: MAGNESIUM 1.9 MG/DL (1.6-2.4)
[2021-08-08 16:25] LABS: BASOPHILS # (AUTO) 0.1 10^3/uL (0.0-0.1); BASOPHILS % (AUTO) 1 % (0-10); EOSINOPHILS # (AUTO) 0.4 10^3/uL (0.0-0.3); EOSINOPHILS % (AUTO) 6 % (0-10); HEMATOCRIT 39 % (40-54); LYMPHOCYTES # (AUTO) 1.9 X 10^3 (1.0-4.0); LYMPHOCYTES % (AUTO) 29 % (12-44); MEAN CORPUSCULAR HEMOGLOBIN 24 pg (25-34); MEAN CORPUSCULAR HGB CONC 31 g/dL (32-36); MEAN CORPUSCULAR VOLUME 77 fL (80-99); MEAN PLATELET VOLUME 10.1 fL (9.0-12.2); MONOCYTES # (AUTO) 0.8 X 10^3 (0.0-1.0); MONOCYTES % (AUTO) 12 % (0-12); NEUTROPHILS # (AUTO) 3.4 X 10^3 (1.8-7.8); NEUTROPHILS % (AUTO) 52 % (42-75); PLATELET COUNT 219 10^3/uL (130-400); WHITE BLOOD COUNT 6.6 10^3/uL (4.3-11.0)
[2021-08-08] MEDS ORDERED: METOCLOPRAMIDE INJ 10 MG/2 ML (REGLAN) IVP ONE (16:30)
[2021-08-08] MEDS ORDERED: diphenhydrAMINE 50 MG/ML INJ (BENADRYL) IVP ONE (16:30)
[2021-08-08] MEDS ORDERED: KETOROLAC 30 MG/ML VIAL IVP ONE (16:30)
[2021-08-08] MEDS ORDERED: NS IV 1000 ML 1,000 ML IV SCH (16:30)
--- NOTE | 2021-08-08 16:36 | Diagnostic Imaging Report ---
EXAMINATION: Chest radiograph, portable AP view. DATE: 08/08/2021 4:29 PM INDICATION: 75-year-old male, chest tightness. Shortness of breath. COMPARISON: October 18, 2020. FINDINGS: There is a left-sided cardiac assist device with leads. There are median sternotomy wires. Heart size and mediastinal contours are unchanged. There is no identified pneumothorax. There is no large pleural effusion. There is nonspecific left basilar opacification which appears similar to the prior study. IMPRESSION: Nonspecific left lower lobe airspace consolidation which appears similar to comparison exam. Dictated by: Dictated on workstation # [id number]
[2021-08-08] MEDS ORDERED: NITROGLYCERIN 0.4 MG SL TABS BTL 25'S SL ONE (17:05)
[2021-08-08] MEDS ORDERED: NITROGLYCERIN 0.4 MG SL TABS BTL 25'S SL PRN ×2 (17:15→18:30)
[2021-08-08] MEDS ORDERED: morphine INJ 10 MG/ML 1ML (SYR OR VIAL) IVP STA ×2 (17:16→17:46)
[2021-08-08] MEDS ORDERED: ENOXAPARIN 100 MG/1 ML (LOVENOX) SYR SC ONE (17:30)
--- NOTE | 2021-08-08 18:25 | Tele-ICU Progress Note ---
Subjective Date Seen by a Provider: Aug 08, 2021 Time Seen by a Provider: 18:20 Subjective/Events-last exam Available chart/vitals/labs/images reviewed. Video assessment done using telemetry ICU camera, rest of exam as per RN. Discussion with the RN, exam as per RN. Hospital course He is a 75-year-old male with past medical history of coronary artery disease status post bypass surgery and pacemaker insertion presented to the emergency room with a complaint of chest heaviness following a bicycle ride associated with a headache. He received morphine in the emergency room and on the way to the hospital he was given aspirin. Also patient is on beta-blockers Plavix and aspirin at home. He received a dose of medication prior to arrival. Now he is pain-free. He was admitted to the intensive care unit after discussing with the screen printing supervisor who is planning to do a cardiac catheterization tomorrow. Patient denies any sweating dizzy spell at this time. He is vaccinated for COVID. Sepsis Event Evaluation Height, Weight, BMI Height: 5'." Weight: 210lbs. 7.0oz. 95.151670qy; 30.00 BMI Method:Stated Exam Exam Patient acknowledged, consented, and participated in this virtual visit which was conducted using real time audio/video Vital Signs Date Time Temp Pulse Resp B/P (MAP) Pulse Ox O2 Delivery O2 Flow Rate FiO2 08/08/21 18:10 98 Nasal Cannula 2.00 08/08/21 18:03 58 17 121/67 93 08/08/21 17:08 128/64 08/08/21 15:35 63 20 144/104 (117) 98 Height & Weight Height: '." Weight: 210lbs. 7.0oz. 95.336021hg; 30.00 BMI Method:Stated General Appearance: No Apparent Distress, WD/WN HEENT: PERRL/EOMI, Pharynx Normal Neck: Normal Inspection Respiratory: Lungs Clear, Normal Breath Sounds, No Accessory Muscle Use, No Respiratory Distress Cardiovascular: Regular Rate, Rhythm, Systolic Murmur Results Lab Laboratory Tests 08/08/21 15:50 Assessment/Plan Assessment/Plan 1. Chest pain possibly unstable angina in this patient who has history of coronary artery disease and bypass surgery. 2. Elevated troponin 3. History of coronary artery bypass surgery and pacemaker insertion. Recommendations 1. He is already started on Lovenox and aspirin. Next 2. As needed morphine for headache and chest pain. 3. Coronary angiogram and further treatment of his unstable angina per screen printing supervisor. 4. DVT prophylaxis and ulcer prophylaxis Critical Care: Critically Ill Patient Time spent with patient (mins): 25 TEODORO JENKINS MD Aug 08, 2021 18:25
[2021-08-08] MEDS ORDERED: PATIENT MAY USE OWN MEDS, ALL PO SCH ×2 (18:30)
[2021-08-08] MEDS ORDERED: diphenhydrAMINE 25 MG TAB (BENADRYL) PO PRN (18:30)
[2021-08-08] MEDS ORDERED: polyethylene glycoL POWDER 17 GM (MIRALAX) PACK PO PRN (18:30)
[2021-08-08] MEDS ORDERED: CALCIUM CARBONATE 500 MG (TUMS) TAB.CHEW PO PRN (18:30)
[2021-08-08] MEDS ORDERED: morphine INJ 4 MG/ML 1 ML (VIAL/SYRINGE) IV PRN (18:30)
[2021-08-08] MEDS ORDERED: MILK OF MAGNESIA 400 MG/5 ML 30 ML UDC PO PRN (18:30)
[2021-08-08] MEDS ORDERED: ACETAMINOPHEN 325 MG TABLET PO PRN (18:30)
[2021-08-08] MEDS ORDERED: BISACODYL 10 MG SUPP (DULCOLAX) PR PRN (18:30)
[2021-08-08] MEDS ORDERED: diphenhydrAMINE 50 MG/ML INJ (BENADRYL) IVP PRN (18:30)
[2021-08-08] MEDS ORDERED: NALOXONE 0.4 MG/ML 1 ML (NARCAN) VIAL IV PRN (18:30)
[2021-08-08] MEDS ORDERED: ONDANSETRON 4 MG (ZOFRAN) ORAL DISSOLVE TAB PO PRN (18:30)
[2021-08-08] MEDS ORDERED: ONDANSETRON 4 MG/2 ML (SDV) Z0FRAN IV PRN (18:30)
[2021-08-08] MEDS ORDERED: LACTULOSE SYRUP 10GM/15ML (ENULOSE) 30ML UDC PO PRN (18:30)
[2021-08-08] MEDS ORDERED: ANTACID SUSP 30 ML UDC (MYLANTA) PO PRN (18:30)
[2021-08-08] MEDS ORDERED: MELATONIN 3 MG TABLET PO PRN (18:30)
--- NOTE | 2021-08-08 19:00 | History & Physical-Hospitalist ---
History of Present Illness HPI/Chief Complaint CC: Unstable angina HPI: This is a 75yoWM clinic patient of [facility] who has a h/o CAD and last cath 06/2020 noted coronary stenosis but no intervention at that time and initiated medical treatment who presented to the ER with CP and elevated troponin was noted. Source: patient Exam Limitations: no limitations Date Seen 08/08/21 Time Seen by a Provider: 19:00 Attending Physician Yaw Aiken DO PCP Admitting Physician: Cinthya Hopper DO Attending Physician: Cinthya Hopper DO Referring Physician Date of Admission Aug 08, 2021 at 17:19 Home Medications & Allergies Home Medications Reviewed patient Home Medication Reconciliation performed by pharmacy medication reconciliations process environmental technician and/or nursing. Patients Allergies have been reviewed. Allergies Allergies Coded Allergies rivaroxaban (Unverified Allergy, Mild, N/V, 10/11/18) Past Kliuhvy-Zcwkga-Zdmsnb Hx Patient Social History Marrital Status: single Employed/Student: retired Tobacco Use?: No Smoking Status: Former Smoker Use of E-Cig and/or Vaping dev: No Substance use?: No Alcohol Use?: No Pt feels they are or have been: No Immunizations Up To Date Date of Influenza Vaccine: Jan 25, 2019 First/Initial COVID19 Vaccinat: APRIL Second COVID19 Vaccination Neto: MAY Tetanus Booster (TDap): Unknown Hepatitis A: No Hepatitis B: No PED Vaccines UTD: Yes Date of Pneumonia Vaccine: Sep 16, 2017 Seasonal Allergies Seasonal Allergies: No Current Status Advance Directives: No Communicates: Verbally Primary Language: Emirati Preferred Spoken Language: Emirati Past Medical History Surgeries: Cardiac, CABG, Eye Surgery, Open Heart Surgery, Pacemaker Pulmonary Embolism Currently Using CPAP: No Currently Using BIPAP: No Atrial Fibrillation, Cardiomyopathy, Coronary Artery Disease, Deep Vein T hrombosis, Heart Murmur, Irregular Heartbeat Sexually Transmitted Disease: No HIV/AIDS: No Benign Prostatic Hyperpl, Kidney Infection, Bladder Infection, Neurogenic Bladder, UTI-Chronic Gastroesophageal Reflux, Chronic Constipation Fractures Cataract Loss of Vision: Denies Hearing Impairment: Denies Blood Disorders: No Adverse Reaction/Blood Tranf: No (HAS HAD BLOOD WITH NO REACTION) PMHx: PE: Unable to tolerate blood thinners Chronic systolic CHF EF 40% echo 11/2016 CAD s/p quintuple bypass 07/2016 ([facility] Dewey in [place]) 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 HTN Orthostatic hypotension PSurghx: Coronary artery bypass Family Medical History Cancer (LINING OF ABD CAVITY, AT AGE 80) 03 MOTHER Chest pain (FATHER OF [place] AT AGE 83) 03 FATHER Congestive heart failure 03 FATHER Family history: Arthritis 03 MOTHER, Onset:60 years & older Family history: Cardiovascular disease 03 FATHER Heart disease 03 FATHER Hypercholesterolemia 03 FATHER 03 MOTHER Myocardial infarction 03 FATHER Prostate cancer (DIAGNOSED AT 70 OR 73 PER PT) 03 FATHER Stroke 09 SISTER Visual impairment (SISTER WEARS GLASSES ) 09 SISTER No Family History of: Abdominal aortic aneurysm [place]'s disease Alcoholism Aphasia Cancer of colon Cataract Congenital heart disease Cystic fibrosis Dementia Dysphagia Family history: Allergy Family history: Alzheimer's disease Family history: Asthma Family history: Breast disease Family history: Coronary thrombosis Family history: Diabetes mellitus Family history: Gastrointestinal disease Family history: Glaucoma Family history: Hypertension Family history: Osteoporosis Family history: Thyroid disorder Headache Hearing loss Hereditary disease History of - anemia History of - disorder History of - respiratory disease History of drug abuse Human immunodeficiency virus (HIV) seropositivity Infertile Kidney disease Malignant neoplasm of lung Parkinson's disease Psychotic disorder Seizure disorder Tuberculosis Cancer, CAD Over 55 Years Old, CVA Review of Systems Constitutional: see HPI EENTM: no symptoms reported Respiratory: no symptoms reported Cardiovascular: chest pain Gastrointestinal: no symptoms reported Genitourinary: no symptoms reported Musculoskeletal: no symptoms reported Skin: no symptoms reported Psychiatric/Neurological: No Symptoms Reported All Other Systems Reviewed Negative Unless Noted: Yes Physical Exam Physical Exam Vital Signs Vital Signs - First Documented 08/08/21 08/08/21 15:35 18:10 Pulse 63 Resp 20 B/P (MAP) 144/104 (117) Pulse Ox 98 O2 Delivery Nasal Cannula O2 Flow Rate 2.00 Capillary Refill : Height, Weight, BMI Height: 5'11.00" Weight: 210lbs. 7.0oz. [id number]; 30.00 BMI Method:Stated General Appearance: No Apparent Distress, Chronically ill Eyes: Right Eye Normal Inspection, Right Eye PERRL HEENT: PERRL/EOMI, Normal ENT Inspection, Pharynx Normal, Moist Mucous Membranes Neck: Full Range of Motion, Normal Inspection, Non Tender Respiratory: Chest Non Tender, Lungs Clear, Normal Breath Sounds, No Accessory Muscle Use, No Respiratory Distress Cardiovascular: Regular Rate, Rhythm, No Edema, No Gallop, No JVD, No Murmur, Normal Peripheral Pulses Gastrointestinal: Normal Bowel Sounds, No Organomegaly, No Pulsatile Mass, Non Tender, Soft Back: Normal Inspection, No CVA Tenderness, No Vertebral Tenderness Extremity: Normal Capillary Refill, Normal Inspection, Normal Range of Motion, Non Tender, No Calf Tenderness, No Pedal Edema Neurologic/Psychiatric: Alert, Oriented x3, No Motor/Sensory Deficits, Normal Mood/Affect Skin: Normal Color, Warm/Dry Lymphatic: No Adenopathy Results Results/Procedures Labs Laboratory Tests 08/08/21 15:50 Patient resulted labs reviewed. Assessment/Plan Admission Diagnosis Assessment: Unstable angina NSTEMI AF OAC CAD Plan: Cath tomorrow Monitor closely ICU Dr Sullivan Admission Status: Observation Reason for Inpatient Admission: unstable angina Diagnosis/Problems Diagnosis/Problems (1) Chest pain due to CAD Status: Acute (2) CAD (coronary artery disease) of bypass graft Status: Chronic (3) Pacemaker (4) Renal insufficiency Status: Chronic (5) Essential (primary) hypertension Status: Chronic Clinical Quality Measures AMI/AHF: ASA po Prior to arrival: Yes (at home) CINTHYA HOPPER DO Aug 08, 2021 18:59
[2021-08-08 21:03] VITALS: BP 144/104
[2021-08-08] MEDS ORDERED: RT-ALBUTEROL SULF 2.5 MG/3 ML PRE-MIX VIAL INH PRN (21:15)
[2021-08-08] MEDS: DOCUSATE SODIUM 100 MG (COLACE) CAP PO SCH (23:41)
[2021-08-08] MEDS: SENNOSIDES 8.6 MG (SENOKOT) TAB PO SCH (23:42)
[2021-08-09 05:05] LABS: BASOPHILS # (AUTO) 0.1 10^3/uL (0.0-0.1); BASOPHILS % (AUTO) 1 % (0-10); EOSINOPHILS # (AUTO) 0.3 10^3/uL (0.0-0.3); EOSINOPHILS % (AUTO) 6 % (0-10); HEMATOCRIT 37 % (40-54); HEMOGLOBIN 11.3 g/dL (13.3-17.7); LYMPHOCYTES # (AUTO) 2.1 10^3/uL (1.0-4.0); LYMPHOCYTES % (AUTO) 38 % (12-44); MEAN CORPUSCULAR HEMOGLOBIN 24 pg (25-34); MEAN CORPUSCULAR HGB CONC 31 g/dL (32-36); MEAN CORPUSCULAR VOLUME 77 fL (80-99); MEAN PLATELET VOLUME 10.2 fL (9.0-12.2); MONOCYTES # (AUTO) 0.6 10^3/uL (0.0-1.0); MONOCYTES % (AUTO) 10 % (0-12); NEUTROPHILS # (AUTO) 2.5 10^3/uL (1.8-7.8); NEUTROPHILS % (AUTO) 45 % (42-75); PLATELET COUNT 177 10^3/uL (130-400); WHITE BLOOD COUNT 5.5 10^3/uL (4.3-11.0)
[2021-08-09 05:19] LABS: ALBUMIN 3.6 GM/DL (3.2-4.5); POTASSIUM 4.3 MMOL/L (3.6-5.0)
[2021-08-09 05:20] LABS: CALCIUM 8.7 MG/DL (8.5-10.1)
[2021-08-09 05:21] LABS: TOTAL PROTEIN 6.3 GM/DL (6.4-8.2)
[2021-08-09 05:23] LABS: BILIRUBIN,TOTAL 0.6 MG/DL (0.1-1.0)
[2021-08-09 05:25] LABS: CREATININE SERUM 1.19 MG/DL (0.60-1.30)
[2021-08-09] MEDS: POTASSIUM CL 10MEQ/50ML IVPB 50 ML IV SCH (05:25)
[2021-08-09] MEDS: KCL 20 MEQ TAB (K-DUR) PO SCH (05:25)
[2021-08-09] MEDS: MAGNESIUM 1 GM/100 ML IVPB 100 ML IV SCH (05:25)
--- NOTE | 2021-08-09 06:22 | Progress Note - Hospitalist ---
Subjective HPI/CC On Admission Date Seen by Provider: Aug 09, 2021 Time Seen by Provider: 10:00 CC: Unstable angina HPI: This is a 75yoWM clinic patient of [facility] who has a h/o CAD and last cath 06/2020 noted coronary stenosis but no intervention at that time and initiated medical treatment who presented to the ER with CP and elevated troponin was noted. Subjective/Events-last exam Patient denies CP Dr Sullivan will see him today Troponin noted Review of Systems General: Fatigue Objective Exam Vital Signs Vital Signs Date Time Temp Pulse Resp B/P (MAP) Pulse Ox O2 Delivery O2 Flow Rate FiO2 08/09/21 14:00 80 38 91 Room Air 08/09/21 13:00 124/75 08/09/21 07:57 36.0 08/08/21 23:00 08/08/21 21:03 28 Capillary Refill : General Appearance: No Apparent Distress, WD/WN, Chronically ill Respiratory: Lungs Clear, Normal Breath Sounds Cardiovascular: Regular Rate, Rhythm Neurologic/Psychiatric: Alert, Oriented x3, No Motor/Sensory Deficits, Normal Mood/Affect Results/Procedures Lab Laboratory Tests 08/08/21 15:50 08/09/21 04:37 Patient resulted labs reviewed. Assessment/Plan Assessment and Plan Assess & Plan/Chief Complaint Assessment: Unstable angina NSTEMI AF OAC CAD Plan: Cath ? Monitor closely ICU Dr Sullivan Critical Care Critically Ill Patient Diagnosis/Problems Diagnosis/Problems (1) Chest pain due to CAD Status: Acute (2) CAD (coronary artery disease) of bypass graft Status: Chronic (3) Pacemaker (4) Renal insufficiency Status: Chronic (5) Essential (primary) hypertension Status: Chronic Clinical Quality Measures AMI/AHF: ASA po Prior to arrival: Yes (at home) DEBBIE HOPPER DO Aug 09, 2021 06:22
[2021-08-09] MEDS: DOCUSATE SODIUM 100 MG (COLACE) CAP PO SCH ×2 (07:47→20:54)
[2021-08-09] MEDS: SENNOSIDES 8.6 MG (SENOKOT) TAB PO SCH ×2 (07:48→20:54)
[2021-08-09] MEDS: ASPIRIN E.C. 81 MG (ECOTRIN) TAB PO SCH (08:12)
--- NOTE | 2021-08-09 09:21 | Tele-ICU Progress Note ---
Subjective Date Seen by a Provider: Aug 09, 2021 Time Seen by a Provider: 07:20 Subjective/Events-last exam This virtual visit was conducted using real time audio/video. Thank you for asking us to see this patient adm w chest pain/elev trops. Recent events: PE: Comfortable, NSR w occ PVCs. VSS. O2 sat 98% on 2 LPM. HEENT: No obvious masses, adenopathy or JVD. Chest: clear to auscultation. CV: RRR S1 S2 No murmur or added sounds. Abd: Non-tender. Bowel sounds Y. : Unremarkable. Sandhu Y. TILE DITCHER/psychiatric: Grossly intact. No obvious focal findings. Extremities: 1+ edema. Capillary refill < 3 seconds. Skin: unremarkable. Results: Elevated BUN 24, trop 0.123. Decreased Hb 11.3. CXR: No change, pacemaker, sternotomy wires. Available chart/ vitals / labs / images reviewed. Video assessment done using teleICU camera, rest of exam as per RN. A/P: Critical Care: critically ill patient. Cont. O2, PRN albut/, ASA. Possible CCL today. Discussed with RN Zandra. Asked RN to reach out to eICU if any questions or concerns later. Time spent with patient/coordination of care with other health professionals (mins):20 Sepsis Event Evaluation Height, Weight, BMI Height: 5'11.00" Weight: 210lbs. 7.0oz. [id number]; 30.79 BMI Method:Stated Exam Exam Patient acknowledged, consented, and participated in this virtual visit which was conducted using real time audio/video Vital Signs Date Time Temp Pulse Resp B/P (MAP) Pulse Ox O2 Delivery O2 Flow Rate FiO2 08/09/21 08:00 58 9 131/83 95 Room Air 08/09/21 07:57 36.0 08/09/21 07:00 61 08/09/21 07:00 65 16 161/95 95 Room Air 08/09/21 06:00 60 17 129/52 95 Room Air 08/09/21 05:00 59 22 136/79 95 Room Air 08/09/21 04:00 36.0 08/09/21 04:00 60 22 152/93 95 Room Air 08/09/21 04:00 97 Room Air 08/09/21 03:00 58 18 123/79 95 Room Air 08/09/21 02:00 60 17 131/75 91 Room Air 08/09/21 01:51 60 08/09/21 01:00 60 17 107/78 91 Room Air 08/09/21 00:00 36.2 08/09/21 00:00 60 26 129/79 90 Room Air 08/08/21 23:59 98 Room Air 08/08/21 23:00 60 17 112/72 97 Room Air 08/08/21 22:00 60 17 123/71 96 Room Air 08/08/21 21:03 63 98 28 08/08/21 21:00 60 16 133/79 96 Room Air 08/08/21 20:00 98 Room Air 08/08/21 20:00 60 19 110/77 98 Room Air 08/08/21 20:00 36.3 08/08/21 19:07 60 08/08/21 19:00 70 16 126/60 100 Room Air 08/08/21 18:30 60 12 111/52 97 Nasal Cannula 2.00 08/08/21 18:10 98 Nasal Cannula 2.00 08/08/21 18:03 58 17 121/67 93 08/08/21 17:08 128/64 08/08/21 15:35 63 20 144/104 (117) 98 I & O 08/09/21 07:00 Intake Total 1450 ml Output Total 1025 ml Balance 425 ml Height & Weight Height: 5'11.00" Weight: 210lbs. 7.0oz. [id number]; 30.79 BMI Method:Stated General Appearance: No Apparent Distress, Chronically ill HEENT: PERRL/EOMI, Normal ENT Inspection, Pharynx Normal, Moist Mucous Membranes Neck: Full Range of Motion, Normal Inspection, Non Tender Respiratory: Chest Non Tender, Lungs Clear, Normal Breath Sounds, No Accessory Muscle Use, No Respiratory Distress Cardiovascular: Regular Rate, Rhythm, No Edema, No Gallop, No JVD, No Murmur, Normal Peripheral Pulses Extremity: Normal Capillary Refill, Normal Inspection, Normal Range of Motion, Non Tender, No Calf Tenderness, No Pedal Edema Neurologic/Psychiatric: Alert, Oriented x3, No Motor/Sensory Deficits, Normal Mood/Affect Skin: Normal Color, Warm/Dry Lymphatic: No Adenopathy Results Lab Laboratory Tests 08/08/21 15:50 08/09/21 04:37 Assessment/Plan Assessment/Plan See free text. Critical Care: Critically Ill Patient GIA SAXENA MD Aug 09, 2021 09:21
--- NOTE | 2021-08-09 14:04 | Consultation-Cardiology ---
HPI-Cardiology Cardiology Consultation: Date of Consultation 08/09/21 Time Seen by a Provider: 11:30 Date of Admission Attending Physician Yaw Aiken DO Admitting Physician Admitting Physician: Cinthya Hopper DO Attending Physician: Cinthya Hopper DO Consulting Physician LUIS CARLOS MASON MD, MA, FACP, FACC, FSCAI, CCDS HPI: Chief Complaint: Reason for Cardiology consultation: Chest discomfort and elevated troponin 75 yo man with known CAD and a h/o CABG who was admitted through the ER on 08/08/21 after he had presented with a severe headache and with midsternal chest discomfort. The discomfort was a feeling of pressure, non-radiating, mod in intensity, w/o associated symptoms (other than headache) and lasting approx 2 hours. Chest discomfort improved with s/l NTG, but headache worsened. Headache improved with iv morphine. Currently, feels back to usual baseline. Headache and chest discomfort have not recurred. Does not report focal weakness. Has some gen weakness and malaise. No shortness of breath or palp or syncope or swelling Review of Systems-Cardiology Review of Systems Constitutional: As described under HPI Eyes: No vision change Ears/Nose/Throat: No ear discharge, No nasal drainage Respiratory: As described under HPI Cardiovascular: As described under HPI Gastrointestinal: No diarrhea, No nausea, No vomiting Genitourinary: No dysuria, No hematuria, No urine frequency changes Musculoskeletal: No back pain, No joint pain Skin: No rash, No ulcerations Psychiatric/Neurological: No seizure, No focal weakness, No syncope Hematologic: No bleeding abnormalities All Other Systems Reviewed Negative Unless Noted: Yes GOX-Sjgtwn-Rtnyxr Hx Patient Social History Marrital Status: single Employed/Student: retired Smoking Status: Former Smoker 2nd Hand Smoke Exposure: Yes (Father was a heavy smoker in his youth) Have you traveled recently?: No Alcohol Use?: No Pt feels they are or have been: No Immunizations Up To Date Tetanus Booster (TDap): Unknown Date of Pneumonia Vaccine: Sep 16, 2017 Date of Influenza Vaccine: Jan 25, 2019 Past Medical History PMH As described under Assessment. Family Medical History Family History: Cancer (LINING OF ABD CAVITY, AT AGE 80) 03 MOTHER Chest pain (FATHER OF [place] AT AGE 83) 03 FATHER Congestive heart failure 03 FATHER Family history: Arthritis 03 MOTHER, Onset:60 years & older Family history: Cardiovascular disease 03 FATHER Heart disease 03 FATHER Hypercholesterolemia 03 FATHER 03 MOTHER Myocardial infarction 03 FATHER Prostate cancer (DIAGNOSED AT 70 OR 71 PER PT) 03 FATHER Stroke 09 SISTER Visual impairment (SISTER WEARS GLASSES ) 09 SISTER No Family History of: Abdominal aortic aneurysm [place]'s disease Alcoholism Aphasia Cancer of colon Cataract Congenital heart disease Cystic fibrosis Dementia Dysphagia Family history: Allergy Family history: Alzheimer's disease Family history: Asthma Family history: Breast disease Family history: Coronary thrombosis Family history: Diabetes mellitus Family history: Gastrointestinal disease Family history: Glaucoma Family history: Hypertension Family history: Osteoporosis Family history: Thyroid disorder Headache Hearing loss Hereditary disease History of - anemia History of - disorder History of - respiratory disease History of drug abuse Human immunodeficiency virus (HIV) seropositivity Infertile Kidney disease Malignant neoplasm of lung Parkinson's disease Psychotic disorder Seizure disorder Tuberculosis Allergies and Home Medications Allergies Coded Allergies: rivaroxaban (Unverified Allergy, Mild, N/V, 10/11/18) Patient Home Medication List Home Medication List Reviewed: Yes Apixaban (Eliquis) 5 Mg Tablet, 5 MG PO BID Prescribed by: CINTHYA HOPPER on 10/21/20 1040 Aspirin (Aspirin EC) 81 Mg Tablet.dr, 81 MG PO DAILY, (Reported) Entered as Reported by: REMIGIO MARTIN on 10/20/20901 Atorvastatin Calcium (Lipitor) 40 Mg Tablet, 40 MG PO HS Prescribed by: CINTHYA HOPPER on 10/21/20 1040 Cefdinir (Cefdinir) 300 Mg Capsule, 300 MG PO BID Prescribed by: ODILON FITZGERALD on 08/04/21 1500 Clopidogrel Bisulfate (Clopidogrel) 75 Mg Tablet, 75 MG PO DAILY Prescribed by: CINTHYA HOPPER on 10/21/20 1040 Metoprolol Succinate (Metoprolol Succinate) 50 Mg Tab.er.24h, 50 MG PO DAILY Prescribed by: CINTHYA HOPPER on 10/21/20 1040 Multivitamin (Multivitamin) 1 Each Tablet, 1 EACH PO DAILY, (Reported) Entered as Reported by: REMIGIO MARTIN on 10/20/20901 [place]-3/Dha/Epa/Fish Oil (Fish Oil 1,000 mg Softgel) 1 Each Capsule, 1 EACH PO DAILY, (Reported) Entered as Reported by: REMIGIO MARTIN on 10/20/20901 Physical Exam-Cardiology Physical Exam Vital Signs/I&O 08/09/21 08/09/21 08/09/21 08/09/21 02:00 03:00 04:00 04:00 Pulse 60 58 60 Resp 17 18 22 B/P (MAP) 131/75 123/79 152/93 Pulse Ox 91 95 97 95 O2 Delivery Room Air Room Air Room Air Room Air 08/09/21 08/09/21 08/09/21 08/09/21 04:00 05:00 06:00 07:00 Temp 36.0 Pulse 59 60 65 Resp 22 17 16 B/P (MAP) 136/79 129/52 161/95 Pulse Ox 95 95 95 O2 Delivery Room Air Room Air Room Air 08/09/21 08/09/21 08/09/21 08/09/21 07:00 07:57 08:00 08:00 Temp 36.0 Pulse 61 58 Resp 9 B/P (MAP) 131/83 Pulse Ox 96 95 O2 Delivery Room Air Room Air 08/09/21 08/09/21 08/09/21 08/09/21 09:00 10:00 11:00 12:00 Pulse 59 60 62 Resp 21 18 21 B/P (MAP) 139/82 142/85 131/116 Pulse Ox 95 94 97 O2 Delivery Room Air Room Air Room Air Room Air 08/09/21 08/09/21 12:00 13:00 Pulse 60 60 Resp 14 B/P (MAP) 139/76 Pulse Ox 93 O2 Delivery Room Air 08/09/21 00:00 Intake Total 1450 ml Output Total 300 ml Balance 1150 ml Capillary Refill : Constitutional: AAO x 3, well-developed, well-nourished HEENT: EOMI, hearing is well preserved Neck: carotid pulses are 2 + bilaterally, with good upstrokes Respiratory: No accessory muscle use; other (good, bilateral air entry) Cardiovascular: regular rate-rhythm, S1 and S2, systolic murmur (soft KARINA at card base) Gastrointestinal: No tender; soft; No guarding, No rebound, No audible bowel sounds Extremities: No clubbing, No cyanosis Neurologic/Psychiatric: oriented x 3, other (moves all limbs equally) Skin: No rash on exposed areas, No ulcerations on exposed areas Data Review Labs Laboratory Tests 08/08/21 15:50: White Blood Count 6.6, Red Blood Count 5.06, Hemoglobin 12.0L, Hematocrit 39L, Mean Corpuscular Volume 77L, Mean Corpuscular Hemoglobin 24L, Mean Corpuscular Hemoglobin Concent 31L, Red Cell Distribution Width 18.1H, Platelet Count 219, Mean Platelet Volume 10.1, Immature Granulocyte % (Auto) 0, Neutrophils (%) (Auto) 52, Lymphocytes (%) (Auto) 29, Monocytes (%) (Auto) 12, Eosinophils (%) (Auto) 6, Basophils (%) (Auto) 1, Neutrophils # (Auto) 3.4, Lymphocytes # (Auto) 1.9, Monocytes # (Auto) 0.8, Eosinophils # (Auto) 0.4H, Basophils # (Auto) 0.1, Immature Granulocyte # (Auto) 0.0, Prothrombin Time 14.0, INR Comment 1.0, Activated Partial Thromboplast Time 31, Sodium Level 134L, Potassium Level 4.6, Chloride Level 103, Carbon Dioxide Level 19L, Anion Gap 12, Blood Urea Nitrogen 25H, Creatinine 1.17, Estimat Glomerular Filtration Rate 64, BUN/Creatinine Ratio 21, Glucose Level 81, Calcium Level 9.4, Corrected Calcium 9.2, Magnesium Level 1.9, Total Bilirubin 0.5, Aspartate Amino Transf (AST/SGOT) 17, Alanine Aminotransferase (ALT/SGPT) 12, Alkaline Phosphatase 102, Myoglobin 55.4, Troponin I 0.116H, Total Protein 7.3, Albumin 4.2 08/09/21 04:37: White Blood Count 5.5, Red Blood Count 4.76, Hemoglobin 11.3L, Hematocrit 37L, M carl Corpuscular Volume 77L, Mean Corpuscular Hemoglobin 24L, Mean Corpuscular Hemoglobin Concent 31L, Red Cell Distribution Width 17.4H, Platelet Count 177, Mean Platelet Volume 10.2, Immature Granulocyte % (Auto) 0, Neutrophils (%) (Auto) 45, Lymphocytes (%) (Auto) 38, Monocytes (%) (Auto) 10, Eosinophils (%) (Auto) 6, Basophils (%) (Auto) 1, Neutrophils # (Auto) 2.5, Lymphocytes # (Auto) 2.1, Monocytes # (Auto) 0.6, Eosinophils # (Auto) 0.3, Basophils # (Auto) 0.1, Immature Granulocyte # (Auto) 0.0, Sodium Level 134L, Potassium Level 4.3, Chloride Level 106, Carbon Dioxide Level 19L, Anion Gap 9, Blood Urea Nitrogen 24H, Creatinine 1.19, Estimat Glomerular Filtration Rate 63, BUN/Creatinine Ratio 20, Glucose Level 81, Calcium Level 8.7, Corrected Calcium 9.0, Total Bilirubin 0.6, Aspartate Amino Transf (AST/SGOT) 14, Alanine Aminotransferase (ALT/SGPT) 11, Alkaline Phosphatase 87, Troponin I 0.123H, Total Protein 6.3L, Albumin 3.6, Triglycerides Level 107, Cholesterol Level 171, LDL Cholesterol Direct 120, VLDL Cholesterol 21, HDL Cholesterol 43 Microbiology 08/08/21 MRSA Screen - Preliminary, Resulted Laboratory Tests 08/08/21 15:50 08/09/21 04:37 A/P-Cardiology Assessment/Admission Diagnosis Small NSTEMI - likely due to disease in a small caliber left circumflex (see below under CAD) Severe headache at presentation on 08/08/21 - managed by Dr Hopper Nonspecific left lower lobe airspace consolidation on CXR of 08/08/21, similar to comparison exam of Sep 2020 - managed by Dr Hopper CAD - H/O CABG 5 vessel at [facility] by Dr. Enrico Fraser in July 2016 - MPI of : This study is indicative of inferolateral and apical ischemia, apical infarction. Localized apical akinesis and inferolateral hypokinesis. Ejection fraction of 37%. Moderate cardiomegaly - Most recent cardiac cath of 07-08-2020: [place] coronary artery disease consisting of severe mid vessel disease of the left anterior descending with patent left internal mammary artery graft to distal left anterior descending, moderately severe ostial and mid vessel disease of a small caliber left circumflex, severe ostial and mid vessel and distal vessel disease of a dominant right coronary with a patent aortocoronary graft to the posterior descending branch of the right coronary without significant disease. Occluded aortocoronary grafts to diagonal and obtuse marginals. 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 ICD implantation on 11/09/[address] Santos. Unsuccessful CS lead implantation. Device functioning normally on interrogation of May 2021 - Echo 06-17-20 showed LVEF 30-35%. Hypokinesis of the anterior and apical myocardium. Grade 1 diastolic dysfunction. LA mod dilated. Mild to mod TR. Mild AoV regurg. PASP 50-55mmHg History of DVT and PE - completed Eliquis tx HLD - statin tx H/o CKD II - III Chronic, bilateral leg swelling - more on the L, likely related to venous insuff Carotid dz - Mild bilat carotid arterial dz per u/s of 4-30-21 Chronic, indwelling, urinary catheter - but patient is unaware of the urologic diagnosis, followed by pcp Raynaud's phenomenon - followed by pcp Discussion and Recomendations * Treat with DAPT and enoxaparin * Continue statin * Continue beta-myrna as tolerate * I had a detailed discussion with regarding his CAD. Given 2 presentations with NSTEMI in a about a year, we recommend consideration of high-risk intervention to the LCx coronary artery. For this a tertiary care facility with surgical back up would be more suitable. He understands all of the issues, hasn't agreed but is considering * D/c NPO today, increase ambulation, change status to stepdown, keep in the hospital and continue to monitor closely * Dr Hopper managing headache and pulmonary consolidation Clinical Quality Measures AMI/AHF: ASA po Prior to arrival: Yes (at home) LUIS CARLOS MASON MD FACP FAC CCDS Aug 09, 2021 14:04
--- NOTE | 2021-08-09 14:33 | Diagnostic Imaging Report ---
PROCEDURE: CT head without contrast. TECHNIQUE: Multiple contiguous axial images were obtained through the brain without the use of intravenous contrast. Auto Exposure Controls were utilized during the CT exam to meet ALARA standards for radiation dose reduction. DATE: August 09, 2021. COMPARISON: CT angiography head and neck January 31, 2019. CT head without contrast January 31, 2019. INDICATION: 75-year-old male, headache. FINDINGS: The ventricles and cerebral spinal fluid spaces are of normal size and configuration for the patient's age. There is no mass effect or midline shift. There is no acute intracranial hemorrhage. There is no abnormal extra-axial fluid collection. There are polypoid lesions in the right and left maxillary sinuses most likely reflecting mucous retention cyst. IMPRESSION: 1. No identified acute intracranial abnormality. Dictated by: Dictated on workstation # [id number]
[2021-08-10 05:37] LABS: BASOPHILS # (AUTO) 0.1 10^3/uL (0.0-0.1); BASOPHILS % (AUTO) 1 % (0-10); EOSINOPHILS # (AUTO) 0.3 10^3/uL (0.0-0.3); EOSINOPHILS % (AUTO) 5 % (0-10); HEMATOCRIT 39 % (40-54); HEMOGLOBIN 11.8 g/dL (13.3-17.7); LYMPHOCYTES # (AUTO) 1.4 10^3/uL (1.0-4.0); LYMPHOCYTES % (AUTO) 25 % (12-44); MEAN CORPUSCULAR HEMOGLOBIN 23 pg (25-34); MEAN CORPUSCULAR HGB CONC 30 g/dL (32-36); MEAN CORPUSCULAR VOLUME 77 fL (80-99); MEAN PLATELET VOLUME 9.9 fL (9.0-12.2); MONOCYTES # (AUTO) 0.7 10^3/uL (0.0-1.0); MONOCYTES % (AUTO) 12 % (0-12); NEUTROPHILS % (AUTO) 56 % (42-75); PLATELET COUNT 202 10^3/uL (130-400); WHITE BLOOD COUNT 5.4 10^3/uL (4.3-11.0)
[2021-08-10 05:57] LABS: ALBUMIN 3.7 GM/DL (3.2-4.5); POTASSIUM 4.5 MMOL/L (3.6-5.0)
[2021-08-10 05:58] LABS: CALCIUM 9.1 MG/DL (8.5-10.1)
[2021-08-10 05:59] LABS: TOTAL PROTEIN 6.6 GM/DL (6.4-8.2)
[2021-08-10 06:01] LABS: BILIRUBIN,TOTAL 0.5 MG/DL (0.1-1.0)
[2021-08-10 06:03] LABS: CREATININE SERUM 1.19 MG/DL (0.60-1.30)
[2021-08-10 06:06] LABS: MAGNESIUM 1.8 MG/DL (1.6-2.4)
[2021-08-10] MEDS: KCL 20 MEQ TAB (K-DUR) PO SCH (06:13)
[2021-08-10] MEDS: POTASSIUM CL 10MEQ/50ML IVPB 50 ML IV SCH (06:13)
[2021-08-10] MEDS: MAGNESIUM 1 GM/100 ML IVPB 100 ML IV SCH (06:13)
--- NOTE | 2021-08-10 07:26 | Diagnostic Imaging Report ---
INDICATION: Mass COMPARISON: 08/08/2021 FINDINGS: Frontal and lateral views of the chest demonstrate normal heart size and pulmonary vascularity. The lungs are clear. There are no signs of infiltrate, pleural effusions or pneumothoraces. The visualized osseous structures show no acute abnormalities. Left-sided AICD and sternotomy wires are noted. Moderate hiatal hernia is also present. IMPRESSION: 1. No acute process. No signs of infiltrates, effusions or pneumothoraces. Dictated by: Dictated on workstation # [id number]
[2021-08-10] MEDS: DOCUSATE SODIUM 100 MG (COLACE) CAP PO SCH (08:53)
[2021-08-10] MEDS: SENNOSIDES 8.6 MG (SENOKOT) TAB PO SCH (08:53)
[2021-08-10] MEDS: ASPIRIN E.C. 81 MG (ECOTRIN) TAB PO SCH (08:53)
--- NOTE | 2021-08-10 09:39 | Progress Note - Cardiology ---
Cardiology SOAP Progress Note Subjective: Lying in bed States he feels good this morning No c/o CP or SOB or palpitations Objective: I&O/Vital Signs 08/09/21 08/10/21 08/10/21 08/10/21 23:59 00:00 00:08 01:00 Temp 36.7 Pulse 57 62 63 Resp 17 B/P (MAP) 110/64 110/64 Pulse Ox 94 O2 Delivery Room Air Room Air Room Air 08/10/21 08/10/21 08/10/21 08/10/21 03:56 04:00 06:42 07:49 Temp 36.7 Pulse 74 61 62 Resp 18 20 B/P (MAP) 113/56 136/73 Pulse Ox 92 96 O2 Delivery Room Air Room Air Room Air 08/10/21 08/10/21 08:00 08:23 Temp 36.9 O2 Delivery Room Air 08/10/21 00:00 Intake Total 750 ml Output Total 1400 ml Balance -650 ml Weight (Pounds): 210 Weight (Ounces): 7.0 Weight (Calculated Kilograms): 95.352383 Constitutional: AAO x 3, well-developed, well-nourished Respiratory: No accessory muscle use; other (good, bilateral air entry) Cardiovascular: regular rate-rhythm, S1 and S2, systolic murmur (soft KARINA at card base) Gastrointestional: No tender; soft; No guarding, No rebound, No audible bowel sounds Extremities: No clubbing, No cyanosis Neurologic/Psychiatric: oriented x 3, other (moves all limbs equally) Skin: No rash on exposed areas, No ulcerations on exposed areas Results/Procedures: Labs Laboratory Tests 08/10/21 05:16: White Blood Count 5.4, Red Blood Count 5.05, Hemoglobin 11.8L, Hematocrit 39L, Mean Corpuscular Volume 77L, Mean Corpuscular Hemoglobin 23L, Mean Corpuscular Hemoglobin Concent 30L, Red Cell Distribution Width 17.6H, Platelet Count 202, Mean Platelet Volume 9.9, Immature Granulocyte % (Auto) 1, Neutrophils (%) (Auto) 56, Lymphocytes (%) (Auto) 25, Monocytes (%) (Auto) 12, Eosinophils (%) (Auto) 5, Basophils (%) (Auto) 1, Neutrophils # (Auto) 3.0, Lymphocytes # (Auto) 1.4, Monocytes # (Auto) 0.7, Eosinophils # (Auto) 0.3, Basophils # (Auto) 0.1, Immature Granulocyte # (Auto) 0.0, Sodium Level 134L, Potassium Level 4.5, Chloride Level 107, Carbon Dioxide Level 18L, Anion Gap 9, Blood Urea Nitrogen 22H, Creatinine 1.19, Estimat Glomerular Filtration Rate 63, BUN/Creatinine Ratio 18, Glucose Level 85, Calcium Level 9.1, Corrected Calcium 9.3, Magnesium Level 1.8, Total Bilirubin 0.5, Aspartate Amino Transf (AST/SGOT) 19, Alanine Aminotransferase (ALT/SGPT) 12, Alkaline Phosphatase 89, Total Protein 6.6, Albumin 3.7 Microbiology 08/08/21 MRSA Screen - Preliminary, Resulted Laboratory Tests 08/08/21 15:50 08/09/21 04:37 08/10/21 05:16 A/P: Assessment: Small NSTEMI - likely due to disease in a small caliber left circumflex (see below under CAD) Severe headache at presentation on 08/08/21 - managed by Dr Molina Nonspecific left lower lobe airspace consolidation on CXR of 08/08/21, similar to comparison exam of Sep 2020 - managed by Dr Molina CAD - H/O CABG 5 vessel at [facility] by Dr. Enrico Fraser in July 2016 - MPI of : This study is indicative of inferolateral and apical ischemia, apical infarction. Localized apical akinesis and inferolateral hypokinesis. Ejection fraction of 37%. Moderate cardiomegaly - Most recent cardiac cath of 07-08-2020: [place] coronary artery disease consisting of severe mid vessel disease of the left anterior descending with patent left internal mammary artery graft to distal left anterior descending, moderately severe ostial and mid vessel disease of a small caliber left ci rcumflex, severe ostial and mid vessel and distal vessel disease of a dominant right coronary with a patent aortocoronary graft to the posterior descending branch of the right coronary without significant disease. Occluded aortocoronary grafts to diagonal and obtuse marginals. 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 ICD implantation on 11/09/[address] Santos. Unsuccessful CS lead implantation. Device functioning normally on interrogation of May 2021 - Echo 06-17-20 showed LVEF 30-35%. Hypokinesis of the anterior and apical myocardium. Grade 1 diastolic dysfunction. LA mod dilated. Mild to mod TR. Mild AoV regurg. 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 Given 2 presentations with NSTEMI in a about a year, we recommend consideration of high-risk intervention to the LCx coronary artery. For this a tertiary care facility with surgical back up would be more suitable. He understands all of the issues, hasn't agreed but is considering - still not agreeable at this time * Dr Molina managing headache and pulmonary consolidation Clinical Quality Measures AMI/AHF: ASA po Prior to arrival: Yes (at home) OPHELIA HUNTER Aug 10, 2021 09:39
--- NOTE | 2021-08-10 09:56 | Progress Note - Cardiology ---
Cardiology SOAP Progress Note Subjective: No cp or palp or syncope or shortness of breath No edema No focal weakness No headache Feels well and wishes to go home today Objective: I&O/Vital Signs 08/09/21 08/10/21 08/10/21 08/10/21 23:59 00:00 00:08 01:00 Temp 36.7 Pulse 57 62 63 Resp 17 B/P (MAP) 110/64 110/64 Pulse Ox 94 O2 Delivery Room Air Room Air Room Air 08/10/21 08/10/21 08/10/21 08/10/21 03:56 04:00 06:42 07:49 Temp 36.7 Pulse 74 61 62 Resp 18 20 B/P (MAP) 113/56 136/73 Pulse Ox 92 96 O2 Delivery Room Air Room Air Room Air 08/10/21 08/10/21 08:00 08:23 Temp 36.9 O2 Delivery Room Air 08/10/21 00:00 Intake Total 750 ml Output Total 1400 ml Balance -650 ml Weight (Pounds): 210 Weight (Ounces): 7.0 Weight (Calculated Kilograms): 95.897951 Constitutional: AAO x 3, well-developed, well-nourished Respiratory: No accessory muscle use; other (good, bilateral air entry) Cardiovascular: regular rate-rhythm, S1 and S2, systolic murmur (soft KARINA at card base) Gastrointestional: No tender; soft; No guarding, No rebound, No audible bowel sounds Extremities: No clubbing, No cyanosis Neurologic/Psychiatric: oriented x 3, other (moves all limbs equally) Skin: No rash on exposed areas, No ulcerations on exposed areas Results/Procedures: Labs Laboratory Tests 08/10/21 05:16: White Blood Count 5.4, Red Blood Count 5.05, Hemoglobin 11.8L, Hematocrit 39L, Mean Corpuscular Volume 77L, Mean Corpuscular Hemoglobin 23L, Mean Corpuscular Hemoglobin Concent 30L, Red Cell Distribution Width 17.6H, Platelet Count 202, Mean Platelet Volume 9.9, Immature Granulocyte % (Auto) 1, Neutrophils (%) (Auto) 56, Lymphocytes (%) (Auto) 25, Monocytes (%) (Auto) 12, Eosinophils (%) (Auto) 5, Basophils (%) (Auto) 1, Neutrophils # (Auto) 3.0, Lymphocytes # (Auto) 1.4, Monocytes # (Auto) 0.7, Eosinophils # (Auto) 0.3, Basophils # (Auto) 0.1, Immature Granulocyte # (Auto) 0.0, Sodium Level 134L, Potassium Level 4.5, Chloride Level 107, Carbon Dioxide Level 18L, Anion Gap 9, Blood Urea Nitrogen 22H, Creatinine 1.19, Estimat Glomerular Filtration Rate 63, BUN/Creatinine Ratio 18, Glucose Level 85, Calcium Level 9.1, Corrected Calcium 9.3, Magnesium Level 1.8, Total Bilirubin 0.5, Aspartate Amino Transf (AST/SGOT) 19, Alanine Aminotransferase (ALT/SGPT) 12, Alkaline Phosphatase 89, Total Protein 6.6, Albumin 3.7 Microbiology 08/08/21 MRSA Screen - Preliminary, Resulted Laboratory Tests 08/08/21 15:50 08/09/21 04:37 08/10/21 05:16 A/P: Assessment: Small NSTEMI - likely due to disease in a small caliber left circumflex (see below under CAD) Severe headache at presentation on 08/08/21 - no acute finding on CT head 08/09/21 - managed by Dr Molina Nonspecific left lower lobe airspace consolidation on CXR of 08/08/21, similar to comparison exam of Sep 2020 - managed by Dr Molina CAD - H/O CABG 5 vessel at [facility] by Dr. Enrico Fraser in July 2016 - MPI of : This study is indicative of inferolateral and apical ischemia, apical infarction. Localized apical akinesis and inferolateral hypokinesis. Ejection fraction of 37%. Moderate cardiomegaly - Most recent cardiac cath of 07-08-2020: [place] coronary artery disease consisting of severe mid vessel disease of the left anterior descending with patent left internal mammary artery graft to distal left anterior descending, moderately severe ostial and mid vessel disease of a small caliber left circumflex, severe ostial and mid vessel and distal vessel disease of a dominant right coronary with a patent aortocoronary graft to the posterior descending branch of the right coronary without significant disease. Occluded aortocoronary grafts to diagonal and obtuse marginals. 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 ICD implantation on 11/09/[address] Santos. Unsuccessful CS lead implantation. Device functioning normally on interrogation of May 2021 - Echo 06-17-20 showed LVEF 30-35%. Hypokinesis of the anterior and apical myocardium. Grade 1 diastolic dysfunction. LA mod dilated. Mild to mod TR. Mild AoV regurg. PASP 50-55mmHg History of DVT and PE - completed Eliquis tx HLD - statin tx H/o CKD II - III Chronic, bilateral leg swelling - more on the L, likely related to venous insuff Carotid dz - Mild bilat carotid arterial dz per u/s of 06-27-20 Chronic, indwelling, urinary catheter - but patient is unaware of the urologic diagnosis, followed by pcp Raynaud's phenomenon - followed by pcp Plan: * Discussed in detail with Mr Banuelos. Discussed with Dr Hearn and with Dr Molina * Have advised PCI to LCx which will be high risk and best done at a tertiary care facility. He had agreed yesterday and I called Dr Hearn at [facility] who accepted him in transfer, but now Mr Banuelos has changed his mind does not wish to have any intervention. Wishes to managed conservatively only. Feels well on current regimen and wishes to go home. Fully understands all treatment options and the implications of his choices * Dr Molina managing headache and pulmonary consolidation Clinical Quality Measures AMI/AHF: ASA po Prior to arrival: Yes (at home) LUIS CARLOS MASON MD FACP [facility] Aug 10, 2021 09:56
[2021-08-10] MEDS ORDERED: ASPI-999 PO (10:13)
--- NOTE | 2021-08-10 10:21 | Discharge Summary ---
Discharge Summary Hospital Course Was the Problem List Reviewed?: Yes Problems/Dx: (1) Chest pain due to CAD Status: Acute (2) CAD (coronary artery disease) of bypass graft Status: Chronic (3) Pacemaker (4) Renal insufficiency Status: Chronic (5) Essential (primary) hypertension Status: Chronic Hospital Course Date of Admission: Aug 08, 2021 at 17:19 Admission Diagnosis : Family Physician/Provider: Yaw Aiken DO Date of Discharge: 08/10/21 Discharge Diagnosis: NSTEMI, unstable angina, CAD severe, small right-sided pleural effusion of uncertain etiology Hospital Course: Pt had an uneventful 3 day hospital course after he was admitted for chest pain and elevated troponin. Dr. Sullivan admitted and placed him on Lovenox, Aspirin, and Statin. Troponin was trended. Pt declined to go to [facility] for high risk cardiac catheterization since he is doing well. He will be seen in follow up with Dr. Sullivan. Labs and Pending Lab Test: Laboratory Tests 08/10/21 05:16: White Blood Count 5.4, Red Blood Count 5.05, Hemoglobin 11.8L, Hematocrit 39L, Mean Corpuscular Volume 77L, Mean Corpuscular Hemoglobin 23L, Mean Corpuscular Hemoglobin Concent 30L, Red Cell Distribution Width 17.6H, Platelet Count 202, Mean Platelet Volume 9.9, Immature Granulocyte % (Auto) 1, Neutrophils (%) (Auto) 56, Lymphocytes (%) (Auto) 25, Monocytes (%) (Auto) 12, Eosinophils (%) (Auto) 5, Basophils (%) (Auto) 1, Neutrophils # (Auto) 3.0, Lymphocytes # (Auto) 1.4, Monocytes # (Auto) 0.7, Eosinophils # (Auto) 0.3, Basophils # (Auto) 0.1, Immature Granulocyte # (Auto) 0.0, Sodium Level 134L, Potassium Level 4.5, Chloride Level 107, Carbon Dioxide Level 18L, Anion Gap 9, Blood Urea Nitrogen 22H, Creatinine 1.19, Estimat Glomerular Filtration Rate 63, BUN/Creatinine Ratio 18, Glucose Level 85, Calcium Level 9.1, Corrected Calcium 9.3, Magnesium Level 1.8, Total Bilirubin 0.5, Aspartate Amino Transf (AST/SGOT) 19, Alanine A minotransferase (ALT/SGPT) 12, Alkaline Phosphatase 89, Total Protein 6.6, Albumin 3.7 Microbiology 08/08/21 MRSA Screen - Preliminary, Resulted Home Meds Active Aspirin 81 Mg Tab.chew 81 Mg PO DAILY Metoprolol Succinate 50 Mg Tab.er.24h 50 Mg PO DAILY Lipitor (Atorvastatin Calcium) 40 Mg Tablet 40 Mg PO HS Clopidogrel (Clopidogrel Bisulfate) 75 Mg Tablet 75 Mg PO DAILY Reported Multivitamin 1 Each Tablet 1 Each PO DAILY Fish Oil 1,000 mg Softgel ([place]-3/Dha/Epa/Fish Oil) 1 Each Capsule 1 Each PO DAILY Aspirin EC (Aspirin) 81 Mg Tablet.dr 81 Mg PO DAILY Assessment/Pt Instructions Cardiology close follow-up Discharge Planning: <30 minutes discharge planning Discharge Instructions Discharge Diet: Cardiac Diet Discharge Physical Examination Vital Signs Vital Signs Date Time Temp Pulse Resp B/P (MAP) Pulse Ox O2 Delivery O2 Flow Rate FiO2 08/10/21 08:23 36.9 08/10/21 08:00 Room Air 08/10/21 07:49 62 20 136/73 96 08/09/21 18:49 0.00 08/08/21 21:03 28 General Appearance: No Apparent Distress, WD/WN, Chronically ill Allergies: Coded Allergies: rivaroxaban (Unverified Allergy, Mild, N/V, 10/11/18) Discharge Summary Date of Admission Aug 08, 2021 at 17:19 Date of Discharge Discharge Date: Aug 10, 2021 Admission Diagnosis Assessment: Unstable angina NSTEMI AF OAC CAD Plan: Cath tomorrow Monitor closely ICU Dr Sullivan Discharge Diagnosis Assessment: Unstable angina NSTEMI AF OAC CAD Plan: Cath ? Monitor closely ICU Dr Sullivna (1) Chest pain due to CAD Status: Acute (2) CAD (coronary artery disease) of bypass graft Status: Chronic (3) Pacemaker (4) Renal insufficiency Status: Chronic (5) Essential (primary) hypertension Status: Chronic Clinical Quality Measures AMI/AHF: ASA po Prior to arrival: Yes (at home) DEBBIE HOPPER DO Aug 10, 2021 10:21
[2021-08-10 12:19] VITALS: BP 141/75
== END 2021-08-10 12:19 | disposition home or self-care (01) ==
LOC: EDUNIT# 15:31 → ER 15:32 → ICU 17:19 → CSD 08-09 16:08
PROVIDERS: ADMIT Internal Medicine; ATTEND Internal Medicine
DX: I25.700 Atherosclerosis of coronary artery bypass graft(s), unspecified, with unstable angina pectoris (principal); I13.0 Hypertensive heart and chronic kidney disease with heart failure and stage 1 through stage 4 chronic kidney disease, or unspecified chronic kidney disease; N18.30 Chronic kidney disease, stage 3 unspecified; I50.20 Unspecified systolic (congestive) heart failure; I21.4 Non-ST elevation (NSTEMI) myocardial infarction; J90 Pleural effusion, not elsewhere classified; I48.91 Unspecified atrial fibrillation; I25.5 Ischemic cardiomyopathy; E78.5 Hyperlipidemia, unspecified; I73.00 Raynaud's syndrome without gangrene; I77.9 Disorder of arteries and arterioles, unspecified; Z79.82 Long term (current) use of aspirin; Z79.01 Long term (current) use of anticoagulants; Z87.891 Personal history of nicotine dependence; Z86.73 Personal history of transient ischemic attack (TIA), and cerebral infarction without residual deficits; Z95.0 Presence of cardiac pacemaker
CPT/HCPCS: 70450; 71045; 71046; 80053 ×3; 80061; 83735 ×2; 83874; 84484 ×2; 85025 ×3; 85610; 85730; 87081; 93005 ×3; 93041; 99285; G0378 ×2; 36415

== ENCOUNTER 2022-01-04 19:51 | Emergency (ER) | payer MEDICARE ==
[~2022-01-04 19:51] MED LIST changes: +LEVO-55 PO; -LEVO500T81 PO; +LEVO750T PO; -LEVO750T39 PO
[2022-01-04 19:58] VITALS: BP 145/81
[2022-01-04] MEDS ORDERED: LIDOCAINE UROJET 2% GEL 10 ML PKG ONE (20:06)
[2022-01-04] MEDS ORDERED: LIDOCAINE UROJET 2% GEL 10 ML PKG TOP ONE (20:15)
--- NOTE | 2022-01-04 20:22 | ED GU-Male ---
General Chief Complaint: Catheter/Drain/Tube Problems Stated Complaint: CATH CHANGE Nursing Triage Note: PATIENT ARRIVAL TO ER VIA PRIVATE VEHICLE WITH REQUEST OF CATH CHANGE. STATES THAT ER IS WHO ALWAYS DOES IT FOR HIM. Source: patient Exam Limitations: no limitations History of Present Illness Date Seen by Provider: Jan 04, 2022 Time Seen by Provider: 20:00 Initial Comments Patient is a 76-year-old male who presents to the emergency department requesting a catheter change. He is a long-term urinary catheter has been in place since 2012 due to urinary retention. He has an appointment with a new urologist next month but is yet to see them. He states he physically pulled the catheter partially out today. He has been seen at this ER several times requesting catheter changes. Patient is also concerned he may have a UTI. He has not had a fever and denies any abdominal pain. Allergies and Home Medications Allergies Coded Allergies: rivaroxaban (Unverified Allergy, Mild, N/V, 10/11/18) Patient Home Medication List Home Medication List Reviewed: Yes Aspirin (Aspirin) 81 Mg Tab.chew, 81 MG PO DAILY Prescribed by: OPHELIA HUNTER on 08/10/21 1013 Atorvastatin Calcium (Lipitor) 40 Mg Tablet, 40 MG PO HS Prescribed by: DEBBIE HOPPER on 10/21/20 1040 Clopidogrel Bisulfate (Clopidogrel) 75 Mg Tablet, 75 MG PO DAILY Prescribed by: DEBBIE HOPPER on 10/21/20 1040 Metoprolol Succinate (Metoprolol Succinate) 50 Mg Tab.er.24h, 50 MG PO DAILY Prescribed by: DEBBIE HOPPER on 10/21/20 1040 Multivitamin (Multivitamin) 1 Each Tablet, 1 EACH PO DAILY, (Reported) Entered as Reported by: REMIGIO MARTIN on 10/20/20901 [place]-3/Dha/Epa/Fish Oil (Fish Oil 1,000 mg Softgel) 1 Each Capsule, 1 EACH PO DAILY, (Reported) Entered as Reported by: REMIGIO MARTIN on 10/20/20901 Review of Systems Review of Systems Constitutional: no symptoms reported EENTM: no symptoms reported Respiratory: no symptoms reported Cardiovascular: no symptoms reported Gastrointestinal: no symptoms reported Genitourinary: see HPI Musculoskeletal: no symptoms reported Skin: no symptoms reported Psychiatric/Neurological: No Symptoms Reported Past Yqftesb-Ydulos-Lrpitd Hx Patient Social History Tobacco Use?: No Use of E-Cig and/or Vaping dev: No Substance use?: No Alcohol Use?: Yes Alcohol type: Beer Alcohol Frequency: Once in a while Pt feels they are or have been: No Immunizations Up To Date Tetanus Booster (TDap): Unknown PED Vaccines UTD: Yes Influenza Vaccine Up-to-Date: Yes; Up-to-Date First/Initial COVID19 Vaccinat: April COVID19 Vaccination Neto: May COVID19 Vaccination Date: APRIL COVID19 Vaccine Commercial Carpenter: ROBERT Seasonal Allergies Seasonal Allergies: No Past Medical History Surgeries: Yes (CATARACT, INCISIONAL HERNIA, ICB) Cardiac, CABG, Eye Surgery, Open Heart Surgery, Pacemaker Respiratory: Yes (PE 4-5 TIMES, HX PNEUMONIA 2016) Pulmonary Embolism Currently Using CPAP: No Currently Using BIPAP: No Cardiac: Yes (CABG 07/2016; PACEMAKER; BIGEMINIY; LBBB; 1ST DEGREE AV BLOCK) Atrial Fibrillation, Cardiomyopathy, Coronary Artery Disease, Deep Vein Thrombosis, Heart Murmur, Irregular Heartbeat Neurological: No Reproductive Disorders: No Sexually Transmitted Disease: No HIV/AIDS: No Genitourinary: Yes (INDWELLING CATHETER) Benign Prostatic Hyperpl, Kidney Infection, Bladder Infection, Neurogenic Bladder, UTI-Chronic Gastrointestinal: Yes (RIGHT INGUINAL HERNIA) Gastroesophageal Reflux, Chronic Constipation Musculoskeletal: Yes (right ankle broken) Fractures Endocrine: No HEENT: Yes (READING GLASSES) Cataract Loss of Vision: Denies Hearing Impairment: Denies Cancer: No Psychosocial: No Integumentary: No Blood Disorders: No Adverse Reaction/Blood Tranf: No (HAS HAD BLOOD WITH NO REACTION) Family Medical History Cancer (LINING OF ABD CAVITY, AT AGE 80) 03 MOTHER Chest pain (FATHER OF OR AT AGE 83) 03 FATHER Congestive heart failure 03 FATHER Family history: Arthritis 03 MOTHER, Onset:60 years & older Family history: Cardiovascular disease 03 FATHER Heart disease 03 FATHER Hypercholesterolemia 03 FATHER 03 MOTHER Myocardial infarction 03 FATHER Prostate cancer (DIAGNOSED AT 72 OR 73 PER PT) 03 FATHER Stroke 09 SISTER Visual impairment (SISTER WEARS GLASSES ) 09 SISTER No Family History of: Abdominal aortic aneurysm Kenton's disease Alcoholism Aphasia Cancer of colon Cataract Congenital heart disease Cystic fibrosis Dementia Dysphagia Family history: Allergy Family history: Alzheimer's disease Family history: Asthma Family history: Breast disease Family history: Coronary thrombosis Family history: Diabetes mellitus Family history: Gastrointestinal disease Family history: Glaucoma Family history: Hypertension Family history: Osteoporosis Family history: Thyroid disorder Headache Hearing loss Hereditary disease History of - anemia History of - disorder History of - respiratory disease History of drug abuse Human immunodeficiency virus (HIV) seropositivity Infertile Kidney disease Malignant neoplasm of lung Parkinson's disease Psychotic disorder Seizure disorder Tuberculosis Cancer, CAD Over 55 Years Old, CVA Physical Exam Vital Signs Vital Signs - First Documented 01/04/22 19:58 Temp 36.8 Pulse 81 Resp 18 B/P (MAP) 145/81 (102) Pulse Ox 99 O2 Delivery Room Air Capillary Refill : Less Than 3 Seconds Height, Weight, BMI Height: 5'11.00" Weight: 210lbs. 7.0oz. 95.619556mf; 30.79 BMI Method:Stated General Appearance: WD/WN, no apparent distress HEENT: PERRL/EOMI, normal ENT inspection, TMs normal, pharynx normal Neck: non-tender, full range of motion, supple, normal inspection Cardiovascular: regular rate, rhythm Respiratory: chest non-tender, lungs clear, normal breath sounds Gastrointestinal: normal bowel sounds, non tender, soft Back: no CVA tenderness Extremities: normal range of motion, non-tender, normal inspection Neurologic/Psychiatric: no motor/sensory deficits, alert, normal mood/affect, oriented x 3 Skin: normal color, warm/dry Progress/Results/Core Measures Suspected Sepsis SIRS Temperature: Pulse: 81 Respiratory Rate: 18 Blood Pressure 145 /81 Mean: 102 Results/Orders My Orders Orders - AUDREY HARKINS APRN Catheter(Urinary) Insert & Ass 03,15 (01/04/22 20:06) Lidocaine 2% (Urojet) (Xylocaine Urojet) (01/04/22 20:15) Lidocaine 2% (Urojet) (Xylocaine Urojet) (01/04/22 20:06) Urine Culture (01/04/22 20:16) Vital Signs/I&O 01/04/22 19:58 Temp 36.8 Pulse 81 Resp 18 B/P (MAP) 145/81 (102) Pulse Ox 99 O2 Delivery Room Air Capillary Refill : Less Than 3 Seconds Blood Pressure Mean: 102 Departure Impression Primary Impression: Urinary catheter dysfunction Qualified Codes: T83.018A - Breakdown (mechanical) of other urinary catheter, initial encounter Additional Impression: Urinary catheter change required Disposition: 01 HOME, SELF-CARE Condition: Stable Departure-Patient Inst. Decision time for Depature: 20:20 Referrals: [facility] (PCP) Primary Care Physician CAROL CHURCH DO (Family) Primary Care Physician Patient Instructions: How to Care for Your [place]hu Catheter, Male AUDREY HARKINS SITE SPECIALIST Jan 04, 2022 20:22
== END 2022-01-04 20:33 | disposition home or self-care (01) ==
LOC: EDUNIT# 19:51 → ER 19:52
DX: T83.9XXA Unspecified complication of genitourinary prosthetic device, implant and graft, initial encounter (principal); Z46.6 Encounter for fitting and adjustment of urinary device; Z87.440 Personal history of urinary (tract) infections; Y82.9 Unspecified medical devices associated with adverse incidents
CPT/HCPCS: 51702; 87088